=== PATIENT | male | born 1955 | race Caucasian/White ===

== ENCOUNTER 2016-08-02 19:27 | Emergency (ER) | payer MEDICAID, MEDICARE ==
[~2016-08-02] VITALS: Ht 182.9 cm; Wt 113.4 kg
[~2016-08-02 19:27] MED LIST: ACHD5005 PO; ALBU0.632 IH; ALBU8.5HRX IH; ALPR-557 PO; ALPR1T PO; ALPR1TAB2 PO; ASP81TEC PO; CLN150C PO; CYCL10TA9 PO; ESCI20TA38 PO; GABA-488 PO; GBPN300C PO; HYDR25TA4 PO; IBP600T1 PO; LCT30U PO; LISI1TAB PO; MAGN400T6 PO; METO100T2 PO; MGX400T PO; MRTZ15T PO; MULT-974 PO; NAPR-243 PO; ORPH100T PO; ORPHENADRINE ER PO; OXYC10TA7 PO; PRD20T PO; PROP20TA23 PO; PROP40TA5 PO; RT-ALBUINH IH; SULF-222 PO; TRZ100T PO
--- NOTE | 2016-08-02 19:56 | ED Cough/URI ---
General Chief Complaint: Respiratory Problems Stated Complaint: TROUBLE BREATHING Nursing Triage Note: Patient reports SOA x 5 days and being unable to sleep Source: patient Exam Limitations: no limitations History of Present Illness Time seen by provider: 19:55 Initial Comments Patient complains of wheezing and dyspnea for the past week. He denies fevers or chills. He has a slight cough. No chest pain. No edema. No calf pain. Allergies and Home Medications Allergies Coded Allergies: No Known Drug Allergies (Unverified , 12/05/11) Home Medications Alprazolam 1 Mg Tab, 1 MG PO TID PRN for ANXIETY, (Reported) NEEDED FOR ANXIETY Aspirin 81 Mg Tabec, 81 MG PO DAILY, (Reported) Cyclobenzaprine Hcl 10 Mg Tablet, 10 MG PO BID PRN for MUSCLE SPASMS, (Reported) NEEDED FOR MUSCLE SPASMS Escitalopram Oxalate 20 Mg Tablet, 20 MG PO DAILY, (Reported) Gabapentin 300 Mg Cap, 300 MG PO BID, (Reported) TAKES IN THE MORNING AND AROUND 1400 Gabapentin 300 Mg Capsule, 1,200 MG PO HS, (Reported) TAKES 4 (300MG) CAPSULES AT BEDTIME Hydrochlorothiazide 25 Mg Tablet, 25 MG PO DAILY, (Reported) Mirtazapine 15 Mg Tab, 15 MG PO HS, (Reported) Multivitamin 1 Each Tablet, 1 TAB PO DAILY, (Reported) Propranolol Hcl 40 Mg Tablet, 40 MG PO TID, (Reported) Constitutional: no symptoms reported Respiratory: cough, dyspnea on exertion, short of breath Cardiovascular: no symptoms reported, No chest pain, No edema Gastrointestinal: No abdominal pain Musculoskeletal: no symptoms reported All Other Systems Reviewed Negative Unless Noted: Yes Past Wlwmedz-Winlyy-Jctdki Hx Patient Social History Alcohol Use: Denies Use Recreational Drug Use: No Smoking Status: Never a Smoker Recent Foreign Travel: No Contact w/Someone Who Travel: No Recent Infectious Disease Expo: No Recent Hopitalizations: No Immunizations Up To Date Tetanus Booster (TDap): More than 5yrs PED Vaccines UTD: No Date of Pneumonia Vaccine: Jan 12, 2012 Date of Influenza Vaccine: Jan 11, 2014 Seasonal Allergies Seasonal Allergies: Yes Surgeries HX Surgeries: Yes (CARDIAC STENT) Respiratory Hx Respiratory Disorders: Yes Respiratory Disorders: Sleep Apnea, COPD Cardiovascular Hx Cardiac Disorders: Yes (CHF, CARDIAC STENT X1 ) Cardiac Disorders: Heart Murmur, Hypertension Neurological Hx Neurological Disorders: Yes Neurological Disorders: TIA Reproductive System Hx Reproductive Disorders: No Sexually Transmitted Disease: No HIV/AIDS: No Genitourinary Hx Genitourinary Disorders: No Gastrointestinal Hx Gastrointestinal Disorders: Yes (HEPATITIS C) Gastrointestinal Disorders: Hepatitis Musculoskeletal Hx Musculoskeletal Disorders: No (FX RIGHT THUMB, LEFT LEG AND NOSE, left hip) Musculoskeletal Disorders: Fractures Endocrine Hx Endocrine Disorders: No HEENT HX ENT Disorders: No Cancer Hx Cancer: Yes (lip, from chewing tobacco) Psychosocial Hx Psychiatric Problems: Yes Behavioral Health Disorders: Sleep Difficulties, Anxiety, Depression Integumentary HX Skin/Integumentary Disorder: No Blood Transfusions Hx Blood Disorders: Yes (HEPATITIS) Adverse Reaction to a Blood Tr: No Reviewed Nursing Assessment Reviewed/Agree w Nursing PMH: Yes Family Medical History Significant Family History: No Pertinent Family Hx Family Medial History: Family history: Hypertension Heart disease Physical Exam Vital Signs Vital Sign - Last 12Hours 08/02/16 19:48 Temp 98.2 Pulse 61 Resp 18 B/P (MAP) 174/76 Pulse Ox 95 Capillary Refill : Less Than 3 Seconds General Appearance: WD/WN, no apparent distress Eyes: Bilateral Eye EOMI, Bilateral Eye PERRL HEENT: pharynx normal Neck: supple Respiratory: lungs clear, normal breath sounds Cardiovascular: regular rate, rhythm, no edema Gastrointestinal: non tender, soft Extremities: normal inspection Neurologic/Psychiatric: alert, normal mood/affect Skin: normal color, warm/dry Progress/Results/Core Measures Results/Orders My Orders Orders - TARA SANABRIA MD Chest Pa/Lat (2 View) (08/02/16 19:52) Vital Signs/I&O Vital Sign - Last 12Hours 08/02/16 19:48 Temp 98.2 Pulse 61 Resp 18 B/P (MAP) 174/76 Pulse Ox 95 Blood Pressure Mean: 108 Departure Impression Impression: Primary Impression: Dyspnea Additional Impression: Upper respiratory infection Disposition: 01 HOME, SELF-CARE Condition: Stable Departure-Patient Inst. Decision time for Depature: 20:53 Referrals: [facility] (PCP/Family) Primary Care Physician Patient Instructions: Shortness of Breath (Dyspnea) Add. Discharge Instructions: See your DrEzio next week as soon as possible. All discharge instructions reviewed with patient and/or family. Voiced understanding. TARA SANABRIA MD Aug 02, 2016 19:56
--- NOTE | 2016-08-02 20:41 | Diagnostic Imaging Report ---
EXAMINATION: CHEST (PA AND LATERAL) CLINICAL INDICATION: 61-year-old male, difficulty breathing. COMPARISON: March 17, 2014. FINDINGS: There are redemonstrated right paratracheal calcifications as well as right hilar calcification likely relating to calcified lymph nodes and sequela of prior granulomatous disease. These are unchanged. Stable overall appearance of the cardiomediastinal silhouette. There is no identified pneumothorax. There is no pleural effusion. There is no identified focal airspace consolidation. There are areas of productive bone formation in the distribution of the coracoclavicular ligaments on the right likely relating to sequela of remote prior injury. IMPRESSION: 1. No identified acute cardiopulmonary abnormality. 2. Sequela of prior granulomatous disease. Dictated by: Dictated on workstation # [id number]
[2016-08-02 20:55] VITALS: BP 168/74
== END 2016-08-02 20:55 | disposition home or self-care (01) ==
LOC: EDUNIT# 19:27 → ER 19:28
DX: J06.9 Acute upper respiratory infection, unspecified (principal); H44.9 Unspecified disorder of globe; I10 Essential (primary) hypertension; Z79.82 Long term (current) use of aspirin; Z79.899 Other long term (current) drug therapy
CPT/HCPCS: 71020; 99282

== ENCOUNTER 2018-02-08 18:46 | Emergency (ER) | payer MEDICARE ==
[~2018-02-08] VITALS: Ht 182.9 cm; Wt 106.6 kg
[2018-02-08 19:35] LABS: BASOPHILS % (AUTO) 0 % (0-10); EOSINOPHILS # (AUTO) 0.2 10^3/uL (0.0-0.3); EOSINOPHILS % (AUTO) 3 % (0-10); HEMATOCRIT 42 % (40-54); HEMOGLOBIN 15.3 G/DL (13.3-17.7); LYMPHOCYTES # (AUTO) 2.8 X 10^3 (1.0-4.0); LYMPHOCYTES % (AUTO) 37 % (12-44); MEAN CORPUSCULAR HEMOGLOBIN 32 PG (25-34); MEAN CORPUSCULAR HGB CONC 37 G/DL (32-36); MEAN CORPUSCULAR VOLUME 87 FL (80-99); MONOCYTES # (AUTO) 0.7 X 10^3 (0.0-1.0); MONOCYTES % (AUTO) 9 % (0-12); NEUTROPHILS # (AUTO) 3.9 X 10^3 (1.8-7.8); NEUTROPHILS % (AUTO) 51 % (42-75); PLATELET COUNT 153 10^3/uL (130-400); RED BLOOD COUNT 4.79 10^6/uL (4.35-5.85); RED CELL DISTRIBUTION WIDTH 12.2 % (10.0-14.5); WHITE BLOOD COUNT 7.6 10^3/uL (4.3-11.0)
[2018-02-08 19:52] LABS: BILIRUBIN,URINE NEGATIVE (NEGATIVE); CLARITY,URINE CLEAR; COLOR,URINE YELLOW; GLUCOSE, URINE (UA) NEGATIVE (NEGATIVE); KETONES,URINE 1+ (NEGATIVE); LEUKOCYTE ESTERASE ,URINE 1+ (NEGATIVE); NITRITE,URINE NEGATIVE (NEGATIVE); PH,URINE 5 (5-9); PROTEIN,URINE NEGATIVE (NEGATIVE); UROBILINOGEN,URINE NORMAL (NORMAL)
[2018-02-08 20:02] LABS: ALBUMIN 4.5 GM/DL (3.2-4.5); BILIRUBIN,TOTAL 0.5 MG/DL (0.1-1.0); CALCIUM 11.7 MG/DL (8.5-10.1); CREATININE SERUM 1.39 MG/DL (0.60-1.30); POTASSIUM 3.9 MMOL/L (3.6-5.0); TOTAL PROTEIN 7.8 GM/DL (6.4-8.2)
[2018-02-08 20:05] LABS: BACTERIA,URINE FEW /HPF; RBC,URINE RARE /HPF; SQUAMOUS EPITHELIAL CELL,UR 0-2 /HPF
--- NOTE | 2018-02-08 20:27 | ED GU-Male ---
General Chief Complaint: Abdominal/GI Problems Stated Complaint: N/V/D Nursing Triage Note: PT STATES HE HAS BEEN EXPERIENCING N/V/D FOR THE LAST THREE WEEKS. STATES IN THE MORNING HE VOMITS FOAMY EMESIS THAT IS CLEAR-GREENISH IN COLOR. STATES STOOLS ARE ALSO GREEN IN COLOR. Source: patient Exam Limitations: no limitations History of Present Illness Date Seen by Provider: Feb 08, 2018 Time Seen by Provider: 19:15 Initial Comments The patient is a 62 year old male who presents to the emergency room with complaints of nausea, vomiting, and diarrhea for the past 3 weeks. Denies abdominal pain. Timing/Duration: week (3 weeks) Associated Symptoms: nausea/vomiting Allergies and Home Medications Allergies Coded Allergies: No Known Drug Allergies (Unverified , 12/05/11) Home Medications Alprazolam 1 Mg Tab, 1 MG PO TID PRN for ANXIETY, (Reported) NEEDED FOR ANXIETY Aspirin 81 Mg Tabec, 81 MG PO DAILY, (Reported) Cyclobenzaprine Hcl 10 Mg Tablet, 10 MG PO BID PRN for MUSCLE SPASMS, (Reported) NEEDED FOR MUSCLE SPASMS Escitalopram Oxalate 20 Mg Tablet, 20 MG PO DAILY, (Reported) Gabapentin 300 Mg Cap, 300 MG PO BID, (Reported) TAKES IN THE MORNING AND AROUND 1400 Gabapentin 300 Mg Capsule, 1,200 MG PO HS, (Reported) TAKES 4 (300MG) CAPSULES AT BEDTIME Hydrochlorothiazide 25 Mg Tablet, 25 MG PO DAILY, (Reported) Mirtazapine 15 Mg Tab, 15 MG PO HS, (Reported) Multivitamin 1 Each Tablet, 1 TAB PO DAILY, (Reported) Ondansetron 4 Mg Tab.rapdis, 4 MG SL Q4H PRN for NAUSEA/VOMITING-1ST LINE Prescribed by: LUIS ENRIQUE JAMIL on 02/08/182035 Propranolol Hcl 40 Mg Tablet, 40 MG PO TID, (Reported) Sulfamethoxazole/Trimethoprim 1 Each Tablet, 1 EACH PO BID Prescribed by: LUIS ENRIQUE JAMIL on 02/08/182035 Patient Home Medication List Home Medication List Reviewed: Yes Review of Systems Review of Systems Constitutional: no symptoms reported, see HPI Gastrointestinal: see HPI, diarrhea, nausea, vomiting All Other Systemes Reviewed Negative Unless Noted: Yes Past Kkrpxvp-Kxjhfs-Jcvbag Hx Past Med/Social Hx: Reviewed Nursing Past Med/Soc Hx Patient Social History Alcohol Use: Occasionally Uses Alcohol Beverage of Choice: Beer Recreational Drug Use: No (6-7 YEARS CLEAN OF IV DRUGS) Smoking Status: Current Everyday Smoker Type Used: Smokeless Tobacco Recent Foreign Travel: No Contact w/Someone Who Travel: No Recent Infectious Disease Expo: No Recent Hopitalizations: No Immunizations Up To Date Tetanus Booster (TDap): More than 5yrs PED Vaccines UTD: No Date of Pneumonia Vaccine: Jan 12, 2012 Date of Influenza Vaccine: Jan 11, 2014 Seasonal Allergies Seasonal Allergies: Yes Past Medical History Surgeries: Yes (CARDIAC STENT) Respiratory: Yes Sleep Apnea, COPD Cardiac: Yes (CHF, CARDIAC STENT X1 ) Heart Murmur, Hypertension Neurological: Yes TIA Reproductive Disorders: No Sexually Transmitted Disease: No HIV/AIDS: No Gastrointestinal: Yes (HEPATITIS C) Hepatitis Musculoskeletal: No (FX RIGHT THUMB, LEFT LEG AND NOSE, left hip) Fractures Endocrine: No Cancer: Yes (lip, from chewing tobacco) Psychosocial: Yes Sleep Difficulties, Anxiety, Depression Integumentary: No Blood Disorders: Yes (HEPATITIS) Adverse Reaction/Blood Tranf: No Family Medical History Reviewed Nursing Family Hx Family history: Hypertension Heart disease No Pertinent Family Hx Physical Exam Vital Signs Vital Signs - First Documented 02/08/18 19:15 Temp 98.4 Pulse 107 Resp 22 B/P (MAP) 152/115 (127) Pulse Ox 96 O2 Delivery Room Air Capillary Refill : Less Than 3 Seconds Height, Weight, BMI Height: 6'0" Weight: 235lbs. oz. [id number]; 27.12 BMI Method:Stated General Appearance: WD/WN, no apparent distress Cardiovascular: normal peripheral pulses, regular rate, rhythm, no edema, no gallop, no JVD, no murmur Respiratory: chest non-tender, lungs clear, normal breath sounds, no respiratory distress, no accessory muscle use Gastrointestinal: normal bowel sounds, non tender, soft, no organomegaly, no pulsatile mass Neurologic/Psychiatric: alert, normal mood/affect, oriented x 3 Skin: normal color, warm/dry Progress/Results/Core Measures Suspected Sepsis Recent Fever Within 48 Hours: No Infection Criteria Present: Suspected New Infection New/Unexplained Altered Menta: No Sepsis Screen: Possible Sepsis Risk SIRS Temperature:98.4 Pulse: 107 Respiratory Rate: 22 Laboratory Tests 02/08/18 19:28: White Blood Count 7.6 Blood Pressure 152 /115 Mean: 127 Laboratory Tests 02/08/18 19:28: Creatinine 1.39H, Platelet Count 153, Total Bilirubin 0.5 Results/Orders Lab Results Laboratory Tests Test 02/08/18 19:28 02/08/18 19:41 Range/Units White Blood Count 7.6 4.3-11.0 10^3/uL Red Blood Count 4.79 4.35-5.85 10^6/uL Hemoglobin 15.3 13.3-17.7 G/DL Hematocrit 42 40-54 % Mean Corpuscular Volume 87 80-99 FL Mean Corpuscular Hemoglobin 32 25-34 PG Mean Corpuscular Hemoglobin Concent 37 H 32-36 G/DL Red Cell Distribution Width 12.2 10.0-14.5 % Platelet Count 153 130-400 10^3/uL Mean Platelet Volume 10.0 7.4-10.4 FL Neutrophils (%) (Auto) 51 42-75 % Lymphocytes (%) (Auto) 37 12-44 % Monocytes (%) (Auto) 9 0-12 % Eosinophils (%) (Auto) 3 0-10 % Basophils (%) (Auto) 0 0-10 % Neutrophils # (Auto) 3.9 1.8-7.8 X 10^3 Lymphocytes # (Auto) 2.8 1.0-4.0 X 10^3 Monocytes # (Auto) 0.7 0.0-1.0 X 10^3 Eosinophils # (Auto) 0.2 0.0-0.3 10^3/uL Basophils # (Auto) 0.0 0.0-0.1 10^3/uL Sodium Level 135 135-145 MMOL/L Potassium Level 3.9 3.6-5.0 MMOL/L Chloride Level 100 98-107 MMOL/L Carbon Dioxide Level 22 21-32 MMOL/L Anion Gap 13 5-14 MMOL/L Blood Urea Nitrogen 18 7-18 MG/DL Creatinine 1.39 H 0.60-1.30 MG/DL Estimat Glomerular Filtration Rate 52 BUN/Creatinine Ratio 13 Glucose Level 86 70-105 MG/DL Calcium Level 11.7 H 8.5-10.1 MG/DL Corrected Calcium 11.3 H 8.5-10.1 MG/DL Total Bilirubin 0.5 0.1-1.0 MG/DL Aspartate Amino Transf (AST/SGOT) 39 H 5-34 U/L Alanine Aminotransferase (ALT/SGPT) 30 0-55 U/L Alkaline Phosphatase 70 40-136 U/L Total Protein 7.8 6.4-8.2 GM/DL Albumin 4.5 3.2-4.5 GM/DL Lipase 47 8-78 U/L Urine Color YELLOW Urine Clarity CLEAR Urine pH 5 5-9 Urine Specific [place] 1.020 1.016-1.022 Urine Protein NEGATIVE NEGATIVE Urine Glucose (UA) NEGATIVE NEGATIVE Urine Ketones 1+ H NEGATIVE Urine Nitrite NEGATIVE NEGATIVE Urine Bilirubin NEGATIVE NEGATIVE Urine Urobilinogen NORMAL NORMAL MG/DL Urine Leukocyte Esterase 1+ H NEGATIVE Urine RBC (Auto) NEGATIVE NEGATIVE Urine RBC RARE /HPF Urine WBC 5-10 H /HPF Urine Squamous Epithelial Cells 0-2 /HPF Urine Crystals NONE /LPF Urine Bacteria FEW H /HPF Urine Casts NONE /LPF Urine Mucus NEGATIVE /LPF Urine Culture Indicated YES Micro Results Microbiology 02/08/18 Urine Culture - Final, Complete NO GROWTH My Orders Orders - LUIS ENRIQUE JAMIL Comprehensive Metabolic Panel (02/08/18 19:20) Lipase (02/08/18 19:20) Ua Culture If Indicated (02/08/18 19:20) Saline Lock/Iv-Start (02/08/18 19:20) Cbc With Automated Diff (02/08/18 19:20) Urine Culture (02/08/18 19:41) Sulfamethoxazole/Trimet Ds Tab (Bactrim (02/08/18 20:45) Rx-Ondansetron Po (Rx-Zofran Po) (02/08/18 20:37) Vital Signs/I&O 02/08/18 02/08/18 19:15 21:10 Temp 98.4 98.3 Pulse 107 78 Resp 22 18 B/P (MAP) 152/115 (127) 136/96 (109) Pulse Ox 96 98 O2 Delivery Room Air Room Air Capillary Refill : Less Than 3 Seconds Blood Pressure Mean: 127 Departure Impression Primary Impression: Urinary tract infection Disposition: 01 HOME, SELF-CARE Condition: Stable/Unchanged Departure-Patient Inst. Decision time for Depature: 20:34 Referrals: [facility] (PCP) Primary Care Physician ROSIO IRBY (Family) Primary Care Physician Patient Instructions: Urinary Tract Infection, Adult (DC) Add. Discharge Instructions: Take medications as directed. Follow-up with your primary care provider within 1 week for recheck. Call tomorrow morning to [facility] and let them know he was seen in the emergency room and imaging a to be seen within 1 week. Drink plenty of clear liquids like water to stay hydrated. Return back to the emergency room for any worsening symptoms or concerns as needed. All discharge instructions reviewed with patient and/or family. Voiced understanding. Scripts Ondansetron (Zofran Odt) 4 Mg Tab.rapdis 4 MG SL Q4H PRN for NAUSEA/VOMITING-1ST LINE, #14 TAB Prov: LUIS ENRIQUE JAMIL 02/08/18 Sulfamethoxazole/Trimethoprim (Bactrim Ds Tablet) 1 Each Tablet 1 EACH PO BID for 7 Days, #14 TAB Prov: LUIS ENRIQUE JAMIL 02/08/18 LUIS ENRIQUE JAMIL Feb 08, 2018 20:27
[2018-02-08] MEDS ORDERED: SULF1TAB35 PO (20:36)
[2018-02-08] MEDS ORDERED: ONDA4TAB8 SL (20:36)
[2018-02-08] MEDS ORDERED: RX-ONDANSETRON 4 MG ODT (ZOFRAN) PPK #4 PO STA (20:37)
[2018-02-08] MEDS ORDERED: TRIM/SULFAMETH 160/800 (SEPTRA DS) TAB PO ONE (20:45)
[2018-02-08 21:10] VITALS: BP 136/96
--- OUTSIDE RECORDS SUMMARY | 2018-02-08 21:11 | XMS REPORT ---
Author Author ROSIO IRBY Organization [facility] Address [address] [place] [address] Care Team Providers Care Ribbon Winder Name Role Phone ROSIO IRBY Unavailable PROBLEMS Type Condition ICD9-CM Code ZZR17-GR Code Onset Dates Condition Status SNOMED Code Problem History of alcohol abuse Z87.898 Active 579032624 Problem Allergic rhinitis, unspecified allergic rhinitis type J30.9 Active 88939848 Problem Chronic hepatitis C without hepatic coma B18.2 Active 579448727 Problem Mood disorder F39 Active 48289502 Problem Other chronic pain G89.29 Active 66953939 Problem Mild episode of recurrent major depressive disorder F33.0 Active 574802756 Problem Obsessive compulsive disorder F42 Active 296569116 Problem Hyperammonemia E72.20 Active 6582460 Problem Generalized anxiety disorder F41.1 Active 76775399 Problem Hypertension, benign I10 Active 48667682 ALLERGIES No Known Allergies ENCOUNTERS Encounter Location Date Diagnosis [place] [id number] [place] [address] 44914- 8451 Jan, Mood disorder F39 [facility] [id number] [place] [address] 45398- 8111 Jan, Chronic hepatitis C without hepatic coma B18.2 [facility] [id number] [place] [address] 80884- 2463 Dec, Mild episode of recurrent major depressive disorder F33.0 ; Other chronic pain G89.29 ; Pain in left shoulder M25.512 and Pain in right shoulder M25.511 [facility] [id number] [place] [address] 52314- 3443 Dec, Chronic hepatitis C without hepatic coma B18.2 [place] [id number] [place] [address] 18425- 8489 Nov, Chronic hepatitis C without hepatic coma B18.2 [facility] [id number] [address] 3503 Oct, Bronchitis J40 [facility] [id number] [place] [address] 79285- 2241 10 Oct, 2017 Chronic hepatitis C without hepatic coma B18.2 and Cough R05 [facility] [id number] [place] [address] 44449- 0406 Sep, Chronic hepatitis C without hepatic coma B18.2 [facility] [id number] [place] [address] 59786- 6725 August, Chronic hepatitis C without hepatic coma B18.2 [facility] [id number] [place] [address] 40627- 0716 Jul, Chronic hepatitis C without hepatic coma B18.2 [facility] [id number] [place] [address] 63376- 6563 Jul, Generalized anxiety disorder F41.1 ; Mood disorder F39 and History of hepatitis C Z86.19 [facility] [id number] [place] [address] 57897- 0749 Jul, Chronic hepatitis C without hepatic coma B18.2 [facility] [id number] [address]- 9833 Jun, Chronic hepatitis C without hepatic coma B18.2 [facility] [id number] [address]- 7472 Jun, [facility] [id number] [place] [address] 47586- 6914 May, Chronic hepatitis C without hepatic coma B18.2 [facility] [id number] [place] [address] 17588- 4871 May, Hypertension, benign I10 [facility] [id number] [place] [address] 85538- 9934 Apr, Chronic hepatitis C without hepatic coma B18.2 [facility] [id number] [place] [address] 70395- 9480 Apr, Hypertension, benign I10 [facility] [id number] [place] [address] 99258- 9864 Mar, Chronic hepatitis C without hepatic coma B18.2 [facility] [address] 10762- 7921 Mar, Hypertension, benign I10 [place] [address] 99633- 9186 Mar, Hypertension, benign I10 ; Encounter for immunization Z23 and Strain of right Achilles tendon, initial encounter S86.011A [place] [address] 07620- 5130 Feb, Chronic hepatitis C without hepatic coma B18.2 [place] [address] 90984- 5125 Jan, Chronic hepatitis C without hepatic coma B18.2 [facility] [address] 75466 -5096 Jan, Toe pain, right M79.674 and Cellulitis of foot, right L03.115 [facility] [id number] [place] [address] 32916- 1125 Dec, Chronic hepatitis C without hepatic coma B18.2 [facility] [id number] [place] [address] 53875- 7347 Nov, Chronic hepatitis C without hepatic coma B18.2 and Eczema of both hands L30.9 [place] [address] 14601- 3831 Nov, [facility] [id number] [place] [address] 65573- 1998 Oct, [facility] [address] 15253- 1898 Sep, [facility] [address] [address]- 8143 August, [facility] [address] 3651 August, [facility] [address] [place] [address]- 5396 Jul, [facility] [id number] [place] [address] 30216- 1761 Jul, [facility] [address], [place] [address]- 6648 Jun, [facility] [address] [place] [address]- 2849 Jun, [facility] [address] [address]- 9050 May, [facility] [address], [place] [address]- 7644 Apr, Chronic hepatitis C without hepatic coma B18.2 ; Hyperglycemia R73.9 and Hypertension, benign I10 [facility] [address], [place] [address]- 2644 Apr, Chronic hepatitis C without hepatic coma B18.2 ; Mood disorder F39 ; Hypertension, benign I10 and Hyperglycemia R73.9 [facility] [address], [place] [address]- 0474 Apr, [facility] [address] [place] [address]- 8082 Apr, [facility] [address], [place] [address]- 5698 Apr, [facility] [address], [place] [address]- 6435 Feb, [facility] [address], [place] [address]- 3334 Feb, [facility] [id number] [place] [address] 54258- 5682 Feb, [facility] [id number] [place] [address] 43149- 0998 Feb, [facility] [id number] [place] [address] 57403- 4889 Jan, [facility] [address] 10654- 4047 Jan, Chronic hepatitis C without hepatic coma B18.2 ; Mood disorder F39 ; Encounter for immunization Z23 and Chronic viral hepatitis C B18.2 [facility] [id number] [place] [address] 95509- 8343 Jan, [facility] [id number] [place] [address] 66150- 5861 Jan, [facility] [id number] [place] [address] 95445- 2948 Dec, [facility] [id number] [place] [address] 90845- 8779 Dec, [facility] [id number] [place] [address] 41594- 8502 Nov, [facility] [id number] [place] [address] 11130- 3767 Nov, Weakness of both legs M62.81 [facility] [id number] [place] [address] 18917- 4498 Nov, [facility] [id number] [place] [address] 91958- 5656 Nov, [facility] [id number] [place] [address] 93653- 9764 Nov, [facility] [id number] [place] [address] 96717- 6304 Nov, Eczema, unspecified type L30.9 [facility] [address], [place] [address]- 4658 Nov, [facility] [id number] [place] [address] 24091- 7299 Nov, Eczema, unspecified type L30.9 ; Cessation of tobacco use in previous 12 months Z87.891 and Weakness of both legs M62.81 [facility] [id number] [place] [address] 32727- 4935 Oct, [facility] [id number] [place] [address] 23653- 7363 Oct, [facility] [id number] [place] [address] 73198- 6540 Oct, [place] [id number] [place] [address] 35972- 5316 Oct, Chronic viral hepatitis C B18.2 [place] [id number] [place] [address] 37833- 7845 Sep, [place] [id number] [place] [address] 82497- 5286 Sep, 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 and Generalized anxiety disorder F41.1 [place] [address], [place] [address]- 1835 Sep, [facility] [id number] [address]- 1476 August, [facility] [address], [place] [address]- 6253 August, Hyperammonemia E72.20 [place] [id number] [place] [address] 32585- 2392 August, Hyperammonemia E72.20 [facility] [address], [place] [address]- 0832 August, Hyperammonemia E72.20 and Chronic hepatitis C without hepatic coma B18.2 [facility] [address] [place] [address] 2546 August, Chronic viral hepatitis C B18.2 [facility] [address] [place] [address] 2546 August, [facility] [address] [place] [address] 2546 28 Jul, 2015 Chronic viral hepatitis C B18.2 and Hyperammonemia E72.20 [facility] [address] [place] [address] 2546 Jul, Chronic viral hepatitis C B18.2 [facility] [address] [place] [address] 2546 Jul, [facility] [address], [place] [address] 2546 Jul, [facility] [address], [place] [address] 2546 28 Jun, 2015 [facility] [address], [place] [address] 2546 23 Jun, 2015 Chronic viral hepatitis C B18.2 and Hyperammonemia E72.20 [facility] [address], [place] [address] 2546 Jun, [facility] [address], [place] [address] 2546 18 Jun, 2015 [facility] [address], [place] [address] 2546 16 Jun, 2015 Chronic viral hepatitis C B18.2 [facility] [address], [place] [address] 2546 10 Jun, 2015 [facility] [address], [place] [address] 2546 07 Jun, 2015 Chronic viral hepatitis C B18.2 [facility] [id number] [place] [address] 12386- 8878 17 May, 2015 Hepatitis C, chronic B18.2 and Chronic viral hepatitis C B18.2 [facility] [id number] [place] [address] 43644- 4710 15 May, 2015 [facility] [id number] [place] [address] 29894- 8923 Apr, [facility] [id number] [place] [address] 61159- 7740 Apr, Chronic viral hepatitis C B18.2 and Hyperammonemia E72.20 [facility] [id number] [place] [address] 87048- 3276 Apr, Chronic viral hepatitis C B18.2 [facility] [id number] [place] [address] 69662- 9078 Apr, Hyperammonemia E72.20 [facility] [id number] [place] [address] 64048- 4020 Apr, [facility] [id number] [place] [address] 61720- 9026 Apr, [facility] [id number] [place] [address] 19313- 8108 Apr, Chronic hepatitis C without hepatic coma B18.2 ; Hyperammonemia E72.20 and Chronic viral hepatitis C B18.2 [place] [id number] [place] [address] 43244- 6948 Mar, Shortness of breath R06.02 [facility] [id number] [place] [address] 64020- 8916 Mar, Mood disorder F39 and Major depressive disorder, recurrent episode, unspecified 296.30 [facility] [id number] [place] [address] 77532- 0767 Mar, [facility] [id number] [place] [address] 62896- 9172 Mar, [facility] [id number] [place] [address] 31976- 5287 Mar, [facility] [id number] [place] [address] 65738 -3856 Mar, Seasonal allergies J30.2 ; Shortness of breath R06.02 and Cough R05 [facility] [address] 53476- 3033 Mar, Hyperammonemia E72.20 ; Mood disorder F39 and History of alcohol abuse Z87.898 [facility] [address] 07378- 8727 Mar, Hyperammonemia E72.20 [facility] [id number] [place] [address] 70514- 7417 Mar, [facility] [id number] [place] [address] 12550- 8427 Feb, [facility] [id number] [place] [address] 16446- 7547 Feb, [facility] [id number] [place] [address] 66363- 5480 Feb, Hyperammonemia E72.20 [facility] [id number] [place] [address] 14219- 0320 Feb, [facility] [id number] [place] [address] 38138- 8019 Feb, [facility] [id number] [place] [address] 82694- 8319 Feb, [facility] [address] 36752- 1127 Feb, [facility] [id number] [place] [address] 39511- 5107 Feb, Chronic viral hepatitis C B18.2 [facility] [id number] [address]- 0786 Feb, Chronic viral hepatitis C B18.2 [facility] [id number] [place] [address] 90828- 9956 Feb, [facility] [id number] [place] [address] 23824- 4918 Feb, Chronic viral hepatitis C B18.2 and Confusion R41.0 [facility] [id number] [place] [address] 45005- 5608 Feb, [facility] [id number] [place] [address] 94146- 8189 Jan, [facility] [id number] [place] [address] 41040- 2511 Jan, Confusion R41.0 [facility] [id number] [place] [address] 88318- 1098 Jan, [facility] [id number] [place] [address] 34065- 3648 Jan, [facility] [id number] [place] [address] 80198- 1260 Jan, [facility] [id number] [place] [address] 38413- 3496 Jan, [facility] [id number] [place] [address] 44911- 1019 Jan, Chronic viral hepatitis C B18.2 and 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 [facility] [address], [place] [address]- 3626 Jan, [facility] [id number] [place] [address] 17264- 0218 Jan, [facility] [address], [place] [address]- 2275 Jan, [facility] [id number] [place] [address] 23992- 9459 Jan, [facility] [id number] [place] [address] 31620- 5942 Jan, Chronic viral hepatitis C B18.2 [facility] [id number] [place] [address] 44081- 5345 16 Jan, 2015 [facility] [address] 50173- 3448 14 Jan, 2015 Back pain at L4-L5 level M54.5 and Confusion R41.0 [facility] [address] 99366- 3124 Jan, [facility] [address] 48499- 4032 30 Dec, 2014 Chronic viral hepatitis C B18.2 and Flu vaccine need V04.81 [facility] [address] 38573- 8247 30 Dec, 2014 Chronic viral hepatitis C B18.2 [facility] [id number] [place] [address] 33228- 5553 28 Dec, 2014 [facility] [id number] [place] [address] 20010- 8571 22 Dec, 2014 Polyuria 788.42 [place] [id number] [place] [address] 89349- 1701 Dec, Polyuria 788.42 ; Polydipsia 783.5 ; Dizziness 780.4 and Hepatitis C, chronic 070.54 [facility] [id number] [place] [address] 14890- 5798 10 Dec, 2014 Major depressive disorder, recurrent episode, unspecified 296.30 and Generalized anxiety disorder 300.02 [facility] [id number] [place] [address] 73706- 1089 Nov, [facility] [address] 00453- 4221 Nov, [facility] [address], [place] [address]- 2256 Nov, [facility] [address], [place] [address]- 0936 Oct, [facility] [address], [place] [address]- 7676 Sep, [facility] [id number] [place] [address] 25477- 2726 August, Obsessive-compulsive disorders 300.3 ; Generalized anxiety disorder 300.02 and Major depressive disorder, recurrent episode, unspecified 296.30 [facility] [id number] [place] [address] 37801- 6496 August, Chronic hepatitis C without mention of hepatic coma 070.54 ; Hypertension 401.9 and Seasonal allergies 477.9 [facility] [id number] [place] [address] 99431- 0066 Jul, [facility] [address], [place] [address]- 0986 Jul, [facility] [id number] [place] [address] 59619- 6726 Jun, [facility] [address], [place] [address]- 0626 Jun, [facility] [id number] [place] [address] 56648- 9666 May, [facility] [address], [place] [address]- 2546 May, [facility] [address], [place] [address]- 2546 May, [facility] [address], [place] [address]- 2546 May, [facility] [id number] [place] [address] 27237- 0195 Apr, [facility] [place] [facility] [address] [id number] [place] [address]- 5308 Apr, [facility] [place] [facility] [address] [id number] [place] [address]- 6633 Apr, [facility] [place] [facility] [address] [id number] [place] [address]- 8895 Apr, [facility] [place] [facility] [address] [id number] [place] [address]- 2431 Apr, [facility] [place] [facility] [address] [id number] [place] [address]- 7891 Apr, [facility] [place] [facility] [address] [id number] [place] [address]- 5443 Mar, [facility] [place] [facility] [address] [id number] [place] [address]- 9361 Mar, [facility] [place] [facility] [address] [id number] [place] [address]- 8240 Mar, [facility] [place] [facility] [address] [id number] [place] [address]- 6199 Mar, [facility] [place] [facility] [address] [id number] [place] [address]- 4685 Mar, [facility] [place] [facility] [address] [id number] [place] [address]- 2634 Mar, [facility] [place] [facility] [address] [id number] [place] [address]- 8474 Mar, [facility] [place] [facility] [address] [id number] [place] [address]- 0493 Mar, [facility] [place] [facility] [address] [id number] [place] [address]- 2972 Mar, [facility] [place] [facility] [address] [id number] [place] [address]- 0078 Feb, [facility] [place] [facility] [address] [id number] [place] [address]- 0449 Feb, [facility] [place] [facility] [address] [id number] [place] [address]- 3157 Feb, [facility] [place] [facility] [address] [id number] [place] [address]- 9456 Feb, [facility] [place] [facility] [address] [id number] [place] 3284 Feb, [facility] [place] [facility] [address] [id number] [place] [address]- 8230 Jan, [facility] [place] [facility] [address] [id number] [place] [address]- 0960 Jan, [facility] [place] [facility] [address] [id number] [place] [address]- 9723 Jan, [facility] [place] [facility] [address] [id number] [place] [address]- 6730 Jan, [facility] [place] [facility] [address] [id number] [place] [address]- 6795 Jan, [facility] [place] [facility] [address] [id number] [place] [address]- 2308 Jan, [facility] [place] [facility] [address] [id number] [place] [address]- 5259 Jan, [facility] [place] [facility] [address] [id number] [place] [address]- 2462 Jan, [facility] [place] [facility] [address] [id number] [place] [address]- 0374 Jan, [facility] [place] [facility] [address] [id number] [place] [address]- 7941 Nov, [facility] [place] [facility] [address] [id number] [place] [address] Nov, [facility] [place] [facility] [address] [id number] [place] [address] Nov, [facility] [place] [facility] [address] [id number] [place] [address] Oct, [facility] [place] [facility] [address] [id number] [place] [address] Oct, [facility] [place] [facility] [address] [id number] [place] [address] Oct, [facility] [place] [facility] [address] [id number] [place] [address] Oct, [facility] [place] [facility] [address] [id number] [place] [address] Sep, [facility] [place] [facility] [address] [id number] [place] [address] Sep, [facility] [place] [facility] [address] [id number] [place] [address] Sep, [facility] [place] [facility] [address] [id number] [place] [address] Sep, [facility] [place] [facility] [address] [id number] [place] [address]- [address] Sep, [facility] [place] [facility] [address] [id number] [place] [address] Sep, [facility] [place] [facility] [address] [id number] [place] [address] August, [facility] [place] [facility] [address] [id number] [place] [address] August, [facility] [place] [facility] [address] [id number] [place] [address] Jul, [facility] [place] [facility] [address] [id number] [place] [address] Jul, [facility] [place] [facility] [address] [id number] [place] [address] Jul, [facility] [place] [facility] [address] [id number] [place] [address] Jul, [facility] [place] [facility] [address] [id number] [place] [address] Jul, [facility] [place] [facility] [address] [id number] [place] [address] Jul, [facility] [place] [facility] [address] [id number] [place] [address] Jul, [facility] [place] [facility] [address] [id number] [place] [address]- [address] Jul, [facility] [place] [facility] [address] [id number] [place] [address] Jul, [facility] [place] [facility] [address] [id number] [place] [address] Jul, [facility] [place] [facility] [address] [id number] [place] [address] Jun, [facility] [place] [facility] [address] [id number] [place] [address] Jun, [facility] [place] [facility] [address] [id number] [place] [address] Jun, [facility] [place] [facility] [address] [id number] [place] [address] Jun, [facility] [place] [facility] [address] [id number] [place] [address] May, [facility] [place] [facility] [address] [id number] [place] [address] May, [facility] [place] [facility] [address] [id number] [place] [address] May, [facility] [place] [facility] [address] [id number] [place] [address] May, [facility] [place] [facility] [address] [id number] [place] [address] May, [facility] [place] [facility] [address] [id number] [place] [address] 10 May, 2013 [facility] [place] [facility] [address] [id number] [place] [address] 16 Mar, 2013 [facility] [place] [facility] [address] [id number] [place] [address] 16 Mar, 2012 [facility] [place] [facility] [address] [id number] [place] [address]69 16 Mar, 2013 [facility] [place] [facility] [address] [id number] [place] [address] 16 Mar, 2013 [facility] [place] [facility] [address] [id number] [place] [address] Mar, [facility] [place] [facility] [address] [id number] [place] [address] Mar, [facility] [place] [facility] [address] [id number] [place] [address] 8869 Feb, [facility] [place] [facility] [address] [id number] [place] [address] Feb, [facility] [place] [facility] [address] [id number] [place] [address] Feb, [facility] [place] [facility] [address] [id number] [place] [address] Feb, [facility] [place] [facility] [address] [id number] [place] [address] Feb, [facility] [place] [facility] [address] [id number] [place] [address]246 Feb, [facility] [place] [facility] [address] [id number] [place] [address] Feb, [facility] [place] [facility] [address] [id number] [place] [address] 34[address] Feb, [facility] [place] [facility] [address] [id number] [place] [address] 5817 18 Jan, 2012 [facility] [place] [facility] [address] [id number] [place] [address]- [address] 18 Jan, 2012 [facility] [place] [facility] [address] [id number] [place] [address]25 17 Jan, 2012 [facility] [place] [facility] [address] [id number] [place] [address]- 0045 16 Jan, 2012 [facility] [place] [facility] [address] [id number] [place] [address]348 16 Jan, 2012 [facility] [place] [facility] [address] [id number] [place] [address]- 8810 14 Jan, 2012 [facility] [place] [facility] [address] [id number] [place] [address] 8534 14 Jan, 2012 [facility] [place] [facility] [address] [id number] [place] [address]63 11 Jan, 2013 [facility] [place] [facility] [address] [id number] [place] [address] 11 Jan, 2013 [facility] [place] [facility] [address] [id number] [place] [address] 0394 10 Jan, 2013 [facility] [place] [facility] [address] [id number] [place] [address] 5924 27 Dec, 2012 [facility] [place] [facility] [address] [id number] [place] [address] 5635 18 Dec, 2012 [facility] [place] [facility] [address] [id number] [address] 18 Dec, 2012 [facility] [place] [facility] [address] [id number] [place] [address] 3037 30 Nov, 2012 [facility] [place] [facility] [address] [id number] [place] [address]- 5685 29 Nov, 2012 [facility] [place] [facility] [address] [id number] [place] [address]21 Nov, [facility] [place] [facility] [address] [id number] [place] [address] Nov, [facility] [address] [id number] [place] [address] Nov, [facility] [place] [facility] [address] [id number] [place] [address] 1447 Nov, [facility] [address] [id number] [place] [address] Nov, [facility] [place] [facility] [address] [id number] [place] [address] 4779 Nov, [facility] [address] [id number] [place] [address] 7249 Nov, [facility] [address] [id number] [place] [address] 8540 Nov, [facility] [address] [id number] [place] [address] 1415 Oct, [facility] [address] [id number] [place] [address] Oct, [facility] [place] [facility] [address] [id number] [place] [address] 8459 Oct, [facility] [address] [id number] [place] [address] 1575 Oct, [facility] [place] [facility] [address] [id number] [place] [address] 9771 Oct, [facility] [place] [facility] [address] [id number] [place] [address] 9693 Oct, [facility] [place] [facility] [address] [id number] [place] [address]- 2421 Oct, [facility] [place] [facility] [address] [id number] [place] [address] 3386 Oct, [facility] [place] [facility] [address] [id number] [place] [address]19 Sep, [facility] [address] [id number] [place] [address]- 2218 Sep, [facility] [address] [id number] [place] [address]- 1092 Sep, [facility] [address] [id number] [place] [address] 1353 Sep, [facility] [address] [id number] [place] [address] 1741 August, [facility] [address] [id number] [place] [address] 5563 August, [facility] [address] [id number] [place] [address] 2719 August, [facility] [address] [id number] Jul, [facility] [address] [id number] Jul, [facility] [address] [id number] [place] [address] 9229 Jun, [facility] [address] [id number] [place] [address] 1419 May, [facility] [address] [id number] [place] [address]- 8786 May, [facility] [address] [id number] [place] [address]- 0296 Apr, [facility] [place] [facility] [address] [id number] [place] [address] 5239 Feb, [facility] [place] [facility] [address] [id number] [place] [address] 4175 Feb, [facility] [place] [facility] [address] [id number] [place] [address]- 3498 Jan, [facility] [place] [facility] [address] [id number] [place] [address]- 9286 Jan, [facility] [place] [facility] [address] [id number] [place] [address]- 5676 Jan, [facility] [address] [id number] [place] [address]- 8256 Jan, [facility] [place] [facility] [address] [facility] [id number] [place] [address]- 2546 Jan, [facility] [address] [id number] [place] [address]- 2546 Dec, [facility] [address] [facility] [id number] [place] [address]- 2546 Dec, [facility] [address] [facility] [id number] [place] [id number] Nov, [facility] [address] [facility] [id number] [place] [address]- 7466 Nov, [facility] [place] [facility] [address] [id number] [place] [address]- 2935 Nov, [facility] [id number] [place] [address]- [address]84 Nov, [facility] [place] [facility] [address] [id number] [place] [address]- 4326 August, [facility] [address] [facility] [id number] [place] [address]- 6236 August, [facility] [place] [facility] [address] [id number] [place] [address]- 9356 August, [facility] [place] [facility] [address] [facility] [id number] [place] [address]- 2546 Jul, [facility] [place] [facility] [address] [id number] [place] [address]- 2806 May, [facility] [place] [facility] [address] [facility] [id number] [place] [address]- 2546 May, [facility] [place] [facility] [address] [id number] [place] [address]- 6856 May, [facility] [address] [id number] [address] Mar, [facility] [id number], [place] [address] 3746 Jan, [facility] [address] [id number], [place] [address] 2046 Jan, [facility] [id number], [place] [address] 6897 Oct, [facility] [id number], [place] [address] 1832 August, [facility] [id number] [place] [address]136 Jan, [facility] [id number], [place] [address]- 1036 Jan, [facility] [id number], [place] [address]- 3126 Jan, [facility] [address] [id number], [place] [address] 5862 Jan, IMMUNIZATIONS No Known Immunizations SOCIAL HISTORY Never Assessed REASON FOR VISIT medication change PLAN OF CARE VITAL SIGNS MEDICATIONS Medication Instructions Dosage Frequency Start Date End Date Duration Status Risperdal 1 MG Orally twice a day 1 tablet 12h 10 Jan, 2018 90 days Active RESULTS No Results PROCEDURES No Known procedures INSTRUCTIONS MEDICATIONS ADMINISTERED No Known Medications MEDICAL (GENERAL) HISTORY Type Description Date Medical History hypertension Medical History insomnia Medical History hepatitis C (hx of IVDU)-dx'd 2003 (Harvoni x12 week Apr- July 2015) Medical History hx of alcohol and other polysubstance abuse (Meth) Medical History mood disorder Medical History sleep apnea Medical History obsessive-compulsive personality disorder Medical History depression Medical History anxiety Medical History hx of hypomagnesemia, hypercalcemia, hypokalemia Medical History acute renal failure Medical History coronary artery disease Surgical History heart cath-started to be stented but vessel opened up 09/2009 Surgical History abscess removed from left lower leg 2013 Hospitalization History Acute renal failure 03/2014 Hospitalization History Low b/p and heart rate, sweating 12/2014
--- OUTSIDE RECORDS SUMMARY | 2018-02-08 21:12 | XMS REPORT ---
Author Author ROSIO IRBY Organization [facility] Address [address] [place] [address] Care Team Providers Care Summer Nanny Name Role Phone ROSIO IRBY Unavailable PROBLEMS Type Condition ICD9-CM Code ZEG13-HZ Code Onset Dates Condition Status SNOMED Code Problem History of alcohol abuse Z87.898 Active 330915109 Problem Allergic rhinitis, unspecified allergic rhinitis type J30.9 Active 32770281 Problem Chronic hepatitis C without hepatic coma B18.2 Active 971235248 Problem Mood disorder F39 Active 23027553 Problem Other chronic pain G89.29 Active 52264547 Problem Mild episode of recurrent major depressive disorder F33.0 Active 907271670 Problem Obsessive compulsive disorder F42 Active 771490194 Problem Hyperammonemia E72.20 Active 9358740 Problem Generalized anxiety disorder F41.1 Active 45049901 Problem Hypertension, benign I10 Active 60045694 ALLERGIES No Information ENCOUNTERS Encounter Location Date Diagnosis [place] [id number] [place] [address] 83601- 9774 Jan, Mood disorder F39 [facility] [id number] [place] [address] 63598- 6680 Jan, Chronic hepatitis C without hepatic coma B18.2 [facility] [id number] [place] [address] 67145- 4250 Dec, Mild episode of recurrent major depressive disorder F33.0 ; Other chronic pain G89.29 ; Pain in left shoulder M25.512 and Pain in right shoulder M25.511 [facility] [id number] [place] [address] 53980- 7992 Dec, Chronic hepatitis C without hepatic coma B18.2 [place] [id number] [place] [address] 95654- 0940 Nov, Chronic hepatitis C without hepatic coma B18.2 [facility] [address], [place] [address] 7086 Oct, Bronchitis J40 [facility] [id number] [place] [address] 01890- 3596 10 Oct, 2017 Chronic hepatitis C without hepatic coma B18.2 and Cough R05 [facility] [id number] [place] [address] 93978- 1416 Sep, Chronic hepatitis C without hepatic coma B18.2 [facility] [id number] [place] [address] 51790- 1070 August, Chronic hepatitis C without hepatic coma B18.2 [facility] [id number] [place] [address] 92219- 2116 Jul, Chronic hepatitis C without hepatic coma B18.2 [facility] [id number] [place] [address] 38388- 8206 Jul, Generalized anxiety disorder F41.1 ; Mood disorder F39 and History of hepatitis C Z86.19 [facility] [id number] [place] [address] 09115- 6990 Jul, Chronic hepatitis C without hepatic coma B18.2 [facility] [address] [place] [address]- 2934 Jun, Chronic hepatitis C without hepatic coma B18.2 [facility] [address], [place] [address]- 7505 Jun, [facility] [id number] [place] [address] 01657- 2687 May, Chronic hepatitis C without hepatic coma B18.2 [facility] [id number] [place] [address] 72595- 9954 May, Hypertension, benign I10 [facility] [id number] [place] [address] 71265- 4707 Apr, Chronic hepatitis C without hepatic coma B18.2 [facility] [id number] [place] [address] 22688- 0378 Apr, Hypertension, benign I10 [facility] [id number] [place] [address] 72102- 7731 Mar, Chronic hepatitis C without hepatic coma B18.2 [facility] [address] 08692- 3693 Mar, Hypertension, benign I10 [place] [address] 35549- 8634 Mar, Hypertension, benign I10 ; Encounter for immunization Z23 and Strain of right Achilles tendon, initial encounter S86.011A [place] [id number] [place] [address] 34767- 4286 Feb, Chronic hepatitis C without hepatic coma B18.2 [place] [address] 57222- 1269 Jan, Chronic hepatitis C without hepatic coma B18.2 [facility] [address] 24768 -7161 Jan, Toe pain, right M79.674 and Cellulitis of foot, right L03.115 [facility] [id number] [place] [address] 87659- 6168 Dec, Chronic hepatitis C without hepatic coma B18.2 [facility] [id number] [place] [address] 21149- 6416 Nov, Chronic hepatitis C without hepatic coma B18.2 and Eczema of both hands L30.9 [place] [address] 41742- 3750 Nov, [facility] [id number] [place] [address] 96311- 1187 Oct, [facility] [address] 39116- 4875 Sep, [facility] [id number] [place] [address]- 2361 August, [facility] [address] 4423 August, [facility] [id number] [place] [address]- 3860 Jul, [facility] [address] 0834 Jul, [facility] [address], [place] [address]- 4617 Jun, [facility] [address] 3168 Jun, [facility] [address], [place] [address]- 6347 May, [facility] [address], [place] [address]- 0650 Apr, Chronic hepatitis C without hepatic coma B18.2 ; Hyperglycemia R73.9 and Hypertension, benign I10 [facility] [address], [place] [address]- 6890 Apr, Chronic hepatitis C without hepatic coma B18.2 ; Mood disorder F39 ; Hypertension, benign I10 and Hyperglycemia R73.9 [facility] [address], [place] [address]- 3658 Apr, [facility] [address], [place] [address]- 0612 Apr, [facility] [address], [place] [address]- 8772 Apr, [facility] [address], [place] [address]- 1464 Feb, [facility] [address], [place] [address]- 9880 Feb, [facility] [id number] [place] [address] 79972- 4069 Feb, [facility] [id number] [place] [address] 69859- 5538 Feb, [facility] [id number] [place] [address] 61603- 0778 Jan, [facility] [address] 87657- 9804 Jan, Chronic hepatitis C without hepatic coma B18.2 ; Mood disorder F39 ; Encounter for immunization Z23 and Chronic viral hepatitis C B18.2 [facility] [id number] [place] [address] 94741- 5777 Jan, [facility] [id number] [place] [address] 13778- 3770 Jan, [facility] [id number] [place] [address] 22497- 7057 Dec, [facility] [id number] [place] [address] 79226- 3510 Dec, [facility] [id number] [place] [address] 30475- 4620 Nov, [facility] [id number] [place] [address] 98794- 8230 Nov, Weakness of both legs M62.81 [facility] [id number] [place] [address] 51742- 2798 Nov, [facility] [id number] [place] [address] 04560- 6431 Nov, [facility] [id number] [place] [address] 61880- 4812 Nov, [facility] [id number] [place] [address] 36552- 7426 Nov, Eczema, unspecified type L30.9 [facility] [address], [place] [address]- 6743 Nov, [facility] [id number] [place] [address] 38839- 1509 Nov, Eczema, unspecified type L30.9 ; Cessation of tobacco use in previous 12 months Z87.891 and Weakness of both legs M62.81 [facility] [id number] [place] [address] 61993- 0880 Oct, [facility] [id number] [place] [address] 04924- 0790 Oct, [facility] [id number] [place] [address] 84322- 6409 Oct, [place] [id number] [place] [address] 64319- 8596 Oct, Chronic viral hepatitis C B18.2 [place] [id number] [place] [address] 66979- 8965 Sep, [place] [id number] [place] [address] 67458- 0023 Sep, 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 and Generalized anxiety disorder F41.1 [place] [id number] [place] [address] 92733- 0058 Sep, [facility] [id number] [place] [address] 35163- 0471 August, [facility] [id number] [place] [address] 59242- 4775 August, Hyperammonemia E72.20 [place] [id number] [place] [address] 83275- 2205 August, Hyperammonemia E72.20 [place] [address], [place] [address]- 7341 August, Hyperammonemia E72.20 and Chronic hepatitis C without hepatic coma B18.2 [facility] [id number] [place] [address] 2546 August, Chronic viral hepatitis C B18.2 [facility] [id number] [place] [address] 2546 August, [facility] [id number] [place] [address] 2546 Jul, Chronic viral hepatitis C B18.2 and Hyperammonemia E72.20 [facility] [id number] [place] [address] 2546 Jul, Chronic viral hepatitis C B18.2 [facility] [id number] [place] [address] 2546 Jul, [facility] [address], [place] [address] 2546 Jul, [facility] [address], [place] [address] 2546 28 Jun, 2015 [facility] [address], [place] [address] 2546 23 Jun, 2015 Chronic viral hepatitis C B18.2 and Hyperammonemia E72.20 [facility] [address], [place] [address] 2546 Jun, [facility] [address], [place] [address] 2546 18 Jun, 2015 [facility] [id number], [place] [address] 2546 16 Jun, 2015 Chronic viral hepatitis C B18.2 [facility] [id number] [place] [address] 2546 10 Jun, 2015 [facility] [address], [place] [address] 2546 07 Jun, 2015 Chronic viral hepatitis C B18.2 [facility] [id number] [place] [address] 26414- 1352 17 May, 2015 Hepatitis C, chronic B18.2 and Chronic viral hepatitis C B18.2 [facility] [id number] [place] [address] 17177- 8520 15 May, 2015 [facility] [id number] [place] [address] 81160- 2724 Apr, [facility] [id number] [place] [address] 06674- 9511 Apr, Chronic viral hepatitis C B18.2 and Hyperammonemia E72.20 [facility] [id number] [place] [address] 77485- 4901 Apr, Chronic viral hepatitis C B18.2 [facility] [id number] [place] [address] 75873- 5879 Apr, Hyperammonemia E72.20 [facility] [id number] [place] [address] 45363- 5731 Apr, [facility] [id number] [place] [address] 15547- 7815 Apr, [facility] [id number] [place] [address] 74464- 3965 Apr, Chronic hepatitis C without hepatic coma B18.2 ; Hyperammonemia E72.20 and Chronic viral hepatitis C B18.2 [place] [id number] [place] [address] 52332- 8994 Mar, Shortness of breath R06.02 [facility] [id number] [place] [address] 77760- 1607 Mar, Mood disorder F39 and Major depressive disorder, recurrent episode, unspecified 296.30 [facility] [id number] [place] [address] 35938- 0853 Mar, [facility] [id number] [place] [address] 86345- 0496 Mar, [facility] [id number] [place] [address] 38309- 8220 Mar, [facility] [id number] [place] [address] 92077 -6905 Mar, Seasonal allergies J30.2 ; Shortness of breath R06.02 and Cough R05 [facility] [address] 26949- 4957 Mar, Hyperammonemia E72.20 ; Mood disorder F39 and History of alcohol abuse Z87.898 [facility] [address] 07628- 6787 Mar, Hyperammonemia E72.20 [facility] [address] 48885- 8280 Mar, [facility] [address] 56833- 7609 Feb, [facility] [id number] [place] [address] 11361- 1957 Feb, [facility] [address] 51036- 5098 Feb, Hyperammonemia E72.20 [facility] [id number] [place] [address] 35657- 2348 Feb, [facility] [id number] [place] [address] 85163- 9492 Feb, [facility] [id number] [place] [address] 75548- 2049 Feb, [facility] [address] 17437- 3003 Feb, [facility] [id number] [place] [address] 40703- 8719 Feb, Chronic viral hepatitis C B18.2 [facility] [id number] [address]- 7447 Feb, Chronic viral hepatitis C B18.2 [facility] [id number] [place] [address] 30645- 2666 Feb, [facility] [id number] [place] [address] 36512- 8426 Feb, Chronic viral hepatitis C B18.2 and Confusion R41.0 [facility] [id number] [place] [address] 24333- 9973 Feb, [facility] [id number] [place] [address] 02628- 4066 Jan, [facility] [id number] [place] [address] 06723- 2874 Jan, Confusion R41.0 [facility] [id number] [place] [address] 79210- 3722 Jan, [facility] [id number] [place] [address] 36854- 3100 Jan, [facility] [id number] [place] [address] 90718- 3186 Jan, [facility] [id number] [place] [address] 69157- 8577 Jan, [facility] [id number] [place] [address] 61246- 8547 Jan, Chronic viral hepatitis C B18.2 and 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 [facility] [id number] [place] [address]- 9462 Jan, [facility] [id number] [place] [address] 07100- 254 Jan, [facility] [address], [place] [address]- 9336 Jan, [facility] [id number] [place] [address] 49411- 7544 Jan, [facility] [id number] [place] [address] 26387- 4308 Jan, Chronic viral hepatitis C B18.2 [facility] [address] 70569- 4365 16 Jan, 2015 [facility] [address] 64051- 1337 14 Jan, 2015 Back pain at L4-L5 level M54.5 and Confusion R41.0 [facility] [address] 62075- 8302 Jan, [facility] [address] 10643- 6764 30 Dec, 2014 Chronic viral hepatitis C B18.2 and Flu vaccine need V04.81 [facility] [address] 57455- 5632 30 Dec, 2014 Chronic viral hepatitis C B18.2 [place] [id number] [place] [address] 89377- 1833 28 Dec, 2014 [facility] [address] 46920- 5298 22 Dec, 2014 Polyuria 788.42 [place] [address] 13981- 6382 Dec, Polyuria 788.42 ; Polydipsia 783.5 ; Dizziness 780.4 and Hepatitis C, chronic 070.54 [facility] [id number] [place] [address] 98180- 3341 10 Dec, 2014 Major depressive disorder, recurrent episode, unspecified 296.30 and Generalized anxiety disorder 300.02 [facility] [id number] [place] [address] 96685- 2431 Nov, [facility] [address] 37049- 7835 Nov, [facility] [address], [place] [address]- 1966 Nov, [facility] [id number] [place] [address] 19621- 1386 Oct, [facility] [address], [place] [address]- 5106 Sep, [facility] [id number] [place] [address] 28710- 9746 August, Obsessive-compulsive disorders 300.3 ; Generalized anxiety disorder 300.02 and Major depressive disorder, recurrent episode, unspecified 296.30 [facility] [id number] [place] [address] 66469- 4186 August, Chronic hepatitis C without mention of hepatic coma 070.54 ; Hypertension 401.9 and Seasonal allergies 477.9 [facility] [id number] [place] [address] 26284- 7026 Jul, [facility] [address], [place] [address]- 7866 Jul, [facility] [id number] [place] [address] 84200- 7276 Jun, [facility] [address], [place] [address]- 5486 Jun, [facility] [address], [place] [address]- 2546 May, [facility] [address], [place] [address]- 2546 May, [facility] [address], [place] [address]- 2546 May, [facility] [address], [place] [address]- 2546 May, [facility] [id number] [place] [address] 92790- 4721 Apr, [facility] [place] [facility] [address] [id number] [place] [address]- 8555 Apr, [facility] [place] [facility] [address] [id number] [place] [address]- 6440 Apr, [facility] [place] [facility] [address] [id number] [place] [address]- 1238 Apr, [facility] [place] [facility] [address] [id number] [place] [address]- 1429 Apr, [facility] [place] [facility] [address] [id number] [place] [address]- 3811 Apr, [facility] [place] [facility] [address] [id number] [place] [address]- 2909 Mar, [facility] [place] [facility] [address] [id number] [place] [address]- 0364 Mar, [facility] [place] [facility] [address] [id number] [place] [address]- 8448 Mar, [facility] [place] [facility] [address] [id number] [place] [address]- 9166 Mar, [facility] [place] [facility] [address] [id number] [place] [address]- 8962 Mar, [facility] [place] [facility] [address] [id number] [place] [address]- 9620 Mar, [facility] [place] [facility] [address] [id number] [place] [address]- 2789 Mar, [facility] [place] [facility] [address] [id number] [place] 5202 Mar, [facility] [place] [facility] [address] [id number] [place] [address]- 6800 Mar, [facility] [place] [facility] [address] [id number] [place] [address]- 5199 Feb, [facility] [place] [facility] [address] [id number] [place] [address]- 0087 Feb, [facility] [place] [facility] [address] [id number] [place] [address]- 7523 Feb, [facility] [place] [facility] [address] [id number] [place] [address]- 6306 Feb, [facility] [place] [facility] [address] [id number] [place] [address]- 3607 Feb, [facility] [place] [facility] [address] [id number] [place] [address]- 1039 Jan, [facility] [place] [facility] [address] [id number] [place] [address]- 2852 Jan, [facility] [place] [facility] [address] [id number] [place] [address]- 3628 Jan, [facility] [place] [facility] [address] [id number] [place] [address]- 0530 Jan, [facility] [place] [facility] [address] [id number] [place] [address]- 3778 Jan, [facility] [place] [facility] [address] [id number] [place] [address]- 8578 Jan, [facility] [place] [facility] [address] [id number] [place] [address]- 9485 Jan, [facility] [place] [facility] [address] [id number] [place] [address]- 4384 Jan, [facility] [place] [facility] [address] [id number] [place] [address] Jan, [facility] [place] [facility] [address] [id number] [place] [address] Nov, [facility] [place] [facility] [address] [id number] [place] [address] Nov, [facility] [place] [facility] [address] [id number] [place] [address] Nov, [facility] [place] [facility] [address] [id number] [place] [address] Oct, [facility] [place] [facility] [address] [id number] [place] [address] Oct, [facility] [place] [facility] [address] [id number] [place] [address] Oct, [facility] [place] [facility] [address] [id number] [place] [address] Oct, [facility] [place] [facility] [address] [id number] [place] [address] Sep, [facility] [place] [facility] [address] [id number] [place] [address] Sep, [facility] [place] [facility] [address] [id number] [place] [address] Sep, [facility] [place] [facility] [address] [id number] [place] [address] Sep, [facility] [place] [facility] [address] [id number] [place] [address] Sep, [facility] [place] [facility] [address] [id number] [place] [address] Sep, [facility] [place] [facility] [address] [id number] [place] [address] August, [facility] [place] [facility] [address] [id number] [place] [address] August, [facility] [place] [facility] [address] [id number] [place] [address] Jul, [facility] [place] [facility] [address] [id number] [place] [address] Jul, [facility] [place] [facility] [address] [address] [id number] [place] [address] Jul, [facility] [place] [facility] [address] [id number] [place] [address] Jul, [facility] [place] [facility] [address] [id number] [place] [address] Jul, [facility] [place] [facility] [address] [id number] [place] [address] Jul, [facility] [place] [facility] [address] [facility] [id number] [place] [address] Jul, [facility] [place] [facility] [address] [id number] [place] [address] Jul, [facility] [place] [facility] [address] [id number] [place] [address] Jul, [facility] [place] [facility] [address] [id number] [place] [address] Jul, [facility] [place] [facility] [address] [id number] [place] [address] Jun, [facility] [place] [facility] [address] [id number] [place] [address] Jun, [facility] [place] [facility] [address] [id number] [place] [address] Jun, [facility] [place] [facility] [address] [id number] [place] [address] Jun, [facility] [place] [facility] [address] [id number] [place] [address] 86[address] May, [facility] [place] [facility] [address] [id number] [place] [address] May, [facility] [place] [facility] [address] [id number] [place] [address]52 May, [facility] [place] [facility] [address] [id number] [place] [address]135 May, [facility] [place] [facility] [address] [id number] [place] [address] 7020 May, [facility] [place] [facility] [address] [id number] [place] [address]- 2798 10 May, 2013 [facility] [place] [facility] [address] [id number] [place] [address]45 16 Mar, 2013 [facility] [place] [facility] [address] [id number] [place] [address] 16 Mar, 2013 [facility] [place] [facility] [address] [id number] [place] [address]- 1610 16 Mar, 2013 [facility] [place] [facility] [address] [id number] [place] [address]- 6638 16 Mar, 2013 [facility] [place] [facility] [address] [id number] [place] [address] 39[address] Mar, [facility] [place] [facility] [address] [id number] [place] [address] 4[address] Mar, [facility] [place] [facility] [address] [id number] [place] [address] 4[address] Feb, [facility] [place] [facility] [address] [id number] [place] [address] Feb, [facility] [place] [facility] [address] [id number] [place] [address] 77[address] Feb, [facility] [place] [facility] [address] [id number] [place] [address] Feb, [facility] [place] [facility] [address] [id number] [place] [address] 65[address] Feb, [facility] [place] [facility] [address] [id number] [place] [address] 1281 Feb, [facility] [place] [facility] [address] [id number] [place] [address]- [address] 07 Feb, 2013 [facility] [place] [facility] [address] [id number] [place] [address]- [address] 07 Feb, 2013 [facility] [place] [facility] [address] [id number] [place] [address]- [address]85 18 Jan, 2012 [facility] [place] [facility] [address] [id number] [place] [address] 4278 18 Jan, 2012 [facility] [place] [facility] [address] [id number] [place] [address]- 9985 17 Jan, 2012 [facility] [place] [facility] [address] [id number] [place] [address] 8385 16 Jan, 2012 [facility] [place] [facility] [address] [id number] [place] [address]- 6043 16 Jan, 2012 [facility] [place] [facility] [address] [id number] [place] [address] 24[address] 14 Jan, 2013 [facility] [place] [facility] [address] [id number] [place] [address]- 8810 14 Jan, 2012 [facility] [place] [facility] [address] [id number] [place] [address]- 4760 11 Jan, 2013 [facility] [place] [facility] [address] [id number], [place] [address] 11 Jan, 2013 [facility] [place] [facility] [address] [id number] [place] [address]- 7176 10 Jan, 2013 [facility] [place] [facility] [address] [id number] [place] [address]- 9910 27 Dec, 2012 [facility] [place] [facility] [address] [id number], [place] [address] 18 Dec, 2012 [facility] [place] [facility] [address] [id number], [place] [address] 18 Dec, 2012 [facility] [place] [facility] [address] [id number] [place] [address]- 4743 30 Nov, 2012 [facility] [place] [facility] [address] [id number], [place] [address] 29 Nov, 2012 [facility] [place] [facility] [address] [id number] [place] [address]- 8077 Nov, [facility] [place] [facility] [address] [id number] [place] [address]- 9842 Nov, [facility] [place] [facility] [address] [id number] [place] [address]- 8150 Nov, [facility] [place] [facility] [address] [id number] [place] [address]12 Nov, [facility] [place] [facility] [address] [id number] [place] [address]- 8725 Nov, [facility] [place] [facility] [address] [id number] [place] [address]- 9018 Nov, [facility] [place] [facility] [address] [id number] [place] [address]- 1820 Nov, [facility] [place] [facility] [address] [id number] [place] [address]- 9023 Nov, [facility] [place] [facility] [address] [id number] [place] [address]- 3295 Oct, [facility] [place] [facility] [address] [id number] [place] [address]- 8134 Oct, [facility] [place] [facility] [address] [id number] [place] [address]- 0754 Oct, [facility] [place] [facility] [address] [id number] [place] [address]- 7896 Oct, [facility] [place] [facility] [address] [id number] [place] [address]- 9677 Oct, [facility] [place] [facility] [address] [id number] [place] [address]- 3436 Oct, [facility] [place] [facility] [address] [id number] [place] [address]- 8741 Oct, [facility] [place] [facility] [address] [id number] [place] [address] Oct, [facility] [place] [facility] [address] [id number] [place] [address]- 0468 Sep, [facility] [place] [facility] [address] [id number] [place] [address] Sep, [facility] [address] [id number] [place] [address]- 8974 Sep, [facility] [address] [id number] [place] [address]- 6490 Sep, [facility] [address] [id number] [place] [address]- 5741 August, [facility] [address] [id number] [place] [address]- 6530 August, [facility] [address] [id number] [place] [address]- 4892 August, [facility] [address] [place] [id number] Jul, [facility] [address] [facility] [id number] Jul, [facility] [address] [id number] [place] [address]- 3929 Jun, [facility] [address] [id number] [place] [address]- 2462 May, [facility] [address] [id number] [place] [address]- 5917 May, [facility] [address] [id number] [place] [address]- 9582 Apr, [facility] [address] [id number] [place] [address]- 1556 Feb, [facility] [place] [facility] [address] [id number] [place] [address]- 5722 Feb, [facility] [place] [facility] [address] [id number] [place] [address]- 6336 Jan, [facility] [place] [facility] [address] [id number] [place] [address]- 5321 Jan, [facility] [place] [facility] [address] [id number] [place] [address]- 9016 Jan, [facility] [address] [id number] [place] [address]- 2146 Jan, [facility] [address] [facility] [id number] [place] [address]- 2546 Jan, [facility] [address] [id number] [place] [address]- 5746 Dec, [facility] [address] [facility] [id number] [place] [address]- 8016 Dec, [facility] [address] [facility] [id number] [id number] Nov, [facility] [address] [id number] [place] [address]- 5[address] Nov, [facility] [address] [id number] [place] [address]- 3116 Nov, [facility] [address] [id number] [place] [address]- 5967 Nov, [facility] [address] [id number] [place] [address]- 4796 August, [facility] [address] [id number] [place] [address]- 3636 August, [facility] [place] [facility] [address] [id number] [place] [address]- 9316 August, [facility] [place] [facility] [address] [facility] [id number] [place] [address]- 2546 Jul, [facility] [place] [facility] [address] [id number] [place] [address]- 2726 May, [facility] [place] [facility] [address] [facility] [id number] [place] [address]- 1806 May, [facility] [place] [facility] [address] [id number] [place] [address]- 5376 May, [facility] [address] [id number] [address]26 Mar, [facility] [address], [place] [address]- 6866 Jan, [facility] [address] [id number], [place] [address] 6[address] Jan, [facility] [id number], [place] [address] Oct, [facility] [id number], [place] [address] 2281 August, [facility] [id number] [place] [address] Jan, [facility] [address], [place] [address]- 1346 Jan, [facility] [address], [place] [address]- 2406 Jan, [facility] [address] [id number], [place] [address]- 3521 Jan, IMMUNIZATIONS No Known Immunizations SOCIAL HISTORY Never Assessed REASON FOR VISIT Controlled Med Refill 01/14/18 PLAN OF CARE VITAL SIGNS MEDICATIONS Medication Instructions Dosage Frequency Start Date End Date Duration Status Xanax 2 MG Orally 4 times a day 1 tablet 6h Jun, 28 days Active RESULTS No Results PROCEDURES No [...]
--- OUTSIDE RECORDS SUMMARY | 2018-02-08 21:13 | XMS REPORT ---
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 Name Role Phone ROSIO IRBY Unavailable PROBLEMS Type Condition ICD9-CM Code KAP66-HS Code Onset Dates Condition Status SNOMED Code Problem History of alcohol abuse Z87.898 Active 852011187 Problem Allergic rhinitis, unspecified allergic rhinitis type J30.9 Active 35349600 Problem Chronic hepatitis C without hepatic coma B18.2 Active 608298831 Problem Mood disorder F39 Active 89262268 Problem Other chronic pain G89.29 Active 55876317 Problem Mild episode of recurrent major depressive disorder F33.0 Active 463350386 Problem Obsessive compulsive disorder F42 Active 541716719 Problem Hyperammonemia E72.20 Active 7107599 Problem Generalized anxiety disorder F41.1 Active 49774002 Problem Hypertension, benign I10 Active 75425932 ALLERGIES No Known Allergies ENCOUNTERS Encounter Location Date Diagnosis [facility] [id number] [place] [address] 66411- 6016 Jan, Chronic hepatitis C without hepatic coma B18.2 [facility] [address] [address] Dec, Mild episode of recurrent major depressive disorder F33.0 ; Other chronic pain G89.29 ; Pain in left shoulder M25.512 and Pain in right shoulder M25.511 [facility] [address] [address] 7064 Dec, Chronic hepatitis C without hepatic coma B18.2 [facility] [address] [address] 5867 Nov, Chronic hepatitis C without hepatic coma B18.2 [facility] [id number] [place] [address] 49206- 7374 Oct, Bronchitis J40 [facility] [id number] [address] 7788 10 Oct, 2017 Chronic hepatitis C without hepatic coma B18.2 and Cough R05 [facility] [id number] [address] 0936 Sep, Chronic hepatitis C without hepatic coma B18.2 [facility] [id number] [place] [address] 93844- 8060 August, Chronic hepatitis C without hepatic coma B18.2 [facility] [id number] [place] [address] 63427- 9856 Jul, Chronic hepatitis C without hepatic coma B18.2 [facility] [id number] [place] [address] 54586- 5291 Jul, Generalized anxiety disorder F41.1 ; Mood disorder F39 and History of hepatitis C Z86.19 [facility] [id number] [place] [address] 18438- 3487 Jul, Chronic hepatitis C without hepatic coma B18.2 [facility] [id number] [place] [address] 58537- 4228 Jun, Chronic hepatitis C without hepatic coma B18.2 [facility] [id number] [address]- 5[address] Jun, [facility] [id number] [place] [address] 19718- 0090 May, Chronic hepatitis C without hepatic coma B18.2 [facility] [id number] [place] [address] 04217- 2059 May, Hypertension, benign I10 [facility] [id number] [place] [address] 82465- 0306 Apr, Chronic hepatitis C without hepatic coma B18.2 [facility] [id number] [place] [address] 91686- 1390 Apr, Hypertension, benign I10 [facility] [id number] [place] [address] 26727- 9086 Mar, Chronic hepatitis C without hepatic coma B18.2 [facility] [id number] [place] [address] 33846- 6386 Mar, Hypertension, benign I10 [facility] [address] 54303- 9775 Mar, Hypertension, benign I10 ; Encounter for immunization Z23 and Strain of right Achilles tendon, initial encounter S86.[address]A [place] [address] 35677- 3632 Feb, Chronic hepatitis C without hepatic coma B18.2 [facility] [id number] [place] [address] 01105- 6950 Jan, Chronic hepatitis C without hepatic coma B18.2 [facility] [id number] [place] [address] 81071 -4267 Jan, Toe pain, right M79.674 and Cellulitis of foot, right L03.115 [place] [id number] [place] [address] 43721- 8058 Dec, Chronic hepatitis C without hepatic coma B18.2 [facility] [id number] [place] [address] 54148- 8020 Nov, Chronic hepatitis C without hepatic coma B18.2 and Eczema of both hands L30.9 [facility] [id number] [place] [address] 60979- 8830 Nov, [facility] [id number] [place] [address] 77429- 4023 Oct, [facility] [id number] [place] [address] 49855- 6518 Sep, [facility] [address] 02942- 4170 August, [facility] [id number] [address] August, [facility] [id number] [place] [address]- 2068 Jul, [facility] [id number] [place] [address]- 0570 Jul, [facility] [id number] [place] [address]- 2235 Jun, [facility] [id number] 6311 Jun, [facility] [id number] [place] [address]- 5322 May, [facility] [id number] [place] [address]- 0326 Apr, Chronic hepatitis C without hepatic coma B18.2 ; Hyperglycemia R73.9 and Hypertension, benign I10 [facility] [address] [place] [address]- 5609 Apr, Chronic hepatitis C without hepatic coma B18.2 ; Mood disorder F39 ; Hypertension, benign I10 and Hyperglycemia R73.9 [facility] [id number] [place] [address]- 5466 Apr, [facility] [id number] [place] [address]- 2288 Apr, [facility] [address] [facility] [id number] [place] [address]- 5835 Apr, [facility] [id number] 1192 Feb, [facility] [id number] [place] [address]- 8315 Feb, [facility] [id number] [place] [address]- 6726 Feb, [facility] [id number], [place] [address]- 3017 Feb, [facility] [id number] [place] [address] 57110- 0210 Jan, [facility] [id number] [place] [address] 89179- 6780 Jan, Chronic hepatitis C without hepatic coma B18.2 ; Mood disorder F39 ; Encounter for immunization Z23 and Chronic viral hepatitis C B18.2 [facility] [id number] [place] [address] 88782- 0667 Jan, [facility] [id number] [place] [address] 55204- 3803 Jan, [facility] [id number] [place] [address] 46792- 3975 Dec, [facility] [id number] [place] [address] 28061- 4546 Dec, [facility] [id number] [place] [address] 83541- 3878 Nov, [facility] [id number] [place] [address] 89850- 2054 Nov, Weakness of both legs M62.81 [facility] [address], [place] [address]- 3790 Nov, [facility] [id number], [place] [address]- 5111 Nov, [facility] [id number], [place] [address]- 4113 Nov, [facility] [id number] [place] [address] 70176- 7747 Nov, Eczema, unspecified type L30.9 [facility] [id number] [place] [address] 82511- 4655 Nov, [facility] [address] [address]- 5638 Nov, Eczema, unspecified type L30.9 ; Cessation of tobacco use in previous 12 months Z87.891 and Weakness of both legs M62.81 [facility] [id number] [place] [address] 02881- 7584 Oct, [facility] [id number] [place] [address] 55255- 5150 Oct, [facility] [id number] [place] [address] 91963- 7876 Oct, [place] [id number] [place] [address] 34089- 7484 Oct, Chronic viral hepatitis C B18.2 [place] [id number] [place] [address] 02273- 9408 Sep, [place] [id number] [place] [address] 64002- 3610 Sep, 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 and Generalized anxiety disorder F41.1 [place] [id number] [place] [address] 85772- 5759 Sep, [place] [id number] [place] [address] 96566- 2291 August, [place] [id number] [place] [address] 60954- 7714 August, Hyperammonemia E72.20 [place] [id number] [place] [address] 79168- 8831 August, Hyperammonemia E72.20 [place] [id number] [place] [address] 95429- 9115 August, Hyperammonemia E72.20 and Chronic hepatitis C without hepatic coma B18.2 [place] [id number] [place] [address] 54719- 9285 August, Chronic viral hepatitis C B18.2 [facility] [id number] [place] [address]- 8116 August, [facility] [address], [place] [address]- 3073 Jul, Chronic viral hepatitis C B18.2 and Hyperammonemia E72.20 [facility] [id number] [place] [address]- 9094 Jul, Chronic viral hepatitis C B18.2 [facility] [id number] [place] [address]- 9672 Jul, [facility] [id number] [place] [address]- 7554 Jul, [facility] [address], [place] [address]- 8796 Jun, [facility] [id number], [place] [address]- 6262 Jun, Chronic viral hepatitis C B18.2 and Hyperammonemia E72.20 [facility] [id number] [place] [address]- 1414 Jun, [facility] [address], [place] [address]- 5378 Jun, [facility] [address], [place] [address]- 1491 16 Jun, 2015 Chronic viral hepatitis C B18.2 [facility] [id number] [place] [address]- 0320 Jun, [facility] [address] [address]- 0295 07 Jun, 2015 Chronic viral hepatitis C B18.2 [facility] [address], [place] [address]- 4697 17 May, 2015 Hepatitis C, chronic B18.2 and Chronic viral hepatitis C B18.2 [facility] [address], [place] [address]- 6138 15 May, 2015 [facility] [id number] [place] [address] 07499- 2988 Apr, [facility] [id number] [place] [address] 24074- 4174 Apr, Chronic viral hepatitis C B18.2 and Hyperammonemia E72.20 [facility] [id number] [place] [address] 38603- 8067 Apr, Chronic viral hepatitis C B18.2 [facility] [id number] [place] [address] 92560- 4741 Apr, Hyperammonemia E72.20 [facility] [id number] [place] [address] 58772- 4150 Apr, [facility] [id number] [place] [address] 49521- 4046 Apr, [facility] [id number] [place] [address] 10512- 4232 Apr, Chronic hepatitis C without hepatic coma B18.2 ; Hyperammonemia E72.20 and Chronic viral hepatitis C B18.2 [place] [id number] [place] [address] 69103- 9808 Mar, Shortness of breath R06.02 [facility] [id number] [place] [address] 48817- 1029 31 Mar, 2015 Mood disorder F39 and Major depressive disorder, recurrent episode, unspecified 296.30 [facility] [id number] [place] [address] 32665- 0602 Mar, [facility] [id number] [place] [address] 13295- 3046 18 Mar, 2015 [facility] [id number] [place] [address] 78345- 7626 Mar, [facility] [id number] [place] [address] 11098 -4275 Mar, Seasonal allergies J30.2 ; Shortness of breath R06.02 and Cough R05 [facility] [id number] [place] [address] 04723- 0044 Mar, Hyperammonemia E72.20 ; Mood disorder F39 and History of alcohol abuse Z87.898 [facility] [id number] [place] [address] 68539- 6725 Mar, Hyperammonemia E72.20 [facility] [address] 65905- 2084 Mar, [facility] [id number] [place] [address] 01113- 8720 Feb, [facility] [address] 32303- 5158 Feb, [facility] [id number] [place] [address] 07292- 8247 Feb, Hyperammonemia E72.20 [facility] [id number] [place] [address] 06508- 6840 Feb, [facility] [id number] [place] [address] 73625- 2832 Feb, [facility] [id number] [place] [address] 12594- 6338 Feb, [facility] [id number] [place] [address] 48940- 7236 Feb, [facility] [address] 70886- 5070 Feb, Chronic viral hepatitis C B18.2 [facility] [id number] [place] [address] 22267- 3593 Feb, Chronic viral hepatitis C B18.2 [facility] [address] [facility] [id number] [address]- 3240 Feb, [facility] [address] [facility] [id number] [place] [address] 52146- 3350 Feb, Chronic viral hepatitis C B18.2 and Confusion R41.0 [facility] [address] [facility] [id number] [place] [address] 52687- 8460 Feb, [facility] [address] [facility] [id number] [place] [address] 12484- 5671 Jan, [facility] [address] [facility] [id number] [place] [address] 11546- 2919 Jan, Confusion R41.0 [facility] [id number] [place] [address] 94335- 8771 Jan, [facility] [id number] [place] [address] 19156- 3968 Jan, [facility] [id number] [place] [address] 34482- 9324 Jan, [facility] [id number] [place] [address] 33309- 6886 Jan, [facility] [id number] [place] [address] 42326- 9103 Jan, Chronic viral hepatitis C B18.2 and 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 [facility] [id number] [place] [address] 03109- 2035 Jan, [facility] [address] [facility] [id number] [place] [address] 28177- 5109 Jan, [facility] [address] [facility] [id number] [place] [address] 31022- 6109 Jan, [facility] [id number] [address]- 9081 Jan, [facility] [id number] [place] [address] 34689- 4965 Jan, Chronic viral hepatitis C B18.2 [place] [id number] [place] [address] 34714- 0355 16 Jan, 2015 [place] [address] 20962- 7080 Jan, Back pain at L4-L5 level M54.5 and Confusion R41.0 [place] [address] 17313- 8849 Jan, [place] [address] [address] 30 Dec, 2014 Chronic viral hepatitis C B18.2 and Flu vaccine need V04.[address] [address] 30 Dec, 2014 Chronic viral hepatitis C B18.2 [place] [address] [address]- [address] 28 Dec, 2014 [place] [address] [address] 22 Dec, 2014 Polyuria [address] [address]- [address] Dec, Polyuria 788.42 ; Polydipsia 783.5 ; Dizziness 780.4 and Hepatitis C, chronic 070.54 [place] [address] [place] [id number] [place] [address]- 1330 10 Dec, 2014 Major depressive disorder, recurrent episode, unspecified 296.30 and Generalized anxiety disorder 300.[address] [address] Nov, [place] [address] [place] [id number] [place] [address]- [address] Nov, [place] [address] [address] Nov, [facility] [id number] [address] Oct, [facility] [id number] [place] [address]- [address] Sep, [facility] [id number] [place] [address] August, Obsessive-compulsive disorders 300.3 ; Generalized anxiety disorder 300.02 and Major depressive disorder, recurrent episode, unspecified 296.30 [facility] [id number] [place] [address] August, Chronic hepatitis C without mention of hepatic coma 070.54 ; Hypertension 401.9 and Seasonal allergies 477.9 [facility] [id number] [place] [address] Jul, [facility] [address] [place] [id number] [place] [address]- [address] Jul, [facility] [id number] [place] [address] Jun, [facility] [id number] [address] Jun, [facility] [id number] [place] [address] May, [facility] [id number] [place] [address] May, [facility] [id number] [place] [address] May, [facility] [id number] [address] May, [facility] [id number] [address] Apr, [facility] [id number] [address] Apr, [facility] [place] [facility] [address] [id number] [place] [address] Apr, [facility] [place] [facility] [address] [id number] [place] [address] Apr, [facility] [place] [facility] [address] [id number] [place] [address] Apr, [facility] [place] [facility] [address] [id number] [place] [address] 98[address] Apr, [facility] [place] [facility] [address] [id number] [place] [address] 1427 Mar, [facility] [place] [facility] [address] [id number] [place] [address]22 Mar, [facility] [place] [facility] [address] [id number] [place] [address]- 8325 Mar, [facility] [place] [facility] [address] [id number] [place] [address] 8589 Mar, [facility] [place] [facility] [address] [id number] [place] [address] 2520 Mar, [facility] [place] [facility] [address] [id number] [place] [address]- 9648 Mar, [facility] [place] [facility] [address] [id number] [place] [address]- 7643 Mar, [facility] [place] [facility] [address] [id number] [place] [address]- 7147 Mar, [facility] [place] [facility] [address] [id number] [place] [address] Mar, [facility] [place] [facility] [address] [id number] [place] [address]- 9435 Feb, [facility] [place] [facility] [address] [id number] [place] [address]- 9857 Feb, [facility] [place] [facility] [address] [id number] [address] Feb, [facility] [place] [facility] [address] [id number] [place] [address]- 5948 Feb, [facility] [place] [facility] [address] [id number] [place] [address]- 5121 Feb, [facility] [place] [facility] [address] [id number] [place] [address]- 3355 Jan, [facility] [place] [facility] [address] [id number] [place] [address]- 2992 Jan, [facility] [place] [facility] [address] [id number] [place] [address]- 6930 Jan, [facility] [place] [facility] [address] [id number] [place] [address]- 3366 Jan, [facility] [place] [facility] [address] [id number] [place] [address]- 5097 Jan, [facility] [place] [facility] [address] [id number] [place] [address]- 7835 Jan, [facility] [place] [facility] [address] [facility] [id number] [place] [address]- 0976 Jan, [facility] [place] [facility] [address] [facility] [id number] [place] [address]- 0377 Jan, [facility] [place] [facility] [address] [id number] [place] [address]- 9946 Jan, [facility] [place] [facility] [address] [id number] [place] [address]- 6143 Nov, [facility] [place] [facility] [address] [id number] [place] [address]- 1220 Nov, [facility] [place] [facility] [address] [facility] [id number] [place] [address]- 1065 Nov, [facility] [place] [facility] [address] [facility] [id number] [place] [address]- 4483 Oct, [facility] [place] [facility] [address] [id number] [place] [address]- 9967 Oct, [facility] [place] [facility] [address] [id number] [place] [address]- 9244 Oct, [facility] [place] [facility] [address] [id number] [place] [address]- 6065 Oct, [facility] [place] [facility] [address] [id number] [place] [address]- 0096 Sep, [facility] [place] [facility] [address] [id number] [place] [address]- 9438 Sep, [facility] [place] [facility] [address] [id number] [place] [address]- 0926 Sep, [facility] [place] [facility] [address] [id number] [place] [address]- 6384 Sep, [facility] [place] [facility] [address] [id number] [place] [address]- 2389 Sep, [facility] [place] [facility] [address] [id number] [place] [address]- 0153 Sep, [facility] [place] [facility] [address] [id number] [place] [address]- 5943 August, [facility] [place] [facility] [address] [id number] [place] [address]- 2560 August, [facility] [place] [facility] [address] [id number] [place] [address]- 8353 Jul, [facility] [place] [facility] [address] [id number] [place] [address]- 8786 Jul, [facility] [place] [facility] [address] [id number] [place] [address]- 2264 Jul, [facility] [place] [facility] [address] [id number] [place] [address]- 8559 Jul, [facility] [place] [facility] [address] [id number] [place] [address]- 3287 Jul, [facility] [place] [facility] [address] [id number] [place] [address]- 9848 Jul, [facility] [place] [facility] [address] [id number] [place] [address]- 1081 Jul, [facility] [place] [facility] [address] [id number] [place] [address]- 4129 Jul, [facility] [place] [facility] [address] [id number] [place] [address]- 2909 Jul, [facility] [place] [facility] [address] [id number] [place] [address]- 6647 Jul, [facility] [place] [facility] [address] [id number] [place] [address]- 8467 Jun, [facility] [place] [facility] [address] [id number] [place] [address]- 6916 Jun, [facility] [place] [facility] [address] [id number] [place] [address]- 8553 Jun, [facility] [place] [facility] [address] [id number] [place] [address]- 3325 Jun, [facility] [place] [facility] [address] [id number] [place] [address]- 2976 May, [facility] [place] [facility] [address] [id number] [place] [address]- 0290 May, [facility] [place] [facility] [address] [id number] [place] [address]- 5675 May, [facility] [place] [facility] [address] [id number] [place] [address]- 1116 May, [facility] [place] [facility] [address] [id number] [place] [address]- 5530 May, [facility] [place] [facility] [address] [id number] [place] [address]- 3371 May, [facility] [place] [facility] [address] [id number] [place] [address]- 5561 16 Mar, 2013 [facility] [address] [id number] [place] [address]- 6254 16 Mar, 2013 [facility] [place] [facility] [address] [id number] [place] [address]- 7646 16 Mar, 2013 [facility] [address] [id number] [place] [address]- 3140 16 Mar, 2013 [facility] [place] [facility] [address] [id number] [place] [address]- 8072 16 Mar, 2013 [facility] [address] [id number] [place] [address]- 7902 16 Mar, 2013 [facility] [address] [id number] [place] [address]- 8430 23 Feb, 2013 [facility] [place] [facility] [address] [id number] [place] [address]- 5181 Feb, [facility] [address] [id number] [place] [address]- 1821 Feb, [facility] [place] [facility] [address] [id number] [place] [address]- 5892 Feb, [facility] [address] [id number] [place] [address]- 4859 Feb, [facility] [place] [facility] [address] [id number] [place] [address]- 6783 Feb, [facility] [place] [facility] [address] [id number] [place] [address]- 9581 07 Feb, 2013 [facility] [place] [facility] [address] [id number] [place] [address]- 6247 07 Feb, 2013 [facility] [place] [facility] [address] [id number] [place] [address]- 9266 18 Jan, 2013 [facility] [place] [facility] [address] [id number] [place] [address]- 1398 Jan, [facility] [place] [facility] [address] [id number] [place] [address]- 2694 17 Jan, 2013 [facility] [place] [facility] [address] [id number] [place] [address]- 5802 16 Jan, 2013 [facility] [place] [facility] [address] [id number] [place] [address]- 1944 16 Jan, 2013 [facility] [place] [facility] [address] [id number] [place] [address]- 6066 14 Jan, 2013 [facility] [place] [facility] [address] [id number] [place] [address]- 1091 14 Jan, 2013 [facility] [place] [facility] [address] [id number] [place] [address]- 3992 11 Jan, 2013 [facility] [place] [facility] [address] [id number] [place] [address]- 3652 11 Jan, 2013 [facility] [place] [facility] [address] [id number] [place] [address]- 2643 10 Jan, 2013 [facility] [place] [facility] [address] [id number] [place] [address]- 3247 27 Dec, 2012 [facility] [place] [facility] [address] [id number] [place] [address]- 0880 18 Dec, 2012 [facility] [place] [facility] [address] [id number] [place] [address]- 1757 18 Dec, 2012 [facility] [place] [facility] [address] [id number], [place] [address]- 9632 30 Nov, 2012 [facility] [place] [facility] [address] [id number] [place] [address]- 9377 29 Nov, 2012 [facility] [place] [facility] [address] [id number] [place] [address]- 7007 28 Nov, 2012 [facility] [place] [facility] [address] [id number] [place] [address]- 0512 Nov, [facility] [place] [facility] [address] [id number] [place] [address]- 3688 Nov, [facility] [place] [facility] [address] [id number] [place] [address]- 0156 Nov, [facility] [place] [facility] [address] [id number] [place] [address]- 0323 Nov, [facility] [place] [facility] [address] [id number] [place] [address]- 4266 Nov, [facility] [place] [facility] [address] [id number] [place] [address]- 8358 Nov, [facility] [place] [facility] [address] [id number] [place] [address]- 0130 Nov, [facility] [place] [facility] [address] [id number] [place] [address]- 0283 Oct, [facility] [place] [facility] [address] [id number] [place] [address]- 9354 Oct, [facility] [place] [facility] [address] [id number] [place] [address]- 6398 Oct, [facility] [place] [facility] [address] [id number] [place] [address]- 2981 Oct, [facility] [place] [facility] [address] [id number] [place] [address]- 0500 Oct, [facility] [place] [facility] [address] [id number] [place] [address]- 5733 Oct, [facility] [place] [facility] [address] [id number] [place] [address]- 6570 Oct, [facility] [place] [facility] [address] [id number] [place] [address]- 5925 Oct, [facility] [place] [facility] [address] [id number] [place] [address]- 4608 Sep, [facility] [place] [facility] [address] [id number] [place] [address]- 0987 Sep, [facility] [place] [facility] [address] [id number] [place] [address]- 9224 Sep, [facility] [address] [id number] [place] [address]- 5533 Sep, [facility] [place] [facility] [address] [id number] [place] [address]- 0122 August, [facility] [address] [id number] [place] [address]- 2981 August, [facility] [address] [id number] [place] [address]- 2447 August, [facility] [address] [id number] Jul, [facility] [address] [facility] [place] [id number] Jul, [facility] [address] [id number] [place] [address]- 8554 Jun, [facility] [address] [id number] [place] [address]- 3766 May, [facility] [address] [id number] [place] [address]- 8379 May, [facility] [address] [id number] [place] [address]- 4727 Apr, [facility] [address] [id number] [place] [address]- 0262 Feb, [facility] [place] [facility] [address] [id number] [place] [address]- 9931 Feb, [facility] [place] [facility] [address] [id number] [place] [address]- 5033 Jan, [facility] [place] [facility] [address] [id number] [place] [address]- 7255 Jan, [facility] [place] [facility] [address] [id number] [place] [address]- 6044 Jan, [facility] [address] [id number] [place] [address]- 2816 Jan, [facility] [address] [id number] [place] [address]- 1466 Jan, [facility] [address] [id number] [place] [address]- 2546 Dec, [facility] [address] [id number] [place] [address] 2546 Dec, [facility] [address] [id number] [id number] Nov, [facility] [address] [id number] [place] [address]- 1036 Nov, [facility] [place] [facility] [address] [id number] [place] [address]- 2916 Nov, [facility] [address] [id number] [place] [address]- 1421 Nov, [facility] [address] [id number] [place] [address]- 9926 August, [facility] [address] [id number] [place] [address]- 6270 August, [facility] [address] [id number] [place] [address]- 5876 August, [facility] [address] [id number] [place] [address]- 5936 Jul, [facility] [place] [facility] [address] [id number] [place] [address]- 1466 May, [facility] [place] [facility] [address] [id number] [place] [address]- 4856 May, [facility] [place] [facility] [address] [id number] [place] [address]- 2606 May, [facility] [place] [facility] [address] [id number], [place] [address]- 2616 Mar, [facility] [address] [id number] [address]12 Jan, [facility] [id number] [place] [address] 5360 Jan, [facility] [id number] [address]- 2995 Oct, [facility] [id number] [address]- 7217 August, [facility] [id number] [address]- 9161 Jan, [facility] [id number] [address]- 9950 Jan, [facility] [id number] [address]- 9504 Jan, [facility] [id number] [address]- 5598 Jan, IMMUNIZATIONS No Known Immunizations SOCIAL HISTORY Never Assessed REASON FOR VISIT Adrian -Mor ARMENDARIZ PLAN OF CARE VITAL SIGNS Height 72 in 2018-01-01 Weight 234.8 lbs 2018-01-01 Temperature 97.5 degrees Fahrenheit 2018-01-01 Heart Rate 66 bpm 2018-01-01 Respiratory Rate 20 2018-01-01 Oximetry 98 % 2018-01-01 BMI 31.84 kg/m2 2018-01-01 Blood pressure systolic 126 mmHg 2018-01-01 Blood pressure diastolic 78 mmHg 2018-01-01 MEDICATIONS Medication Instructions Dosage Frequency Start Date End Date Duration Status Triamcinolone Acetonide 0.1 % Externally Twice a day 1 application to affected area 12h 11 Nov, 2015 Active Xanax 2 MG Orally 4 times a day 1 tablet 6h 25 Jun, 2014 28 days Active Pepcid 20 mg Orally Once a day 1 tablet at bedtime 24h Jul, 30 day(s) Active Lexapro 20 mg Orally Once a day 1 tablet 24h Active Gabapentin 600 MG Orally 3 times a day 1 tablet 8h Active Aspirin 81 MG Orally Once a day 1 tablet 24h 12 May, 2012 Active Meloxicam 7.5 mg Orally 2 times a day 1 tablet 12h 21 Dec, 2017 Apr, 30 day(s) Active Propranolol HCl 40 MG TAKE 1 TABLET THREE TIMES DAILY 90 Active Tessalon Perles 100 mg Orally Three times a day 1 capsule as needed 8h 12 Oct, 2017 Active Mirtazapine 15 MG TAKE 1 TABLET AT BEDTIME 90 Active Centrum Adults Active Lisinopril-Hydrochlorothiazide 20-25 MG Orally Once a day 1 tablet 24h Mar, Active Cetirizine HCl 10 mg Orally Once a day 1 tablet 24h Jul, Jan, 30 day(s) Active Ketoconazole 2 % Externally no more than twice a day 1 application to affected area Nov, Active Potassium Chloride ER 10 MEQ TAKE 1 CAPSULE EVERY DAY 90 Active Albuterol Sulfate HFA 108 (90 Base) MCG/ACT Inhalation every 4 hrs 2 puffs as needed 4h Mar, Active Abilify 2 MG Orally Once a day 1 tablet 24h 21 Dec, 2017 30 day(s) Active RESULTS No Results PROCEDURES Procedure Date Ordered Result Body Site [facility] VISIT ESTABLISHED PATIENT Jan 01, 2018 INSTRUCTIONS MEDICATIONS ADMINISTERED No Known Medications MEDICAL [...]
--- OUTSIDE RECORDS SUMMARY | 2018-02-08 21:14 | XMS REPORT ---
Author Author ROSIO IRBY Organization [facility] Address [address] [place] [address] Care Team Providers Care Compensation And Benefits Advisor Name Role Phone ROSIO IRBY Unavailable PROBLEMS Type Condition ICD9-CM Code CSP89-SF Code Onset Dates Condition Status SNOMED Code Problem History of alcohol abuse Z87.898 Active 822784163 Problem Allergic rhinitis, unspecified allergic rhinitis type J30.9 Active 04748255 Problem Chronic hepatitis C without hepatic coma B18.2 Active 711006275 Problem Mood disorder F39 Active 28640034 Problem Other chronic pain G89.29 Active 42070331 Problem Mild episode of recurrent major depressive disorder F33.0 Active 380826671 Problem Obsessive compulsive disorder F42 Active 147038713 Problem Hyperammonemia E72.20 Active 6340898 Problem Generalized anxiety disorder F41.1 Active 45413417 Problem Hypertension, benign I10 Active 53535952 ALLERGIES No Information ENCOUNTERS Encounter Location Date Diagnosis [place] [id number] [place] [address] 58719- 7336 Dec, Mild episode of recurrent major depressive disorder F33.0 ; Other chronic pain G89.29 ; Pain in left shoulder M25.512 and Pain in right shoulder M25.511 [facility] [id number] [place] [address] 49387- 4746 Dec, Chronic hepatitis C without hepatic coma B18.2 [facility] [id number] [place] [address] 63873- 3609 Nov, Chronic hepatitis C without hepatic coma B18.2 [facility] [id number] [place] [address] 36744- 4538 Oct, Bronchitis J40 [facility] [id number] [place] [address] 90879- 9258 Oct, Chronic hepatitis C without hepatic coma B18.2 and Cough R05 [facility] [address], [place] [address] 6826 Sep, Chronic hepatitis C without hepatic coma B18.2 [facility] [id number] [address] 6706 August, Chronic hepatitis C without hepatic coma B18.2 [facility] [id number] [place] [address] 99407 2546 Jul, Chronic hepatitis C without hepatic coma B18.2 [facility] [id number] [place] [address] 84955- 1916 Jul, Generalized anxiety disorder F41.1 ; Mood disorder F39 and History of hepatitis C Z86.19 [facility] [id number], [place] [address]- 3546 Jul, Chronic hepatitis C without hepatic coma B18.2 [facility] [id number] [place] [address] 84913- 8456 Jun, Chronic hepatitis C without hepatic coma B18.2 [facility] [address], [place] [address] 3726 Jun, [facility] [address], [place] [address]- 1436 May, Chronic hepatitis C without hepatic coma B18.2 [facility] [address], [place] [address]- 6096 May, Hypertension, benign I10 [facility] [address], [place] [address]- 6166 Apr, Chronic hepatitis C without hepatic coma B18.2 [facility] [address] 9706 Apr, Hypertension, benign I10 [facility] [address], [place] [address]- 8346 Mar, Chronic hepatitis C without hepatic coma B18.2 [facility] [id number] [place] [address] 96171- 4727 Mar, Hypertension, benign I10 [facility] [id number] [place] [address] 49894- 2417 Mar, Hypertension, benign I10 ; Encounter for immunization Z23 and Strain of right Achilles tendon, initial encounter S86.011A [facility] [id number] [place] [address] 52539- 4741 Feb, Chronic hepatitis C without hepatic coma B18.2 [facility] [id number] [place] [address] 05105- 9970 Jan, Chronic hepatitis C without hepatic coma B18.2 [facility] [id number] [place] [address] 69437 -4209 Jan, Toe pain, right M79.674 and Cellulitis of foot, right L03.115 [facility] [id number] [place] [address] 01340- 2790 Dec, Chronic hepatitis C without hepatic coma B18.2 [facility] [id number] [place] [address] 26097- 9130 Nov, Chronic hepatitis C without hepatic coma B18.2 and Eczema of both hands L30.9 [facility] [id number] [place] [address] 16900- 5057 Nov, [facility] [id number] [place] [address] 94689- 8020 Oct, [facility] [id number] [place] [address] 73119- 7825 Sep, [facility] [id number] [place] [address] 93910- 2260 August, [facility] [id number] [place] [address] 88411- 9004 August, [facility] [address], [place] [address]- 7372 Jul, [facility] [id number] [address]- 0460 Jul, [facility] [id number] [place] [address]- 2373 Jun, [facility] [address], [place] [address]- 2554 Jun, [facility] [address], [place] [address]- 9069 May, [facility] [id number] [place] [address], [place] [address]- 6362 Apr, Chronic hepatitis C without hepatic coma B18.2 ; Hyperglycemia R73.9 and Hypertension, benign I10 [facility] [address], [place] [address]- 2296 Apr, Chronic hepatitis C without hepatic coma B18.2 ; Mood disorder F39 ; Hypertension, benign I10 and Hyperglycemia R73.9 [facility] [address] [address]- 2325 Apr, [facility] [id number] [address]- 6719 Apr, [facility] [address], [place] [address]- 9699 Apr, [facility] [address], [place] [address]- 8731 Feb, [facility] [address] [place] [address]- 0587 Feb, [facility] [address] [place] [address]- 8538 Feb, [facility] [id number] [address]- 3665 Feb, [facility] [id number] [place] [address] 41858- 2656 Jan, [facility] [id number] [place] [address] 97587- 4265 Jan, Chronic hepatitis C without hepatic coma B18.2 ; Mood disorder F39 ; Encounter for immunization Z23 and Chronic viral hepatitis C B18.2 [facility] [id number] [place] [address] 10574- 1587 Jan, [facility] [id number] [place] [address] 50238- 1194 Jan, [facility] [address] 41019- 7910 Dec, [facility] [id number] [place] [address] 54781- 3853 Dec, [facility] [id number] [place] [address] 61477- 0914 Nov, [facility] [id number] [place] [address] 32324- 4168 Nov, Weakness of both legs M62.81 [facility] [id number] [place] [address] 98975- 3156 Nov, [facility] [id number] [place] [address] 58317- 6536 Nov, [facility] [id number] [place] [address] 96137- 1112 Nov, [facility] [id number] [place] [address] 38821- 0085 Nov, Eczema, unspecified type L30.9 [facility] [id number] [place] [address] 96583- 4345 Nov, [facility] [id number] [place] [address] 55772- 5677 Nov, Eczema, unspecified type L30.9 ; Cessation of tobacco use in previous 12 months Z87.891 and Weakness of both legs M62.81 [facility] [id number], [place] [address]- 5052 Oct, [facility] [id number] [place] [address] 46929- 1393 Oct, [facility] [id number] [place] [address] 19506- 2074 Oct, [facility] [id number] [place] [address] 40783- 6332 Oct, Chronic viral hepatitis C B18.2 [place] [id number] [place] [address] 67770- 5487 Sep, [place] [id number] [place] [address] 18147- 3224 Sep, 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 and Generalized anxiety disorder F41.1 [facility] [id number] [place] [address] 70953- 2359 Sep, [facility] [id number] [place] [address] 21367- 3384 August, [facility] [id number] [place] [address] 68449- 1249 August, Hyperammonemia E72.20 [facility] [id number] [place] [address] 12260- 6337 August, Hyperammonemia E72.20 [facility] [id number] [place] [address] 75295- 6847 August, Hyperammonemia E72.20 and Chronic hepatitis C without hepatic coma B18.2 [facility] [id number] [place] [address] 19105- 6573 August, Chronic viral hepatitis C B18.2 [facility] [id number] [place] [address] 27427- 3202 August, [facility] [address] [address]- 6626 Jul, Chronic viral hepatitis C B18.2 and Hyperammonemia E72.20 [facility] [address] [address] 2546 Jul, Chronic viral hepatitis C B18.2 [facility] [id number] [address] 2546 Jul, [facility] [id number] [address] 2546 Jul, [facility] [id number] [place] [address]- 1776 28 Jun, 2015 [facility] [id number] [address]- 1831 Jun, Chronic viral hepatitis C B18.2 and Hyperammonemia E72.20 [facility] [address] [address]- 0356 Jun, [facility] [id number] [address]- 8736 18 Jun, 2015 [facility] [id number] [address]- 3166 16 Jun, 2015 Chronic viral hepatitis C B18.2 [facility] [id number] [address] 2546 10 Jun, 2015 [facility] [id number] [address]- 2546 07 Jun, 2015 Chronic viral hepatitis C B18.2 [facility] [id number] [address] 2546 17 May, 2015 Hepatitis C, chronic B18.2 and Chronic viral hepatitis C B18.2 [facility] [address] [address]- 8616 15 May, 2015 [facility] [id number] [place] [address] 39762- 8085 Apr, [facility] [address] 67879- 3605 Apr, Chronic viral hepatitis C B18.2 and Hyperammonemia E72.20 [facility] [id number] [place] [address] 10314- 5966 Apr, Chronic viral hepatitis C B18.2 [facility] [id number] [place] [address] 11508- 9097 Apr, Hyperammonemia E72.20 [facility] [address] 59047- 8917 Apr, [facility] [id number] [place] [address] 76579- 9001 Apr, [facility] [address] 89510- 4294 Apr, Chronic hepatitis C without hepatic coma B18.2 ; Hyperammonemia E72.20 and Chronic viral hepatitis C B18.2 [facility] [id number] [place] [address] 69691- 6659 Mar, Shortness of breath R06.02 [facility] [id number] [place] [address] 05118- 4586 Mar, Mood disorder F39 and Major depressive disorder, recurrent episode, unspecified 296.30 [facility] [id number] [place] [address] 35676- 9267 Mar, [facility] [id number] [place] [address] 84202- 8795 Mar, [facility] [id number] [place] [address] 91749- 1869 15 Mar, 2015 [facility] [id number] [place] [address] 02063 -9729 Mar, Seasonal allergies J30.2 ; Shortness of breath R06.02 and Cough R05 [facility] [id number] [place] [address] 32950- 9760 Mar, Hyperammonemia E72.20 ; Mood disorder F39 and History of alcohol abuse Z87.898 [facility] [id number] [place] [address] 73841- 7806 Mar, Hyperammonemia E72.20 [facility] [address] 37486- 7466 Mar, [facility] [id number] [place] [address] 92833- 2119 Feb, [facility] [id number] [place] [address] 36803- 5579 Feb, [facility] [id number] [place] [address] 28542- 4625 Feb, Hyperammonemia E72.20 [facility] [id number] [place] [address] 67763- 3565 Feb, [facility] [id number] [place] [address] 54666- 1806 Feb, [facility] [id number] [place] [address] 31734- 0736 Feb, [facility] [id number] [place] [address] 41655- 7747 Feb, [facility] [id number] [place] [address] 90987- 2540 Feb, Chronic viral hepatitis C B18.2 [facility] [id number] [place] [address] 24865- 4346 Feb, Chronic viral hepatitis C B18.2 [facility] [id number] [place] [address] 30864- 1876 Feb, [facility] [address] [address]- 2791 Feb, Chronic viral hepatitis C B18.2 and Confusion R41.0 [facility] [id number] [place] [address] 20022- 5413 Feb, [facility] [id number] [place] [address] 92551- 5240 Jan, [facility] [id number] [place] [address] 93676- 0294 Jan, Confusion R41.0 [facility] [id number] [place] [address] 89034- 6885 Jan, [facility] [id number] [place] [address] 41265- 8651 Jan, [facility] [id number] [place] [address] 29568- 1562 Jan, [facility] [id number] [place] [address] 61901- 2069 Jan, [facility] [id number] [place] [address] 13890- 1180 Jan, Chronic viral hepatitis C B18.2 and 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 [facility] [id number] [place] [address] 19282- 3946 Jan, [facility] [id number] [place] [address] 75588- 7865 Jan, [facility] [id number] [place] [address] 54517- 6880 Jan, [facility] [id number] [place] [address] 19381- 6519 Jan, [facility] [id number] [place] [address] 95511- 6781 Jan, Chronic viral hepatitis C B18.2 [facility] [id number] [place] [address] 88440- 3169 16 Jan, 2015 [facility] [id number] [place] [address] 18266- 4169 14 Jan, 2015 Back pain at L4-L5 level M54.5 and Confusion R41.0 [facility] [id number] [place] [address] 53986- 4288 14 Jan, 2015 [facility] [id number] [place] [address] 38338- 8684 30 Dec, 2014 Chronic viral hepatitis C B18.2 and Flu vaccine need V04.81 [facility] [id number] [place] [address] 90714- 0126 30 Dec, 2014 Chronic viral hepatitis C B18.2 [facility] [id number] [place] [address] 65515- 5936 28 Dec, 2014 [facility] [id number] [place] [address] 81728- 4373 22 Dec, 2014 Polyuria 788.42 [facility] [id number] [place] [address] 69930- 5782 21 Dec, 2014 Polyuria 788.42 ; Polydipsia 783.5 ; Dizziness 780.4 and Hepatitis C, chronic 070.54 [facility] [id number] [place] [address] 88062- 8126 10 Dec, 2014 Major depressive disorder, recurrent episode, unspecified 296.30 and Generalized anxiety disorder 300.02 [facility] [id number] [place] [address] 53330- 6266 Nov, [facility] [id number] [place] [address] 61981- 4227 Nov, [facility] [id number] [place] [address] 16199- 5979 Nov, [facility] [id number] [place] [address] 25651- 3806 Oct, [facility] [address] [address]- 9722 Sep, [facility] [address] 5372 August, Obsessive-compulsive disorders 300.3 ; Generalized anxiety disorder 300.02 and Major depressive disorder, recurrent episode, unspecified 296.30 [facility] [address], [place] [address]- 7959 August, Chronic hepatitis C without mention of hepatic coma 070.54 ; Hypertension 401.9 and Seasonal allergies 477.9 [facility] [address], [place] [address]- 6478 Jul, [facility] [id number] [place] [address] 05128- 9738 Jul, [facility] [id number] [address]- 8462 Jun, [facility] [address], [place] [address]- 5647 Jun, [facility] [address], [place] [address]- 7042 May, [facility] [address], [place] [address]- 7814 May, [facility] [address], [place] [address]- 8329 May, [facility] [address] [address]- 3765 May, [facility] [address], [place] [address]- 3417 Apr, [facility] [address] [address]- 1321 Apr, [facility] [address], [place] [address]- 6929 Apr, [facility] [id number] [address]- 5166 Apr, [facility] [address] [id number] [place] [address]- 6392 Apr, [facility] [place] [facility] [address] [id number] [place] [address]- 4426 Apr, [facility] [address] [id number] [place] [address]- 3795 Mar, [facility] [place] [facility] [address] [id number] [place] [address]- [address] Mar, [facility] [address] [id number] [id number] [address] Mar, [facility] [place] [facility] [address] [id number] [place] [address] Mar, [facility] [place] [facility] [address] [id number] [place] [address] Mar, [facility] [address] [id number] [place] [address] Mar, [facility] [place] [facility] [address] [id number] [place] [address] Mar, [facility] [address] [id number] [place] [address] Mar, [facility] [place] [facility] [address] [id number] [place] [address] Mar, [facility] [place] [facility] [address] [id number] [place] [address] Feb, [facility] [place] [facility] [address] [id number] [place] [address] Feb, [facility] [place] [facility] [address] [id number] [place] [address] Feb, [facility] [place] [facility] [address] [id number] [place] [address] Feb, [facility] [place] [facility] [address] [id number] [place] [address]- [address] Feb, [facility] [place] [facility] [address] [id number] [place] [address] Jan, [facility] [place] [facility] [address] [id number] [place] [address]- [address] Jan, [facility] [place] [facility] [address] [id number] [place] [address] Jan, [facility] [place] [facility] [address] [id number] [place] [address]- [address] Jan, [facility] [place] [facility] [address] [id number] [place] [address]- [address] Jan, [facility] [place] [facility] [address] [id number] [place] [address]- [address] Jan, [facility] [place] [facility] [address] [id number] [place] [address]- [address] Jan, [facility] [place] [facility] [address] [id number] [place] [address]- [address] Jan, [facility] [place] [facility] [address] [id number] [place] [address]- [address] Jan, [facility] [place] [facility] [address] [id number] [place] [address]- [address] Nov, [facility] [place] [facility] [address] [id number] [place] [address]- [address] Nov, [facility] [place] [facility] [address] [id number] [place] [address]- [address] Nov, [facility] [place] [facility] [address] [id number] [place] [address] Oct, [facility] [place] [facility] [address] [id number] [place] [address]- [address] Oct, [facility] [place] [facility] [address] [id number] [place] [address]- [address] Oct, [facility] [place] [facility] [address] [id number] [place] [address] Oct, [facility] [place] [facility] [address] [id number] [place] [address]- [address] Sep, [facility] [place] [facility] [address] [id number] [place] [address] Sep, [facility] [place] [facility] [address] [id number] [place] [address]- [address] Sep, [facility] [place] [facility] [address] [id number] [place] [address] Sep, [facility] [place] [facility] [address] [id number] [place] [address]- [address] Sep, [facility] [place] [facility] [address] [id number] [place] [address] Sep, [facility] [place] [facility] [address] [id number] [place] [address] August, [facility] [place] [facility] [address] [id number] [place] [address] August, [facility] [place] [facility] [address] [id number] [place] [address] Jul, [facility] [place] [facility] [address] [id number] [place] [address] Jul, [facility] [place] [facility] [address] [id number] [place] [address] Jul, [facility] [place] [facility] [address] [id number] [place] [address] Jul, [facility] [place] [facility] [address] [id number] [place] [address] Jul, [facility] [place] [facility] [address] [id number] [place] [address] Jul, [facility] [place] [facility] [address] [id number] [place] [address] Jul, [facility] [place] [facility] [address] [id number] [place] [address] Jul, [facility] [place] [facility] [address] [id number] [place] [address] Jul, [facility] [place] [facility] [address] [id number] [place] [address] Jul, [facility] [place] [facility] [address] [id number] [place] [address] Jun, [facility] [place] [facility] [address] [id number] [place] [address] Jun, [facility] [place] [facility] [address] [facility] [id number] [place] [address]- [address] Jun, [facility] [place] [facility] [address] [id number] [place] [address]- 70[address] Jun, [facility] [place] [facility] [address] [id number] [place] [address]- 9065 May, [facility] [place] [facility] [address] [facility] [id number] [place] [address]- [address] May, [facility] [place] [facility] [address] [facility] [id number] [place] [address]- [address] May, [facility] [place] [facility] [address] [id number], [place] [address] May, [facility] [place] [facility] [address] [id number] [place] [address]- 270[address] May, [facility] [place] [facility] [address] [id number] [place] [address]- [address] May, [facility] [place] [facility] [address] [facility] [id number] [place] [address] 8016 Mar, [facility] [place] [facility] [address] [id number], [place] [address] 16 Mar, 2013 [facility] [address] [id number] [place] [address]- 9142 16 Mar, 2013 [facility] [place] [facility] [address] [id number], [place] [address] 16 Mar, 2013 [facility] [place] [facility] [address] [facility] [id number] [place] [address]- 7693 16 Mar, 2013 [facility] [place] [facility] [address] [id number][place] [address]78 16 Mar, 2013 [facility] [place] [facility] [address] [id number] [place] [address]- [address] Feb, [facility] [place] [facility] [address] [id number] [place] [address]- 1536 Feb, [facility] [address] [facility] [id number], [place] [address] Feb, [facility] [place] [facility] [address] [facility] [id number], [place] [address] Feb, [facility] [place] [facility] [address] [facility] [id number], [place] [address] Feb, [facility] [place] [facility] [address] [facility] [id number], [place] [address] Feb, [facility] [place] [facility] [address] [facility] [id number], [place] [address]- 7967 07 Feb, 2013 [facility] [place] [facility] [address] [facility] [id number], [place] [address]- 45[address] 07 Feb, 2013 [facility] [place] [facility] [address] [id number], [place] [address] 18 Jan, 2013 [facility] [place] [facility] [address] [facility] [id number], [place] [address] 3657 18 Jan, 2013 [facility] [place] [facility] [address] [facility] [id number], [place] [address]- [address] 17 Jan, 2013 [facility] [place] [facility] [address] [id number] [place] [address]- 48[address] 16 Jan, 2013 [facility] [place] [facility] [address] [id number] [place] [address]- 2272 16 Jan, 2013 [facility] [place] [facility] [address] [id number] [place] [address]- 6496 14 Jan, 2013 [facility] [place] [facility] [address] [id number] [place] [address]- 7854 14 Jan, 2013 [facility] [place] [facility] [address] [id number] [place] [address]- 6780 11 Jan, 2013 [facility] [place] [facility] [address] [id number] [place] [address]- 0266 11 Jan, 2013 [facility] [place] [facility] [address] [id number] [place] [address]- 0604 10 Jan, 2013 [facility] [place] [facility] [address] [id number] [place] [address]- 3773 27 Dec, 2012 [facility] [place] [facility] [address] [id number] [place] [address]- 0364 18 Dec, 2012 [facility] [place] [facility] [address] [id number] [place] [address]- 3050 18 Dec, 2012 [facility] [place] [facility] [address] [id number] [place] [address]- 5795 30 Nov, 2012 [facility] [place] [facility] [address] [id number] [place] [address]- 8484 29 Nov, 2012 [facility] [place] [facility] [address] [id number] [place] [address]- 254 Nov, [facility] [place] [facility] [address] [id number] [place] [address]- 0931 Nov, [facility] [place] [facility] [address] [id number] [place] [address]- 4529 Nov, [facility] [place] [facility] [address] [id number] [place] [address]- 4641 Nov, [facility] [place] [facility] [address] [id number] [place] [address] Nov, [facility] [place] [facility] [address] [id number] [place] [address]- 6696 Nov, [facility] [place] [facility] [address] [id number] [place] [address]- 3715 Nov, [facility] [place] [facility] [address] [id number] [place] [address]- 5273 Nov, [facility] [place] [facility] [address] [id number] [place] [address]- 8924 Oct, [facility] [place] [facility] [address] [id number] [place] [address]- 9831 Oct, [facility] [place] [facility] [address] [id number] [place] [address]- 0935 Oct, [facility] [place] [facility] [address] [id number] [place] [address]- 6035 Oct, [facility] [place] [facility] [address] [id number] [place] [address]- 5543 Oct, [facility] [place] [facility] [address] [id number] [place] [address]- 0714 Oct, [facility] [place] [facility] [address] [id number] [place] [address]- 2984 Oct, [facility] [place] [facility] [address] [id number] [place] [address]- 2698 Oct, [facility] [place] [facility] [address] [id number] [place] [address]- 1768 Sep, [facility] [place] [facility] [address] [id number] [place] [address]- 0311 Sep, [facility] [place] [facility] [address] [id number] [place] [address]- 1561 Sep, [facility] [place] [facility] [address] [id number] [place] [address]- 5989 Sep, [facility] [address] [id number] [place] [address]- 8900 August, [facility] [address] [id number] [place] [address]- 8005 August, [facility] [address] [id number] [place] [address]- 4294 August, [facility] [address] [place] [id number] Jul, [facility] [address] [facility] [place] [id number] Jul, [facility] [address] [id number] [place] [address]- 7593 Jun, [facility] [address] [id number] [place] [address]- 7774 May, [facility] [address] [id number] [place] [address]- 9345 May, [facility] [address] [id number] [place] [address]- 1906 Apr, [facility] [address] [id number] [place] [address]- 5329 Feb, [facility] [place] [facility] [address] [id number] [place] [address]- 2738 Feb, [facility] [place] [facility] [address] [id number], [place] [address]- 5849 Jan, [facility] [place] [facility] [address] [id number] [place] [address]- 8505 Jan, [facility] [place] [facility] [address] [id number] [place] [address]- 3193 Jan, [facility] [place] [facility] [address] [id number] [place] [address]- 0444 Jan, [facility] [place] [facility] [address] [id number], [place] [address]- 5726 Jan, [facility] [place] [facility] [address] [id number] [place] [address]- 4145 Dec, [facility] [address] [id number] [place] [address]- 1777 Dec, [facility] [address] [id number] [id number] Nov, [facility] [address] [id number] [place] [address]- 4680 Nov, [facility] [place] [facility] [address] [id number] [place] [address]- 2318 Nov, [facility] [address] [id number] [place] [address]- 9359 Nov, [facility] [address] [id number], [place] [address]- 9799 August, [facility] [place] [facility] [address] [id number], [place] [address]- 0856 August, [facility] [place] [facility] [address] [id number] [place] [address]- 9289 August, [facility] [place] [facility] [address] [id number], [place] [address]- 2185 Jul, [facility] [place] [facility] [address] [id number], [place] [address]- 0548 May, [facility] [place] [facility] [address] [id number], [place] [address]- 9400 May, [facility] [place] [facility] [address] [id number] [place] [address]- 3348 May, [facility] [place] [facility] [address] [id number], [place] [address]- 4627 Mar, [facility] [place] [facility] [address] [id number], [place] [address]- 5193 Jan, [facility] [place] [facility] [address] [facility] [id number], [place] [address]- 8246 Jan, [facility] [address] [id number], [place] [address]- 9531 Oct, [facility] [address] [id number], [place] [address]- 4396 August, [facility] [address] [id number], [place] [address]- 0207 Jan, [facility] [address] [id number], [place] [address]- 6221 Jan, [facility] [address] [id number], [place] [address]- 5893 Jan, [facility] [address] [id number], [place] [address]- 4199 Jan, IMMUNIZATIONS No Known Immunizations SOCIAL HISTORY Never Assessed REASON FOR VISIT Controlled Med Refill 12/18/17 PLAN OF CARE VITAL SIGNS MEDICATIONS Medication [...] History hepatitis C (hx of IVDU)-dx'd 2003 (Angel x12 week Apr- July 2015) Medical History [...]
--- OUTSIDE RECORDS SUMMARY | 2018-02-08 21:15 | XMS REPORT ---
Author Author SAUD STEEL [facility] Address [address] [place] [address] Care Team Providers Care Public Health Representative Name Role Phone SAUD STEEL Unavailable PROBLEMS Type Condition ICD9-CM Code EZP57-PH Code Onset Dates Condition Status SNOMED Code Problem History of alcohol abuse Z87.898 Active 277445796 Problem Mood disorder F39 Active 86186751 Problem Generalized anxiety disorder F41.1 Active 93286978 Problem Hypertension, benign I10 Active 45823210 Problem Allergic rhinitis, unspecified allergic rhinitis type J30.9 Active 35670497 Problem Chronic hepatitis C without hepatic coma B18.2 Active 740439335 Problem Obsessive compulsive disorder F42 Active 127971992 Problem Hyperammonemia E72.20 Active 6479498 ALLERGIES No Known Allergies ENCOUNTERS Encounter Location Date Diagnosis [place] [id number] [address] Dec, [facility] [address] [address] Dec, Chronic hepatitis C without hepatic coma B18.2 [facility] [address] [place] [id number] [place] [address] 00664- 0609 Nov, Chronic hepatitis C without hepatic coma B18.2 [facility] [address] [place] [id number] [place] [address] 21556- 8858 Oct, Bronchitis J40 [facility] [address] [address]- 8368 Oct, Chronic hepatitis C without hepatic coma B18.2 and Cough R05 [facility] [address] [address]- 4058 Sep, Chronic hepatitis C without hepatic coma B18.2 [facility] [address] [address] 49[address] August, Chronic hepatitis C without hepatic coma B18.2 [facility] [address] [address] 0196 Jul, Chronic hepatitis C without hepatic coma B18.2 [facility] [address] [address] 55[address] Jul, Generalized anxiety disorder F41.1 ; Mood disorder F39 and History of hepatitis C Z86.19 [facility] [address] [address] 8[address] Jul, Chronic hepatitis C without hepatic coma B18.2 [facility] [address] [address]- 9400 Jun, Chronic hepatitis C without hepatic coma B18.2 [facility] [address] [address]- 9[address] Jun, [facility] [address] [address] 2886 May, Chronic hepatitis C without hepatic coma B18.2 [facility] [address] [address] 5[address] May, Hypertension, benign I10 [facility] [address] [address]- 6531 Apr, Chronic hepatitis C without hepatic coma B18.2 [facility] [address] [address]- 6[address] Apr, Hypertension, benign I10 [facility] [address] [address]- 0736 Mar, Chronic hepatitis C without hepatic coma B18.2 [facility] [address] [address] Mar, Hypertension, benign I10 [facility] [address] [place] [id number] [place] [address] 45974- 1442 Mar, Hypertension, benign I10 ; Encounter for immunization Z23 and Strain of right Achilles tendon, initial encounter S86.011A [facility] [address] [place] [id number] [place] [address] 16936- 6254 Feb, Chronic hepatitis C without hepatic coma B18.2 [facility] [address] [place] [id number] [place] [address] 98526- 8671 Jan, Chronic hepatitis C without hepatic coma B18.[address] [facility] [address] [place] [id number] [place] [address] 28576 -3728 Jan, Toe pain, right M79.674 and Cellulitis of foot, right L03.115 [facility] [address] [place] [id number] [place] [address] 78420- 8628 Dec, Chronic hepatitis C without hepatic coma B18.2 [facility] [address] [place] [id number] [place] [address] 19685- 4227 Nov, Chronic hepatitis C without hepatic coma B18.2 and Eczema of both hands L30.9 [facility] [address] [place] [id number] [place] [address] 12521- 8457 Nov, [facility] [id number] [place] [address] 89518- 5966 Oct, [facility] [address] [place] [id number] [place] [address] 21615- 1929 Sep, [facility] [address] [place] [id number] [place] [address] 46336- 7760 August, [facility] [address] [place] [id number] [place] [address] 98039- 3128 August, [facility] [address] [place] [id number] [place] [address] 15368- 3866 Jul, [facility] [address] [place] [id number] [place] [address] 20833- 6621 Jul, [facility] [address] [address]- 3102 Jun, [facility] [id number] [place] [address] 2546 Jun, [facility] [address] [address]- 1486 May, [facility] [address] [place] [id number] [place] [address] 65291- 4448 Apr, Chronic hepatitis C without hepatic coma B18.2 ; Hyperglycemia R73.9 and Hypertension, benign I10 [facility] [address] [place] [id number] [place] [address] 35176- 0058 Apr, Chronic hepatitis C without hepatic coma B18.2 ; Mood disorder F39 ; Hypertension, benign I10 and Hyperglycemia R73.9 [facility] [address] [address]- 8474 Apr, [facility] [address] [address]- 0076 Apr, [facility] [address] [address]- 2742 Apr, [facility] [address] [address]- 7808 Feb, [facility] [address] [address]- 4966 Feb, [facility] [address] [address] 2540 Feb, [facility] [address] [address]- 1936 Feb, [facility] [id number] [place] [address]- 4102 Jan, [facility] [address] [address]- 2468 20 Oct, 2016 Chronic hepatitis C without hepatic coma B18.2 ; Mood disorder F39 ; Encounter for immunization Z23 and Chronic viral hepatitis C B18.2 [facility] [address] [id number] [address]- 8393 Jan, [facility] [address] [address] [id number] [address]- 0815 Jan, [facility] [address] [place] [id number] [place] [address] 23966- 7609 Dec, [facility] [address] [place] [id number] [place] [address] 96315- 5612 Dec, [facility] [address] [place] [id number] [place] [address] 21608- 1664 Nov, [facility] [address] [place] [id number] [place] [address] 44292- 1817 Nov, Weakness of both legs M62.81 [facility] [address] [place] [id number] [place] [address] 84820- 2723 Nov, [facility] [address] [place] [id number] [place] [address] 54922- 1179 Nov, [facility] [address] [place] [id number] [place] [address] 42029- 2481 Nov, [facility] [address] [address]- 9131 Nov, Eczema, unspecified type L30.9 [facility] [address] [id number] [address]- 1196 Nov, [facility] [address] [address]- 3270 Nov, Eczema, unspecified type L30.9 ; Cessation of tobacco use in previous 12 months Z87.891 and Weakness of both legs M62.81 [facility] [address] [address]- 2896 Oct, [facility] [address] [address]- 4133 Oct, [facility] [address] [address]- 1519 Oct, [facility] [address] [address]- 6248 Oct, Chronic viral hepatitis C B18.2 [facility] [address] [place] [id number] [place] [address] 71092- 1062 Sep, [facility] [address] [place] [id number] [place] [address] 54131- 9526 Sep, 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 and Generalized anxiety disorder F41.1 [facility] [address] [address]- 3532 Sep, [facility] [address] [place] [id number] [place] [address] 76312- 9284 August, [facility] [id number] [address]- 1263 August, Hyperammonemia E72.20 [facility] [address] [place] [id number] [place] [address] 94028- 7980 August, Hyperammonemia E72.20 [facility] [address] [address]- 8468 August, Hyperammonemia E72.20 and Chronic hepatitis C without hepatic coma B18.2 [facility] [address] [address]- 7555 August, Chronic viral hepatitis C B18.2 [facility] [address] [address]- 5554 August, [facility] [address] [address]- 9323 Jul, Chronic viral hepatitis C B18.2 and Hyperammonemia E72.20 [facility] [address] [place] [id number] [place] [address]- 4516 13 Jul, 2015 Chronic viral hepatitis C B18.2 [facility] [id number] [place] [address]- 2046 13 Jul, 2015 [facility] [id number] [place] [address] 2546 04 Jul, 2015 [facility] [address] [place] [id number] [place] [address], [place] [address]- 1246 28 Jun, 2015 [facility] [id number] [place] [address], [place] [address] 2540 23 Jun, 2015 Chronic viral hepatitis C B18.2 and Hyperammonemia E72.20 [facility] [address] [place] [address]- 5566 21 Jun, 2015 [facility] [address] [place] [id number] [place] [address], [place] [address]- 4706 18 Jun, 2015 [facility] [id number] [place] [address]- 2453 16 Jun, 2015 Chronic viral hepatitis C B18.2 [facility] [id number] [place] [address]- 4602 10 Jun, 2015 [facility] [id number] [place] [address]- 8760 07 Jun, 2015 Chronic viral hepatitis C B18.2 [facility] [address] [address]- 2540 17 May, 2015 Hepatitis C, chronic B18.2 and Chronic viral hepatitis C B18.2 [facility] [id number] 3626 May, [facility] [id number] [address]- 3806 Apr, [facility] [address] [address]- 2543 Apr, Chronic viral hepatitis C B18.2 and Hyperammonemia E72.20 [facility] [address] [place] [id number] [place] [address] 42510- 3260 Apr, Chronic viral hepatitis C B18.2 [facility] [address] [place] [id number] [place] [address] 22741- 6047 Apr, Hyperammonemia E72.20 [facility] [address] 09981- 8840 Apr, [facility] [address] [place] [id number] [place] [address] 40470- 9841 Apr, [facility] [address] [place] [id number] [place] [address] 00086- 5194 Apr, Chronic hepatitis C without hepatic coma B18.2 ; Hyperammonemia E72.20 and Chronic viral hepatitis C B18.2 [place] [address] 40051- 3045 Mar, Shortness of breath R06.02 [place] [address] [place] [id number] [place] [address] 68503- 8760 Mar, Mood disorder F39 and Major depressive disorder, recurrent episode, unspecified 296.30 [facility] [address] [place] [id number] [place] [address] 15145- 7560 Mar, [facility] [address] [place] [id number] [place] [address] 86496- 8576 Mar, [facility] [address] [place] [id number] [place] [address] 37400- 6060 15 Mar, 2015 [facility] [address] [place] [id number] [place] [address] 26476 -0574 Mar, Seasonal allergies J30.2 ; Shortness of breath R06.02 and Cough R05 [facility] [address] [place] [id number] [place] [address] 08890- 7322 Mar, Hyperammonemia E72.20 ; Mood disorder F39 and History of alcohol abuse Z87.898 [facility] [address] [place] [id number] [place] [address] 93934- 6916 Mar, Hyperammonemia E72.20 [facility] [address] [place] [id number] [place] [address] 35261 2546 Mar, [facility] [address] [place] [id number] [place] [address] 00647- 5416 Feb, [facility] [address] [place] [id number] [place] [address] 73380- 3115 Feb, [facility] [address] [place] [id number] [place] [address] 95451- 9809 Feb, Hyperammonemia E72.20 [facility] [address] [place] [id number] [place] [address] 98414- 9915 Feb, [facility] [address] [place] [id number] [place] [address] 03103- 7741 Feb, [facility] [address] [place] [id number] [place] [address] 77331- 3111 Feb, [facility] [address] [place] [id number] [place] [address] 16169 2547 Feb, [facility] [address] [place] [id number] [place] [address] 92654- 7790 Feb, Chronic viral hepatitis C B18.2 [facility] [address] [place] [id number] [place] [address] 61069 2548 Feb, Chronic viral hepatitis C B18.2 [facility] [address] [place] [id number] [place] [address] 73214 2546 Feb, [facility] [address] [place] [id number] [place] [address] 74706 2544 Feb, Chronic viral hepatitis C B18.2 and Confusion R41.0 [facility] [address] [place] [id number] [place] [address] 78277- 9867 Feb, [facility] [address] [facility] [id number] [address]- 6390 Jan, [facility] [address] [facility]] [id number] [place] [address] 46141- 4086 Jan, Confusion R41.0 [facility] [address] [address]- 9002 Jan, [facility] [id number] [place] [address] 00100- 0174 Jan, [facility] [address] [place] [id number] [place] [address] 31799- 7029 Jan, [facility] [id number] [place] [address] 63309- 1201 Jan, [facility] [address] [id number] [place] [address] 04734- 2053 Jan, Chronic viral hepatitis C B18.2 and 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 [facility] [address] [address]- 0811 Jan, [facility] [id number] [place] [address] 92289- 9164 Jan, [facility] [address], [place] [address]- 5939 Jan, [facility] [place] [facility] [id number] [place] [address] 28466- 6826 Jan, [facility] [address], [place] [address]- 7299 Jan, Chronic viral hepatitis C B18.2 [facility] [address], [place] [address]- 8826 16 Jan, 2015 [facility] [address] [address]- 1909 14 Jan, 2015 Back pain at L4-L5 level M54.5 and Confusion R41.0 [facility] [address] [id number] [place] [address] 32878- 2894 14 Jan, 2015 [place] [address] 85228- 2366 30 Dec, 2014 Chronic viral hepatitis C B18.2 and Flu vaccine need V04.81 [place] [address] 82001- 1346 30 Dec, 2014 Chronic viral hepatitis C B18.2 [place] [address] 71799- 9578 28 Dec, 2014 [place] [address] 04695- 9026 Dec, Polyuria 788.42 [place] [address] 48102- 2350 Dec, Polyuria 788.42 ; Polydipsia 783.5 ; Dizziness 780.4 and Hepatitis C, chronic 070.54 [place] [address] [place] [id number] [place] [address] 02355- 5481 Dec, Major depressive disorder, recurrent episode, unspecified 296.30 and Generalized anxiety disorder 300.02 [place] [address] [place] [id number] [place] [address] 62732- 5622 Nov, [place] [address] [place] [id number] [place] [address] 71468- 0892 Nov, [facility] [id number] [place] [address] 35011- 2717 Nov, [facility] [address] 11243- 7173 Oct, [facility] [id number] [place] [address] 30176- 5900 Sep, [facility] [id number] [place] [address] 08070- 7871 August, Obsessive-compulsive disorders 300.3 ; Generalized anxiety disorder 300.02 and Major depressive disorder, recurrent episode, unspecified 296.30 [facility] [address] [address]- 4069 August, Chronic hepatitis C without mention of hepatic coma 070.54 ; Hypertension 401.9 and Seasonal allergies 477.9 [facility] [id number] [address]- 0016 Jul, [facility] [id number] [place] [address] 65631- 3213 Jul, [facility] [id number] [place] [address] 98765- 1990 Jun, [facility] [id number] [place] [address] 67649- 5259 Jun, [facility] [id number] [place] [address] 03378- 0934 May, [facility] [id number] [place] [address] 29134- 6417 May, [facility] [id number] [place] [address] 11243- 8569 May, [facility] [id number] [address]- 7218 May, [facility] [address] [address]- 7595 Apr, [facility] [address] [address]- 3645 Apr, [facility] [id number] [place] [address] 00558- 3574 Apr, [facility] [id number] [place] [address] 62981- 4199 Apr, [facility] [id number] [address]- 5703 Apr, [facility] [place] [facility] [address] [id number] [place] [address]- 9277 Apr, [facility] [place] [facility] [address] [id number] [place] [address]- 7513 Mar, [facility] [place] [facility] [address] [id number] [place] [address]- 8337 Mar, [facility] [place] [facility] [address] [id number] [place] [address] Mar, [facility] [place] [facility] [address] [id number] [place] [address] Mar, [facility] [place] [facility] [address] [id number] [place] [address] Mar, [facility] [place] [facility] [address] [id number] [place] [address] Mar, [facility] [place] [facility] [address] [id number] [place] [address] Mar, [facility] [place] [facility] [address] [id number] [place] [address] Mar, [facility] [place] [facility] [address] [id number] [place] [address] Mar, [facility] [place] [facility] [address] [id number] [place] [address] Feb, [facility] [place] [facility] [address] [id number] [place] [address] Feb, [facility] [place] [facility] [address] [id number] [place] [address]- [address] Feb, [facility] [place] [facility] [address] [id number] [place] [address] Feb, [facility] [place] [facility] [address] [id number] [place] [address] Feb, [facility] [place] [facility] [address] [id number] [place] [address] Jan, [facility] [place] [facility] [address] [id number] [place] [address] Jan, [facility] [place] [facility] [address] [id number] [place] [address] Jan, [facility] [place] [facility] [address] [id number] [place] [address] Jan, [facility] [place] [facility] [address] [id number] [place] [address] Jan, [facility] [place] [facility] [address] [id number] [place] [address] Jan, [facility] [place] [facility] [address] [id number] [place] [address] Jan, [facility] [place] [facility] [address] [id number] [place] [address]- [address] Jan, [facility] [place] [facility] [address] [id number] [place] [address]- [address] Jan, [facility] [place] [facility] [address] [id number] [place] [address] Nov, [facility] [place] [facility] [address] [id number] [place] [address] Nov, [facility] [place] [facility] [address] [id number] [place] [address]- [address] Nov, [facility] [place] [facility] [address] [id number] [place] [address] Oct, [facility] [place] [facility] [address] [id number] [place] [address] Oct, [facility] [place] [facility] [address] [id number] [place] [address] Oct, [facility] [place] [facility] [address] [id number] [place] [address] Oct, [facility] [place] [facility] [address] [id number] [place] [address]- [address] Sep, [facility] [place] [facility] [address] [id number] [place] [address] Sep, [facility] [place] [facility] [address] [id number] [place] [address] Sep, [facility] [place] [facility] [address] [id number] [place] [address]- [address] Sep, [facility] [place] [facility] [address] [id number] [place] [address] Sep, [facility] [place] [facility] [address] [id number] [place] [address] Sep, [facility] [place] [facility] [address] [id number] [place] [address] August, [facility] [place] [facility] [address] [id number] [place] [address] August, [facility] [place] [facility] [address] [id number] [place] [address] Jul, [facility] [place] [facility] [address] [id number] [place] [address] Jul, [facility] [place] [facility] [address] [id number] [place] [address] Jul, [facility] [place] [facility] [address] [id number] [place] [address] Jul, [facility] [place] [facility] [address] [id number] [place] [address] Jul, [facility] [place] [facility] [address] [id number] [place] [address] Jul, [facility] [place] [facility] [address] [id number] [place] [address] Jul, [facility] [place] [facility] [address] [id number] [place] [address] Jul, [facility] [place] [facility] [address] [id number] [place] [address] Jul, [facility] [place] [facility] [address] [id number] [place] [address] Jul, [facility] [place] [facility] [address] [id number] [place] [address] Jun, [facility] [place] [facility] [address] [id number] [place] [address] Jun, [facility] [place] [facility] [address] [id number] [place] [address] Jun, [facility] [place] [facility] [address] [id number] [place] [address] Jun, [facility] [place] [facility] [address] [id number] [place] [address] May, [facility] [place] [facility] [address] [id number] [place] [address] May, [facility] [place] [facility] [address] [id number] [place] [address] 280[address] May, [facility] [place] [facility] [address] [id number] [place] [address] May, [facility] [place] [facility] [address] [id number] [place] [address] May, [facility] [place] [facility] [address] [id number] [place] [address] May, [facility] [place] [facility] [address] [id number] [place] [address] Mar, [facility] [place] [facility] [address] [id number] [place] [address] Mar, [facility] [place] [facility] [address] [id number] [place] [address] 1997 Mar, [facility] [place] [facility] [address] [id number] [place] [address] 16 Mar, 2013 [facility] [place] [facility] [address] [id number] [place] [address]- 28[address] 16 Mar, 2013 [facility] [place] [facility] [address] [id number] [place] [address]- 488[address] 16 Mar, 2013 [facility] [place] [facility] [address] [id number] [place] [address] 8080 23 Feb, 2013 [facility] [place] [facility] [address] [id number] [place] [address] 23 Feb, 2013 [facility] [place] [facility] [address] [id number] [place] [address] 1990 Feb, [facility] [place] [facility] [address] [id number] [place] [address] Feb, [facility] [place] [facility] [address] [id number] [place] [address] 48[address] Feb, [facility] [place] [facility] [address] [id number] [place] [address]- [address] 12 Feb, 2013 [facility] [place] [facility] [address] [id number] [place] [address] 07 Feb, 2013 [facility] [place] [facility] [address] [facility] [id number] [place] [address]- [address] 07 Feb, 2013 [facility] [place] [facility] [address] [id number] [place] [address] 18 Jan, 2013 [facility] [place] [facility] [address] [id number][place] [address] 18 Jan, 2013 [facility] [place] [facility] [address] [id number][place] [address] 17 Jan, 2013 [facility] [place] [facility] [address] [id number][place] [address] 16 Jan, 2013 [facility] [place] [facility] [address] [facility]NOTE [facility] [id number][place] [address] 16 Jan, 2013 [facility] [place] [facility] [address] [id number] [place] [address]- [address] 14 Jan, 2013 [facility] [place] [facility] [address] [id number] [place] [address]- [address] 14 Jan, 2013 [facility] [place] [facility] [address] [id number] [place] [address]- 7981 11 Jan, 2013 [facility] [place] [facility] [address] [id number] [place] [address]- 7899 11 Jan, 2013 [facility] [place] [facility] [address] [id number] [place] [address] 10 Jan, 2013 [facility] [place] [facility] [address] [id number] [place] [address]- 1193 27 Dec, 2012 [facility] [place] [facility] [address] [id number] [place] [address]- 1811 18 Dec, 2012 [facility] [place] [facility] [address] [id number] [place] [address]- 3163 18 Dec, 2012 [facility] [place] [facility] [address] [id number] [place] [address]- [address]642 30 Nov, 2012 [facility] [place] [facility] [address] [id number] [place] [address]- [address] Nov, [facility] [place] [facility] [address] [id number] [place] [address]- [address]141 Nov, [facility] [place] [facility] [address] [id number] [place] [address]- 6799 Nov, [facility] [place] [facility] [address] [id number] [place] [address] Nov, [facility] [place] [facility] [address] [id number] [place] [address]- 1733 Nov, [facility] [place] [facility] [address] [id number] [place] [address] Nov, [facility] [place] [facility] [address] [id number] [place] [address]- 48[address] Nov, [facility] [place] [facility] [address] [id number] [place] [address]39 Nov, [facility] [place] [facility] [address] [id number] [place] [address]- 6106 Nov, [facility] [place] [facility] [address] [id number] [place] [address]- 38[address] Oct, [facility] [place] [facility] [address] [id number] [place] [address]- 4013 Oct, [facility] [place] [facility] [address] [id number] [place] [address]- 3560 Oct, [facility] [place] [facility] [address] [id number] [place] [address]- 4[address] Oct, [facility] [place] [facility] [address] [id number] [place] [address]- 9129 Oct, [facility] [place] [facility] [address] [id number] [place] [address]- 1376 Oct, [facility] [place] [facility] [address] [id number] [place] [address]- 2141 Oct, [facility] [place] [facility] [address] [id number] [place] [address]- 8497 Oct, [facility] [place] [facility] [address] [id number] [place] [address]- 8873 Sep, [facility] [place] [facility] [address] [id number] [place] [address]- 6513 Sep, [facility] [place] [facility] [address] [id number] [place] [address]- 4168 Sep, [facility] [place] [facility] [address] [id number] [place] [address]- 2463 Sep, [facility] [place] [facility] [address] [id number] [place] [address]- 6239 August, [facility] [place] [facility] [address] [id number], [place] [address] August, [facility] [address] [id number], [place] [address] August, [facility] [address] [id number] Jul, [facility] [address] [place] [id number] Jul, [facility] [address] [id number] [place] [address]- 4330 Jun, [facility] [address] [id number] [place] [address]- 6483 May, [facility] [address] [id number] [place] [address]- 0566 May, [facility] [address] [id number] [place] [address]- 8189 Apr, [facility] [address] [id number][place] [address] 6[address] Feb, [facility] [place] [facility] [address] [id number] [place] [address]- 0976 Feb, [facility] [place] [facility] [address] [id number] [address] Jan, [facility] [place] [facility] [address] [id number][place] [address]- 8397 Jan, [facility] [place] [facility] [address] [id number][place] [address]- 0168 Jan, [facility] [place] [facility] [address] [id number] [place] [address]- 4855 Jan, [facility] [place] [facility] [address] [id number] [place] [address]- 4776 Jan, [facility] [place] [facility] [address] [id number][place] [address]- [address]46 Dec, [facility] [place] [facility] [address] [id number][place] [address]- 67[address] Dec, [facility] [address] [id number] [place] [id number] Nov, [facility] [place] [facility] [address] [id number] [place] [address]- 6453 Nov, [facility] [place] [facility] [address] [id number] [place] [address]- 3052 Nov, [facility] [place] [facility] [address] [id number] [place] [address]- 6180 Nov, [facility] [place] [facility] [address] [id number] [place] [address]- 2839 August, [facility] [place] [facility] [address] [id number] [place] [address]- 3906 August, [facility] [place] [facility] [address] [id number] [place] [address]- 9248 August, [facility] [place] [facility] [address] [id number] [place] [address]- 5832 Jul, [facility] [place] [facility] [address] [id number] [place] [address]- 2686 May, [facility] [place] [facility] [address] [id number] [place] [address]- 6791 May, [facility] [place] [facility] [address] [id number] [place] [address]- 0307 May, [facility] [place] [facility] [address] [id number] [place] [address]- 9888 Mar, [facility] [place] [facility] [address] [id number] [place] [address] Jan, [facility] [place] [facility] [address] [id number] [place] [address]- 3756 Jan, [facility] [place] [facility] [address] [id number] [place] [address]- 5196 Oct, [facility] [place] [facility] [address] [facility]] [id number] [place] [address]- [address] August, [facility] [address] [facility]NOTE 3] [id number][place] [address]- [address] Jan, [facility] [address] [facility]NOTE 3] [id number][place] [address]- [address] Jan, [place] [address] [facility]NOTE 3] [id number][place] [address]- [address] Jan, [facility] [address] [facility]NOTE 3] [id number][place] [address] Jan, IMMUNIZATIONS No Known Immunizations SOCIAL HISTORY Never Assessed REASON FOR VISIT Congestion for 9 days, cough with white flem -[place] [facility] PLAN OF CARE Activity Details Follow Up Routine appt Reason: VITAL SIGNS Height 72 in 2017-10-27 Weight 237.6 lbs 2017-10-27 Temperature 98.6 degrees Fahrenheit 2017-10-27 Heart Rate 68 bpm 2017-10-27 Respiratory Rate 20 2017-10-27 Oximetry 98 % 2017-10-27 BMI 32.22 kg/m2 2017-10-27 Blood pressure systolic 122 mmHg 2017-10-27 Blood pressure diastolic 98 mmHg 2017-10-27 MEDICATIONS Medication Instructions Dosage Frequency Start Date End Date Duration Status Xanax 2 MG Orally 4 times a day 1 tablet 6h Jun, 28 days Active Centrum Adults Active Dandelion Root 520 MG Not-Taking Tessalon Perles 100 mg Orally Three times a day 1 capsule as needed 8h Oct, Active Triamcinolone Acetonide 0.1 % Externally Twice a day 1 application to affected area 12h Nov, Active Cetirizine HCl 10 mg Orally Once a day 1 tablet 24h Jul, Jan, 30 day(s) Active Ketoconazole 2 % Externally no more than twice a day 1 application to affected area Nov, Active Zithromax Z-Bimal 250 MG Orally Once a day 2 tablets on the first day, then 1 tablet daily for 4 days 24h Oct, Oct, 5 day(s) Active PredniSONE 20 mg Orally Once a day 2 tablets 24h Oct, Oct, 05 days Active Aspirin 81 MG Orally Once a day 1 tablet 24h May, Active Albuterol Sulfate HFA 108 (90 Base) MCG/ACT Inhalation every 4 hrs 2 puffs as needed 4h 11 Mar, 2015 Active Pepcid 20 mg Orally Once a day 1 tablet at bedtime 24h Jul, 30 day(s) Active Lexapro 20 mg Orally Once a day 1 tablet 24h Active Mirtazapine 15 MG TAKE 1 TABLET AT BEDTIME 90 Active Potassium Chloride ER 10 MEQ TAKE 1 CAPSULE EVERY DAY 90 Active Lisinopril-Hydrochlorothiazide 20-25 MG Orally Once a day 1 tablet 24h Mar, Active Propranolol HCl 40 MG TAKE 1 TABLET THREE TIMES DAILY 90 Active Gabapentin 600 MG Orally 3 times a day 1 tablet 8h Active RESULTS No Results PROCEDURES Procedure Date Ordered Result Body Site [facility] VISIT ESTABLISHED PATIENT October 27, 2017 INSTRUCTIONS MEDICATIONS ADMINISTERED No Known Medications MEDICAL [...]
--- OUTSIDE RECORDS SUMMARY | 2018-02-08 21:15 | XMS REPORT ---
Author Author SAUD STEEL [facility] Address [address] [place] [address] Care Team Providers Care Wrapper Layer Name Role Phone SAUD STEEL Unavailable PROBLEMS Type Condition ICD9-CM Code [id number] Code Onset Dates Condition Status SNOMED Code Problem History of alcohol abuse Z87.898 Active 129525748 Problem Mood disorder F39 Active 07559605 Problem Generalized anxiety disorder F41.1 Active 81638417 Problem Hypertension, benign I10 Active 18551297 Problem Allergic rhinitis, unspecified allergic rhinitis type J30.9 Active 36895052 Problem Chronic hepatitis C without hepatic coma B18.2 Active 266671738 Problem Obsessive compulsive disorder F42 Active 344732887 Problem Hyperammonemia E72.20 Active 1926226 ALLERGIES No Information ENCOUNTERS Encounter Location Date Diagnosis [facility] [address] [address]- [address] Dec, [facility] [address] [address]113- 8953 Dec, Chronic hepatitis C without hepatic coma B18.2 [facility] [id number] [place] [address] 14935- 5758 Nov, Chronic hepatitis C without hepatic coma B18.2 [facility] [id number] [place] [address] 11842- 1357 Oct, Bronchitis J40 [facility] [address] 96327- 7877 Oct, Chronic hepatitis C without hepatic coma B18.2 and Cough R05 [facility] [address] 08656- 5476 Sep, Chronic hepatitis C without hepatic coma B18.2 [facility] [address], [place] [address] 2084 August, Chronic hepatitis C without hepatic coma B18.2 [facility] [id number] [address] 5526 Jul, Chronic hepatitis C without hepatic coma B18.2 [facility] [address], [place] [address] 9775 Jul, Generalized anxiety disorder F41.1 ; Mood disorder F39 and History of hepatitis C Z86.19 [facility] [address], [place] [address] 7781 Jul, Chronic hepatitis C without hepatic coma B18.2 [facility] [address], [place] [address] 7328 Jun, Chronic hepatitis C without hepatic coma B18.2 [facility] [id number] [place] [address] 08312- 8083 Jun, [facility] [address], [place] [address] 0765 May, Chronic hepatitis C without hepatic coma B18.2 [facility] [address], [place] [address] 3637 May, Hypertension, benign I10 [facility] [id number], [place] [address] 4270 Apr, Chronic hepatitis C without hepatic coma B18.2 [facility] [address], [place] [address]- 3002 Apr, Hypertension, benign I10 [facility] [id number] [address] 4477 Mar, Chronic hepatitis C without hepatic coma B18.2 [facility] [id number] 7[address] Mar, Hypertension, benign I10 [facility] [id number] [place] [address] 64157- 2087 Mar, Hypertension, benign I10 ; Encounter for immunization Z23 and Strain of right Achilles tendon, initial encounter S86.011A [facility] [id number] [place] [address] 63572- 4652 Feb, Chronic hepatitis C without hepatic coma B18.2 [facility] [id number] [place] [address] 50583- 9592 Jan, Chronic hepatitis C without hepatic coma B18.2 [facility] [id number] [place] [address] 04087 -1693 Jan, Toe pain, right M79.674 and Cellulitis of foot, right L03.115 [facility] [id number] [place] [address] 25745- 1966 Dec, Chronic hepatitis C without hepatic coma B18.2 [facility] [id number] [place] [address] 31520- 1484 Nov, Chronic hepatitis C without hepatic coma B18.2 and Eczema of both hands L30.9 [facility] [id number] [place] [address] 17780- 4650 Nov, [facility] [id number] [place] [address] 68317- 7216 Oct, [facility] [id number] [place] [address] 34989- 6353 Sep, [facility] [id number] [place] [address] 87932- 1675 August, [facility] [id number] [place] [address] 71093- 3301 August, [facility] [id number] [place] [address] 01474- 4885 Jul, [facility] [id number] [place] [address] 70567- 5010 Jul, [facility] [address], [place] [address]- 2390 Jun, [facility] [id number] [place] [address]- 2306 Jun, [facility] [address], [place] [address]- 1872 May, [facility] [id number] [place] [address] 60927- 1580 Apr, Chronic hepatitis C without hepatic coma B18.2 ; Hyperglycemia R73.9 and Hypertension, benign I10 [facility] [id number] [place] [address] 40403- 2612 Apr, Chronic hepatitis C without hepatic coma B18.2 ; Mood disorder F39 ; Hypertension, benign I10 and Hyperglycemia R73.9 [facility] [address], [place] [address]- 0780 Apr, [facility] [address], [place] [address]- 0193 Apr, [facility] [id number] [address]- 4047 Apr, [facility] [address], [place] [address]- 5121 Feb, [facility] [address], [place] [address]- 9888 Feb, [facility] [address], [place] [address]- 2549 Feb, [facility] [address], [place] [address]- 0983 Feb, [facility] [id number] [place] [address]- 9162 Jan, [facility] [address], [place] [address]- 9337 Jan, Chronic hepatitis C without hepatic coma B18.2 ; Mood disorder F39 ; Encounter for immunization Z23 and Chronic viral hepatitis C B18.2 [facility] [address], [place] [address]- 0782 Jan, [facility] [id number] [address]- 0419 Jan, [facility] [id number] [place] [address] 12415- 8058 Dec, [facility] [id number] [place] [address] 43730- 4025 Dec, [facility] [id number] [place] [address] 70396- 1434 Nov, [facility] [id number] [place] [address] 38132- 3164 Nov, Weakness of both legs M62.81 [facility] [id number] [place] [address] 96166- 1046 Nov, [facility] [id number] [place] [address] 52339- 7496 Nov, [facility] [id number] [place] [address] 33943- 5347 Nov, [facility] [address], [place] [address]- 8719 Nov, Eczema, unspecified type L30.9 [facility] [address], [place] [address]- 4943 Nov, [facility] [address], [place] [address]- 8331 Nov, Eczema, unspecified type L30.9 ; Cessation of tobacco use in previous 12 months Z87.891 and Weakness of both legs M62.81 [facility] [address], [place] [address]- 2769 Oct, [facility] [id number] [address]- 5228 Oct, [facility] [address], [place] [address]- 5413 Oct, [facility] [address], [place] [address]- 5860 Oct, Chronic viral hepatitis C B18.2 [facility] [id number] [place] [address] 67701- 5851 Sep, [facility] [id number] [place] [address] 85932- 3225 Sep, 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 and Generalized anxiety disorder F41.1 [facility] [id number] [place] [address] 37199- 8137 Sep, [facility] [id number] [place] [address] 32609- 5939 August, [facility] [id number] [place] [address] 82134- 2043 August, Hyperammonemia E72.20 [facility] [id number] [place] [address] 65161- 4435 August, Hyperammonemia E72.20 [facility] [address], [place] [address]- 8021 August, Hyperammonemia E72.20 and Chronic hepatitis C without hepatic coma B18.2 [facility] [address], [place] [address]- 3222 August, Chronic viral hepatitis C B18.2 [facility] [id number], [place] [address]- 0625 August, [facility] [address], [place] [address]- 1374 Jul, Chronic viral hepatitis C B18.2 and Hyperammonemia E72.20 [facility] [id number] [place] [address]- 7236 13 Jul, 2015 Chronic viral hepatitis C B18.2 [facility] [id number] [place] [address]- 1966 13 Jul, 2015 [facility] [id number] [place] [address] 2546 04 Jul, 2015 [facility] [id number] [place] [address], [place] [address]- 2946 28 Jun, 2015 [facility] [id number] [place] [address] 2549 23 Jun, 2015 Chronic viral hepatitis C B18.2 and Hyperammonemia E72.20 [facility] [id number] [place] [address]- 2536 21 Jun, 2015 [facility] [id number] [place] [address], [place] [address]- 2196 18 Jun, 2015 [facility] [id number] [place] [address]- 8384 16 Jun, 2015 Chronic viral hepatitis C B18.2 [facility] [id number] [place] [address]- 2423 10 Jun, 2015 [facility] [id number] [place] [address]- 1109 07 Jun, 2015 Chronic viral hepatitis C B18.2 [facility] [address], [place] [address]- 2540 17 May, 2015 Hepatitis C, chronic B18.2 and Chronic viral hepatitis C B18.2 [facility] [id number] 3076 May, [facility] [id number] 4331 Apr, [facility] [id number] 3504 Apr, Chronic viral hepatitis C B18.2 and Hyperammonemia E72.20 [facility] [id number] [place] [address] 36195- 8980 Apr, Chronic viral hepatitis C B18.2 [facility] [id number] [place] [address] 58025- 1655 Apr, Hyperammonemia E72.20 [place] [address] 55179- 8180 Apr, [facility] [id number] [place] [address] 27107- 7451 Apr, [place] [address] 40323- 9084 Apr, Chronic hepatitis C without hepatic coma B18.2 ; Hyperammonemia E72.20 and Chronic viral hepatitis C B18.2 [place] [facility] [address] 28146- 6809 Mar, Shortness of breath R06.02 [place] [id number] [place] [address] 39608- 4280 Mar, Mood disorder F39 and Major depressive disorder, recurrent episode, unspecified 296.30 [facility] [id number] [place] [address] 63410- 1322 Mar, [facility] [id number] [place] [address] 46458- 5875 18 Mar, 2015 [facility] [id number] [place] [address] 17899- 6263 15 Mar, 2015 [facility] [id number] [place] [address] 31517 -4772 Mar, Seasonal allergies J30.2 ; Shortness of breath R06.02 and Cough R05 [facility] [id number] [place] [address] 96784- 1389 Mar, Hyperammonemia E72.20 ; Mood disorder F39 and History of alcohol abuse Z87.898 [facility] [id number] [place] [address] 03227- 9603 Mar, Hyperammonemia E72.20 [facility] [id number] [place] [address] 75124 2546 Mar, [facility] [id number] [place] [address] 25808- 3996 Feb, [facility] [id number] [place] [address] 81073- 0080 Feb, [facility] [id number] [place] [address] 85987- 2319 Feb, Hyperammonemia E72.20 [facility] [id number] [place] [address] 55177- 9162 Feb, [facility] [id number] [place] [address] 96703- 4442 Feb, [facility] [id number] [place] [address] 40384- 1707 Feb, [facility] [id number] [place] [address] 73612 254 Feb, [facility] [id number] [place] [address] 01577- 4165 Feb, Chronic viral hepatitis C B18.2 [facility] [id number] [place] [address] 42063 2543 Feb, Chronic viral hepatitis C B18.2 [facility] [id number] [place] [address] 93907 2546 Feb, [facility] [id number] [place] [address] 06961 2545 Feb, Chronic viral hepatitis C B18.2 and Confusion R41.0 [facility] [id number] [place] [address] 28627- 2012 Feb, [facility] [address] [facility] [id number] [address]- 1844 Jan, [facility] [address] [facility] [id number] [place] [address] 05566- 6914 Jan, Confusion R41.0 [facility] [address], [place] [address]- 0169 Jan, [facility] [id number] [place] [address] 36951- 9610 Jan, [facility] [id number] [place] [address] 90196- 1069 Jan, [facility] [address] [place] [address] 94179- 5157 Jan, [facility] [id number] [place] [address] 98727- 0360 Jan, Chronic viral hepatitis C B18.2 and 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 [facility] [address] [place] [address] 92259- 3378 Jan, [facility] [id number] [place] [address] 54709- 1485 Jan, [facility] [address], [place] [address]- 1585 Jan, [facility] [id number] [place] [address] 17439- 8880 Jan, [facility] [address] [place] [address] 92907- 4058 Jan, Chronic viral hepatitis C B18.2 [facility] [address], [place] [address]- 5162 Jan, [facility] [id number] [address]- 8189 14 Jan, 2015 Back pain at L4-L5 level M54.5 and Confusion R41.0 [facility] [id number] [place] [address] 01271- 3134 Jan, [place] [address] 85953- 8833 30 Dec, 2014 Chronic viral hepatitis C B18.2 and Flu vaccine need V04.81 [place] [address] 46631- 4818 30 Dec, 2014 Chronic viral hepatitis C B18.2 [place] [address] 42009- 2498 28 Dec, 2014 [place] [address] 87507- 7551 Dec, Polyuria 788.42 [place] [address] 37434- 3429 Dec, Polyuria 788.42 ; Polydipsia 783.5 ; Dizziness 780.4 and Hepatitis C, chronic 070.54 [place] [id number] [place] [address] 95895- 9619 Dec, Major depressive disorder, recurrent episode, unspecified 296.30 and Generalized anxiety disorder 300.02 [place] [id number] [place] [address] 27480- 2034 Nov, [place] [id number] [place] [address] 86337- 6102 Nov, [facility] [id number] [place] [address] 32811- 7651 Nov, [facility] [id number] [place] [address] 43109- 9609 Oct, [facility] [id number] [place] [address] 44748- 5818 Sep, [facility] [id number] [place] [address] 65385- 5811 August, Obsessive-compulsive disorders 300.3 ; Generalized anxiety disorder 300.02 and Major depressive disorder, recurrent episode, unspecified 296.30 [facility] [address], [place] [address]- 1536 August, Chronic hepatitis C without mention of hepatic coma 070.54 ; Hypertension 401.9 and Seasonal allergies 477.9 [facility] [id number] [address]- 8165 Jul, [facility] [id number] [place] [address] 94322- 2403 Jul, [facility] [id number] [address]- 0365 Jun, [facility] [id number] [place] [address] 71416- 2782 Jun, [facility] [id number] [place] [address] 36564- 3238 May, [facility] [id number] [place] [address] 21495- 7818 May, [facility] [id number] [place] [address] 85451- 5256 May, [facility] [id number] [address]- 5083 May, [facility] [address], [place] [address]- 2579 Apr, [facility] [address], [place] [address]- 3623 Apr, [facility] [address], [place] [address]- 6223 Apr, [facility] [id number] [address]- 5481 Apr, [facility] [address], [place] [address]- 8292 Apr, [facility] [place] [facility] [address] [id number] [place] [address]- 1094 Apr, [facility] [place] [facility] [address] [id number] [place] [address]- 0460 Mar, [facility] [place] [facility] [address] [id number] [place] [address]- 4319 Mar, [facility] [place] [facility] [address] [id number] [place] 1582 Mar, [facility] [place] [facility] [address] [id number] [place] 8253 Mar, [facility] [place] [facility] [address] [id number] [place] 8796 Mar, [facility] [place] [facility] [address] [id number] [place] 9197 Mar, [facility] [place] [facility] [address] [id number] [place] [address]- 4020 Mar, [facility] [place] [facility] [address] [id number] [place] 1353 Mar, [facility] [place] [facility] [address] [id number] [place] 5784 Mar, [facility] [place] [facility] [address] [id number] [place] [address]- 9982 Feb, [facility] [place] [facility] [address] [id number] [place] [address]- 8963 Feb, [facility] [place] [facility] [address] [id number] [place] [address]- 8448 Feb, [facility] [place] [facility] [address] [id number] [place] [address]- 6209 Feb, [facility] [place] [facility] [address] [id number] [place] [address]- 2936 Feb, [facility] [place] [facility] [address] [id number] [place] [address] Jan, [facility] [place] [facility] [address] [id number] [place] [address] Jan, [facility] [place] [facility] [address] [id number] [place] [address] Jan, [facility] [place] [facility] [address] [id number] [place] [address] Jan, [facility] [place] [facility] [address] [id number] [place] [address] Jan, [facility] [place] [facility] [address] [id number] [place] [address] Jan, [facility] [place] [facility] [address] [id number] [place] [address] Jan, [facility] [place] [facility] [address] [id number] [place] [address] Jan, [facility] [place] [facility] [address] [id number] [place] [address] Jan, [facility] [place] [facility] [address] [id number] [place] [address] Nov, [facility] [place] [facility] [address] [id number] [place] [address]- [address] Nov, [facility] [place] [facility] [address] [id number] [place] [address] Nov, [facility] [place] [facility] [address] [id number] [place] [address] Oct, [facility] [place] [facility] [address] [id number] [place] [address] Oct, [facility] [place] [facility] [address] [id number] [place] [address] Oct, [facility] [place] [facility] [address] [id number] [place] [address] Oct, [facility] [place] [facility] [address] [id number] [place] [address] Sep, [facility] [place] [facility] [address] [id number] [place] [address] Sep, [facility] [place] [facility] [address] [id number] [place] [address] Sep, [facility] [place] [facility] [address] [id number] [place] [address]- [address] Sep, [facility] [place] [facility] [address] [id number] [place] [address]69 Sep, [facility] [place] [facility] [address] [id number] [place] [address]- [address] Sep, [facility] [place] [facility] [address] [id number] [place] [address] August, [facility] [place] [facility] [address] [id number] [place] [address] August, [facility] [place] [facility] [address] [id number] [place] [address] Jul, [facility] [place] [facility] [address] [id number] [place] [address] Jul, [facility] [place] [facility] [address] [id number] [place] [address] Jul, [facility] [place] [facility] [address] [id number] [place] [address]- [address] Jul, [facility] [place] [facility] [address] [id number] [place] [address] Jul, [facility] [place] [facility] [address] [id number] [place] [address] Jul, [facility] [place] [facility] [address] [id number] [place] [address] Jul, [facility] [place] [facility] [address] [id number] [place] [address] Jul, [facility] [place] [facility] [address] [id number] [place] [address] Jul, [facility] [place] [facility] [address] [id number] [place] [address] Jul, [facility] [place] [facility] [address] [id number] [place] [address] Jun, [facility] [place] [facility] [address] [id number] [place] [address] Jun, [facility] [place] [facility] [address] [id number] [place] [address] Jun, [facility] [place] [facility] [address] [id number] [place] [address] Jun, [facility] [place] [facility] [address] [id number] [place] [address] May, [facility] [place] [facility] [address] [id number] [place] [address] May, [facility] [place] [facility] [address] [id number] [place] [address] May, [facility] [place] [facility] [address] [id number] [place] [address] 3069 May, [facility] [place] [facility] [address] [id number] [place] [address] May, [facility] [place] [facility] [address] [id number] [place] [address]- [address] May, [facility] [place] [facility] [address] [id number] [place] [address] Mar, [facility] [place] [facility] [address] [id number] [place] [address] Mar, [facility] [place] [facility] [address] [id number] [place] [address] Mar, [facility] [place] [facility] [address] [id number], [place] [address] 16 Mar, 2013 [facility] [address] [id number] [place] [address] 16 Mar, 2013 [facility] [place] [facility] [address] [id number], [place] [address] 16 Mar, 2013 [facility] [place] [facility] [address] [id number] [place] [address] Feb, [facility] [place] [facility] [address] [id number] [place] [address] Feb, [facility] [place] [facility] [address] [id number] [place] [address] Feb, [facility] [place] [facility] [address] [id number], [place] [address] Feb, [facility] [address] [id number], [place] [address] Feb, [facility] [place] [facility] [address] [id number], [place] [address] 12 Feb, 2013 [facility] [place] [facility] [address] [id number], [place] [address] 07 Feb, 2013 [facility] [place] [facility] [address] [id number], [place] [address] 07 Feb, 2013 [facility] [place] [facility] [address] [id number], [place] [address] 18 Jan, 2013 [facility] [place] [facility] [address] [id number], [place] [address] 18 Jan, 2013 [facility] [place] [facility] [address] [id number], [place] [address] 17 Jan, 2013 [facility] [place] [facility] [address] [id number], [place] [address] 16 Jan, 2013 [facility] [place] [facility] [address] [id number], [place] [address] 16 Jan, 2013 [facility] [place] [facility] [address] [id number] [place] [address]- [address] 14 Jan, 2013 [facility] [place] [facility] [address] [id number] [place] [address]- 2583 14 Jan, 2013 [facility] [place] [facility] [address] [id number] [place] [address]- 6487 11 Jan, 2013 [facility] [place] [facility] [address] [id number] [place] [address] 8777 11 Jan, 2013 [facility] [place] [facility] [address] [id number] [place] [address]- 8764 10 Jan, 2013 [facility] [place] [facility] [address] [id number] [place] [address]220 27 Dec, 2012 [facility] [place] [facility] [address] [id number] [place] [address]- 4469 18 Dec, 2012 [facility] [place] [facility] [address] [id number] [place] [address] 7664 18 Dec, 2012 [facility] [place] [facility] [address] [id number] [place] [address]- 3360 30 Nov, 2012 [facility] [place] [facility] [address] [id number] [place] [address] 6448 29 Nov, 2012 [facility] [place] [facility] [address] [id number] [place] [address]- [address]777 Nov, [facility] [place] [facility] [address] [id number] [place] [address] 3827 Nov, [facility] [place] [facility] [address] [id number] [place] [address] 8475 Nov, [facility] [place] [facility] [address] [id number] [place] [address] 2543 Nov, [facility] [place] [facility] [address] [id number] [place] [address] 2549 Nov, [facility] [place] [facility] [address] [id number] [place] [address]- 2549 Nov, [facility] [place] [facility] [address] [id number] [place] [address] 6484 Nov, [facility] [place] [facility] [address] [id number] [place] [address] 7963 Nov, [facility] [place] [facility] [address] [id number] [place] [address] 4429 Oct, [facility] [place] [facility] [address] [id number] [place] [address] 6690 Oct, [facility] [place] [facility] [address] [id number] [place] [address]576 Oct, [facility] [place] [facility] [address] [id number] [place] [address] 3713 Oct, [facility] [place] [facility] [address] [id number] [place] [address]- 2796 Oct, [facility] [place] [facility] [address] [id number] [place] [address]- 5595 Oct, [facility] [place] [facility] [address] [id number] [place] [address] 8998 Oct, [facility] [place] [facility] [address] [id number] [place] [address] 9155 Oct, [facility] [place] [facility] [address] [id number] [place] [address]- 4973 Sep, [facility] [place] [facility] [address] [id number] [place] [address]- 4547 Sep, [facility] [place] [facility] [address] [id number] [place] [address]- 1274 Sep, [facility] [place] [facility] [address] [id number] [place] [address]- 2069 Sep, [facility] [place] [facility] [address] [id number] [place] [address] 3064 August, [facility] [place] [facility] [address] [id number] [place] [address]- 2821 August, [facility] [address] [id number] [place] [address] August, [facility] [address] [id number] Jul, [facility] [address] [id number] Jul, [facility] [address] [id number] [place] [address] 3142 Jun, [facility] [address] [id number] [place] [address] 3434 May, [facility] [address] [id number] [place] [address] 3656 May, [facility] [address] [facility] [id number] [place] [address] 8667 Apr, [facility] [address] [id number], [place] [address]656 Feb, [facility] [place] [facility] [address] [id number] [place] [address]- 5877 Feb, [facility] [address] [facility] [id number] [place] [address]- 1448 Jan, [facility] [place] [facility] [address] [id number] [place] [address]- 6924 Jan, [facility] [place] [facility] [address] [id number], [place] [address] Jan, [facility] [place] [facility] [address] [id number] [place] [address]- 8277 Jan, [facility] [place] [facility] [address] [id number] [place] [address]- 6476 Jan, [facility] [place] [facility] [address] [id number] [place] [address]- 2546 Dec, [facility] [place] [facility] [address] [id number], [place] [address]- [address] Dec, [facility] [address] [id number] [place] [id number] Nov, [facility] [address] [id number] [place] [address]- 9148 Nov, [facility] [place] [facility] [address] [id number] [place] [address]- 4707 Nov, [facility] [place] [facility] [address] [id number] [place] [address]- 5190 Nov, [facility] [place] [facility] [address] [id number] [place] [address]- 0369 August, [facility] [place] [facility] [address] [id number] [place] [address]- 9662 August, [facility] [place] [facility] [address] [id number] [place] [address]- 6765 August, [facility] [place] [facility] [address] [id number] [place] [address]- 3971 Jul, [facility] [place] [facility] [address] [id number] [place] [address]- 0871 May, [facility] [place] [facility] [address] [id number] [place] [address]- 4758 May, [facility] [place] [facility] [address] [id number], [place] [address]- 8488 May, [facility] [place] [facility] [address] [id number], [place] [address]- 3527 Mar, [facility] [place] [facility] [address] [id number] [place] [address]- 5235 Jan, [facility] [place] [facility] [address] [id number] [place] [address]- 4218 Jan, [facility] [place] [facility] [address] [id number] [place] [address]- 0302 Oct, [facility] [place] [facility] [address] [facility] [id number] [place] [address]- 2546 August, [facility] [address] [facility] [id number], [place] [address]- 0782 Jan, [facility] [address] [id number], [place] [address]- 9184 Jan, [facility] [address] [facility] [id number], [place] [address]- 6599 Jan, [facility] [address] [facility] [id number][place] [address] [address] Jan, IMMUNIZATIONS No Known Immunizations SOCIAL HISTORY Never Assessed REASON FOR VISIT Controlled Med Refill 11/20/17 PLAN OF CARE VITAL SIGNS MEDICATIONS Medication [...]
--- OUTSIDE RECORDS SUMMARY | 2018-02-08 21:16 | XMS REPORT ---
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 Name Role Phone ROSIO IRBY Unavailable PROBLEMS Type Condition ICD9-CM Code VQK41-OH Code Onset Dates Condition Status SNOMED Code Problem History of alcohol abuse Z87.898 Active 554499712 Problem Mood disorder F39 Active 64122630 Problem Generalized anxiety disorder F41.1 Active 60837471 Problem Hypertension, benign I10 Active 70466582 Problem Allergic rhinitis, unspecified allergic rhinitis type J30.9 Active 93083416 Problem Chronic hepatitis C without hepatic coma B18.2 Active 091776939 Problem Obsessive compulsive disorder F42 Active 219891268 Problem Hyperammonemia E72.20 Active 2286758 ALLERGIES No Known Allergies ENCOUNTERS Encounter Location Date Diagnosis [place] [id number] [address] Dec, [place] [address] 53[address]- 8321 Nov, Chronic hepatitis C without hepatic coma B18.2 [place] [address] 72176- 3507 Oct, Bronchitis J40 [facility] [address] 0[address]- 7885 Oct, Chronic hepatitis C without hepatic coma B18.2 and Cough R05 [facility] [address] 08561- 6979 Sep, Chronic hepatitis C without hepatic coma B18.2 [facility] [address] [address]- 5824 August, Chronic hepatitis C without hepatic coma B18.2 [facility] [address] [address] 0623 Jul, Chronic hepatitis C without hepatic coma B18.2 [facility] [address] [place] [id number] [place] [address] 64804- 7508 Jul, Generalized anxiety disorder F41.1 ; Mood disorder F39 and History of hepatitis C Z86.19 [facility] [address] [place] [id number] [place] [address] 60545- 4555 Jul, Chronic hepatitis C without hepatic coma B18.2 [facility] [address] [place] [id number] [place] [address] 25534- 5462 Jun, Chronic hepatitis C without hepatic coma B18.2 [facility] [address] [place] [id number] [place] [address] 33563- 4486 Jun, [facility] [address] [place] [id number] [place] [address] 06544- 9256 May, Chronic hepatitis C without hepatic coma B18.2 [facility] [address] [place] [id number] [place] [address] 88512- 8198 May, Hypertension, benign I10 [facility] [address] [place] [id number] [place] [address] 42495- 0367 Apr, Chronic hepatitis C without hepatic coma B18.2 [facility] [id number] [place] [address] 76794- 8575 Apr, Hypertension, benign I10 [facility] [address] [place] [id number] [place] [address] 29608- 6111 Mar, Chronic hepatitis C without hepatic coma B18.2 [facility] [address] [place] [id number] [place] [address] 09496- 7876 Mar, Hypertension, benign I10 [facility] [id number] [place] [address] 14164- 2546 Mar, Hypertension, benign I10 ; Encounter for immunization Z23 and Strain of right Achilles tendon, initial encounter S86.011A [facility] [address] [address]- 6443 Feb, Chronic hepatitis C without hepatic coma B18.2 [facility] [address] [address]- 8676 Jan, Chronic hepatitis C without hepatic coma B18.2 [facility] [id number] [place] [address] 46473 -0434 Jan, Toe pain, right M79.674 and Cellulitis of foot, right L03.115 [facility] [address] [place] [id number] [place] [address] 53904- 8798 Dec, Chronic hepatitis C without hepatic coma B18.2 [facility] [address] [place] [id number] [place] [address] 80567- 4590 Nov, Chronic hepatitis C without hepatic coma B18.2 and Eczema of both hands L30.9 [facility] [address] [place] [id number] [address]- 5613 Nov, [facility] [address] [address]- 2104 Oct, [facility] [id number] [place] [address] 49786- 4146 Sep, [facility] [address] [address]- 3831 August, [facility] [address] [address]- 0054 August, [facility] [address] [address]- 2875 Jul, [facility] [address] [place] [id number] [place] [address] 08781- 8984 Jul, [facility] [address] [address]- 1386 Jun, [facility] [address] [place] [id number] [address]- 1604 Jun, [facility] [address] [place] [id number] [place] [address] 68795- 4909 May, [facility] [address] [place] [id number] [place] [address] 13175- 9120 Apr, Chronic hepatitis C without hepatic coma B18.2 ; Hyperglycemia R73.9 and Hypertension, benign I10 [facility] [address] [place] [id number] [place] [address] 02912- 5447 Apr, Chronic hepatitis C without hepatic coma B18.2 ; Mood disorder F39 ; Hypertension, benign I10 and Hyperglycemia R73.9 [facility] [address] [place] [id number] [place] [address] 37979- 3677 Apr, [facility] [address] [place] [id number] [place] [address] 17721- 4279 Apr, [facility] [address] [place] [id number] [place] [address] 84665- 6143 Apr, [facility] [address] [place] [id number] [place] [address] 23182- 5944 Feb, [facility] [address] [place] [id number] [place] [address] 95242- 8952 Feb, [facility] [address] [place] [id number] [place] [address] 52310- 1104 Feb, [facility] [address] [place] [id number] [place] [address] 53589- 0971 Feb, [facility] [id number] [place] [address] 69895- 3319 Jan, [facility] [address] [place] [id number] [place] [address] 05900- 8207 Jan, Chronic hepatitis C without hepatic coma B18.2 ; Mood disorder F39 ; Encounter for immunization Z23 and Chronic viral hepatitis C B18.2 [facility] [address] [place] [id number] [place] [address] 47015- 8356 Jan, [facility] [address] [address]- 1503 Jan, [facility] [address] [address]- 1596 Dec, [facility] [address], [place] [address]- 1623 Dec, [facility] [address] [place] [id number] [place] [address] 91971- 7890 Nov, [facility] [address] [place] [id number] [place] [address] 24809- 0127 Nov, Weakness of both legs M62.81 [facility] [address] [address]- 7603 Nov, [facility] [address] [place] [id number] [place] [address] 85156- 0228 Nov, [facility] [address], [place] [address]- 3798 Nov, [facility] [id number] [place] [address] 93421- 0877 Nov, Eczema, unspecified type L30.9 [facility] [address] [address]- 5875 Nov, [facility] [address] [address]- 4106 Nov, Eczema, unspecified type L30.9 ; Cessation of tobacco use in previous 12 months Z87.891 and Weakness of both legs M62.81 [facility] [address] [address]- 9687 Oct, [facility] [address] [place] [id number] [address]- 5900 Oct, [facility] [address] [address]- 0740 Oct, [facility] [address] [address]- 9198 Oct, Chronic viral hepatitis C B18.2 [facility] [address] [place] [id number] [address]- 8257 Sep, [facility] [address] [place] [id number] [place] [address] 54745- 5993 Sep, 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 and Generalized anxiety disorder F41.1 [facility] [address] [place] [id number] [place] [address] 37116- 5916 Sep, [facility] [address] [place] [id number] [place] [address] 08396- 2846 August, [facility] [address] [place] [id number] [place] [address] 63627- 5448 August, Hyperammonemia E72.20 [facility] [address] [place] [id number] [place] [address] 07848- 6595 August, Hyperammonemia E72.20 [facility] [address] [place] [id number] [place] [address] 98286- 9950 August, Hyperammonemia E72.20 and Chronic hepatitis C without hepatic coma B18.2 [facility] [address] [place] [id number] [address]- 8620 August, Chronic viral hepatitis C B18.2 [facility] [address] [place] [id number] [place] [address] 21092- 1547 August, [facility] [address] [place] [id number] [place] [address] 45524- 3189 Jul, Chronic viral hepatitis C B18.2 and Hyperammonemia E72.20 [facility] [address] [place] [id number] [place] [address] 75861- 4888 Jul, Chronic viral hepatitis C B18.2 [facility] [address] [place] [id number] [place] [address] [place] [address]- 8093 13 Jul, 2015 [facility] [address] [place] [address]- 3026 04 Jul, 2015 [facility] [address] [address]- 0316 28 Jun, 2015 [facility] [address] [place] [address]- 2546 23 Jun, 2015 Chronic viral hepatitis C B18.2 and Hyperammonemia E72.20 [facility] [address] [place] [address]- 1064 Jun, [facility] [address] [place] [address]- 6026 18 Jun, 2015 [facility] [address] [address]- 7583 16 Jun, 2015 Chronic viral hepatitis C B18.2 [facility] [address] [place] [address]- 1827 10 Jun, 2015 [facility] [address] [place] [address]- 6716 07 Jun, 2015 Chronic viral hepatitis C B18.2 [facility] [address] [place] [address]- 1706 17 May, 2015 Hepatitis C, chronic B18.2 and Chronic viral hepatitis C B18.2 [facility] [address] [address]- 0541 May, [facility] [address] [place] [address]- 1656 Apr, [facility] [address] [address]- 2546 Apr, Chronic viral hepatitis C B18.2 and Hyperammonemia E72.20 [facility] [address], [place] [address]- 2728 Apr, Chronic viral hepatitis C B18.2 [facility] [address] 57183- 9269 Apr, Hyperammonemia E72.20 [facility] [address] 63992- 7554 Apr, [place] [address] 60063- 1060 Apr, [place] [address] 86258- 5102 Apr, Chronic hepatitis C without hepatic coma B18.2 ; Hyperammonemia E72.20 and Chronic viral hepatitis C B18.2 [place] [address] 20455- 8614 Mar, Shortness of breath R06.02 [place] [address] 85488- 9644 Mar, Mood disorder F39 and Major depressive disorder, recurrent episode, unspecified 296.30 [place] [address] 94656- 1042 Mar, [place] [address] 55489- 5592 Mar, [place] [address] 51803- 6226 15 Mar, 2015 [facility] [address] 13019 -4290 Mar, Seasonal allergies J30.2 ; Shortness of breath R06.02 and Cough R05 [place] [address] 39866- 9090 Mar, Hyperammonemia E72.20 ; Mood disorder F39 and History of alcohol abuse Z87.898 [place] [address] 69412- 8330 Mar, Hyperammonemia E72.20 [facility] [address], [place] [address]- 7886 Mar, [facility] [address] [place] [id number] [place] [address] 32824 2546 Feb, [facility] [address] [place] [id number] [place] [address] 26261- 2756 Feb, [facility] [address] [place] [id number] [place] [address] 28942- 1478 Feb, Hyperammonemia E72.20 [facility] [address] [place] [id number] [place] [address] 47368- 8722 Feb, [facility] [address] [place] [id number] [place] [address] 87688- 8438 Feb, [facility] [address] [place] [id number] [place] [address] 67460- 3595 Feb, [facility] [address] [place] [id number] [place] [address] 83382- 9572 Feb, [facility] [address] [place] [id number] [place] [address] 06022- 4546 Feb, Chronic viral hepatitis C B18.2 [facility] [address] [place] [id number] [place] [address] 75951- 9735 Feb, Chronic viral hepatitis C B18.2 [facility] [address] [place] [id number] [place] [address] 39713 2546 Feb, [facility] [address] [place] [id number] [place] [address] 00063- 8684 Feb, Chronic viral hepatitis C B18.2 and Confusion R41.0 [facility] [address] [place] [address] 06916- 9140 Feb, [facility] [address] [place] [address] 24193- 7133 Jan, [facility] [address], [place] [address]- 6863 Jan, Confusion R41.0 [facility] [address] [place] [id number] [place] [address] 25789- 1429 Jan, [facility] [address] [place] [id number] [place] [address] 38604- 4128 Jan, [facility] [address] [place] [id number] [place] [address] 81991- 8740 Jan, [facility] [address] [place] [id number] [place] [address] 86842- 3218 Jan, [facility] [address] [place] [id number] [place] [address] 25914- 9564 Jan, Chronic viral hepatitis C B18.2 and 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 [facility] [address] [place] [id number] [place] [address] 42833- 2385 Jan, [facility] [address] [place] [id number] [place] [address] 49463- 2238 Jan, [facility] [address] [place] [id number] [place] [address] 84716- 2406 Jan, [facility] [address] [place] [id number] [place] [address] 82914- 7060 Jan, [facility] [id number] [place] [address] 35409- 4644 Jan, Chronic viral hepatitis C B18.2 [facility] [address] [place] [address] 45690- 5602 Jan, [facility] [address] [place] [id number] [place] [address] 95866- 7411 Jan, Back pain at L4-L5 level M54.5 and Confusion R41.0 [facility] [address] [place] [address] 45694- 2889 Jan, [facility] [address] [place] [id number] [place] [address] 64242- 1794 30 Dec, 2014 Chronic viral hepatitis C B18.2 and Flu vaccine need V04.81 [facility] [address] 30037- 7209 30 Dec, 2014 Chronic viral hepatitis C B18.2 [facility] [address] 91535- 0702 Dec, [facility] [address] 23395- 5076 Dec, Polyuria 788.42 [place] [address] 26950- 7626 Dec, Polyuria 788.42 ; Polydipsia 783.5 ; Dizziness 780.4 and Hepatitis C, chronic 070.54 [place] [address] 74671- 1258 Dec, Major depressive disorder, recurrent episode, unspecified 296.30 and Generalized anxiety disorder 300.02 [facility] [address] 47682- 7183 Nov, [place] [address] 29781- 2901 Nov, [facility] [address] [place] [id number] [place] [address] 99534- 0417 Nov, [facility] [address] [place] [id number] [place] [address] 81184- 0137 Oct, [facility] [address] [place] [id number] [place] [address] 45042- 3957 Sep, [facility] [address] 02215- 3802 August, Obsessive-compulsive disorders 300.3 ; Generalized anxiety disorder 300.02 and Major depressive disorder, recurrent episode, unspecified 296.30 [facility] [address] 00952- 8309 August, Chronic hepatitis C without mention of hepatic coma 070.54 ; Hypertension 401.9 and Seasonal allergies 477.9 [facility] [address] [address]- 2066 Jul, [facility] [address] [address]- 3896 Jul, [facility] [id number] [place] [address] 134729- 1176 Jun, [facility] [id number] [place] [address] 083859- 9120 Jun, [facility] [id number] [place] [address] 80455- 8210 May, [facility] [id number] [place] [address] 545117- 9800 May, [facility] [id number] [place] [address] 68027- 3551 May, [facility] [address] [address]- 6469 May, [facility] [address] [address]- 1478 Apr, [facility] [address], [place] [address]- 9983 Apr, [facility] [address] [address]- 5523 Apr, [facility] [address], [place] [address]- 0160 Apr, [facility] [address]- 5856 Apr, [facility] [address] [address]- 2896 Apr, [facility] [address], [place] [address]- 5322 Mar, [facility] [place] [facility] [address] [id number] [place] [address]- 4755 Mar, [facility] [place] [facility] [address] [id number] [place] 6103 Mar, [facility] [place] [facility] [address] [id number] [place] [address]- 1433 Mar, [facility] [place] [facility] [address] [id number] [place] [address]- 0768 Mar, [facility] [place] [facility] [address] [id number] [place] [address]- 0773 Mar, [facility] [place] [facility] [address] [id number] [place] [address]- 5509 Mar, [facility] [place] [facility] [address] [id number] [place] [address]- 7359 Mar, [facility] [place] [facility] [address] [id number] [place] [address]- 1319 Mar, [facility] [place] [facility] [address] [id number] [place] [address]- 4370 Feb, [facility] [place] [facility] [address] [id number] [place] [address]- 3803 Feb, [facility] [place] [facility] [address] [id number] [place] [address]- 8000 Feb, [facility] [place] [facility] [address] [id number] [place] [address] Feb, [facility] [place] [facility] [address] [id number] [place] [address] Feb, [facility] [place] [facility] [address] [id number] [place] [address] Jan, [facility] [place] [facility] [address] [id number] [place] [address] Jan, [facility] [place] [facility] [address] [id number] [place] [address] Jan, [facility] [place] [facility] [address] [id number] [place] [address] Jan, [facility] [place] [facility] [address] [id number] [place] [address] Jan, [facility] [place] [facility] [address] [id number] [place] [address] Jan, [facility] [place] [facility] [address] [id number] [place] [address] Jan, [facility] [place] [facility] [address] [id number] [place] [address] Jan, [facility] [place] [facility] [address] [id number] [place] [address] Jan, [facility] [place] [facility] [address] [id number] [place] [address] Nov, [facility] [place] [facility] [address] [id number] [place] [address] Nov, [facility] [place] [facility] [address] [id number] [place] [address] Nov, [facility] [place] [facility] [address] [id number] [place] [address] Oct, [facility] [place] [facility] [address] [id number] [place] [address] Oct, [facility] [place] [facility] [address] [id number] [place] [address] Oct, [facility] [place] [facility] [address] [id number] [place] [address] Oct, [facility] [place] [facility] [address] [id number] [place] [address] Sep, [facility] [place] [facility] [address] [id number] [place] [address] Sep, [facility] [place] [facility] [address] [id number] [place] [address] Sep, [facility] [place] [facility] [address] [id number] [place] [address] Sep, [facility] [place] [facility] [address] [id number] [place] [address] Sep, [facility] [place] [facility] [address] [id number] [place] [address]- [address] Sep, [facility] [place] [facility] [address] [id number] [place] [address] August, [facility] [place] [facility] [address] [id number] [place] [address] August, [facility] [place] [facility] [address] [id number] [place] [address] Jul, [facility] [place] [facility] [address] [id number] [place] [address] Jul, [facility] [place] [facility] [address] [id number] [place] [address] Jul, [facility] [place] [facility] [address] [id number] [place] [address] Jul, [facility] [place] [facility] [address] [id number] [place] [address] Jul, [facility] [place] [facility] [address] [id number] [place] [address] Jul, [facility] [place] [facility] [address] [id number] [place] [address] Jul, [facility] [place] [facility] [address] [id number] [place] [address] Jul, [facility] [place] [facility] [address] [id number] [place] [address] Jul, [facility] [place] [facility] [address] [id number] [place] [address] 08 Jul, 2013 [facility] [place] [facility] [address] [id number] [place] [address] Jun, [facility] [place] [facility] [address] [id number] [place] [address] Jun, [facility] [place] [facility] [address] [id number] [place] [address] Jun, [facility] [place] [facility] [address] [id number] [place] [address] Jun, [facility] [place] [facility] [address] [id number] [place] [address] May, [facility] [place] [facility] [address] [id number] [place] [address] May, [facility] [place] [facility] [address] [id number] [place] [address] May, [facility] [place] [facility] [address] [address] [id number] [place] [address] May, [facility] [place] [facility] [address] [id number] [place] [address] May, [facility] [place] [facility] [address] [facility] [id number] [place] [address] 10 May, 2013 [facility] [place] [facility] [address] [id number] [place] [address] 16 Mar, 2013 [facility] [place] [facility] [address] [id number] [place] [address] 16 Mar, 2013 [facility] [place] [facility] [address] [id number] [place] [address] 96[address] 16 Mar, 2013 [facility] [place] [facility] [address] [id number] [place] [address] 2796 16 Mar, 2013 [facility] [place] [facility] [address] [facility] [id number] [place] [address] 16 Mar, 2013 [facility] [place] [facility] [address] [id number] [place] [address] 38[address] 16 Mar, 2013 [facility] [place] [facility] [address] [id number] [place] [address] Feb, [facility] [place] [facility] [address] [id number] [place] [address] Feb, [facility] [place] [facility] [address] [id number] [place] [address] Feb, [facility] [place] [facility] [address] [id number] [place] [address] 1004 Feb, [facility] [place] [facility] [address] [id number] [place] [address] Feb, [facility] [place] [facility] [address] [id number] [place] [address] 69[address] Feb, [facility] [place] [facility] [address] [id number], [place] [address] Feb, [facility] [place] [facility] [address] [id number], [place] [address] 07 Feb, 2013 [facility] [place] [facility] [address] [id number], [place] [address] 18 Jan, 2013 [facility] [place] [facility] [address] [id number], [place] [address] 18 Jan, 2013 [facility] [place] [facility] [address] [id number], [place] [address] 17 Jan, 2013 [facility] [place] [facility] [address] [id number], [place] [address] 16 Jan, 2013 [facility] [place] [facility] [address] [id number], [place] [address]28 16 Jan, 2013 [facility] [place] [facility] [address] [id number], [place] [address] 14 Jan, 2013 [facility] [place] [facility] [address] [id number], [place] [address]28 14 Jan, 2013 [facility] [place] [facility] [address] [id number] [place] [address] 5096 11 Jan, 2013 [facility] [place] [facility] [address] [id number] [place] [address] 9653 11 Jan, 2013 [facility] [place] [facility] [address] [id number] [place] [address] 9916 10 Jan, 2013 [facility] [place] [facility] [address] [id number] [place] [address]28 27 Dec, 2012 [facility] [place] [facility] [address] [id number] [place] [address]304 18 Dec, 2012 [facility] [place] [facility] [address] [id number] [place] [address] 9025 18 Dec, 2012 [facility] [place] [facility] [address] [id number] [place] [address] 1694 30 Nov, 2012 [facility] [place] [facility] [address] [id number] [place] [address] 486[address] Nov, [facility] [place] [facility] [address] [id number] [place] [address] 8199 Nov, [facility] [place] [facility] [address] [id number] [place] [address] 8587 Nov, [facility] [place] [facility] [address] [id number] [place] [address] 5488 Nov, [facility] [place] [facility] [address] [id number], [place] [address] 8595 Nov, [facility] [place] [facility] [address] [id number] [place] [address] 2011 Nov, [facility] [place] [facility] [address] [id number] [place] [address]64 14 Nov, 2012 [facility] [place] [facility] [address] [facility] [id number] [place] [address] 07 Nov, 2012 [facility] [place] [facility] [address] [id number] [place] [address] 2541 Nov, [facility] [place] [facility] [address] [id number] [place] [address] 9530 Oct, [facility] [place] [facility] [address] [id number] [place] [address] 8573 Oct, [facility] [place] [facility] [address] [id number] [place] [address] 3602 Oct, [facility] [place] [facility] [address] [id number] [place] [address] 2779 Oct, [facility] [place] [facility] [address] [id number] [place] [address] 3066 Oct, [facility] [place] [facility] [address] [id number] [place] [address] 3300 Oct, [facility] [place] [facility] [address] [id number] [place] [address] 9502 Oct, [facility] [place] [facility] [address] [id number] [place] [address] 4392 Oct, [facility] [place] [facility] [address] [id number] [place] [address] 8[address] Sep, [facility] [place] [facility] [address] [id number] [place] [address] 7045 Sep, [facility] [place] [facility] [address] [id number] [place] [address] 2903 Sep, [facility] [place] [facility] [address] [id number] [place] [address] 0428 Sep, [facility] [place] [facility] [address] [id number] [place] [address] 2068 August, [facility] [place] [facility] [address] [id number] [place] [address] 2546 August, [facility] [place] [facility] [address] [id number] [place] [address] August, [facility] [address] [id number] Jul, [facility] [address] [id number] Jul, [facility] [address] [facility] [id number] [place] [address]46 Jun, [facility] [address] [id number] [place] [address] 8646 May, [facility] [address] [facility] [id number] [place] [address] 2546 May, [facility] [address] [facility] [id number] [place] [address]13 Apr, [facility] [address] [facility] [id number] [place] [address] 9086 Feb, [facility] [address] [facility] [id number] [place] [address] 6128 Feb, [facility] [address] [facility] [id number] [place] [address] 2641 Jan, [facility] [address] [facility] [id number] [place] [address] 7046 Jan, [facility] [address] [facility] [id number], [place] [address]992 Jan, [facility] [address] [facility] [id number] [place] [address]- 4195 Jan, [facility] [address] [facility] [id number], [place] [address]- 2546 Jan, [facility] [place] [facility] [address] [facility] [id number], [place] [address]- 6676 Dec, [facility] [place] [facility] [address] [facility] [id number], [place] [address]- 2546 Dec, [facility] [address] [id number] [id number] Nov, [facility] [place] [facility] [address] [id number] [place] [address]- 7453 Nov, [facility] [place] [facility] [address] [id number] [place] [address]- 8508 Nov, [facility] [place] [facility] [address] [id number] [place] [address]- 9959 Nov, [facility] [place] [facility] [address] [id number] [place] [address]- 2736 August, [facility] [place] [facility] [address] [id number] [place] [address]- 3276 August, [facility] [place] [facility] [address] [id number] [place] [address]- 2601 August, [facility] [place] [facility] [address] [id number] [place] [address]- 8032 Jul, [facility] [place] [facility] [address] [id number] [place] [address]- 2532 May, [facility] [place] [facility] [address] [id number] [place] [address]- 1129 May, [facility] [place] [facility] [address] [id number] [place] [address]- 3517 May, [facility] [place] [facility] [address] [id number] [place] [address]- 3731 Mar, [facility] [place] [facility] [address] [id number] [place] [address]- 3513 Jan, [facility] [place] [facility] [address] [id number] [place] [address]- 6051 Jan, [facility] [place] [facility] [address] [id number] [place] [address]- 9496 Oct, [facility] [place] [facility] [address] [id number] [place] [address]- 4193 August, [facility] [place] [facility] [address] [id number] [place] [address]- 3689 Jan, [facility] [address] [facility] [id number] [place] [address]- 7307 Jan, [facility] [address] [facility] [id number] [place] [address]- 6058 Jan, [facility] [address] [facility] [id number] [place] [address] Jan, IMMUNIZATIONS No Known Immunizations SOCIAL HISTORY Never Assessed REASON FOR VISIT Controlled Med Refill 10/23/17 PLAN OF CARE VITAL SIGNS MEDICATIONS Medication Instructions Dosage Frequency Start Date End Date Duration Status Xanax 2 MG Orally 4 times a day 1 tablet 6h Jun, 28 days Active Tessalon Perles 100 mg Orally Three times a day 1 capsule as needed 8h Oct, Active RESULTS No Results PROCEDURES No Known [...]
--- OUTSIDE RECORDS SUMMARY | 2018-02-08 21:17 | XMS REPORT ---
Author Author ROSIO IRBY Organization [facility] Address [address] [place] [address] Care Team Providers Care Hedis Registered Nurse Rn Name Role Phone ROSIO IRBY Unavailable PROBLEMS Type Condition ICD9-CM Code CFB03-DQ Code Onset Dates Condition Status SNOMED Code Problem History of alcohol abuse Z87.898 Active 253331541 Problem Mood disorder F39 Active 63790396 Problem Generalized anxiety disorder F41.1 Active 92960147 Problem Hypertension, benign I10 Active 40419490 Problem Allergic rhinitis, unspecified allergic rhinitis type J30.9 Active 97278383 Problem Chronic hepatitis C without hepatic coma B18.2 Active 905105174 Problem Obsessive compulsive disorder F42 Active 767484855 Problem Hyperammonemia E72.20 Active 4095859 ALLERGIES No Information ENCOUNTERS Encounter Location Date Diagnosis [place] [address] [address]- [address] Nov, Chronic hepatitis C without hepatic coma B18.2 [place] [address] 91664- 7535 Oct, Bronchitis J40 [place] [address] [place] [id number] [place] [address] 86459- 7159 Oct, Chronic hepatitis C without hepatic coma B18.2 and Cough R05 [facility] [address] [place] [id number] [place] [address] 69821- 8022 Sep, Chronic hepatitis C without hepatic coma B18.2 [facility] [address] [address]- 3737 August, Chronic hepatitis C without hepatic coma B18.2 [facility] [address] [place] [id number] [place] [address] 07516- 3995 Jul, Chronic hepatitis C without hepatic coma B18.2 [facility] [address] [address] 5843 Jul, Generalized anxiety disorder F41.1 ; Mood disorder F39 and History of hepatitis C Z86.19 [facility] [address] [place] [id number] [place] [address] 20817- 8526 Jul, Chronic hepatitis C without hepatic coma B18.2 [facility] [address] [place] [id number] [place] [address] 10743- 1562 Jun, Chronic hepatitis C without hepatic coma B18.2 [facility] [address] [place] [id number] [place] [address] 88002- 7946 Jun, [facility] [address] [place] [id number] [place] [address] 70362- 4210 May, Chronic hepatitis C without hepatic coma B18.2 [facility] [address] [place] [id number] [place] [address] 54611- 3575 May, Hypertension, benign I10 [facility] [address] [place] [id number] [place] [address] 77527- 6648 Apr, Chronic hepatitis C without hepatic coma B18.2 [facility] [address] [place] [id number] [place] [address] 98229- 8921 Apr, Hypertension, benign I10 [facility] [address] [place] [id number] [place] [address] 74183- 0807 Mar, Chronic hepatitis C without hepatic coma B18.2 [facility] [id number] [place] [address] 99696- 0882 Mar, Hypertension, benign I10 [facility] [address] [place] [id number] [place] [address] 76715- 3814 Mar, Encounter for immunization Z23 ; Hypertension, benign I10 and Strain of right Achilles tendon, initial encounter S86.011A [facility] [address] [place] [id number] [place] [address] 18458- 0070 Feb, Chronic hepatitis C without hepatic coma B18.2 [facility] [address], [place] [address]- 2297 Jan, Chronic hepatitis C without hepatic coma B18.2 [facility] [address] [address] Jan, Toe pain, right M79.674 and Cellulitis of foot, right L03.115 [facility] [address] [place] [id number] [place] [address] 90722- 4645 Dec, Chronic hepatitis C without hepatic coma B18.2 [facility] [address] [place] [id number] [place] [address] 69080- 4712 Nov, Chronic hepatitis C without hepatic coma B18.2 and Eczema of both hands L30.9 [facility] [address], [place] [address]- 0346 Nov, [facility] [address] [place] [id number] [place] [address] 58453- 6162 Oct, [facility] [address] [place] [id number] [place] [address] 39944- 3977 Sep, [facility] [address] [place] [id number] [place] [address] 87590- 1583 August, [facility] [address], [place] [address]- 1131 August, [facility] [address] [place] [id number] [place] [address] 63578- 3871 Jul, [facility] [address] [address]- 2251 Jul, [facility] [address] [place] [id number] [place] [address] 10003- 1962 Jun, [facility] [address] 9529 Jun, [facility] [address] [place] [id number] [place] [address] 74004- 3347 May, [facility] [address], [place] [address]- 2026 Apr, Chronic hepatitis C without hepatic coma B18.2 ; Hyperglycemia R73.9 and Hypertension, benign I10 [facility] [address], [place] [address]- 2946 Apr, Chronic hepatitis C without hepatic coma B18.2 ; Mood disorder F39 ; Hypertension, benign I10 and Hyperglycemia R73.9 [facility] [address] [place] [id number] [address]- 3888 Apr, [facility] [address] [place] [id number] [place] [address] 18616- 8616 Apr, [facility] [address] [place] [id number] [place] [address] 14898- 7464 Apr, [facility] [address] [place] [id number] [place] [address] 15410- 9651 Feb, [facility] [id number] [place] [address] 72721- 3059 Feb, [facility] [id number] [place] [address] 87118- 9432 Feb, [facility] [address], [place] [address]- 1838 Feb, [facility] [id number] [place] [address] 32561- 3526 Jan, [facility] [address] [address]- 5531 Jan, Chronic hepatitis C without hepatic coma B18.2 ; Mood disorder F39 ; Encounter for immunization Z23 and Chronic viral hepatitis C B18.2 [facility] [address] [address]- 8355 Jan, [facility] [address] [place] [id number] [place] [address] 48650- 2664 Jan, [facility] [address] [facility] [id number] [address]- 9524 Dec, [facility] [address] [facility] [id number] [address]- 6496 Dec, [facility] [address] [place] [id number] [place] [address] 81567 254 Nov, [facility] [address] [facility] [id number] [place] [address] 65176- 7314 Nov, Weakness of both legs M62.81 [facility] [address] [place] [id number] [place] [address] 91843- 1519 Nov, [facility] [address] [place] [id number] [place] [address] 47130- 2315 Nov, [facility] [address] [place] [id number] [place] [address] 92900- 1558 Nov, [facility] [address] [address]- 7805 Nov, Eczema, unspecified type L30.9 [facility] [address] [address]- 9229 Nov, [facility] [address] [place] [id number] [address]- 1058 Nov, Eczema, unspecified type L30.9 ; Cessation of tobacco use in previous 12 months Z87.891 and Weakness of both legs M62.81 [facility] [address] [facility] [id number] [address]- 3588 Oct, [facility] [address] [place] [id number] [address]- 5116 Oct, [facility] [address] [facility] [id number] [address]- 2548 Oct, [facility] [address] [place] [id number] [address]- 8100 Oct, Chronic viral hepatitis C B18.2 [facility] [address] [place] [id number] [place] [address] 04412- 3430 Sep, [facility] [address] [place] [id number] [place] [address] 05843- 4734 Sep, 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 and Generalized anxiety disorder F41.1 [facility] [address] [place] [id number] [place] [address] 59888- 6553 Sep, [facility] [address] [place] [id number] [place] [address] 26531- 7669 August, [facility] [address] [place] [id number] [place] [address] 68571- 4020 August, Hyperammonemia E72.20 [facility] [address] [place] [id number] [place] [address] 93754- 2628 August, Hyperammonemia E72.20 [facility] [address] [place] [id number] [place] [address] 81645- 3418 August, Hyperammonemia E72.20 and Chronic hepatitis C without hepatic coma B18.2 [facility] [address] [place] [id number] [place] [address] 67642- 9265 August, Chronic viral hepatitis C B18.2 [facility] [address] [place] [id number] [place] [address] 38298- 7948 August, [facility] [address] [place] [id number] [place] [address] 71485- 8723 Jul, Chronic viral hepatitis C B18.2 and Hyperammonemia E72.20 [facility] [address] [place] [id number] [place] [address] 17948- 8636 Jul, Chronic viral hepatitis C B18.2 [facility] [address] [place] [id number] [place] [address] 53169- 8879 Jul, [facility] [address] [place] [id number] [place] [address] 79413- 0876 04 Jul, 2015 [facility] [address], [place] [address]- 2906 28 Jun, 2015 [facility] [address], [place] [address]- 7166 23 Jun, 2015 Chronic viral hepatitis C B18.2 and Hyperammonemia E72.20 [facility] [address] [place] [id number] [place] [address] 72836- 2746 21 Jun, 2015 [facility] [address] [address]- 3223 18 Jun, 2015 [facility] [address] [place] [id number] [address]- 3476 16 Jun, 2015 Chronic viral hepatitis C B18.2 [facility] [address], [place] [address]- 7898 10 Jun, 2015 [facility] [address], [place] [address]- 2834 07 Jun, 2015 Chronic viral hepatitis C B18.2 [facility] [address] [address]- 8496 17 May, 2015 Chronic viral hepatitis C B18.2 and Hepatitis C, chronic B18.2 [facility] [address] [address]- 1186 May, [facility] [address], [place] [address]- 2541 Apr, [facility] [address], [place] [address]- 2549 Apr, Chronic viral hepatitis C B18.2 and Hyperammonemia E72.20 [facility] [address] [address]- 2546 Apr, Chronic viral hepatitis C B18.2 [facility] [address], [place] [address]- 9566 Apr, Hyperammonemia E72.20 [facility] [address] [place] [id number] [place] [address] 64381- 2878 Apr, [facility] [address] 47935- 4160 Apr, [facility] [address] [place] [id number] [place] [address] 50562- 8436 Apr, Chronic hepatitis C without hepatic coma B18.2 ; Chronic viral hepatitis C B18.2 and Hyperammonemia E72.20 [facility] [address] [place] [id number] [place] [address] 15712- 5096 Mar, Shortness of breath R06.02 [facility] [address] [place] [id number] [place] [address] 89107- 8205 Mar, Mood disorder F39 and Major depressive disorder, recurrent episode, unspecified 296.30 [facility] [address] 43278- 9563 Mar, [facility] [address] [place] [id number] [place] [address] 28465- 4592 Mar, [facility] [address] [place] [id number] [place] [address] 28130- 4249 Mar, [facility] [address] [place] [id number] [place] [address] 21957 -4309 Mar, Seasonal allergies J30.2 ; Shortness of breath R06.02 and Cough R05 [facility] [address] [place] [id number] [place] [address] 93749- 1262 Mar, Hyperammonemia E72.20 ; Mood disorder F39 and History of alcohol abuse Z87.898 [facility] [address] [place] [id number] [place] [address] 67384- 7688 Mar, Hyperammonemia E72.20 [facility] [address] [place] [id number] [place] [address] 90763- 0478 Mar, [facility] [address] [address]- 0101 Feb, [facility] [address] [id number] [place] [address] 30133- 4585 Feb, [facility] [address] [place] [id number] [place] [address] 81023- 9560 Feb, Hyperammonemia E72.20 [facility] [address] [place] [id number] [place] [address] 93528- 5759 Feb, [facility] [address] [place] [id number] [place] [address] 37476- 6935 Feb, [facility] [address] [place] [id number] [place] [address] 43619- 2318 Feb, [facility] [address] [place] [id number] [place] [address] 45146- 0035 Feb, [facility] [address] [place] [id number] [place] [address] 42585- 0531 Feb, Chronic viral hepatitis C B18.2 [facility] [address] [place] [id number] [place] [address] 96161- 9843 Feb, Chronic viral hepatitis C B18.2 [facility] [address] [place] [id number] [place] [address] 23456- 4595 Feb, [facility] [address] [place] [id number] [place] [address] 15762- 5987 Feb, Chronic viral hepatitis C B18.2 and Confusion R41.0 [facility] [id number] [place] [address] 07997- 4341 Feb, [facility] [address] [place] [id number] [place] [address] 01732- 5245 Jan, [facility] [address] [place] [id number] [place] [address] 35092- 7137 Jan, Confusion R41.0 [facility] [address] [address]- 6486 Jan, [facility] [address], [place] [address]- 2698 Jan, [facility] [address], [place] [address]- 9646 Jan, [facility] [address] [place] [id number] [place] [address] 82233- 8606 Jan, [facility] [id number] [place] [address] 00565- 6877 Jan, Chronic viral hepatitis C B18.2 and 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 [facility] [address] [address]- 7499 Jan, [facility] [id number] [place] [address] 30709- 9684 Jan, [facility] [id number] [place] [address] 44332- 3566 Jan, [facility] [id number] [place] [address] 05745- 7985 Jan, [facility] [address] [address]- 4917 Jan, Chronic viral hepatitis C B18.2 [facility] [id number] [place] [address] 03955- 4510 Jan, [facility] [address] [address]- 9521 Jan, Back pain at L4-L5 level M54.5 and Confusion R41.0 [facility] [address] [address]- 4371 Jan, [facility] [address] [address]- 6628 Dec, Chronic viral hepatitis C B18.2 and Flu vaccine need V04.81 [facility] [address] [place] [id number] [place] [address] 61955- 7745 30 Dec, 2014 Chronic viral hepatitis C B18.2 [facility] [address] [place] [place] [id number] [place] [address] 32740- 5335 28 Dec, 2014 [facility] [address] [place] [id number] [place] [address] 92433- 8830 Dec, Polyuria 788.42 [facility] [address] 93885- 3817 21 Dec, 2014 Polyuria 788.42 ; Polydipsia 783.5 ; Dizziness 780.4 and Hepatitis C, chronic 070.54 [place] [address] [place] [id number] [place] [address] 19875- 4575 10 Dec, 2014 Major depressive disorder, recurrent episode, unspecified 296.30 and Generalized anxiety disorder 300.02 [facility] [address] [id number] [place] [address] 38628- 9893 Nov, [facility] [id number] [place] [address] 66432- 0588 Nov, [facility] [id number] [place] [address] 49928- 6202 Nov, [facility] [id number] [place] [address] 35698- 5253 Oct, [facility] [id number] [place] [address] 57803- 4816 Sep, [facility] [id number] [place] [address] 04583- 6555 August, Obsessive-compulsive disorders 300.3 ; Generalized anxiety disorder 300.02 and Major depressive disorder, recurrent episode, unspecified 296.30 [facility] [address] [id number] [place] [address] 29821- 4644 August, Chronic hepatitis C without mention of hepatic coma 070.54 ; Hypertension 401.9 and Seasonal allergies 477.9 [place] [address] [id number] [place] [address]- 3327 14 Jul, 2014 [facility] [place] [facility] [address] [id number] [place] [address]- 2188 Jul, [facility] [place] [facility] [address] [id number] [place] [address]- 4132 Jun, [facility] [place] [facility] [address] [id number] [place] [address]- 3994 Jun, [facility] [place] [facility] [address] [id number] [place] [address]- 2194 May, [facility] [place] [facility] [address] [id number] [place] [address]- 4955 May, [facility] [place] [facility] [address] [id number] [place] [address]- 5840 May, [facility] [place] [facility] [address] [id number] [place] [address]- 1874 May, [facility] [place] [facility] [address] [id number] [place] [address]- 7530 Apr, [facility] [place] [facility] [address] [id number] [place] [address]- 3776 Apr, [facility] [place] [facility] [address] [id number] [place] [address]- 9588 Apr, [facility] [place] [facility] [address] [id number] [place] [address] Apr, [facility] [place] [facility] [address] [id number] [place] [address] Apr, [facility] [place] [facility] [address] [id number] [place] [address] Apr, [facility] [place] [facility] [address] [id number] [place] [address] Mar, [facility] [place] [facility] [address] [id number] [place] [address] Mar, [facility] [place] [facility] [address] [id number] [place] [address] Mar, [facility] [place] [facility] [address] [id number] [place] [address] Mar, [facility] [place] [facility] [address] [id number] [place] [address] Mar, [facility] [place] [facility] [address] [id number] [place] [address] Mar, [facility] [place] [facility] [address] [id number] [place] [address] Mar, [facility] [place] [facility] [address] [id number] [place] [address] Mar, [facility] [place] [facility] [address] [id number] [place] [address] Mar, [facility] [place] [facility] [address] [id number] [place] [address] Feb, [facility] [place] [facility] [address] [id number] [place] [address] Feb, [facility] [place] [facility] [address] [id number] [place] [address] Feb, [facility] [place] [facility] [address] [id number] [place] [address] Feb, [facility] [place] [facility] [address] [id number] [place] [address] Feb, [facility] [place] [facility] [address] [id number] [place] [address] Jan, [facility] [place] [facility] [address] [id number] [place] [address] Jan, [facility] [place] [facility] [address] [id number] [place] [address] Jan, [facility] [place] [facility] [address] [id number] [place] [address] Jan, [facility] [place] [facility] [address] [id number] [place] [address] Jan, [facility] [place] [facility] [address] [id number] [place] Jan, [facility] [place] [facility] [address] [id number] [place] [address] Jan, [facility] [place] [facility] [address] [id number] [place] [address] Jan, [facility] [place] [facility] [address] [id number] [place] [address] Jan, [facility] [place] [facility] [address] [id number] [place] [address] Nov, [facility] [place] [facility] [address] [id number] [place] [address] Nov, [facility] [place] [facility] [address] [id number] [place] [address] Nov, [facility] [place] [facility] [address] [id number] [place] [address] Oct, [facility] [place] [facility] [address] [id number] [place] [address] Oct, [facility] [place] [facility] [address] [id number] [place] [address] Oct, [facility] [place] [facility] [address] [id number] [place] [address] Oct, [facility] [place] [facility] [address] [id number] [place] [address] Sep, [facility] [place] [facility] [address] [id number] [place] [address] Sep, [facility] [place] [facility] [address] [id number] [place] [id number] [address] Sep, [facility] [place] [facility] [address] [id number] [place] [address] Sep, [facility] [place] [facility] [address] [id number] [place] [address] Sep, [facility] [place] [facility] [address] [id number] [place] [address] Sep, [facility] [place] [facility] [address] [id number] [place] [address] August, [facility] [place] [facility] [address] [id number] [place] [address] August, [facility] [place] [facility] [address] [id number] [place] [address] Jul, [facility] [place] [facility] [address] [id number] [place] [address] Jul, [facility] [place] [facility] [address] [id number] [place] [address] Jul, [facility] [place] [facility] [address] [id number] [place] [address] Jul, [facility] [place] [facility] [address] [id number] [place] [address] Jul, [facility] [place] [facility] [address] [id number] [place] [address] Jul, [facility] [place] [facility] [address] [id number] [place] [address] Jul, [facility] [place] [facility] [address] [id number] [place] [address] Jul, [facility] [place] [facility] [address] [id number] [place] [address]- [address]266 Jul, [facility] [place] [facility] [address] [id number] [place] [address] Jul, [facility] [place] [facility] [address] [id number] [place] [address] Jun, [facility] [place] [facility] [address] [id number] [place] [address] Jun, [facility] [place] [facility] [address] [id number] [place] [address] Jun, [facility] [place] [facility] [address] [id number] [place] [address] Jun, [facility] [place] [facility] [address] [id number] [place] [address] May, [facility] [place] [facility] [address] [id number] [place] [address] May, [facility] [place] [facility] [address] [id number] [place] [address] May, [facility] [place] [facility] [address] [id number] [place] [address] May, [facility] [place] [facility] [address] [id number] [place] [address] May, [facility] [place] [facility] [address] [id number] [place] [address] 10 May, 2013 [facility] [place] [facility] [address] [id number] [place] [address] 16 Mar, 2013 [facility] [place] [facility] [address] [id number] [place] [address] 2546 16 Mar, 2013 [facility] [place] [facility] [address] [id number] [place] [address]46 16 Mar, 2013 [facility] [place] [facility] [address] [id number] [place] [address]46 16 Mar, 2013 [facility] [place] [facility] [address] [id number] [place] [address]46 16 Mar, 2013 [facility] [place] [facility] [address] [id number] [place] [address] 16 Mar, 2013 [facility] [place] [facility] [address] [id number] [place] [address] 9[address] Feb, [facility] [place] [facility] [address] [id number] [place] [address] 38[address] Feb, [facility] [place] [facility] [address] [id number] [place] [address] 47[address] Feb, [facility] [place] [facility] [address] [id number] [place] [address] 27[address] Feb, [facility] [place] [facility] [address] [id number] [place] [address] 4[address] Feb, [facility] [place] [facility] [address] [id number] [place] [address] 2818 Feb, [facility] [place] [facility] [address] [id number] [place] [address]158 Feb, [facility] [place] [facility] [address] [id number], [place] [address] Feb, [facility] [place] [facility] [address] [id number] [place] [address] 18 Jan, 2013 [facility] [place] [facility] [address] [id number], [place] [address] 18 Jan, 2013 [facility] [place] [facility] [address] [id number], [place] [address] 17 Jan, 2013 [facility] [place] [facility] [address] [id number], [place] [address] 16 Jan, 2013 [facility] [place] [facility] [address] [id number], [place] [address]35 16 Jan, 2013 [facility] [place] [facility] [address] [id number], [place] [address] 14 Jan, 2013 [facility] [place] [facility] [address] [id number] [address]57 14 Jan, 2013 [facility] [place] [facility] [address] [id number], [place] [address] Jan, [facility] [place] [facility] [address] [id number] [place] [address] 8880 Jan, [facility] [place] [facility] [address] [id number] [place] [address] 9516 Jan, [facility] [place] [facility] [address] [id number] [place] [address] 0715 Dec, [facility] [place] [facility] [address] [id number] [place] [address] 5[address] Dec, [facility] [place] [facility] [address] [id number] [place] [address] Dec, [facility] [place] [facility] [address] [id number] [place] [address] Nov, [facility] [place] [facility] [address] [id number] [place] [address] 4367 Nov, [facility] [place] [facility] [address] [id number] [place] [address] Nov, [facility] [place] [facility] [address] [id number] [place] [address] Nov, [facility] [place] [facility] [address] [id number] [place] [address] 2744 Nov, [facility] [place] [facility] [address] [id number] [place] [address] 1677 Nov, [facility] [place] [facility] [address] [id number] [place] [address] 9[address] Nov, [facility] [place] [facility] [address] [id number] [place] [address] Nov, [facility] [place] [facility] [address] [id number] [place] [address]- 3667 Nov, [facility] [place] [facility] [address] [id number] [place] [address] 9548 Nov, [facility] [place] [facility] [address] [id number] [place] [address] Oct, [facility] [address] [id number] [place] [address] Oct, [facility] [place] [facility] [address] [id number] [place] [address] Oct, [facility] [address] [id number] [place] [address] 2421 Oct, [facility] [place] [facility] [address] [id number] [place] [address] 4425 Oct, [facility] [address] [id number] [place] [address] 3[address] Oct, [facility] [place] [facility] [address] [id number] [place] [address] 0034 Oct, [facility] [address] [id number] [place] [address] 9745 Oct, [facility] [address] [id number] [place] [address] 3703 Sep, [facility] [address] [id number] [place] [address] 9670 Sep, [facility] [address] [id number] [place] [address] 8175 Sep, [facility] [place] [facility] [address] [id number] [place] [address] 6160 Sep, [facility] [place] [facility] [address] [id number] [place] [address] 5729 August, [facility] [place] [facility] [address] [id number] [place] [address] 6380 August, [facility] [place] [facility] [address] [id number] [place] [address] 8086 August, [facility] [address] [id number] Jul, [facility] [address] [id number] Jul, 2012 [facility] [address] [id number] [place] [address] 8610 Jun, [facility] [address] [id number] [place] [address]- 3875 May, [facility] [address] [id number] [place] [address]- 2472 May, [facility] [address] [id number] [place] [address]- 1316 Apr, [facility] [address] [id number] [place] [address]- 5581 Feb, [facility] [address] [id number] [place] [address]- 4234 Feb, [facility] [address] [id number] [place] [address]- 2161 Jan, [facility] [address] [id number] [place] [address]- 0631 Jan, [facility] [address] [id number] [place] [address]- 5754 Jan, [facility] [address] [id number] [place] [address]- 3256 Jan, [facility] [address] [id number] [place] [address]- 3319 Jan, [facility] [address] [id number], [place] [address]- [address]234 Dec, [facility] [address] [id number], [place] [address]697 Dec, [facility] [address] [id number] [id number] Nov, [facility] [address] [id number] [place] [address]- 6099 Nov, [facility] [place] [facility] [address] [id number] [place] [address]- 9035 Nov, [facility] [address] [id number] [place] [address]- 1321 Nov, [facility] [place] [facility] [address] [id number] [place] [address]- 6077 August, [facility] [place] [facility] [address] [id number] [place] [address]- 8591 August, [facility] [place] [facility] [address] [id number] [place] [address]- 7623 August, [facility] [place] [facility] [address] [id number] [place] [address]- 6273 Jul, [facility] [place] [facility] [address] [id number] [place] [address]- 5197 May, [facility] [place] [facility] [address] [id number] [place] [address]- 0260 May, [facility] [place] [facility] [address] [id number] [place] [address]- 2828 May, [facility] [place] [facility] [address] [id number] [place] [address]- [address]33 Mar, [facility] [place] [facility] [address] [id number] [place] [address]- 5125 Jan, [facility] [place] [facility] [address] [id number] [place] [address]- 8614 Jan, [facility] [place] [facility] [address] [id number] [place] [address]- 3440 Oct, [facility] [place] [facility] [address] [id number] [place] [address]- 3132 August, [facility] [place] [facility] [address] [id number] [place] [address]- 9719 Jan, [facility] [place] [facility] [address] [id number] [place] [address]- 9362 Jan, [facility] [address] [facility] [id number] [place] [address] 2679 Jan, [facility] [address] [facility] [id number] [place] [address] Jan, IMMUNIZATIONS No Known Immunizations SOCIAL HISTORY Never Assessed REASON FOR VISIT Controlled Med Refill09/25/17 PLAN OF CARE VITAL SIGNS MEDICATIONS Medication [...]
--- OUTSIDE RECORDS SUMMARY | 2018-02-08 21:18 | XMS REPORT ---
Author Author ROSIO IRBY Organization [facility] Address [address] [place] [address] Care Team Providers Care Market Intelligence Consultant Name Role Phone ROSIO IRBY Unavailable PROBLEMS Type Condition ICD9-CM Code BDM46-UL Code Onset Dates Condition Status SNOMED Code Problem History of alcohol abuse Z87.898 Active 976905407 Problem Mood disorder F39 Active 68359768 Problem Generalized anxiety disorder F41.1 Active 37616747 Problem Hypertension, benign I10 Active 46846547 Problem Allergic rhinitis, unspecified allergic rhinitis type J30.9 Active 00167965 Problem Chronic hepatitis C without hepatic coma B18.2 Active 353678890 Problem Obsessive compulsive disorder F42 Active 608869694 Problem Hyperammonemia E72.20 Active 2060847 ALLERGIES No Information ENCOUNTERS Encounter Location Date Diagnosis [place] [address] [address]- 8973 Nov, Chronic hepatitis C without hepatic coma B18.2 [place] [address] 40085- 9984 Oct, Bronchitis J40 [facility] [address] [place] [id number] [place] [address] 43945- 3640 Oct, Chronic hepatitis C without hepatic coma B18.2 and Cough R05 [facility] [address] [place] [address] [id number] [place] [address] 51199- 7573 Sep, Chronic hepatitis C without hepatic coma B18.2 [facility] [address] 15763- 0693 August, Chronic hepatitis C without hepatic coma B18.2 [facility] [id number] [place] [address] 83646- 2980 Jul, Chronic hepatitis C without hepatic coma B18.2 [facility] [address], [place] [address] 5885 Jul, Generalized anxiety disorder F41.1 ; Mood disorder F39 and History of hepatitis C Z86.19 [facility] [id number] [place] [address] 18000- 4041 Jul, Chronic hepatitis C without hepatic coma B18.2 [facility] [id number] [place] [address] 56095- 8233 Jun, Chronic hepatitis C without hepatic coma B18.2 [facility] [address] [place] [id number] [place] [address] 87380- 7556 Jun, [facility] [address] [id number] [place] [address] 31968- 1445 May, Chronic hepatitis C without hepatic coma B18.2 [facility] [id number] [place] [address] 95235- 5229 May, Hypertension, benign I10 [facility] [address] [place] [id number] [place] [address] 79794- 5406 Apr, Chronic hepatitis C without hepatic coma B18.2 [facility] [id number] [place] [address] 42864- 7590 Apr, Hypertension, benign I10 [facility] [address] [place] [address] [id number] [place] [address] 36014- 5526 Mar, Chronic hepatitis C without hepatic coma B18.2 [facility] [id number] [place] [address] 18086- 5431 Mar, Hypertension, benign I10 [facility] [address] [id number] [place] [address] 75989- 5399 Mar, Hypertension, benign I10 ; Encounter for immunization Z23 and Strain of right Achilles tendon, initial encounter S86.011A [facility] [id number] [place] [address] 60425- 8520 Feb, Chronic hepatitis C without hepatic coma B18.2 [facility] [address], [place] [address]- 0290 Jan, Chronic hepatitis C without hepatic coma B18.2 [facility] [address], [place] [address] Jan, Toe pain, right M79.674 and Cellulitis of foot, right L03.115 [facility] [address] [address] [id number] [place] [address] 44101- 5831 Dec, Chronic hepatitis C without hepatic coma B18.2 [facility] [address] [id number] [place] [address] 68136- 5325 Nov, Chronic hepatitis C without hepatic coma B18.2 and Eczema of both hands L30.9 [facility] [address], [place] [address]- 9768 Nov, [facility] [address] [place] [id number] [place] [address] 72896- 7553 Oct, [facility] [address] [place] [address] [id number] [place] [address] 56578- 7622 Sep, [facility] [address] [place] [address] [id number] [place] [address] 22835- 7146 August, [facility] [address], [place] [address]- 3810 August, [facility] [address] [place] [address] [id number] [place] [address] 75648- 9820 Jul, [facility] [address], [place] [address]- 1093 Jul, [facility] [address] [place] [id number] [place] [address] 96668- 3987 Jun, [facility] [address] [address] 6311 Jun, [facility] [address] [place] [id number] [place] [address] 96988- 2691 May, [facility] [address], [place] [address]- 3275 Apr, Chronic hepatitis C without hepatic coma B18.2 ; Hyperglycemia R73.9 and Hypertension, benign I10 [facility] [address], [place] [address] 1996 Apr, Chronic hepatitis C without hepatic coma B18.2 ; Mood disorder F39 ; Hypertension, benign I10 and Hyperglycemia R73.9 [facility] [address] [place] [id number] [address]- 4296 Apr, [facility] [address] [place] [id number] [place] [address] 85114- 2458 Apr, [facility] [address] [place] [id number] [place] [address] 29054- 7008 Apr, [facility] [address] [place] [id number] [place] [address] 35583- 7067 Feb, [facility] [id number] [place] [address] 73602- 6649 Feb, [facility] [id number] [place] [address] 57194- 2305 Feb, [facility] [address], [place] [address]- 2463 Feb, [facility] [id number] [place] [address] 19326- 8456 Jan, [facility] [address], [place] [address]- 4753 Jan, Chronic hepatitis C without hepatic coma B18.2 ; Mood disorder F39 ; Encounter for immunization Z23 and Chronic viral hepatitis C B18.2 [facility] [address], [place] [address]- 1272 Jan, [facility] [address] [place] [id number] [place] [address] 31893- 5150 Jan, [facility] [address] [facility] [id number] [address]- 3061 Dec, [facility] [address] [facility] [id number] [address]- 1016 Dec, [facility] [address] [place] [id number] [place] [address] 46727 2540 Nov, [facility] [address] [facility] [id number] [place] [address] 14034- 9598 Nov, Weakness of both legs M62.81 [facility] [address] [place] [id number] [place] [address] 15498- 1176 Nov, [facility] [address] [place] [id number] [place] [address] 47363- 7895 Nov, [facility] [address] [place] [id number] [place] [address] 10937- 3467 Nov, [facility] [address], [place] [address]- 0177 Nov, Eczema, unspecified type L30.9 [facility] [address], [place] [address]- 4965 Nov, [facility] [address] [place] [id number] [address]- 9330 Nov, Eczema, unspecified type L30.9 ; Cessation of tobacco use in previous 12 months Z87.891 and Weakness of both legs M62.81 [facility] [address] [facility] [id number] [address]- 9532 Oct, [facility] [address] [place] [id number], [place] [address]- 0446 Oct, [facility] [address] [facility] [id number], [place] [address]- 2540 Oct, [facility] [address] [place] [id number], [place] [address]- 2243 Oct, Chronic viral hepatitis C B18.2 [facility] [address] [place] [id number] [place] [address] 07837- 6686 Sep, [facility] [address] [place] [id number] [place] [address] 86982- 7599 Sep, 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 and Generalized anxiety disorder F41.1 [facility] [address] [place] [id number] [place] [address] 52040- 4169 Sep, [facility] [address] [place] [id number] [place] [address] 60838- 1638 August, [facility] [address] [place] [id number] [place] [address] 78478- 3255 August, Hyperammonemia E72.20 [facility] [address] [place] [id number] [place] [address] 75812- 8953 August, Hyperammonemia E72.20 [facility] [address] [place] [id number] [place] [address] 29370- 5290 August, Hyperammonemia E72.20 and Chronic hepatitis C without hepatic coma B18.2 [facility] [address] [place] [id number] [place] [address] 96870- 1164 August, Chronic viral hepatitis C B18.2 [facility] [address] [place] [id number] [place] [address] 42518- 1319 August, [facility] [address] [place] [id number] [place] [address] 21320- 3613 Jul, Chronic viral hepatitis C B18.2 and Hyperammonemia E72.20 [facility] [address] [place] [id number] [place] [address] 09213- 2237 Jul, Chronic viral hepatitis C B18.2 [facility] [address] [place] [id number] [place] [address] 30068- 2494 Jul, [facility] [address] [place] [id number] [place] [address] 12653- 6231 04 Jul, 2015 [facility] [address], [place] [address]- 5546 28 Jun, 2015 [facility] [address], [place] [address]- 2796 23 Jun, 2015 Chronic viral hepatitis C B18.2 and Hyperammonemia E72.20 [facility] [address] [place] [address] 49061- 3346 21 Jun, 2015 [facility] [address], [place] [address]- 8425 18 Jun, 2015 [facility] [address] [place] [id number] [address]- 0795 16 Jun, 2015 Chronic viral hepatitis C B18.2 [facility] [address], [place] [address]- 7616 10 Jun, 2015 [facility] [address], [place] [address]- 2540 07 Jun, 2015 Chronic viral hepatitis C B18.2 [facility] [address], [place] [address]- 4954 17 May, 2015 Hepatitis C, chronic B18.2 and Chronic viral hepatitis C B18.2 [facility] [address], [place] [address]- 0756 May, [facility] [address], [place] [address] 2544 Apr, [facility] [address], [place] [address] 2540 Apr, Chronic viral hepatitis C B18.2 and Hyperammonemia E72.20 [facility] [address], [place] [address]- 2546 Apr, Chronic viral hepatitis C B18.2 [facility] [address], [place] [address]- 4721 Apr, Hyperammonemia E72.20 [facility] [address] [place] [id number] [place] [address] 62979- 1360 Apr, [facility] [address] 33354- 3246 Apr, [facility] [address] [place] [id number] [place] [address] 88579- 6977 Apr, Chronic hepatitis C without hepatic coma B18.2 ; Hyperammonemia E72.20 and Chronic viral hepatitis C B18.2 [facility] [address] [place] [id number] [place] [address] 03911- 8312 Mar, Shortness of breath R06.02 [place] [address] [place] [id number] [place] [address] 13938- 7548 Mar, Mood disorder F39 and Major depressive disorder, recurrent episode, unspecified 296.30 [facility] [address] 26807- 4448 Mar, [facility] [address] [place] [id number] [place] [address] 50864- 0916 Mar, [facility] [address] [place] [id number] [place] [address] 27659- 2791 Mar, [facility] [address] [place] [id number] [place] [address] 05180 -1978 Mar, Seasonal allergies J30.2 ; Shortness of breath R06.02 and Cough R05 [facility] [address] [place] [id number] [place] [address] 16755- 4739 Mar, Hyperammonemia E72.20 ; Mood disorder F39 and History of alcohol abuse Z87.898 [facility] [address] [place] [id number] [place] [address] 28683- 9405 Mar, Hyperammonemia E72.20 [facility] [address] [place] [id number] [place] [address] 69043- 7641 Mar, [facility] [address], [place] [address]- 8686 Feb, [facility] [address] [place] [id number] [place] [address] 71112- 1504 Feb, [facility] [address] [place] [id number] [place] [address] 21445- 4842 Feb, Hyperammonemia E72.20 [facility] [address] [place] [id number] [place] [address] 37755- 7485 Feb, [facility] [address] [place] [id number] [place] [address] 65834- 9090 Feb, [facility] [address] [place] [id number] [place] [address] 53980- 4561 Feb, [facility] [address] [place] [id number] [place] [address] 59212- 1208 Feb, [facility] [address] [place] [id number] [place] [address] 13507- 8126 Feb, Chronic viral hepatitis C B18.2 [facility] [address] [place] [id number] [place] [address] 90986- 6077 Feb, Chronic viral hepatitis C B18.2 [facility] [address] [place] [id number] [place] [address] 14561- 2022 Feb, [facility] [address] [place] [id number] [place] [address] 75373- 4304 Feb, Chronic viral hepatitis C B18.2 and Confusion R41.0 [facility] [address] [place] [address] 48645- 5101 Feb, [facility] [address] [place] [id number] [place] [address] 56262- 4156 Jan, [facility] [address] [place] [id number] [place] [address] 73001- 7578 Jan, Confusion R41.0 [facility] [address], [place] [address]- 1405 Jan, [facility] [address], [place] [address]- 2112 Jan, [facility] [address], [place] [address]- 0515 Jan, [facility] [address] [place] [id number] [place] [address] 47553- 2536 Jan, [facility] [address] [place] [address] 01826- 6368 Jan, Chronic viral hepatitis C B18.2 and 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 [facility] [address], [place] [address]- 1214 Jan, [facility] [address] [place] [address] 44451- 4114 Jan, [facility] [address] [place] [address] 12891- 9820 Jan, [facility] [address] [place] [address] 98679- 0491 Jan, [facility] [address], [place] [address]- 6042 Jan, Chronic viral hepatitis C B18.2 [facility] [address] [place] [address] 38797- 6895 Jan, [facility] [address], [place] [address]- 2295 Jan, Back pain at L4-L5 level M54.5 and Confusion R41.0 [facility] [address], [place] [address]- 3645 Jan, [facility] [address], [place] [address]- 5340 Dec, Chronic viral hepatitis C B18.2 and Flu vaccine need V04.81 [facility] [address] [place] [id number] [place] [address] 79621- 4024 30 Dec, 2014 Chronic viral hepatitis C B18.2 [facility] [address] [place] [id number] [place] [address] 21905- 9931 28 Dec, 2014 [facility] [address] [place] [id number] [place] [address] 95908- 1218 Dec, Polyuria 788.42 [facility] [address] 93776- 9740 21 Dec, 2014 Polyuria 788.42 ; Polydipsia 783.5 ; Dizziness 780.4 and Hepatitis C, chronic 070.54 [place] [address] [place] [id number] [place] [address] 73174- 5705 10 Dec, 2014 Major depressive disorder, recurrent episode, unspecified 296.30 and Generalized anxiety disorder 300.02 [facility] [address] [place] [id number] [place] [address] 73791- 1277 Nov, [facility] [address] [place] [id number] [place] [address] 03729- 8931 Nov, [facility] [address] [place] [id number] [place] [address] 67361- 7153 Nov, [facility] [address] [place] [id number] [place] [address] 96131- 9726 Oct, [facility] [address] [place] [id number] [place] [address] 51735- 6934 Sep, [facility] [address] [place] [id number] [place] [address] 34178- 0382 August, Obsessive-compulsive disorders 300.3 ; Generalized anxiety disorder 300.02 and Major depressive disorder, recurrent episode, unspecified 296.30 [facility] [address] [place] [id number] [place] [address] 53539- 2334 August, Chronic hepatitis C without mention of hepatic coma 070.54 ; Hypertension 401.9 and Seasonal allergies 477.9 [place] [address] [id number] [place] [address]- 5826 14 Jul, 2014 [facility] [place] [facility] [address] [id number] [place] [address]- 0312 Jul, [facility] [place] [facility] [address] [id number] [place] [address]- 5967 Jun, [facility] [place] [facility] [address] [id number] [place] [address]- 4135 Jun, [facility] [place] [facility] [address] [id number] [place] [address]- 7558 May, [facility] [place] [facility] [address] [id number] [place] [address]- 5042 May, [facility] [place] [facility] [address] [id number] [place] [address]- 6891 May, [facility] [place] [facility] [address] [id number] [place] [address]- 2275 May, [facility] [place] [facility] [address] [id number] [place] [address]- 0243 Apr, [facility] [place] [facility] [address] [id number] [place] [address]- 2143 Apr, [facility] [place] [facility] [address] [id number] [place] [address]- 1935 Apr, [facility] [place] [facility] [address] [id number] [place] [address]- 4055 Apr, [facility] [place] [facility] [address] [id number] [place] [address]- 9111 Apr, [facility] [place] [facility] [address] [id number] [place] [address]- 2365 Apr, [facility] [place] [facility] [address] [id number] [place] 1201 Mar, [facility] [place] [facility] [address] [id number] [place] [address]- 5473 Mar, [facility] [place] [facility] [address] [id number] [place] [address]- 7138 Mar, [facility] [place] [facility] [address] [id number] [place] 7545 Mar, [facility] [place] [facility] [address] [id number] [place] [address]- 1019 Mar, [facility] [place] [facility] [address] [id number] [place] [address]- 9805 Mar, [facility] [place] [facility] [address] [id number] [place] [address]- 7827 Mar, [facility] [place] [facility] [address] [id number] [place] [address]- 5529 Mar, [facility] [place] [facility] [address] [id number] [place] [address]- 9191 Mar, [facility] [place] [facility] [address] [id number] [place] [address]- 3207 Feb, [facility] [place] [facility] [address] [id number] [place] [address]- 4769 Feb, [facility] [place] [facility] [address] [id number] [place] [address]- 4276 Feb, [facility] [place] [facility] [address] [id number] [place] [address]- 0086 Feb, [facility] [place] [facility] [address] [id number] [place] [address]- 9990 Feb, [facility] [place] [facility] [address] [id number] [place] [address]- 8733 Jan, [facility] [place] [facility] [address] [id number] [place] [address]- 3800 Jan, [facility] [place] [facility] [address] [id number] [place] [address]- 2423 Jan, [facility] [place] [facility] [address] [id number] [place] [address]- 9382 Jan, [facility] [place] [facility] [address] [id number] [place] [address]- 2658 Jan, [facility] [place] [facility] [address] [id number] [place] [address]- 4776 Jan, [facility] [place] [facility] [address] [id number] [place] [address]- 5451 Jan, [facility] [place] [facility] [address] [id number] [place] [address]- 9540 Jan, [facility] [place] [facility] [address] [id number] [place] [address]- 9833 Jan, [facility] [place] [facility] [address] [id number] [place] [address]- 9282 Nov, [facility] [place] [facility] [address] [id number] [place] [address]- 6273 Nov, [facility] [place] [facility] [address] [id number] [place] [address] Nov, [facility] [place] [facility] [address] [id number] [place] [address] Oct, [facility] [place] [facility] [address] [id number] [place] [address] Oct, [facility] [place] [facility] [address] [id number] [place] [address] Oct, [facility] [place] [facility] [address] [id number] [place] [address] Oct, [facility] [place] [facility] [address] [id number] [place] [address] Sep, [facility] [place] [facility] [address] [id number] [place] [address] Sep, [facility] [place] [facility] [address] [id number] [place] [id number] Sep, [facility] [place] [facility] [address] [id number] [place] [address] Sep, [facility] [place] [facility] [address] [id number] [place] [address] Sep, [facility] [place] [facility] [address] [id number] [place] [address] Sep, [facility] [place] [facility] [address] [id number] [place] [address] August, [facility] [place] [facility] [address] [id number] [place] [address] August, [facility] [place] [facility] [address] [id number] [place] [address] Jul, [facility] [place] [facility] [address] [id number] [place] [address] Jul, [facility] [place] [facility] [address] [id number] [place] [address]- [address] Jul, [facility] [place] [facility] [address] [id number] [place] [address] Jul, [facility] [place] [facility] [address] [id number] [place] [address]- [address] Jul, [facility] [place] [facility] [address] [id number] [place] [address] Jul, [facility] [place] [facility] [address] [id number] [place] [address] Jul, [facility] [place] [facility] [address] [id number] [place] [address] Jul, [facility] [place] [facility] [address] [id number] [place] [address] Jul, [facility] [place] [facility] [address] [id number] [place] [address] Jul, [facility] [place] [facility] [address] [id number] [place] [address] Jun, [facility] [place] [facility] [address] [id number] [place] [address] Jun, [facility] [place] [facility] [address] [id number] [place] [address] Jun, [facility] [place] [facility] [address] [id number] [place] [address] Jun, [facility] [place] [facility] [address] [id number] [place] [address] May, [facility] [place] [facility] [address] [id number] [place] [address] May, [facility] [place] [facility] [address] [id number] [place] [address] May, [facility] [place] [facility] [address] [id number] [place] [address] May, [facility] [place] [facility] [address] [id number] [place] [address] May, [facility] [place] [facility] [address] [id number] [place] [address] 10 May, 2013 [facility] [place] [facility] [address] [id number] [place] [address] 16 Mar, 2013 [facility] [place] [facility] [address] [id number] [place] [address] 2546 16 Mar, 2013 [facility] [place] [facility] [address] [id number] [place] [address] 16 Mar, 2013 [facility] [place] [facility] [address] [id number] [place] [address] 16 Mar, 2013 [facility] [place] [facility] [address] [id number] [place] [address] 16 Mar, 2013 [facility] [place] [facility] [address] [id number] [place] [address] 16 Mar, 2013 [facility] [place] [facility] [address] [id number] [place] [address] Feb, [facility] [place] [facility] [address] [id number] [place] [address] Feb, [facility] [place] [facility] [address] [id number] [place] [address] Feb, [facility] [place] [facility] [address] [id number] [place] [address] Feb, [facility] [place] [facility] [address] [id number] [place] [address] Feb, [facility] [place] [facility] [address] [id number] [place] [address] Feb, [facility] [place] [facility] [address] [id number] [place] [address]709 Feb, [facility] [place] [facility] [address] [id number], [place] [address] Feb, [facility] [place] [facility] [address] [id number] [place] [address] 18 Jan, 2013 [facility] [place] [facility] [address] [id number], [place] [address] 18 Jan, 2013 [facility] [place] [facility] [address] [id number], [place] [address] 17 Jan, 2013 [facility] [place] [facility] [address] [id number], [place] [address] 16 Jan, 2013 [facility] [place] [facility] [address] [id number], [place] [address] 16 Jan, 2013 [facility] [place] [facility] [address] [id number], [place] [address] 14 Jan, 2013 [facility] [place] [facility] [address] [id number], [place] [address] 14 Jan, 2013 [facility] [place] [facility] [address] [id number], [place] [address]67 Jan, [facility] [place] [facility] [address] [id number] [place] [address]285 Jan, [facility] [place] [facility] [address] [id number] [place] [address] Jan, [facility] [place] [facility] [address] [id number] [place] [address] Dec, [facility] [place] [facility] [address] [id number] [place] [address]37 Dec, [facility] [place] [facility] [address] [id number] [place] [address] 8664 Dec, [facility] [place] [facility] [address] [id number] [place] [address]34 Nov, [facility] [place] [facility] [address] [id number] [place] [address] Nov, [facility] [place] [facility] [address] [id number] [place] [address]306 Nov, [facility] [place] [facility] [address] [id number] [place] [address] 6542 Nov, [facility] [place] [facility] [address] [id number] [place] [address] 8173 Nov, [facility] [place] [facility] [address] [id number] [place] [address] 1322 Nov, [facility] [place] [facility] [address] [id number] [place] [address] 8310 Nov, [facility] [place] [facility] [address] [id number] [place] [address] Nov, [facility] [place] [facility] [address] [id number] [place] [address] 6807 Nov, [facility] [place] [facility] [address] [id number] [place] [address] 8214 Nov, [facility] [place] [facility] [address] [id number] [place] [address] Oct, [facility] [address] [id number] [place] [address] Oct, [facility] [place] [facility] [address] [id number] [place] [address]65 Oct, [facility] [address] [id number] [place] [address]99 Oct, [facility] [place] [facility] [address] [id number] [place] [address] Oct, [facility] [address] [id number] [place] [address]112 Oct, [facility] [place] [facility] [address] [id number] [place] [address]- [address]27 Oct, [facility] [address] [id number] [place] [address] 4280 Oct, [facility] [address] [id number] [place] [address]40 Sep, [facility] [address] [id number] [place] [address] 3597 Sep, [facility] [address] [id number] [place] [address] 387[address] Sep, [facility] [place] [facility] [address] [id number] [place] [address] 3800 Sep, [facility] [place] [facility] [address] [id number] [place] [address]- 9733 August, [facility] [place] [facility] [address] [id number] [place] [address] 1742 August, [facility] [place] [facility] [address] [id number] [place] [address]- [address]166 August, [facility] [address] [place] [id number] Jul, [facility] [address] [id number] Jul, 2012 [facility] [place] [facility] [address] [id number] [place] [address] 2320 Jun, [facility] [address] [id number] [place] [address]- 7476 May, [facility] [address] [id number] [place] [address]- 3070 May, [facility] [address] [id number] [place] [address]- 6101 Apr, [facility] [address] [id number] [place] [address]- 0730 Feb, [facility] [address] [id number] [place] [address]- 1139 Feb, [facility] [address] [id number] [place] [address]- 7095 Jan, [facility] [address] [id number] [place] [address]- 4569 Jan, [facility] [address] [id number] [place] [address]- 6423 Jan, [facility] [address] [id number] [place] [address]- 1255 Jan, [facility] [address] [id number] [place] [address] 8552 Jan, [facility] [address] [id number], [place] [address] 4[address] Dec, [facility] [address] [id number], [place] [address]- [address] Dec, [facility] [address] [id number] [place] [id number] Nov, [facility] [address] [id number] [place] [address]- 9900 Nov, [facility] [place] [facility] [address] [id number] [place] [address]- 0048 Nov, [facility] [address] [id number] [place] [address]- 5377 Nov, [facility] [place] [facility] [address] [id number] [place] [address]- 3180 August, [facility] [place] [facility] [address] [id number] [place] [address]- 8600 August, [facility] [place] [facility] [address] [id number] [place] [address]- 5261 August, [facility] [place] [facility] [address] [id number] [place] [address]- [address]227 Jul, [facility] [place] [facility] [address] [id number] [place] [address]- 7379 May, [facility] [place] [facility] [address] [id number] [place] [address]- 1995 May, [facility] [place] [facility] [address] [id number] [place] [address]- 7950 May, [facility] [place] [facility] [address] [id number] [place] [address]- 3223 Mar, [facility] [place] [facility] [address] [id number] [place] [address]- 9145 Jan, [facility] [place] [facility] [address] [id number] [place] [address]- 1545 Jan, [facility] [place] [facility] [address] [id number] [place] [address]- 1657 Oct, [facility] [place] [facility] [address] [id number] [place] [address]- 7195 August, [facility] [place] [facility] [address] [id number] [place] [address]- 6460 Jan, [facility] [place] [facility] [address] [id number] [place] [address]- 6585 Jan, [facility] [address] [facility] [id number] [place] [address] Jan, [facility] [address] [facility] [id number] [place] Jan, IMMUNIZATIONS No Known Immunizations SOCIAL HISTORY Never Assessed REASON FOR VISIT Controlled Med Refill 08/27/17 PLAN OF CARE VITAL SIGNS MEDICATIONS Medication [...]
--- OUTSIDE RECORDS SUMMARY | 2018-02-08 21:18 | XMS REPORT ---
Author Author ROSIO IRBY Organization [facility] Address [address] [place] [address] Care Team Providers Care Station Superintendent Name Role Phone ROSIO IRBY Unavailable PROBLEMS Type Condition ICD9-CM Code [id number] Code Onset Dates Condition Status SNOMED Code Problem History of alcohol abuse Z87.898 Active 487061855 Problem Mood disorder F39 Active 31186856 Problem Generalized anxiety disorder F41.1 Active 06219253 Problem Hypertension, benign I10 Active 26093629 Problem Allergic rhinitis, unspecified allergic rhinitis type J30.9 Active 95170574 Problem Chronic hepatitis C without hepatic coma B18.2 Active 599191045 Problem Obsessive compulsive disorder F42 Active 036252509 Problem Hyperammonemia E72.20 Active 3760517 ALLERGIES No Information ENCOUNTERS Encounter Location Date Diagnosis [place] [address] [address] Oct, Bronchitis J40 [place] [address] [address]- [address]90 Oct, Chronic hepatitis C without hepatic coma B18.2 and Cough R05 [place] [address] [place] [id number] [place] [address] 55992- 4198 Sep, Chronic hepatitis C without hepatic coma B18.2 [place] [address] [place] [id number] [place] [address] 84542- 7205 August, Chronic hepatitis C without hepatic coma B18.2 [place] [address] 24775- 4586 Jul, Chronic hepatitis C without hepatic coma B18.2 [facility] [address] [place] [id number] [place] [address] 02834- 3636 Jul, Generalized anxiety disorder F41.1 ; Mood disorder F39 and History of hepatitis C Z86.19 [facility] [address] [address] 64[address] Jul, Chronic hepatitis C without hepatic coma B18.2 [facility] [id number] [place] [address] 38103- 7506 Jun, Chronic hepatitis C without hepatic coma B18.2 [facility] [address] [place] [id number] [place] [address] 35317- 4346 Jun, [facility] [address] [place] [id number] [place] [address] 56383- 8087 May, Chronic hepatitis C without hepatic coma B18.2 [facility] [address] [place] [id number] [place] [address] 31269- 8375 May, Hypertension, benign I10 [facility] [address] [place] [id number] [place] [address] 25666- 3779 Apr, Chronic hepatitis C without hepatic coma B18.2 [facility] [id number] [place] [address] 75694- 3177 Apr, Hypertension, benign I10 [facility] [address] [place] [id number] [place] [address] 46008- 5976 Mar, Chronic hepatitis C without hepatic coma B18.2 [facility] [address] [place] [id number] [place] [address] 77362- 9396 Mar, Hypertension, benign I10 [facility] [address] [place] [id number] [place] [address] 58104- 7679 Mar, Hypertension, benign I10 ; Encounter for immunization Z23 and Strain of right Achilles tendon, initial encounter S86.011A [facility] [address] [place] [id number] [place] [address] 46992- 6380 Feb, Chronic hepatitis C without hepatic coma B18.2 [facility] [address] [place] [id number] [place] [address] 96234- 0254 Jan, Chronic hepatitis C without hepatic coma B18.2 [facility] [address] [place] [address] Jan, Toe pain, right M79.674 and Cellulitis of foot, right L03.115 [facility] [address] [place] [address] 2546 Dec, Chronic hepatitis C without hepatic coma B18.2 [facility] [address] [place] [id number] [place] [address], [place] [address]- 2876 Nov, Chronic hepatitis C without hepatic coma B18.2 and Eczema of both hands L30.9 [facility] [address] [place] [id number] [place] [address], [place] [address]- 0926 Nov, [facility] [address] [place] [id number] [place] [address]- 6645 Oct, [facility] [address] [place] [id number] [place] [address], [place] [address]- 1840 Sep, [facility] [address] [place] [address]- 7519 August, [facility] [address] [place] [id number] [place] [address]- 8806 August, [facility] [address] [place] [address]- 1908 Jul, [facility] [address] [place] [address]- 2789 Jul, [facility] [address] [address] 2541 Jun, [facility] [address] [place] [id number] [place] [address] 2546 Jun, [facility] [address] [place] [address] 2546 May, [facility] [address] [place] [id number] [place] [address] 17316- 1704 Apr, Chronic hepatitis C without hepatic coma B18.2 ; Hyperglycemia R73.9 and Hypertension, benign I10 [facility] [address] [place] [id number] [place] [address] 60863- 6555 Apr, Chronic hepatitis C without hepatic coma B18.2 ; Mood disorder F39 ; Hypertension, benign I10 and Hyperglycemia R73.9 [facility] [address] [place] [id number] [place] [address] 02269- 1350 Apr, [facility] [address] [place] [id number] [place] [address] 84293- 8122 Apr, [facility] [address] 13109- 9106 Apr, [facility] [address] [place] [id number] [place] [address] 84101- 8485 Feb, [facility] [address] [place] [id number] [place] [address] 10485- 9343 Feb, [facility] [address] [place] [id number] [place] [address] 72589- 9185 Feb, [facility] [address] [place] [id number] [place] [address] 42234- 3525 Feb, [facility] [address] [place] [id number] [place] [address] 59321- 0653 Jan, [facility] [address] [place] [id number] [place] [address] 52545- 4277 Jan, Chronic hepatitis C without hepatic coma B18.2 ; Mood disorder F39 ; Encounter for immunization Z23 and Chronic viral hepatitis C B18.2 [facility] [address] [place] [id number] [place] [address] 54314- 0661 Jan, [facility] [address] [place] [id number] [place] [address] 39816- 9774 Jan, [facility] [address] [place] [id number] [place] [address] 95412- 2476 Dec, [facility] [address] [address]- 0032 Dec, [facility] [address] [place] [id number] [place] [address] 14843- 2080 Nov, [facility] [address] [place] [address] [id number] [address]- 3155 Nov, Weakness of both legs M62.81 [facility] [address] [place] [id number] [place] [address] 89718- 4458 Nov, [facility] [id number] [place] [address] 70660- 7942 Nov, [facility] [address] [place] [id number] [place] [address] 59572- 6118 Nov, [facility] [address] [place] [id number] [place] [address] 90017- 1911 Nov, Eczema, unspecified type L30.9 [facility] [id number] [place] [address] 32306- 5221 Nov, [facility] [id number] [place] [address] 10952- 0277 Nov, Eczema, unspecified type L30.9 ; Cessation of tobacco use in previous 12 months Z87.891 and Weakness of both legs M62.81 [facility] [address] [address]- 1016 Oct, [facility] [address], [place] [address]- 2549 Oct, [facility] [id number] [place] [address] 41452- 2981 Oct, [facility] [address], [place] [address]- 8077 Oct, Chronic viral hepatitis C B18.2 [facility] [address], [place] [address]- 9458 Sep, [facility] [address], [place] [address]- 6582 16 Sep, 2015 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 and Generalized anxiety disorder F41.1 [facility] [address] [address]- 0558 Sep, [facility] [address] [place] [id number] [place] [address] 16927- 2581 August, [facility] [address] [place] [id number] [place] [address] 32033- 8090 August, Hyperammonemia E72.20 [facility] [address] [place] [id number] [place] [address] 59575- 8501 August, Hyperammonemia E72.20 [facility] [address] [place] [id number] [place] [address] 88019- 3440 August, Hyperammonemia E72.20 and Chronic hepatitis C without hepatic coma B18.2 [facility] [address] [place] [id number] [place] [address] 49454- 2774 August, Chronic viral hepatitis C B18.2 [facility] [address] [place] [id number] [place] [address] 47672- 4231 August, [facility] [address] [place] [id number] [address]- 2242 Jul, Chronic viral hepatitis C B18.2 and Hyperammonemia E72.20 [facility] [address], [place] [address]- 3385 Jul, Chronic viral hepatitis C B18.2 [facility] [address] [place] [id number] [address]- 6188 Jul, [facility] [address], [place] [address]- 8927 Jul, [facility] [id number] [place] [address] 01606- 1607 Jun, [facility] [address] [place] [address]- 1776 23 Jun, 2015 Chronic viral hepatitis C B18.2 and Hyperammonemia E72.20 [facility] [address] [place] [address]- 5573 21 Jun, 2015 [facility] [address] [place] [id number] [place] [address], [place] [address]- 1677 18 Jun, 2015 [facility] [address] [place] [id number] [place] [address], [place] [address]- 1564 16 Jun, 2015 Chronic viral hepatitis C B18.2 [facility] [address] [place] [id number] [place] [address], [place] [address]- 3230 10 Jun, 2015 [facility] [address] [place] [id number] [place] [address]- 8334 07 Jun, 2015 Chronic viral hepatitis C B18.2 [facility] [address] [place] [address]- 5331 17 May, 2015 Hepatitis C, chronic B18.2 and Chronic viral hepatitis C B18.2 [facility] [address] [place] [address]- 4187 May, [facility] [address] [address]- 0229 Apr, [facility] [address], [place] [address]- 0229 Apr, Chronic viral hepatitis C B18.2 and Hyperammonemia E72.20 [facility] [address] [address]- 8887 Apr, Chronic viral hepatitis C B18.2 [facility] [address], [place] [address]- 8691 Apr, Hyperammonemia E72.20 [facility] [address], [place] [address]- 1129 Apr, [facility] [address] [place] [id number] [place] [address] 60875- 7066 Apr, [facility] [address] 65849- 2758 Apr, Chronic hepatitis C without hepatic coma B18.2 ; Hyperammonemia E72.20 and Chronic viral hepatitis C B18.2 [place] [address] 39346- 0951 Mar, Shortness of breath R06.02 [facility] [address] [place] [id number] [place] [address] 66066- 8161 Mar, Mood disorder F39 and Major depressive disorder, recurrent episode, unspecified 296.30 [place] [address] 59974- 7646 Mar, [facility] [address] 99694- 1783 Mar, [facility] [address] [place] [id number] [place] [address] 65537- 4774 Mar, [facility] [address] [place] [id number] [place] [address] 63343 -7479 Mar, Seasonal allergies J30.2 ; Shortness of breath R06.02 and Cough R05 [place] [address] [place] [id number] [place] [address] 60029- 6312 Mar, Hyperammonemia E72.20 ; Mood disorder F39 and History of alcohol abuse Z87.898 [facility] [address] [place] [id number] [place] [address] 07684- 7988 Mar, Hyperammonemia E72.20 [place] [address] [place] [id number] [place] [address] 53148- 1740 Mar, [facility] [address] [place] [id number] [place] [address] 03536- 9091 Feb, [facility] [address], [place] [address]- 6218 Feb, [facility] [address] [place] [id number] [place] [address] 72198- 1198 Feb, Hyperammonemia E72.20 [facility] [address] [place] [id number] [place] [address] 14823- 0958 Feb, [facility] [address] [place] [id number] [place] [address] 32116- 8570 Feb, [facility] [address] [place] [id number] [place] [address] 38536- 6686 Feb, [facility] [address] [place] [id number] [place] [address] 46322- 9063 Feb, [facility] [address] [place] [id number] [place] [address] 28606- 6339 Feb, Chronic viral hepatitis C B18.2 [facility] [address] [place] [id number] [place] [address] 31542- 4302 Feb, Chronic viral hepatitis C B18.2 [facility] [address] [place] [id number] [place] [address] 79590- 9643 Feb, [facility] [id number] [place] [address] 77646- 8017 Feb, Chronic viral hepatitis C B18.2 and Confusion R41.0 [facility] [id number] [place] [address] 43572- 9422 Feb, [facility] [id number] [place] [address] 96340- 9507 Jan, [facility] [address] [place] [id number] [place] [address] 96125- 2360 Jan, Confusion R41.0 [facility] [address] [place] [id number] [place] [address] 31832- 8013 Jan, [facility] [address] [place] [id number] [address]- 8108 Jan, [facility] [address], [place] [address]- 8993 Jan, [facility] [address] [place] [id number] [place] [address] 30072- 6211 Jan, [facility] [address] [place] [address] 18530- 8012 Jan, Chronic viral hepatitis C B18.2 and 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 [facility] [address] [place] [id number] [place] [address] 48157- 1277 Jan, [facility] [address] [place] [id number] [place] [address] 06709- 1884 Jan, [facility] [address] [place] [id number] [place] [address] 94104- 7832 Jan, [facility] [address] [place] [id number] [place] [address] 45549- 1307 Jan, [facility] [id number] [place] [address] 60026- 8860 Jan, Chronic viral hepatitis C B18.2 [facility] [address] [address]- 3948 Jan, [facility] [id number] [place] [address] 00078- 9434 Jan, Back pain at L4-L5 level M54.5 and Confusion R41.0 [facility] [address], [place] [address]- 4086 Jan, [facility] [address] [place] [id number] [place] [address] 07038- 4553 30 Dec, 2014 Chronic viral hepatitis C B18.2 and Flu vaccine need V04.81 [facility] [address], [place] [address]- 6959 30 Dec, 2014 Chronic viral hepatitis C B18.2 [facility] [address] [place] [address] 64442- 6153 Dec, [facility] [address] [place] [id number] [place] [address] 93122- 1391 Dec, Polyuria 788.42 [facility] [address] [place] [id number] [place] [address] 43662- 1735 Dec, Polyuria 788.42 ; Polydipsia 783.5 ; Dizziness 780.4 and Hepatitis C, chronic 070.54 [facility] [address] [place] [id number] [place] [address] 79061- 0372 Dec, Major depressive disorder, recurrent episode, unspecified 296.30 and Generalized anxiety disorder 300.02 [facility] [address] [place] [id number] [place] [address] 45401- 4972 Nov, [facility] [address] 13937- 5696 Nov, [facility] [address] [place] [id number] [place] [address] 57739- 4854 Nov, [facility] [address] [place] [id number] [place] [address] 47806- 8491 Oct, [facility] [address] [place] [id number] [place] [address] 77864- 9070 Sep, [facility] [address] [place] [id number] [place] [address] 65452- 8335 August, Obsessive-compulsive disorders 300.3 ; Generalized anxiety disorder 300.02 and Major depressive disorder, recurrent episode, unspecified 296.30 [facility] [address] [place] [id number] [place] [address] 63927- 3072 August, Chronic hepatitis C without mention of hepatic coma 070.54 ; Hypertension 401.9 and Seasonal allergies 477.9 [facility] [address] [place] [id number] [place] [address] 87617- 8179 Jul, [facility] [address] [id number] [address]- 5642 Jul, [facility] [address] [id number] [place] [address]- 5372 Jun, [facility] [place] [facility] [address] [id number] [place] [address]- 3205 Jun, [facility] [place] [facility] [address] [id number] [place] [address]- 4363 May, [facility] [place] [facility] [address] [id number] [place] [address]- 5599 May, [facility] [place] [facility] [address] [id number] [place] [address]- 9501 May, [facility] [place] [facility] [address] [id number] [place] [address]- 9036 May, [facility] [place] [facility] [address] [id number] [place] [address]- 7642 Apr, [facility] [place] [facility] [address] [id number] [place] [address]- 3084 Apr, [facility] [place] [facility] [address] [id number] [place] [address]- 8349 Apr, [facility] [place] [facility] [address] [id number] [place] [address]- 7762 Apr, [facility] [place] [facility] [address] [id number] [place] [address]- 1106 Apr, [facility] [place] [facility] [address] [id number] [place] [address]- 1594 Apr, [facility] [place] [facility] [address] [id number] [place] [address]- 3991 Mar, [facility] [place] [facility] [address] [id number] [place] [address]- 6246 Mar, [facility] [place] [facility] [address] [id number] [place] [address]- 2174 Mar, [facility] [place] [facility] [address] [id number] [place] [address]- 0529 Mar, [facility] [place] [facility] [address] [id number] [place] [address]- 7887 Mar, [facility] [place] [facility] [address] [id number] [place] [address]- 9669 Mar, [facility] [place] [facility] [address] [id number] [place] [address]- 6132 Mar, [facility] [place] [facility] [address] [id number] [place] 4750 Mar, [facility] [place] [facility] [address] [id number] [place] [address]- 8000 Mar, [facility] [place] [facility] [address] [id number] [place] [address]- 9354 Feb, [facility] [place] [facility] [address] [id number] [place] [address]- 7979 Feb, [facility] [place] [facility] [address] [id number] [place] [address]- 0463 Feb, [facility] [place] [facility] [address] [id number] [place] [address]- 7448 Feb, [facility] [place] [facility] [address] [id number] [place] [address]- 0961 Feb, [facility] [place] [facility] [address] [id number] [address]- 7334 Jan, [facility] [place] [facility] [address] [id number] [place] [address]- 8324 Jan, [facility] [place] [facility] [address] [id number] [place] [address]- 0919 Jan, [facility] [place] [facility] [address] [id number], [place] [address]- 2621 Jan, [facility] [place] [facility] [address] [id number], [place] [address]- 6137 Jan, [facility] [place] [facility] [address] [id number] [place] [address]- 4876 Jan, [facility] [place] [facility] [address] [id number] [place] [address]- 5417 Jan, [facility] [place] [facility] [address] [id number] [place] [address]- 4272 Jan, [facility] [place] [facility] [address] [id number] [place] [address]- 2599 Jan, [facility] [place] [facility] [address] [id number] [place] [address]- 5953 Nov, [facility] [place] [facility] [address] [id number] [place] [address]- 5584 Nov, [facility] [place] [facility] [address] [id number] [place] [address]- 8122 Nov, [facility] [place] [facility] [address] [id number] [place] [address]- 6385 Oct, [facility] [place] [facility] [address] [id number] [place] [address]- 4283 Oct, [facility] [place] [facility] [address] [facility] [id number] [place] [address]- 0145 Oct, [facility] [place] [facility] [address] [id number] [place] [address]- 3952 Oct, [facility] [place] [facility] [address] [id number] [place] [address]- 7264 Sep, [facility] [place] [facility] [address] [id number] [place] [address]- 3619 Sep, [facility] [place] [facility] [address] [id number] [place] [address] Sep, [facility] [place] [facility] [address] [facility] [id number] [place] [address] Sep, [facility] [place] [facility] [address] [id number] [place] [address] Sep, [facility] [place] [facility] [address] [id number] [place] [address] Sep, [facility] [place] [facility] [address] [id number] [place] [address] August, [facility] [place] [facility] [address] [id number] [place] [address] August, [facility] [place] [facility] [address] [id number] [place] [address] Jul, [facility] [place] [facility] [address] [id number] [place] [address] Jul, [facility] [place] [facility] [address] [id number] [place] [address] Jul, [facility] [place] [facility] [address] [id number] [place] [address] Jul, [facility] [place] [facility] [address] [id number] [place] [address] Jul, [facility] [place] [facility] [address] [id number] [place] [address] Jul, [facility] [place] [facility] [address] [id number] [place] [address] Jul, [facility] [place] [facility] [address] [id number] [place] [address] Jul, [facility] [place] [facility] [address] [id number] [place] [address] Jul, [facility] [place] [facility] [address] [id number] [place] [address] Jul, [facility] [place] [facility] [address] [id number] [place] [address] Jun, [facility] [place] [facility] [address] [id number] [place] [address] Jun, [facility] [place] [facility] [address] [id number] [place] [address] Jun, [facility] [place] [facility] [address] [id number] [place] [address] Jun, [facility] [place] [facility] [address] [id number] [place] [address] May, [facility] [place] [facility] [address] [id number] [place] [address] May, [facility] [place] [facility] [address] [id number] [place] [address]- [address] May, [facility] [place] [facility] [address] [id number] [place] [address] May, [facility] [place] [facility] [address] [id number] [place] [address] May, [facility] [place] [facility] [address] [id number] [place] [address] May, [facility] [place] [facility] [address] [id number] [place] [address] Mar, [facility] [place] [facility] [address] [id number] [place] [address]- [address] 16 Mar, 2013 [facility] [place] [facility] [address] [id number] [place] [address] 16 Mar, 2013 [facility] [place] [facility] [address] [id number] [place] [address] 16 Mar, 2013 [facility] [place] [facility] [address] [id number] [place] [place] [address] Mar, [facility] [place] [facility] [address] [id number] [place] [address] 16 Mar, 2013 [facility] [place] [facility] [address] [id number] [place] [address] Feb, [facility] [place] [facility] [address] [id number] [place] [address] Feb, 2012 [facility] [place] [facility] [address] [id number] [place] [address] Feb, [facility] [place] [facility] [address] [id number] [place] [address] Feb, [facility] [place] [facility] [address] [id number] [place] [address] Feb, [facility] [place] [facility] [address] [id number] [place] [address] 1427 Feb, [facility] [place] [facility] [address] [id number] [place] [address] Feb, [facility] [place] [facility] [address] [id number] [place] [address] 07 Feb, 2013 [facility] [place] [facility] [address] [id number] [place] [address] 18 Jan, 2013 [facility] [place] [facility] [address] [id number] [place] [address] 18 Jan, 2013 [facility] [place] [facility] [address] [id number] [place] [address] 17 Jan, 2013 [facility] [place] [facility] [address] [id number] [place] [address] 16 Jan, 2013 [facility] [place] [facility] [address] [id number] [place] [address] 16 Jan, 2012 [facility] [place] [facility] [address] [id number] [place] [address] 14 Jan, 2013 [facility] [place] [facility] [address] [id number] [place] [address]- [address]208 14 Jan, 2012 [facility] [place] [facility] [address] [id number] [place] [address] 11 Jan, 2013 [facility] [place] [facility] [address] [id number] [place] [address]- [address] Jan, [facility] [place] [facility] [address] [id number] [place] [address]- 9573 Jan, [facility] [place] [facility] [address] [id number] [place] [address]- [address] Dec, [facility] [place] [facility] [address] [id number] [place] [address]- 69[address] Dec, [facility] [place] [facility] [address] [id number] [place] [address]- 6631 Dec, [facility] [place] [facility] [address] [id number] [place] [address]- [address]451 Nov, [facility] [place] [facility] [address] [id number] [place] [address]181 Nov, [facility] [place] [facility] [address] [id number] [place] [address]- 6[address] Nov, [facility] [place] [facility] [address] [id number] [place] [address]- 4717 Nov, [facility] [place] [facility] [address] [id number] [place] [address]- 9998 Nov, [facility] [place] [facility] [address] [id number] [place] [address]- [address] Nov, [facility] [place] [facility] [address] [id number] [place] [address]- 5999 Nov, [facility] [place] [facility] [address] [id number] [place] [address]- [address] Nov, [facility] [place] [facility] [address] [id number] [place] [address]- [address]296 Nov, [facility] [place] [facility] [address] [id number] [place] [address]- 9677 Nov, [facility] [place] [facility] [address] [id number] [place] [address] 49[address] Oct, [facility] [place] [facility] [address] [id number] [place] [address] 4238 Oct, [facility] [address] [id number] [place] [address]- [address] Oct, [facility] [address] [id number] [place] [address]- 4473 Oct, [facility] [address] [id number] [place] [address]- 1669 Oct, [facility] [address] [id number] [place] [address]- 1320 Oct, [facility] [address] [id number] [place] [address]- 5975 Oct, [facility] [address] [id number] [place] [address]- 2017 Oct, [facility] [address] [id number] [place] [address]- [address] Sep, [facility] [address] [id number] [place] [address] 38[address] Sep, [facility] [address] [id number] [place] [address] Sep, [facility] [address] [id number] [place] [address]- 9016 Sep, [facility] [address] [id number] [place] [address]- 1469 August, [facility] [place] [facility] [address] [id number] [place] [address] 3466 August, [facility] [address] [id number] [place] [address]- [address] August, [facility] [address] [place] [id number] Jul, [facility] [address] [place] [id number] Jul, [facility] [address] [id number] [place] [address]- 1697 Jun, [facility] [place] [facility] [address] [id number] [place] [address]- 0551 May, [facility] [place] [facility] [address] [id number] [place] [address]- 3356 May, [facility] [place] [facility] [address] [facility] [id number] [place] [address]44 Apr, [facility] [place] [facility] [address] [id number] [place] [address]- 2546 Feb, [facility] [place] [facility] [address] [id number] [place] [address]- 1273 Feb, [facility] [place] [facility] [address] [id number], [place] [address] Jan, [facility] [place] [facility] [address] [id number] [place] [address]- 7156 Jan, [facility] [place] [facility] [address] [id number], [place] [address] Jan, [facility] [place] [facility] [address] [id number], [place] [address]- 8[address] Jan, [facility] [place] [facility] [address] [facility] [id number], [place] [address]- [address] Jan, [facility] [place] [facility] [address] [facility] [id number], [place] [address]- 2546 Dec, [facility] [place] [facility] [address] [facility] [id number], [place] [address] 2546 Dec, [facility] [address] [facility] [id number] [id number] Nov, [facility] [place] [facility] [address] [facility] [id number], [place] [address] Nov, [facility] [place] [facility] [address] [facility] [id number], [place] [address]- 7436 Nov, [facility] [place] [facility] [address] [facility] [id number], [place] [address]- 1169 Nov, [facility] [address] [id number] [place] [address]- 456[address] August, [facility] [place] [facility] [address] [id number] [place] [address] August, [facility] [place] [facility] [address] [id number] [place] [address]- 3396 August, [facility] [place] [facility] [address] [id number] [place] [address]- 7228 Jul, [facility] [place] [facility] [address] [id number] [place] [address]- 4411 May, [facility] [place] [facility] [address] [id number] [place] [address]- 0356 May, [facility] [address] [id number] [place] [address]- 1057 May, [facility] [place] [facility] [address] [id number], [place] [address]- [address]674 Mar, [facility] [place] [facility] [address] [id number] [place] [address]- 6885 Jan, [facility] [place] [facility] [address] [facility] [id number], [place] [address]- [address]15 Jan, [facility] [place] [facility] [address] [id number] [place] [address]- 1873 Oct, [facility] [place] [facility] [address] [id number], [place] [address] August, [facility] [place] [facility] [address] [id number] [place] [address]- 4091 Jan, [facility] [place] [facility] [address] [id number], [place] [address]- 9796 Jan, [facility] [place] [facility] [address] [id number], [place] [address]- 1204 Jan, [facility] [place] [facility] [address] [facility] [id number] [place] [address]- [address]121 Jan, IMMUNIZATIONS No Known Immunizations SOCIAL HISTORY Never Assessed REASON FOR VISIT Controlled Med Refill 07/30/17 PLAN OF CARE VITAL SIGNS MEDICATIONS Medication [...]
--- OUTSIDE RECORDS SUMMARY | 2018-02-08 21:19 | XMS REPORT ---
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 Role Phone ROSIO IRBY Unavailable PROBLEMS Type Condition ICD9-CM Code TAX97-AO Code Onset Dates Condition Status SNOMED Code Problem History of alcohol abuse Z87.898 Active 720865279 Problem Mood disorder F39 Active 80782857 Problem Generalized anxiety disorder F41.1 Active 84057550 Problem Hypertension, benign I10 Active 13662033 Problem Allergic rhinitis, unspecified allergic rhinitis type J30.9 Active 04281964 Problem Chronic hepatitis C without hepatic coma B18.2 Active 615831932 Problem Obsessive compulsive disorder F42 Active 806909940 Problem Hyperammonemia E72.20 Active 0397896 ALLERGIES No Information ENCOUNTERS Encounter Location Date Diagnosis [place] [address] [address] Oct, Bronchitis J40 [place] [address] [address]- [address]18 Oct, Chronic hepatitis C without hepatic coma B18.2 and Cough R05 [place] [address] [place] [id number] [place] [address] 20759- 9530 Sep, Chronic hepatitis C without hepatic coma B18.2 [place] [address] [place] [id number] [place] [address] 93493- 9828 August, Chronic hepatitis C without hepatic coma B18.2 [place] [address] 80896- 6736 Jul, Chronic hepatitis C without hepatic coma B18.2 [facility] [address] [place] [id number] [place] [address] 12777- 3112 Jul, Generalized anxiety disorder F41.1 ; Mood disorder F39 and History of hepatitis C Z86.19 [facility] [address], [place] [address] 3574 Jul, Chronic hepatitis C without hepatic coma B18.2 [facility] [id number] [place] [address] 67004- 7576 Jun, Chronic hepatitis C without hepatic coma B18.2 [facility] [address] [place] [id number] [place] [address] 31332- 6906 Jun, [facility] [address] [place] [id number] [place] [address] 46801- 6468 May, Chronic hepatitis C without hepatic coma B18.2 [facility] [address] [place] [id number] [place] [address] 70999- 7211 May, Hypertension, benign I10 [facility] [address] [place] [id number] [place] [address] 32964- 8923 Apr, Chronic hepatitis C without hepatic coma B18.2 [facility] [id number] [place] [address] 96749- 5909 Apr, Hypertension, benign I10 [facility] [address] [place] [id number] [place] [address] 51415- 1126 Mar, Chronic hepatitis C without hepatic coma B18.2 [facility] [address] [place] [id number] [place] [address] 49551- 2719 Mar, Hypertension, benign I10 [facility] [address] [place] [id number] [place] [address] 29380- 2730 Mar, Hypertension, benign I10 ; Encounter for immunization Z23 and Strain of right Achilles tendon, initial encounter S86.011A [facility] [address] [place] [id number] [place] [address] 75350- 8595 Feb, Chronic hepatitis C without hepatic coma B18.2 [facility] [address] [place] [id number] [place] [address] 94900- 0646 Jan, Chronic hepatitis C without hepatic coma B18.2 [facility] [address] [place] [address] Jan, Toe pain, right M79.674 and Cellulitis of foot, right L03.115 [facility] [address] [place] [address] 2546 Dec, Chronic hepatitis C without hepatic coma B18.2 [facility] [address] [place] [id number] [place] [address], [place] [address]- 4266 Nov, Chronic hepatitis C without hepatic coma B18.2 and Eczema of both hands L30.9 [facility] [address] [place] [id number] [place] [address], [place] [address]- 5486 Nov, [facility] [address] [place] [id number] [place] [address]- 2143 Oct, [facility] [address] [place] [id number] [place] [address], [place] [address]- 1230 Sep, [facility] [address] [place] [address]- 6378 August, [facility] [address] [place] [id number] [place] [address]- 7836 August, [facility] [address] [place] [address]- 4287 Jul, [facility] [address] [place] [address]- 4192 Jul, [facility] [address], [place] [address] 2549 Jun, [facility] [address] [place] [id number] [place] [address] 2546 Jun, [facility] [address] [place] [address] 2546 May, [facility] [address] [place] [id number] [place] [address] 71959- 9716 Apr, Chronic hepatitis C without hepatic coma B18.2 ; Hyperglycemia R73.9 and Hypertension, benign I10 [facility] [address] [place] [id number] [place] [address] 38292- 3346 Apr, Chronic hepatitis C without hepatic coma B18.2 ; Mood disorder F39 ; Hypertension, benign I10 and Hyperglycemia R73.9 [facility] [address] [place] [id number] [place] [address] 20337- 1045 Apr, [facility] [address] [place] [id number] [place] [address] 75269- 9836 Apr, [facility] [address] 59797- 3537 Apr, [facility] [address] [place] [id number] [place] [address] 76531- 1554 Feb, [facility] [address] [place] [id number] [place] [address] 68670- 8551 Feb, [facility] [address] [place] [id number] [place] [address] 74559- 3995 Feb, [facility] [address] [place] [id number] [place] [address] 00757- 4697 Feb, [facility] [address] [place] [id number] [place] [address] 99162- 4344 Jan, [facility] [address] [place] [id number] [place] [address] 13060- 7846 Jan, Chronic hepatitis C without hepatic coma B18.2 ; Mood disorder F39 ; Encounter for immunization Z23 and Chronic viral hepatitis C B18.2 [facility] [address] [place] [id number] [place] [address] 34094- 8943 Jan, [facility] [address] [place] [id number] [place] [address] 87561- 2510 Jan, [facility] [address] [place] [id number] [place] [address] 27820- 6465 Dec, [facility] [address], [place] [address]- 0690 Dec, [facility] [address] [place] [id number] [place] [address] 03407- 0579 Nov, [facility] [address] [place] [id number] [address]- 3167 Nov, Weakness of both legs M62.81 [facility] [address] [place] [id number] [place] [address] 09919- 3559 Nov, [facility] [id number] [place] [address] 06140- 9980 Nov, [facility] [address] [place] [id number] [place] [address] 23371- 9067 Nov, [facility] [address] [place] [id number] [place] [address] 29008- 6282 Nov, Eczema, unspecified type L30.9 [facility] [id number] [place] [address] 65631- 5448 Nov, [facility] [address] [place] [address] 84635- 8966 Nov, Eczema, unspecified type L30.9 ; Cessation of tobacco use in previous 12 months Z87.891 and Weakness of both legs M62.81 [facility] [address], [place] [address]- 5210 Oct, [facility] [address], [place] [address]- 2549 Oct, [facility] [id number] [place] [address] 88421- 5975 Oct, [facility] [address], [place] [address]- 0231 Oct, Chronic viral hepatitis C B18.2 [facility] [address], [place] [address]- 4911 Sep, [facility] [address], [place] [address]- 4410 16 Sep, 2015 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 and Generalized anxiety disorder F41.1 [facility] [address], [place] [address]- 3668 Sep, [facility] [address] [place] [id number] [place] [address] 76849- 0708 August, [facility] [address] [place] [id number] [place] [address] 67764- 1583 August, Hyperammonemia E72.20 [facility] [address] [place] [id number] [place] [address] 15819- 8866 August, Hyperammonemia E72.20 [facility] [address] [place] [id number] [place] [address] 21527- 0499 August, Hyperammonemia E72.20 and Chronic hepatitis C without hepatic coma B18.2 [facility] [address] [place] [id number] [place] [address] 97902- 2783 August, Chronic viral hepatitis C B18.2 [facility] [address] [place] [id number] [place] [address] 99210- 4732 August, [facility] [address] [place] [id number] [address]- 2099 Jul, Chronic viral hepatitis C B18.2 and Hyperammonemia E72.20 [facility] [address], [place] [address]- 3127 Jul, Chronic viral hepatitis C B18.2 [facility] [address] [place] [id number] [address]- 0674 Jul, [facility] [address], [place] [address]- 4376 Jul, [facility] [id number] [place] [address] 74449- 1457 Jun, [facility] [address] [place] [address]- 1627 23 Jun, 2015 Chronic viral hepatitis C B18.2 and Hyperammonemia E72.20 [facility] [address] [place] [address]- 2650 21 Jun, 2015 [facility] [address] [place] [id number] [place] [address], [place] [address]- 8541 18 Jun, 2015 [facility] [address] [place] [id number] [place] [address], [place] [address]- 2329 16 Jun, 2015 Chronic viral hepatitis C B18.2 [facility] [address] [place] [id number] [place] [address], [place] [address]- 3483 10 Jun, 2015 [facility] [address] [place] [id number] [place] [address]- 2194 07 Jun, 2015 Chronic viral hepatitis C B18.2 [facility] [address] [place] [address]- 7433 17 May, 2015 Hepatitis C, chronic B18.2 and Chronic viral hepatitis C B18.2 [facility] [address] [place] [address]- 0826 May, [facility] [address], [place] [address]- 5790 Apr, [facility] [address], [place] [address]- 2471 Apr, Chronic viral hepatitis C B18.2 and Hyperammonemia E72.20 [facility] [address], [place] [address]- 0573 Apr, Chronic viral hepatitis C B18.2 [facility] [address], [place] [address]- 5687 Apr, Hyperammonemia E72.20 [facility] [address], [place] [address]- 1421 Apr, [facility] [address] [place] [id number] [place] [address] 01700- 9061 Apr, [facility] [address] 44157- 2899 Apr, Chronic hepatitis C without hepatic coma B18.2 ; Hyperammonemia E72.20 and Chronic viral hepatitis C B18.2 [place] [address] 76072- 3404 Mar, Shortness of breath R06.02 [facility] [address] [place] [id number] [place] [address] 78621- 6343 Mar, Mood disorder F39 and Major depressive disorder, recurrent episode, unspecified 296.30 [place] [address] 99267- 3570 Mar, [facility] [address] 37745- 9227 Mar, [facility] [address] [place] [id number] [place] [address] 77111- 8920 Mar, [facility] [address] [place] [id number] [place] [address] 92160 -0279 Mar, Seasonal allergies J30.2 ; Shortness of breath R06.02 and Cough R05 [place] [address] [place] [id number] [place] [address] 95958- 9571 Mar, Hyperammonemia E72.20 ; Mood disorder F39 and History of alcohol abuse Z87.898 [facility] [address] [place] [id number] [place] [address] 08866- 5095 Mar, Hyperammonemia E72.20 [place] [address] [place] [id number] [place] [address] 39281- 2604 Mar, [facility] [address] [place] [id number] [place] [address] 56072- 6527 Feb, [facility] [address], [place] [address]- 3132 Feb, [facility] [address] [place] [id number] [place] [address] 26754- 0278 Feb, Hyperammonemia E72.20 [facility] [address] [place] [id number] [place] [address] 94790- 9271 Feb, [facility] [address] [place] [id number] [place] [address] 41910- 7687 Feb, [facility] [address] [place] [id number] [place] [address] 07669- 3148 Feb, [facility] [address] [place] [id number] [place] [address] 95788- 7565 Feb, [facility] [address] [place] [id number] [place] [address] 40744- 8897 Feb, Chronic viral hepatitis C B18.2 [facility] [address] [place] [id number] [place] [address] 33006- 9030 Feb, Chronic viral hepatitis C B18.2 [facility] [address] [place] [id number] [place] [address] 82952- 1751 Feb, [facility] [id number] [place] [address] 80547- 6092 Feb, Chronic viral hepatitis C B18.2 and Confusion R41.0 [facility] [id number] [place] [address] 39517- 2314 Feb, [facility] [id number] [place] [address] 51854- 7539 Jan, [facility] [address] [place] [id number] [place] [address] 41906- 4111 Jan, Confusion R41.0 [facility] [address] [place] [id number] [place] [address] 87237- 1932 Jan, [facility] [address] [place] [id number] [address]- 7184 Jan, [facility] [address], [place] [address]- 6446 Jan, [facility] [address] [place] [id number] [place] [address] 57937- 5967 Jan, [facility] [address] [place] [address] 07852- 6827 Jan, Chronic viral hepatitis C B18.2 and 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 [facility] [address] [place] [id number] [place] [address] 09600- 9114 Jan, [facility] [address] [place] [id number] [place] [address] 72248- 6552 Jan, [facility] [address] [place] [id number] [place] [address] 39199- 7565 Jan, [facility] [address] [place] [id number] [place] [address] 91749- 0748 Jan, [facility] [address] [place] [address] 52992- 9453 Jan, Chronic viral hepatitis C B18.2 [facility] [address], [place] [address]- 8656 Jan, [facility] [id number] [place] [address] 34175- 7434 Jan, Back pain at L4-L5 level M54.5 and Confusion R41.0 [facility] [address], [place] [address]- 1663 Jan, [facility] [address] [place] [id number] [place] [address] 09948- 7470 30 Dec, 2014 Chronic viral hepatitis C B18.2 and Flu vaccine need V04.81 [facility] [address], [place] [address]- 6405 30 Dec, 2014 Chronic viral hepatitis C B18.2 [facility] [address] [place] [address] 30724- 9325 Dec, [facility] [address] [place] [id number] [place] [address] 83017- 7628 Dec, Polyuria 788.42 [facility] [address] [place] [id number] [place] [address] 42271- 2526 Dec, Polyuria 788.42 ; Polydipsia 783.5 ; Dizziness 780.4 and Hepatitis C, chronic 070.54 [facility] [address] [place] [id number] [place] [address] 64594- 4789 Dec, Major depressive disorder, recurrent episode, unspecified 296.30 and Generalized anxiety disorder 300.02 [facility] [address] [place] [id number] [place] [address] 46564- 0157 Nov, [facility] [address] 12727- 2034 Nov, [facility] [address] [place] [id number] [place] [address] 86701- 3750 Nov, [facility] [address] [place] [id number] [place] [address] 03515- 4383 Oct, [facility] [address] [place] [id number] [place] [address] 43331- 6178 Sep, [facility] [address] [place] [id number] [place] [address] 33678- 2160 August, Obsessive-compulsive disorders 300.3 ; Generalized anxiety disorder 300.02 and Major depressive disorder, recurrent episode, unspecified 296.30 [facility] [address] [place] [id number] [place] [address] 04149- 9185 August, Chronic hepatitis C without mention of hepatic coma 070.54 ; Hypertension 401.9 and Seasonal allergies 477.9 [facility] [address] [place] [id number] [place] [address] 49401- 0117 Jul, [facility] [address] [place] [address]- 6438 Jul, [facility] [address] [id number] [place] [address]- 9912 Jun, [facility] [place] [facility] [address] [id number] [place] [address]- 5174 Jun, [facility] [place] [facility] [address] [id number] [place] [address]- 3998 May, [facility] [place] [facility] [address] [id number] [place] [address]- 7027 May, [facility] [place] [facility] [address] [id number] [place] [address]- 7963 May, [facility] [place] [facility] [address] [id number] [place] [address]- 6427 May, [facility] [place] [facility] [address] [id number] [place] [address]- 6095 Apr, [facility] [place] [facility] [address] [id number] [place] [address]- 9667 Apr, [facility] [place] [facility] [address] [id number] [place] [address]- 2699 Apr, [facility] [place] [facility] [address] [id number] [place] [address]- 5015 Apr, [facility] [place] [facility] [address] [id number] [place] [address]- 8663 Apr, [facility] [place] [facility] [address] [id number] [place] [address]- 1650 Apr, [facility] [place] [facility] [address] [id number] [place] [address]- 2108 Mar, [facility] [place] [facility] [address] [id number] [place] [address]- 6956 Mar, [facility] [place] [facility] [address] [id number] [place] [address]- 3201 Mar, [facility] [place] [facility] [address] [id number] [place] [address]- 7922 Mar, [facility] [place] [facility] [address] [id number] [place] [address]- 0145 Mar, [facility] [place] [facility] [address] [id number] [place] [address]- 6010 Mar, [facility] [place] [facility] [address] [id number] [place] [address]- 9838 Mar, [facility] [place] [facility] [address] [id number] [place] 2521 Mar, [facility] [place] [facility] [address] [id number] [place] [address]- 6663 Mar, [facility] [place] [facility] [address] [id number] [place] [address]- 7460 Feb, [facility] [place] [facility] [address] [id number] [place] [address]- 7714 Feb, [facility] [place] [facility] [address] [id number] [place] [address]- 2809 Feb, [facility] [place] [facility] [address] [id number] [place] [address]- 9737 Feb, [facility] [place] [facility] [address] [id number] [place] [address]- 9284 Feb, [facility] [place] [facility] [address] [id number] [address]- 6150 Jan, [facility] [place] [facility] [address] [id number] [place] [address]- 8005 Jan, [facility] [place] [facility] [address] [id number] [place] [address]- 5450 Jan, [facility] [place] [facility] [address] [id number], [place] [address]- 9047 Jan, [facility] [place] [facility] [address] [id number], [place] [address]- 9762 Jan, [facility] [place] [facility] [address] [id number] [place] [address]- 1872 Jan, [facility] [place] [facility] [address] [id number] [place] [address]- 0147 Jan, [facility] [place] [facility] [address] [id number] [place] [address]- 3539 Jan, [facility] [place] [facility] [address] [id number] [place] [address]- 8496 Jan, [facility] [place] [facility] [address] [id number] [place] [address] Nov, [facility] [place] [facility] [address] [id number] [place] [address] Nov, [facility] [place] [facility] [address] [id number] [place] [address] Nov, [facility] [place] [facility] [address] [id number] [place] [address] Oct, [facility] [place] [facility] [address] [id number] [place] [address] Oct, [facility] [place] [facility] [address] [facility] [id number] [place] [address] Oct, [facility] [place] [facility] [address] [id number] [place] [address] Oct, [facility] [place] [facility] [address] [id number] [place] [address] Sep, [facility] [place] [facility] [address] [id number] [place] [address] Sep, [facility] [place] [facility] [address] [id number] [place] [address] Sep, [facility] [place] [facility] [address] [facility] [id number] [place] [address] Sep, [facility] [place] [facility] [address] [id number] [place] [address] Sep, [facility] [place] [facility] [address] [id number] [place] [address] Sep, [facility] [place] [facility] [address] [id number] [place] [address] August, [facility] [place] [facility] [address] [id number] [place] [address] August, [facility] [place] [facility] [address] [id number] [place] [address] Jul, [facility] [place] [facility] [address] [id number] [place] [address] Jul, [facility] [place] [facility] [address] [id number] [place] [address] Jul, [facility] [place] [facility] [address] [id number] [place] [address] Jul, [facility] [place] [facility] [address] [id number] [place] [address] Jul, [facility] [place] [facility] [address] [id number] [place] [address] Jul, [facility] [place] [facility] [address] [id number] [place] [address] Jul, [facility] [place] [facility] [address] [id number] [place] [address] Jul, [facility] [place] [facility] [address] [id number] [place] [address] Jul, [facility] [place] [facility] [address] [id number] [place] [address] Jul, [facility] [place] [facility] [address] [id number] [place] [address] Jun, [facility] [place] [facility] [address] [id number] [place] [address] Jun, [facility] [place] [facility] [address] [id number] [place] [address] Jun, [facility] [place] [facility] [address] [id number] [place] [address] Jun, [facility] [place] [facility] [address] [id number] [place] [address] May, [facility] [place] [facility] [address] [id number] [place] [address] May, [facility] [place] [facility] [address] [id number] [place] [address] May, [facility] [place] [facility] [address] [id number] [place] [address] May, [facility] [place] [facility] [address] [id number] [place] [address] May, [facility] [place] [facility] [address] [id number] [place] [address] May, [facility] [place] [facility] [address] [id number] [place] [address] Mar, [facility] [place] [facility] [address] [id number] [place] [address] 16 Mar, 2013 [facility] [place] [facility] [address] [id number] [place] [address] 16 Mar, 2013 [facility] [place] [facility] [address] [id number] [place] [address] 16 Mar, 2013 [facility] [place] [facility] [address] [id number] [place] [address] Mar, [facility] [place] [facility] [address] [id number] [place] [address] 16 Mar, 2013 [facility] [place] [facility] [address] [id number] [place] [address] Feb, [facility] [place] [facility] [address] [id number] [place] [address] Feb, 2012 [facility] [place] [facility] [address] [id number] [place] [address] Feb, [facility] [place] [facility] [address] [id number] [place] [address] Feb, [facility] [place] [facility] [address] [id number] [place] [address] Feb, [facility] [place] [facility] [address] [id number] [place] [address] Feb, [facility] [place] [facility] [address] [id number] [place] [address] Feb, [facility] [place] [facility] [address] [id number] [place] [address] 07 Feb, 2013 [facility] [place] [facility] [address] [id number] [place] [address] 18 Jan, 2013 [facility] [place] [facility] [address] [id number] [place] [address] 18 Jan, 2013 [facility] [place] [facility] [address] [id number] [place] [address] 17 Jan, 2013 [facility] [place] [facility] [address] [id number] [place] [address] 16 Jan, 2013 [facility] [place] [facility] [address] [id number] [place] [address] 16 Jan, 2012 [facility] [place] [facility] [address] [id number] [place] [address] 14 Jan, 2013 [facility] [place] [facility] [address] [id number] [place] [address] 14 Jan, 2012 [facility] [place] [facility] [address] [id number] [place] [address] 11 Jan, 2013 [facility] [place] [facility] [address] [id number] [place] [address] Jan, [facility] [place] [facility] [address] [id number] [place] [address] Jan, [facility] [place] [facility] [address] [id number] [place] [address] 1390 Dec, [facility] [place] [facility] [address] [id number] [place] [address] Dec, [facility] [place] [facility] [address] [id number] [place] [address] Dec, [facility] [place] [facility] [address] [id number] [place] [address] Nov, [facility] [place] [facility] [address] [id number] [place] [address] Nov, [facility] [place] [facility] [address] [id number] [place] [address] Nov, [facility] [place] [facility] [address] [id number] [place] [address] Nov, [facility] [place] [facility] [address] [id number] [place] [address] 9467 Nov, [facility] [place] [facility] [address] [id number] [place] [address]143 Nov, [facility] [place] [facility] [address] [id number] [place] [address] Nov, [facility] [place] [facility] [address] [id number] [place] [address] 9823 Nov, [facility] [place] [facility] [address] [id number] [place] [address] Nov, [facility] [place] [facility] [address] [id number] [place] [address] Nov, [facility] [place] [facility] [address] [id number] [place] [address] Oct, [facility] [place] [facility] [address] [id number] [place] [address]28 Oct, [facility] [address] [id number] [place] [address] Oct, [facility] [address] [id number] [place] [address] 39[address] Oct, [facility] [address] [id number] [place] [address] 8717 Oct, [facility] [address] [id number] [place] [address]135 Oct, [facility] [address] [id number] [place] [address] 8567 Oct, [facility] [address] [id number] [place] [address]792 Oct, [facility] [address] [id number] [place] [address] Sep, [facility] [address] [id number] [place] [address] Sep, [facility] [address] [id number] [place] [address] Sep, [facility] [address] [id number] [place] [address] Sep, [facility] [address] [id number] [place] [address] August, [facility] [place] [facility] [address] [id number] [place] [address]26 August, [facility] [address] [id number] [place] [address] August, [facility] [address] [place] [id number] Jul, [facility] [address] [place] [id number] Jul, [facility] [address] [id number] [place] [address] Jun, [facility] [place] [facility] [address] [id number] [place] [address] 0437 May, [facility] [place] [facility] [address] [id number] [place] [address] 2506 May, [facility] [place] [facility] [address] [facility] [id number] [place] [address] 2542 Apr, [facility] [place] [facility] [address] [id number] [place] [address]46 Feb, [facility] [place] [facility] [address] [id number] [place] [address] 3555 Feb, [facility] [place] [facility] [address] [id number], [place] [address] Jan, [facility] [place] [facility] [address] [id number] [place] [address] 6836 Jan, [facility] [place] [facility] [address] [id number], [place] [address] Jan, [facility] [place] [facility] [address] [id number], [place] [address] Jan, [facility] [place] [facility] [address] [facility] [id number], [place] [address] Jan, [facility] [place] [facility] [address] [facility] [id number], [place] [address] Dec, [facility] [place] [facility] [address] [facility] [id number], [place] [address] 2546 Dec, [facility] [address] [facility] [id number] [id number] Nov, [facility] [place] [facility] [address] [facility] [id number], [place] [address]366 Nov, [facility] [place] [facility] [address] [facility] [id number], [place] [address]- [address]796 Nov, [facility] [place] [facility] [address] [facility] [id number], [place] [address] 3900 Nov, [facility] [address] [id number] [place] [address] August, [facility] [place] [facility] [address] [id number] [place] [address] August, [facility] [place] [facility] [address] [id number] [place] [address]- 8636 August, [facility] [place] [facility] [address] [id number] [place] [address] Jul, [facility] [place] [facility] [address] [id number] [place] [address] 8234 May, [facility] [place] [facility] [address] [id number] [place] [address] 2660 May, [facility] [address] [id number] [place] [address] 1742 May, [facility] [place] [facility] [address] [id number], [place] [address] Mar, [facility] [place] [facility] [address] [id number] [place] [address]- 4490 Jan, [facility] [place] [facility] [address] [facility] [id number], [place] [address]497 Jan, [facility] [place] [facility] [address] [id number] [place] [address] 0694 Oct, [facility] [place] [facility] [address] [id number], [place] [address] 5810 August, [facility] [place] [facility] [address] [id number] [place] [address]- 4412 Jan, [facility] [place] [facility] [address] [id number], [place] [address] 9455 Jan, [facility] [place] [facility] [address] [id number], [place] [address] Jan, [facility] [address] [facility] [id number] [place] [address]- 8084 Jan, IMMUNIZATIONS No Known Immunizations SOCIAL HISTORY Never Assessed REASON FOR VISIT Lab (walk-in) PLAN OF CARE VITAL SIGNS MEDICATIONS Unknown Medications RESULTS No Results PROCEDURES Procedure Date Ordered Result Body Site LAB NOT BILLED BY [facility] July 13, 2017 VENIPUNCT, ROUTINE* July 13, 2017 INSTRUCTIONS MEDICATIONS ADMINISTERED No Known Medications [...]
--- OUTSIDE RECORDS SUMMARY | 2018-02-08 21:20 | XMS REPORT ---
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 Name Role Phone ROSIO IRBY Unavailable PROBLEMS Type Condition ICD9-CM Code CFZ25-EE Code Onset Dates Condition Status SNOMED Code Problem History of alcohol abuse Z87.898 Active 746213193 Problem Mood disorder F39 Active 38744704 Problem Generalized anxiety disorder F41.1 Active 87274124 Problem Hypertension, benign I10 Active 02099741 Problem Allergic rhinitis, unspecified allergic rhinitis type J30.9 Active 55086798 Problem Chronic hepatitis C without hepatic coma B18.2 Active 510196447 Problem Obsessive compulsive disorder F42 Active 456481781 Problem Hyperammonemia E72.20 Active 3621652 ALLERGIES No Information ENCOUNTERS Encounter Location Date Diagnosis [place] [address] [address]- [address] Oct, Bronchitis J40 [place] [address] 20048- 6153 Oct, Chronic hepatitis C without hepatic coma B18.2 and Cough R05 [place] [address] [place] [id number] [place] [address] 78067- 6753 Sep, Chronic hepatitis C without hepatic coma B18.2 [place] [address] [place] [id number] [place] [address] 62469- 8628 August, Chronic hepatitis C without hepatic coma B18.2 [place] [address] 53757- 0834 Jul, Chronic hepatitis C without hepatic coma B18.2 [facility] [address] [place] [id number] [place] [address] 22837- 9185 Jul, Generalized anxiety disorder F41.1 ; Mood disorder F39 and History of hepatitis C Z86.19 [facility] [address] [address] 1892 Jul, Chronic hepatitis C without hepatic coma B18.2 [facility] [id number] [place] [address] 84143- 1116 Jun, Chronic hepatitis C without hepatic coma B18.2 [facility] [address] [place] [id number] [place] [address] 32684- 6146 Jun, [facility] [address] [place] [id number] [place] [address] 51109- 0959 May, Chronic hepatitis C without hepatic coma B18.2 [facility] [address] [place] [id number] [place] [address] 54502- 0448 May, Hypertension, benign I10 [facility] [address] [place] [id number] [place] [address] 60607- 4822 Apr, Chronic hepatitis C without hepatic coma B18.2 [facility] [id number] [place] [address] 41992- 5317 Apr, Hypertension, benign I10 [facility] [address] [place] [id number] [place] [address] 21676- 5350 Mar, Chronic hepatitis C without hepatic coma B18.2 [facility] [id number] [place] [address] 00440- 4789 Mar, Hypertension, benign I10 [facility] [address] [place] [id number] [place] [address] 82945- 2540 Mar, Encounter for immunization Z23 ; Hypertension, benign I10 and Strain of right Achilles tendon, initial encounter S86.011A [facility] [address] [place] [id number] [place] [address] 34779- 0876 Feb, Chronic hepatitis C without hepatic coma B18.2 [facility] [id number] [place] [address] 07091- 7674 Jan, Chronic hepatitis C without hepatic coma B18.2 [facility] [address] [address] Jan, Toe pain, right M79.674 and Cellulitis of foot, right L03.115 [facility] [address] [place] [address] 2546 Dec, Chronic hepatitis C without hepatic coma B18.2 [facility] [address] [place] [id number] [place] [address], [place] [address]- 1006 Nov, Chronic hepatitis C without hepatic coma B18.2 and Eczema of both hands L30.9 [facility] [address] [place] [id number] [place] [address], [place] [address]- 9756 Nov, [facility] [address] [place] [id number] [place] [address]- 7679 Oct, [facility] [address] [place] [id number] [place] [address], [place] [address]- 1895 Sep, [facility] [address] [address]- 5014 August, [facility] [address] [place] [id number] [place] [address]- 0216 August, [facility] [address] [place] [address]- 7819 Jul, [facility] [address] [place] [address]- 3630 Jul, [facility] [address] [address] 2549 Jun, [facility] [address] [place] [id number] [place] [address] 2546 Jun, [facility] [address] [place] [address] 2546 May, [facility] [address] [place] [id number] [place] [address] 66018- 0364 Apr, Chronic hepatitis C without hepatic coma B18.2 ; Hyperglycemia R73.9 and Hypertension, benign I10 [facility] [address] [place] [id number] [place] [address] 35263- 1316 Apr, Chronic hepatitis C without hepatic coma B18.2 ; Mood disorder F39 ; Hypertension, benign I10 and Hyperglycemia R73.9 [facility] [address] [place] [id number] [place] [address] 90257- 9094 Apr, [facility] [address] [place] [id number] [place] [address] 21649- 8130 Apr, [facility] [address] 78654- 0113 Apr, [facility] [address] [place] [id number] [place] [address] 44975- 0271 Feb, [facility] [address] [place] [id number] [place] [address] 04352- 1036 Feb, [facility] [address] [place] [id number] [place] [address] 64869- 8064 Feb, [facility] [address] [place] [id number] [place] [address] 73217- 9371 Feb, [facility] [address] [place] [id number] [place] [address] 21518- 0754 Jan, [facility] [address] [place] [id number] [place] [address] 45070- 0417 Jan, Chronic hepatitis C without hepatic coma B18.2 ; Mood disorder F39 ; Encounter for immunization Z23 and Chronic viral hepatitis C B18.2 [facility] [address] [place] [id number] [place] [address] 39775- 4962 Jan, [facility] [address] [place] [id number] [place] [address] 53027- 7243 Jan, [facility] [address] [place] [id number] [place] [address] 14647- 6800 Dec, [facility] [address] [address]- 8468 Dec, [facility] [address] [place] [id number] [place] [address] 36871- 2810 Nov, [facility] [address] [place] [id number] [address]- 5692 Nov, Weakness of both legs M62.81 [facility] [address] [place] [id number] [place] [address] 45367- 3277 Nov, [facility] [id number] [place] [address] 19277- 7259 Nov, [facility] [address] [place] [id number] [place] [address] 48512- 0850 Nov, [facility] [address] [place] [id number] [place] [address] 07497- 5177 Nov, Eczema, unspecified type L30.9 [facility] [id number] [place] [address] 56886- 7659 Nov, [facility] [id number] [place] [address] 68613- 8067 Nov, Eczema, unspecified type L30.9 ; Cessation of tobacco use in previous 12 months Z87.891 and Weakness of both legs M62.81 [facility] [address] [address]- 5093 Oct, [facility] [address] [address]- 254 Oct, [facility] [id number] [place] [address] 53793- 1432 Oct, [facility] [address] [address]- 9203 Oct, Chronic viral hepatitis C B18.2 [facility] [address] [address]- 1119 Sep, [facility] [address] [address]- 9395 16 Sep, 2015 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 and Generalized anxiety disorder F41.1 [facility] [address] [address]- 6964 Sep, [facility] [address] [place] [id number] [place] [address] 03305- 8744 August, [facility] [address] [place] [id number] [place] [address] 43371- 5613 August, Hyperammonemia E72.20 [facility] [address] [place] [id number] [place] [address] 72844- 2489 August, Hyperammonemia E72.20 [facility] [address] [place] [id number] [place] [address] 71677- 6112 August, Hyperammonemia E72.20 and Chronic hepatitis C without hepatic coma B18.2 [facility] [address] [place] [id number] [place] [address] 17235- 2690 August, Chronic viral hepatitis C B18.2 [facility] [address] [place] [id number] [place] [address] 97822- 3633 August, [facility] [address] [place] [id number] [address]- 5434 Jul, Chronic viral hepatitis C B18.2 and Hyperammonemia E72.20 [facility] [address] [address]- 8232 Jul, Chronic viral hepatitis C B18.2 [facility] [address] [place] [id number] [address]- 0467 Jul, [facility] [address] [address]- 6749 Jul, [facility] [id number] [place] [address] 18182- 4601 Jun, [facility] [address] [address]- 2405 23 Jun, 2015 Chronic viral hepatitis C B18.2 and Hyperammonemia E72.20 [facility] [address] [address]- 8753 21 Jun, 2015 [facility] [address] [place] [id number] [place] [address] 73487- 7610 18 Jun, 2015 [facility] [address] [place] [id number] [place] [address], [place] [address]- 8690 16 Jun, 2015 Chronic viral hepatitis C B18.2 [facility] [address] [place] [id number] [place] [address], [place] [address]- 1367 10 Jun, 2015 [facility] [address] [place] [id number] [place] [address], [place] [address]- 1242 07 Jun, 2015 Chronic viral hepatitis C B18.2 [facility] [address] [address]- 8095 17 May, 2015 Chronic viral hepatitis C B18.2 and Hepatitis C, chronic B18.2 [facility] [address] [place] [address]- 8305 May, [facility] [address] [address]- 9023 Apr, [facility] [address] [address]- 4428 Apr, Chronic viral hepatitis C B18.2 and Hyperammonemia E72.20 [facility] [address] [address]- 1491 Apr, Chronic viral hepatitis C B18.2 [facility] [address] [address]- 2984 Apr, Hyperammonemia E72.20 [facility] [address] [address]- 9148 Apr, [facility] [address] [place] [id number] [place] [address] 00810- 2682 Apr, [facility] [address] 63954- 6338 Apr, Chronic hepatitis C without hepatic coma B18.2 ; Chronic viral hepatitis C B18.2 and Hyperammonemia E72.20 [facility] [address] 84091- 9163 Mar, Shortness of breath R06.02 [facility] [address] [place] [id number] [place] [address] 48892- 8001 Mar, Mood disorder F39 and Major depressive disorder, recurrent episode, unspecified 296.30 [place] [address] 89653- 5709 Mar, [facility] [address] 81288- 5953 Mar, [facility] [address] [place] [id number] [place] [address] 56911- 3066 Mar, [facility] [address] [place] [id number] [place] [address] 03243 -0178 Mar, Seasonal allergies J30.2 ; Shortness of breath R06.02 and Cough R05 [place] [address] [place] [id number] [place] [address] 78469- 9506 Mar, Hyperammonemia E72.20 ; Mood disorder F39 and History of alcohol abuse Z87.898 [facility] [address] [place] [id number] [place] [address] 81835- 6381 Mar, Hyperammonemia E72.20 [facility] [address] [place] [id number] [place] [address] 82934- 3003 Mar, [facility] [address] [place] [id number] [place] [address] 15908- 6104 Feb, [facility] [address] [address]- 3973 Feb, [facility] [address] [place] [id number] [place] [address] 12052- 4392 Feb, Hyperammonemia E72.20 [facility] [address] [place] [id number] [place] [address] 03641- 5436 Feb, [facility] [address] [place] [id number] [place] [address] 77903- 3025 Feb, [facility] [address] [place] [id number] [place] [address] 75884- 6913 Feb, [facility] [address] [place] [id number] [place] [address] 55507- 8280 Feb, [facility] [address] [place] [id number] [place] [address] 17986- 6296 Feb, Chronic viral hepatitis C B18.2 [facility] [address] [place] [id number] [place] [address] 23200- 2292 Feb, Chronic viral hepatitis C B18.2 [facility] [address] [place] [id number] [place] [address] 60926- 0608 Feb, [facility] [id number] [place] [address] 83457- 7917 Feb, Chronic viral hepatitis C B18.2 and Confusion R41.0 [facility] [address] [place] [address] 95564- 4870 Feb, [facility] [id number] [place] [address] 79421- 2469 Jan, [facility] [address] [place] [id number] [place] [address] 78893- 4301 Jan, Confusion R41.0 [facility] [address] [place] [id number] [place] [address] 29328- 3562 Jan, [facility] [address] [place] [id number] [address]- 4248 Jan, [facility] [address] [address]- 4966 Jan, [facility] [address] [place] [id number] [place] [address] 76718- 1928 Jan, [facility] [id number] [place] [address] 90505- 0432 Jan, Chronic viral hepatitis C B18.2 and 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 [facility] [address] [place] [id number] [place] [address] 90520- 2235 Jan, [facility] [address] [place] [id number] [place] [address] 07475- 5788 Jan, [facility] [address] [place] [id number] [place] [address] 91449- 9351 Jan, [facility] [address] [place] [id number] [place] [address] 60701- 2384 Jan, [facility] [id number] [place] [address] 19873- 2818 Jan, Chronic viral hepatitis C B18.2 [facility] [address] [address]- 0603 Jan, [facility] [id number] [place] [address] 12431- 1961 Jan, Back pain at L4-L5 level M54.5 and Confusion R41.0 [facility] [address] [address]- 4725 Jan, [facility] [address] [place] [id number] [place] [address] 17623- 1618 30 Dec, 2014 Chronic viral hepatitis C B18.2 and Flu vaccine need V04.81 [facility] [address] [address]- 0404 30 Dec, 2014 Chronic viral hepatitis C B18.2 [facility] [id number] [place] [address] 16190- 8742 Dec, [facility] [address] [place] [id number] [place] [address] 54971- 3431 Dec, Polyuria 788.42 [facility] [address] [place] [id number] [place] [address] 69135- 2202 Dec, Polyuria 788.42 ; Polydipsia 783.5 ; Dizziness 780.4 and Hepatitis C, chronic 070.54 [facility] [address] [place] [id number] [place] [address] 92195- 1638 Dec, Major depressive disorder, recurrent episode, unspecified 296.30 and Generalized anxiety disorder 300.02 [facility] [address] [place] [id number] [place] [address] 51390- 1227 Nov, [facility] [address] 24336- 8490 Nov, [facility] [address] [place] [id number] [place] [address] 74780- 0957 Nov, [facility] [address] [place] [id number] [place] [address] 31176- 2267 Oct, [facility] [address] [place] [id number] [place] [address] 69621- 3869 Sep, [facility] [address] [place] [id number] [place] [address] 27262- 7077 August, Obsessive-compulsive disorders 300.3 ; Generalized anxiety disorder 300.02 and Major depressive disorder, recurrent episode, unspecified 296.30 [facility] [address] [place] [id number] [place] [address] 78494- 1663 August, Chronic hepatitis C without mention of hepatic coma 070.54 ; Hypertension 401.9 and Seasonal allergies 477.9 [facility] [address] [place] [id number] [place] [address] 92703- 6367 Jul, [facility] [address] [place] [address]- 6922 Jul, [facility] [address] [id number] [place] [address]- 8359 Jun, [facility] [place] [facility] [address] [id number] [place] [address]- 7803 Jun, [facility] [place] [facility] [address] [id number] [place] [address]- 9566 May, [facility] [place] [facility] [address] [id number] [place] [address]- 5489 May, [facility] [place] [facility] [address] [id number] [place] [address]- 9558 May, [facility] [place] [facility] [address] [id number] [place] [address]- 2831 May, [facility] [place] [facility] [address] [id number] [place] [address]- 4720 Apr, [facility] [place] [facility] [address] [id number] [place] [address]- 7777 Apr, [facility] [place] [facility] [address] [id number] [place] [address]- 4266 Apr, [facility] [place] [facility] [address] [id number] [place] [address]- 2584 Apr, [facility] [place] [facility] [address] [id number] [place] [address]- 4109 Apr, [facility] [place] [facility] [address] [id number] [place] [address]- 7809 Apr, [facility] [place] [facility] [address] [id number] [place] [address]- 3088 Mar, [facility] [place] [facility] [address] [id number] [place] [address]- 6256 Mar, [facility] [place] [facility] [address] [id number] [place] [address]- 5534 Mar, [facility] [place] [facility] [address] [id number] [place] [address]- 8281 Mar, [facility] [place] [facility] [address] [id number] [place] [address]- 0135 Mar, [facility] [place] [facility] [address] [id number] [place] [address]- 4757 Mar, [facility] [place] [facility] [address] [id number] [place] [address]- 5272 Mar, [facility] [place] [facility] [address] [id number] [place] 6020 Mar, [facility] [place] [facility] [address] [id number] [place] [address]- 0695 Mar, [facility] [place] [facility] [address] [id number] [place] [address]- 6173 Feb, [facility] [place] [facility] [address] [id number] [place] [address]- 8290 Feb, [facility] [place] [facility] [address] [id number] [place] [address]- 1024 Feb, [facility] [place] [facility] [address] [id number] [place] [address]- 7240 Feb, [facility] [place] [facility] [address] [id number] [place] [address] Feb, [facility] [place] [facility] [address] [id number] [address] Jan, [facility] [place] [facility] [address] [id number] [place] [address] Jan, [facility] [place] [facility] [address] [id number] [place] [address] Jan, [facility] [place] [facility] [address] [id number] [place] [address] Jan, [facility] [place] [facility] [address] [id number] [place] [address] Jan, [facility] [place] [facility] [address] [id number] [place] [address] Jan, [facility] [place] [facility] [address] [id number] [place] [address] Jan, [facility] [place] [facility] [address] [id number] [place] [address] Jan, [facility] [place] [facility] [address] [id number] [place] [address] Jan, [facility] [place] [facility] [address] [id number] [place] [address] Nov, [facility] [place] [facility] [address] [id number] [place] [address] Nov, [facility] [place] [facility] [address] [id number] [place] [address] Nov, [facility] [place] [facility] [address] [id number] [place] [address] Oct, [facility] [place] [facility] [address] [id number] [place] [address] Oct, [facility] [place] [facility] [address] [facility] [id number] [place] [address] Oct, [facility] [place] [facility] [address] [id number] [place] [address] Oct, [facility] [place] [facility] [address] [id number] [place] [address] Sep, [facility] [place] [facility] [address] [id number] [place] [address] Sep, [facility] [place] [facility] [address] [id number] [place] [address] Sep, [facility] [place] [facility] [address] [facility] [id number] [place] [address] Sep, [facility] [place] [facility] [address] [id number] [place] [address] Sep, [facility] [place] [facility] [address] [id number] [place] [address] Sep, [facility] [place] [facility] [address] [id number] [place] [address] August, [facility] [place] [facility] [address] [id number] [place] [address] August, [facility] [place] [facility] [address] [id number] [place] [address] Jul, [facility] [place] [facility] [address] [id number] [place] [address] Jul, [facility] [place] [facility] [address] [id number] [place] [address] Jul, [facility] [place] [facility] [address] [id number] [place] [address] Jul, [facility] [place] [facility] [address] [id number] [place] [address] Jul, [facility] [place] [facility] [address] [id number] [place] [address] Jul, [facility] [facility] [place] [facility] [address] [id number] [place] [address] Jul, [facility] [place] [facility] [address] [id number] [place] [address] Jul, [facility] [place] [facility] [address] [id number] [place] [address] Jul, [facility] [place] [facility] [address] [id number] [place] [address] Jul, [facility] [place] [facility] [address] [id number] [place] [address] Jun, [facility] [place] [facility] [address] [id number] [place] [address] Jun, [facility] [place] [facility] [address] [id number] [place] [address] Jun, [facility] [place] [facility] [address] [id number] [place] [address] Jun, [facility] [place] [facility] [address] [id number] [place] [address] May, [facility] [place] [facility] [address] [id number] [place] [address] May, [facility] [place] [facility] [address] [id number] [place] [address] May, [facility] [place] [facility] [address] [id number] [place] [address] May, [facility] [place] [facility] [address] [id number] [place] [address] May, [facility] [place] [facility] [address] [id number] [place] [address] May, [facility] [place] [facility] [address] [id number] [place] [address] Mar, [facility] [place] [facility] [address] [id number] [place] [address] 16 Mar, 2013 [facility] [place] [facility] [address] [id number] [place] [address] 46[address] 16 Mar, 2013 [facility] [place] [facility] [address] [id number] [place] [address] 16 Mar, 2013 [facility] [place] [facility] [address] [id number] [place] [address] Mar, [facility] [place] [facility] [address] [id number] [place] [address] 16 Mar, 2013 [facility] [place] [facility] [address] [id number] [place] [address] Feb, [facility] [place] [facility] [address] [id number] [place] [address] Feb, 2012 [facility] [place] [facility] [address] [id number] [place] [address] Feb, [facility] [place] [facility] [address] [id number] [place] [address] Feb, [facility] [place] [facility] [address] [id number] [place] [address] Feb, [facility] [place] [facility] [address] [id number] [place] [address] Feb, [facility] [place] [facility] [address] [id number] [place] [address] Feb, [facility] [place] [facility] [address] [id number] [place] [address] 07 Feb, 2013 [facility] [place] [facility] [address] [id number] [place] [address] 18 Jan, 2013 [facility] [place] [facility] [address] [id number] [place] [address] 18 Jan, 2013 [facility] [place] [facility] [address] [id number] [place] [address] 17 Jan, 2013 [facility] [place] [facility] [address] [id number] [place] [address] 16 Jan, 2013 [facility] [place] [facility] [address] [id number] [place] [address]- [address] 16 Jan, 2012 [facility] [place] [facility] [address] [id number] [place] [address]- [address] 14 Jan, 2013 [facility] [place] [facility] [address] [id number] [place] [address]- [address] 14 Jan, 2012 [facility] [place] [facility] [address] [id number] [place] [address]- 39[address] 11 Jan, 2013 [facility] [place] [facility] [address] [id number] [place] [address] Jan, [facility] [place] [facility] [address] [id number] [place] [address] Jan, [facility] [place] [facility] [address] [id number] [place] [address] Dec, [facility] [place] [facility] [address] [id number] [place] [address] Dec, [facility] [place] [facility] [address] [id number] [place] [address] Dec, [facility] [place] [facility] [address] [id number] [place] [address] Nov, [facility] [place] [facility] [address] [id number] [place] [address] Nov, [facility] [place] [facility] [address] [id number] [place] [address] 27[address] Nov, [facility] [place] [facility] [address] [id number] [place] [address] Nov, [facility] [place] [facility] [address] [id number] [place] [address] Nov, [facility] [place] [facility] [address] [id number] [place] [address] Nov, [facility] [place] [facility] [address] [id number] [place] [address]- 7066 Nov, [facility] [place] [facility] [address] [id number] [place] [address]- [address]252 Nov, [facility] [place] [facility] [address] [id number] [place] [address]- 0848 Nov, [facility] [place] [facility] [address] [id number] [place] [address]- 2015 Nov, [facility] [place] [facility] [address] [id number] [place] [address]207 Oct, [facility] [place] [facility] [address] [id number] [place] [address] Oct, [facility] [address] [id number] [place] [address] Oct, [facility] [address] [id number] [place] [address] 7914 Oct, [facility] [address] [id number] [place] [address] 0410 Oct, [facility] [address] [id number] [place] [address]- 9716 Oct, [facility] [address] [id number] [place] [address]- 2534 Oct, [facility] [address] [id number] [place] [address]- 74[address] Oct, [facility] [address] [id number] [place] [address] Sep, [facility] [address] [id number] [place] [address] 1083 Sep, [facility] [address] [id number] [place] [address]- 6[address] Sep, [facility] [address] [id number] [place] [address] 0[address] Sep, [facility] [address] [id number] [place] [address]- 8[address] August, [facility] [place] [facility] [address] [id number] [place] [address]- 1826 August, [facility] [address] [id number] [place] [address] August, [facility] [address] [id number] Jul, [facility] [address] [id number] Jul, [facility] [address] [id number] [place] [address] 16[address] Jun, [facility] [place] [facility] [address] [id number] [place] [address]- 5383 May, [facility] [place] [facility] [address] [id number] [place] [address]- 6056 May, [facility] [place] [facility] [address] [facility] [id number] [place] [address] 2543 Apr, [facility] [place] [facility] [address] [id number] [place] [address]- 2546 Feb, [facility] [place] [facility] [address] [id number] [place] [address]- 9111 Feb, [facility] [place] [facility] [address] [id number] [place] [address]66 Jan, [facility] [place] [facility] [address] [id number] [place] [address]- 8316 Jan, [facility] [place] [facility] [address] [id number] [place] [address] Jan, [facility] [place] [facility] [address] [id number] [place] [address]- 1129 Jan, [facility] [place] [facility] [address] [facility] [id number] [place] [address]- 6[address] Jan, [facility] [place] [facility] [address] [facility] [id number] [place] [address]- 2546 Dec, [facility] [place] [facility] [address] [facility] [id number] [place] [address] 2546 Dec, [facility] [address] [facility] [id number] [id number] Nov, [facility] [place] [facility] [address] [facility] [id number] [place] [address]- [address] Nov, [facility] [place] [facility] [address] [facility] [id number] [place] [address]- 4556 Nov, [facility] [place] [facility] [address] [facility] [id number] [place] [address]- 3684 Nov, [facility] [address] [id number] [place] [address]- 65[address] August, [facility] [place] [facility] [address] [id number] [place] [address] August, [facility] [place] [facility] [address] [id number] [place] [address]- 2036 August, [facility] [place] [facility] [address] [id number] [place] [address]- 8989 Jul, [facility] [place] [facility] [address] [id number] [place] [address]- 9110 May, [facility] [place] [facility] [address] [id number] [place] [address]- 7585 May, [facility] [address] [id number] [place] [address]- 8532 May, [facility] [place] [facility] [address] [id number] [place] [address]- [address] Mar, [facility] [place] [facility] [address] [id number] [place] [address]- 9231 Jan, [facility] [place] [facility] [address] [facility] [id number] [place] [address]- 1083 Jan, [facility] [place] [facility] [address] [id number] [place] [address]- 5195 Oct, [facility] [place] [facility] [address] [id number] [place] [address]- [address] August, [facility] [place] [facility] [address] [id number] [place] [address]- 5098 Jan, [facility] [place] [facility] [address] [id number] [place] [address]- 2366 Jan, [facility] [place] [facility] [address] [id number] [place] [address]- 6[address] Jan, [facility] [place] [facility] [address] [facility] [id number] [place] [address]- 58[address] Jan, IMMUNIZATIONS No Known Immunizations SOCIAL HISTORY Never Assessed REASON FOR VISIT Controlled Med Refill PLAN OF CARE VITAL SIGNS MEDICATIONS Medication [...]
--- OUTSIDE RECORDS SUMMARY | 2018-02-08 21:20 | XMS REPORT ---
Author Author ROSIO IRBY Organization [facility] Address [address] [place] [address] Care Team Providers Care Web Production Manager Name Role Phone ROSIO IRBY Unavailable PROBLEMS Type Condition ICD9-CM Code DOY01-PT Code Onset Dates Condition Status SNOMED Code Problem History of alcohol abuse Z87.898 Active 702704501 Problem Mood disorder F39 Active 72210285 Problem Generalized anxiety disorder F41.1 Active 83131434 Problem Hypertension, benign I10 Active 52622149 Problem Allergic rhinitis, unspecified allergic rhinitis type J30.9 Active 96001287 Problem Chronic hepatitis C without hepatic coma B18.2 Active 219854541 Problem Obsessive compulsive disorder F42 Active 683141898 Problem Hyperammonemia E72.20 Active 2063427 ALLERGIES No Known Allergies ENCOUNTERS Encounter Location Date Diagnosis [place] [address] [address] Oct, Bronchitis J40 [place] [address] 54395- 9351 Oct, Chronic hepatitis C without hepatic coma B18.2 and Cough R05 [place] [address] [place] [id number] [place] [address] 58612- 8906 Sep, Chronic hepatitis C without hepatic coma B18.2 [place] [address] [place] [id number] [place] [address] 11342- 1262 August, Chronic hepatitis C without hepatic coma B18.2 [place] [address] [place] [id number] [place] [address] 44379- 3959 Jul, Chronic hepatitis C without hepatic coma B18.2 [facility] [address] [place] [id number] [place] [address] 75130- 2154 Jul, Generalized anxiety disorder F41.1 ; Mood disorder F39 and History of hepatitis C Z86.19 [facility] [address], [place] [address] 6390 Jul, Chronic hepatitis C without hepatic coma B18.2 [facility] [address] [place] [id number] [place] [address] 30689- 8388 Jun, Chronic hepatitis C without hepatic coma B18.2 [facility] [address] [place] [id number] [place] [address] 84611- 8666 Jun, [facility] [address] [place] [id number] [place] [address] 51208- 1717 May, Chronic hepatitis C without hepatic coma B18.2 [facility] [address] [place] [id number] [place] [address] 32772- 8735 May, Hypertension, benign I10 [facility] [address] [place] [id number] [place] [address] 41684- 3243 Apr, Chronic hepatitis C without hepatic coma B18.2 [facility] [id number] [place] [address] 87769- 5471 Apr, Hypertension, benign I10 [facility] [address] [place] [id number] [place] [address] 63210- 1269 Mar, Chronic hepatitis C without hepatic coma B18.2 [facility] [id number] [place] [address] 08516- 2668 Mar, Hypertension, benign I10 [facility] [address] [place] [id number] [place] [address] 99658- 5256 Mar, Hypertension, benign I10 ; Encounter for immunization Z23 and Strain of right Achilles tendon, initial encounter S86.011A [facility] [address] [place] [id number] [place] [address] 28355- 3775 Feb, Chronic hepatitis C without hepatic coma B18.2 [facility] [address] [place] [id number] [place] [address] 98134- 2324 Jan, Chronic hepatitis C without hepatic coma B18.2 [facility] [address] [place] [address] Jan, Toe pain, right M79.674 and Cellulitis of foot, right L03.115 [facility] [address] [place] [address]- 1946 Dec, Chronic hepatitis C without hepatic coma B18.2 [facility] [address] [place] [id number] [place] [address], [place] [address]- 3066 Nov, Chronic hepatitis C without hepatic coma B18.2 and Eczema of both hands L30.9 [facility] [address] [place] [id number] [place] [address], [place] [address]- 1546 Nov, [facility] [address] [place] [id number] [place] [address] 72853- 2607 Oct, [facility] [address] [place] [id number] [place] [address] 30723- 2079 Sep, [facility] [id number] [place] [address] 82881- 1777 August, [facility] [address] [place] [id number] [place] [address], [place]- 2798 August, [facility] [address], [place] [address]- 8164 Jul, [facility] [address] [place] [id number] [address]- 5631 Jul, [facility] [address], [place] [address]- 0930 Jun, [facility] [address] [place] [id number] [place] [address] 30150- 9996 Jun, [facility] [address] 0096 May, [facility] [address] [place] [id number] [place] [address] 92745- 5061 Apr, Chronic hepatitis C without hepatic coma B18.2 ; Hyperglycemia R73.9 and Hypertension, benign I10 [facility] [address] [place] [id number] [place] [address] 61088- 7443 Apr, Chronic hepatitis C without hepatic coma B18.2 ; Mood disorder F39 ; Hypertension, benign I10 and Hyperglycemia R73.9 [facility] [address] [place] [id number] [place] [address] 57514- 2856 Apr, [facility] [address] [place] [id number] [place] [address] 69556- 6637 Apr, [facility] [address] 71177- 1767 Apr, [facility] [address] [place] [id number] [place] [address] 08927- 7333 Feb, [facility] [address] [place] [id number] [place] [address] 39612- 0011 Feb, [facility] [address] [place] [id number] [place] [address] 51482- 6643 Feb, [facility] [address] [place] [id number] [place] [address] 00789- 3545 Feb, [facility] [address] [place] [id number] [place] [address] 61642- 4567 Jan, [facility] [address] [place] [id number] [place] [address] 28209- 2955 Jan, Chronic hepatitis C without hepatic coma B18.2 ; Mood disorder F39 ; Encounter for immunization Z23 and Chronic viral hepatitis C B18.2 [facility] [address] [place] [id number] [place] [address] 25138- 2042 Jan, [facility] [address] [place] [id number] [place] [address] 91504- 9944 Jan, [facility] [address] [place] [id number] [place] [address] 19620- 5213 Dec, [facility] [address], [place] [address]- 2378 Dec, [facility] [address] [place] [id number] [place] [address] 16658- 6531 Nov, [facility] [address], [place] [address]- 7436 Nov, Weakness of both legs M62.81 [facility] [address] [place] [id number] [place] [address] 57030- 9545 Nov, [facility] [id number] [place] [address] 09614- 8899 Nov, [facility] [id number] [place] [address] 58135- 2046 Nov, [facility] [address] [place] [id number] [place] [address] 97691- 4897 Nov, Eczema, unspecified type L30.9 [facility] [address], [place] [address]- 1003 Nov, [facility] [id number] [place] [address] 86733- 3444 Nov, Eczema, unspecified type L30.9 ; Cessation of tobacco use in previous 12 months Z87.891 and Weakness of both legs M62.81 [facility] [address], [place] [address]- 1503 Oct, [facility] [address], [place] [address]- 9182 Oct, [facility] [address], [place] [address]- 8841 Oct, [facility] [address], [place] [address]- 3889 Oct, Chronic viral hepatitis C B18.2 [facility] [id number] [place] [address] 63251- 9762 Sep, [facility] [address], [place] [address]- 2168 16 Sep, 2015 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 and Generalized anxiety disorder F41.1 [facility] [address] [place] [id number] [address]- 5850 Sep, [facility] [address] [place] [id number] [place] [address] 93010- 5961 August, [facility] [address] [place] [id number] [place] [address] 91666- 9640 August, Hyperammonemia E72.20 [facility] [address] [place] [id number] [place] [address] 65443- 9203 August, Hyperammonemia E72.20 [facility] [address] [place] [id number] [place] [address] 21298- 0463 August, Hyperammonemia E72.20 and Chronic hepatitis C without hepatic coma B18.2 [facility] [address] [place] [id number] [place] [address] 88653- 1394 August, Chronic viral hepatitis C B18.2 [facility] [address] [place] [id number] [place] [address] 66210- 1769 August, [facility] [address] [place] [id number] [address]- 3089 Jul, Chronic viral hepatitis C B18.2 and Hyperammonemia E72.20 [facility] [address], [place] [address]- 8368 Jul, Chronic viral hepatitis C B18.2 [facility] [address] [place] [id number] [address]- 9765 Jul, [facility] [address], [place] [address]- 6463 Jul, [facility] [address] [place] [id number] [place] [address] 83850- 6317 28 Jun, 2015 [facility] [address] [place] [address]- 6272 23 Jun, 2015 Chronic viral hepatitis C B18.2 and Hyperammonemia E72.20 [facility] [address] [place] [address]- 3873 21 Jun, 2015 [facility] [address] [place] [id number] [place] [address], [place] [address]- 2740 18 Jun, 2015 [facility] [address] [place] [id number] [place] [address]- 0809 16 Jun, 2015 Chronic viral hepatitis C B18.2 [facility] [address] [place] [id number] [place] [address], [place] [address]- 8661 10 Jun, 2015 [facility] [address] [place] [id number] [place] [address], [place] [address]- 3332 07 Jun, 2015 Chronic viral hepatitis C B18.2 [facility] [address] [place] [address]- 7016 17 May, 2015 Hepatitis C, chronic B18.2 and Chronic viral hepatitis C B18.2 [facility] [address] [place] [address]- 3590 May, [facility] [address], [place] [address]- 0858 Apr, [facility] [address], [place] [address]- 0910 Apr, Chronic viral hepatitis C B18.2 and Hyperammonemia E72.20 [facility] [address], [place] [address]- 6373 Apr, Chronic viral hepatitis C B18.2 [facility] [address], [place] [address]- 0405 Apr, Hyperammonemia E72.20 [facility] [address], [place] [address]- 6554 Apr, [facility] [address] [place] [id number] [place] [address] 35743- 7533 Apr, [facility] [address] 49862- 9337 Apr, Chronic hepatitis C without hepatic coma B18.2 ; Hyperammonemia E72.20 and Chronic viral hepatitis C B18.2 [place] [address] 87502- 0786 Mar, Shortness of breath R06.02 [place] [address] 14077- 4316 Mar, Mood disorder F39 and Major depressive disorder, recurrent episode, unspecified 296.30 [place] [address] 44368- 5736 Mar, [facility] [address] 50228- 7659 Mar, [facility] [address] 78840- 4180 Mar, [facility] [address] 91963 -1526 Mar, Seasonal allergies J30.2 ; Shortness of breath R06.02 and Cough R05 [place] [address] [place] [id number] [place] [address] 75072- 5721 Mar, Hyperammonemia E72.20 ; Mood disorder F39 and History of alcohol abuse Z87.898 [facility] [address] [place] [id number] [place] [address] 25603- 1081 Mar, Hyperammonemia E72.20 [place] [address] [place] [id number] [place] [address] 14964- 0592 Mar, [facility] [address] [place] [id number] [place] [address] 89659- 6232 Feb, [place] [address], [place] [address]- 5886 Feb, [facility] [address] [place] [id number] [place] [address] 38913- 0309 Feb, Hyperammonemia E72.20 [facility] [address] [place] [id number] [place] [address] 89742- 5957 Feb, [facility] [address] [place] [id number] [place] [address] 70300- 0352 Feb, [facility] [address] [place] [address] 68650- 9960 Feb, [facility] [address] [place] [id number] [place] [address] 42434- 3985 Feb, [facility] [address] [place] [id number] [place] [address] 84704- 4248 Feb, Chronic viral hepatitis C B18.2 [facility] [address] [place] [id number] [place] [address] 55069- 3506 Feb, Chronic viral hepatitis C B18.2 [facility] [address] [place] [id number] [place] [address] 77800- 8667 Feb, [facility] [address] [place] [address] 68533 2543 Feb, Chronic viral hepatitis C B18.2 and Confusion R41.0 [facility] [address] [place] [address] 75580- 6487 Feb, [facility] [address] [place] [address] 65815- 9056 Jan, [facility] [address] [place] [id number] [place] [address] 55270- 4466 Jan, Confusion R41.0 [facility] [address] [place] [id number] [place] [address] 78111- 4416 Jan, [facility] [address] [place] [id number] [address]- 7346 Jan, [facility] [address], [place] [address]- 7583 Jan, [facility] [address], [place] [address]- 1157 Jan, [facility] [address] [place] [address] 57419- 3333 Jan, Chronic viral hepatitis C B18.2 and 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 [facility] [address] [place] [address] 75039- 4537 Jan, [facility] [address] [place] [id number] [place] [address] 69208- 9049 Jan, [facility] [address] [place] [id number] [place] [address] 27585- 7708 Jan, [facility] [address] [place] [id number] [place] [address] 79959- 4113 Jan, [facility] [address] [place] [address] 20617- 7808 Jan, Chronic viral hepatitis C B18.2 [facility] [address], [place] [address]- 9534 Jan, [facility] [address], [place] [address]- 0095 Jan, Back pain at L4-L5 level M54.5 and Confusion R41.0 [facility] [address], [place] [address]- 8228 Jan, [facility] [address] [place] [id number] [place] [address] 03759- 4506 30 Dec, 2014 Chronic viral hepatitis C B18.2 and Flu vaccine need V04.81 [facility] [address], [place] [address]- 0969 Dec, Chronic viral hepatitis C B18.2 [facility] [address], [place] [address]- 3234 Dec, [facility] [address] [place] [id number] [place] [address] 22702- 1899 Dec, Polyuria 788.42 [facility] [address] [place] [id number] [place] [address] 69159- 0373 Dec, Polyuria 788.42 ; Polydipsia 783.5 ; Dizziness 780.4 and Hepatitis C, chronic 070.54 [facility] [address] [place] [id number] [place] [address] 43696- 2688 10 Dec, 2014 Major depressive disorder, recurrent episode, unspecified 296.30 and Generalized anxiety disorder 300.02 [facility] [address] [place] [id number] [place] [address] 20020- 1302 Nov, [facility] [address] [place] [id number] [place] [address] 27454- 4147 Nov, [facility] [address] [id number] [place] [address] 31004- 4181 Nov, [facility] [address] [place] [id number] [place] [address] 78610- 3455 Oct, [facility] [address] [place] [id number] [place] [address] 76045- 5320 Sep, [facility] [address] [place] [id number] [place] [address] 31968- 3680 August, Obsessive-compulsive disorders 300.3 ; Generalized anxiety disorder 300.02 and Major depressive disorder, recurrent episode, unspecified 296.30 [facility] [address] [place] [id number] [place] [address] 36382- 2120 August, Chronic hepatitis C without mention of hepatic coma 070.54 ; Hypertension 401.9 and Seasonal allergies 477.9 [facility] [address] [place] [address] 07867- 1340 Jul, [facility] [address] [place] [address]- 6828 Jul, [facility] [address] [id number] [place] [address]- 9884 Jun, [facility] [place] [facility] [address] [id number] [place] [address]- 9192 Jun, [facility] [place] [facility] [address] [id number] [place] [address]- 6125 May, [facility] [place] [facility] [address] [id number] [place] [address]- 7733 May, [facility] [place] [facility] [address] [id number] [place] [address]- 4215 May, [facility] [place] [facility] [address] [id number] [place] [address]- 4286 May, [facility] [place] [facility] [address] [id number] [place] [address]- 1681 Apr, [facility] [address] [id number] [place] [address]- 8067 Apr, [facility] [place] [facility] [address] [id number] [place] [address]- 2490 Apr, [facility] [address] [facility] [id number] [place] [address]- 7834 Apr, [facility] [place] [facility] [address] [id number] [place] [address]- 1632 Apr, [facility] [place] [facility] [address] [id number] [place] [address]- 2979 Apr, [facility] [place] [facility] [address] [id number] [place] [address]- 3597 Mar, [facility] [place] [facility] [address] [id number] [place] [address]- 3496 Mar, [facility] [place] [facility] [address] [id number] [place] 3186 Mar, [facility] [place] [facility] [address] [id number] [place] [address]- 8621 Mar, [facility] [place] [facility] [address] [id number] [place] [address]- 7395 Mar, [facility] [place] [facility] [address] [id number] [place] [address]- 3438 Mar, [facility] [place] [facility] [address] [id number] [place] [address]- 9768 Mar, [facility] [place] [facility] [address] [id number] [place] 3192 Mar, [facility] [place] [facility] [address] [id number] [place] [address]- 1466 Mar, [facility] [place] [facility] [address] [id number] [place] [address]- 6167 Feb, [facility] [place] [facility] [address] [id number] [place] [address]- 7086 Feb, [facility] [place] [facility] [address] [id number] [place] [address] Feb, [facility] [place] [facility] [address] [id number] [place] [address] Feb, [facility] [place] [facility] [address] [id number] [place] [address] Feb, [facility] [place] [facility] [address] [id number], [place] [address] Jan, [facility] [place] [facility] [address] [id number] [place] [address] Jan, [facility] [place] [facility] [address] [id number] [place] [address] Jan, [facility] [place] [facility] [address] [id number] [place] [address] Jan, [facility] [place] [facility] [address] [id number], [place] [address] Jan, [facility] [place] [facility] [address] [id number] [place] [address] Jan, [facility] [place] [facility] [address] [id number] [place] [address] Jan, [facility] [place] [facility] [address] [id number] [place] [address] Jan, [facility] [place] [facility] [address] [id number] [place] [address] Jan, [facility] [place] [facility] [address] [id number] [place] [address] Nov, [facility] [place] [facility] [address] [id number] [place] [address] Nov, [facility] [place] [facility] [address] [id number] [place] [address] Nov, [facility] [place] [facility] [address] [id number] [place] [address] Oct, [facility] [place] [facility] [address] [id number] [place] [address] Oct, [facility] [place] [facility] [address] [facility] [id number] [place] [address] Oct, [facility] [place] [facility] [address] [id number] [place] [address] Oct, [facility] [place] [facility] [address] [id number] [place] [address] Sep, [facility] [place] [facility] [address] [id number] [place] [address] Sep, [facility] [place] [facility] [address] [facility] [id number] [place] [address] Sep, [facility] [place] [facility] [address] [facility] [id number] [place] [address] Sep, [facility] [place] [facility] [address] [id number] [place] [address] Sep, [facility] [place] [facility] [address] [id number] [place] [address] Sep, [facility] [place] [facility] [address] [id number] [place] [address] August, [facility] [place] [facility] [address] [id number] [place] [address] August, [facility] [place] [facility] [address] [id number] [place] [address] Jul, [facility] [place] [facility] [address] [id number] [place] [address] Jul, [facility] [place] [facility] [address] [id number] [place] [address] Jul, [facility] [place] [facility] [address] [id number] [place] [address] Jul, [facility] [place] [facility] [address] [id number] [place] [address] Jul, [facility] [place] [facility] [address] [id number] [place] [address] Jul, [facility] [place] [facility] [address] [id number] [place] [address] Jul, [facility] [place] [facility] [address] [id number] [place] [address] Jul, [facility] [place] [facility] [address] [id number] [place] [address] Jul, [facility] [place] [facility] [address] [id number] [place] [address] Jul, [facility] [place] [facility] [address] [id number] [place] [address] Jun, [facility] [place] [facility] [address] [id number] [place] [address] Jun, [facility] [place] [facility] [address] [id number] [place] [address] Jun, [facility] [place] [facility] [address] [id number] [place] [address] Jun, [facility] [place] [facility] [address] [id number] [place] [address] May, [facility] [place] [facility] [address] [id number] [place] [address] May, [facility] [place] [facility] [address] [id number] [place] [address] May, [facility] [place] [facility] [address] [id number] [place] [address] May, [facility] [place] [facility] [address] [id number] [place] [address] May, [facility] [place] [facility] [address] [id number] [place] [address] May, [facility] [place] [facility] [address] [id number] [place] [address] Mar, [facility] [place] [facility] [address] [id number] [place] [address] 16 Mar, 2013 [facility] [place] [facility] [address] [id number] [place] [address] 16 Mar, 2013 [facility] [place] [facility] [address] [id number] [place] [address] 16 Mar, 2013 [facility] [place] [facility] [address] [id number] [place] [address] Mar, [facility] [place] [facility] [address] [id number] [place] [address]48 16 Mar, 2013 [facility] [place] [facility] [address] [facility] [id number] [place] [address] Feb, [facility] [place] [facility] [address] [id number] [place] [address] Feb, [facility] [place] [facility] [address] [id number] [place] [address] Feb, [facility] [place] [facility] [address] [id number] [place] [address]- 9488 Feb, [facility] [place] [facility] [address] [id number] [place] [address] Feb, [facility] [place] [facility] [address] [id number] [place] [address] Feb, [facility] [place] [facility] [address] [id number] [place] [address] 77[address] Feb, [facility] [place] [facility] [address] [id number] [place] [address]20 07 Feb, 2013 [facility] [place] [facility] [address] [id number] [place] [address]- 1465 18 Jan, 2013 [facility] [place] [facility] [address] [id number] [place] [address]33 18 Jan, 2013 [facility] [place] [facility] [address] [id number] [place] [address] 17 Jan, 2013 [facility] [place] [facility] [address] [id number] [place] [address]- [address] 16 Jan, 2013 [facility] [place] [facility] [address] [id number] [place] [address]- [address]11 16 Jan, 2013 [facility] [place] [facility] [address] [id number] [place] [address] 14 Jan, 2013 [facility] [place] [facility] [address] [id number] [place] [address] 14 Jan, 2013 [facility] [place] [facility] [address] [id number] [place] [address]- [address]65 11 Jan, 2013 [facility] [place] [facility] [address] [id number] [place] [address]- [address] Jan, [facility] [place] [facility] [address] [id number] [place] [address] Jan, [facility] [place] [facility] [address] [id number] [place] [address] Dec, [facility] [place] [facility] [address] [id number] [place] [address]957 Dec, [facility] [place] [facility] [address] [id number] [place] [address] Dec, [facility] [place] [facility] [address] [id number] [place] [address]201 Nov, [facility] [place] [facility] [address] [id number] [place] [address] 2003 Nov, [facility] [place] [facility] [address] [id number] [place] [address]- [address]127 Nov, [facility] [place] [facility] [address] [id number] [place] [address] 7936 Nov, [facility] [place] [facility] [address] [id number] [place] [address]- 3916 Nov, [facility] [place] [facility] [address] [id number] [place] [address]223 Nov, [facility] [place] [facility] [address] [id number] [place] [address] 4174 Nov, [facility] [place] [facility] [address] [id number] [place] [address] 0465 Nov, [facility] [place] [facility] [address] [id number] [place] [address]- 8438 Nov, [facility] [place] [facility] [address] [id number] [place] [address] 8778 Nov, [facility] [place] [facility] [address] [id number] [place] [address] 1699 Oct, [facility] [place] [facility] [address] [id number] [place] [address]647 Oct, [facility] [address] [id number] [place] [address] 9727 Oct, [facility] [place] [facility] [address] [id number] [place] [address]- 5648 Oct, [facility] [place] [facility] [address] [id number] [place] [address]- 1644 Oct, [facility] [place] [facility] [address] [id number] [place] [address]- 4938 Oct, [facility] [place] [facility] [address] [id number] [place] [address]- 6685 Oct, [facility] [place] [facility] [address] [id number] [place] [address]- 8282 Oct, [facility] [address] [id number] [place] [address] 3923 Sep, [facility] [place] [facility] [address] [id number] [place] [address]277 Sep, [facility] [address] [id number] [place] [address] 0923 Sep, [facility] [place] [facility] [address] [id number] [place] [address] 6517 Sep, [facility] [address] [id number] [place] [address] August, [facility] [place] [facility] [address] [id number] [place] [address]46 August, [facility] [place] [facility] [address] [id number] [place] [address] August, [facility] [address] [place] [id number] Jul, [facility] [address] [id number] Jul, [facility] [address] [id number] [place] [address] Jun, [facility] [place] [facility] [address] [id number] [place] [address]- 9732 May, [facility] [place] [facility] [address] [facility] [id number] [place] [address]- 2046 May, [facility] [place] [facility] [address] [facility] [id number] [place] [address]- 1595 Apr, [facility] [place] [facility] [address] [id number] [place] [address]- 8545 Feb, [facility] [place] [facility] [address] [id number] [place] [address]- 4208 Feb, [facility] [place] [facility] [address] [facility] [id number] [place] [address]- 2234 Jan, [facility] [place] [facility] [address] [id number] [place] [address]- 0759 Jan, [facility] [place] [facility] [address] [id number] [place] [address]- 1827 Jan, [facility] [place] [facility] [address] [facility] [id number] [place] [address]- 7302 Jan, [facility] [place] [facility] [address] [facility] [id number], [place] [address]- 9476 Jan, [facility] [place] [facility] [address] [facility] [id number], [place] [address]- 7966 Dec, [facility] [place] [facility] [address] [facility] [id number], [place] [address]60 Dec, [facility] [address] [facility] [id number] [id number] Nov, [facility] [place] [facility] [address] [facility] [id number], [place] [address] Nov, [facility] [place] [facility] [address] [facility] [id number], [place] [address]- 2280 Nov, [facility] [place] [facility] [address] [facility] [id number] [place] [address]- 2025 Nov, [facility] [place] [facility] [address] [id number] [place] [address]- 9310 August, [facility] [place] [facility] [address] [id number] [place] [address] August, [facility] [place] [facility] [address] [id number] [place] [address]- 6674 August, [facility] [place] [facility] [address] [id number] [place] [address]- 0179 Jul, [facility] [place] [facility] [address] [id number] [place] [address] May, [facility] [place] [facility] [address] [id number] [place] [address]- 3889 May, [facility] [place] [facility] [address] [id number] [place] [address]- 5649 May, [facility] [place] [facility] [address] [id number], [place] [address] Mar, [facility] [place] [facility] [address] [id number] [place] [address]- 5262 Jan, [facility] [place] [facility] [address] [facility] [id number], [place] [address]- 64[address] Jan, [facility] [place] [facility] [address] [id number] [place] [address]- 5569 Oct, [facility] [place] [facility] [address] [id number], [place] [address] August, [facility] [place] [facility] [address] [id number] [place] [address]- 5564 Jan, [facility] [place] [facility] [address] [id number], [place] [address]- 2677 Jan, [facility] [place] [facility] [address] [id number], [place] [address]- [address]34 Jan, [facility] [address] [facility] [id number] [place] [address] Jan, IMMUNIZATIONS No Known Immunizations SOCIAL HISTORY Never Assessed REASON FOR VISIT Anxiety, reports things have beengoing "real good" CBrumbackRN PLAN OF CARE VITAL SIGNS Height 72 in 2017-07-17 Weight 245.4 lbs 2017-07-17 Temperature 98.1 degrees Fahrenheit 2017-07-17 Heart Rate 72 bpm 2017-07-17 Respiratory Rate 18 2017-07-17 BMI 33.28 kg/m2 2017-07-17 Blood pressure systolic 122 mmHg 2017-07-17 Blood pressure diastolic 82 mmHg 2017-07-17 MEDICATIONS Medication Instructions Dosage Frequency Start Date End Date Duration Status Cetirizine HCl 10 mg Orally Once a day 1 tablet 24h Jul, Jan, 30 day(s) Active Potassium Chloride ER 10 MEQ TAKE 1 CAPSULE EVERY DAY 90 Active Albuterol Sulfate HFA 108 (90 Base) MCG/ACT Inhalation every 4 hrs 2 puffs as needed 4h Mar, Active Centrum Adults Active Dandelion Root 520 MG Not-Taking Lexapro 20 mg Orally Once a day 1 tablet 24h Active Xanax 2 MG Orally 4 times a day 1 tablet 6h 25 Jun, 2014 28 days Active Triamcinolone Acetonide 0.1 % Externally Twice a day 1 application to affected area 12h Nov, Active Ketoconazole 2 % Externally no more than twice a day 1 application to affected area Nov, Active Mirtazapine 15 MG TAKE 1 TABLET AT BEDTIME 90 Active Lisinopril-Hydrochlorothiazide 20-25 MG Orally Once a day 1 tablet 24h Mar, Active Aspirin 81 MG Orally Once a day 1 tablet 24h 12 May, 2012 Active Pepcid 20 mg Orally Once a day 1 tablet at bedtime 24h Jul, 30 day(s) Active Gabapentin 600 MG Orally 3 times a day 1 tablet 8h Active Propranolol HCl 40 mg TAKE 1 TABLET THREE TIMES DAILY 12h Active RESULTS No Results PROCEDURES Procedure Date Ordered Result Body Site DRUG TEST PRSMV CHEM ANLYZR July 17, 2017 DRUG SCREEN AMPHETAMINES /July 17, 2017 [facility] VISIT ESTABLISHED PATIENT July 17, 2017 INSTRUCTIONS MEDICATIONS ADMINISTERED No Known Medications [...]
--- OUTSIDE RECORDS SUMMARY | 2018-02-08 21:21 | XMS REPORT ---
Author Author ROSIO IRBY Organization [facility] Address [address] [place] [address] Care Team Providers Care Garment Looper Name Role Phone ROSIO IRBY Unavailable PROBLEMS Type Condition ICD9-CM Code ZLC99-BQ Code Onset Dates Condition Status SNOMED Code Problem History of alcohol abuse Z87.898 Active 776617568 Problem Mood disorder F39 Active 49948858 Problem Generalized anxiety disorder F41.1 Active 78055634 Problem Hypertension, benign I10 Active 38695335 Problem Allergic rhinitis, unspecified allergic rhinitis type J30.9 Active 62611176 Problem Chronic hepatitis C without hepatic coma B18.2 Active 525821099 Problem Obsessive compulsive disorder F42 Active 955125728 Problem Hyperammonemia E72.20 Active 8542476 ALLERGIES No Information ENCOUNTERS Encounter Location Date Diagnosis [place] [address] [address] Oct, Bronchitis J40 [place] [address] 41710- 9761 Oct, Chronic hepatitis C without hepatic coma B18.2 and Cough R05 [place] [address] [place] [id number] [place] [address] 04230- 5751 Sep, Chronic hepatitis C without hepatic coma B18.2 [place] [address] [place] [id number] [place] [address] 11742- 9209 August, Chronic hepatitis C without hepatic coma B18.2 [place] [address] 58876- 8356 Jul, Chronic hepatitis C without hepatic coma B18.2 [facility] [address] [place] [id number] [place] [address] 86769- 6661 Jul, Generalized anxiety disorder F41.1 ; Mood disorder F39 and History of hepatitis C Z86.19 [facility] [address], [place] [address]- 2540 Jul, Chronic hepatitis C without hepatic coma B18.2 [facility] [id number] [place] [address] 25403- 4916 Jun, Chronic hepatitis C without hepatic coma B18.2 [facility] [address] [place] [id number] [place] [address] 73955- 7856 Jun, [facility] [address] [place] [id number] [place] [address] 46468- 8511 May, Chronic hepatitis C without hepatic coma B18.2 [facility] [address] [place] [id number] [place] [address] 17792- 1518 May, Hypertension, benign I10 [facility] [address] [place] [id number] [place] [address] 71161- 4685 Apr, Chronic hepatitis C without hepatic coma B18.2 [facility] [id number] [place] [address] 52154- 0010 Apr, Hypertension, benign I10 [facility] [address] [place] [id number] [place] [address] 39096- 4831 Mar, Chronic hepatitis C without hepatic coma B18.2 [facility] [address] [place] [id number] [place] [address] 83523- 6940 Mar, Hypertension, benign I10 [facility] [address] [place] [id number] [place] [address] 14490- 1197 Mar, Hypertension, benign I10 ; Encounter for immunization Z23 and Strain of right Achilles tendon, initial encounter S86.011A [facility] [address] [place] [id number] [place] [address] 89411- 9039 Feb, Chronic hepatitis C without hepatic coma B18.2 [facility] [address] [place] [id number] [place] [address] 23427- 8186 Jan, Chronic hepatitis C without hepatic coma B18.2 [facility] [id number] [place] [address] Jan, Toe pain, right M79.674 and Cellulitis of foot, right L03.115 [facility] [address] [place] [address] 2546 Dec, Chronic hepatitis C without hepatic coma B18.2 [facility] [address] [place] [id number] [place] [address], [place] [address]- 6526 Nov, Chronic hepatitis C without hepatic coma B18.2 and Eczema of both hands L30.9 [facility] [address] [place] [id number] [place] [address], [place] [address]- 3056 Nov, [facility] [address] [place] [id number] [place] [address]- 0698 Oct, [facility] [address] [place] [id number] [place] [address], [place] [address]- 1572 Sep, [facility] [address] [place] [address]- 0171 August, [facility] [address] [place] [id number] [place] [address]- 7206 August, [facility] [address] [place] [address]- 0086 Jul, [facility] [address] [place] [address]- 6178 Jul, [facility] [address], [place] [address] 2540 Jun, [facility] [address] [place] [id number] [place] [address] 2546 Jun, [facility] [id number] [place] [address] 2546 May, [facility] [address] [place] [id number] [place] [address] 03945- 6248 Apr, Chronic hepatitis C without hepatic coma B18.2 ; Hyperglycemia R73.9 and Hypertension, benign I10 [facility] [address] [place] [id number] [place] [address] 17030- 0329 Apr, Chronic hepatitis C without hepatic coma B18.2 ; Mood disorder F39 ; Hypertension, benign I10 and Hyperglycemia R73.9 [facility] [address] [place] [id number] [place] [address] 67635- 2908 Apr, [facility] [address] [place] [id number] [place] [address] 69068- 4149 Apr, [facility] [address] 67580- 5457 Apr, [facility] [address] [place] [id number] [place] [address] 14745- 1550 Feb, [facility] [address] [place] [id number] [place] [address] 70715- 4622 Feb, [facility] [address] [place] [id number] [place] [address] 33605- 7420 Feb, [facility] [address] [place] [id number] [place] [address] 44451- 0751 Feb, [facility] [address] [place] [id number] [place] [address] 58483- 5248 Jan, [facility] [address] [place] [id number] [place] [address] 47826- 0939 Jan, Chronic hepatitis C without hepatic coma B18.2 ; Mood disorder F39 ; Encounter for immunization Z23 and Chronic viral hepatitis C B18.2 [facility] [address] [place] [id number] [place] [address] 25417- 7167 Jan, [facility] [address] [place] [id number] [place] [address] 70317- 6866 Jan, [facility] [address] [place] [id number] [place] [address] 25452- 9400 Dec, [facility] [address], [place] [address]- 3569 Dec, [facility] [address] [place] [id number] [place] [address] 94411- 8648 Nov, [facility] [address] [place] [id number] [address]- 1681 Nov, Weakness of both legs M62.81 [facility] [address] [place] [id number] [place] [address] 54726- 4025 Nov, [facility] [id number] [place] [address] 08091- 4945 Nov, [facility] [address] [place] [id number] [place] [address] 30623- 8264 Nov, [facility] [address] [place] [id number] [place] [address] 45978- 5821 Nov, Eczema, unspecified type L30.9 [facility] [id number] [place] [address] 50318- 7110 Nov, [facility] [id number] [place] [address] 83498- 0737 Nov, Eczema, unspecified type L30.9 ; Cessation of tobacco use in previous 12 months Z87.891 and Weakness of both legs M62.81 [facility] [address], [place] [address]- 1063 Oct, [facility] [address], [place] [address]- 2547 Oct, [facility] [id number] [place] [address] 37898- 7994 Oct, [facility] [address], [place] [address]- 9619 Oct, Chronic viral hepatitis C B18.2 [facility] [address], [place] [address]- 3446 Sep, [facility] [address], [place] [address]- 6174 16 Sep, 2015 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 and Generalized anxiety disorder F41.1 [facility] [address], [place] [address]- 6971 Sep, [facility] [address] [place] [id number] [place] [address] 23744- 8326 August, [facility] [address] [place] [id number] [place] [address] 02112- 1001 August, Hyperammonemia E72.20 [facility] [address] [place] [id number] [place] [address] 96441- 6388 August, Hyperammonemia E72.20 [facility] [address] [place] [id number] [place] [address] 59838- 9496 August, Hyperammonemia E72.20 and Chronic hepatitis C without hepatic coma B18.2 [facility] [address] [place] [id number] [place] [address] 05564- 7300 August, Chronic viral hepatitis C B18.2 [facility] [address] [place] [id number] [place] [address] 06302- 0315 August, [facility] [address] [place] [id number] [address]- 4745 Jul, Chronic viral hepatitis C B18.2 and Hyperammonemia E72.20 [facility] [address], [place] [address]- 0972 Jul, Chronic viral hepatitis C B18.2 [facility] [address] [place] [id number] [address]- 5597 Jul, [facility] [address], [place] [address]- 6530 Jul, [facility] [id number] [place] [address] 58495- 2930 Jun, [facility] [address] [place] [address]- 6380 23 Jun, 2015 Chronic viral hepatitis C B18.2 and Hyperammonemia E72.20 [facility] [address] [place] [address]- 7031 21 Jun, 2015 [facility] [address] [place] [id number] [place] [address], [place] [address]- 6823 18 Jun, 2015 [facility] [address] [place] [id number] [place] [address], [place] [address]- 9099 16 Jun, 2015 Chronic viral hepatitis C B18.2 [facility] [address] [place] [id number] [place] [address], [place] [address]- 0446 10 Jun, 2015 [facility] [address] [place] [id number] [place] [address]- 3079 07 Jun, 2015 Chronic viral hepatitis C B18.2 [facility] [address] [place] [address]- 5326 17 May, 2015 Hepatitis C, chronic B18.2 and Chronic viral hepatitis C B18.2 [facility] [address] [place] [address]- 7492 May, [facility] [address], [place] [address]- 9197 Apr, [facility] [address], [place] [address]- 4618 Apr, Chronic viral hepatitis C B18.2 and Hyperammonemia E72.20 [facility] [address], [place] [address]- 8353 Apr, Chronic viral hepatitis C B18.2 [facility] [address], [place] [address]- 8844 Apr, Hyperammonemia E72.20 [facility] [address], [place] [address]- 6346 Apr, [facility] [address] [place] [id number] [place] [address] 21944- 2428 Apr, [facility] [address] 47635- 8122 Apr, Chronic hepatitis C without hepatic coma B18.2 ; Hyperammonemia E72.20 and Chronic viral hepatitis C B18.2 [place] [address] 43872- 3410 Mar, Shortness of breath R06.02 [facility] [address] [place] [id number] [place] [address] 38509- 8736 Mar, Mood disorder F39 and Major depressive disorder, recurrent episode, unspecified 296.30 [place] [address] 63657- 6325 Mar, [facility] [address] 77852- 8861 Mar, [facility] [address] [place] [id number] [place] [address] 24707- 7709 Mar, [facility] [address] [place] [id number] [place] [address] 95221 -8832 Mar, Seasonal allergies J30.2 ; Shortness of breath R06.02 and Cough R05 [place] [address] [place] [id number] [place] [address] 47517- 8802 Mar, Hyperammonemia E72.20 ; Mood disorder F39 and History of alcohol abuse Z87.898 [facility] [address] [place] [id number] [place] [address] 99713- 4521 Mar, Hyperammonemia E72.20 [place] [address] [place] [id number] [place] [address] 75140- 4731 Mar, [facility] [address] [place] [id number] [place] [address] 21917- 6337 Feb, [facility] [address], [place] [address]- 0670 Feb, [facility] [address] [place] [id number] [place] [address] 95015- 6061 Feb, Hyperammonemia E72.20 [facility] [address] [place] [id number] [place] [address] 85976- 3663 Feb, [facility] [address] [place] [id number] [place] [address] 68988- 8754 Feb, [facility] [address] [place] [id number] [place] [address] 96155- 1997 Feb, [facility] [address] [place] [id number] [place] [address] 41890- 8650 Feb, [facility] [address] [place] [id number] [place] [address] 93421- 6990 Feb, Chronic viral hepatitis C B18.2 [facility] [address] [place] [id number] [place] [address] 41909- 7351 Feb, Chronic viral hepatitis C B18.2 [facility] [address] [place] [id number] [place] [address] 14957- 4874 Feb, [facility] [id number] [place] [address] 20910- 6359 Feb, Chronic viral hepatitis C B18.2 and Confusion R41.0 [facility] [id number] [place] [address] 84805- 6954 Feb, [facility] [id number] [place] [address] 68925- 4720 Jan, [facility] [address] [place] [id number] [place] [address] 26515- 8393 Jan, Confusion R41.0 [facility] [address] [place] [id number] [place] [address] 57618- 9137 Jan, [facility] [address] [place] [id number] [address]- 7603 Jan, [facility] [address], [place] [address]- 2949 Jan, [facility] [address] [place] [id number] [place] [address] 60004- 3921 Jan, [facility] [id number] [place] [address] 49996- 0742 Jan, Chronic viral hepatitis C B18.2 and 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 [facility] [address] [place] [id number] [place] [address] 96913- 0959 Jan, [facility] [address] [place] [id number] [place] [address] 75414- 3463 Jan, [facility] [address] [place] [id number] [place] [address] 09600- 4770 Jan, [facility] [address] [place] [id number] [place] [address] 72972- 8014 Jan, [facility] [id number] [place] [address] 12051- 2350 Jan, Chronic viral hepatitis C B18.2 [facility] [address], [place] [address]- 3256 Jan, [facility] [id number] [place] [address] 38354- 9511 Jan, Back pain at L4-L5 level M54.5 and Confusion R41.0 [facility] [address], [place] [address]- 5060 Jan, [facility] [address] [place] [id number] [place] [address] 12130- 7359 30 Dec, 2014 Chronic viral hepatitis C B18.2 and Flu vaccine need V04.81 [facility] [address], [place] [address]- 3568 30 Dec, 2014 Chronic viral hepatitis C B18.2 [facility] [id number] [place] [address] 35847- 5080 Dec, [facility] [address] [place] [id number] [place] [address] 25564- 8370 Dec, Polyuria 788.42 [facility] [address] [place] [id number] [place] [address] 34468- 2366 Dec, Polyuria 788.42 ; Polydipsia 783.5 ; Dizziness 780.4 and Hepatitis C, chronic 070.54 [facility] [address] [place] [id number] [place] [address] 37472- 0801 Dec, Major depressive disorder, recurrent episode, unspecified 296.30 and Generalized anxiety disorder 300.02 [facility] [address] [place] [id number] [place] [address] 78154- 9744 Nov, [facility] [address] 41542- 8016 Nov, [facility] [address] [place] [id number] [place] [address] 84391- 7633 Nov, [facility] [address] [place] [id number] [place] [address] 16110- 8403 Oct, [facility] [address] [place] [id number] [place] [address] 38764- 7529 Sep, [facility] [address] [place] [id number] [place] [address] 60121- 7378 August, Obsessive-compulsive disorders 300.3 ; Generalized anxiety disorder 300.02 and Major depressive disorder, recurrent episode, unspecified 296.30 [facility] [address] [place] [id number] [place] [address] 25060- 3308 August, Chronic hepatitis C without mention of hepatic coma 070.54 ; Hypertension 401.9 and Seasonal allergies 477.9 [facility] [address] [place] [id number] [place] [address] 44126- 1040 Jul, [facility] [address] [place] [address]- 2162 Jul, [facility] [address] [id number] [place] [address]- 2189 Jun, [facility] [place] [facility] [address] [id number] [place] [address]- 3877 Jun, [facility] [place] [facility] [address] [id number] [place] [address]- 3646 May, [facility] [place] [facility] [address] [id number] [place] [address]- 1227 May, [facility] [place] [facility] [address] [id number] [place] [address]- 0975 May, [facility] [place] [facility] [address] [id number] [place] [address]- 5374 May, [facility] [place] [facility] [address] [id number] [place] [address]- 0965 Apr, [facility] [place] [facility] [address] [id number] [place] [address]- 9388 Apr, [facility] [place] [facility] [address] [id number] [place] [address]- 2675 Apr, [facility] [place] [facility] [address] [id number] [place] [address]- 2091 Apr, [facility] [place] [facility] [address] [id number] [place] [address]- 9398 Apr, [facility] [place] [facility] [address] [id number] [place] [address]- 3281 Apr, [facility] [place] [facility] [address] [id number] [place] [address]- 8023 Mar, [facility] [place] [facility] [address] [id number] [place] [address]- 1956 Mar, [facility] [place] [facility] [address] [id number] [place] [address]- 7977 Mar, [facility] [place] [facility] [address] [id number] [place] [address]- 5447 Mar, [facility] [place] [facility] [address] [id number] [place] [address]- 8722 Mar, [facility] [place] [facility] [address] [id number] [place] [address]- 2091 Mar, [facility] [place] [facility] [address] [id number] [place] [address]- 2334 Mar, [facility] [place] [facility] [address] [id number] [place] 9245 Mar, [facility] [place] [facility] [address] [id number] [place] [address]- 9614 Mar, [facility] [place] [facility] [address] [id number] [place] [address]- 1462 Feb, [facility] [place] [facility] [address] [id number] [place] [address]- 1671 Feb, [facility] [place] [facility] [address] [id number] [place] [address]- 2786 Feb, [facility] [place] [facility] [address] [id number] [place] [address]- 3113 Feb, [facility] [place] [facility] [address] [id number] [place] [address]- 5326 Feb, [facility] [place] [facility] [address] [id number], [place] [address]- 3997 Jan, [facility] [place] [facility] [address] [id number] [place] [address]- 7578 Jan, [facility] [place] [facility] [address] [id number] [place] [address]- 8114 Jan, [facility] [place] [facility] [address] [id number], [place] [address]- 7418 Jan, [facility] [place] [facility] [address] [id number], [place] [address]- 4482 Jan, [facility] [place] [facility] [address] [id number] [place] [address]- 4986 Jan, [facility] [place] [facility] [address] [id number] [place] [address]- 6245 Jan, [facility] [place] [facility] [address] [id number] [place] [address]- 0100 Jan, [facility] [place] [facility] [address] [id number] [place] [address]- 8841 Jan, [facility] [place] [facility] [address] [id number] [place] [address] Nov, [facility] [place] [facility] [address] [id number] [place] [address] Nov, [facility] [place] [facility] [address] [id number] [place] [address] Nov, [facility] [place] [facility] [address] [id number] [place] [address] Oct, [facility] [place] [facility] [address] [id number] [place] [address] Oct, [facility] [place] [facility] [address] [facility] [id number] [place] [address] Oct, [facility] [place] [facility] [address] [id number] [place] [address] Oct, [facility] [place] [facility] [address] [id number] [place] [address] Sep, [facility] [place] [facility] [address] [id number] [place] [address] Sep, [facility] [place] [facility] [address] [id number] [place] [address] Sep, [facility] [place] [facility] [address] [facility] [id number] [place] [address]- [address] Sep, [facility] [place] [facility] [address] [id number] [place] [address] Sep, [facility] [place] [facility] [address] [id number] [place] [address] Sep, [facility] [place] [facility] [address] [id number] [place] [address] August, [facility] [place] [facility] [address] [id number] [place] [address] August, [facility] [place] [facility] [address] [id number] [place] [address] Jul, [facility] [place] [facility] [address] [id number] [place] [address] Jul, [facility] [place] [facility] [address] [id number] [place] [address] Jul, [facility] [place] [facility] [address] [id number] [place] [address] Jul, [facility] [place] [facility] [address] [id number] [place] [address] Jul, [facility] [place] [facility] [address] [id number] [place] [address] Jul, [facility] [place] [facility] [address] [id number] [place] [address] Jul, [facility] [place] [facility] [address] [id number] [place] [address]- [address] Jul, [facility] [place] [facility] [address] [id number] [place] [address] Jul, [facility] [place] [facility] [address] [id number] [place] [address] Jul, [facility] [place] [facility] [address] [id number] [place] [address] Jun, [facility] [place] [facility] [address] [id number] [place] [address] Jun, [facility] [place] [facility] [address] [id number] [place] [address] Jun, [facility] [place] [facility] [address] [id number] [place] [address] Jun, [facility] [place] [facility] [address] [id number] [place] [address] May, [facility] [place] [facility] [address] [id number] [place] [address] May, [facility] [place] [facility] [address] [id number] [place] [address] May, [facility] [place] [facility] [address] [id number] [place] [address] May, [facility] [place] [facility] [address] [id number] [place] [address] May, [facility] [place] [facility] [address] [id number] [place] [address] May, [facility] [place] [facility] [address] [id number] [place] [address] Mar, [facility] [place] [facility] [address] [id number] [place] [address] 16 Mar, 2013 [facility] [place] [facility] [address] [id number] [place] [address] 16 Mar, 2013 [facility] [place] [facility] [address] [id number] [place] [address] 16 Mar, 2013 [facility] [place] [facility] [address] [id number] [place] [address] 254 Mar, [facility] [place] [facility] [address] [id number] [place] [address] 16 Mar, 2013 [facility] [place] [facility] [address] [id number] [place] [address] Feb, [facility] [place] [facility] [address] [id number] [place] [address] Feb, 2012 [facility] [place] [facility] [address] [id number] [place] [address] Feb, [facility] [place] [facility] [address] [id number] [place] [address] Feb, [facility] [place] [facility] [address] [id number] [place] [address] Feb, [facility] [place] [facility] [address] [id number] [place] [address] Feb, [facility] [place] [facility] [address] [id number] [place] [address]783 Feb, [facility] [place] [facility] [address] [id number] [place] [address] 07 Feb, 2013 [facility] [place] [facility] [address] [id number] [place] [address] 18 Jan, 2013 [facility] [place] [facility] [address] [id number] [place] [address] 9983 18 Jan, 2013 [facility] [place] [facility] [address] [id number] [place] [address] 17 Jan, 2013 [facility] [place] [facility] [address] [id number] [place] [address] 16 Jan, 2013 [facility] [place] [facility] [address] [id number] [place] [address] 16 Jan, 2012 [facility] [place] [facility] [address] [id number] [place] [address] 4035 14 Jan, 2013 [facility] [place] [facility] [address] [id number] [place] [address]- [address] 14 Jan, 2012 [facility] [place] [facility] [address] [id number] [place] [address]- [address] 11 Jan, 2013 [facility] [place] [facility] [address] [id number] [place] [address] Jan, [facility] [place] [facility] [address] [id number] [place] [address] Jan, [facility] [place] [facility] [address] [id number] [place] [address] Dec, [facility] [place] [facility] [address] [id number] [place] [address]65 Dec, [facility] [place] [facility] [address] [id number] [place] [address]239 Dec, [facility] [place] [facility] [address] [id number] [place] [address]208 Nov, [facility] [place] [facility] [address] [id number] [place] [address] 8517 Nov, [facility] [place] [facility] [address] [id number] [place] [address] 9584 Nov, [facility] [place] [facility] [address] [id number] [place] [address] Nov, [facility] [place] [facility] [address] [id number] [place] [address] Nov, [facility] [place] [facility] [address] [id number] [place] [address] Nov, [facility] [place] [facility] [address] [id number] [place] [address] 9833 Nov, [facility] [place] [facility] [address] [id number] [place] [address] 9635 Nov, [facility] [place] [facility] [address] [id number] [place] [address]406 Nov, [facility] [place] [facility] [address] [id number] [place] [address]248 Nov, [facility] [place] [facility] [address] [id number] [place] [address] Oct, [facility] [place] [facility] [address] [id number] [place] [address]36 Oct, [facility] [address] [id number] [place] [address] Oct, [facility] [address] [id number] [place] [address] 8060 Oct, [facility] [address] [id number] [place] [address] 9114 Oct, [facility] [address] [id number] [place] [address] Oct, [facility] [address] [id number] [place] [address]996 Oct, [facility] [address] [id number] [place] [address]452 Oct, [facility] [address] [id number] [place] [address] Sep, [facility] [address] [id number] [place] [address]87 Sep, [facility] [address] [id number] [place] [address] 6[address] Sep, [facility] [address] [id number] [place] [address] 3687 Sep, [facility] [address] [id number] [place] [address] August, [facility] [place] [facility] [address] [id number] [place] [address]26 August, [facility] [address] [id number] [place] [address] August, [facility] [address] [place] [id number] Jul, [facility] [address] [place] [id number] Jul, [facility] [address] [id number] [place] [address] Jun, [facility] [place] [facility] [address] [id number] [place] [address] 5510 May, [facility] [place] [facility] [address] [id number] [place] [address] 2926 May, [facility] [place] [facility] [address] [facility] [id number] [place] [address] 2549 Apr, [facility] [place] [facility] [address] [id number] [place] [address]- 2546 Feb, [facility] [place] [facility] [address] [id number] [place] [address] 4010 Feb, [facility] [place] [facility] [address] [id number], [place] [address] Jan, [facility] [place] [facility] [address] [id number] [place] [address]- 2446 Jan, [facility] [place] [facility] [address] [id number], [place] [address] Jan, [facility] [place] [facility] [address] [id number], [place] [address] Jan, [facility] [place] [facility] [address] [facility] [id number], [place] [address]- [address]596 Jan, [facility] [place] [facility] [address] [facility] [id number], [place] [address]- 2546 Dec, [facility] [place] [facility] [address] [facility] [id number], [place] [address] 2546 Dec, [facility] [address] [facility] [id number] [id number] Nov, [facility] [place] [facility] [address] [facility] [id number], [place] [address]- [address]346 Nov, [facility] [place] [facility] [address] [facility] [id number], [place] [address]- 9406 Nov, [facility] [place] [facility] [address] [facility] [id number], [place] [address] 9712 Nov, [facility] [address] [id number] [place] [address] 9[address] August, [facility] [place] [facility] [address] [id number] [place] [address] August, [facility] [place] [facility] [address] [id number] [place] [address]- [address]676 August, [facility] [place] [facility] [address] [id number] [place] [address]- 5919 Jul, [facility] [place] [facility] [address] [id number] [place] [address]- 0869 May, [facility] [place] [facility] [address] [id number] [place] [address]- 1425 May, [facility] [address] [id number] [place] [address]- [address] May, [facility] [place] [facility] [address] [id number], [place] [address] Mar, [facility] [place] [facility] [address] [id number] [place] [address]- 68[address] Jan, [facility] [place] [facility] [address] [facility] [id number], [place] [address] Jan, [facility] [place] [facility] [address] [id number] [place] [address]- 4906 Oct, [facility] [place] [facility] [address] [id number], [place] [address] August, [facility] [place] [facility] [address] [id number] [place] [address]- 8486 Jan, [facility] [place] [facility] [address] [id number], [place] [address]- 3574 Jan, [facility] [place] [facility] [address] [id number], [place] [address] Jan, [facility] [address] [facility] [id number] [place] [address] Jan, IMMUNIZATIONS No Known Immunizations SOCIAL HISTORY Never Assessed REASON FOR VISIT Controlled Med Refill 06/30 PLAN OF CARE VITAL SIGNS MEDICATIONS Unknown Medications RESULTS No Results PROCEDURES No Known procedures [...]
--- OUTSIDE RECORDS SUMMARY | 2018-02-08 21:22 | XMS REPORT ---
Author Author SALINA Roth [facility] Address [address] [place] [address] Care Team Providers Care Real Estate Legal Secretary Name Role Phone [email or web address] SALINA Unavailable PROBLEMS Type Condition ICD9-CM Code CZV28-CO Code Onset Dates Condition Status SNOMED Code Problem History of alcohol abuse Z87.898 Active 383772768 Problem Mood disorder F39 Active 14241560 Problem Generalized anxiety disorder F41.1 Active 50746095 Problem Hypertension, benign I10 Active 31758433 Problem Allergic rhinitis, unspecified allergic rhinitis type J30.9 Active 21780673 Problem Chronic hepatitis C without hepatic coma B18.2 Active 521593568 Problem Obsessive compulsive disorder F42 Active 877547840 Problem Hyperammonemia E72.20 Active 8329257 ALLERGIES No Known Allergies ENCOUNTERS Encounter Location Date Diagnosis [place] [id number] [place] [address] 64076- 4389 Jul, Chronic hepatitis C without hepatic coma B18.2 [place] [id number] [place] [address] 20093- 0355 Jul, Generalized anxiety disorder F41.1 ; Mood disorder F39 and History of hepatitis C Z86.19 [facility] [id number] [place] [address] 35117- 4466 Jul, Chronic hepatitis C without hepatic coma B18.2 [facility] [id number] [place] [address] 20089- 0127 Jun, Chronic hepatitis C without hepatic coma B18.2 [facility] [id number] [place] [address] 22757- 2873 Jun, [facility] [id number] [place] [address] 89759- 7906 May, Chronic hepatitis C without hepatic coma B18.2 [facility] [id number] [place] [address] 67527- 4535 May, Hypertension, benign I10 [facility] [id number] [place] [address] 17097- 5742 Apr, Chronic hepatitis C without hepatic coma B18.2 [facility] [address] 36007- 4510 Apr, Hypertension, benign I10 [facility] [address] 09745- 7463 Mar, Chronic hepatitis C without hepatic coma B18.2 [place] [address] 00371- 4472 Mar, Hypertension, benign I10 [place] [address] 59601- 9320 Mar, Hypertension, benign I10 ; Encounter for immunization Z23 and Strain of right Achilles tendon, initial encounter S86.011A [place] [address] 20779- 6898 Feb, Chronic hepatitis C without hepatic coma B18.2 [place] [id number] [place] [address] 30377- 3155 Jan, Chronic hepatitis C without hepatic coma B18.2 [facility] [id number] [place] [address] 80713 -0361 Jan, Toe pain, right M79.674 and Cellulitis of foot, right L03.115 [facility] [address] 41558- 5967 Dec, Chronic hepatitis C without hepatic coma B18.2 [facility] [id number] [place] [address] 54571- 1175 Nov, Chronic hepatitis C without hepatic coma B18.2 and Eczema of both hands L30.9 [facility] [id number] [place] [address]- 9731 Nov, [facility] [id number] [place] [address]- 6357 Oct, [facility] [id number] [place] [address]- 6367 Sep, [facility] [id number] [place] [address], [place] [address]- 1151 August, [facility] [id number] [place] [address]- 5965 August, [facility] [id number] [place] [address], [place] [address]- 4226 Jul, [facility] [id number] [place] [address]- 4642 Jul, [facility] [id number] [place] [address] 14247- 4591 Jun, [facility] [id number] [place] [address]- 7019 Jun, [facility] [id number], [place] [address]- 4390 May, [facility] [id number] [place] [address]- 4583 Apr, Chronic hepatitis C without hepatic coma B18.2 ; Hyperglycemia R73.9 and Hypertension, benign I10 [facility] [address], [place] [address]- 1063 Apr, Chronic hepatitis C without hepatic coma B18.2 ; Mood disorder F39 ; Hypertension, benign I10 and Hyperglycemia R73.9 [facility] [id number] [place] [address]- 4137 Apr, [facility] [id number], [place] [address]- 1814 Apr, [facility] [id number] [place] [address]- 4715 Apr, [facility] [id number] [place] [address]- 5067 Feb, [facility] [id number] [place] [address]- 8797 Feb, [facility] [id number] [place] [address], [place] [address]- 8049 Feb, [facility] [id number] [place] [address], [place] [address]- 8795 Feb, [facility] [id number] [place] [address], [place] [address]- 2659 Jan, [facility] [id number] [place] [address]- 5492 Jan, Chronic hepatitis C without hepatic coma B18.2 ; Mood disorder F39 ; Encounter for immunization Z23 and Chronic viral hepatitis C B18.2 [facility] [id number] [place] [address]- 8552 Jan, [facility] [id number] [place] [address]- 8296 Jan, [facility] [address], [place] [address]- 8038 Dec, [facility] [id number], [place] [address]- 2080 Dec, [facility] [id number] [place] [address]- 5384 Nov, [facility] [id number] [place] [address]- 8197 Nov, Weakness of both legs M62.81 [facility] [id number] [place] [address]- 6360 Nov, [facility] [id number] [place] [address] 41190- 0501 Nov, [facility] [id number] [place] [address] 84525- 6793 Nov, [facility] [id number] [place] [address] 53163- 4624 Nov, Eczema, unspecified type L30.9 [facility] [id number] [place] [address] 04166- 3013 Nov, [facility] [id number] [place] [address] 34857- 4465 Nov, Eczema, unspecified type L30.9 ; Cessation of tobacco use in previous 12 months Z87.891 and Weakness of both legs M62.81 [facility] [id number] [place] [address] 16244- 0073 Oct, [facility] [id number] [place] [address] 57171- 5745 Oct, [facility] [id number] [place] [address] 42507- 7235 Oct, [facility] [id number] [place] [address] 21086- 2256 Oct, Chronic viral hepatitis C B18.2 [facility] [id number] [place] [address] 82580- 1869 Sep, [facility] [id number] [place] [address] 68616- 1921 Sep, 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 and Generalized anxiety disorder F41.1 [facility] [id number] [place] [address] 76297- 9066 Sep, [facility] [id number] [place] [address] 70990- 0263 August, [facility] [id number] [place] [address] 51432- 3691 August, Hyperammonemia E72.20 [facility] [address], [place] [address]- 3210 August, Hyperammonemia E72.20 [facility] [id number] [place] [address] 00591 2546 August, Hyperammonemia E72.20 and Chronic hepatitis C without hepatic coma B18.2 [facility] [id number] [place] [address] 07675- 1769 August, Chronic viral hepatitis C B18.2 [facility] [id number] [place] [address] 90182- 1775 August, [facility] [id number] [place] [address] 01049- 7422 Jul, Chronic viral hepatitis C B18.2 and Hyperammonemia E72.20 [facility] [id number] [place] [address] 27006- 4741 Jul, Chronic viral hepatitis C B18.2 [facility] [address], [place] [address]- 2859 Jul, [facility] [id number] [place] [address] 55521- 6198 Jul, [facility] [id number], [place] [address]- 9365 Jun, [facility] [id number] [place] [address] 64455- 2541 Jun, Chronic viral hepatitis C B18.2 and Hyperammonemia E72.20 [facility] [id number], [place] [address]- 1166 Jun, [facility] [id number], [place] [address]- 3370 18 Jun, 2015 [facility] [id number], [place] [address]- 9047 16 Jun, 2015 Chronic viral hepatitis C B18.2 [facility] [id number], [place] [address]- 7836 Jun, [facility] [id number] [place] [address]- 4616 07 Jun, 2015 Chronic viral hepatitis C B18.2 [facility] [address] [place] [address]- 1826 17 May, 2015 Hepatitis C, chronic B18.2 and Chronic viral hepatitis C B18.2 [facility] [address] [place] [address]- 5481 May, [facility] [id number] [place] [address], [place] [address]- 7807 Apr, [facility] [id number], [place] [address]- 6798 Apr, Chronic viral hepatitis C B18.2 and Hyperammonemia E72.20 [facility] [id number], [place] [address]- 3130 Apr, Chronic viral hepatitis C B18.2 [facility] [id number] [place] [address]- 5499 Apr, Hyperammonemia E72.20 [facility] [id number], [place] [address]- 7256 Apr, [facility] [id number], [place] [address]- 4550 Apr, [facility] [id number], [place] [address]- 0478 Apr, Chronic hepatitis C without hepatic coma B18.2 ; Hyperammonemia E72.20 and Chronic viral hepatitis C B18.2 [facility] [address], [place] [address]- 9918 Mar, Shortness of breath R06.02 [facility] [id number] [place] [address] 46171- 8086 31 Mar, 2015 Mood disorder F39 and Major depressive disorder, recurrent episode, unspecified 296.30 [facility] [address] 80767- 1664 28 Mar, 2015 [facility] [id number] [place] [address] 09038- 4305 18 Mar, 2015 [facility] [address] 13595- 9513 15 Mar, 2015 [facility] [id number] [place] [address] 45843 -7576 11 Mar, 2015 Seasonal allergies J30.2 ; Shortness of breath R06.02 and Cough R05 [facility] [id number] [place] [address] 34279- 5645 Mar, Hyperammonemia E72.20 ; Mood disorder F39 and History of alcohol abuse Z87.898 [facility] [id number] [place] [address] 87514- 1844 Mar, Hyperammonemia E72.20 [facility] [address] 40779- 2685 Mar, [facility] [id number] [place] [address] 27316- 8914 Feb, [facility] [id number] [place] [address] 65595- 1712 Feb, [facility] [id number] [place] [address] 70336- 2839 Feb, Hyperammonemia E72.20 [facility] [address] 93231- 4973 Feb, [facility] [id number] [place] [address] 88234- 2389 17 Feb, 2015 [facility] [address] 93988- 2424 Feb, [facility] [id number] [place] [address] 12996- 3917 Feb, [facility] [id number] [place] [address] 76644- 0080 Feb, Chronic viral hepatitis C B18.2 [facility] [id number] [place] [address] 76490- 4385 Feb, Chronic viral hepatitis C B18.2 [facility] [id number] [place] [address] 92182- 9655 Feb, [facility] [id number] [place] [address] 21576- 6630 Feb, Chronic viral hepatitis C B18.2 and Confusion R41.0 [facility] [id number] [place] [address] 42563- 5498 Feb, [facility] [id number] [place] [address] 57183- 9386 Jan, [facility] [id number] [place] [address] 18827- 2778 Jan, Confusion R41.0 [facility] [id number] [place] [address] 63269- 7993 Jan, [facility] [id number] [place] [address] 80974- 4545 Jan, [facility] [id number] [place] [address] 46859- 3705 Jan, [facility] [id number] [place] [address] 01005- 0312 Jan, [facility] [id number] [place] [address] 24879- 5537 Jan, Chronic viral hepatitis C B18.2 and 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 [facility] [id number] [place] [address] 29742- 3812 Jan, [facility] [id number] [place] [address] 02166- 0630 Jan, [facility] [id number] [place] [address] 46567- 0578 Jan, [facility] [id number] [place] [address] 27880- 0620 Jan, [facility] [address] 42382- 0809 Jan, Chronic viral hepatitis C B18.2 [facility] [id number] [place] [address] 25925- 1417 16 Jan, 2015 [facility] [id number] [place] [address] 42902- 0454 Jan, Back pain at L4-L5 level M54.5 and Confusion R41.0 [facility] [id number] [place] [address] 43028- 0287 Jan, [facility] [id number] [place] [address] 42019- 3488 30 Dec, 2014 Chronic viral hepatitis C B18.2 and Flu vaccine need V04.81 [facility] [id number] [place] [address] 26549- 9067 30 Dec, 2014 Chronic viral hepatitis C B18.2 [facility] [id number] [place] [address] 21786- 2775 28 Dec, 2014 [facility] [id number] [place] [address] 92308- 7867 Dec, Polyuria 788.42 [facility] [id number] [place] [address] 15705- 6262 Dec, Polyuria 788.42 ; Polydipsia 783.5 ; Dizziness 780.4 and Hepatitis C, chronic 070.54 [facility] [id number] [place] [address] 19902- 4060 Dec, Major depressive disorder, recurrent episode, unspecified 296.30 and Generalized anxiety disorder 300.02 [facility] [address], [place] [address]- 1296 Nov, [facility] [address], [place] [address]- 5250 Nov, [facility] [id number] [place] [address] 92079- 5189 Nov, [facility] [id number] [place] [address] 91395- 7363 Oct, [facility] [id number] [place] [address] 92168- 4646 Sep, [facility] [id number] [place] [address] 75561- 0556 August, Obsessive-compulsive disorders 300.3 ; Generalized anxiety disorder 300.02 and Major depressive disorder, recurrent episode, unspecified 296.30 [facility] [id number] [address]- 1185 August, Chronic hepatitis C without mention of hepatic coma 070.54 ; Hypertension 401.9 and Seasonal allergies 477.9 [facility] [address], [place] [address]- 1195 Jul, [facility] [address], [place] [address]- 4758 Jul, [facility] [address], [place] [address]- 5345 Jun, [facility] [id number], [place] [address]- 3098 Jun, [facility] [id number] [address] 6213 May, [facility] [address], [place] [address]- 5128 May, [facility] [place] [facility] [address] [id number] [place] [address]- 8000 May, [facility] [place] [facility] [address] [id number] [place] [address]- 5174 May, [facility] [place] [facility] [address] [id number] [place] [address]- 4015 Apr, [facility] [place] [facility] [address] [id number] [place] [address]- 0628 Apr, [facility] [place] [facility] [address] [id number] [place] [address]- 3150 Apr, [facility] [place] [facility] [address] [id number] [place] [address]- 1027 Apr, [facility] [place] [facility] [address] [id number] [place] [address] Apr, [facility] [place] [facility] [address] [id number] [place] [address] Apr, [facility] [place] [facility] [address] [id number] [place] [address] Mar, [facility] [place] [facility] [address] [id number] [place] [address] Mar, [facility] [place] [facility] [address] [id number] [place] [address] Mar, [facility] [place] [facility] [address] [id number] [place] [address] Mar, [facility] [place] [facility] [address] [id number] [place] [address] Mar, [facility] [place] [facility] [address] [id number] [place] [address] Mar, [facility] [place] [facility] [address] [id number] [place] [address] Mar, [facility] [place] [facility] [address] [id number] [place] [address] Mar, [facility] [place] [facility] [address] [id number] [place] [address] Mar, [facility] [place] [facility] [address] [id number] [place] [address] Feb, [facility] [place] [facility] [address] [id number] [place] [address] Feb, [facility] [place] [facility] [address] [id number] [place] [address]- [address] Feb, [facility] [place] [facility] [address] [id number] [place] [address] 39[address] Feb, [facility] [place] [facility] [address] [id number] [place] [address]- [address] Feb, [facility] [place] [facility] [address] [id number] [place] [address]- [address] Jan, [facility] [place] [facility] [address] [id number] [place] [address] Jan, [facility] [place] [facility] [address] [id number] [place] [address] Jan, [facility] [place] [facility] [address] [id number] [place] [address]- [address] Jan, [facility] [place] [facility] [address] [id number], [place] [address] Jan, [facility] [place] [facility] [address] [id number], [place] [address] Jan, [facility] [place] [facility] [address] [id number] [place] [address]- [address] Jan, [facility] [place] [facility] [address] [id number] [place] [address] Jan, [facility] [place] [facility] [address] [id number] [place] [address]- [address] Jan, [facility] [place] [facility] [address] [id number] [place] [address] Nov, [facility] [place] [facility] [address] [id number] [place] [address] Nov, [facility] [place] [facility] [address] [id number] [place] [address] Nov, [facility] [place] [facility] [address] [id number] [place] [address]- [address] Oct, [facility] [place] [facility] [address] [id number] [place] [address] Oct, [facility] [place] [facility] [address] [id number] [place] [address] Oct, [facility] [place] [facility] [address] [id number] [place] [address] Oct, [facility] [place] [facility] [address] [id number] [place] [address] Sep, [facility] [place] [facility] [address] [id number] [place] [address] Sep, [facility] [place] [facility] [address] [id number] [place] [address] Sep, [facility] [place] [facility] [address] [id number] [place] [address] Sep, [facility] [place] [facility] [address] [id number] [place] [address] Sep, [facility] [place] [facility] [address] [id number] [place] [address] Sep, [facility] [place] [facility] [address] [id number] [place] [address] August, [facility] [place] [facility] [address] [id number] [place] [address] August, [facility] [place] [facility] [address] [id number] [place] [address] Jul, [facility] [place] [facility] [address] [id number] [place] [address] Jul, [facility] [place] [facility] [address] [id number] [place] [address]- [address] Jul, [facility] [place] [facility] [address] [id number] [place] [address]- [address] Jul, [facility] [place] [facility] [address] [id number] [place] [address] Jul, [facility] [place] [facility] [address] [id number] [place] [address] Jul, [facility] [place] [facility] [address] [id number] [place] [address] Jul, [facility] [place] [facility] [address] [id number] [place] [address] Jul, [facility] [place] [facility] [address] [id number] [place] [address] Jul, [facility] [place] [facility] [address] [id number] [place] [address]- [address] Jul, [facility] [place] [facility] [address] [id number] [place] [address] Jun, [facility] [place] [facility] [address] [id number] [place] [address] Jun, [facility] [place] [facility] [address] [id number], [place] [address] Jun, [facility] [place] [facility] [address] [id number] [place] [address] Jun, [facility] [place] [facility] [address] [id number] [place] [address] May, [facility] [place] [facility] [address] [id number] [place] [address] May, [facility] [place] [facility] [address] [id number], [place] [address] 12 May, 2013 [facility] [place] [facility] [address] [id number] [place] [address] 12 May, 2013 [facility] [place] [facility] [address] [id number] [place] [address] 10 May, 2013 [facility] [place] [facility] [address] [id number] [place] [address] 10 May, 2013 [facility] [place] [facility] [address] [id number] [place] [address] 16 Mar, 2013 [facility] [place] [facility] [address] [id number] [place] [address] Mar, [facility] [place] [facility] [address] [id number] [place] [address] Mar, [facility] [place] [facility] [address] [id number] [place] [address] Mar, [facility] [place] [facility] [address] [id number] [place] [address] 9447 Mar, [facility] [place] [facility] [address] [id number] [place] [address] 8947 Mar, [facility] [place] [facility] [address] [facility] [id number] [place] [address] Feb, [facility] [place] [facility] [address] [id number] [place] [address] Feb, [facility] [place] [facility] [address] [id number] [place] [address] 1072 Feb, [facility] [place] [facility] [address] [id number] [place] [address] Feb, [facility] [place] [facility] [address] [id number] [place] [address] Feb, [facility] [place] [facility] [address] [id number] [place] [address] 28[address] Feb, [facility] [place] [facility] [address] [id number] [place] [address] 07 Feb, 2012 [facility] [place] [facility] [address] [id number] [place] [address] 2446 07 Feb, 2012 [facility] [place] [facility] [address] [id number] [place] [address]98 18 Jan, 2013 [facility] [place] [facility] [address] [id number] [place] [address]12 18 Jan, 2013 [facility] [place] [facility] [address] [id number] [place] [address] 17 Jan, 2013 [facility] [place] [facility] [address] [id number] [place] [address] 16 Jan, 2013 [facility] [place] [facility] [address] [id number] [place] [address] 16 Jan, 2013 [facility] [place] [facility] [address] [id number] [place] [address] 14 Jan, 2013 [facility] [place] [facility] [address] [id number] [place] [address] 14 Jan, 2013 [facility] [place] [facility] [address] [id number] [place] [address] 11 Jan, 2013 [facility] [place] [facility] [address] [id number] [place] [address] 8711 11 Jan, 2013 [facility] [place] [facility] [address] [id number], [place] [address] 10 Jan, 2013 [facility] [place] [facility] [address] [id number] [place] [address] 27 Dec, 2012 [facility] [place] [facility] [address] [id number] [place] [address]196 18 Dec, 2012 [facility] [place] [facility] [address] [id number] [place] [address] 3488 18 Dec, 2012 [facility] [place] [facility] [address] [id number] [place] [address] Nov, [facility] [place] [facility] [address] [id number] [place] [address]266 Nov, [facility] [place] [facility] [address] [id number] [place] [address]761 Nov, [facility] [place] [facility] [address] [id number] [place] [address] 5693 Nov, [facility] [place] [facility] [address] [id number] [place] [address] Nov, [facility] [place] [facility] [address] [id number] [place] [address]39 Nov, [facility] [place] [facility] [address] [id number] [place] [address] 2847 Nov, [facility] [place] [facility] [address] [id number] [place] [address] 9687 Nov, [facility] [place] [facility] [address] [id number] [place] [address] 6620 Nov, [facility] [place] [facility] [address] [id number] [place] [address] Nov, [facility] [place] [facility] [address] [id number] [place] [address] 7525 Oct, [facility] [place] [facility] [address] [id number] [place] [address]30 Oct, [facility] [place] [facility] [address] [id number] [place] [address] 0322 Oct, [facility] [place] [facility] [address] [id number] [place] [address] 8032 Oct, [facility] [place] [facility] [address] [id number] [place] [address] 2822 Oct, [facility] [place] [facility] [address] [id number] [place] [address] 9640 Oct, [facility] [place] [facility] [address] [id number] [place] [address] 9896 Oct, [facility] [address] [id number] [place] [address] 9400 Oct, [facility] [place] [facility] [address] [id number] [place] [address] 3468 Sep, [facility] [address] [id number] [place] [address] 8512 Sep, [facility] [place] [facility] [address] [id number] [place] [address] 6893 Sep, [facility] [address] [id number] [place] [address] Sep, [facility] [address] [id number] [place] [address] 1177 August, [facility] [address] [id number] [place] [address] 8500 August, [facility] [address] [id number] [place] [address] August, [facility] [address] [id number] Jul, [facility] [address] [id number] Jul, [facility] [address] [id number] [place] [address]289 Jun, [facility] [address] [id number] [place] [address]- 0068 May, [facility] [place] [facility] [address] [id number] [place] [address]- 1630 May, [facility] [place] [facility] [address] [id number] [place] [address] 1566 Apr, [facility] [place] [facility] [address] [id number] [place] [address]- 1296 Feb, [facility] [address] [id number], [place] [address] 2546 Feb, [facility] [place] [facility] [address] [id number] [place] [address]- 7676 Jan, [facility] [place] [facility] [address] [id number] [place] [address]- 8376 Jan, [facility] [place] [facility] [address] [id number] [place] [address]- 7806 Jan, [facility] [place] [facility] [address] [id number] [place] [address] 2546 Jan, [facility] [place] [facility] [address] [id number] [place] [address]- 0016 Jan, [facility] [place] [facility] [address] [id number] [place] [address]- 2546 Dec, [facility] [place] [facility] [address] [id number], [place] [address] Dec, [facility] [address] [place] [address] [id number][place] [id number] Nov, [facility] [place] [facility] [address] [id number] [place] [address]- 5176 Nov, [facility] [place] [facility] [address] [id number] [place] [address]- 9256 Nov, [facility] [place] [facility] [address] [id number], [place] [address]606 Nov, [facility] [place] [facility] [address] [id number], [place] [address] August, [facility] [place] [facility] [address] [id number] [place] [address]- 0246 August, [facility] [place] [facility] [address] [id number] [place] [address]- 7826 August, [facility] [place] [facility] [address] [id number] [place] [address]- 9166 Jul, [facility] [place] [facility] [id number], [place] [address] May, [facility] [id number], [place] [address] May, [facility] [id number], [place] [address]46 May, [facility] [id number], [place] [address] Mar, [facility] [id number], [place] [address] 2546 Jan, [facility] [id number] [place] [address] Jan, [facility] [id number], [place] [address] Oct, [facility] [id number] [place] [address]66 August, [facility] [id number], [place] [address] Jan, [facility] [id number], [place] [address] 2936 Jan, [facility] [address], [place] [address] 59[address] Jan, [facility] [id number], [place] [address] Jan, IMMUNIZATIONS No Known Immunizations SOCIAL HISTORY Never Assessed REASON FOR VISIT right second toe pain that has gone to the top of his foot. area is red and apinful. been like this for 10 days. denies any injury to the toe and/or foot. [email or web address] PLAN OF CARE Activity Details Follow Up prn Reason: VITAL SIGNS Height 72 in 2017-01-26 Weight 257.4 lbs 2017-01-26 Temperature 98.3 degrees Fahrenheit 2017-01-26 Heart Rate 66 bpm 2017-01-26 Respiratory Rate 20 2017-01-26 BMI 34.91 kg/m2 2017-01-26 Blood pressure systolic 132 mmHg 2017-01-26 Blood pressure diastolic 80 mmHg 2017-01-26 MEDICATIONS Medication Instructions Dosage Frequency Start Date End Date Duration Status Propranolol HCl 40 MG Orally Three times a day 1 tablet 8h Active Xanax 2 MG Orally 4 times a day 1 tablet 6h Jun, 28 days Active Hydrochlorothiazide 25 MG Orally Once a day 1 tablet in the morning 24h Active Dandelion Root 520 MG Active Aspirin 81 MG Orally Once a day 1 tablet 24h May, Active Potassium Chloride ER 10 MEQ TAKE 1 CAPSULE EVERY DAY 90 Active Lexapro 20 MG Orally Once a day 1 tablet 24h Active Centrum Adults Active Claritin 10 mg Orally Once a day 1 tablet 24h August, 90 Active Ketoconazole 2 % Externally no more than twice a day 1 application to affected area Nov, Active Triamcinolone Acetonide 0.1 % Externally Twice a day 1 application to affected area 12h Nov, Active Mirtazapine 15 MG Orally Once a day 1 tablet at bedtime 24h Active Bactrim DS 800-160 MG Orally Twice a day 1 tablet 12h Jan,Jan 10 day(s) Active Xifaxan 200 MG Orally 3 times a day 2 tablets 8h Active Gabapentin 600 MG TAKE 1/2 TABLET EVERY MORNING AND AFTERNOON AND TAKE 1 TABLET AT BEDTIME Active Albuterol Sulfate HFA 108 (90 Base) MCG/ACT Inhalation every 4 hrs 2 puffs as needed 4h Mar, Active RESULTS Name Result Date Reference Range URIC ACID, SERUM 2017-01-26 Uric Acid, Serum 8.6 3.7-8.6 CBC 2017-01-26 WBC 8.3 3.4-10.8 RBC 4.93 4.14-5.80 Hemoglobin 15.5 12.6-17.7 Hematocrit 44.2 37.5-51.0 MCV 90 79-97 MCH 31.4 26.6-33.0 MCHC 35.1 31.5-35.7 RDW 13.5 12.3-15.4 Platelets 212 150-379 Neutrophils 59 Not Estab. Lymphs 30 Not Estab. Monocytes 8 Not Estab. Eos 3 Not Estab. Basos 0 Not Estab. Neutrophils (Absolute) 4.8 1.4-7.0 Lymphs (Absolute) 2.5 0.7-3.1 Monocytes(Absolute) 0.6 0.1-0.9 Eos (Absolute) 0.3 0.0-0.4 Baso (Absolute) 0.0 0.0-0.2 Immature Granulocytes 0 Not Estab. Immature Grans (Abs) 0.0 0.0-0.1 ESR/SED RATE 2017-01-26 Sedimentation Rate-Westergren 19 0-30 CMP 2017-01-26 Glucose, Serum 116 65-99 BUN 7 6-24 Creatinine, Serum 1.25 0.76-1.27 eGFR If NonAfricn Am 63 >59 eGFR If Africn Am 72 >59 BUN/Creatinine Ratio 6 9-20 Sodium, Serum 142 134-144 Potassium, Serum 4.2 3.5-5.2 Chloride, Serum 98 96-106 Carbon Dioxide, Total 28 18-29 Calcium, Serum 10.0 8.7-10.2 Protein, Total, Serum 7.1 6.0-8.5 Albumin, Serum 4.0 3.5-5.5 Globulin, Total 3.1 1.5-4.5 A/G Ratio 1.3 1.2-2.2 Bilirubin, Total 0.4 0.0-1.2 Alkaline Phosphatase, S 127 39-117 AST (SGOT) 27 0-40 ALT (SGPT) 19 0-44 PROCEDURES Procedure Date Ordered Result Body Site LAB NOT BILLED BY [employer] Jan 26, 2017 [facility] VISIT ESTABLISHED PATIENT Jan 26, 2017 VENIPUNCT, ROUTINE* Jan 26, 2017 INSTRUCTIONS MEDICATIONS ADMINISTERED No Known Medications [...]
--- OUTSIDE RECORDS SUMMARY | 2018-02-08 21:23 | XMS REPORT ---
Author Author ROSIO IRBY Organization [facility] Address [address] [place] [address] Care Team Providers Care Inspector Mechanical Name Role Phone ROSIO IRBY Unavailable PROBLEMS Type Condition ICD9-CM Code IDR96-YC Code Onset Dates Condition Status SNOMED Code Problem History of alcohol abuse Z87.898 Active 893054062 Problem Mood disorder F39 Active 16504163 Problem Generalized anxiety disorder F41.1 Active 43228243 Problem Hypertension, benign I10 Active 20713381 Problem Allergic rhinitis, unspecified allergic rhinitis type J30.9 Active 34979052 Problem Chronic hepatitis C without hepatic coma B18.2 Active 118007314 Problem Obsessive compulsive disorder F42 Active 682899866 Problem Hyperammonemia E72.20 Active 1232415 ALLERGIES No Information ENCOUNTERS Encounter Location Date Diagnosis [place] [id number] [place] [address] 66366- 0097 August, [place] [address] [place] [id number] [place] [address] 49267- 0754 Jul, Chronic hepatitis C without hepatic coma B18.2 [place] [id number] [place] [address] 05119- 0125 Jul, Generalized anxiety disorder F41.1 ; Mood disorder F39 and History of hepatitis C Z86.19 [facility] [id number] [place] [address] 82904- 5800 Jul, Chronic hepatitis C without hepatic coma B18.2 [place] [id number] [place] [address] 62543- 7653 Jun, Chronic hepatitis C without hepatic coma B18.2 [place] [id number] [place] [address] 46450- 6976 Jun, [facility] [address], [place] [address] 4901 May, Chronic hepatitis C without hepatic coma B18.2 [facility] [address] [place] [id number] [place] [address] 96094- 0945 May, Hypertension, benign I10 [facility] [address] [place] [id number] [place] [address] 66684- 9449 Apr, Chronic hepatitis C without hepatic coma B18.2 [facility] [address] [place] [address] [id number] [place] [address] 54385- 6866 Apr, Hypertension, benign I10 [place] [address] [address] [id number] [place] [address] 30429- 5035 Mar, Chronic hepatitis C without hepatic coma B18.2 [place] [address] [address] [id number] [place] [address] 23791- 7050 Mar, Hypertension, benign I10 [place] [address] [place] [id number] [place] [address] 09168- 1757 Mar, Hypertension, benign I10 ; Encounter for immunization Z23 and Strain of right Achilles tendon, initial encounter S86.011A [place] [address] [place] [id number] [place] [address] 33738- 3286 Feb, Chronic hepatitis C without hepatic coma B18.2 [place] [address] [place] [id number] [place] [address] 38479- 8231 Jan, Chronic hepatitis C without hepatic coma B18.2 [facility] [id number] [place] [address] 24553 -2092 Jan, Toe pain, right M79.674 and Cellulitis of foot, right L03.115 [facility] [id number] [place] [address] 47524- 2989 Dec, Chronic hepatitis C without hepatic coma B18.2 [facility] [address] [place] [id number] [place] [address] 62911- 0539 Nov, Chronic hepatitis C without hepatic coma B18.2 and Eczema of both hands L30.9 [facility] [address], [place] [address]- 9546 Nov, [facility] [address], [place] [address]- 1465 Oct, [facility] [address] [address]- 3567 Sep, [facility] [id number] [address]- 5496 August, [facility] [id number] [place] [address] 01076- 3177 August, [facility] [id number] [place] [address] 28741- 8943 Jul, [facility] [id number] [place] [address] 11196- 4585 Jul, [facility] [address], [place] [address]- 0173 Jun, [facility] [address] [address]- 7153 Jun, [facility] [address] [address]- 3590 May, [facility] [address] [address]- 1197 Apr, Chronic hepatitis C without hepatic coma B18.2 ; Hyperglycemia R73.9 and Hypertension, benign I10 [facility] [address], [place] [address]- 4476 Apr, Chronic hepatitis C without hepatic coma B18.2 ; Mood disorder F39 ; Hypertension, benign I10 and Hyperglycemia R73.9 [facility] [address], [place] [address]- 7646 Apr, [facility] [id number] [address]- 9063 Apr, [facility] [address], [place] [address]- 6244 Apr, [facility] [address] [address]- 1728 Feb, [facility] [id number] [place] [address] 47592- 3525 Feb, [facility] [id number] [place] [address] 68373- 4374 Feb, [facility] [id number] [place] [address] 67253- 7569 Feb, [facility] [id number] [place] [address] 73716- 4620 Jan, [facility] [address] [id number] [place] [address] 91293- 3444 Jan, Chronic hepatitis C without hepatic coma B18.2 ; Mood disorder F39 ; Encounter for immunization Z23 and Chronic viral hepatitis C B18.2 [facility] [id number] [address]- 0713 Jan, [facility] [id number] [address]- 3051 Jan, [facility] [address], [place] [address]- 1817 Dec, [facility] [address] [address]- 2493 Dec, [facility] [address] [address]- 7714 Nov, [facility] [id number] [address]- 8524 Nov, Weakness of both legs M62.81 [facility] [id number] [address]- 3416 Nov, [facility] [id number] [place] [address] 31152- 7757 Nov, [facility] [address] [address] [id number] [place] [address] 74895- 3409 Nov, [facility] [id number] [place] [address] 05196- 8301 Nov, Eczema, unspecified type L30.9 [facility] [address] [id number] [place] [address] 21478- 9980 Nov, [facility] [address] [place] [id number] [place] [address] 67064- 5157 Nov, Eczema, unspecified type L30.9 ; Cessation of tobacco use in previous 12 months Z87.891 and Weakness of both legs M62.81 [place] [address] [id number] [place] [address] 54839- 6992 Oct, [facility] [address] [place] [id number] [place] [address] 03032- 3739 Oct, [facility] [address] [place] [address] [id number] [place] [address] 74743- 5169 Oct, [facility] [address] [place] [address] [id number] [place] [address] 15778- 5075 Oct, Chronic viral hepatitis C B18.2 [facility] [address] [address] [id number] [place] [address] 90720- 6580 Sep, [facility] [address] [place] [id number] [place] [address] 66167- 8286 Sep, 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 and Generalized anxiety disorder F41.1 [facility] [address] [place] [id number] [place] [address] 64867- 3545 Sep, [facility] [address] [place] [id number] [place] [address] 52950- 4922 August, [facility] [id number] [address]- 5464 August, Hyperammonemia E72.20 [facility] [address] [place] [address] [id number] [place] [address] 64483- 6696 August, Hyperammonemia E72.20 [facility] [address] [id number] [place] [address] 07668 2546 August, Hyperammonemia E72.20 and Chronic hepatitis C without hepatic coma B18.2 [facility] [address] [place] [id number] [place] [address] 68858 2546 August, Chronic viral hepatitis C B18.2 [facility] [address] [place] [id number] [place] [address] 87866- 4086 August, [facility] [id number] [place] [address] 69124- 2449 Jul, Chronic viral hepatitis C B18.2 and Hyperammonemia E72.20 [facility] [id number] [address] 2546 Jul, Chronic viral hepatitis C B18.2 [facility] [address] [id number] [place] [address] 90477 2546 Jul, [facility] [address], [place] [address] 2544 Jul, [facility] [address], [place] [address] 2546 Jun, [facility] [id number] [place] [address] 76892- 2546 Jun, Chronic viral hepatitis C B18.2 and Hyperammonemia E72.20 [facility] [address], [place] [address] 2546 Jun, [facility] [address], [place] [address] 2546 18 Jun, 2015 [facility] [id number] [address]- 7291 16 Jun, 2015 Chronic viral hepatitis C B18.2 [facility] [id number] [place] [address] 03494- 7773 10 Jun, 2015 [facility] [id number] [place] [address] 75965- 6148 07 Jun, 2015 Chronic viral hepatitis C B18.2 [facility] [id number] [place] [address] 99175- 4836 17 May, 2015 Hepatitis C, chronic B18.2 and Chronic viral hepatitis C B18.2 [facility] [address] [address] [id number] [place] [address] 53056- 9941 May, [facility] [id number] [place] [address] 44507- 0348 Apr, [facility] [id number] [place] [address] 20824- 6181 Apr, Chronic viral hepatitis C B18.2 and Hyperammonemia E72.20 [facility] [id number] [place] [address] 09865- 2119 Apr, Chronic viral hepatitis C B18.2 [facility] [id number] [place] [address] 21456- 9593 Apr, Hyperammonemia E72.20 [facility] [id number] [place] [address] 18765- 7000 Apr, [facility] [id number] [place] [address] 32789- 6111 Apr, [facility] [id number] [place] [address] 49071- 4750 Apr, Chronic hepatitis C without hepatic coma B18.2 ; Hyperammonemia E72.20 and Chronic viral hepatitis C B18.2 [facility] [address] [place] [address] 63714- 2717 Mar, Shortness of breath R06.02 [facility] [address] [place] [address] 54801- 2976 31 Mar, 2015 Mood disorder F39 and Major depressive disorder, recurrent episode, unspecified 296.30 [facility] [id number] [place] [address] 39902- 1218 28 Mar, 2015 [facility] [id number] [place] [address] 03367- 1379 18 Mar, 2015 [facility] [id number] [place] [address] 22979- 8502 15 Mar, 2015 [facility] [address] 80375 -6587 11 Mar, 2015 Seasonal allergies J30.2 ; Shortness of breath R06.02 and Cough R05 [facility] [address] [id number] [place] [address] 39348- 1416 Mar, Hyperammonemia E72.20 ; Mood disorder F39 and History of alcohol abuse Z87.898 [facility] [id number] [place] [address] 14975- 6534 Mar, Hyperammonemia E72.20 [facility] [id number] [place] [address] 32310- 6855 Mar, [facility] [id number] [place] [address] 90927- 6117 Feb, [facility] [id number] [place] [address] 85371- 5862 Feb, [facility] [id number] [place] [address] 51218- 5228 Feb, Hyperammonemia E72.20 [facility] [id number] [place] [address] 33250- 0261 Feb, [facility] [id number] [place] [address] 31838- 2609 Feb, [place] [address], [place] [address]- 0644 Feb, [facility] [address] [address] [id number] [place] [address] 17700- 8622 Feb, [facility] [address] [place] [address] 41213- 4647 Feb, Chronic viral hepatitis C B18.2 [facility] [id number] [place] [address] 83574- 2951 Feb, Chronic viral hepatitis C B18.2 [facility] [id number] [place] [address] 90756- 5142 Feb, [facility] [id number] [place] [address] 58993- 1353 Feb, Chronic viral hepatitis C B18.2 and Confusion R41.0 [facility] [id number] [place] [address] 60428- 8666 Feb, [facility] [id number] [place] [address] 33577- 2887 Jan, [facility] [id number] [place] [address] 80330- 3786 Jan, Confusion R41.0 [facility] [id number] [place] [address] 38932- 3394 Jan, [facility] [address] [place] [address] 70844- 1412 Jan, [facility] [address] [place] [address] 22988- 8940 Jan, [facility] [id number] [place] [address] 65786- 3762 Jan, [facility] [address] [place] [address] 69413- 3816 Jan, Chronic viral hepatitis C B18.2 and 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 [facility] [address], [place] [address]- 5205 Jan, [facility] [id number] [place] [address] 31669- 8661 Jan, [facility] [id number] [place] [address] 12408- 8445 Jan, [facility] [id number] [place] [address] 76277- 5304 Jan, [facility] [id number] [place] [address] 70540- 9245 Jan, Chronic viral hepatitis C B18.2 [facility] [address] [address] [id number] [place] [address] 55932- 6656 16 Jan, 2015 [facility] [address] [place] [address] [id number] [place] [address] 31663- 7622 Jan, Back pain at L4-L5 level M54.5 and Confusion R41.0 [facility] [id number] [place] [address] 78753- 5108 Jan, [facility] [id number] [place] [address] 17823- 3862 30 Dec, 2014 Chronic viral hepatitis C B18.2 and Flu vaccine need V04.81 [facility] [address] [id number] [place] [address] 22821- 8277 30 Dec, 2014 Chronic viral hepatitis C B18.2 [facility] [address] [place] [address] 77938- 9359 28 Dec, 2014 [facility] [address] [place] [address] [id number] [place] [address] 84451- 4749 22 Dec, 2014 Polyuria 788.42 [facility] [id number] [place] [address] 36662- 2533 Dec, Polyuria 788.42 ; Polydipsia 783.5 ; Dizziness 780.4 and Hepatitis C, chronic 070.54 [facility] [address], [place] [address]- 4810 Dec, Major depressive disorder, recurrent episode, unspecified 296.30 and Generalized anxiety disorder 300.02 [facility] [address], [place] [address]- 8414 Nov, [facility] [id number], [place] [address]- 1201 Nov, [facility] [id number] [place] [address] 65341- 4641 Nov, [facility] [id number] [place] [address] 81418- 5222 Oct, [facility] [id number] [place] [address] 59057- 9729 Sep, [facility] [id number] [place] [address] 71175- 9882 August, Obsessive-compulsive disorders 300.3 ; Generalized anxiety disorder 300.02 and Major depressive disorder, recurrent episode, unspecified 296.30 [facility] [address] [place] [address] 30913- 7760 August, Chronic hepatitis C without mention of hepatic coma 070.54 ; Hypertension 401.9 and Seasonal allergies 477.9 [facility] [address], [place] [address]- 0958 Jul, [facility] [id number] [place] [address] 17698- 8259 Jul, [facility] [address] [address]- 4988 Jun, [facility] [id number] [place] [address] 07889- 6048 Jun, [facility] [address], [place] [address]- 1017 May, [facility] [id number] [place] [address] 85869- 8270 May, [facility] [address] [id number] [place] [address]- 1806 May, [facility] [place] [facility] [address] [id number] [place] [address]- 6446 May, [facility] [place] [facility] [address] [id number] [place] [address]- 9371 Apr, [facility] [place] [facility] [address] [id number] [place] [address]- 5134 Apr, [facility] [place] [facility] [address] [id number] [place] [address]- 9448 Apr, [facility] [place] [facility] [address] [id number] [place] [address]- 4616 Apr, [facility] [address] [id number] [place] [address]- 5969 Apr, [facility] [place] [facility] [address] [id number] [place] [address]- 2163 Apr, [facility] [address] [id number] [place] [address]- 1401 Mar, [facility] [place] [facility] [address] [facility] [id number] [place] [address]- 0804 Mar, [facility] [place] [facility] [address] [id number] [place] [address]- 4397 Mar, [facility] [place] [facility] [address] [id number] [place] [address]- 4678 Mar, [facility] [place] [facility] [address] [id number] [place] [address]- 4269 Mar, [facility] [place] [facility] [address] [id number] [place] [address]- 2680 Mar, [facility] [place] [facility] [address] [id number] [place] [address]- 4013 Mar, [facility] [place] [facility] [address] [id number] [place] [address]- 9118 Mar, [facility] [place] [facility] [address] [id number] [place] 9261 Mar, [facility] [place] [facility] [address] [id number] [place] [address]- 0660 Feb, [facility] [place] [facility] [address] [id number] [place] [address]- 6359 Feb, [facility] [place] [facility] [address] [id number] [place] [address]- 4305 Feb, [facility] [place] [facility] [address] [id number] [place] [address]- 5163 Feb, [facility] [place] [facility] [address] [id number] [place] [address]- 8102 Feb, [facility] [place] [facility] [address] [id number] [place] [address]- 8937 Jan, [facility] [place] [facility] [address] [id number] [place] [address]- 6505 Jan, [facility] [place] [facility] [address] [id number] [place] [address]- 6931 Jan, [facility] [place] [facility] [address] [id number] [place] [address]- 1355 Jan, [facility] [place] [facility] [address] [id number] [place] [address]- 2700 Jan, [facility] [place] [facility] [address] [id number] [place] [address]- 3365 Jan, [facility] [place] [facility] [address] [id number] [place] [address]- 9586 Jan, [facility] [place] [facility] [address] [id number] [place] [address]- 4624 Jan, [facility] [place] [facility] [address] [id number] [place] [address]- 8637 Jan, [facility] [place] [facility] [address] [id number] [place] [address]- 9918 Nov, [facility] [place] [facility] [address] [id number] [place] [address]- 2888 Nov, [facility] [place] [facility] [address] [id number] [place] [address]- 9795 Nov, [facility] [place] [facility] [address] [id number] [place] [address]- 3362 Oct, [facility] [place] [facility] [address] [id number] [place] [address]- [address] Oct, [facility] [place] [facility] [address] [id number] [place] [address] Oct, [facility] [place] [facility] [address] [id number] [place] [address] Oct, [facility] [place] [facility] [address] [id number] [place] [address] Sep, [facility] [place] [facility] [address] [id number] [place] [address] Sep, [facility] [place] [facility] [address] [id number] [place] [address] Sep, [facility] [place] [facility] [address] [id number] [place] [address] 2011 Sep, [facility] [place] [facility] [address] [id number] [place] [address] Sep, [facility] [place] [facility] [address] [id number] [place] [address] Sep, [facility] [place] [facility] [address] [id number] [place] [address] August, [facility] [place] [facility] [address] [id number] [place] [address] August, [facility] [place] [facility] [address] [id number] [place] [address] Jul, [facility] [address] [id number] [place] [address] Jul, [facility] [place] [facility] [address] [id number] [place] [address] Jul, [facility] [address] [id number] [place] [address] Jul, [facility] [place] [facility] [address] [id number] [place] [address] Jul, [facility] [address] [id number] [place] [address] Jul, [facility] [address] [id number] [place] [address] Jul, [facility] [address] [id number] [place] [address] Jul, [facility] [address] [id number] [place] [address] Jul, [facility] [place] [facility] [address] [id number] [place] [address] Jul, [facility] [address] [id number] [place] [address] Jun, [facility] [place] [facility] [address] [id number] [place] [address] Jun, [facility] [place] [facility] [address] [id number] [place] [address] Jun, [facility] [place] [facility] [address] [id number] [place] [address] Jun, [facility] [place] [facility] [address] [id number] [place] [address] May, [facility] [place] [facility] [address] [id number] [place] [address] May, [facility] [place] [facility] [address] [id number] [place] [address] 12 May, 2013 [facility] [place] [facility] [address] [id number] [place] [address] 12 May, 2013 [facility] [place] [facility] [address] [id number] [place] [address] 10 May, 2013 [facility] [place] [facility] [address] [id number] [place] [address] 10 May, 2013 [facility] [place] [facility] [address] [id number] [place] [address] 16 Mar, 2013 [facility] [place] [facility] [address] [id number] [place] [address] Mar, [facility] [place] [facility] [address] [id number] [place] [address] Mar, [facility] [place] [facility] [address] [id number] [place] [address] Mar, [facility] [place] [facility] [address] [id number] [place] [address] Mar, [facility] [place] [facility] [address] [id number] [place] [address]990 16 Mar, 2013 [facility] [place] [facility] [address] [id number] [place] [address] Feb, [facility] [place] [facility] [address] [id number], [place] [address] Feb, [facility] [place] [facility] [address] [id number] [place] [address] Feb, [facility] [place] [facility] [address] [id number] [place] [address] 9769 Feb, [facility] [place] [facility] [address] [id number] [place] [address] 8721 Feb, [facility] [place] [facility] [address] [id number] [place] [address] 8939 12 Feb, 2012 [facility] [place] [facility] [address] [id number] [place] [address] 07 Feb, 2012 [facility] [place] [facility] [address] [id number] [place] [address] 07 Feb, 2012 [facility] [place] [facility] [address] [id number] [place] [address]609 18 Jan, 2012 [facility] [place] [facility] [address] [id number] [place] [address] 7782 18 Jan, 2012 [facility] [place] [facility] [address] [id number] [place] [address] 8529 17 Jan, 2012 [facility] [place] [facility] [address] [id number] [place] [address] 1858 16 Jan, 2012 [facility] [place] [facility] [address] [id number] [place] [address] 6825 16 Jan, 2012 [facility] [place] [facility] [address] [id number] [place] [address]- 1571 14 Jan, 2013 [facility] [place] [facility] [address] [id number] [place] [address]- 5285 14 Jan, 2012 [facility] [place] [facility] [address] [facility] [id number] [place] [address]- 1377 11 Jan, 2012 [facility] [place] [facility] [address] [id number] [place] [address] 4905 11 Jan, 2012 [facility] [place] [facility] [address] [id number] [place] [address] 1941 10 Jan, 2012 [facility] [place] [facility] [address] [id number] [place] [address] 27 Dec, 2012 [facility] [place] [facility] [address] [id number] [place] [address]99 18 Sep, 2012 [facility] [place] [facility] [address] [id number] [place] [address] Dec, [facility] [place] [facility] [address] [id number] [place] [address] 35[address] Nov, [facility] [place] [facility] [address] [id number] [place] [address] 4905 Nov, [facility] [place] [facility] [address] [id number] [place] [address] 6529 Nov, [facility] [place] [facility] [address] [id number] [place] [address] 2471 Nov, [facility] [place] [facility] [address] [id number] [place] [address]- 6468 Nov, [facility] [place] [facility] [address] [id number] [place] [address] 5314 Nov, [facility] [place] [facility] [address] [id number] [place] [address] 8245 Nov, [facility] [place] [facility] [address] [id number] [place] [address] 2565 Nov, [facility] [place] [facility] [address] [id number] [place] [address]- 6787 Nov, [facility] [place] [facility] [address] [id number] [place] [address]- 3234 Nov, [facility] [place] [facility] [address] [id number] [place] [address]894 Oct, [facility] [place] [facility] [address] [id number] [place] [address] 6621 Oct, [facility] [place] [facility] [address] [id number] [place] [address] 8996 Oct, [facility] [place] [facility] [address] [id number] [place] [address] 5[address] Oct, [facility] [place] [facility] [address] [id number] [place] [address] 9296 Oct, [facility] [place] [facility] [address] [id number] [place] [address]- 2546 Oct, [facility] [address] [id number] [place] [address]- 8175 Oct, [facility] [place] [facility] [address] [id number] [place] [address] 3716 Oct, [facility] [address] [id number] [place] [address]- 0129 Sep, [facility] [place] [facility] [address] [id number] [place] [address] 8380 Sep, [facility] [place] [facility] [address] [id number] [place] [address]- 1536 Sep, [facility] [address] [id number] [place] [address]- 2876 Sep, [facility] [address] [id number] [place] [address] 0256 August, [facility] [address] [id number] [place] [address]- 4856 August, [facility] [address] [id number] [place] [address]- 9329 August, [facility] [address] [id number] Jul, [facility] [address] [id number] Jul, [facility] [address] [id number] [place] [address] 0296 Jun, [facility] [place] [facility] [address] [id number] [place] [address] 8580 May, [facility] [place] [facility] [address] [id number] [place] [address] 2736 May, [facility] [place] [facility] [address] [id number] [place] [address]- 7136 Apr, [facility] [place] [facility] [address] [id number] [place] [address] 2566 Feb, [facility] [place] [facility] [address] [id number] [place] [address] 3936 Feb, [facility] [place] [facility] [address] [id number] [place] [address]- 9206 Jan, [facility] [place] [facility] [address] [id number] [place] [address]- 5936 Jan, [facility] [place] [facility] [address] [id number] [place] [address]- 3576 Jan, [facility] [place] [facility] [address] [id number] [place] [address]- 9444 Jan, [facility] [place] [facility] [address] [id number] [place] [address]- 9926 Jan, [facility] [place] [facility] [address] [id number] [place] [address] Dec, [facility] [place] [facility] [address] [id number] [place] [address]- 0146 Dec, [facility] [address] [id number] [id number] Nov, [facility] [place] [facility] [address] [id number] [place] [address]- 4886 Nov, [facility] [place] [facility] [address] [id number] [place] [address]- 8206 Nov, [facility] [place] [facility] [address] [id number], [place] [address]- 5516 Nov, [facility] [place] [facility] [address] [id number] [place] [address]- 6186 August, [facility] [place] [facility] [address] [id number] [place] [address]- 6316 August, [facility] [place] [facility] [address] [id number] [place] [address]- 6196 August, [facility] [place] [facility] [address] [id number], [place] [address] 1356 Jul, [facility] [id number] [address]253 May, [facility] [id number], [place] [address]686 May, [facility] [id number], [place] [address] 9696 May, [facility] [id number] [place] [address]- 2462 Mar, [facility] [id number] [place] [address]- 1657 Jan, [facility] [id number] [place] [address]- 1206 Jan, [facility] [id number] [place] [address]- 8152 Oct, [facility] [id number] [place] [address]- 9184 August, [facility] [id number] [place] [address]73- 7271 Jan, [facility] [id number] [address] 9930 Jan, [facility] [id number], [place] [address] Jan, [facility] [id number] [address] 7785 Jan, IMMUNIZATIONS No Known Immunizations SOCIAL HISTORY Never Assessed REASON FOR VISIT Controlled Med Refill 02/06/17 PLAN OF CARE VITAL SIGNS MEDICATIONS Medication [...]
--- OUTSIDE RECORDS SUMMARY | 2018-02-08 21:24 | XMS REPORT ---
Author Author ROSIO IRBY Organization [facility] Address [address] [place] [address] Care Team Providers Care Sandstone Splitter Name Role Phone ROSIO IRBY Unavailable PROBLEMS Type Condition ICD9-CM Code GUU24-KB Code Onset Dates Condition Status SNOMED Code Problem History of alcohol abuse Z87.898 Active 138186820 Problem Mood disorder F39 Active 50242585 Problem Generalized anxiety disorder F41.1 Active 31429073 Problem Hypertension, benign I10 Active 02874900 Problem Allergic rhinitis, unspecified allergic rhinitis type J30.9 Active 56382609 Problem Chronic hepatitis C without hepatic coma B18.2 Active 693694544 Problem Obsessive compulsive disorder F42 Active 849006346 Problem Hyperammonemia E72.20 Active 5179123 ALLERGIES No Known Allergies ENCOUNTERS Encounter Location Date Diagnosis [place] [id number] [place] [address] 61028- 8467 August, Chronic hepatitis C without hepatic coma B18.2 [place] [id number] [place] [address] 69420- 0952 16 Jul, 2017 Chronic hepatitis C without hepatic coma B18.2 [place] [id number] [place] [address] 43145- 1566 Jul, Generalized anxiety disorder F41.1 ; Mood disorder F39 and History of hepatitis C Z86.19 [facility] [id number] [place] [address] 28626- 1235 Jul, Chronic hepatitis C without hepatic coma B18.2 [facility] [id number] [place] [address] 88501- 6971 Jun, Chronic hepatitis C without hepatic coma B18.2 [place] [id number] [place] [address] 54058- 0324 Jun, [facility] [id number] [place] [address] 85691- 9259 May, Chronic hepatitis C without hepatic coma B18.2 [facility] [id number] [place] [address] 77578- 3694 May, Hypertension, benign I10 [facility] [id number] [place] [address] 22618- 6400 Apr, Chronic hepatitis C without hepatic coma B18.2 [facility] [id number] [place] [address] 30098- 0099 Apr, Hypertension, benign I10 [place] [id number] [place] [address] 39810- 8065 Mar, Chronic hepatitis C without hepatic coma B18.2 [place] [id number] [place] [address] 76631- 1219 Mar, Hypertension, benign I10 [facility] [id number] [place] [address] 18540- 7093 Mar, Hypertension, benign I10 ; Encounter for immunization Z23 and Strain of right Achilles tendon, initial encounter S86.011A [facility] [id number] [place] [address] 32288- 8752 Feb, Chronic hepatitis C without hepatic coma B18.2 [facility] [id number] [place] [address] 50764- 3572 Jan, Chronic hepatitis C without hepatic coma B18.2 [facility] [address] [place] [address] 66163 -0272 Jan, Toe pain, right M79.674 and Cellulitis of foot, right L03.115 [facility] [id number] [place] [address] 58817- 9333 Dec, Chronic hepatitis C without hepatic coma B18.2 [facility] [id number] [place] [address] 89458- 8382 Nov, Chronic hepatitis C without hepatic coma B18.2 and Eczema of both hands L30.9 [facility] [id number] [place] [address] 30477- 6019 Nov, [facility] [id number] [address]- 7490 Oct, [facility] [id number] [place] [address] 56797- 7204 Sep, [facility] [id number] [place] [address] 67593- 9870 August, [facility] [id number] [place] [address] 28226- 8392 August, [facility] [id number] [place] [address] 48503- 6108 Jul, [facility] [id number] [place] [address] 67604- 9423 Jul, [facility] [id number] [place] [address] 72793- 1911 Jun, [facility] [id number] [place] [address] 06033- 4432 Jun, [facility] [address] [address]- 5979 May, [facility] [address] [place] [address] 04601- 9144 Apr, Chronic hepatitis C without hepatic coma B18.2 ; Hyperglycemia R73.9 and Hypertension, benign I10 [facility] [id number] [place] [address] 17630- 7826 Apr, Chronic hepatitis C without hepatic coma B18.2 ; Mood disorder F39 ; Hypertension, benign I10 and Hyperglycemia R73.9 [facility] [address] [address]- 0800 Apr, [facility] [address] [address]- 0857 Apr, [facility] [id number] [place] [address] 82729- 9876 Apr, [facility] [address] [address]- 0349 Feb, [facility] [id number] [place] [address] 58368- 9893 Feb, [facility] [id number] [place] [address] 96133- 0219 Feb, [facility] [id number] [place] [address] 27041- 0483 Feb, [facility] [id number] [place] [address] 05827- 3361 Jan, [facility] [id number] [place] [address] 81715- 2396 Jan, Chronic hepatitis C without hepatic coma B18.2 ; Mood disorder F39 ; Encounter for immunization Z23 and Chronic viral hepatitis C B18.2 [facility] [id number] [place] [address] 68111- 0639 Jan, [facility] [address] [address]- 6075 Jan, [facility] [address] [address]- 9875 Dec, [facility] [address] [address]- 8697 Dec, [facility] [id number] [place] [address] 27090- 1196 Nov, [facility] [address] [address]- 9763 Nov, Weakness of both legs M62.81 [facility] [id number] [place] [address] 51680- 0125 Nov, [facility] [id number] [place] [address] 54572- 0598 Nov, [facility] [id number] [place] [address] 20129- 8369 Nov, [facility] [id number] [place] [address] 15579- 5361 Nov, Eczema, unspecified type L30.9 [facility] [id number] [place] [address] 49273- 8753 Nov, [facility] [id number] [place] [address] 05739- 2235 Nov, Eczema, unspecified type L30.9 ; Cessation of tobacco use in previous 12 months Z87.891 and Weakness of both legs M62.81 [facility] [id number] [place] [address] 87592- 4940 Oct, [facility] [id number] [place] [address] 58837- 3816 Oct, [facility] [id number] [place] [address] 91826- 7200 Oct, [facility] [id number] [place] [address] 34171- 9793 Oct, Chronic viral hepatitis C B18.2 [facility] [id number] [place] [address] 06478- 7878 Sep, [facility] [id number] [place] [address] 42234- 9839 Sep, 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 and Generalized anxiety disorder F41.1 [facility] [id number] [place] [address] 24504- 4270 Sep, [facility] [id number] [place] [address] 14843- 6514 August, [facility] [address] [address]- 8526 August, Hyperammonemia E72.20 [facility] [address] [place] [address] 2546 August, Hyperammonemia E72.20 [facility] [address] [place] [address] 2546 August, Hyperammonemia E72.20 and Chronic hepatitis C without hepatic coma B18.2 [facility] [address] [address] 2546 August, Chronic viral hepatitis C B18.2 [facility] [id number] [place] [address], [place] [address]- 7686 August, [facility] [address] [place] [address]- 6786 Jul, Chronic viral hepatitis C B18.2 and Hyperammonemia E72.20 [facility] [address] [address] 2546 Jul, Chronic viral hepatitis C B18.2 [facility] [address] [address] 2546 Jul, [facility] [id number] [place] [address] 2546 Jul, [facility] [address] [address] 2546 Jun, [facility] [address] [address] 2546 Jun, Chronic viral hepatitis C B18.2 and Hyperammonemia E72.20 [facility] [address] [place] [address] 2546 Jun, [facility] [address] [address]- 2546 Jun, [facility] [address] [address]- 0758 16 Jun, 2015 Chronic viral hepatitis C B18.2 [facility] [address] [address]- 9556 10 Jun, 2015 [facility] [address] [place] [address] 83038- 0089 07 Jun, 2015 Chronic viral hepatitis C B18.2 [facility] [id number] [place] [address] 20828- 6468 17 May, 2015 Hepatitis C, chronic B18.2 and Chronic viral hepatitis C B18.2 [facility] [id number] [place] [address] 40877- 7275 May, [facility] [address] [place] [address] 44318- 4783 Apr, [facility] [id number] [place] [address] 61852- 3318 Apr, Chronic viral hepatitis C B18.2 and Hyperammonemia E72.20 [facility] [id number] [place] [address] 81556- 3222 Apr, Chronic viral hepatitis C B18.2 [facility] [address] [address]- 8992 Apr, Hyperammonemia E72.20 [facility] [address] [place] [address] 90140- 9704 Apr, [facility] [address] [address]- 8147 Apr, [facility] [id number] [place] [address] 47073- 1437 Apr, Chronic hepatitis C without hepatic coma B18.2 ; Hyperammonemia E72.20 and Chronic viral hepatitis C B18.2 [facility] [address] [place] [address] 05071- 9996 Mar, Shortness of breath R06.02 [facility] [id number] [place] [address] 84825- 7915 Mar, Mood disorder F39 and Major depressive disorder, recurrent episode, unspecified 296.30 [facility] [id number] [place] [address] 95712- 9017 28 Mar, 2015 [facility] [address] 80614- 8826 Mar, [facility] [id number] [place] [address] 92323- 7879 15 Mar, 2015 [facility] [address] 77965 -0683 Mar, Seasonal allergies J30.2 ; Shortness of breath R06.02 and Cough R05 [facility] [address] 18225- 0466 Mar, Hyperammonemia E72.20 ; Mood disorder F39 and History of alcohol abuse Z87.898 [place] [address] 81793- 4298 Mar, Hyperammonemia E72.20 [facility] [id number] [place] [address] 80702- 7058 Mar, [facility] [id number] [place] [address] 63770- 1246 Feb, [facility] [id number] [place] [address] 93541- 2777 Feb, [facility] [id number] [place] [address] 56401- 0798 Feb, Hyperammonemia E72.20 [facility] [id number] [place] [address] 96953- 8283 Feb, [facility] [id number] [place] [address] 00671- 5538 Feb, [facility] [address] [address]- 4700 Feb, [facility] [id number] [place] [address] 55607- 3497 Feb, [facility] [id number] [place] [address] 18967- 7966 Feb, Chronic viral hepatitis C B18.2 [facility] [id number] [place] [address] 05328- 9740 Feb, Chronic viral hepatitis C B18.2 [facility] [id number] [place] [address] 32666- 8694 Feb, [facility] [id number] [place] [address] 80780- 3823 Feb, Chronic viral hepatitis C B18.2 and Confusion R41.0 [facility] [id number] [place] [address] 66028- 1419 Feb, [facility] [id number] [place] [address] 59491- 9844 Jan, [facility] [id number] [place] [address] 55610- 8658 Jan, Confusion R41.0 [facility] [id number] [place] [address] 72239- 8836 Jan, [facility] [id number] [place] [address] 07098- 2398 Jan, [facility] [address] [place] [address] 51005- 6340 Jan, [facility] [id number] [place] [address] 14273- 4604 Jan, [facility] [address] [place] [address] 71168- 2059 Jan, Chronic viral hepatitis C B18.2 and 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 [facility] [id number] [place] [address] 59599- 5840 Jan, [facility] [id number] [place] [address] 69064- 9006 Jan, [facility] [id number] [place] [address] 72534- 5059 Jan, [facility] [address] 01595- 2343 Jan, [facility] [id number] [place] [address] 37255- 2420 Jan, Chronic viral hepatitis C B18.2 [facility] [id number] [place] [address] 69707- 3621 Jan, [facility] [address] 18623- 4254 Jan, Back pain at L4-L5 level M54.5 and Confusion R41.0 [facility] [id number] [place] [address] 76023- 9353 Jan, [facility] [id number] [place] [address] 95342- 8548 Dec, Chronic viral hepatitis C B18.2 and Flu vaccine need V04.81 [facility] [id number] [place] [address] 36210- 3693 Dec, Chronic viral hepatitis C B18.2 [facility] [id number] [place] [address] 53043- 6972 Dec, [facility] [id number] [place] [address] 72381- 3188 Dec, Polyuria 788.42 [facility] [id number] [place] [address] 04421- 3326 Dec, Polyuria 788.42 ; Polydipsia 783.5 ; Dizziness 780.4 and Hepatitis C, chronic 070.54 [facility] [address] [address]- 3963 Dec, Major depressive disorder, recurrent episode, unspecified 296.30 and Generalized anxiety disorder 300.02 [facility] [address], [place] [address]- 8143 Nov, [facility] [id number] [place] [address] 72883- 0246 Nov, [facility] [address] [address]- 0675 Nov, [facility] [id number] [place] [address] 60752- 3269 Oct, [facility] [id number] [place] [address] 35823- 2656 Sep, [facility] [id number] [place] [address] 61045- 8382 August, Obsessive-compulsive disorders 300.3 ; Generalized anxiety disorder 300.02 and Major depressive disorder, recurrent episode, unspecified 296.30 [facility] [address] [place] [address] 52747- 1374 August, Chronic hepatitis C without mention of hepatic coma 070.54 ; Hypertension 401.9 and Seasonal allergies 477.9 [facility] [address] [address]- 5122 Jul, [facility] [address] [address]- 3471 Jul, [facility] [address] [address]- 6572 Jun, [facility] [address], [place] [address]- 0993 Jun, [facility] [address] [address]- 8875 May, [facility] [address] [facility] [id number] [place] [address]- 0170 May, [facility] [place] [facility] [address] [id number] [place] [address]- 0749 May, [facility] [place] [facility] [address] [id number] [place] [address]- 8716 May, [facility] [place] [facility] [address] [id number] [place] [address]- 5228 Apr, [facility] [place] [facility] [address] [id number] [place] [address]- 0174 Apr, [facility] [place] [facility] [address] [id number] [place] [address]- 8857 Apr, [facility] [place] [facility] [address] [id number] [place] [address]- 3132 Apr, [facility] [place] [facility] [address] [id number] [place] [address]- 3395 Apr, [facility] [place] [facility] [address] [id number] [place] [address]- 8642 Apr, [facility] [place] [facility] [address] [id number] [place] [address]- 5151 Mar, [facility] [place] [facility] [address] [id number] [place] [address]- 4081 Mar, [facility] [place] [facility] [address] [id number] [place] [address]- 1424 Mar, [facility] [place] [facility] [address] [id number] [place] [address]- 3949 24 Mar, 2014 [facility] [place] [facility] [address] [id number] [place] [address]- 7606 Mar, [facility] [place] [facility] [address] [id number] [place] [address]- 7866 17 Mar, 2014 [facility] [place] [facility] [address] [id number] [place] [address]- 1935 Mar, [facility] [place] [facility] [address] [id number] [place] [address]- 4034 Mar, [facility] [place] [facility] [address] [id number] [place] [address]- 6943 Mar, [facility] [place] [facility] [address] [id number] [place] [address]- 6356 Feb, [facility] [place] [facility] [address] [id number] [place] [address]- 5897 Feb, [facility] [place] [facility] [address] [id number] [place] 5475 Feb, [facility] [place] [facility] [address] [id number] [place] 7969 Feb, [facility] [place] [facility] [address] [id number] [place] [address]- 5789 Feb, [facility] [place] [facility] [address] [id number] [place] [address]- 3185 Jan, [facility] [place] [facility] [address] [id number] [place] [address]- 4131 Jan, [facility] [place] [facility] [address] [id number] [place] [address]- 4655 Jan, [facility] [place] [facility] [address] [id number] [address]- 3985 Jan, [facility] [place] [facility] [address] [id number] [address]- 8288 Jan, [facility] [place] [facility] [address] [id number] [place] [address]- 4878 Jan, [facility] [place] [facility] [address] [id number] [address]- 7701 Jan, [facility] [place] [facility] [address] [id number] [place] [address]- 7993 Jan, [facility] [place] [facility] [address] [id number] [place] [address]- 3332 Jan, [facility] [place] [facility] [address] [id number] [place] [address]- 8813 Nov, [facility] [place] [facility] [address] [id number] [place] [address]- 4198 Nov, [facility] [place] [facility] [address] [id number] [place] [address]- 5727 Nov, [facility] [place] [facility] [address] [id number] [place] [address]- 3116 Oct, [facility] [place] [facility] [address] [id number] [place] [address]- 5418 Oct, [facility] [place] [facility] [address] [id number] [place] [address]- 2982 Oct, [facility] [place] [facility] [address] [id number] [place] [address]- 6593 Oct, [facility] [place] [facility] [address] [id number] [place] [address]- 8814 Sep, [facility] [place] [facility] [address] [id number] [place] [address]- 5044 Sep, [facility] [place] [facility] [address] [id number] [place] [address]- 9346 Sep, [facility] [place] [facility] [address] [id number] [place] [address]- 5736 Sep, [facility] [place] [facility] [address] [id number] [place] [address]- 9507 Sep, [facility] [place] [facility] [address] [id number] [place] [address]- 4420 Sep, [facility] [place] [facility] [address] [id number] [place] [address]- 1484 August, [facility] [place] [facility] [address] [id number] [place] [address]- 0553 August, [facility] [place] [facility] [address] [id number] [place] [address] Jul, [facility] [place] [facility] [address] [id number] [place] [address] Jul, [facility] [place] [facility] [address] [id number] [place] [address] Jul, [facility] [place] [facility] [address] [id number] [place] [address] Jul, [facility] [address] [id number] [place] [address] Jul, [facility] [place] [facility] [address] [id number] [place] [address] Jul, [facility] [place] [facility] [address] [id number] [place] [address] Jul, [facility] [place] [facility] [address] [id number] [place] [address] Jul, [facility] [place] [facility] [address] [id number] [place] [address] Jul, [facility] [place] [facility] [address] [id number] [place] [address] Jul, [facility] [place] [facility] [address] [id number] [place] [address] Jun, [facility] [place] [facility] [address] [id number] [place] [address] Jun, [facility] [place] [facility] [address] [id number] [place] [address] Jun, [facility] [place] [facility] [address] [id number] [place] [address] Jun, [facility] [place] [facility] [address] [id number] [place] [address] [address] May, [facility] [place] [facility] [address] [id number] [place] [address] May, 2013 [facility] [address] [id number] [place] [address] 12 May, 2013 [facility] [place] [facility] [address] [id number] [place] [address] 12 May, 2013 [facility] [place] [facility] [address] [id number] [place] [address] 10 May, 2013 [facility] [place] [facility] [address] [id number] [place] [address] 10 May, 2013 [facility] [address] [id number] [place] [address] 16 Mar, 2013 [facility] [place] [facility] [address] [id number] [place] [address] 16 Mar, 2013 [facility] [address] [id number] [place] [address] 16 Mar, 2013 [facility] [place] [facility] [address] [id number] [place] [address] 16 Mar, 2013 [facility] [place] [facility] [address] [id number] [place] [address] Mar, [facility] [place] [facility] [address] [id number] [place] [address] 16 Mar, 2013 [facility] [place] [facility] [address] [id number] [place] [address] Feb, [facility] [place] [facility] [address] [id number] [place] [address] Feb, [facility] [place] [facility] [address] [id number] [place] [address] Feb, [facility] [place] [facility] [address] [id number] [place] [address] Feb, [facility] [place] [facility] [address] [id number] [place] [address] Feb, [facility] [place] [facility] [address] [id number] [place] [address] 12 Feb, 2013 [facility] [place] [facility] [address] [id number] [place] [address] 07 Feb, 2013 [facility] [place] [facility] [address] [id number] [place] [address] 07 Feb, 2013 [facility] [place] [facility] [address] [id number] [place] [address] 18 Jan, 2013 [facility] [place] [facility] [address] [id number] [place] [address] 18 Jan, 2013 [facility] [place] [facility] [address] [id number] [place] [address] 17 Jan, 2013 [facility] [place] [facility] [address] [id number] [place] [address] 16 Jan, 2013 [facility] [place] [facility] [address] [id number] [place] [address] 16 Jan, 2013 [facility] [place] [facility] [address] [id number] [place] [address] 14 Jan, 2013 [facility] [place] [facility] [address] [id number] [place] [address] 14 Jan, 2013 [facility] [place] [facility] [address] [id number] [place] [address] 11 Jan, 2013 [facility] [place] [facility] [address] [id number] [place] [address] 11 Jan, 2013 [facility] [place] [facility] [address] [id number] [place] [address]26 10 Jan, 2013 [facility] [place] [facility] [address] [id number] [place] [address] 27 Dec, 2012 [facility] [place] [facility] [address] [id number] [place] [address] 18 Dec, 2012 [facility] [place] [facility] [address] [id number] [place] [address] Dec, [facility] [place] [facility] [address] [id number] [place] [address] Nov, [facility] [place] [facility] [address] [id number] [place] [address] 8579 Nov, [facility] [place] [facility] [address] [id number] [place] [address] Nov, [facility] [place] [facility] [address] [id number] [place] [address] Nov, [facility] [place] [facility] [address] [id number] [place] [address] Nov, [facility] [place] [facility] [address] [id number] [place] [address] Nov, [facility] [place] [facility] [address] [id number] [place] [address] Nov, [facility] [place] [facility] [address] [id number] [place] [address] Nov, [facility] [place] [facility] [address] [id number] [place] [address] Nov, [facility] [place] [facility] [address] [id number] [place] [address] Nov, [facility] [place] [facility] [address] [id number] [place] [address] 2815 Oct, [facility] [place] [facility] [address] [id number] [place] [address] 0914 Oct, [facility] [place] [facility] [address] [id number] [place] [address] 3748 Oct, [facility] [place] [facility] [address] [id number] [place] [address] 2510 Oct, [facility] [place] [facility] [address] [id number] [place] [address] Oct, [facility] [place] [facility] [address] [id number] [place] [address] Oct, [facility] [address] [id number] [place] [address]606 Oct, [facility] [address] [id number] [place] [address] Oct, [facility] [address] [id number] [place] [address] 78[address] Sep, [facility] [address] [id number] [place] [address] 117[address] Sep, [facility] [address] [id number] [place] [address]97 Sep, [facility] [address] [id number] [place] [address]98 Sep, [facility] [address] [id number] [place] [address] August, [facility] [address] [id number] [place] [address] August, [facility] [address] [id number] [place] [address] August, [facility] [address] [facility] [id number] Jul, [facility] [address] [facility] [id number] Jul, [facility] [address] [id number] [place] [address]66 Jun, [facility] [address] [id number] [place] [address] May, [facility] [address] [id number] [place] [address] May, [facility] [place] [facility] [address] [id number] [place] [address] Apr, [facility] [address] [id number] [address] Feb, [facility] [place] [facility] [address] [id number] [place] [address] Feb, [facility] [place] [facility] [address] [id number] [place] [address] Jan, [facility] [place] [facility] [address] [id number] [place] [address]46 Jan, [facility] [place] [facility] [address] [id number] [place] [address] 2546 Jan, [facility] [place] [facility] [address] [id number] [place] [address] Jan, [facility] [place] [facility] [address] [id number] [place] [address] 2546 Jan, [facility] [place] [facility] [address] [id number] [place] [address] Dec, [facility] [place] [facility] [address] [id number] [place] [address] Dec, [facility] [address] [id number] [id number] Nov, [facility] [place] [facility] [address] [id number] [place] [address] Nov, [facility] [place] [facility] [address] [id number][place] [address] Nov, [facility] [place] [facility] [address] [id number] [address] 2546 Nov, [facility] [place] [facility] [address] [id number] [place] [address] August, [facility] [place] [facility] [address] [id number] [place] [address] 9[address] August, [facility] [place] [facility] [address] [id number] [place] [address]46 August, [facility] [place] [facility] [id number] [address] Jul, [facility] [id number] [address] May, [facility] [id number] [address] May, [facility] [id number] [address] May, [facility] [id number] [address] Mar, [facility] [id number] [place] [address] Jan, [facility] [id number] [address] Jan, [facility] [id number] [address] Oct, [facility] [id number] [address] August, [facility] [id number] [address] Jan, [facility] [id number] [address] Jan, [facility] [id number] [address] Jan, [facility] [address] [id number] [address] Jan, IMMUNIZATIONS Vaccine Route Administration Date Status FLUARIX QUAD (3 AND UP) 2017 IM Intramuscular Mar 13, 2017 Administered SOCIAL HISTORY Never Assessed REASON FOR VISIT lightheaded for a week to two weeks and PT says no other symptoms-Kitty ARMENDARIZ PLAN OF CARE VITAL SIGNS Height 72 in 2017-03-13 Weight 256 lbs 2017-03-13 Temperature 98.7 degrees Fahrenheit 2017-03-13 Heart Rate 68 bpm 2017-03-13 Respiratory Rate 18 2017-03-13 BMI 34.72 kg/m2 2017-03-13 Blood pressure systolic 152 mmHg 2017-03-13 Blood pressure diastolic 100 mmHg 2017-03-13 MEDICATIONS Medication Instructions Dosage Frequency Start Date End Date Duration Status Xifaxan 200 MG Orally 3 times a day 2 tablets 8h Not-Taking Mirtazapine 15 MG TAKE 1 TABLET AT BEDTIME 90 Active Aspirin 81 MG Orally Once a day 1 tablet 24h 12 May, 2012 Active Centrum Adults Active Gabapentin 600 MG TAKE 1/2 TABLET EVERY MORNING AND AFTERNOON AND TAKE 1 TABLET AT BEDTIME Active Ketoconazole 2 % Externally no more than twice a day 1 application to affected area Nov, Active Lisinopril-Hydrochlorothiazide 20-25 MG Orally Once a day 1 tablet 24h Mar, 30 day(s) Active Albuterol Sulfate HFA 108 (90 Base) MCG/ACT Inhalation every 4 hrs 2 puffs as needed 4h Mar, Active Dandelion Root 520 MG Active Claritin 10 mg Orally Once a day 1 tablet 24h August, 90 Active Propranolol HCl 40 MG TAKE 1 TABLET THREE TIMES DAILY 90 Active Triamcinolone Acetonide 0.1 % Externally Twice a day 1 application to affected area 12h Nov, Active Tramadol HCl 50 mg Orally every 6 hrs 1 tablet as needed 6h Mar, Active Xanax 2 MG Orally 4 times a day 1 tablet 6h Jun, 28 days Active Potassium Chloride ER 10 MEQ TAKE 1 CAPSULE EVERY DAY 90 Active RESULTS No Results PROCEDURES Procedure Date Ordered Result Body Site [facility] VISIT ESTABLISHED PATIENT Mar 13, 2017 SINGLE IMMUNIZATION ADMIN Mar 13, 2017 FLUARIX QUAD (3 AND UP) 2016Mar 13, 2017 INSTRUCTIONS MEDICATIONS ADMINISTERED No Known [...]
--- OUTSIDE RECORDS SUMMARY | 2018-02-08 21:25 | XMS REPORT ---
Author Author ROSIO IRBY Organization [facility] Address [address] [place] [address] Care Team Providers Care Life Enrichment Director Name Role Phone ROSIO IRBY Unavailable PROBLEMS Type Condition ICD9-CM Code [id number] Code Onset Dates Condition Status SNOMED Code Problem Mood disorder F39 Active 65962632 Problem Hypertension, benign I10 Active 84446712 Problem Obsessive compulsive disorder F42 Active 943140901 Problem Chronic hepatitis C without hepatic coma B18.2 Active 229654494 Problem History of alcohol abuse Z87.898 Active 222996875 Problem Hyperammonemia E72.20 Active 0067747 Problem Allergic rhinitis, unspecified allergic rhinitis type J30.9 Active 60411025 ALLERGIES No Information ENCOUNTERS Encounter Location Date Diagnosis [facility] [id number] [place] [address] 69403- 6647 Jul, [facility] [address] 76126- 7186 Jul, Chronic hepatitis C without hepatic coma B18.2 [facility] [id number] [place] [address] 13315- 2640 Jun, Chronic hepatitis C without hepatic coma B18.2 [facility] [id number] [place] [address] 59099- 4140 Jun, [facility] [id number] [place] [address] 13133- 0209 May, Chronic hepatitis C without hepatic coma B18.2 [facility] [id number] [place] [address] 92296- 6186 May, Hypertension, benign I10 [facility] [id number] [place] [address] 01479- 7900 Apr, Chronic hepatitis C without hepatic coma B18.2 [facility] [id number] [place] [address] 32826- 3243 Apr, Hypertension, benign I10 [facility] [id number] [place] [address] 27170- 3006 Mar, Chronic hepatitis C without hepatic coma B18.2 [facility] [address] 62214- 0878 Mar, Hypertension, benign I10 [place] [address] 13467- 9736 Mar, Hypertension, benign I10 ; Encounter for immunization Z23 and Strain of right Achilles tendon, initial encounter S86.011A [place] [id number] [place] [address] 10369- 9989 Feb, Chronic hepatitis C without hepatic coma B18.2 [place] [address] 65530- 0794 Jan, Chronic hepatitis C without hepatic coma B18.2 [facility] [address] 46604 -4039 Jan, Toe pain, right M79.674 and Cellulitis of foot, right L03.115 [facility] [id number] [place] [address] 86644- 1563 Dec, Chronic hepatitis C without hepatic coma B18.2 [facility] [id number] [place] [address] 38768- 5262 Nov, Chronic hepatitis C without hepatic coma B18.2 and Eczema of both hands L30.9 [place] [address] 40880- 5313 Nov, [facility] [id number] [place] [address] 72960- 7759 Oct, [facility] [address] 53894- 5174 Sep, [facility] [id number] [place] [address]- 5751 August, [facility] [address] [address] 22[address] August, [facility] [id number] [place] [address]- 2229 Jul, [facility] [address] 8907 Jul, [facility] [address], [place] [address]- 7734 Jun, [facility] [address] 0196 Jun, [facility] [address], [place] [address]- 8652 May, [facility] [address], [place] [address]- 8909 Apr, Chronic hepatitis C without hepatic coma B18.2 ; Hyperglycemia R73.9 and Hypertension, benign I10 [facility] [address], [place] [address]- 4683 Apr, Chronic hepatitis C without hepatic coma B18.2 ; Mood disorder F39 ; Hypertension, benign I10 and Hyperglycemia R73.9 [facility] [address], [place] [address]- 8009 Apr, [facility] [address], [place] [address]- 9675 Apr, [facility] [address], [place] [address]- 7531 Apr, [facility] [address], [place] [address]- 8878 Feb, [facility] [address], [place] [address]- 3257 Feb, [facility] [id number] [place] [address] 92389- 0840 Feb, [facility] [id number] [place] [address] 80138- 5611 Feb, [facility] [id number] [place] [address] 55113- 6234 Jan, [facility] [address] 07795- 7614 Jan, Chronic hepatitis C without hepatic coma B18.2 ; Mood disorder F39 ; Encounter for immunization Z23 and Chronic viral hepatitis C B18.2 [facility] [id number] [place] [address] 02173- 8774 Jan, [facility] [id number] [place] [address] 27526- 7372 Jan, [facility] [id number] [place] [address] 08422- 0486 Dec, [facility] [id number] [place] [address] 99486- 1096 Dec, [facility] [id number] [place] [address] 46989- 2697 Nov, [facility] [id number] [place] [address] 78672- 5704 Nov, Weakness of both legs M62.81 [facility] [id number] [place] [address] 09003- 1606 Nov, [facility] [id number] [place] [address] 25880- 8938 Nov, [facility] [id number] [place] [address] 32532- 0238 Nov, [facility] [id number] [place] [address] 60521- 7284 Nov, Eczema, unspecified type L30.9 [facility] [address], [place] [address]- 2544 Nov, [facility] [id number] [place] [address] 83374- 8690 Nov, Eczema, unspecified type L30.9 ; Cessation of tobacco use in previous 12 months Z87.891 and Weakness of both legs M62.81 [facility] [id number] [place] [address] 52906- 3725 Oct, [facility] [id number] [place] [address] 21870- 5995 Oct, [facility] [id number] [place] [address] 72843- 6832 Oct, [place] [id number] [place] [address] 74246- 4127 Oct, Chronic viral hepatitis C B18.2 [place] [id number] [place] [address] 74154- 9496 Sep, [place] [id number] [place] [address] 66568- 0455 Sep, 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 and Generalized anxiety disorder F41.1 [place] [id number] [place] [address] 81385- 5775 Sep, [facility] [id number] [place] [address] 28337- 0363 August, [facility] [id number] [place] [address] 88129- 2914 August, Hyperammonemia E72.20 [place] [id number] [place] [address] 99585- 4950 August, Hyperammonemia E72.20 [place] [address], [place] [address]- 4639 August, Hyperammonemia E72.20 and Chronic hepatitis C without hepatic coma B18.2 [facility] [id number] [place] [address] 2546 August, Chronic viral hepatitis C B18.2 [facility] [id number] [place] [address] 2546 August, [facility] [id number] [place] [address] 2546 Jul, Chronic viral hepatitis C B18.2 and Hyperammonemia E72.20 [facility] [id number] [place] [address] 2546 Jul, Chronic viral hepatitis C B18.2 [facility] [id number] [place] [address] 2546 Jul, [facility] [address], [place] [address] 2546 Jul, [facility] [address], [place] [address] 2546 28 Jun, 2015 [facility] [id number], [place] [address] 2546 23 Jun, 2015 Chronic viral hepatitis C B18.2 and Hyperammonemia E72.20 [facility] [address], [place] [address] 2546 Jun, [facility] [address], [place] [address] 2546 18 Jun, 2015 [facility] [id number] [address] 2546 16 Jun, 2015 Chronic viral hepatitis C B18.2 [facility] [id number] [place] [address] 2546 10 Jun, 2015 [facility] [id number], [place] [address] 2546 07 Jun, 2015 Chronic viral hepatitis C B18.2 [facility] [id number] [place] [address] 02449- 8487 17 May, 2015 Hepatitis C, chronic B18.2 and Chronic viral hepatitis C B18.2 [facility] [id number] [place] [address] 43896- 1023 15 May, 2015 [facility] [id number] [place] [address] 90200- 3881 Apr, [facility] [id number] [place] [address] 63866- 6878 Apr, Chronic viral hepatitis C B18.2 and Hyperammonemia E72.20 [facility] [id number] [place] [address] 01314- 5745 Apr, Chronic viral hepatitis C B18.2 [facility] [id number] [place] [address] 44303- 1911 Apr, Hyperammonemia E72.20 [facility] [id number] [place] [address] 58349- 9010 Apr, [facility] [id number] [place] [address] 37617- 1417 Apr, [facility] [id number] [place] [address] 70986- 8327 Apr, Chronic hepatitis C without hepatic coma B18.2 ; Hyperammonemia E72.20 and Chronic viral hepatitis C B18.2 [place] [id number] [place] [address] 49972- 4923 Mar, Shortness of breath R06.02 [facility] [id number] [place] [address] 56992- 0842 Mar, Mood disorder F39 and Major depressive disorder, recurrent episode, unspecified 296.30 [facility] [id number] [place] [address] 12028- 6578 Mar, [facility] [id number] [place] [address] 76344- 4805 Mar, [facility] [id number] [place] [address] 60403- 4814 Mar, [facility] [id number] [place] [address] 41599 -5513 Mar, Seasonal allergies J30.2 ; Shortness of breath R06.02 and Cough R05 [facility] [address] 26131- 8357 Mar, Hyperammonemia E72.20 ; Mood disorder F39 and History of alcohol abuse Z87.898 [facility] [address] 73336- 7749 Mar, Hyperammonemia E72.20 [facility] [address] 89372- 8127 Mar, [facility] [address] 07332- 4679 Feb, [facility] [id number] [place] [address] 17549- 8573 Feb, [facility] [address] 72016- 2412 Feb, Hyperammonemia E72.20 [facility] [id number] [place] [address] 14071- 7551 Feb, [facility] [id number] [place] [address] 52570- 4000 Feb, [facility] [id number] [place] [address] 93806- 4599 Feb, [facility] [address] 75406- 4908 Feb, [facility] [id number] [place] [address] 91117- 0404 Feb, Chronic viral hepatitis C B18.2 [facility] [id number] [address]- 7108 Feb, Chronic viral hepatitis C B18.2 [facility] [id number] [place] [address] 68585- 5186 Feb, [facility] [id number] [place] [address] 95559- 4212 Feb, Chronic viral hepatitis C B18.2 and Confusion R41.0 [facility] [id number] [place] [address] 73828- 8678 Feb, [facility] [id number] [place] [address] 03676- 2542 Jan, [facility] [id number] [place] [address] 41296- 5607 Jan, Confusion R41.0 [facility] [id number] [place] [address] 30454- 6868 Jan, [facility] [id number] [place] [address] 52155- 1147 Jan, [facility] [id number] [place] [address] 02197- 3285 Jan, [facility] [id number] [place] [address] 74316- 2513 Jan, [facility] [id number] [place] [address] 59492- 1105 Jan, Chronic viral hepatitis C B18.2 and 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 [facility] [id number] [address]- 5845 Jan, [facility] [id number] [place] [address] 97311- 2540 Jan, [facility] [address], [place] [address]- 7837 Jan, [facility] [id number] [place] [address] 75869- 6126 Jan, [facility] [id number] [place] [address] 55651- 3783 Jan, Chronic viral hepatitis C B18.2 [facility] [address] 20545- 4957 16 Jan, 2015 [facility] [address] 99859- 1119 14 Jan, 2015 Back pain at L4-L5 level M54.5 and Confusion R41.0 [facility] [address] 66988- 2183 Jan, [facility] [address] 85835- 8382 30 Dec, 2014 Chronic viral hepatitis C B18.2 and Flu vaccine need V04.81 [facility] [address] 22345- 9155 30 Dec, 2014 Chronic viral hepatitis C B18.2 [place] [id number] [place] [address] 73700- 6691 28 Dec, 2014 [facility] [address] 89243- 3706 22 Dec, 2014 Polyuria 788.42 [place] [address] 51633- 7984 Dec, Polyuria 788.42 ; Polydipsia 783.5 ; Dizziness 780.4 and Hepatitis C, chronic 070.54 [facility] [id number] [place] [address] 66497- 7123 10 Dec, 2014 Major depressive disorder, recurrent episode, unspecified 296.30 and Generalized anxiety disorder 300.02 [facility] [id number] [place] [address] 50789- 1199 Nov, [facility] [address] 48639- 3123 Nov, [facility] [address], [place] [address]- 9846 Nov, [facility] [id number] [place] [address] 87236- 7756 Oct, [facility] [address], [place] [address]- 8186 Sep, [facility] [id number] [place] [address] 31267- 0026 August, Obsessive-compulsive disorders 300.3 ; Generalized anxiety disorder 300.02 and Major depressive disorder, recurrent episode, unspecified 296.30 [facility] [id number] [place] [address] 98952- 6826 August, Chronic hepatitis C without mention of hepatic coma 070.54 ; Hypertension 401.9 and Seasonal allergies 477.9 [facility] [id number] [place] [address] 15503- 3236 Jul, [facility] [address], [place] [address]- 7176 Jul, [facility] [id number] [place] [address] 09866- 2666 Jun, [facility] [address], [place] [address]- 6976 Jun, [facility] [id number], [place] [address]- 2546 May, [facility] [address], [place] [address]- 2546 May, [facility] [address], [place] [address]- 2546 May, [facility] [address], [place] [address]- 2546 May, [facility] [id number] [place] [address] 92771- 0727 Apr, [facility] [place] [facility] [address] [id number] [place] [address]- 4217 Apr, [facility] [place] [facility] [address] [id number] [place] [address]- 5375 Apr, [facility] [place] [facility] [address] [id number] [place] [address]- 4969 Apr, [facility] [place] [facility] [address] [id number] [place] [address]- 6046 Apr, [facility] [place] [facility] [address] [id number] [place] [address]- 0905 Apr, [facility] [place] [facility] [address] [id number] [place] [address]- 3319 Mar, [facility] [place] [facility] [address] [id number] [place] [address]- 9748 Mar, [facility] [place] [facility] [address] [id number] [place] [address]- 2978 Mar, [facility] [place] [facility] [address] [id number] [place] [address]- 3957 Mar, [facility] [place] [facility] [address] [id number] [place] [address]- 0345 Mar, [facility] [place] [facility] [address] [id number] [place] [address]- 2661 Mar, [facility] [place] [facility] [address] [id number] [place] [address]- 3647 Mar, [facility] [place] [facility] [address] [id number] [place] 8438 Mar, [facility] [place] [facility] [address] [id number] [place] [address]- 0769 Mar, [facility] [place] [facility] [address] [id number] [place] [address]- 8870 Feb, [facility] [place] [facility] [address] [id number] [place] [address]- 6562 Feb, [facility] [place] [facility] [address] [id number] [place] [address]- 1664 Feb, [facility] [place] [facility] [address] [id number] [place] [address]- 6442 Feb, [facility] [place] [facility] [address] [id number] [place] [address]- 1272 Feb, [facility] [place] [facility] [address] [id number] [place] [address]- 1290 Jan, [facility] [place] [facility] [address] [id number] [place] [address]- 7675 Jan, [facility] [place] [facility] [address] [id number] [place] [address]- 1101 Jan, [facility] [place] [facility] [address] [id number] [place] [address]- 8303 Jan, [facility] [place] [facility] [address] [id number] [place] [address]- 7166 Jan, [facility] [place] [facility] [address] [id number] [place] [address]- 4661 Jan, [facility] [place] [facility] [address] [id number] [place] [address]- 3657 Jan, [facility] [place] [facility] [address] [id number] [place] [address]- 8451 Jan, [facility] [place] [facility] [address] [id number] [place] [address] Jan, [facility] [place] [facility] [address] [id number] [place] [address] Nov, [facility] [place] [facility] [address] [id number] [place] [address] Nov, [facility] [place] [facility] [address] [id number] [place] [address] Nov, [facility] [place] [facility] [address] [id number] [place] [address] Oct, [facility] [place] [facility] [address] [id number] [place] [address] Oct, [facility] [place] [facility] [address] [id number] [place] [address] Oct, [facility] [place] [facility] [address] [id number] [place] [address] Oct, [facility] [place] [facility] [address] [id number] [place] [address] Sep, [facility] [place] [facility] [address] [id number] [place] [address] Sep, [facility] [place] [facility] [address] [id number] [place] [address] Sep, [facility] [place] [facility] [address] [id number] [place] [address] Sep, [facility] [place] [facility] [address] [id number] [place] [address] Sep, [facility] [place] [facility] [address] [id number] [place] [address] Sep, [facility] [place] [facility] [address] [id number] [place] [address] August, [facility] [place] [facility] [address] [id number] [place] [address] August, [facility] [place] [facility] [address] [id number] [place] [address] Jul, [facility] [place] [facility] [address] [id number] [place] [address] Jul, [facility] [place] [facility] [address] [id number] [place] [address] Jul, [facility] [place] [facility] [address] [id number] [place] [address] Jul, [facility] [place] [facility] [address] [id number] [place] [address] Jul, [facility] [place] [facility] [address] [id number] [place] [address] Jul, [facility] [place] [facility] [address] [facility] [id number] [place] [address] Jul, [facility] [place] [facility] [address] [id number] [place] [address]- [address] Jul, [facility] [place] [facility] [address] [id number] [place] [address]- [address] Jul, [facility] [place] [facility] [address] [id number] [place] [address] Jul, [facility] [place] [facility] [address] [id number] [place] [address] Jun, [facility] [place] [facility] [address] [id number] [place] [address] Jun, [facility] [place] [facility] [address] [id number] [place] [address] Jun, [facility] [place] [facility] [address] [id number] [place] [address] Jun, [facility] [place] [facility] [address] [id number] [place] [address] May, [facility] [place] [facility] [address] [id number] [place] [address] May, [facility] [place] [facility] [address] [id number] [place] [address] May, [facility] [place] [facility] [address] [id number] [place] [address] May, [facility] [place] [facility] [address] [id number] [place] [address] May, [facility] [place] [facility] [address] [id number] [place] [address] 10 May, 2013 [facility] [place] [facility] [address] [id number] [place] [address]69 16 Mar, 2013 [facility] [place] [facility] [address] [id number] [place] [address] 16 Mar, 2013 [facility] [place] [facility] [address] [id number] [place] [address] 4687 16 Mar, 2013 [facility] [place] [facility] [address] [id number] [place] [address] 2000 16 Mar, 2013 [facility] [place] [facility] [address] [id number] [place] [address]68 Mar, [facility] [place] [facility] [address] [id number] [place] [address] 8[address] Mar, [facility] [place] [facility] [address] [id number] [place] [address] 8599 Feb, [facility] [place] [facility] [address] [id number] [place] [address] Feb, [facility] [place] [facility] [address] [id number] [place] [address] 9770 Feb, [facility] [place] [facility] [address] [id number] [place] [address] Feb, [facility] [place] [facility] [address] [id number] [place] [address]270 Feb, [facility] [place] [facility] [address] [id number] [place] [address] 1474 Feb, [facility] [place] [facility] [address] [id number] [place] [address] 6731 07 Feb, 2013 [facility] [place] [facility] [address] [id number] [place] [address] 7565 07 Feb, 2013 [facility] [place] [facility] [address] [id number] [place] [address] 4630 18 Jan, 2012 [facility] [place] [facility] [address] [id number] [place] [address]- 9498 18 Jan, 2012 [facility] [place] [facility] [address] [id number] [place] [address] 5198 17 Jan, 2012 [facility] [place] [facility] [address] [id number] [place] [address] 9859 16 Jan, 2012 [facility] [place] [facility] [address] [id number] [place] [address]- 6955 16 Jan, 2012 [facility] [place] [facility] [address] [id number] [place] [address]- 0483 14 Jan, 2013 [facility] [place] [facility] [address] [id number] [place] [address]- 3914 14 Jan, 2012 [facility] [place] [facility] [address] [id number] [place] [address]- 8394 11 Jan, 2013 [facility] [place] [facility] [address] [id number], [place] [address] 11 Jan, 2013 [facility] [place] [facility] [address] [id number] [place] [address]- 6788 10 Jan, 2013 [facility] [place] [facility] [address] [id number] [place] [address]- 9643 27 Dec, 2012 [facility] [place] [facility] [address] [id number], [place] [address]8 18 Dec, 2012 [facility] [place] [facility] [address] [id number], [place] [address] 58[address] 18 Dec, 2012 [facility] [place] [facility] [address] [id number] [place] [address]- 7071 30 Nov, 2012 [facility] [place] [facility] [address] [id number], [place] [address] 97[address] 29 Nov, 2012 [facility] [place] [facility] [address] [id number] [place] [address]406 Nov, [facility] [place] [facility] [address] [id number] [place] [address] 3536 Nov, [facility] [place] [facility] [address] [id number] [place] [address] 8690 Nov, [facility] [place] [facility] [address] [id number] [place] [address] 1436 Nov, [facility] [place] [facility] [address] [id number] [place] [address] 0268 Nov, [facility] [place] [facility] [address] [id number] [place] [address] 5310 Nov, [facility] [place] [facility] [address] [id number] [place] [address] 8367 Nov, [facility] [place] [facility] [address] [id number] [place] [address] 6925 Nov, [facility] [place] [facility] [address] [id number] [place] [address] 6914 Oct, [facility] [place] [facility] [address] [id number] [place] [address] 3[address] Oct, [facility] [place] [facility] [address] [id number] [place] [address] 7679 Oct, [facility] [place] [facility] [address] [id number] [place] [address]- 9604 Oct, [facility] [place] [facility] [address] [id number] [place] [address]- 0990 Oct, [facility] [place] [facility] [address] [id number] [place] [address] 6531 Oct, [facility] [place] [facility] [address] [id number] [place] [address]- 6734 Oct, [facility] [place] [facility] [address] [id number] [place] [address] Oct, [facility] [place] [facility] [address] [id number] [place] [address] 8851 Sep, [facility] [place] [facility] [address] [id number] [place] [address] 0766 Sep, [facility] [address] [id number] [place] [address] 2987 Sep, [facility] [address] [id number] [place] [address] Sep, [facility] [address] [id number] [place] [address] 2947 August, [facility] [address] [id number] [place] [address] 9391 August, [facility] [address] [id number] [place] [address] 1238 August, [facility] [address] [place] [id number] Jul, [facility] [address] [facility] [id number] Jul, [facility] [address] [id number] [place] [address] 2958 Jun, [facility] [address] [id number] [place] [address] 9728 May, [facility] [address] [id number] [place] [address] 8258 May, [facility] [address] [id number] [place] [address] 2098 Apr, [facility] [address] [id number] [place] [address] 8824 Feb, [facility] [place] [facility] [address] [id number] [place] [address] 4453 Feb, [facility] [place] [facility] [address] [id number] [place] [address] 0671 Jan, [facility] [place] [facility] [address] [id number] [place] [address]- 0584 Jan, [facility] [place] [facility] [address] [id number] [place] [address]- 5716 Jan, [facility] [address] [id number] [place] [address]- 5236 Jan, [facility] [address] [facility] [id number] [place] [address]- 2546 Jan, [facility] [address] [id number] [place] [address]- 6926 Dec, [facility] [address] [facility] [id number] [place] [address]- 2156 Dec, [facility] [address] [facility] [id number] [id number] Nov, [facility] [address] [id number] [place] [address]- [address]446 Nov, [facility] [address] [id number] [place] [address]- 2253 Nov, [facility] [address] [id number] [place] [address]- 2848 Nov, [facility] [address] [id number] [place] [address]- 5005 August, [facility] [address] [id number] [address]- 2466 August, [facility] [place] [facility] [address] [id number] [place] [address]- 1446 August, [facility] [place] [facility] [address] [facility] [id number] [place] [address]- 2546 Jul, [facility] [place] [facility] [address] [id number] [place] [address]- 7076 May, [facility] [place] [facility] [address] [facility] [id number] [place] [address]- 1786 May, [facility] [place] [facility] [address] [id number] [place] [address]- 1046 May, [facility] [address] [id number] [address] Mar, [facility] [address]65[address], [place] [address] 25[address] Jan, [facility] [address] [id number], [place] [address]76 Jan, [facility] [id number], [place] [address] 4726 Oct, [facility] [id number], [place] [address] 4022 August, [facility] [id number] [place] [address] 3536 Jan, [facility] [id number], [place] [address] 9576 Jan, [facility] [address]65[address], [place] [address] 8[address] Jan, [facility] [address] [id number], [place] [address] 9806 Jan, IMMUNIZATIONS No Known Immunizations SOCIAL HISTORY Never Assessed REASON FOR VISIT Controlled Refill Request PLAN OF CARE VITAL SIGNS MEDICATIONS Medication [...]
--- OUTSIDE RECORDS SUMMARY | 2018-02-08 21:25 | XMS REPORT ---
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 Phone ROSIO IRBY Unavailable PROBLEMS Type Condition ICD9-CM Code [id number] Code Onset Dates Condition Status SNOMED Code Problem Mood disorder F39 Active 60095299 Problem Hypertension, benign I10 Active 60777397 Problem Obsessive compulsive disorder F42 Active 151208411 Problem Chronic hepatitis C without hepatic coma B18.2 Active 427825054 Problem History of alcohol abuse Z87.898 Active 045398499 Problem Hyperammonemia E72.20 Active 6157313 Problem Allergic rhinitis, unspecified allergic rhinitis type J30.9 Active 47207466 ALLERGIES No Known Allergies SOCIAL HISTORY No smoking Hx information available PLAN OF CARE VITAL SIGNS MEDICATIONS Medication Instructions Dosage Frequency Start Date End Date Duration Status Xanax 2 MG Orally 4 times a day 1 tablet 6h Jun, 28 days Active RESULTS No Results PROCEDURES No Known procedures IMMUNIZATIONS No Known Immunizations
--- OUTSIDE RECORDS SUMMARY | 2018-02-08 21:26 | XMS REPORT ---
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 Phone ROSIO IRBY Unavailable PROBLEMS Type Condition ICD9-CM Code [id number] Code Onset Dates Condition Status SNOMED Code Problem Mood disorder F39 Active 54655706 Problem Hypertension, benign I10 Active 71994308 Problem Obsessive compulsive disorder F42 Active 089215400 Problem Chronic hepatitis C without hepatic coma B18.2 Active 611999264 Problem History of alcohol abuse Z87.898 Active 857522948 Problem Hyperammonemia E72.20 Active 9300463 Problem Allergic rhinitis, unspecified allergic rhinitis type J30.9 Active 37892533 ALLERGIES No Information SOCIAL HISTORY Never Assessed PLAN OF CARE VITAL SIGNS MEDICATIONS Medication Instructions Dosage Frequency Start Date End Date Duration Status Xanax 2 MG Orally 4 times a day 1 tablet 6h Jun, 28 days Active RESULTS No Results PROCEDURES No Known procedures IMMUNIZATIONS No Known Immunizations MEDICAL (GENERAL) HISTORY Type Description Date Medical History hypertension Medical History insomnia Medical History hepatitis C (hx of IVDU)-dx'd 2003 (Harvskyla x12 week Apr- July 2015) Medical History [...]
--- OUTSIDE RECORDS SUMMARY | 2018-02-08 21:27 | XMS REPORT ---
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 Unknown Non Drug Allergy Apr, Unknown SOCIAL HISTORY No smoking Hx information available PLAN OF CARE VITAL SIGNS MEDICATIONS Medication Instructions Dosage Frequency Start Date End Date Duration Status Gabapentin 600 MG TAKE 1/2 TABLET EVERY MORNING AND AFTERNOON AND TAKE 1 TABLET AT BEDTIME 90 Active Triamcinolone Acetonide 0.1 % Externally Twice a day 1 application to affected area 12h Nov, Active Potassium Chloride ER 10 MEQ TAKE 1 CAPSULE EVERY DAY 90 Active Albuterol Sulfate HFA 108 (90 Base) MCG/ACT Inhalation every 4 hrs 2 puffs as needed 4h Mar, Active Centrum Adults Active Mirtazapine 15 MG TAKE 1 TABLET AT BEDTIME 90 Active Xifaxan 200 Orally Three times a day TAKE TWO TABLETS 8h 30 Active Aspirin by Oral route 81mg daily. May, Active Flaxseed (Linseed) 1200 MG Orally One a day Active Fish Oil 1200 MG Orally Once a day 1 capsule 24h Active Lexapro 20 MG TAKE 1 TABLET EVERY DAY 30 Active Hydrochlorothiazide 25 MG TAKE 1 TABLET EVERY DAY 90 Active Propranolol HCl 40 MG TAKE 1 TABLET THREE TIMES DAILY 90 Active Xanax 2 MG Orally 4 times a day 1 tablet 6h 25 Jun, 2014 28 days Active RESULTS No Results PROCEDURES No Known procedures IMMUNIZATIONS No Known Immunizations
--- OUTSIDE RECORDS SUMMARY | 2018-02-08 21:27 | XMS REPORT ---
Author Author ROSIO IRBY Organization [facility] Address [address] [place] [address] Care Team Providers Care School Services Officer Name Role Phone ROSIO IRBY Unavailable PROBLEMS Type Condition ICD9-CM Code YRP29-IM Code Onset Dates Condition Status SNOMED Code Problem History of alcohol abuse Z87.898 Active 034823901 Problem Mood disorder F39 Active 03512667 Problem Generalized anxiety disorder F41.1 Active 19136488 Problem Hypertension, benign I10 Active 40973851 Problem Allergic rhinitis, unspecified allergic rhinitis type J30.9 Active 26960637 Problem Chronic hepatitis C without hepatic coma B18.2 Active 699661532 Problem Obsessive compulsive disorder F42 Active 819124744 Problem Hyperammonemia E72.20 Active 4195920 ALLERGIES No Information ENCOUNTERS Encounter Location Date Diagnosis [place] [id number] [place] [address] 20516- 5122 Sep, Chronic hepatitis C without hepatic coma B18.2 [place] [id number] [place] [address] 86456- 7390 August, Chronic hepatitis C without hepatic coma B18.2 [place] [id number] [place] [address] 96831- 3706 Jul, Chronic hepatitis C without hepatic coma B18.2 [facility] [id number] [place] [address] 94402- 4784 Jul, Generalized anxiety disorder F41.1 ; Mood disorder F39 and History of hepatitis C Z86.19 [facility] [id number] [place] [address] 13567- 0211 Jul, Chronic hepatitis C without hepatic coma B18.2 [place] [id number] [place] [address] 46955- 6277 Jun, Chronic hepatitis C without hepatic coma B18.2 [facility] [id number] [place] [address] 78544- 9004 Jun, [facility] [id number] [place] [address] 36532- 4775 May, Chronic hepatitis C without hepatic coma B18.2 [facility] [id number] [place] [address] 54735- 6019 May, Hypertension, benign I10 [facility] [id number] [place] [address] 13371- 3138 Apr, Chronic hepatitis C without hepatic coma B18.2 [facility] [id number] [place] [address] 54460- 4979 Apr, Hypertension, benign I10 [facility] [id number] [place] [address] 67244- 2515 Mar, Chronic hepatitis C without hepatic coma B18.2 [facility] [id number] [place] [address] 34523- 2326 Mar, Hypertension, benign I10 [place] [id number] [place] [address] 91200- 3501 Mar, Encounter for immunization Z23 ; Hypertension, benign I10 and Strain of right Achilles tendon, initial encounter S86.011A [facility] [id number] [place] [address] 94436- 9386 Feb, Chronic hepatitis C without hepatic coma B18.2 [facility] [id number] [place] [address] 97349- 3577 Jan, Chronic hepatitis C without hepatic coma B18.2 [facility] [id number] [place] [address] 64735 -6211 Jan, Toe pain, right M79.674 and Cellulitis of foot, right L03.115 [facility] [id number] [place] [address] 64500- 4457 Dec, Chronic hepatitis C without hepatic coma B18.2 [facility] [address] [address]- 4006 Nov, Chronic hepatitis C without hepatic coma B18.2 and Eczema of both hands L30.9 [facility] [address] [address]- 6106 Nov, [facility] [id number] [place] [address] 16559- 8687 Oct, [facility] [address] [address]- 9332 Sep, [facility] [id number] [place] [address] 23956- 3156 August, [facility] [id number] [address]- 4160 August, [facility] [id number] [place] [address] 94512- 1224 Jul, [facility] [address] [address]- 7625 Jul, [facility] [id number] [address]- 4854 Jun, [facility] [address] [address]- 7632 Jun, [facility] [address] [address]- 2506 May, [facility] [address] [address]- 9660 Apr, Chronic hepatitis C without hepatic coma B18.2 ; Hyperglycemia R73.9 and Hypertension, benign I10 [facility] [address] [address]- 7576 Apr, Chronic hepatitis C without hepatic coma B18.2 ; Mood disorder F39 ; Hypertension, benign I10 and Hyperglycemia R73.9 [facility] [id number] [place] [address]- 9936 Apr, [facility] [id number] [place] [address]- 8787 Apr, [facility] [address] [place] [address]- 3538 Apr, [facility] [id number] [place] [address], [place] [address]- 4817 Feb, [facility] [id number] [place] [address], [place] [address]- 8941 Feb, [facility] [id number] [place] [address], [place] [address]- 6088 Feb, [facility] [id number] [place] [address]- 6387 Feb, [facility] [id number] [address]- 5871 Jan, [facility] [id number] [address]- 1101 Jan, Chronic hepatitis C without hepatic coma B18.2 ; Mood disorder F39 ; Encounter for immunization Z23 and Chronic viral hepatitis C B18.2 [facility] [address] [address]- 0684 Jan, [facility] [address] [address]- 2058 Jan, [facility] [id number] [address]- 5571 Dec, [facility] [id number] [address]- 6986 Dec, [facility] [address] [address]- 2204 Nov, [facility] [id number] [place] [address] 62279- 3028 Nov, Weakness of both legs M62.81 [facility] [id number] [place] [address] 46591- 9489 Nov, [facility] [id number] [place] [address] 92612- 0708 Nov, [facility] [id number] [place] [address] 67748- 2934 Nov, [facility] [id number] [place] [address] 18596- 1999 Nov, Eczema, unspecified type L30.9 [facility] [id number] [place] [address] 34760- 5130 Nov, [facility] [id number] [place] [address] 95445- 9814 Nov, Eczema, unspecified type L30.9 ; Cessation of tobacco use in previous 12 months Z87.891 and Weakness of both legs M62.81 [facility] [id number] [place] [address] 71775- 9076 Oct, [facility] [id number] [place] [address] 91714- 1591 Oct, [facility] [id number] [place] [address] 14457- 2948 Oct, [facility] [id number] [place] [address] 14895- 4931 Oct, Chronic viral hepatitis C B18.2 [facility] [id number] [place] [address] 74114- 7975 Sep, [place] [id number] [place] [address] 11578- 2253 Sep, 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 and Generalized anxiety disorder F41.1 [facility] [id number] [place] [address] 08982- 4252 Sep, [facility] [address] [address]- 1099 August, [facility] [address] [address]- 4006 August, Hyperammonemia E72.20 [facility] [address] [address]- 7715 August, Hyperammonemia E72.20 [facility] [id number] [place] [address] 45093- 7743 August, Hyperammonemia E72.20 and Chronic hepatitis C without hepatic coma B18.2 [facility] [id number] [place] [address] 39564- 2023 August, Chronic viral hepatitis C B18.2 [facility] [id number] [place] [address] 15742- 5620 August, [facility] [id number] [place] [address] 27602- 1666 Jul, Chronic viral hepatitis C B18.2 and Hyperammonemia E72.20 [facility] [address] [address]- 8178 Jul, Chronic viral hepatitis C B18.2 [facility] [address] [address]- 5431 Jul, [facility] [address] [address]- 1407 Jul, [facility] [address] [address]- 7740 Jun, [facility] [id number] [place] [address] 31467- 4344 Jun, Chronic viral hepatitis C B18.2 and Hyperammonemia E72.20 [facility] [address] [address]- 0159 Jun, [facility] [address] [address]- 6063 18 Jun, 2015 [facility] [address] [address]- 3165 16 Jun, 2015 Chronic viral hepatitis C B18.2 [facility] [address] [address]- 7829 10 Jun, 2015 [facility] [id number] [place] [address] 53532- 7656 07 Jun, 2015 Chronic viral hepatitis C B18.2 [facility] [id number] [place] [address] 04247- 4205 17 May, 2015 Chronic viral hepatitis C B18.2 and Hepatitis C, chronic B18.2 [facility] [address] [address]- 9842 May, [facility] [address] [address]- 6697 Apr, [facility] [address], [place] [address]- 2563 Apr, Chronic viral hepatitis C B18.2 and Hyperammonemia E72.20 [facility] [address] [address]- 3536 Apr, Chronic viral hepatitis C B18.2 [facility] [address] [address]- 5278 Apr, Hyperammonemia E72.20 [facility] [address] [address]- 7049 Apr, [facility] [address] [address]- 7820 Apr, [facility] [address] [address]- 7630 Apr, Chronic hepatitis C without hepatic coma B18.2 ; Chronic viral hepatitis C B18.2 and Hyperammonemia E72.20 [facility] [id number] [place] [address] 23163- 8945 Mar, Shortness of breath R06.02 [facility] [id number] [place] [address] 37356- 1467 Mar, Mood disorder F39 and Major depressive disorder, recurrent episode, unspecified 296.30 [facility] [address] 23498- 3820 Mar, [facility] [id number] [place] [address] 47115- 9981 Mar, [facility] [id number] [place] [address] 83116- 4906 15 Mar, 2015 [facility] [address] 65604 -1389 Mar, Seasonal allergies J30.2 ; Shortness of breath R06.02 and Cough R05 [facility] [id number] [place] [address] 30569- 5436 Mar, Hyperammonemia E72.20 ; Mood disorder F39 and History of alcohol abuse Z87.898 [place] [id number] [place] [address] 65970- 5888 Mar, Hyperammonemia E72.20 [facility] [id number] [place] [address] 17111- 6121 Mar, [facility] [id number] [place] [address] 96316- 7063 Feb, [facility] [address] 80781- 9730 Feb, [facility] [id number] [place] [address] 12178- 4998 Feb, Hyperammonemia E72.20 [facility] [address] [place] [address]- 0811 Feb, [facility] [id number] [place] [address] 77170- 5273 Feb, [facility] [id number] [place] [address] 67686- 5215 Feb, [facility] [id number] [place] [address] 41429- 7789 Feb, [facility] [id number] [place] [address] 32549- 6441 Feb, Chronic viral hepatitis C B18.2 [facility] [id number] [place] [address] 97964- 7097 Feb, Chronic viral hepatitis C B18.2 [facility] [id number] [place] [address] 42671- 8240 Feb, [facility] [id number] [place] [address] 29616- 1927 Feb, Chronic viral hepatitis C B18.2 and Confusion R41.0 [facility] [id number] [place] [address] 70475- 7655 Feb, [facility] [id number] [place] [address] 02521- 0023 Jan, [facility] [id number] [place] [address] 47479- 0134 Jan, Confusion R41.0 [facility] [id number] [place] [address] 01940- 9419 Jan, [facility] [id number] [place] [address] 73288- 5515 Jan, [facility] [id number] [place] [address] 86517- 7236 Jan, [facility] [address] [place] [address] 01376- 4011 Jan, [facility] [address] [address]- 3807 Jan, Chronic viral hepatitis C B18.2 and 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 [facility] [id number] [place] [address] 88405- 1346 Jan, [facility] [id number] [place] [address] 19965- 3036 Jan, [facility] [id number] [place] [address] 90281- 6470 Jan, [facility] [id number] [place] [address] 99755- 6270 Jan, [facility] [id number] [place] [address] 32095- 7233 Jan, Chronic viral hepatitis C B18.2 [facility] [id number] [place] [address] 58537- 4295 Jan, [facility] [id number] [place] [address] 53012- 2878 Jan, Back pain at L4-L5 level M54.5 and Confusion R41.0 [facility] [id number] [address]- 4263 Jan, [facility] [id number] [place] [address] 75479- 2653 30 Dec, 2014 Chronic viral hepatitis C B18.2 and Flu vaccine need V04.81 [facility] [address] [place] [address] 13669- 0874 30 Dec, 2014 Chronic viral hepatitis C B18.2 [facility] [id number] [place] [address] 00869- 0448 28 Dec, 2014 [facility] [address] [address]- 0925 Dec, Polyuria 788.42 [facility] [address] [place] [address]- 2468 Dec, Polyuria 788.42 ; Polydipsia 783.5 ; Dizziness 780.4 and Hepatitis C, chronic 070.54 [facility] [id number] [place] [address] 14251- 7250 10 Dec, 2014 Major depressive disorder, recurrent episode, unspecified 296.30 and Generalized anxiety disorder 300.02 [facility] [id number] [place] [address] 04215- 6310 Nov, [facility] [id number] [place] [address] 19369- 9358 Nov, [facility] [id number] [place] [address] 40012- 8530 Nov, [facility] [id number] [place] [address] 76259- 0605 Oct, [facility] [id number] [place] [address] 22140- 9975 Sep, [facility] [id number] [place] [address] 04253- 6794 August, Obsessive-compulsive disorders 300.3 ; Generalized anxiety disorder 300.02 and Major depressive disorder, recurrent episode, unspecified 296.30 [facility] [id number] [place] [address] 69384- 9602 August, Chronic hepatitis C without mention of hepatic coma 070.54 ; Hypertension 401.9 and Seasonal allergies 477.9 [facility] [id number] [place] [address] 96344- 3625 Jul, [facility] [id number] [place] [address] 59159- 7884 Jul, [facility] [id number] [place] [address] 87436- 7780 Jun, [facility] [id number] [place] [address] 38874- 8376 Jun, [facility] [address] [id number] [place] [address]- 2340 May, [facility] [place] [facility] [address] [id number] [place] [address]- 7690 May, [facility] [place] [facility] [address] [id number] [place] [address]- 3588 May, [facility] [place] [facility] [address] [id number] [place] [address]- 7263 May, [facility] [place] [facility] [address] [id number] [place] [address]- 3297 Apr, [facility] [place] [facility] [address] [id number] [place] [address]- 5733 Apr, [facility] [place] [facility] [address] [id number] [place] [address]- 5015 Apr, [facility] [place] [facility] [address] [id number] [place] [address]- 5751 Apr, [facility] [place] [facility] [address] [id number] [place] [address]- 9163 Apr, [facility] [place] [facility] [address] [id number] [place] [address]- 1256 Apr, [facility] [place] [facility] [address] [id number] [place] [address]- 1760 Mar, [facility] [place] [facility] [address] [id number] [place] [address]- 9170 Mar, [facility] [place] [facility] [address] [id number] [place] [address]- 2740 Mar, [facility] [place] [facility] [address] [id number] [place] [address]- 2888 Mar, [facility] [place] [facility] [address] [id number] [place] [address]- 1122 Mar, [facility] [place] [facility] [address] [id number] [place] 5548 17 Mar, 2014 [facility] [place] [facility] [address] [id number] [place] [address]- 1808 Mar, [facility] [place] [facility] [address] [id number] [place] 7390 Mar, [facility] [place] [facility] [address] [id number] [place] [address]- 4187 Mar, [facility] [place] [facility] [address] [id number] [place] [address]- 8979 Feb, [facility] [place] [facility] [address] [id number] [place] [address]- 6044 Feb, [facility] [place] [facility] [address] [id number] [place] [address]- 4423 Feb, [facility] [place] [facility] [address] [id number] [place] [address]- 5044 Feb, [facility] [place] [facility] [address] [id number] [place] [address]- 0881 Feb, [facility] [place] [facility] [address] [id number] [place] [address]- 6073 Jan, [facility] [place] [facility] [address] [facility] [id number] [place] [address]- 8990 Jan, [facility] [place] [facility] [address] [id number] [place] [address]- 4541 Jan, [facility] [place] [facility] [address] [id number] [place] [address]- 8854 Jan, [facility] [place] [facility] [address] [id number] [place] [address]- 1666 Jan, [facility] [place] [facility] [address] [facility] [id number] [place] [address] Jan, [facility] [place] [facility] [address] [facility] [id number] [place] [address] Jan, [facility] [place] [facility] [address] [id number] [place] [address] Jan, [facility] [place] [facility] [address] [id number] [place] [address] Jan, [facility] [place] [facility] [address] [id number] [place] [address] Nov, [facility] [place] [facility] [address] [id number] [place] [address] Nov, [facility] [place] [facility] [address] [id number] [place] [address] Nov, [facility] [place] [facility] [address] [id number] [place] [address] Oct, [facility] [place] [facility] [address] [id number] [place] [address] Oct, [facility] [place] [facility] [address] [id number] [place] [address] Oct, [facility] [place] [facility] [address] [id number] [place] [address] Oct, [facility] [place] [facility] [address] [id number] [place] [address] Sep, [facility] [place] [facility] [address] [id number] [place] [address] Sep, [facility] [place] [facility] [address] [id number] [place] [address] Sep, [facility] [place] [facility] [address] [id number] [place] [address] Sep, [facility] [place] [facility] [address] [id number] [place] [address] Sep, [facility] [place] [facility] [address] [id number] [place] [address] Sep, [facility] [place] [facility] [address] [id number] [place] [address] August, [facility] [place] [facility] [address] [id number] [place] [address] August, [facility] [place] [facility] [address] [id number] [place] [address] Jul, [facility] [place] [facility] [address] [id number] [place] [address] Jul, [facility] [place] [facility] [address] [id number] [place] [address] Jul, [facility] [place] [facility] [address] [id number] [place] [address] Jul, [facility] [place] [facility] [address] [id number] [place] [address] Jul, [facility] [place] [facility] [address] [id number] [place] [address] Jul, [facility] [place] [facility] [address] [id number] [place] [address] Jul, [facility] [place] [facility] [address] [id number] [place] [address] Jul, [facility] [place] [facility] [address] [id number] [place] [address] Jul, [facility] [place] [facility] [address] [id number] [place] [address] Jul, [facility] [place] [facility] [address] [id number] [place] [address] Jun, [facility] [place] [facility] [address] [id number] [place] [address] Jun, [facility] [place] [facility] [address] [id number] [place] [address] Jun, [facility] [place] [facility] [address] [id number] [place] [address] Jun, [facility] [place] [facility] [address] [id number] [place] [address] May, 2013 [facility] [place] [facility] [address] [id number] [place] [address] May, 2013 [facility] [place] [facility] [address] [id number] [place] [address] May, 2013 [facility] [place] [facility] [address] [id number] [place] [address] May, 2013 [facility] [place] [facility] [address] [id number] [place] [address] May, [facility] [place] [facility] [address] [id number] [place] [address] 10 May, 2013 [facility] [place] [facility] [address] [id number] [place] [address] 16 Mar, 2013 [facility] [place] [facility] [address] [id number] [place] [address] 16 Mar, 2013 [facility] [place] [facility] [address] [id number] [place] [address] 2548 16 Mar, 2013 [facility] [place] [facility] [address] [id number] [place] [address] Mar, [facility] [place] [facility] [address] [id number] [place] [address] 16 Mar, 2013 [facility] [place] [facility] [address] [id number] [place] [address] Mar, [facility] [place] [facility] [address] [id number] [place] [address] 2540 Feb, [facility] [place] [facility] [address] [id number] [place] [address] 2546 23 Feb, 2013 [facility] [place] [facility] [address] [id number] [place] [address] 2546 Feb, [facility] [place] [facility] [address] [id number] [place] [address] Feb, [facility] [place] [facility] [address] [id number] [place] [address] Feb, [facility] [place] [facility] [address] [id number] [place] [address] 12 Feb, 2013 [facility] [place] [facility] [address] [id number] [place] [address] Feb, [facility] [place] [facility] [address] [id number] [place] [address]797 07 Feb, 2013 [facility] [place] [facility] [address] [id number] [place] [address] 47[address] 18 Jan, 2013 [facility] [place] [facility] [address] [id number] [place] [address] 18 Jan, 2013 [facility] [place] [facility] [address] [id number] [place] [address] 17 Jan, 2013 [facility] [place] [facility] [address] [id number] [address] 16 Jan, 2013 [facility] [place] [facility] [address] [id number][place] [address] 16 Jan, 2013 [facility] [place] [facility] [address] [id number][place] [address] 14 Jan, 2013 [facility] [place] [facility] [address] [id number], [place] [address] 14 Jan, 2013 [facility] [place] [facility] [address] [id number][place] [address] 11 Jan, 2013 [facility] [place] [facility] [address] [id number][place] [address] 11 Jan, 2013 [facility] [place] [facility] [address] [id number], [place] [address] 10 Jan, 2013 [facility] [place] [facility] [address] [id number], [place] [address] 27 Dec, 2012 [facility] [place] [facility] [address] [id number] [place] [address] Dec, [facility] [place] [facility] [address] [id number] [place] [address] Dec, [facility] [place] [facility] [address] [id number] [place] [address] Nov, [facility] [place] [facility] [address] [id number] [place] [address] 74[address] Nov, [facility] [place] [facility] [address] [id number] [place] [address] 44[address] Nov, [facility] [place] [facility] [address] [id number] [place] [address] Nov, [facility] [place] [facility] [address] [id number] [place] [address] 113[address] Nov, [facility] [place] [facility] [address] [id number] [place] [address] Nov, [facility] [place] [facility] [address] [id number] [place] [address]858 Nov, [facility] [place] [facility] [address] [id number] [place] [address] 6[address] Nov, [facility] [place] [facility] [address] [id number] [place] [address] Nov, [facility] [place] [facility] [address] [id number] [place] [address] Nov, [facility] [place] [facility] [address] [id number] [place] [address] Oct, [facility] [place] [facility] [address] [id number] [place] [address] 7585 Oct, [facility] [place] [facility] [address] [id number] [place] [address] Oct, [facility] [place] [facility] [address] [id number] [place] [address] 6418 Oct, [facility] [place] [facility] [address] [id number] [place] [address]84 Oct, [facility] [address] [id number] [place] [address] Oct, [facility] [address] [id number] [place] [address] Oct, [facility] [address] [id number] [place] [address] 9676 Oct, [facility] [address] [id number] [place] [address] 7901 Sep, [facility] [address] [id number] [place] [address]104 Sep, [facility] [address] [id number] [place] [address] 2329 Sep, [facility] [address] [id number] [place] [address] 0922 Sep, [facility] [address] [id number] [place] [address] 2210 August, [facility] [address] [id number] [place] [address] 4745 August, [facility] [address] [id number] [place] [address]358 August, [facility] [address] [place] [id number] Jul, [facility] [address] [id number] Jul, [facility] [address] [id number] [place] [address] 2540 Jun, [facility] [address] [id number] [place] [address] 2536 May, [facility] [address] [id number] [place] [address] 9726 May, [facility] [address] [id number] [place] [address]606 Apr, [facility] [address] [id number] [place] [address] 4506 Feb, [facility] [address] [id number] [place] [address]- 2546 Feb, [facility] [address] [id number] [place] [address]- 4096 Jan, [facility] [address] [id number] [place] [address]- 8826 Jan, [facility] [address] [id number] [place] [address]- 5685 Jan, [facility] [address] [id number] [place] [address]- 5966 Jan, [facility] [address] [id number] [place] [address]- 4168 Jan, [facility] [address] [id number] [place] [address]- 1605 Dec, [facility] [address] [id number] [place] [address]76 Dec, [facility] [address] [id number] [id number] Nov, [facility] [address] [id number] [place] [address]- 2346 Nov, [facility] [address] [id number][place] [address] 1286 Nov, [facility] [address] [id number] [place] [address]- 5856 Nov, [facility] [place] [facility] [address] [id number] [place] [address]- 0416 August, [facility] [address] [id number] [place] [address]- 3916 August, [facility] [address] [facility] [id number], [place] [address] August, [facility] [address] [facility] [id number], [place] [address] Jul, [facility] [address] [facility] [id number], [place] [address] May, [facility] [address] [facility] [id number], [place] [address] 130[address] May, [facility] [address] [facility] [id number], [place] [address] 65[address] May, [facility] [address] [facility] [id number], [place] [address] Mar, [facility] [address] [facility] [id number], [place] [address]33 Jan, [facility] [address] [facility] [id number], [place] [address]385 Jan, [facility] [address] [facility] [id number], [place] [address] Oct, [facility] [address] [id number] August, [facility] [id number], [place] [address] Jan, [facility] [address] [facility] [id number], [place] [address] 3136 Jan, [facility] [address] [facility] [id number], [place] [address] Jan, [facility] [id number] [address] Jan, IMMUNIZATIONS No Known Immunizations SOCIAL HISTORY [...]
--- OUTSIDE RECORDS SUMMARY | 2018-02-08 21:27 | XMS REPORT ---
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]
--- OUTSIDE RECORDS SUMMARY | 2018-02-08 21:28 | XMS REPORT ---
Author Author ROSIO IRBY Organization [facility] Address [address] [place] [address] Care Team Providers Care Legal Mediator Name Role Phone ROSIO IRBY Unavailable PROBLEMS Type Condition ICD9-CM Code BFM31-PW Code Onset Dates Condition Status SNOMED Code Problem History of alcohol abuse Z87.898 Active 577558712 Problem Mood disorder F39 Active 71765553 Problem Generalized anxiety disorder F41.1 Active 16687000 Problem Hypertension, benign I10 Active 60147689 Problem Allergic rhinitis, unspecified allergic rhinitis type J30.9 Active 57115191 Problem Chronic hepatitis C without hepatic coma B18.2 Active 592819426 Problem Obsessive compulsive disorder F42 Active 139583767 Problem Hyperammonemia E72.20 Active 1644325 ALLERGIES No Information ENCOUNTERS Encounter Location Date Diagnosis [place] [id number] [place] [address] 94641- 3133 Sep, [facility] [id number] [place] [address] 60069- 5126 August, Chronic hepatitis C without hepatic coma B18.2 [facility] [id number] [place] [address] 07275- 2332 Jul, Chronic hepatitis C without hepatic coma B18.2 [facility] [id number] [place] [address] 44872- 9561 Jul, Generalized anxiety disorder F41.1 ; Mood disorder F39 and History of hepatitis C Z86.19 [facility] [id number] [place] [address] 93341- 2201 Jul, Chronic hepatitis C without hepatic coma B18.2 [facility] [id number] [place] [address] 39749- 7962 Jun, Chronic hepatitis C without hepatic coma B18.2 [facility] [id number] [place] [address] 36597- 1643 Jun, [facility] [id number] [place] [address] 01505- 3641 May, Chronic hepatitis C without hepatic coma B18.2 [facility] [id number] [place] [address] 87165- 2638 May, Hypertension, benign I10 [facility] [id number] [place] [address] 13940- 1746 Apr, Chronic hepatitis C without hepatic coma B18.2 [place] [id number] [place] [address] 03023- 0277 Apr, Hypertension, benign I10 [place] [id number] [place] [address] 07462- 9872 Mar, Chronic hepatitis C without hepatic coma B18.2 [place] [id number] [place] [address] 75588- 3867 Mar, Hypertension, benign I10 [place] [id number] [place] [address] 10724- 5705 Mar, Hypertension, benign I10 ; Encounter for immunization Z23 and Strain of right Achilles tendon, initial encounter S86.011A [place] [id number] [place] [address] 70251- 0732 Feb, Chronic hepatitis C without hepatic coma B18.2 [place] [id number] [place] [address] 85222- 8061 Jan, Chronic hepatitis C without hepatic coma B18.2 [facility] [id number] [place] [address] 29005 -4676 Jan, Toe pain, right M79.674 and Cellulitis of foot, right L03.115 [place] [id number] [place] [address] 67389- 8722 Dec, Chronic hepatitis C without hepatic coma B18.2 [facility] [id number] [place] [address]- 5650 Nov, Chronic hepatitis C without hepatic coma B18.2 and Eczema of both hands L30.9 [facility] [id number] [place] [address]- 2606 Nov, [facility] [id number] [place] [address] 36651- 7781 Oct, [facility] [id number] [address]- 4903 Sep, [facility] [id number] [place] [address], [place] [address]- 6468 August, [facility] [id number] [place] [address]- 6821 August, [facility] [id number] [address]- 0075 Jul, [facility] [id number] [address]- 1311 Jul, [facility] [id number] [address]- 5931 Jun, [facility] [id number] [address]- 6392 Jun, [facility] [id number] [address]- 6478 May, [facility] [id number] [address]- 0583 Apr, Chronic hepatitis C without hepatic coma B18.2 ; Hyperglycemia R73.9 and Hypertension, benign I10 [facility] [id number] [address]- 2546 Apr, Chronic hepatitis C without hepatic coma B18.2 ; Mood disorder F39 ; Hypertension, benign I10 and Hyperglycemia R73.9 [facility] [id number] [address]- 2692 Apr, [facility] [id number] [address]- 3850 Apr, [facility] [id number] [address]- 3496 Apr, [facility] [id number] [place] [address], [place] [address]- 7047 Feb, [facility] [address] [facility] [id number] [place] [address]- 7813 Feb, [facility] [id number] [place] [address], [place] [address]- 6294 Feb, [facility] [id number] [address]- 1235 Feb, [facility] [id number] [address]- 5210 Jan, [facility] [id number] [address]- 6632 Jan, Chronic hepatitis C without hepatic coma B18.2 ; Mood disorder F39 ; Encounter for immunization Z23 and Chronic viral hepatitis C B18.2 [facility] [id number] [address]- 0254 Jan, [facility] [id number] [address]- 8508 Jan, [facility] [id number] [address]- 3915 Dec, [facility] [address] [address]- 0972 Dec, [facility] [address] [id number] [address]- 2822 Nov, [facility] [address] [address]- 2395 Nov, Weakness of both legs M62.81 [facility] [id number] [place] [address] 37479- 9083 Nov, [facility] [id number] [place] [address] 13471- 4103 Nov, [facility] [id number] [place] [address] 70339- 0532 Nov, [facility] [id number] [place] [address] 29008- 5503 Nov, Eczema, unspecified type L30.9 [facility] [id number] [place] [address] 15673- 7965 Nov, [facility] [id number] [place] [address] 00942- 7763 Nov, Eczema, unspecified type L30.9 ; Cessation of tobacco use in previous 12 months Z87.891 and Weakness of both legs M62.81 [facility] [id number] [place] [address] 14775- 9810 Oct, [facility] [id number] [place] [address] 87705- 4263 Oct, [facility] [id number] [place] [address] 03458- 9629 Oct, [facility] [id number] [place] [address] 69787- 2560 Oct, Chronic viral hepatitis C B18.2 [facility] [id number] [place] [address] 54166- 6727 Sep, [facility] [id number] [place] [address] 71870- 5713 Sep, 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20 and Chronic hepatitis C without hepatic coma B18.2 [facility] [id number] [place] [address] 96124- 7589 August, Chronic viral hepatitis C B18.2 [facility] [id number] [place] [address] 61427- 5353 August, [facility] [id number] [place] [address] 35387- 7101 Jul, Chronic viral hepatitis C B18.2 and Hyperammonemia E72.20 [facility] [id number] [place] [address] 32678- 1380 Jul, Chronic viral hepatitis C B18.2 [facility] [id number] [place] [address] 77232- 4426 Jul, [facility] [id number] [place] [address] 49102- 6697 Jul, [facility] [id number] [place] [address] 72864- 7367 Jun, [facility] [id number] [place] [address] 80527- 8861 Jun, Chronic viral hepatitis C B18.2 and Hyperammonemia E72.20 [facility] [id number] [place] [address] 08491- 1273 Jun, [facility] [id number] [address]- 3516 18 Jun, 2015 [facility] [address] [address]- 7216 16 Jun, 2015 Chronic viral hepatitis C B18.2 [facility] [address] [address]- 2426 10 Jun, 2015 [facility] [id number] [place] [address] 54274 2546 07 Jun, 2015 Chronic viral hepatitis C B18.2 [facility] [address] [address]- 9686 17 May, 2015 Hepatitis C, chronic B18.2 and Chronic viral hepatitis C B18.2 [facility] [address] [address]- 6696 May, [facility] [address] [address]- 8020 Apr, [facility] [address] [address]- 7236 Apr, Chronic viral hepatitis C B18.2 and Hyperammonemia E72.20 [facility] [address] [address]- 6026 Apr, Chronic viral hepatitis C B18.2 [facility] [address] [address] 2546 Apr, Hyperammonemia E72.20 [facility] [address] [address] 2546 Apr, [facility] [address] [address]- 2546 Apr, [facility] [address] [address]- 5655 13 Apr, 2015 Chronic hepatitis C without hepatic coma B18.2 ; Hyperammonemia E72.20 and Chronic viral hepatitis C B18.2 [facility] [id number] [place] [address] 14582- 8162 Mar, Shortness of breath R06.02 [place] [id number] [place] [address] 77889- 6393 Mar, Mood disorder F39 and Major depressive disorder, recurrent episode, unspecified 296.30 [place] [address] 04903- 3411 Mar, [place] [address] 03704- 0194 Mar, [place] [address] 53864- 7667 Mar, [facility] [address] 53818 -2460 Mar, Seasonal allergies J30.2 ; Shortness of breath R06.02 and Cough R05 [place] [id number] [place] [address] 98078- 8999 Mar, Hyperammonemia E72.20 ; Mood disorder F39 and History of alcohol abuse Z87.898 [place] [id number] [place] [address] 61391- 7022 Mar, Hyperammonemia E72.20 [place] [id number] [place] [address] 92018- 7491 Mar, [place] [id number] [place] [address] 59945- 8007 Feb, [place] [address] 83423- 7021 Feb, [place] [id number] [place] [address] 33192- 1925 Feb, Hyperammonemia E72.20 [place] [address] 34191- 0359 Feb, [facility] [address] [facility] [id number] [address]- 0474 Feb, [facility] [address] [facility] [id number] [place] [address] 19441- 5883 Feb, [facility] [address] [address]- 1612 Feb, [facility] [id number] [place] [address] 61472- 9053 Feb, Chronic viral hepatitis C B18.2 [facility] [id number] [place] [address] 41900- 7301 Feb, Chronic viral hepatitis C B18.2 [facility] [id number] [place] [address] 59746- 0475 Feb, [facility] [id number] [place] [address] 19016- 5567 Feb, Chronic viral hepatitis C B18.2 and Confusion R41.0 [facility] [address] [address]- 7975 Feb, [facility] [id number] [place] [address] 70121- 0981 Jan, [facility] [address] [address]- 8752 Jan, Confusion R41.0 [facility] [address] [address]- 3061 Jan, [facility] [id number] [address]- 0842 Jan, [facility] [id number] [address]- 1113 Jan, [facility] [address] [address]- 7305 Jan, [facility] [id number] [place] [address] 75909- 1920 Jan, Chronic viral hepatitis C B18.2 and 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 [facility] [id number] [place] [address] 74640- 7832 Jan, [facility] [id number] [place] [address] 79383- 7122 Jan, [facility] [id number] [place] [address] 57880- 9290 Jan, [facility] [id number] [place] [address] 19022- 9596 Jan, [facility] [id number] [place] [address] 91933- 2462 Jan, Chronic viral hepatitis C B18.2 [facility] [id number] [place] [address] 85801- 9250 Jan, [facility] [id number] [place] [address] 34924- 0046 Jan, Back pain at L4-L5 level M54.5 and Confusion R41.0 [facility] [id number] [place] [address] 41700- 4068 Jan, [facility] [id number] [place] [address] 70507- 6480 30 Dec, 2014 Chronic viral hepatitis C B18.2 and Flu vaccine need V04.81 [facility] [id number] [place] [address] 95574- 3947 30 Dec, 2014 Chronic viral hepatitis C B18.2 [facility] [id number] [place] [address] 41381- 3230 28 Dec, 2014 [facility] [id number] [place] [address] 65916- 8935 Dec, Polyuria 788.42 [facility] [address] 14816- 1909 Dec, Polyuria 788.42 ; Polydipsia 783.5 ; Dizziness 780.4 and Hepatitis C, chronic 070.54 [facility] [id number] [place] [address] 55291- 8755 Dec, Major depressive disorder, recurrent episode, unspecified 296.30 and Generalized anxiety disorder 300.02 [facility] [id number] [place] [address] 19399- 2302 Nov, [facility] [id number] [place] [address] 73657- 2583 Nov, [facility] [id number] [place] [address] 17776- 2889 Nov, [facility] [id number] [place] [address] 73594- 5842 Oct, [facility] [id number] [place] [address] 97845- 6847 Sep, [facility] [id number] [place] [address] 55885- 4991 August, Obsessive-compulsive disorders 300.3 ; Generalized anxiety disorder 300.02 and Major depressive disorder, recurrent episode, unspecified 296.30 [facility] [id number] [place] [address] 27851- 9582 August, Chronic hepatitis C without mention of hepatic coma 070.54 ; Hypertension 401.9 and Seasonal allergies 477.9 [facility] [id number] [place] [address] 26306- 9431 Jul, [facility] [id number] [place] [address] 96280- 2074 Jul, [facility] [id number] [place] [address] 74391- 6302 Jun, [facility] [id number] [place] [address] 10558- 7245 Jun, [facility] [address] [address]- 7883 May, [facility] [place] [facility] [address] [id number] [place] [address]- 1296 May, [facility] [place] [facility] [address] [id number] [place] [address]- 0836 May, [facility] [place] [facility] [address] [id number] [place] [address]- 7416 May, [facility] [place] [facility] [address] [id number] [place] [address]- 5600 Apr, [facility] [place] [facility] [address] [id number] [place] [address]- 1240 Apr, [facility] [place] [facility] [address] [id number] [place] [address]- 0651 Apr, [facility] [place] [facility] [address] [id number] [place] [address]- 2220 Apr, [facility] [place] [facility] [address] [id number] [place] [address]- 7957 Apr, [facility] [place] [facility] [address] [id number] [place] [address]- 1801 Apr, [facility] [place] [facility] [address] [id number] [place] [address]- 9950 Mar, [facility] [place] [facility] [address] [id number] [place] [address]- 0099 Mar, [facility] [place] [facility] [address] [id number] [place] [address]- 1094 Mar, [facility] [place] [facility] [address] [id number] [place] 4768 Mar, [facility] [place] [facility] [address] [id number] [place] [address]- 8656 Mar, [facility] [place] [facility] [address] [id number] [place] [address]- 2181 Mar, [facility] [place] [facility] [address] [id number] [place] [address]- 6468 Mar, [facility] [place] [facility] [address] [id number] [place] 4816 Mar, [facility] [place] [facility] [address] [id number] [place] [address]- 5987 Mar, [facility] [place] [facility] [address] [id number] [place] [address]- 6896 Feb, [facility] [place] [facility] [address] [id number] [place] [address]- 6191 Feb, [facility] [place] [facility] [address] [id number] [place] [address]- 1633 Feb, [facility] [place] [facility] [address] [id number] [place] [address]- 4605 Feb, [facility] [place] [facility] [address] [id number] [place] [address]- 1446 Feb, [facility] [place] [facility] [address] [id number] [place] [address]- 7182 Jan, [facility] [place] [facility] [address] [id number] [place] [address]- 8777 Jan, [facility] [place] [facility] [address] [id number] [address]- 4104 Jan, [facility] [place] [facility] [address] [id number] [address]- 7333 Jan, [facility] [place] [facility] [address] [id number] [place] [address]- 6217 Jan, [facility] [place] [facility] [address] [id number] [place] 7137 Jan, [facility] [place] [facility] [address] [id number] [place] 6844 Jan, [facility] [place] [facility] [address] [id number] [place] 2207 Jan, [facility] [place] [facility] [address] [id number] [place] [address]- 3570 Jan, [facility] [place] [facility] [address] [id number] [place] [address]- 5328 Nov, [facility] [place] [facility] [address] [id number] [place] [address]- 3524 Nov, [facility] [place] [facility] [address] [id number] [place] [address]- 3286 Nov, [facility] [place] [facility] [address] [id number] [place] [address]- 8362 Oct, [facility] [place] [facility] [address] [id number] [place] [address]- 3590 Oct, [facility] [place] [facility] [address] [id number] [place] [address]- 7485 Oct, [facility] [place] [facility] [address] [id number] [place] [address] Oct, [facility] [place] [facility] [address] [id number] [place] [address] Sep, [facility] [place] [facility] [address] [id number] [place] [address] Sep, [facility] [place] [facility] [address] [id number] [place] [address] Sep, [facility] [place] [facility] [address] [id number] [place] [address] Sep, [facility] [place] [facility] [address] [id number] [place] [address] Sep, [facility] [place] [facility] [address] [id number] [place] [address] Sep, [facility] [place] [facility] [address] [id number] [place] [address] August, [facility] [place] [facility] [address] [id number] [place] [address] August, [facility] [place] [facility] [address] [id number] [place] [address] Jul, [facility] [place] [facility] [address] [id number] [place] [address] Jul, [facility] [place] [facility] [address] [id number] [place] [address] Jul, [facility] [place] [facility] [address] [id number] [place] [address] Jul, [facility] [place] [facility] [address] [id number] [place] [address] Jul, [facility] [place] [facility] [address] [id number] [place] [address] Jul, [facility] [place] [facility] [address] [id number] [place] [address] Jul, [facility] [place] [facility] [address] [id number] [place] [address] Jul, [facility] [place] [facility] [address] [id number] [place] [address] Jul, [facility] [place] [facility] [address] [id number] [place] [address] Jul, [facility] [place] [facility] [address] [id number] [place] [address] Jun, [facility] [place] [facility] [address] [id number] [place] [address] Jun, [facility] [place] [facility] [address] [id number] [place] [address] Jun, [facility] [place] [facility] [address] [id number] [place] [address] Jun, [facility] [place] [facility] [address] [id number] [place] [address] May, [facility] [address] [id number] [place] [address] May, [facility] [place] [facility] [address] [id number] [place] [address] May, [facility] [place] [facility] [address] [id number] [place] [address] 12 May, 2013 [facility] [place] [facility] [address] [id number] [place] [address] 10 May, 2013 [facility] [place] [facility] [address] [id number] [place] [address] 10 May, 2013 [facility] [place] [facility] [address] [id number] [place] [address] 16 Mar, 2013 [facility] [address] [id number] [place] [address] 16 Mar, 2013 [facility] [place] [facility] [address] [id number] [place] [address] 16 Mar, 2013 [facility] [place] [facility] [address] [address] [id number] [place] [address] Mar, [facility] [place] [facility] [address] [facility] [id number] [place] [address] 16 Mar, 2013 [facility] [place] [facility] [address] [id number] [place] [address] 16 Mar, 2013 [facility] [place] [facility] [address] [id number] [place] [address] Feb, [facility] [place] [facility] [address] [id number] [place] [address] Feb, [facility] [place] [facility] [address] [id number] [place] [address] Feb, [facility] [place] [facility] [address] [id number] [place] [address] Feb, [facility] [place] [facility] [address] [id number] [place] [address] 12 Feb, 2013 [facility] [place] [facility] [address] [id number] [place] [address] 12 Feb, 2013 [facility] [place] [facility] [address] [id number] [place] [address] 07 Feb, 2013 [facility] [place] [facility] [address] [id number] [place] [address] 07 Feb, 2013 [facility] [place] [facility] [address] [id number] [place] [address] 18 Jan, 2013 [facility] [place] [facility] [address] [id number] [place] [address] 79[address] 18 Jan, 2013 [facility] [place] [facility] [address] [id number] [place] [address] 17 Jan, 2013 [facility] [place] [facility] [address] [id number] [place] [address] 16 Jan, 2013 [facility] [place] [facility] [address] [id number] [place] [address] 16 Jan, 2013 [facility] [place] [facility] [address] [id number] [place] [address] 14 Jan, 2013 [facility] [place] [facility] [address] [id number] [place] [address] 14 Jan, 2013 [facility] [place] [facility] [address] [id number] [place] [address]231 11 Jan, 2013 [facility] [place] [facility] [address] [id number] [place] [address] 11 Jan, 2013 [facility] [place] [facility] [address] [id number] [place] [address] 10 Jan, 2013 [facility] [place] [facility] [address] [id number] [place] [address]77 27 Dec, 2012 [facility] [place] [facility] [address] [id number] [place] [address] Dec, [facility] [place] [facility] [address] [id number] [place] [address]64 Dec, [facility] [place] [facility] [address] [id number] [place] [address] 1998 Nov, [facility] [place] [facility] [address] [id number] [place] [address] Nov, [facility] [place] [facility] [address] [id number] [place] [address] Nov, [facility] [place] [facility] [address] [id number] [place] [address]158 Nov, [facility] [place] [facility] [address] [id number] [place] [address] Nov, [facility] [place] [facility] [address] [id number] [place] [address] Nov, [facility] [place] [facility] [address] [id number] [place] [address] 7977 Nov, [facility] [place] [facility] [address] [id number] [place] [address] Nov, [facility] [place] [facility] [address] [id number] [place] [address] 0887 Nov, [facility] [place] [facility] [address] [id number] [place] [address] Nov, [facility] [place] [facility] [address] [id number] [place] [address] Oct, [facility] [place] [facility] [address] [id number] [place] [address] 5864 Oct, [facility] [place] [facility] [address] [id number] [place] [address] 1354 Oct, [facility] [place] [facility] [address] [id number] [place] [address] 5874 Oct, [facility] [place] [facility] [address] [id number] [place] [address] 6952 Oct, [facility] [address] [id number] [place] [address] 8067 Oct, [facility] [address] [id number] [place] [address]92 Oct, [facility] [address] [id number] [place] [address] 9995 Oct, [facility] [address] [id number] [place] [address] Sep, [facility] [address] [id number] [place] [address] 69[address] Sep, [facility] [address] [id number] [place] [address] Sep, [facility] [address] [id number] [place] [address]326 Sep, [facility] [address] [id number] [place] [address] August, [facility] [address] [id number] [place] [address] 3564 August, [facility] [address] [id number] [place] [address] 8746 August, [facility] [address] [id number] Jul, [facility] [address] [id number] Jul, [facility] [address] [id number] [place] [address] 7695 Jun, [facility] [address] [id number] [place] [address] 9492 May, [facility] [address] [id number] [place] [address] 3899 May, [facility] [address] [id number] [address] Apr, [facility] [address] [id number] [place] [address] 2691 Feb, [facility] [place] [facility] [address] [id number] [address] 7616 Feb, [facility] [place] [facility] [address] [id number] [place] [address]- 1066 Jan, [facility] [place] [facility] [address] [id number] [address] 8[address] Jan, [facility] [address] [id number] [place] [address] 4826 Jan, [facility] [place] [facility] [address] [id number] [place] [address] 7017 Jan, [facility] [address] [id number] [address] Jan, [facility] [place] [facility] [address] [id number] [place] [address] 0356 Dec, [facility] [address] [id number] [address] Dec, [facility] [address] [id number] [id number] Nov, [facility] [address] [id number] [address] 6[address] Nov, [facility] [place] [facility] [address] [id number] [address] Nov, [facility] [place] [facility] [address] [id number] [place] [address] 77[address] Nov, [facility] [place] [facility] [address] [id number] [address] 1404 August, [facility] [place] [facility] [address] [id number] [place] [address] August, [facility] [place] [facility] [id number] [address] August, [facility] [id number] [address] Jul, [facility] [id number] [address] 9[address] May, [facility] [id number] [address] May, [facility] [id number] [place] [address] May, [facility] [id number] [place] [address] Mar, [facility] [id number] [address] Jan, [facility] [id number] [place] [address] Jan, [facility] [address] [address] 98[address] Oct, [facility] [id number] [place] [address] August, [facility] [address] [address] 58[address] Jan, [facility] [address] [address] Jan, [facility] [address] [address] 50[address] Jan, [facility] [address] [address] 87[address] Jan, IMMUNIZATIONS No Known Immunizations SOCIAL HISTORY Never Assessed REASON FOR VISIT Controlled Med Refill 04/03/17 PLAN OF CARE VITAL SIGNS MEDICATIONS Medication [...]
--- OUTSIDE RECORDS SUMMARY | 2018-02-08 21:28 | XMS REPORT ---
Author Author ROSIO IRBY Organization [facility] Address [address] [place] [address] Care Team Providers Care Motorsports Technician Name Role Phone ROSIO IRBY Unavailable PROBLEMS Type Condition ICD9-CM Code [id number] Code Onset Dates Condition Status SNOMED Code Problem Mood disorder F39 Active 61288000 Problem Hypertension, benign I10 Active 62635708 Problem Obsessive compulsive disorder F42 Active 072053084 Problem Chronic hepatitis C without hepatic coma B18.2 Active 158345823 Problem History of alcohol abuse Z87.898 Active 126833590 Problem Hyperammonemia E72.20 Active 8174434 Problem Allergic rhinitis, unspecified allergic rhinitis type J30.9 Active 87402852 ALLERGIES No Known Allergies SOCIAL HISTORY No smoking Hx information available PLAN OF CARE VITAL SIGNS MEDICATIONS No Known Medications RESULTS Name Result Date Reference Range AMMONIA 2016-05-09 Ammonia, Plasma 19 27-102 LIPID PANEL 2016-05-09 Cholesterol, Total 175 100-199 Triglycerides 181 0-149 HDL Cholesterol 29 >39 VLDL Cholesterol Kirit 36 5-40 LDL Cholesterol Calc 110 0-99 Comment: CMP 2016-05-09 Glucose, Serum 109 65-99 BUN 13 6-24 Creatinine, Serum 1.24 0.76-1.27 eGFR If NonAfricn Am 63 >59 eGFR If Africn Am 73 >59 BUN/Creatinine Ratio 10 9-20 Sodium, Serum 140 134-144 Potassium, Serum 4.5 3.5-5.2 Chloride, Serum 101 96-106 Carbon Dioxide, Total 27 18-29 Calcium, Serum 10.1 8.7-10.2 Protein, Total, Serum 7.4 6.0-8.5 Albumin, Serum 4.4 3.5-5.5 Globulin, Total 3.0 1.5-4.5 A/G Ratio 1.5 1.1-2.5 Bilirubin, Total 0.3 0.0-1.2 Alkaline Phosphatase, S 113 39-117 AST (SGOT) 31 0-40 ALT (SGPT) 21 0-44 CBC 2016-05-09 WBC 8.6 3.4-10.8 RBC 5.10 4.14-5.80 Hemoglobin 16.1 12.6-17.7 Hematocrit 44.9 37.5-51.0 MCV 88 79-97 MCH 31.6 26.6-33.0 MCHC 35.9 31.5-35.7 RDW 13.2 12.3-15.4 Platelets 122 150-379 Neutrophils 56 Lymphs 32 Monocytes 8 Eos 4 Basos 0 Neutrophils (Absolute) 4.8 1.4-7.0 Lymphs (Absolute) 2.8 0.7-3.1 Monocytes(Absolute) 0.7 0.1-0.9 Eos (Absolute) 0.3 0.0-0.4 Baso (Absolute) 0.0 0.0-0.2 Immature Granulocytes 0 Immature Grans (Abs) 0.0 0.0-0.1 PROCEDURES Procedure Date Ordered Related Diagnosis Body [facility] May 09, 2016 GLYCATED HEMOGLOBIN TEST May 09, 2016 VENIPUNCT, ROUTINE* May 09, 2016 IMMUNIZATIONS No Known Immunizations
--- OUTSIDE RECORDS SUMMARY | 2018-02-08 21:29 | XMS REPORT ---
Author Author ROSIO IRBY [facility] Address [address] [place] [address] Care Team Providers Care Business Education Teacher Name Role Phone ROSIO IRBY Unavailable PROBLEMS Type Condition ICD9-CM Code [id number] Code Onset Dates Condition Status SNOMED Code Problem Mood disorder F39 Active 81574101 Problem Hypertension, benign I10 Active 02867230 Problem Obsessive compulsive disorder F42 Active 095111635 Problem Chronic hepatitis C without hepatic coma B18.2 Active 079781340 Problem History of alcohol abuse Z87.898 Active 376471030 Problem Hyperammonemia E72.20 Active 6066910 Problem Allergic rhinitis, unspecified allergic rhinitis type J30.9 Active 02249639 ALLERGIES No Known Allergies SOCIAL HISTORY No smoking Hx information available PLAN OF CARE VITAL SIGNS MEDICATIONS Medication Instructions Dosage Frequency Start Date End Date Duration Status Xifaxan 200 Orally Three times a day TAKE TWO TABLETS 8h 30 Active RESULTS No Results PROCEDURES No Known procedures IMMUNIZATIONS No Known Immunizations
--- OUTSIDE RECORDS SUMMARY | 2018-02-08 21:29 | XMS REPORT ---
Author Author ROSIO IRBY Organization [facility] Address [address] [place] [address] Care Team Providers Care Lens Assistant Name Role Phone ROSIO IRBY Unavailable PROBLEMS Type Condition ICD9-CM Code [id number] Code Onset Dates Condition Status SNOMED Code Problem Mood disorder F39 Active 30440680 Problem Hypertension, benign I10 Active 57302833 Problem Obsessive compulsive disorder F42 Active 479501561 Problem Chronic hepatitis C without hepatic coma B18.2 Active 114834813 Problem History of alcohol abuse Z87.898 Active 207215458 Problem Hyperammonemia E72.20 Active 6495226 Problem Allergic rhinitis, unspecified allergic rhinitis type J30.9 Active 42407372 ALLERGIES No Information SOCIAL HISTORY Never Assessed PLAN OF CARE VITAL SIGNS MEDICATIONS Medication Instructions Dosage Frequency Start Date End Date Duration Status Betamethasone Valerate 0.1 % Externally Once a day 1 application to affected area 24h Jun, Active RESULTS No Results PROCEDURES No Known [...]
--- OUTSIDE RECORDS SUMMARY | 2018-02-08 21:30 | XMS REPORT ---
Author Author ROSIO IRBY [facility] Address [address] [place] [address] Care Team Providers Care Residential Collections Name Role Phone MAHAMED ROSIO Unavailable PROBLEMS Type Condition ICD9-CM Code [id number] Code Onset Dates Condition Status SNOMED Code Problem Mood disorder F39 Active 85263101 Problem Hypertension, benign I10 Active 76316034 Problem Obsessive compulsive disorder F42 Active 902730006 Problem Chronic hepatitis C without hepatic coma B18.2 Active 821070534 Problem History of alcohol abuse Z87.898 Active 710328694 Problem Hyperammonemia E72.20 Active 2701527 Problem Allergic rhinitis, unspecified allergic rhinitis type J30.9 Active 79728794 ALLERGIES Substance Reaction Event Type Date Status N.K.D.A. Unknown Non Drug Allergy Apr, Unknown SOCIAL HISTORY No smoking Hx information available PLAN OF CARE VITAL SIGNS Height 72 in 2016-05-08 Weight 250.6 lbs 2016-05-08 Temperature 98.1 degrees Fahrenheit 2016-05-08 Heart Rate 62 bpm 2016-05-08 Respiratory Rate 18 2016-05-08 BMI 33.98 kg/m2 2016-05-08 Blood pressure systolic 130 mmHg 2016-05-08 Blood pressure diastolic 90 mmHg 2016-05-08 MEDICATIONS Medication Instructions Dosage Frequency Start Date End Date Duration Status Centrum Adults Active Flaxseed (Linseed) 1200 MG Orally One a day Active Hydrochlorothiazide 25 MG TAKE 1 TABLET EVERY DAY 90 Active Aspirin by Oral route 81mg daily. 12 May, 2012 Active Albuterol Sulfate HFA 108 (90 Base) MCG/ACT Inhalation every 4 hrs 2 puffs as needed 4h Mar, Active Propranolol HCl 40 MG TAKE 1 TABLET THREE TIMES DAILY 90 Active Mirtazapine 15 MG TAKE 1 TABLET AT BEDTIME 90 Active Gabapentin 600 MG TAKE 1/2 TABLET EVERY MORNING AND AFTERNOON AND TAKE 1 TABLET AT BEDTIME 90 Active Triamcinolone Acetonide 0.1 % Externally Twice a day 1 application to affected area 12h 11 Nov, 2015 Active Fish Oil 1200 MG Orally Once a day 1 capsule 24h Active Xanax 2 MG Orally 4 times a day 1 tablet 6h 25 Jun, 2014 28 days Active Potassium Chloride ER 10 MEQ TAKE 1 CAPSULE EVERY DAY 90 Active Lexapro 20 MG TAKE 1 TABLET EVERY DAY 30 Active Xifaxan 200 Orally Three times a day TAKE TWO TABLETS 8h 30 Active RESULTS No Results PROCEDURES Procedure Date Ordered Related Diagnosis Body Site [facility] VISIT ESTABLISHED PATIENT May 08, 2016 Office Visit, Est Pt., Level 3 May 08, 2016 IMMUNIZATIONS No Known Immunizations
--- OUTSIDE RECORDS SUMMARY | 2018-02-08 21:32 | XMS REPORT ---
Author Author ROSIO IRBY Organization [facility] Address [address] [place] [address] Care Team Providers Care Preassembler And Inspector Name Role Phone ROSIO IRBY Unavailable PROBLEMS Type Condition ICD9-CM Code ASF41-AE Code Onset Dates Condition Status SNOMED Code Problem History of alcohol abuse Z87.898 Active 852155758 Problem Mood disorder F39 Active 33489085 Problem Generalized anxiety disorder F41.1 Active 71956241 Problem Hypertension, benign I10 Active 31566927 Problem Allergic rhinitis, unspecified allergic rhinitis type J30.9 Active 74305808 Problem Chronic hepatitis C without hepatic coma B18.2 Active 657158828 Problem Obsessive compulsive disorder F42 Active 492169276 Problem Hyperammonemia E72.20 Active 1516311 ALLERGIES No Information ENCOUNTERS Encounter Location Date Diagnosis [facility] [id number] [place] [address] 88299- 9046 August, Chronic hepatitis C without hepatic coma B18.2 [facility] [facility] [id number] [place] [address] 46536- 4114 Jul, Chronic hepatitis C without hepatic coma B18.2 [place] [facility] [id number] [place] [address] 27640- 7413 Jul, Generalized anxiety disorder F41.1 ; Mood disorder F39 and History of hepatitis C Z86.19 [facility] [id number] [place] [address] 52639- 1219 Jul, Chronic hepatitis C without hepatic coma B18.2 [facility] [id number] [place] [address] 45781- 5246 Jun, Chronic hepatitis C without hepatic coma B18.2 [place] [id number] [place] [address] 92497- 2512 Jun, [facility] [id number] [place] [address] 06116- 0371 May, Chronic hepatitis C without hepatic coma B18.2 [facility] [id number] [place] [address] 06466- 7903 May, Hypertension, benign I10 [facility] [id number] [place] [address] 72562- 9028 Apr, Chronic hepatitis C without hepatic coma B18.2 [facility] [id number] [place] [address] 77145- 1398 Apr, Hypertension, benign I10 [place] [id number] [place] [address] 13530- 6532 Mar, Chronic hepatitis C without hepatic coma B18.2 [place] [id number] [place] [address] 30585- 1793 Mar, Hypertension, benign I10 [facility] [id number] [place] [address] 40297- 3945 Mar, Hypertension, benign I10 ; Encounter for immunization Z23 and Strain of right Achilles tendon, initial encounter S86.011A [place] [id number] [place] [address] 98470- 0801 Feb, Chronic hepatitis C without hepatic coma B18.2 [facility] [id number] [place] [address] 01463- 0566 Jan, Chronic hepatitis C without hepatic coma B18.2 [facility] [id number] [place] [address] 01309 -8181 Jan, Toe pain, right M79.674 and Cellulitis of foot, right L03.115 [facility] [id number] [place] [address] 49910- 6407 Dec, Chronic hepatitis C without hepatic coma B18.2 [facility] [id number] [place] [address] 62379- 0581 Nov, Chronic hepatitis C without hepatic coma B18.2 and Eczema of both hands L30.9 [facility] [id number] [place] [address] 02057- 0483 Nov, [facility] [id number] [place] [address] 69105- 8611 Oct, [facility] [id number] [place] [address] 90611- 7332 Sep, [facility] [id number] [place] [address] 55222- 5375 August, [facility] [id number] [place] [address] 15794- 2237 August, [facility] [id number] [place] [address] 62984- 9449 Jul, [facility] [id number] [place] [address] 63803- 3160 Jul, [facility] [id number] [place] [address] 86575- 3744 Jun, [facility] [id number] [place] [address] 60621- 1329 Jun, [facility] [id number] [place] [address] 78169- 7619 May, [facility] [id number] [place] [address] 50871- 7340 Apr, Chronic hepatitis C without hepatic coma B18.2 ; Hyperglycemia R73.9 and Hypertension, benign I10 [facility] [id number] [place] [address] 62604- 0441 Apr, Chronic hepatitis C without hepatic coma B18.2 ; Mood disorder F39 ; Hypertension, benign I10 and Hyperglycemia R73.9 [facility] [address], [place] [address]- 5740 Apr, [facility] [address] [place] [address]- 5999 Apr, [facility] [address], [place] [address]- 9659 Apr, [facility] [address], [place] [address]- 8561 Feb, [facility] [id number] [place] [address] 99109- 8641 Feb, [facility] [id number] [place] [address] 05254- 3335 Feb, [facility] [id number] [place] [address] 01207- 1264 Feb, [facility] [id number] [place] [address] 96886- 2580 Jan, [facility] [id number] [place] [address] 82221- 6491 Jan, Chronic hepatitis C without hepatic coma B18.2 ; Mood disorder F39 ; Encounter for immunization Z23 and Chronic viral hepatitis C B18.2 [facility] [address], [place] [address]- 5465 Jan, [facility] [address], [place] [address]- 3983 Jan, [facility] [address], [place] [address]- 4138 Dec, [facility] [address], [place] [address]- 7650 Dec, [facility] [id number] [place] [address] 14919- 6355 Nov, [facility] [address], [place] [address]- 9415 Nov, Weakness of both legs M62.81 [facility] [id number] [place] [address] 08486- 3328 Nov, [facility] [id number] [place] [address] 69241- 2039 Nov, [facility] [id number] [place] [address] 23585- 5394 Nov, [facility] [id number] [place] [address] 67069- 7263 Nov, Eczema, unspecified type L30.9 [facility] [id number] [place] [address] 98040- 4187 Nov, [facility] [id number] [place] [address] 66242- 8782 Nov, Eczema, unspecified type L30.9 ; Cessation of tobacco use in previous 12 months Z87.891 and Weakness of both legs M62.81 [facility] [id number] [place] [address] 41910- 1086 Oct, [facility] [id number] [place] [address] 93345- 9776 Oct, [facility] [id number] [place] [address] 99478- 8957 Oct, [facility] [id number] [place] [address] 06770- 8214 Oct, Chronic viral hepatitis C B18.2 [facility] [id number] [place] [address] 53882- 4564 Sep, [facility] [id number] [place] [address] 92677- 9140 Sep, 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 and Generalized anxiety disorder F41.1 [facility] [id number] [place] [address] 35611- 7219 Sep, [facility] [id number] [place] [address] 76467- 9399 August, [facility] [address], [place] [address]- 5596 August, Hyperammonemia E72.20 [facility] [id number] [place] [address] 2546 August, Hyperammonemia E72.20 [facility] [id number] [place] [address] 2546 August, Hyperammonemia E72.20 and Chronic hepatitis C without hepatic coma B18.2 [facility] [id number] [place] [address] 2546 August, Chronic viral hepatitis C B18.2 [facility] [id number] [place] [address], [place] [address]- 9656 August, [facility] [id number] [place] [address]- 9407 Jul, Chronic viral hepatitis C B18.2 and Hyperammonemia E72.20 [facility] [address], [place] [address] 2546 Jul, Chronic viral hepatitis C B18.2 [facility] [id number] [place] [address] 2546 Jul, [facility] [id number] [place] [address] 2546 Jul, [facility] [address], [place] [address] 2546 Jun, [facility] [address], [place] [address] 2546 Jun, Chronic viral hepatitis C B18.2 and Hyperammonemia E72.20 [facility] [id number] [place] [address] 2546 Jun, [facility] [id number], [place] [address]- 2546 18 Jun, 2015 [facility] [address], [place] [address]- 0156 16 Jun, 2015 Chronic viral hepatitis C B18.2 [facility] [id number] [place] [address] 61483- 1916 10 Jun, 2015 [facility] [id number] [place] [address] 70751- 9426 07 Jun, 2015 Chronic viral hepatitis C B18.2 [facility] [id number] [place] [address] 54947- 2026 17 May, 2015 Hepatitis C, chronic B18.2 and Chronic viral hepatitis C B18.2 [facility] [id number] [place] [address] 43777- 9399 May, [facility] [id number] [place] [address] 16409- 0488 Apr, [facility] [id number] [place] [address] 28675- 2150 Apr, Chronic viral hepatitis C B18.2 and Hyperammonemia E72.20 [facility] [id number] [place] [address] 13379- 0774 Apr, Chronic viral hepatitis C B18.2 [facility] [address], [place] [address]- 2750 Apr, Hyperammonemia E72.20 [facility] [id number] [place] [address] 44684- 5461 Apr, [facility] [address], [place] [address]- 3428 Apr, [facility] [id number] [place] [address] 81713- 1256 Apr, Chronic hepatitis C without hepatic coma B18.2 ; Hyperammonemia E72.20 and Chronic viral hepatitis C B18.2 [facility] [id number] [place] [address] 81539- 4172 Mar, Shortness of breath R06.02 [facility] [id number] [place] [address] 21036- 7333 Mar, Mood disorder F39 and Major depressive disorder, recurrent episode, unspecified 296.30 [facility] [id number] [place] [address] 82050- 1303 Mar, [facility] [address] 46369- 3415 Mar, [facility] [id number] [place] [address] 31876- 2622 15 Mar, 2015 [facility] [address] 92921 -6684 Mar, Seasonal allergies J30.2 ; Shortness of breath R06.02 and Cough R05 [facility] [address] 54143- 5352 Mar, Hyperammonemia E72.20 ; Mood disorder F39 and History of alcohol abuse Z87.898 [place] [id number] [place] [address] 56143- 4723 Mar, Hyperammonemia E72.20 [facility] [id number] [place] [address] 51027- 3841 Mar, [facility] [id number] [place] [address] 13393- 4470 Feb, [facility] [id number] [place] [address] 39179- 8485 Feb, [facility] [id number] [place] [address] 04043- 2869 Feb, Hyperammonemia E72.20 [facility] [id number] [place] [address] 21975- 9320 Feb, [facility] [id number] [place] [address] 41295- 7774 Feb, [facility] [address], [place] [address]- 4428 Feb, [facility] [id number] [place] [address] 37628- 9487 Feb, [facility] [id number] [place] [address] 24397- 9625 Feb, Chronic viral hepatitis C B18.2 [facility] [id number] [place] [address] 57348- 3650 Feb, Chronic viral hepatitis C B18.2 [facility] [id number] [place] [address] 86983- 6541 Feb, [facility] [id number] [place] [address] 16507- 6951 Feb, Chronic viral hepatitis C B18.2 and Confusion R41.0 [facility] [id number] [place] [address] 07559- 0313 Feb, [facility] [id number] [place] [address] 05437- 2641 Jan, [facility] [id number] [place] [address] 81879- 1825 Jan, Confusion R41.0 [facility] [id number] [place] [address] 74070- 9568 Jan, [facility] [id number] [place] [address] 53523- 6182 Jan, [facility] [id number] [place] [address] 31248- 0884 Jan, [facility] [id number] [place] [address] 37783- 1560 Jan, [facility] [address], [place] [address]- 2517 Jan, Chronic viral hepatitis C B18.2 and 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 [facility] [id number] [place] [address] 84534- 8752 Jan, [facility] [id number] [place] [address] 60576- 5138 Jan, [facility] [id number] [place] [address] 68640- 6658 Jan, [facility] [address] 84576- 2861 Jan, [facility] [id number] [place] [address] 20660- 3468 Jan, Chronic viral hepatitis C B18.2 [facility] [id number] [place] [address] 58836- 9906 Jan, [facility] [address] 40564- 5981 Jan, Back pain at L4-L5 level M54.5 and Confusion R41.0 [facility] [id number] [place] [address] 55887- 1164 Jan, [facility] [id number] [place] [address] 66935- 9198 30 Dec, 2014 Chronic viral hepatitis C B18.2 and Flu vaccine need V04.81 [facility] [id number] [place] [address] 94173- 2299 Dec, Chronic viral hepatitis C B18.2 [facility] [id number] [place] [address] 22501- 0049 Dec, [facility] [id number] [place] [address] 99540- 0382 Dec, Polyuria 788.42 [facility] [id number] [place] [address] 50961- 0253 Dec, Polyuria 788.42 ; Polydipsia 783.5 ; Dizziness 780.4 and Hepatitis C, chronic 070.54 [facility] [address], [place] [address]- 0952 Dec, Major depressive disorder, recurrent episode, unspecified 296.30 and Generalized anxiety disorder 300.02 [facility] [address], [place] [address]- 9142 Nov, [facility] [id number] [place] [address] 07395- 9965 Nov, [facility] [id number] [place] [address] 86094- 4922 Nov, [facility] [id number] [place] [address] 12739- 1645 Oct, [facility] [id number] [place] [address]- 3104 Sep, [facility] [id number] [place] [address] 48163- 8260 August, Obsessive-compulsive disorders 300.3 ; Generalized anxiety disorder 300.02 and Major depressive disorder, recurrent episode, unspecified 296.30 [facility] [id number] [place] [address] 89384- 5917 August, Chronic hepatitis C without mention of hepatic coma 070.54 ; Hypertension 401.9 and Seasonal allergies 477.9 [facility] [address], [place] [address]- 5467 Jul, [facility] [id number] [place] [address]- 6944 Jul, [facility] [address], [place] [address]- 6767 Jun, [facility] [address], [place] [address]- 1862 Jun, [facility] [address], [place] [address]- 7866 May, [facility] [place] [facility] [address] [id number] [place] [address]- 8990 May, [facility] [place] [facility] [address] [id number] [place] [address]- 1266 May, [facility] [place] [facility] [address] [id number] [place] [address]- 2546 May, [facility] [place] [facility] [address] [id number] [place] [address]- 7769 Apr, [facility] [place] [facility] [address] [id number] [place] [address]- 9111 Apr, [facility] [place] [facility] [address] [id number] [place] [address]- 9312 Apr, [facility] [place] [facility] [address] [id number] [place] [address]- 2440 Apr, [facility] [place] [facility] [address] [id number] [place] [address]- 7392 Apr, [facility] [place] [facility] [address] [id number] [place] [address]- 7860 Apr, [facility] [place] [facility] [address] [id number] [place] [address]- 5678 Mar, [facility] [place] [facility] [address] [id number] [place] [address]- 6487 Mar, [facility] [place] [facility] [address] [id number] [place] [address]- 4920 24 Mar, 2014 [facility] [place] [facility] [address] [id number] [place] [address]- 8520 24 Mar, 2014 [facility] [place] [facility] [address] [id number] [place] [address]- 7306 Mar, [facility] [place] [facility] [address] [id number] [place] [address]- 5956 17 Mar, 2014 [facility] [place] [facility] [address] [id number] [place] [address]- 3266 Mar, [facility] [place] [facility] [address] [id number] [place] [address]- 2092 Mar, [facility] [place] [facility] [address] [id number] [place] 8315 Mar, [facility] [place] [facility] [address] [id number] [place] 8495 Feb, [facility] [place] [facility] [address] [id number] [place] [address]- 7440 Feb, [facility] [place] [facility] [address] [id number] [place] [address]- 6027 Feb, [facility] [place] [facility] [address] [id number] [place] [address]- 9351 Feb, [facility] [place] [facility] [address] [id number] [place] [address]- 7004 Feb, [facility] [place] [facility] [address] [id number] [place] [address]- 5391 Jan, [facility] [place] [facility] [address] [id number] [place] [address]- 2610 Jan, [facility] [place] [facility] [address] [id number] [place] [address]- 3586 Jan, [facility] [place] [facility] [address] [id number] [address]- 3423 Jan, [facility] [place] [facility] [address] [id number], [place] [address]- 2865 Jan, [facility] [place] [facility] [address] [id number] [place] [address]- 0361 Jan, [facility] [place] [facility] [address] [id number] [place] 1079 Jan, [facility] [place] [facility] [address] [id number] [place] [address]- 3771 Jan, [facility] [place] [facility] [address] [id number] [place] [address] Jan, [facility] [place] [facility] [address] [id number] [place] [address] Nov, [facility] [place] [facility] [address] [id number] [place] [address] Nov, [facility] [place] [facility] [address] [id number] [place] [address] Nov, [facility] [place] [facility] [address] [id number] [place] [address] Oct, [facility] [place] [facility] [address] [id number] [place] [address] Oct, [facility] [place] [facility] [address] [id number] [place] [address] Oct, [facility] [place] [facility] [address] [id number] [place] [address] Oct, [facility] [place] [facility] [address] [id number] [place] [address] Sep, [facility] [place] [facility] [address] [id number] [place] [address] Sep, [facility] [place] [facility] [address] [id number] [place] [address] Sep, [facility] [place] [facility] [address] [id number] [place] [address] Sep, [facility] [place] [facility] [address] [id number] [place] [address] Sep, [facility] [place] [facility] [address] [id number] [place] [address] Sep, [facility] [place] [facility] [address] [id number] [place] [address] August, [facility] [place] [facility] [address] [id number] [place] [address] August, [facility] [place] [facility] [address] [id number] [place] [address] Jul, [facility] [place] [facility] [address] [id number] [place] [address] Jul, [facility] [place] [facility] [address] [id number] [place] [address] Jul, [facility] [place] [facility] [address] [id number] [place] [address] Jul, [facility] [place] [facility] [address] [id number] [place] [address] Jul, [facility] [place] [facility] [address] [id number] [place] [address] Jul[facility] [facility] [address] [id number] [place] [address] Jul, [facility] [facility] [address] [id number] [place] [address] Jul, [facility] [place] [facility] [address] [id number] [place] [address] Jul, [facility] [place] [facility] [address] [id number] [place] [address] Jul, [facility] [place] [facility] [address] [id number] [place] [address] Jun, [facility] [place] [facility] [address] [id number] [place] [address] Jun, [facility] [place] [facility] [address] [id number] [place] [address] Jun, [facility] [place] [facility] [address] [id number] [place] [address] Jun, [facility] [place] [facility] [address] [id number] [place] [address] May, [facility] [place] [facility] [address] [id number] [place] [address] May, 2013 [facility] [address] [id number] [place] [address] May, [facility] [place] [facility] [address] [id number] [place] [address] 12 May, 2013 [facility] [place] [facility] [address] [id number] [place] [address] 10 May, 2013 [facility] [place] [facility] [address] [id number] [place] [address]99 10 May, 2013 [facility] [address] [id number] [place] [address] 16 Mar, 2013 [facility] [place] [facility] [address] [id number] [place] [address] 7826 16 Mar, 2013 [facility] [address] [id number] [place] [address] 16 Mar, 2013 [facility] [place] [facility] [address] [id number] [place] [address] Mar, [facility] [place] [facility] [address] [id number] [place] [address] 160[address] Mar, [facility] [place] [facility] [address] [facility] [id number] [place] [address]6 16 Mar, 2013 [facility] [place] [facility] [address] [id number] [place] [address] Feb, [facility] [place] [facility] [address] [id number] [place] [address] Feb, [facility] [place] [facility] [address] [id number] [place] [address] Feb, [facility] [place] [facility] [address] [id number] [place] [address] Feb, [facility] [place] [facility] [address] [facility] [id number] [place] [address] 137[address] Feb, [facility] [place] [facility] [address] [id number] [place] [address] 12 Feb, 2013 [facility] [place] [facility] [address] [id number] [place] [address]- 89[address] 07 Feb, 2013 [facility] [place] [facility] [address] [id number] [place] [address]- 9383 07 Feb, 2013 [facility] [place] [facility] [address] [id number] [place] [address] 18 Jan, 2013 [facility] [place] [facility] [address] [id number] [place] [address] 6826 18 Jan, 2013 [facility] [place] [facility] [address] [id number] [place] [address]35 17 Jan, 2013 [facility] [place] [facility] [address] [id number] [place] [address] 16 Jan, 2013 [facility] [place] [facility] [address] [id number] [place] [address] 9481 16 Jan, 2013 [facility] [place] [facility] [address] [id number] [place] [address] 3770 14 Jan, 2013 [facility] [place] [facility] [address] [id number] [place] [address]160 14 Jan, 2013 [facility] [place] [facility] [address] [id number] [place] [address] 4066 11 Jan, 2013 [facility] [place] [facility] [address] [id number] [place] [address]- 5661 11 Jan, 2013 [facility] [place] [facility] [address] [id number] [place] [address]- 9121 10 Jan, 2013 [facility] [place] [facility] [address] [id number] [place] [address] 9887 27 Dec, 2012 [facility] [place] [facility] [address] [id number] [place] [address] 1720 18 Dec, 2012 [facility] [place] [facility] [address] [id number] [place] [address] Dec, [facility] [place] [facility] [address] [id number] [place] [address] 7[address] Nov, [facility] [place] [facility] [address] [id number] [place] [address] Nov, [facility] [place] [facility] [address] [id number] [place] [address]195 Nov, [facility] [place] [facility] [address] [id number] [place] [address] 1327 Nov, [facility] [place] [facility] [address] [id number] [place] [address] 8038 Nov, [facility] [place] [facility] [address] [id number] [place] [address] 3135 Nov, [facility] [place] [facility] [address] [id number] [place] [address]- [address] Nov, [facility] [place] [facility] [address] [id number] [place] [address]115 Nov, [facility] [place] [facility] [address] [id number] [place] [address] 5638 Nov, [facility] [place] [facility] [address] [id number] [place] [address]- [address]71 Nov, [facility] [place] [facility] [address] [id number] [place] [address] 5720 Oct, [facility] [place] [facility] [address] [id number] [place] [address] 2182 Oct, [facility] [place] [facility] [address] [id number] [place] [address] 8145 Oct, [facility] [place] [facility] [address] [id number] [place] [address] 2645 Oct, [facility] [place] [facility] [address] [id number] [place] [address]- 8818 Oct, [facility] [place] [facility] [address] [id number] [place] [address] 2681 Oct, [facility] [address] [id number] [place] [address] 4724 Oct, [facility] [address] [id number] [place] [address] Oct, [facility] [address] [id number] [place] [address] 6507 Sep, [facility] [address] [id number] [place] [address] 2979 Sep, [facility] [address] [id number] [place] [address] 0073 Sep, [facility] [address] [id number] [place] [address] 8458 Sep, [facility] [address] [id number] [place] [address] 62[address] August, [facility] [address] [id number] [place] [address] 4210 August, [facility] [address] [id number] [place] [address]703 August, [facility] [address] [place] [id number] Jul, [facility] [address] [facility] [id number] Jul, [facility] [address] [id number] [place] [address]117 Jun, [facility] [address] [id number] [place] [address] 7307 May, [facility] [place] [facility] [address] [id number] [place] [address]- 0015 May, [facility] [place] [facility] [address] [id number] [place] [address] 3730 Apr, [facility] [address] [id number], [place] [address] 2546 Feb, [facility] [place] [facility] [address] [id number] [place] [address]- 2546 Feb, [facility] [place] [facility] [address] [id number], [place] [address] 73[address] Jan, [facility] [place] [facility] [address] [id number] [place] [address] 2546 Jan, [facility] [place] [facility] [address] [id number], [place] [address] 2546 Jan, [facility] [place] [facility] [address] [id number] [place] [address]- 0886 Jan, [facility] [place] [facility] [address] [id number] [place] [address] 2546 Jan, [facility] [address] [id number], [place] [address] Dec, [facility] [place] [facility] [address] [id number] [place] [address]- [address]706 Dec, [facility] [address] [id number] [id number] Nov, [facility] [place] [facility] [address] [id number], [place] [address] Nov, [facility] [place] [facility] [address] [id number], [place] [address]- [address]396 Nov, [facility] [place] [facility] [address] [id number], [place] [address] 2546 Nov, [facility] [place] [facility] [address] [id number], [place] [address] 9756 August, [facility] [place] [facility] [address] [id number], [place] [address]- 4476 August, [facility] [place] [facility] [address] [id number], [place] [address] 2546 August, [facility] [place] [facility] [id number], [place] [address] Jul, [facility] [id number], [place] [address] May, [facility] [id number], [place] [address]- [address]05 May, [facility] [id number] [place] [address] May, [facility] [id number] [place] [address]- 6239 Mar, [facility] [id number] [place] [address]- 6316 Jan, [facility] [id number] [place] [address]- 9254 Jan, [facility] [id number] [place] [address]- 0934 Oct, [facility] [id number], [place] [address]- 8290 August, [facility] [id number] [place] [address]- 6091 Jan, [facility] [id number], [place] [address]- 9046 Jan, [facility] [id number], [place] [address]- 8013 Jan, [facility] [id number], [place] [address] 6160 Jan, IMMUNIZATIONS No Known Immunizations SOCIAL HISTORY Never Assessed REASON FOR VISIT Lab (walk-in) PLAN OF CARE VITAL SIGNS MEDICATIONS Unknown Medications RESULTS No Results PROCEDURES Procedure Date Ordered Result Body Site LAB NOT BILLED BY [facility] Mar 16, 2017 VENIPUNCT, ROUTINE* Mar 16, 2017 INSTRUCTIONS MEDICATIONS ADMINISTERED No Known Medications [...]
--- OUTSIDE RECORDS SUMMARY | 2018-02-08 21:34 | XMS REPORT ---
Author Author ROSIO IRBY Organization [facility] Address [address] [place] [address] Care Team Providers Care Clinical Radiologist Name Role Phone ROSIO IRBY Unavailable PROBLEMS Type Condition ICD9-CM Code [id number] Code Onset Dates Condition Status SNOMED Code Problem Mood disorder F39 Active 38868941 Problem Hypertension, benign I10 Active 45592217 Problem Obsessive compulsive disorder F42 Active 605375401 Problem Chronic hepatitis C without hepatic coma B18.2 Active 142833714 Problem History of alcohol abuse Z87.898 Active 343947191 Problem Hyperammonemia E72.20 Active 5181650 Problem Allergic rhinitis, unspecified allergic rhinitis type J30.9 Active 33735356 ALLERGIES No Information SOCIAL HISTORY Never Assessed [...]
--- OUTSIDE RECORDS SUMMARY | 2018-02-08 21:34 | XMS REPORT ---
Author Author ROSIO IRBY Organization [facility] Address [address] [place] [address] Care Team Providers Care Oral Pathologist Name Role Phone ROSIO IRBY Unavailable PROBLEMS Type Condition ICD9-CM Code MOA26-FM Code Onset Dates Condition Status SNOMED Code Problem Mood disorder F39 Active 62365637 Problem Hypertension, benign I10 Active 74603397 Problem Obsessive compulsive disorder F42 Active 355085614 Problem Chronic hepatitis C without hepatic coma B18.2 Active 817114335 Problem History of alcohol abuse Z87.898 Active 937658314 Problem Hyperammonemia E72.20 Active 8563949 Problem Allergic rhinitis, unspecified allergic rhinitis type J30.9 Active 93512835 ALLERGIES No Information ENCOUNTERS Encounter Location Date Diagnosis [facility] [id number] [place] [address] 47269- 5266 Jul, [facility] [address] 98878- 0600 Jun, Chronic hepatitis C without hepatic coma B18.2 [facility] [id number] [place] [address] 46302- 3062 Jun, [facility] [id number] [place] [address] 93637- 3699 May, Chronic hepatitis C without hepatic coma B18.2 [facility] [id number] [place] [address] 71998- 7617 May, Hypertension, benign I10 [facility] [id number] [place] [address] 57759- 4694 Apr, Chronic hepatitis C without hepatic coma B18.2 [facility] [address] 10732- 7538 Apr, Hypertension, benign I10 [facility] [id number] [place] [address] 20646- 0024 Mar, Chronic hepatitis C without hepatic coma B18.2 [facility] [id number] [place] [address] 69628- 8946 Mar, Hypertension, benign I10 [facility] [address] 86092- 6570 Mar, Encounter for immunization Z23 ; Hypertension, benign I10 and Strain of right Achilles tendon, initial encounter S86.011A [facility] [id number] [place] [address] 46827- 7768 Feb, Chronic hepatitis C without hepatic coma B18.2 [facility] [id number] [place] [address] 73552- 9374 Jan, Chronic hepatitis C without hepatic coma B18.2 [facility] [id number] [place] [address] 30435 -8207 Jan, Toe pain, right M79.674 and Cellulitis of foot, right L03.115 [facility] [id number] [place] [address] 88574- 1581 Dec, Chronic hepatitis C without hepatic coma B18.2 [facility] [id number] [place] [address] 16869- 4245 Nov, Chronic hepatitis C without hepatic coma B18.2 and Eczema of both hands L30.9 [facility] [id number] [place] [address] 90793- 9657 Nov, [facility] [id number] [place] [address] 66028- 5975 Oct, [facility] [id number] [place] [address] 96677- 1568 Sep, [facility] [id number] [place] [address] 47318- 2652 August, [facility] [address] [facility] [id number] [place] [address]- 7217 August, [facility] [id number] [place] [address]- 6362 Jul, [facility] [id number] [place] [address]- 9484 Jul, [facility] [id number] [place] [address]- 6313 Jun, [facility] [id number] [place] [address]- 6592 Jun, [facility] [id number] [place] [address]- 4507 May, [facility] [id number] [place] [address]- 1777 Apr, Chronic hepatitis C without hepatic coma B18.2 ; Hyperglycemia R73.9 and Hypertension, benign I10 [facility] [id number] [place] [address]- 4454 Apr, Chronic hepatitis C without hepatic coma B18.2 ; Mood disorder F39 ; Hypertension, benign I10 and Hyperglycemia R73.9 [facility] [id number] [place] [address]- 2739 Apr, [facility] [id number] [place] [address]- 7360 Apr, [facility] [id number] [place] [address]- 5996 Apr, [facility] [id number] [place] [address]- 4694 Feb, [facility] [id number] [place] [address]- 2472 Feb, [facility] [id number] [place] [address]- 2476 Feb, [facility] [id number] [address]- 6179 Feb, [facility] [id number] [place] [address], [place] [address]- 6340 Jan, [facility] [id number] [place] [address]- 0962 Jan, Chronic hepatitis C without hepatic coma B18.2 ; Mood disorder F39 ; Encounter for immunization Z23 and Chronic viral hepatitis C B18.2 [facility] [id number] [place] [address]- 2323 Jan, [facility] [id number] [place] [address], [place] [address]- 4427 Jan, [facility] [id number] [place] [address], [place] [address]- 5745 Dec, [facility] [id number] [place] [address], [place] [address]- 3588 Dec, [facility] [id number] [place] [address]- 7219 Nov, [facility] [id number] [place] [address], [place] [address]- 0797 Nov, Weakness of both legs M62.81 [facility] [id number] [place] [address]- 6549 Nov, [facility] [id number] [address]- 7137 Nov, [facility] [id number] [place] [address]- 254 Nov, [facility] [id number] [place] [address]- 2545 Nov, Eczema, unspecified type L30.9 [facility] [id number] [place] [address]- 2547 Nov, [facility] [id number] [place] [address] 81255- 5537 Nov, Eczema, unspecified type L30.9 ; Cessation of tobacco use in previous 12 months Z87.891 and Weakness of both legs M62.81 [facility] [id number] [place] [address] 85972- 3040 Oct, [facility] [id number] [place] [address] 03206- 6459 Oct, [facility] [id number] [place] [address] 59931- 4136 Oct, [place] [address] 94660- 4626 Oct, Chronic viral hepatitis C B18.2 [facility] [id number] [place] [address] 74532- 5524 Sep, [facility] [id number] [place] [address] 69793- 9445 Sep, 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 and Generalized anxiety disorder F41.1 [facility] [id number] [place] [address] 07152- 8203 Sep, [address] [id number] [place] [address] 39408- 9992 August, [facility] [id number] [place] [address] 53003- 0174 August, Hyperammonemia E72.20 [facility] [id number] [place] [address] 23602- 7299 August, Hyperammonemia E72.20 [place] [id number] [place] [address] 25969- 8805 August, Hyperammonemia E72.20 and Chronic hepatitis C without hepatic coma B18.2 [address] [id number] [place] [address] 97710- 9344 August, Chronic viral hepatitis C B18.2 [facility] [id number] [place] [address] 2546 August, [facility] [id number] [place] [address] 2546 Jul, Chronic viral hepatitis C B18.2 and Hyperammonemia E72.20 [facility] [id number] [place] [address]- 0366 Jul, Chronic viral hepatitis C B18.2 [facility] [id number] [place] [address]- 7486 Jul, [facility] [id number] [place] [address]- 5436 Jul, [facility] [id number] [place] [address]- 9295 Jun, [facility] [id number] [place] [address]- 4654 Jun, Chronic viral hepatitis C B18.2 and Hyperammonemia E72.20 [facility] [id number] [place] [address]- 7776 Jun, [facility] [id number] [place] [address]- 3406 18 Jun, 2015 [facility] [id number] [place] [address]- 4656 16 Jun, 2015 Chronic viral hepatitis C B18.2 [facility] [id number] [place] [address] 2546 10 Jun, 2015 [facility] [id number] [place] [address] 2546 07 Jun, 2015 Chronic viral hepatitis C B18.2 [facility] [id number]- 9486 17 May, 2015 Chronic viral hepatitis C B18.2 and Hepatitis C, chronic B18.2 [facility] [id number] [place] [address] 62497- 7898 15 May, 2015 [facility] [id number] [place] [address] 66788- 2362 Apr, [facility] [id number] [place] [address] 80304- 8301 Apr, Chronic viral hepatitis C B18.2 and Hyperammonemia E72.20 [facility] [id number] [place] [address] 19378- 0598 Apr, Chronic viral hepatitis C B18.2 [facility] [id number] [place] [address] 27949- 7191 Apr, Hyperammonemia E72.20 [facility] [id number] [place] [address] 22672- 8809 Apr, [facility] [id number] [place] [address] 67382- 5704 Apr, [facility] [id number] [place] [address] 39225- 4526 Apr, Chronic hepatitis C without hepatic coma B18.2 ; Chronic viral hepatitis C B18.2 and Hyperammonemia E72.20 [facility] [id number] [place] [address] 13531- 1380 Mar, Shortness of breath R06.02 [facility] [id number] [place] [address] 34501- 6543 Mar, Mood disorder F39 and Major depressive disorder, recurrent episode, unspecified 296.30 [facility] [id number] [place] [address] 07660- 8813 Mar, [facility] [id number] [place] [address] 28225- 5098 Mar, [facility] [id number] [place] [address] 27345- 0772 Mar, [facility] [id number] [place] [address] 99789 -7314 Mar, Seasonal allergies J30.2 ; Shortness of breath R06.02 and Cough R05 [facility] [id number] [place] [address] 73573- 4819 Mar, Hyperammonemia E72.20 ; Mood disorder F39 and History of alcohol abuse Z87.898 [facility] [id number] [place] [address] 80123- 6864 Mar, Hyperammonemia E72.20 [facility] [address] 06439- 9547 Mar, [facility] [id number] [place] [address] 23467- 8614 Feb, [facility] [address] 45832- 0862 Feb, [facility] [id number] [place] [address] 69219- 9323 Feb, Hyperammonemia E72.20 [facility] [id number] [place] [address] 40823- 6179 Feb, [facility] [id number] [place] [address] 95953- 5568 Feb, [facility] [id number] [place] [address] 98747- 5278 Feb, [facility] [id number] [place] [address] 99889- 2204 Feb, [facility] [address] 18727- 0591 Feb, Chronic viral hepatitis C B18.2 [facility] [id number] [place] [address] 98104- 9477 Feb, Chronic viral hepatitis C B18.2 [facility] [id number] [address]- 9678 Feb, [facility] [id number] [place] [address] 70175- 1008 Feb, Chronic viral hepatitis C B18.2 and Confusion R41.0 [facility] [id number] [place] [address] 44950- 5744 Feb, [facility] [id number] [place] [address] 10771- 0019 Jan, [facility] [id number] [place] [address] 08431- 0895 Jan, Confusion R41.0 [facility] [id number] [place] [address] 64211- 6872 Jan, [facility] [id number] [place] [address] 98785- 6509 Jan, [facility] [id number] [place] [address] 88042- 0889 Jan, [facility] [id number] [place] [address] 17597- 6999 Jan, [facility] [id number] [place] [address] 96784- 0534 Jan, Chronic viral hepatitis C B18.2 and 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 [facility] [id number] [place] [address] 52647- 1866 Jan, [facility] [id number] [place] [address] 08269- 2549 Jan, [facility] [id number] [place] [address] 65011- 6820 Jan, [facility] [id number] [address]- 2146 Jan, [facility] [id number] [place] [address] 55717- 9635 Jan, Chronic viral hepatitis C B18.2 [facility] [id number] [place] [address] 01226- 3901 16 Jan, 2015 [place] [address] 22294- 7414 Jan, Back pain at L4-L5 level M54.5 and Confusion R41.[address] 07553- 7217 Jan, [place] [address] 82425- 2226 30 Dec, 2014 Chronic viral hepatitis C B18.2 and Flu vaccine need V04.[address] 16022- 0848 30 Dec, 2014 Chronic viral hepatitis C B18.[address] 67905- 6790 Dec, [place] [address] 58304- 3284 Dec, Polyuria 788.[address] 83507- 8504 Dec, Polyuria 788.42 ; Polydipsia 783.5 ; Dizziness 780.4 and Hepatitis C, chronic 070.54 [place] [id number] [place] [address] 14101- 0772 10 Dec, 2014 Major depressive disorder, recurrent episode, unspecified 296.30 and Generalized anxiety disorder 300.[address] 35004- 7788 Nov, [place] [address] 46077- 5676 Nov, [place] [address] 39600- 4572 Nov, [address] [id number] [address]- 1720 Oct, [facility] [address] [address]- 4971 Sep, [facility] [id number]- 6512 August, Obsessive-compulsive disorders 300.3 ; Generalized anxiety disorder 300.02 and Major depressive disorder, recurrent episode, unspecified 296.30 [facility] [address] [address]- 5885 August, Chronic hepatitis C without mention of hepatic coma 070.54 ; Hypertension 401.9 and Seasonal allergies 477.9 [facility] [address] [address]- 0334 Jul, [facility] [id number] [address]- 3650 Jul, [facility] [id number] [address]- 0293 Jun, [facility] [address] [address]- 5275 Jun, [facility] [id number] [address]- 9484 May, [facility] [address] [address]- 8291 May, [facility] [address] [address]- 0969 May, [facility] [id number] [address]- 4918 May, [facility] [id number]- 7888 Apr, [facility] [id number] [address]- 5567 Apr, [facility] [place] [facility] [address] [id number] [place] [address]- 0376 Apr, [facility] [place] [facility] [address] [id number] [place] [address]- 8918 Apr, [facility] [place] [facility] [address] [id number] [place] [address]- 4088 Apr, [facility] [place] [facility] [address] [id number] [place] [address]- 1242 Apr, [facility] [place] [facility] [address] [id number] [place] 0933 Mar, [facility] [place] [facility] [address] [id number] [place] [address]- 5752 Mar, [facility] [place] [facility] [address] [id number] [place] [address]- 0299 Mar, [facility] [place] [facility] [address] [id number] [place] [address]- 8528 Mar, [facility] [place] [facility] [address] [id number] [place] [address]- 9940 Mar, [facility] [place] [facility] [address] [id number] [place] [address]- 7856 Mar, [facility] [place] [facility] [address] [id number] [place] 4410 Mar, [facility] [place] [facility] [address] [id number] [place] [address]- 8913 Mar, [facility] [place] [facility] [address] [id number] [place] [address]- 8871 Mar, [facility] [place] [facility] [address] [id number] [place] [address]- 2442 Feb, [facility] [place] [facility] [address] [id number] [place] [address]- 9890 Feb, [facility] [place] [facility] [address] [id number] [place] [address]- 5856 Feb, [facility] [place] [facility] [address] [id number] [place] [address]- 0060 Feb, [facility] [place] [facility] [address] [id number] [place] [address]- 5123 Feb, [facility] [place] [facility] [address] [id number] [place] [address]- 1487 Jan, [facility] [place] [facility] [address] [id number] [place] 9388 Jan, [facility] [place] [facility] [address] [id number] [place] [address]- 9024 Jan, [facility] [place] [facility] [address] [id number] [place] [address] Jan, [facility] [place] [facility] [address] [id number] [place] [address] Jan, [facility] [place] [facility] [address] [id number] [place] [address] Jan, [facility] [place] [facility] [address] [id number] [place] [address] Jan, [facility] [place] [facility] [address] [id number] [place] [address] Jan, [facility] [place] [facility] [address] [id number] [place] [address] Jan, [facility] [place] [facility] [address] [id number] [address] Nov, [facility] [place] [facility] [address] [id number] [place] [address] Nov, [facility] [place] [facility] [address] [id number] [place] [address] Nov, [facility] [place] [facility] [address] [id number] [place] [address] Oct, [facility] [place] [facility] [address] [id number] [place] [address] Oct, [facility] [place] [facility] [address] [id number] [place] [address] Oct, [facility] [place] [facility] [address] [id number] [place] [address] Oct, [facility] [place] [facility] [address] [id number] [place] [address] Sep, [facility] [place] [facility] [address] [id number] [place] [address] Sep, [facility] [place] [facility] [address] [id number] [place] [address] Sep, [facility] [place] [facility] [address] [id number] [place] [address] Sep, [facility] [place] [facility] [address] [id number] [place] [address] Sep, [facility] [place] [facility] [address] [id number] [place] [address] Sep, [facility] [place] [facility] [address] [id number] [place] [address] August, [facility] [place] [facility] [address] [id number] [place] [address] August, [facility] [place] [facility] [address] [id number] [place] [address] Jul, [facility] [place] [facility] [address] [id number] [place] [address] Jul, [facility] [place] [facility] [address] [id number] [place] [address] Jul, [facility] [place] [facility] [address] [id number] [place] [address] Jul, [facility] [place] [facility] [address] [id number] [place] [address] Jul, [facility] [place] [facility] [address] [id number] [place] [address] Jul, [facility] [place] [facility] [address] [id number] [place] [address] Jul, [facility] [place] [facility] [address] [id number] [place] [address] Jul, [facility] [place] [facility] [address] [id number] [place] [address] Jul, [facility] [place] [facility] [address] [id number] [place] [address] Jul, [facility] [place] [facility] [address] [id number] [place] [address] Jun, [facility] [place] [facility] [address] [id number] [place] [address] Jun, [facility] [place] [facility] [address] [id number] [place] [address] Jun, [facility] [place] [facility] [address] [id number] [place] [address] Jun, [facility] [place] [facility] [address] [id number] [place] [address] May, [facility] [place] [facility] [address] [id number] [place] [address] May, [facility] [place] [facility] [address] [id number] [place] [address] May, [facility] [place] [facility] [address] [id number] [place] [address] May, [facility] [place] [facility] [address] [id number] [place] [address] 8069 May, [facility] [place] [facility] [address] [id number] [place] [address] 46[address] May, [facility] [place] [facility] [address] [id number] [place] [address] 16 Mar, 2013 [facility] [address] [id number] [place] [address] 16 Mar, 2013 [facility] [place] [facility] [address] [id number] [place] [address] 16 Mar, 2013 [facility] [address] [id number] [place] [address] 3634 16 Mar, 2013 [facility] [place] [facility] [address] [id number] [place] [address] 16 Mar, 2013 [facility] [address] [id number] [place] [address] 16 Mar, 2013 [facility] [place] [facility] [address] [id number] [place] [address] Feb, [facility] [address] [id number] [place] [address] 23 Feb, 2013 [facility] [place] [facility] [address] [id number] [place] [address] 6[address] Feb, [facility] [place] [facility] [address] [id number] [place] [address]479 Feb, [facility] [place] [facility] [address] [facility] [id number] [place] [address] 4728 Feb, [facility] [place] [facility] [address] [id number] [place] [address] 1513 12 Feb, 2013 [facility] [place] [facility] [address] [id number] [address] Feb, [facility] [place] [facility] [address] [id number] [place] [address] 6204 07 Feb, 2013 [facility] [place] [facility] [address] [id number] [place] [address] 18 Jan, 2013 [facility] [place] [facility] [address] [id number] [place] [address] 18 Jan, 2013 [facility] [place] [facility] [address] [id number] [place] [address] 4057 17 Jan, 2013 [facility] [place] [facility] [address] [id number] [place] [address]- 2775 16 Jan, 2013 [facility] [place] [facility] [address] [id number] [place] [address]- 4992 16 Jan, 2013 [facility] [place] [facility] [address] [id number] [place] [address]- 6078 14 Jan, 2013 [facility] [place] [facility] [address] [id number] [place] [address] 3513 14 Jan, 2013 [facility] [place] [facility] [address] [id number] [place] [address]- 3445 11 Jan, 2013 [facility] [place] [facility] [address] [id number] [place] [address]- 4617 11 Jan, 2013 [facility] [place] [facility] [address] [id number] [place] [address]- 4183 10 Jan, 2013 [facility] [place] [facility] [address] [id number] [place] [address]- 1429 27 Dec, 2012 [facility] [place] [facility] [address] [id number] [place] [address] 8130 18 Dec, 2012 [facility] [place] [facility] [address] [id number] [place] [address] 2632 18 Dec, 2012 [facility] [place] [facility] [address] [id number] [place] [address]- 1642 30 Nov, 2012 [facility] [place] [facility] [address] [id number] [place] [address] 2648 29 Nov, 2012 [facility] [place] [facility] [address] [id number] [place] [address] 6901 28 Nov, 2012 [facility] [place] [facility] [address] [id number] [place] [address] 7560 27 Nov, 2012 [facility] [place] [facility] [address] [id number] [place] [address] 0996 Nov, [facility] [place] [facility] [address] [id number] [place] [address]- 0385 Nov, [facility] [place] [facility] [address] [id number] [place] [address]- 5357 Nov, [facility] [place] [facility] [address] [id number] [place] [address] 8302 Nov, [facility] [place] [facility] [address] [id number] [place] [address]- 9246 Nov, [facility] [place] [facility] [address] [id number] [place] [address] 29[address] Nov, [facility] [place] [facility] [address] [id number] [place] [address]- 6084 Oct, [facility] [place] [facility] [address] [id number] [place] [address]- 2566 Oct, [facility] [place] [facility] [address] [id number] [place] [address]- 4190 Oct, [facility] [place] [facility] [address] [id number] [place] [address] 3762 Oct, [facility] [place] [facility] [address] [id number] [place] [address] 2001 Oct, [facility] [place] [facility] [address] [id number] [place] [address] 8012 Oct, [facility] [place] [facility] [address] [id number] [place] [address] 5870 Oct, [facility] [place] [facility] [address] [id number] [place] [address]- 9742 Oct, [facility] [place] [facility] [address] [id number] [place] [address]- 8732 Sep, [facility] [place] [facility] [address] [id number] [place] [address]- 0254 Sep, [facility] [place] [facility] [address] [id number] [place] [address]- 4354 Sep, [facility] [address] [id number] [place] [address] 8631 Sep, [facility] [address] [id number] [place] [address] 3866 August, [facility] [address] [id number] [place] [address]- 6522 August, [facility] [address] [id number] [place] [address] 7937 August, [facility] [address] [place] [id number] Jul, [facility] [address] [facility] [place] [id number] Jul, [facility] [address] [id number] [place] [address] 6172 Jun, [facility] [address] [id number] [place] [address] 5767 May, [facility] [address] [id number] [place] [address]- 9450 May, [facility] [address] [id number] [place] [address]- 6[address] Apr, [facility] [address] [id number] [place] [address]- 7715 Feb, [facility] [address] [id number] [place] [address]- 1853 Feb, [facility] [place] [facility] [address] [id number] [place] [address] 9409 Jan, [facility] [place] [facility] [address] [id number] [place] [address]- 8917 Jan, [facility] [place] [facility] [address] [id number] [place] [address]- 6228 Jan, [facility] [place] [facility] [address] [id number] [place] [address]- 1516 Jan, [facility] [address] [id number] [place] [address]- 4606 Jan, [facility] [place] [facility] [address] [id number] [place] [address]- 2696 Dec, [facility] [address] [id number] [place] [address] 2546 Dec, [facility] [address] [id number] [id number] Nov, [facility] [place] [facility] [address] [id number] [place] [address]- 6597 Nov, [facility] [place] [facility] [address] [id number] [place] [address]- 5690 Nov, [facility] [address] [id number] [place] [address]- 6638 Nov, [facility] [place] [facility] [address] [id number] [place] [address]- 6665 August, [facility] [place] [facility] [address] [id number] [place] [address]- 3568 August, [facility] [place] [facility] [address] [id number] [place] [address] August, [facility] [place] [facility] [address] [id number] [place] [address]- [address]996 Jul, [facility] [place] [facility] [address] [id number] [place] [address] 2003 May, [facility] [place] [facility] [address] [id number] [place] [address]- 2676 May, [facility] [place] [facility] [address] [id number] [place] [address]- 3166 May, [facility] [place] [facility] [address] [id number] [place] [address]- 1786 Mar, [facility] [place] [facility] [address] [id number] [address] Jan, [facility] [address] [id number] [address] Jan, [facility] [id number] [address]- 1556 Oct, [facility] [id number] [address]- 2525 August, [facility] [id number] [address]- 8626 Jan, [facility] [id number] [address]- 2984 Jan, [facility] [id number] [address]- 0591 Jan, [facility] [id number] [address] 0903 Jan, IMMUNIZATIONS No Known Immunizations SOCIAL HISTORY [...]
--- OUTSIDE RECORDS SUMMARY | 2018-02-08 21:35 | XMS REPORT ---
Author Author ROSIO IRBY Organization 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 Name Role Phone ROSIO IRBY Unavailable PROBLEMS Type Condition ICD9-CM Code [id number] Code Onset Dates Condition Status SNOMED Code Problem History of alcohol abuse Z87.898 Active 119842356 Problem Mood disorder F39 Active 14418716 Problem Generalized anxiety disorder F41.1 Active 87611732 Problem Hypertension, benign I10 Active 81267524 Problem Allergic rhinitis, unspecified allergic rhinitis type J30.9 Active 41914517 Problem Chronic hepatitis C without hepatic coma B18.2 Active 794876835 Problem Obsessive compulsive disorder F42 Active 804718014 Problem Hyperammonemia E72.20 Active 1076791 ALLERGIES No Known Allergies ENCOUNTERS Encounter Location Date Diagnosis [place] [id number] [place] [address] 27850- 9882 Jul, Chronic hepatitis C without hepatic coma B18.2 [place] [address] 78082- 2549 Jul, Generalized anxiety disorder F41.1 ; Mood disorder F39 and History of hepatitis C Z86.19 [place] [id number] [place] [address] 24815- 9708 Jul, Chronic hepatitis C without hepatic coma B18.2 [place] [id number] [place] [address] 62218- 7663 Jun, Chronic hepatitis C without hepatic coma B18.2 [facility] [id number] [place] [address] 33939- 5962 Jun, [facility] [id number] [place] [address] 47644- 4078 May, Chronic hepatitis C without hepatic coma B18.2 [facility] [id number] [place] [address] 52099- 3938 May, Hypertension, benign I10 [facility] [id number] [place] [address] 03163- 2198 Apr, Chronic hepatitis C without hepatic coma B18.2 [facility] [id number] [place] [address] 18601- 1574 Apr, Hypertension, benign I10 [facility] [id number] [place] [address] 67958- 8649 Mar, Chronic hepatitis C without hepatic coma B18.2 [facility] [id number] [place] [address] 47355- 7303 Mar, Hypertension, benign I10 [place] [id number] [place] [address] 82179- 5186 Mar, Encounter for immunization Z23 ; Hypertension, benign I10 and Strain of right Achilles tendon, initial encounter S86.011A [facility] [id number] [place] [address] 92622- 8794 Feb, Chronic hepatitis C without hepatic coma B18.2 [facility] [id number] [place] [address] 87649- 8689 Jan, Chronic hepatitis C without hepatic coma B18.2 [facility] [id number] [place] [address] 46658 -7576 Jan, Toe pain, right M79.674 and Cellulitis of foot, right L03.115 [facility] [id number] [place] [address] 95268- 9483 Dec, Chronic hepatitis C without hepatic coma B18.2 [facility] [id number] [place] [address] 06294- 8669 Nov, Chronic hepatitis C without hepatic coma B18.2 and Eczema of both hands L30.9 [facility] [id number] [address]- 1852 Nov, [facility] [address] [address]- 5375 Oct, [facility] [address] [address]- 9532 Sep, [facility] [address] [address]- 4318 August, [facility] [address] [address]- 8551 August, [facility] [id number] [place] [address], [place] [address]- 6144 Jul, [facility] [address] [address]- 9078 Jul, [facility] [id number] [place] [address] 58744- 1846 Jun, [facility] [address] [address]- 8644 Jun, [facility] [address] [address]- 7170 May, [facility] [address] [address]- 1401 Apr, Chronic hepatitis C without hepatic coma B18.2 ; Hyperglycemia R73.9 and Hypertension, benign I10 [facility] [address] [address]- 1612 Apr, Chronic hepatitis C without hepatic coma B18.2 ; Mood disorder F39 ; Hypertension, benign I10 and Hyperglycemia R73.9 [facility] [address] [address]- 7671 Apr, [facility] [address], [place] [address]- 5573 Apr, [facility] [id number] [address]- 9563 Apr, [facility] [address] [address]- 4130 Feb, [facility] [address] [address]- 7575 Feb, [facility] [id number] [place] [address] 36951- 6238 Feb, [facility] [id number] [address]- 7542 Feb, [facility] [id number] [place] [address] 65408- 7044 Jan, [facility] [id number] [address]- 7095 Jan, Chronic hepatitis C without hepatic coma B18.2 ; Mood disorder F39 ; Encounter for immunization Z23 and Chronic viral hepatitis C B18.2 [facility] [address], [place] [address]- 2922 Jan, [facility] [id number] [address]- 6692 Jan, [facility] [address] [address]- 7676 Dec, [facility] [address] [address]- 3183 Dec, [facility] [address] [address]- 2545 Nov, [facility] [address] [address]- 2622 Nov, Weakness of both legs M62.81 [facility] [address] [address]- 8157 Nov, [facility] [address], [place] [address]- 2596 Nov, [facility] [address] [address]- 4836 Nov, [facility] [id number] [place] [address] 67934- 1459 Nov, Eczema, unspecified type L30.9 [facility] [id number] [place] [address] 93484- 1675 Nov, [facility] [id number] [place] [address] 28904- 7560 Nov, Eczema, unspecified type L30.9 ; Cessation of tobacco use in previous 12 months Z87.891 and Weakness of both legs M62.81 [facility] [id number] [place] [address] 05080- 1556 Oct, [facility] [id number] [place] [address] 96022- 9746 Oct, [facility] [id number] [place] [address] 84867- 3310 Oct, [facility] [id number] [place] [address] 90615- 1681 Oct, Chronic viral hepatitis C B18.2 [facility] [id number] [place] [address] 53843- 9777 Sep, 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 [id number] [place] [address] 15058- 7150 Sep, [facility] [id number] [place] [address] 48477- 8859 August, [facility] [id number] [place] [address] 76479- 4567 August, Hyperammonemia E72.20 [facility] [address] [address]- 5140 August, Hyperammonemia E72.20 [facility] [id number] [place] [address], [place] [address]- 1796 August, Hyperammonemia E72.20 and Chronic hepatitis C without hepatic coma B18.2 [facility] [id number] [place] [address] 82586- 5976 August, Chronic viral hepatitis C B18.2 [facility] [id number] [place] [address] 52699 2546 August, [facility] [id number] [place] [address], [place] [address]- 4006 Jul, Chronic viral hepatitis C B18.2 and Hyperammonemia E72.20 [facility] [id number] [place] [address] 84601- 2816 Jul, Chronic viral hepatitis C B18.2 [facility] [id number] [place] [address] 254 Jul, [facility] [id number] [place] [address], [place] [address]- 254 Jul, [facility] [address] [address]- 2541 28 Jun, 2015 [facility] [id number] [place] [address] 36945 2546 Jun, Chronic viral hepatitis C B18.2 and Hyperammonemia E72.20 [facility] [id number] [place] [address] 2546 Jun, [facility] [address], [place] [address]- 2546 18 Jun, 2015 [facility] [address] [address]- 1228 16 Jun, 2015 Chronic viral hepatitis C B18.2 [facility] [address] [address]- 1870 10 Jun, 2015 [facility] [id number] [place] [address] 21882- 2896 07 Jun, 2015 Chronic viral hepatitis C B18.2 [facility] [address] [address]- 1846 17 May, 2015 Chronic viral hepatitis C B18.2 and Hepatitis C, chronic B18.2 [facility] [id number] [place] [address] 62437- 0916 May, [facility] [id number] [place] [address] 10593- 4797 Apr, [facility] [id number] [place] [address] 97546- 9438 Apr, Chronic viral hepatitis C B18.2 and Hyperammonemia E72.20 [facility] [id number] [address]- 9040 Apr, Chronic viral hepatitis C B18.2 [facility] [id number] [place] [address] 36547- 3794 Apr, Hyperammonemia E72.20 [facility] [address], [place] [address]- 5594 Apr, [facility] [id number] [place] [address] 47133- 5458 Apr, [facility] [address] [address]- 0107 Apr, Chronic hepatitis C without hepatic coma B18.2 ; Chronic viral hepatitis C B18.2 and Hyperammonemia E72.20 [facility] [address], [place] [address]- 6897 Mar, Shortness of breath R06.02 [facility] [id number] [place] [address] 02094- 9942 Mar, Mood disorder F39 and Major depressive disorder, recurrent episode, unspecified 296.30 [facility] [id number] [place] [address] 54502- 3259 28 Mar, 2015 [facility] [id number] [place] [address] 79708- 8831 Mar, [facility] [address] 16868- 0908 15 Mar, 2015 [facility] [id number] [place] [address] 63671 -3392 Mar, Seasonal allergies J30.2 ; Shortness of breath R06.02 and Cough R05 [facility] [id number] [place] [address] 19539- 2154 Mar, Hyperammonemia E72.20 ; Mood disorder F39 and History of alcohol abuse Z87.898 [facility] [id number] [place] [address] 14400- 1160 Mar, Hyperammonemia E72.20 [facility] [id number] [place] [address] 13351- 7837 Mar, [facility] [id number] [place] [address] 46807- 8032 Feb, [facility] [id number] [place] [address] 97448- 8550 Feb, [facility] [id number] [place] [address] 31199- 6777 Feb, Hyperammonemia E72.20 [facility] [id number] [place] [address] 41729- 0113 Feb, [facility] [id number] [place] [address] 02189- 3759 Feb, [facility] [id number] [place] [address] 90328- 8180 Feb, [facility] [id number] [place] [address] 94542- 2896 Feb, [facility] [id number] [place] [address] 08410- 4148 Feb, Chronic viral hepatitis C B18.2 [facility] [id number] [place] [address] 68031- 5926 Feb, Chronic viral hepatitis C B18.2 [facility] [id number] [place] [address] 64391- 1713 Feb, [facility] [id number] [place] [address] 67068- 1987 Feb, Chronic viral hepatitis C B18.2 and Confusion R41.0 [facility] [id number] [place] [address] 08667- 0608 Feb, [facility] [id number] [place] [address] 69065- 1804 Jan, [facility] [id number] [place] [address] 47109- 0870 Jan, Confusion R41.0 [facility] [id number] [place] [address] 51573- 4712 Jan, [facility] [id number] [place] [address] 78728- 0297 Jan, [facility] [id number] [place] [address] 38214- 8282 Jan, [facility] [id number] [place] [address] 98356- 1736 Jan, 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 [address], [place] [address]- 8485 Jan, [facility] [id number] [place] [address] 42425- 9904 Jan, [facility] [id number] [place] [address] 23137- 2478 Jan, [facility] [address] 79208- 7154 Jan, Chronic viral hepatitis C B18.2 [facility] [id number] [place] [address] 72615- 8430 Jan, [facility] [id number] [place] [address] 73133- 3528 Jan, Back pain at L4-L5 level M54.5 and Confusion R41.0 [facility] [id number] [place] [address] 80724- 0680 Jan, [facility] [id number] [place] [address] 98254- 7238 30 Dec, 2014 Chronic viral hepatitis C B18.2 and Flu vaccine need V04.81 [facility] [id number] [place] [address] 87447- 0620 30 Dec, 2014 Chronic viral hepatitis C B18.2 [facility] [id number] [place] [address] 80029- 7123 Dec, [facility] [id number] [place] [address] 50776- 7443 Dec, Polyuria 788.42 [facility] [id number] [place] [address] 09866- 4570 Dec, Polyuria 788.42 ; Polydipsia 783.5 ; Dizziness 780.4 and Hepatitis C, chronic 070.54 [facility] [id number] [place] [address] 88120- 7610 10 Dec, 2014 Major depressive disorder, recurrent episode, unspecified 296.30 and Generalized anxiety disorder 300.02 [facility] [address] [address]- 6769 Nov, [facility] [address], [place] [address]- 6359 Nov, [facility] [id number] [address] Nov, [facility] [id number] [place] [address] Oct, [facility] [id number] [place] [address]- [address] Sep, [facility] [id number] [place] [address]- [address] August, Obsessive-compulsive disorders 300.3 ; Generalized anxiety disorder 300.02 and Major depressive disorder, recurrent episode, unspecified 296.30 [facility] [id number] [place] [address]- [address]38 August, Chronic hepatitis C without mention of hepatic coma 070.54 ; Hypertension 401.9 and Seasonal allergies 477.9 [facility] [id number] [address] Jul, [facility] [id number] [address] Jul, [facility] [id number] [address] Jun, [facility] [id number] [address] Jun, [facility] [id number] [address] May, [facility] [id number] [address] May, [facility] [id number] [place] [address] [place] [address] May, [facility] [address] [id number] [place] [address] May, [facility] [place] [facility] [address] [id number] [place] [address] Apr, [facility] [place] [facility] [address] [id number] [place] [address]- 7032 Apr, [facility] [place] [facility] [address] [id number] [place] [address] Apr, [facility] [place] [facility] [address] [id number] [place] [address] Apr, [facility] [place] [facility] [address] [id number] [place] [address]- [address] Apr, [facility] [address] [id number] [place] [address]359 Apr, [facility] [place] [facility] [address] [id number] [place] [address] Mar, [facility] [place] [facility] [address] [id number] [place] [address] Mar, [facility] [place] [facility] [address] [id number] [place] [address] Mar, [facility] [place] [facility] [address] [id number] [place] [address] Mar, [facility] [place] [facility] [address] [id number] [place] [address] Mar, [facility] [place] [facility] [address] [id number] [place] [address]- 4[address] Mar, [facility] [place] [facility] [address] [id number] [place] [address]- [address] Mar, [facility] [place] [facility] [address] [id number] [place] [address]- [address]753 Mar, [facility] [place] [facility] [address] [id number] [place] [address]- [address] Mar, [facility] [place] [facility] [address] [id number] [place] [address] Feb, [facility] [place] [facility] [address] [id number] [place] [address]- [address] Feb, [facility] [place] [facility] [address] [id number] [place] [address]- [address] Feb, [facility] [place] [facility] [address] [id number] [place] [address]- [address] Feb, [facility] [place] [facility] [address] [id number] [place] [address]- [address] Feb, [facility] [place] [facility] [address] [id number] [place] [address]- [address] Jan, [facility] [place] [facility] [address] [id number] [place] [address]- [address] Jan, [facility] [place] [facility] [address] [id number] [place] [address]- [address] Jan, [facility] [place] [facility] [address] [id number] [place] [address]- 7682 Jan, [facility] [place] [facility] [address] [id number] [place] [address]- [address] Jan, [facility] [place] [facility] [address] [id number] [place] [address]- 14[address] Jan, [facility] [place] [facility] [address] [id number] [place] [address]- 89[address] Jan, [facility] [place] [facility] [address] [id number] [place] [address]- 3399 Jan, [facility] [place] [facility] [address] [id number] [place] [address] Jan, [facility] [place] [facility] [address] [id number] [place] [address] Nov, [facility] [place] [facility] [address] [id number] [place] [address] Nov, [facility] [place] [facility] [address] [id number] [place] [address] Nov, [facility] [place] [facility] [address] [id number] [place] [address] Oct, [facility] [place] [facility] [address] [id number] [place] [address] Oct, [facility] [place] [facility] [address] [id number] [place] [address] 64[address] Oct, [facility] [place] [facility] [address] [id number] [place] [address] 8773 Oct, [facility] [place] [facility] [address] [id number] [place] [address] 76[address] Sep, [facility] [place] [facility] [address] [id number] [place] [address] 2069 Sep, [facility] [place] [facility] [address] [id number] [place] [address] Sep, [facility] [place] [facility] [address] [id number] [place] [address] Sep, [facility] [place] [facility] [address] [id number] [place] [address] 39[address] Sep, [facility] [place] [facility] [address] [id number] [place] [address]- 8986 Sep, [facility] [place] [facility] [address] [id number] [place] [address] 9[address] August, [facility] [place] [facility] [address] [id number] [place] [address] 5316 August, [facility] [place] [facility] [address] [id number] [place] [address]77 Jul, [facility] [place] [facility] [address] [id number] [place] [address] Jul, [facility] [address] [id number] [place] [address] 7[address] Jul, [facility] [place] [facility] [address] [id number] [place] [address] 7916 Jul, [facility] [address] [id number] [place] [address] Jul, [facility] [place] [facility] [address] [id number] [place] [address] Jul, [facility] [address] [id number] [place] [address] Jul, [facility] [address] [id number] [place] [address]- 6469 Jul, [facility] [place] [facility] [address] [id number] [place] [address] 8486 Jul, [facility] [address] [id number] [place] [address]- 9794 Jul, [facility] [place] [facility] [address] [id number] [place] [address] 6[address] Jun, [facility] [address] [id number] [place] [address] Jun, [facility] [place] [facility] [address] [id number] [place] [address] 4312 Jun, [facility] [place] [facility] [address] [id number] [place] [address]- 3742 Jun, [facility] [place] [facility] [address] [id number] [place] [address]- 77[address] May, [facility] [place] [facility] [address] [id number] [place] [address] 1377 May, [facility] [place] [facility] [address] [id number] [place] [address] 3646 May, [facility] [place] [facility] [address] [id number] [place] [address]- 0905 12 May, 2013 [facility] [place] [facility] [address] [id number] [place] [address]- 4[address] 10 May, 2013 [facility] [place] [facility] [address] [id number] [place] [address]- 7045 10 May, 2013 [facility] [place] [facility] [address] [id number] [place] [address] 3611 16 Mar, 2013 [facility] [place] [facility] [address] [id number] [place] [address]- 2709 Mar, [facility] [place] [facility] [address] [id number] [place] [address]- 8562 Mar, [facility] [place] [facility] [address] [id number] [place] [address] 0868 Mar, [facility] [place] [facility] [address] [id number] [place] [address]- 0291 Mar, [facility] [place] [facility] [address] [id number] [place] [address]- 2342 Mar, [facility] [place] [facility] [address] [id number] [place] [address]- 5252 Feb, [facility] [place] [facility] [address] [id number] [place] [address]- 3105 Feb, [facility] [place] [facility] [address] [id number] [address] Feb, [facility] [place] [facility] [address] [id number] [place] [address]- 6028 Feb, [facility] [place] [facility] [address] [id number] [place] [address]- 0583 Feb, [facility] [place] [facility] [address] [id number] [place] [address]- 7924 Feb, [facility] [place] [facility] [address] [id number] [place] [address] 07 Feb, 2012 [facility] [place] [facility] [address] [id number] [place] [address]- 0438 07 Feb, 2012 [facility] [place] [facility] [address] [id number] [place] [address]- 0088 18 Jan, 2012 [facility] [place] [facility] [address] [id number] [place] [address] 18 Jan, 2012 [facility] [place] [facility] [address] [id number] [place] [address]- 0904 17 Jan, 2012 [facility] [place] [facility] [address] [id number] [place] [address]- 5070 16 Jan, 2012 [facility] [place] [facility] [address] [id number] [place] [address]- 4325 16 Jan, 2013 [facility] [place] [facility] [address] [id number] [place] [address]- 5605 14 Jan, 2013 [facility] [place] [facility] [address] [id number] [place] [address]- 2256 14 Jan, 2013 [facility] [place] [facility] [address] [id number] [place] [address]- 8848 11 Jan, 2013 [facility] [place] [facility] [address] [id number] [place] [address]- 5234 11 Jan, 2013 [facility] [place] [facility] [address] [id number] [place] [address] 10 Jan, 2013 [facility] [place] [facility] [address] [id number] [place] [address]- 8349 27 Dec, 2012 [facility] [place] [facility] [address] [id number] [place] [address] 18 Dec, 2012 [facility] [place] [facility] [address] [id number] [place] [address]- 5673 18 Dec, 2012 [facility] [place] [facility] [address] [id number] [place] [address] Nov, [facility] [place] [facility] [address] [id number] [place] [address]- 3323 Nov, [facility] [place] [facility] [address] [id number] [place] [address]- 4570 Nov, [facility] [place] [facility] [address] [id number] [place] [address]- 1555 Nov, [facility] [place] [facility] [address] [id number] [place] [address]- 9726 Nov, [facility] [place] [facility] [address] [id number] [place] [address]- 7488 Nov, [facility] [place] [facility] [address] [id number] [place] [address]- 3061 Nov, [facility] [place] [facility] [address] [id number] [place] [address]- 9487 Nov, [facility] [place] [facility] [address] [id number] [place] [address]- 0823 Nov, [facility] [place] [facility] [address] [id number] [place] [address]- 4144 Nov, [facility] [place] [facility] [address] [id number] [place] [address]- 6308 Oct, [facility] [place] [facility] [address] [id number] [place] [address]- 4381 Oct, [facility] [place] [facility] [address] [id number] [place] [address]- 8122 Oct, [facility] [place] [facility] [address] [id number] [place] [address]- 7184 Oct, [facility] [place] [facility] [address] [id number] [place] [address]- 8117 Oct, [facility] [place] [facility] [address] [id number] [place] [address]- 8024 Oct, [facility] [place] [facility] [address] [id number] [place] [address] 2546 Oct, [facility] [address] [id number] [place] [address]- 0853 Oct, [facility] [address] [id number] [place] [address]- 5726 Sep, [facility] [address] [id number] [place] [address]- 8826 Sep, [facility] [place] [facility] [address] [id number] [place] [address]- 0464 Sep, [facility] [address] [id number] [place] [address]- 8194 Sep, [facility] [address] [id number] [place] [address]- 8886 August, [facility] [address] [id number] [place] [address]- 4936 August, [facility] [address] [id number] [place] [address]- 6036 August, [facility] [address] [place] [id number] Jul, [facility] [address] [facility] [place] [id number] Jul, [facility] [address] [id number] [place] [address]- 2406 Jun, [facility] [address] [id number] [place] [address]- 4306 May, [facility] [place] [facility] [address] [id number] [place] [address]- 2546 May, [facility] [place] [facility] [address] [id number] [place] [address]- 6746 Apr, [facility] [place] [facility] [address] [id number] [place] [address]- 2546 Feb, [facility] [place] [facility] [address] [id number] [place] [address]- 2546 Feb, [facility] [place] [facility] [address] [id number] [place] [address]- 4506 Jan, [facility] [place] [facility] [address] [id number] [place] [address]- 1656 Jan, [facility] [place] [facility] [address] [id number] [place] [address]- 3196 Jan, [facility] [place] [facility] [address] [id number] [place] [address]- 2546 Jan, [facility] [place] [facility] [address] [id number] [place] [address]- 2046 Jan, [facility] [place] [facility] [address] [id number] [place] [address]- 2546 Dec, [facility] [address] [id number] [place] [address]- 2546 Dec, [facility] [address] [id number] [address] Nov, [facility] [place] [facility] [address] [id number] [place] [address]- 6903 Nov, [facility] [place] [facility] [address] [id number] [place] [address]- 3036 Nov, [facility] [place] [facility] [address] [id number] [place] [address]- 3836 Nov, [facility] [place] [facility] [address] [id number], [place] [address]- 8516 August, [facility] [place] [facility] [address] [id number] [place] [address]- 5806 August, [facility] [place] [facility] [address] [id number] [place] [address]- 8496 August, [facility] [place] [facility] [address] [id number] [place] [address]- 8006 Jul, [facility] [place] [facility] [address] [id number], [place] [address]- 8288 May, [facility] [id number] [address]395 May, [facility] [id number] [address]25 May, [facility] [id number] [address]- 0826 Mar, [facility] [id number] [place] [address]- [address]100 Jan, [facility] [id number] [place] [address]- 5230 Jan, [facility] [id number] [place] [address]- 3862 Oct, [facility] [id number] [place] [address]- 3592 August, [facility] [id number] [address]- 0440 Jan, [facility] [id number] [address]- 2079 Jan, [facility] [id number] [address]- 6896 Jan, [facility] [id number], [place] [address]- [address] Jan, IMMUNIZATIONS No Known Immunizations SOCIAL HISTORY Never Assessed REASON FOR VISIT BP/Mood Disorder f/u, Needs to discuss changes in Shanelle Henriquez PLAN OF CARE VITAL SIGNS Height 72 in 2016-12-08 Weight 254.4 lbs 2016-12-08 Temperature 97.7 degrees Fahrenheit 2016-12-08 Heart Rate 64 bpm 2016-12-08 Respiratory Rate 18 2016-12-08 BMI 34.50 kg/m2 2016-12-08 Blood pressure systolic 142 mmHg 2016-12-08 Blood pressure diastolic 98 mmHg 2016-12-08 MEDICATIONS Medication Instructions Dosage Frequency Start Date End Date Duration Status Centrum Adults Active Xifaxan 200 MG Orally 3 times a day 2 tablets 8h Active Albuterol Sulfate HFA 108 (90 Base) MCG/ACT Inhalation every 4 hrs 2 puffs as needed 4h Mar, Active Claritin 10 mg Orally Once a day 1 tablet 24h August, 90 Active Hydrochlorothiazide 25 MG Orally Once a day 1 tablet in the morning 24h Active Dandelion Root 520 MG Active Ketoconazole 2 % Externally no more than twice a day 1 application to affected area Nov, Active Triamcinolone Acetonide 0.1 % Externally Twice a day 1 application to affected area 12h Nov, Active Lexapro 20 MG Orally Once a day 1 tablet 24h Active Propranolol HCl 40 MG Orally Three times a day 1 tablet 8h Active Xanax 2 MG Orally 4 times a day 1 tablet 6h Jun, 28 days Active Potassium Chloride ER 10 MEQ TAKE 1 CAPSULE EVERY DAY 90 Active Aspirin 81 MG Orally Once a day 1 tablet 24h May, Active Gabapentin 600 MG TAKE 1/2 TABLET EVERY MORNING AND AFTERNOON AND TAKE 1 TABLET AT BEDTIME Active Mirtazapine 15 MG Orally Once a day 1 tablet at bedtime 24h Active RESULTS No Results PROCEDURES Procedure Date Ordered Result Body Site [facility] VISIT ESTABLISHED PATIENT Dec 08, 2016 MEAGAN, ROUTINE* Dec 08, 2016 LAB [facility] Dec 08, 2016 INSTRUCTIONS MEDICATIONS ADMINISTERED No Known Medications MEDICAL [...]
--- OUTSIDE RECORDS SUMMARY | 2018-02-08 21:37 | XMS REPORT | Continuity of Care Document ---
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 APNEA, OBSTRUCTIVE (ADULT/PED) 10/13/2012 ROBY MORRIS DOA K 786.07 WHEEZING 10/13/2012 EMMA FERNANDO APRN 327.23 SLEEP APNEA, OBSTRUCTIVE (ADULT/PED) 10/13/2012 EMMA FERNANDO APRN 786.07 WHEEZING 10/13/2012 EMMA FERNANDO APRN 327.23 SLEEP APNEA, OBSTRUCTIVE (ADULT/PED) 10/13/2012 EMMA FERNANDO APRN 786.07 WHEEZING 10/13/2012 VENKAT MORRIS DO K 327.23 SLEEP APNEA, OBSTRUCTIVE (ADULT/PED) 10/13/2012 ARTURO PITTS VENKAT K 786.07 WHEEZING 10/13/2012 ROSIO IRBY APRN 327.23 SLEEP APNEA, OBSTRUCTIVE (ADULT/PED) 10/13/2012 ROSIO IRBY APRN 786.07 WHEEZING 10/13/2012 EMMA FERNANDO APRN 327.23 SLEEP APNEA, OBSTRUCTIVE (ADULT/PED) 10/13/2012 EMMA FERNANDO APRN 786.07 WHEEZING 10/13/2012 ROSIO IRBY APRN 327.23 SLEEP APNEA, OBSTRUCTIVE (ADULT/PED) 10/13/2012 ROSIO IRBY APRN 786.07 WHEEZING 10/13/2012 ROSIO IRBY APRN T 327.23 SLEEP APNEA, OBSTRUCTIVE (ADULT/PED) 10/13/2012 ROSIO IRBY APRN T 786.07 WHEEZING 10/13/2012 LUIGI CONVENTION WORKER, NERISSA 327.23 SLEEP APNEA, OBSTRUCTIVE (ADULT/PED) 10/13/2012 LUIGI CONVENTION WORKER, NERISSA 786.07 WHEEZING 10/13/2012 ROSIO IRBY APRN T 327.23 SLEEP APNEA, OBSTRUCTIVE (ADULT/PED) 10/13/2012 ROSIO IRBY APRN T 786.07 WHEEZING 10/13/2012 ROSIO IRBY APRN T 327.23 SLEEP APNEA, OBSTRUCTIVE (ADULT/PED) 10/13/2012 ROSIO IRBY APRN T 786.07 WHEEZING 10/13/2012 NERISSA MEYERS APRN 327.23 SLEEP APNEA, OBSTRUCTIVE (ADULT/PED) 10/13/2012 NAZIA MEYERS APRNETTE 786.07 WHEEZING 10/13/2012 ROSIO IRBY APRN T 327.23 SLEEP APNEA, OBSTRUCTIVE (ADULT/PED) 10/13/2012 ROSIO IRBY APRN T 786.07 WHEEZING 10/13/2012 ROSIO IRBY APRN T 327.23 SLEEP APNEA, OBSTRUCTIVE (ADULT/PED) 10/13/2012 ROSIO IRBY APRN T 786.07 WHEEZING 10/13/2012 ROSIO IRBY APRN T 327.23 SLEEP APNEA, OBSTRUCTIVE (ADULT/PED) 10/13/2012 ROSIO IRBY APRN T 786.07 WHEEZING 10/13/2012 LUIGI CONVENTION WORKER, NERISSA 327.23 SLEEP APNEA, OBSTRUCTIVE (ADULT/PED) 10/13/2012 NAZIA MEYERS APRNETTE 786.07 WHEEZING 10/13/2012 LUIGI WHITMORE, NERISSA 327.23 SLEEP APNEA, OBSTRUCTIVE (ADULT/PED) 10/13/2012 LUIGI CONVENTION WORKER, NERISSA 786.07 WHEEZING 11/04/2012 ROSIO IRBY Ot 780.79 OTH MALAISE FATIGUE 11/04/2012 ROSIO IRBY TECHNICIAN'S HELPER Ot 784.0 HEADACHE 11/04/2012 ROSIO IRBY TECHNICIAN'S HELPER Ot 786.03 APNEA 11/10/2012 275.42 HYPERCALCEMIA 11/10/2012 786.2 COUGH 11/10/2012 275.42 HYPERCALCEMIA 11/10/2012 786.2 COUGH 11/10/2012 275.42 HYPERCALCEMIA 11/10/2012 786.2 COUGH 11/10/2012 275.42 HYPERCALCEMIA 11/10/2012 786.2 COUGH 11/10/2012 WERJB RICHARDS DO F 275.42 HYPERCALCEMIA 11/10/2012 WERMAURICE DOJB F 786.2 COUGH 11/10/2012 MORRIS DO, VENKAT K 275.42 HYPERCALCEMIA 11/10/2012 MORRIS DO, VENKAT K 786.2 COUGH 11/10/2012 ROSIO IRBY APRN T 275.42 HYPERCALCEMIA 11/10/2012 ROSIO IRBY APRN T 786.2 COUGH 11/10/2012 TIM DYER MD 275.42 HYPERCALCEMIA 11/10/2012 TIM DYER MD 786.2 COUGH 11/10/2012 MORRIS DO, VENKAT K 275.42 HYPERCALCEMIA 11/10/2012 MORRIS DO, VENKAT K 786.2 COUGH 11/10/2012 ABDULLAHI WHITMORE EMMA ISAAC 275.42 HYPERCALCEMIA 11/10/2012 ABDULLAHI WHITMORE EMMA JAVIERH 786.2 COUGH 11/10/2012 FERNANDORICK WHITMORE EMMA JAVIERH 275.42 HYPERCALCEMIA 11/10/2012 FERNANDORICK WHITMORE, EMMA JAVIERH 786.2 COUGH 11/10/2012 MORRIS DO, VENKAT K 275.42 HYPERCALCEMIA 11/10/2012 MORRIS DO, VENKAT K 786.2 COUGH 11/10/2012 ROSIO IRBY APRN 275.42 HYPERCALCEMIA 11/10/2012 ROSIO IRBY APRN 786.2 COUGH 11/10/2012 ABDULLAHI WHITMORE EMMA ISAAC 275.42 HYPERCALCEMIA 11/10/2012 ABDULLAHI WHITMORE EMMA JAVIERH 786.2 COUGH 11/10/2012 ROSIO IRBY APRN 275.42 HYPERCALCEMIA 11/10/2012 ROSIO IRBY APRN 786.2 COUGH 11/10/2012 ROSIO IRBY APRN 275.42 HYPERCALCEMIA 11/10/2012 ROSIO IRBY APRN 786.2 COUGH 11/10/2012 NERISSA MEYERS APRN 275.42 HYPERCALCEMIA 11/10/2012 LUIGI WHITMORE NERISSA 786.2 COUGH 11/10/2012 ROSIO IRBY APRN 275.42 HYPERCALCEMIA 11/10/2012 ROSIO IRBY APRN 786.2 COUGH 11/10/2012 MAHAMED CONVENTION WORKER, ROSIO T 275.42 HYPERCALCEMIA 11/10/2012 MAHAMED CONVENTION WORKER, ROSIO T 786.2 COUGH 11/10/2012 LUIGI CONVENTION WORKER, NERISSA 275.42 HYPERCALCEMIA 11/10/2012 LUIGI CONVENTION WORKER, NERISSA 786.2 COUGH 11/10/2012 MAHAMED CONVENTION WORKER, ROSIO T 275.42 HYPERCALCEMIA 11/10/2012 MAHAMED CONVENTION WORKER, ROSIO T 786.2 COUGH 11/10/2012 MAHAMED CONVENTION WORKER, ROSIO T 275.42 HYPERCALCEMIA 11/10/2012 MAHAMED CONVENTION WORKER, ROSIO T 786.2 COUGH 11/10/2012 MAHAMED CONVENTION WORKER, ROSIO T 275.42 HYPERCALCEMIA 11/10/2012 MAHAMED CONVENTION WORKER, ROSIO T 786.2 COUGH 11/10/2012 LUIGI CONVENTION WORKER, NERISSA 275.42 HYPERCALCEMIA 11/10/2012 LUIGI CONVENTION WORKER, NERISSA 786.2 COUGH 11/10/2012 LUIGI CONVENTION WORKER, NERISSA 275.42 HYPERCALCEMIA 11/10/2012 LUIGI CONVENTION WORKER, NERISSA 786.2 COUGH 11/17/2012 NICKO LEE, DEDE Mar Ot 724.5 BACKACHE NOS 11/24/2012 786.50 CHEST PAIN 11/24/2012 786.50 CHEST PAIN 11/24/2012 786.50 CHEST PAIN 11/24/2012 786.50 CHEST PAIN 11/24/2012 JB TUTTLE DO 786.50 CHEST PAIN 11/24/2012 ARTURO PITTS VENKAT K 786.50 CHEST PAIN 11/24/2012 ROSIO IRBY APRN T 786.50 CHEST PAIN 11/24/2012 GOMEZ LEE, TIM [place] 786.50 CHEST PAIN 11/24/2012 ARTURO PITTS VENKAT K 786.50 CHEST PAIN 11/24/2012 ABDULLAHI WHITMORE, EMMA ISAAC 786.50 CHEST PAIN 11/24/2012 ABDULLAHI WHITMORE, EMMA ISAAC 786.50 CHEST PAIN 11/24/2012 ARTURO PITTS, VENKAT K 786.50 CHEST PAIN 11/24/2012 ROSIO IRBY APRN T 786.50 CHEST PAIN 11/24/2012 ABDULLAHI WHITMORE, EMMA ISAAC 786.50 CHEST PAIN 11/24/2012 ROSIO IRBY APRN 786.50 CHEST PAIN 11/24/2012 ROSIO IRBY APRN T 786.50 CHEST PAIN 11/24/2012 LUIGINAZIA ROCHA APRNETTE 786.50 CHEST PAIN 11/24/2012 ROSIO IRBY APRN 786.50 CHEST PAIN 11/24/2012 ROSIO IRBY APRN T 786.50 CHEST PAIN 11/24/2012 LUIGI CONVENTION WORKER, NERISSA 786.50 CHEST PAIN 11/24/2012 ROSIO IRBY APRN T 786.50 CHEST PAIN 11/24/2012 MAHAMED WHITMORE, ROSIO T 786.50 CHEST PAIN 11/24/2012 MAHAMED WHITMORE, ROSIO T 786.50 CHEST PAIN 11/24/2012 LUIGI CONVENTION WORKER, NERISSA 786.50 CHEST PAIN 11/24/2012 LUIGI CONVENTION WORKER, NERISSA 786.50 CHEST PAIN 11/29/2012 V58.69 MEDICATION HIGH RISK 11/29/2012 V58.69 MEDICATION HIGH RISK 11/29/2012 JB TUTTLE DO 296.30 MO DEPRESSIVE RECURRENT UNSPECIFIED 11/29/2012 JB TUTTLE DO F V58.69 MEDICATION HIGH RISK 11/29/2012 ARTURO PITTS VENKAT K 296.30 MO DEPRESSIVE RECURRENT UNSPECIFIED 11/29/2012 ARTURO PITTS VENKAT K V58.69 MEDICATION HIGH RISK 11/29/2012 ROSIO IRBY APRN 296.30 MO DEPRESSIVE RECURRENT UNSPECIFIED 11/29/2012 ROSIO IRBY APRN V58.69 MEDICATION HIGH RISK 11/29/2012 TIM DYER MD 296.30 MO DEPRESSIVE RECURRENT UNSPECIFIED 11/29/2012 TIM DYER MD V58.69 MEDICATION HIGH RISK 11/29/2012 ARTURO PITTS VENKAT K 296.30 MO DEPRESSIVE RECURRENT UNSPECIFIED 11/29/2012 ARTURO PITTS VENKAT K V58.69 MEDICATION HIGH RISK 11/29/2012 ABDULLAHI WHITMORE EMMA PONCHO 296.30 MO DEPRESSIVE RECURRENT UNSPECIFIED 11/29/2012 ABDULLAHI WHITMORE EMMA PONCHO V58.69 MEDICATION HIGH RISK 11/29/2012 ABDULLAHI WHITMORE EMMA PONCHO 296.30 MO DEPRESSIVE RECURRENT UNSPECIFIED 11/29/2012 ABDULLAHI WHITMORE EMMA PONCHO V58.69 MEDICATION HIGH RISK 11/29/2012 MORRIS DO VENKAT K 296.30 MO DEPRESSIVE RECURRENT UNSPECIFIED 11/29/2012 MORRIS DO VENKAT K V58.69 MEDICATION HIGH RISK 11/29/2012 ROSIO IRBY APRN 296.30 MO DEPRESSIVE RECURRENT UNSPECIFIED 11/29/2012 ROSIO IRBY APRN V58.69 MEDICATION HIGH RISK 11/29/2012 ABDULLAHI MYRANDAEMMA 296.30 MO DEPRESSIVE RECURRENT UNSPECIFIED 11/29/2012 ABDULLAHI BATRESNEMMA V58.69 MEDICATION HIGH RISK 11/29/2012 ROSIO IRBY APRN T 296.30 MO DEPRESSIVE RECURRENT UNSPECIFIED 11/29/2012 ROSIO IRBY APRN T V58.69 MEDICATION HIGH RISK 11/29/2012 ROSIO IRBY APRN T 296.30 MO DEPRESSIVE RECURRENT UNSPECIFIED 11/29/2012 ROSIO IRBY APRN T V58.69 MEDICATION HIGH RISK 11/29/2012 LUIGI CONVENTION WORKER, NERISSA 296.30 MO DEPRESSIVE RECURRENT UNSPECIFIED 11/29/2012 LUIGI CONVENTION WORKER, NERISSA V58.69 MEDICATION HIGH RISK 11/29/2012 ROSIO IRBY APRN T 296.30 MO DEPRESSIVE RECURRENT UNSPECIFIED 11/29/2012 ROSIO IRBY APRN T V58.69 MEDICATION HIGH RISK 11/29/2012 ROSIO IRBY APRN T 296.30 MO DEPRESSIVE RECURRENT UNSPECIFIED 11/29/2012 ROSIO IRBY APRN T V58.69 MEDICATION HIGH RISK 11/29/2012 LUIGI CONVENTION WORKER, NERISSA 296.30 MO DEPRESSIVE RECURRENT UNSPECIFIED 11/29/2012 LUIGI CONVENTION WORKER, NERISSA V58.69 MEDICATION HIGH RISK 11/29/2012 ROSIO IRBY APRN T 296.30 MO DEPRESSIVE RECURRENT UNSPECIFIED 11/29/2012 ROSIO IRBY APRN T V58.69 MEDICATION HIGH RISK 11/29/2012 MAHAMED WHITMORE ROSIO T 296.30 MO DEPRESSIVE RECURRENT UNSPECIFIED 11/29/2012 ROSIO IRBY APRN T V58.69 MEDICATION HIGH RISK 11/29/2012 ROSIO IRBY APRN T 296.30 MO DEPRESSIVE RECURRENT UNSPECIFIED 11/29/2012 ROSIO IRBY APRN T V58.69 MEDICATION HIGH RISK 11/29/2012 LUIGI CONVENTION WORKER, NERISSA 296.30 MO DEPRESSIVE RECURRENT UNSPECIFIED 11/29/2012 LUIGI CONVENTION WORKER, NERISSA V58.69 MEDICATION HIGH RISK 11/29/2012 LUIGI CONVENTION WORKER, NERISSA 296.30 MO DEPRESSIVE RECURRENT UNSPECIFIED 11/29/2012 LUIGI CONVENTION WORKER, NERISSA V58.69 MEDICATION HIGH RISK 01/14/2013 TIM DYER MD Ot 041.12 METHICILLIN RESISTANT STAPHYLOCOCCUS AUR 01/14/2013 TIM DYER MD Ot 070.70 UNSPECIFIED VIRAL HEPATITIS C WITHOUT HE 01/14/2013 TIM DYER MD Ot 275.2 DIS MAGNESIUM METABOLISM 01/14/2013 TIM DEYR MD Ot 276.51 DEHYDRATION 01/14/2013 TIM DYER MD Ot 288.1 FUNCTION DIS NEUTROPHILS 01/14/2013 TIM DYER MD Ot 300.00 ANXIETY STATE NOS 01/14/2013 TIM DYER MD Ot 311 DEPRESSIVE DISORDER NEC 01/14/2013 TIM DYER MD Ot 345.90 EPILEPSY UNSPEC W/O MENTION INTRACTABLE 01/14/2013 TIM DYER MD Ot 401.9 HYPERTENSION NOS 01/14/2013 TIM DYER MD Ot 414.01 CORONARY ATHEROSCLEROSIS OF [place] CORON 01/14/2013 TIM DYER MD Ot 493.90 ASTHMA, UNSPECIFIED 01/14/2013 TIM DYER MD Ot 593.9 RENAL URETERAL DIS NOS 01/14/2013 TIM DYER MD, Ot 682.6 CELLULITIS OF LEG 01/14/2013 TIM DYER MD Ot V04.81 ND FOR PROPHYLACTIC VACCIN AND INOCULATI 01/14/2013 TIM DYER MD, Ot V45.82 PERCUTANEOUS TRANSLUM CORON ANGIOPLASTY 01/24/2013 VENKAT MORRIS DO 682.6 CELLULITIS AND ABSCESS OF LEG EXCEPT FOOT 01/24/2013 ROSIO IRBY APRN 682.6 CELLULITIS AND ABSCESS OF LEG EXCEPT FOOT 01/24/2013 TIM DYER MD 682.6 CELLULITIS AND ABSCESS OF LEG EXCEPT FOOT 01/24/2013 VENKAT MORRIS DO 682.6 CELLULITIS AND ABSCESS OF LEG EXCEPT FOOT 01/24/2013 EMMA FERNANDO APRN 682.6 CELLULITIS AND ABSCESS OF LEG EXCEPT FOOT 01/24/2013 EMMA FERNANDO APRN 682.6 CELLULITIS AND ABSCESS OF LEG EXCEPT FOOT 01/24/2013 VENKAT MORRIS DO 682.6 CELLULITIS AND ABSCESS OF LEG EXCEPT FOOT 01/24/2013 ROSIO IRBY APRN 682.6 CELLULITIS AND ABSCESS OF LEG EXCEPT FOOT 01/24/2013 EMMA FERNANDO APRN 682.6 CELLULITIS AND ABSCESS OF LEG EXCEPT FOOT 01/24/2013 ROSIO IRBY APRN 682.6 CELLULITIS AND ABSCESS OF LEG EXCEPT FOOT 01/24/2013 ROSIO IRBY APRN T 682.6 CELLULITIS AND ABSCESS OF LEG EXCEPT FOOT 01/24/2013 NERISSA MEYERS APRN 682.6 CELLULITIS AND ABSCESS OF LEG EXCEPT FOOT 01/24/2013 ROSIO IRBY APRN T 682.6 CELLULITIS AND ABSCESS OF LEG EXCEPT FOOT 01/24/2013 ROSIO IRBY APRN T 682.6 CELLULITIS AND ABSCESS OF LEG EXCEPT FOOT 01/24/2013 LUIGINAZIA ROCHA APRNETTE 682.6 CELLULITIS AND ABSCESS OF LEG EXCEPT FOOT 01/24/2013 ROSIO IRBY APRN T 682.6 CELLULITIS AND ABSCESS OF LEG EXCEPT FOOT 01/24/2013 ROSIO IRBY APRN T 682.6 CELLULITIS AND ABSCESS OF LEG EXCEPT FOOT 01/24/2013 ROSIO IRBY APRN T 682.6 CELLULITIS AND ABSCESS OF LEG EXCEPT FOOT 01/24/2013 LUIGINAZIA ROCHA APRNETTE 682.6 CELLULITIS AND ABSCESS OF LEG EXCEPT FOOT 01/24/2013 LUIGIAJ WHITMORE NERISSA 682.6 CELLULITIS AND ABSCESS OF LEG EXCEPT FOOT 03/05/2013 FERNANDORICK WHITMORE EMMA ISAAC 296.32 MO DEPRESSIVE RECURRENT MODERATE 03/05/2013 ABDULLAHI WHITMORE EMMA JAVIERH 300.3 AN OBCESS COMP DIS 03/05/2013 FERNANDORICK WHITMORE EMMA ISAAC 296.32 MO DEPRESSIVE RECURRENT MODERATE 03/05/2013 FERNANDORICK WHITMORE EMMA ISAAC 300.3 AN OBCESS COMP DIS 03/05/2013 VENKAT MORRIS DO K 296.32 MO DEPRESSIVE RECURRENT MODERATE 03/05/2013 VENKAT MORRIS DO K 300.3 AN OBCESS COMP DIS 03/05/2013 ROSIO IRBY APRN 296.32 MO DEPRESSIVE RECURRENT MODERATE 03/05/2013 ROSIO IRBY APRN 300.3 AN OBCESS COMP DIS 03/05/2013 ABDULLAHI WHITMORE EMMA PONCHO 296.32 MO DEPRESSIVE RECURRENT MODERATE 03/05/2013 ABDULLAHI WHITMORE EMMA PONCHO 300.3 AN OBCESS COMP DIS 03/05/2013 ROSIO IRBY APRN 296.32 MO DEPRESSIVE RECURRENT MODERATE 03/05/2013 ROSIO IRBY APRN 300.3 AN OBCESS COMP DIS 03/05/2013 ROSIO IRBY APRN T 296.32 MO DEPRESSIVE RECURRENT MODERATE 03/05/2013 ROSIO IRBY APRN T 300.3 AN OBCESS COMP DIS 03/05/2013 NAZIA MEYERS APRNETTE 296.32 MO DEPRESSIVE RECURRENT MODERATE 03/05/2013 NAZIA MEYERS APRNETTE 300.3 AN OBCESS COMP DIS 03/05/2013 ROSIO IRBY APRN T 296.32 MO DEPRESSIVE RECURRENT MODERATE 03/05/2013 ROSIO IRBY APRN T 300.3 AN OBCESS COMP DIS 03/05/2013 ROSIO IRBY APRN T 296.32 MO DEPRESSIVE RECURRENT MODERATE 03/05/2013 ROSIO IRBY APRN T 300.3 AN OBCESS COMP DIS 03/05/2013 NERISSA MEYERS APRN 296.32 MO DEPRESSIVE RECURRENT MODERATE 03/05/2013 NERISSA MEYERS APRN 300.3 AN OBCESS COMP DIS 03/05/2013 ROSIO IRBY APRN T 296.32 MO DEPRESSIVE RECURRENT MODERATE 03/05/2013 ROSIO IRBY APRN T 300.3 AN OBCESS COMP DIS 03/05/2013 ROSIO IRBY APRN T 296.32 MO DEPRESSIVE RECURRENT MODERATE 03/05/2013 ROSIO IRBY APRN T 300.3 AN OBCESS COMP DIS 03/05/2013 MAHAMED WHITMORE ROSIO T 296.32 MO DEPRESSIVE RECURRENT MODERATE 03/05/2013 ROSIO IRBY APRN T 300.3 AN OBCESS COMP DIS 03/05/2013 NAZIA MEYERS APRNETTE 296.32 MO DEPRESSIVE RECURRENT MODERATE 03/05/2013 NERISSA MEYERS APRN 300.3 AN OBCESS COMP DIS 03/05/2013 NERISSA MEYERS APRN 296.32 MO DEPRESSIVE RECURRENT MODERATE 03/05/2013 NERISSA MEYERS APRN 300.3 AN OBCESS COMP DIS 03/21/2013 MOHINDER MENA TECHNICIAN'S HELPER Ot 041.12 METHICILLIN RESISTANT STAPHYLOCOCCUS AUR 03/21/2013 MOHINDER MENA TECHNICIAN'S HELPER Ot 682.6 CELLULITIS OF LEG 03/30/2013 DEDE MAHARAJ MD Ot 599.71 GROSS HEMATURIA 03/30/2013 DEDE MAHARAJ MD Ot 724.2 LUMBAGO 03/30/2013 DEDE MAHARAJ MD Ot 724.4 LUMBOSACRAL NEURITIS NOS 07/22/2013 VENKAT MORRIS DO Ot 070.70 UNSPECIFIED VIRAL HEPATITIS C WITHOUT HE 07/22/2013 VENKAT MORRIS DO Ot 276.8 HYPOPOTASSEMIA 07/22/2013 VENKAT MORRIS DO Ot 300.00 ANXIETY STATE NOS 07/22/2013 ROBY MORRIS DOA K Ot 303.90 ALCOH DEP NEC/NOS-UNSPEC 07/22/2013 VENKAT MORRIS DO K Ot 305.70 AMPHETAMINE ABUSE-UNSPEC 07/22/2013 VENKAT MORRIS DO K Ot 345.90 EPILEPSY UNSPEC W/O MENTION INTRACTABLE 07/22/2013 VENKAT MORRIS DO K Ot 401.9 HYPERTENSION NOS 07/22/2013 VENKAT MORRIS DO Ot 414.01 CORONARY ATHEROSCLEROSIS OF [place] CORON 07/22/2013 VENKAT MORRIS DO K Ot 572.2 HEPATIC ENCEPHALOPATHY 07/22/2013 VENKAT MORRIS DO K Ot 584.9 ACUTE RENAL FAILURE, UNSPECIFIED 07/22/2013 VENKAT MORRIS DO Ot 728.88 RHABDOMYOLYSIS 07/22/2013 VENKAT MORRIS DO Ot 780.57 UNSPECIFIED SLEEP APNEA 07/22/2013 VENKAT MORRIS DO Ot V45.82 PERCUTANEOUS TRANSLUM CORON ANGIOPLASTY 09/19/2013 EMMA FERNANDO APRN 311 DEPRESSIVE DISORDER NOS 09/19/2013 ROSIO IRBY APRN 311 DEPRESSIVE DISORDER NOS 09/19/2013 ROSIO IRBY APRN 311 DEPRESSIVE DISORDER NOS 09/19/2013 NERISSA MEYERS APRN 311 DEPRESSIVE DISORDER NOS 09/19/2013 ROSIO IRBY APRN 311 DEPRESSIVE DISORDER NOS 09/19/2013 ROSIO IRBY APRN 311 DEPRESSIVE DISORDER NOS 09/19/2013 NERISSA MEYERS APRN 311 DEPRESSIVE DISORDER NOS 09/19/2013 ROSIO IRBY APRN 311 DEPRESSIVE DISORDER NOS 09/19/2013 ROSIO IRBY APRN 311 DEPRESSIVE DISORDER NOS 09/19/2013 ROSIO IRBY APRN 311 DEPRESSIVE DISORDER NOS 09/19/2013 NERISSA MEYERS APRN 311 DEPRESSIVE DISORDER NOS 09/19/2013 NERISSA MEYERS APRN 311 DEPRESSIVE DISORDER NOS 01/27/2014 NERISSA MEYERS APRN 296.32 MO DEPRESSIVE RECURRENT MODERATE 01/27/2014 ROSIO IRBY APRN 296.32 MO DEPRESSIVE RECURRENT MODERATE 01/27/2014 ROSIO IRBY APRN 296.32 MO DEPRESSIVE RECURRENT MODERATE 01/27/2014 NERISSA MEYERS APRN 296.32 MO DEPRESSIVE RECURRENT MODERATE 01/27/2014 MAHAMED CONVENTION WORKER, ROSIO T 296.32 MO DEPRESSIVE RECURRENT MODERATE 01/27/2014 MAHAMED CONVENTION WORKER, ROSIO T 296.32 MO DEPRESSIVE RECURRENT MODERATE 01/27/2014 MAHAMED CONVENTION WORKER, ROSIO T 296.32 MO DEPRESSIVE RECURRENT MODERATE 01/27/2014 LUIGI CONVENTION WORKER, NERISSA 296.32 MO DEPRESSIVE RECURRENT MODERATE 01/27/2014 LUIGI CONVENTION WORKER, NERISSA 296.32 MO DEPRESSIVE RECURRENT MODERATE 02/01/2014 MAHAMED CONVENTION WORKER, ROSIO T V04.81 FLU SHOT 02/01/2014 LUIGI CONVENTION WORKER, NERISSA V04.81 FLU SHOT 02/01/2014 MAHAMED CONVENTION WORKER, ROSIO T V04.81 FLU SHOT 02/01/2014 MAHAMED CONVENTION WORKERROSIO Salazar T V04.81 FLU SHOT 02/01/2014 MAHAMED CONVENTION WORKER, ROSIO T V04.81 FLU SHOT 02/01/2014 LUIGI CONVENTION WORKER, NERISSA V04.81 FLU SHOT 02/01/2014 LUIGI CONVENTION WORKER, NERISSA V04.81 FLU SHOT 03/17/2014 ROSIO IRBY TECHNICIAN'S HELPER Ot 070.54 03/17/2014 ROSIO IRBY TECHNICIAN'S HELPER Ot 401.1 03/17/2014 ROSIO IRBY TECHNICIAN'S HELPER Ot 780.79 03/17/2014 ROSIO IRBY TECHNICIAN'S HELPER Ot 785.2 03/17/2014 ROSIO IRBY TECHNICIAN'S HELPER Ot 786.50 03/17/2014 Ot 041.12 03/17/2014 Ot 682.6 03/18/2014 MARIA FERNANDA LEE, LEIGHTON T Ot 276.8 HYPOPOTASSEMIA 03/18/2014 MARIA FERNANDA LEE, LEIGHTON T Ot 584.9 ACUTE RENAL FAILURE, UNSPECIFIED 03/18/2014 MARIA FERNANDA LEE, LEIGHT[place] T Ot 599.0 URIN TRACT INFECTION NOS 03/18/2014 MARIA FERNANDA LEE, LEIGHT[place] T Ot 780.97 ALTERED MENTAL STATUS 03/18/2014 ROSIO IRBY TECHNICIAN'S HELPER Ot 070.54 03/18/2014 ROSIO IRBY TECHNICIAN'S HELPER Ot 401.1 03/18/2014 ROSIO IRBY TECHNICIAN'S HELPER Ot 780.79 03/18/2014 ROSIO IRBY TECHNICIAN'S HELPER Ot 785.2 03/18/2014 ROSIO IRBY TECHNICIAN'S HELPER Ot 786.50 03/18/2014 Ot 041.12 03/18/2014 Ot 682.6 03/29/2014 MAHAMED CONVENTION WORKER, ROSIO T 276.8 HYPOPOTASSEMIA 03/29/2014 MAHAMED CONVENTION WORKER, ROSIO T 723.1 PAIN NECK 03/29/2014 MAHAMED CONVENTION WORKER, ROSIO T 276.8 HYPOPOTASSEMIA 03/29/2014 MAHAMED CONVENTION WORKER, ROSIO T 723.1 PAIN NECK 03/29/2014 LUIGI CONVENTION WORKER, NERISSA 276.8 HYPOPOTASSEMIA 03/29/2014 LUIGI CONVENTION WORKER, NERISSA 723.1 PAIN NECK 03/29/2014 LUIGI CONVENTION WORKER, NERISSA 276.8 HYPOPOTASSEMIA 03/29/2014 LUIGI CONVENTION WORKER, NERISSA 723.1 PAIN NECK 04/20/2014 LUIGI CONVENTION WORKER, NERISSA 296.35 MO DEPRESSIVE RECURRENT IN PART OR UNSPECIFIED REMISSION 04/20/2014 LUIGI CONVENTION WORKER, NERISSA 300.02 AN GEN ANXIETY 04/20/2014 LUIGI CONVENTION WORKER, NERISSA 296.35 MO DEPRESSIVE RECURRENT IN PART OR UNSPECIFIED REMISSION 04/20/2014 LUIGI WHITMORE NERISSA 300.02 AN GEN ANXIETY 02/15/2015 ROSIO IRBYP Ot 070.54 02/15/2015 ROSIO IRBYP Ot 401.1 02/15/2015 ROSIO IRBYP Ot 780.79 02/15/2015 ROSIO IRBYP Ot 785.2 02/15/2015 ROSIO IRBYP Ot 786.50 02/15/2015 Ot 041.12 02/15/2015 Ot 682.6 02/16/2015 ROSIO IRBY Ot 070.54 02/16/2015 ROSIO IRBYP Ot 401.1 02/16/2015 ROSIO IRBY TECHNICIAN'S HELPER Ot 780.79 02/16/2015 ROSIO IRBYP Ot 785.2 02/16/2015 ROSIO IRBYP Ot 786.50 02/16/2015 Ot 041.12 02/16/2015 Ot 682.6 02/21/2015 ROSIO IRBYP Ot B18.2 03/13/2015 ROSIO IRBYP Ot B18.2 03/27/2015 ROSIO IRBYP Ot B18.2 08/02/2016 ROSIO IRBYP Ot 070.54 CHRONIC HEPATITIS C W/O HEPATIC COMA 08/02/2016 MAHAMED, ROSIO T TECHNICIAN'S HELPER Ot 401.1 BENIGN HYPERTENSION 08/02/2016 MAHAMEDROSIO TECHNICIAN'S HELPER Ot 780.79 OTH MALAISE FATIGUE 08/02/2016 MAHAMEDROSIO TECHNICIAN'S HELPER Ot 785.2 CARDIAC MURMURS NEC 08/02/2016 MAHAMED ROSIO Otero TECHNICIAN'S HELPER Ot 786.50 CHEST PAIN NOS 08/02/2016 Ot 041.12 METHICILLIN RESISTANT STAPHYLOCOCCUS AUR 08/02/2016 Ot 682.6 CELLULITIS OF LEG 08/02/2016 ROSIO IRBY TECHNICIAN'S HELPER Ot B18.2 CHRONIC VIRAL HEPATITIS C 08/02/2016 TARA SANABRIA MD Ot H44.9 UNSPECIFIED DISORDER OF GLOBE 08/02/2016 TARA SANABRIA MD Ot I10 ESSENTIAL (PRIMARY) HYPERTENSION 08/02/2016 TARA SANABRIA MD Ot J06.9 ACUTE UPPER RESPIRATORY INFECTION, UNSPE 08/02/2016 TARA SANABRIA MD Ot R06.00 DYSPNEA, UNSPECIFIED 08/02/2016 TARA SANABRIA MD Ot Z79.82 PRISON (CURRENT) USE OF ASPIRIN 08/02/2016 TARA SANABRIA MD Ot Z79.899 OTHER PRISON (CURRENT) DRUG THERAPY 08/02/2016 MAHAMED ROSIO Otero TECHNICIAN'S HELPER Ot 070.54 CHRONIC HEPATITIS C W/O HEPATIC COMA 08/02/2016 MAHAMED ROSIO Otero TECHNICIAN'S HELPER Ot 401.1 BENIGN HYPERTENSION 08/02/2016 MAHAMED ROSIO Otero TECHNICIAN'S HELPER Ot 780.79 OTH MALAISE FATIGUE 08/02/2016 MAHAMED ROSIO JOHNSONP Ot 785.2 CARDIAC MURMURS NEC 08/02/2016 MAHAMED ROSIO JOHNSONP Ot 786.50 CHEST PAIN NOS 08/02/2016 Ot 041.12 METHICILLIN RESISTANT STAPHYLOCOCCUS AUR 08/02/2016 Ot 682.6 CELLULITIS OF LEG 08/02/2016 ROSIO IRBY TECHNICIAN'S HELPER Ot B18.2 CHRONIC VIRAL HEPATITIS C 08/04/2016 TARA SANABRIA MD Ot H44.9 UNSPECIFIED DISORDER OF GLOBE 08/04/2016 TARA SANABRIA MD Ot I10 ESSENTIAL (PRIMARY) HYPERTENSION 08/04/2016 TARA SANABRIA MD A Ot J06.9 ACUTE UPPER RESPIRATORY INFECTION, UNSPE 08/04/2016 TARA SANABRIA MD Ot R06.00 DYSPNEA, UNSPECIFIED 08/04/2016 TARA SANABRIA MD Ot Z79.82 DINING CAR WAITER/WAITRESS (CURRENT) USE OF ASPIRIN 08/04/2016 TARA SANABRIA MD A Ot Z79.899 OTHER DINING CAR WAITER/WAITRESS (CURRENT) DRUG THERAPY 09/16/2016 TARA SANABRIA MD Ot H44.9 UNSPECIFIED DISORDER OF GLOBE 09/16/2016 TARA SANABRIA MD Ot I10 ESSENTIAL (PRIMARY) HYPERTENSION 09/16/2016 TARA SANABRIA MD Ot J06.9 ACUTE UPPER RESPIRATORY INFECTION, UNSPE 09/16/2016 TARA SANABRIA MD Ot R06.00 DYSPNEA, UNSPECIFIED 09/16/2016 TARA SANABRIA MD Ot Z79.82 PRISON (CURRENT) USE OF ASPIRIN 09/16/2016 TARA SANABRIA MD Ot Z79.899 OTHER PRISON (CURRENT) DRUG THERAPY Procedures Code Description Performed By Performed On 94.62 ALCOHOL DETOXIFICATION 05/10/2012 96029 ROUTINE VENIPUNCTURE 07/27/2012 58120 CMP 07/27/2012 55183 MAGNESIUM 07/27/2012 99419 CBC 07/27/2012 72329 ROUTINE VENIPUNCTURE 09/02/2012 91350 CBC 09/02/2012 88762 CMP 09/02/2012 50080 LIPID PANEL 09/02/2012 2404754 GFR CALC (RESULT ONLY) 09/02/2012 11764 VITAMIN D 25-HYDROXY (D2,D3 , TOTAL) 09/02/2012 32356 TSH 09/02/2012 13063 EKG, TRACING (IN-HOUSE) 11/04/2012 11151 ECHO 2D 11/04/2012 01794 ROUTINE VENIPUNCTURE 11/10/2012 54154 XRAY CHEST 2 VIEW 11/10/2012 64194 PT/INR 11/10/2012 46823 CALCIUM IONIZED 11/11/2012 50138 CALCIUM 11/11/2012 55554 HEP C PCR QUANT (SERIAL) 11/17/2012 68501 A1C (IN-HOUSE) 11/24/2012 05726 ROUTINE VENIPUNCTURE 11/29/2012 56674 CMP 11/29/2012 23011 MAGNESIUM 11/29/2012 60120 TSH 11/29/2012 64892 CBC 11/29/2012 INFECTIOU AJSON, CLINIC 12/06/2012 18857 ROUTINE VENIPUNCTURE 12/07/2012 96328 AFP TUMOR MARKER 12/08/2012 92488 GENOTYPE DNA HEPATITIS C 12/09/2012 86.04 OTHER SKIN SUBQ I D 01/13/2013 Physical Wound Care, Mtc 02/21/2013 94.62 ALCOHOL DETOXIFICATION 07/19/2013 00835 ROUTINE VENIPUNCTURE 12/07/2013 49909 PTH (intact) (ORDER ONLY) 12/07/2013 87534 URINE DRUG SCREEN (IN-HOUSE ) 12/07/2013 5224261 GFR CALC (RESULT ONLY) 12/07/2013 24903 CMP 12/07/2013 68142 LIPID PANEL 12/07/2013 77929 CBC 12/07/2013 38515 TSH 12/07/2013 01691 HEP B SURFACE ANTIGEN (RML) 12/07/2013 23095 HEP A ANTIBODY, IGM (RML) 12/07/2013 90344 HIV ANTIBODIES (RML) 12/07/2013 1518461 CALCIUM (RESULT ONLY) 12/08/2013 7660018 PTH INTACT KIKO (RESULT ONLY) 12/08/2013 66856 HEP B SURFACE ANTIBODY 12/08/2013 39307 ROUTINE VENIPUNCTURE 01/30/2014 56816 HEP C PCR QUANT (SERIAL) 01/30/2014 05518 URINE DRUG SCREEN (IN-HOUSE ) 01/30/2014 43250 URINE DRUG SCREEN (IN-HOUSE ) 03/13/2014 76340 ROUTINE VENIPUNCTURE 2014 03658 URINE DRUG SCREEN (IN-HOUSE ) 2014 0981346 GFR CALC (RESULT ONLY) 2014 23103 BMP 2014 20723 MAGNESIUM 2014 Results Test Result Range CBC With Differential/Platelet - 01/31/16 11:16 WBC 7.9 x10E3/uL 3.4-10.8 RBC 5.50 x10E6/uL 4.14-5.80 Hemoglobin 16.6 g/dL 12.6-17.7 Hematocrit 48.2 % 37.5-51.0 MCV 88 fL 79-97 MCH 30.2 pg 26.6-33.0 MCHC 34.4 g/dL 31.5-35.7 RDW 13.2 % 12.3-15.4 Platelets 129 x10E3/uL 150-379 Neutrophils 50 % Lymphs 38 % Monocytes 9 % Eos 3 % Basos 0 % Neutrophils (Absolute) 3.9 x10E3/uL 1.4-7.0 Lymphs (Absolute) 3.0 x10E3/uL 0.7-3.1 Monocytes(Absolute) 0.7 x10E3/uL 0.1-0.9 Eos (Absolute) 0.3 x10E3/uL 0.0-0.4 Baso (Absolute) 0.0 x10E3/uL 0.0-0.2 Immature Granulocytes 0 % Immature Grans (Abs) 0.0 x10E3/uL 0.0-0.1 Comp. Metabolic Panel (14) - 01/31/16 11:16 Glucose, Serum 110 mg/dL 65-99 BUN 16 mg/dL 6-24 Creatinine, Serum 1.43 mg/dL 0.76-1.27 eGFR If NonAfricn Am 54 mL/min/1.73 >59 eGFR If Africn Am 62 mL/min/1.73 >59 BUN/Creatinine Ratio 11 9-20 Sodium, Serum 140 mmol/L 136-144 Potassium, Serum 4.5 mmol/L 3.5-5.2 Chloride, Serum 100 mmol/L 97-106 Carbon Dioxide, Total 22 mmol/L 18-29 Calcium, Serum 10.6 mg/dL 8.7-10.2 Protein, Total, Serum 7.9 g/dL 6.0-8.5 Albumin, Serum 4.5 g/dL 3.5-5.5 Globulin, Total 3.4 g/dL 1.5-4.5 A/G Ratio 1.3 1.1-2.5 Bilirubin, Total 0.5 mg/dL 0.0-1.2 Alkaline Phosphatase, S 118 IU/L 39-117 AST (SGOT) 28 IU/L 0-40 ALT (SGPT) 20 IU/L 0-44 HCV RT-PCR, Quant (Non-Graph) - 01/31/16 11:16 Hepatitis C Quantitation HCV Not Detected IU/mL Test Information: Comment Magnesium, Serum - 01/31/16 11:16 Magnesium, Serum 1.9 mg/dL 1.6-2.3 Ammonia, Plasma - 01/31/16 11:16 Ammonia, Plasma 61 ug/dL 27-102 CBC With Differential/Platelet - 05/09/16 10:51 WBC 8.6 x10E3/uL 3.4-10.8 RBC 5.10 x10E6/uL 4.14-5.80 Hemoglobin 16.1 g/dL 12.6-17.7 Hematocrit 44.9 % 37.5-51.0 MCV 88 fL 79-97 MCH 31.6 pg 26.6-33.0 MCHC 35.9 g/dL 31.5-35.7 RDW 13.2 % 12.3-15.4 Platelets 122 x10E3/uL 150-379 Neutrophils 56 % Lymphs 32 % Monocytes 8 % Eos 4 % Basos 0 % Neutrophils (Absolute) 4.8 x10E3/uL 1.4-7.0 Lymphs (Absolute) 2.8 x10E3/uL 0.7-3.1 Monocytes(Absolute) 0.7 x10E3/uL 0.1-0.9 Eos (Absolute) 0.3 x10E3/uL 0.0-0.4 Baso (Absolute) 0.0 x10E3/uL 0.0-0.2 Immature Granulocytes 0 % Immature Grans (Abs) 0.0 x10E3/uL 0.0-0.1 Comp. Metabolic Panel (14) - 05/09/16 10:51 Glucose, Serum 109 mg/dL 65-99 BUN 13 mg/dL 6-24 Creatinine, Serum 1.24 mg/dL 0.76-1.27 eGFR If NonAfricn Am 63 mL/min/1.73 >59 eGFR If Africn Am 73 mL/min/1.73 >59 BUN/Creatinine Ratio 10 9-20 Sodium, Serum 140 mmol/L 134-144 Potassium, Serum 4.5 mmol/L 3.5-5.2 Chloride, Serum 101 mmol/L 96-106 Carbon Dioxide, Total 27 mmol/L 18-29 Calcium, Serum 10.1 mg/dL 8.7-10.2 Protein, Total, Serum 7.4 g/dL 6.0-8.5 Albumin, Serum 4.4 g/dL 3.5-5.5 Globulin, Total 3.0 g/dL 1.5-4.5 A/G Ratio 1.5 1.1-2.5 Bilirubin, Total 0.3 mg/dL 0.0-1.2 Alkaline Phosphatase, S 113 IU/L 39-117 AST (SGOT) 31 IU/L 0-40 ALT (SGPT) 21 IU/L 0-44 Lipid Panel - 05/09/16 10:51 Cholesterol, Total 175 mg/dL 100-199 Triglycerides 181 mg/dL 0-149 HDL Cholesterol 29 mg/dL >39 VLDL Cholesterol Kirit 36 mg/dL 5-40 LDL Cholesterol Calc 110 mg/dL 0-99 Ammonia, Plasma - 05/09/16 10:51 Ammonia, Plasma 19 ug/dL 27-102 CBC With Differential/Platelet - 12/08/16 11:20 WBC 6.8 x10E3/uL 3.4-10.8 RBC 4.98 x10E6/uL 4.14-5.80 Hemoglobin 15.8 g/dL 12.6-17.7 Hematocrit 44.8 % 37.5-51.0 MCV 90 fL 79-97 MCH 31.7 pg 26.6-33.0 MCHC 35.3 g/dL 31.5-35.7 RDW 13.5 % 12.3-15.4 Platelets 166 x10E3/uL 150-379 Neutrophils 50 % Lymphs 38 % Monocytes 9 % Eos 3 % Basos 0 % Neutrophils (Absolute) 3.4 x10E3/uL 1.4-7.0 Lymphs (Absolute) 2.6 x10E3/uL 0.7-3.1 Monocytes(Absolute) 0.6 x10E3/uL 0.1-0.9 Eos (Absolute) 0.2 x10E3/uL 0.0-0.4 Baso (Absolute) 0.0 x10E3/uL 0.0-0.2 Immature Granulocytes 0 % Immature Grans (Abs) 0.0 x10E3/uL 0.0-0.1 Comp. Metabolic Panel (14) - 12/08/16 11:20 Glucose, Serum 106 mg/dL 65-99 BUN 14 mg/dL 6-24 Creatinine, Serum 1.29 mg/dL 0.76-1.27 eGFR If NonAfricn Am 60 mL/min/1.73 >59 eGFR If Africn Am 70 mL/min/1.73 >59 BUN/Creatinine Ratio 11 9-20 Sodium, Serum 139 mmol/L 134-144 Potassium, Serum 4.3 mmol/L 3.5-5.2 Chloride, Serum 98 mmol/L 96-106 Carbon Dioxide, Total 25 mmol/L 18-29 Calcium, Serum 10.4 mg/dL 8.7-10.2 Protein, Total, Serum 7.7 g/dL 6.0-8.5 Albumin, Serum 4.4 g/dL 3.5-5.5 Globulin, Total 3.3 g/dL 1.5-4.5 A/G Ratio 1.3 1.2-2.2 Bilirubin, Total 0.5 mg/dL 0.0-1.2 Alkaline Phosphatase, S 108 IU/L 39-117 AST (SGOT) 29 IU/L 0-40 ALT (SGPT) 24 IU/L 0-44 CMP - 01/26/17 11:31 Glucose, Serum 116 mg/dL 65-99 BUN 7 mg/dL 6-24 Creatinine, Serum 1.25 mg/dL 0.76-1.27 eGFR If NonAfricn Am 63 mL/min/1.73 >59 eGFR If Africn Am 72 mL/min/1.73 >59 BUN/Creatinine Ratio 6 9-20 Sodium, Serum 142 mmol/L 134-144 Potassium, Serum 4.2 mmol/L 3.5-5.2 Chloride, Serum 98 mmol/L 96-106 Carbon Dioxide, Total 28 mmol/L 18-29 Calcium, Serum 10.0 mg/dL 8.7-10.2 Protein, Total, Serum 7.1 g/dL 6.0-8.5 Albumin, Serum 4.0 g/dL 3.5-5.5 Globulin, Total 3.1 g/dL 1.5-4.5 A/G Ratio 1.3 1.2-2.2 Bilirubin, Total 0.4 mg/dL 0.0-1.2 Alkaline Phosphatase, S 127 IU/L 39-117 AST (SGOT) 27 IU/L 0-40 ALT (SGPT) 19 IU/L 0-44 CBC With Differential/Platelet - 01/26/17 11:31 WBC 8.3 x10E3/uL 3.4-10.8 RBC 4.93 x10E6/uL 4.14-5.80 Hemoglobin 15.5 g/dL 12.6-17.7 Hematocrit 44.2 % 37.5-51.0 MCV 90 fL 79-97 MCH 31.4 pg 26.6-33.0 MCHC 35.1 g/dL 31.5-35.7 RDW 13.5 % 12.3-15.4 Platelets 212 x10E3/uL 150-379 Neutrophils 59 % Not Estab. Lymphs 30 % Not Estab. Monocytes 8 % Not Estab. Eos 3 % Not Estab. Basos 0 % Not Estab. Neutrophils (Absolute) 4.8 x10E3/uL 1.4-7.0 Lymphs (Absolute) 2.5 x10E3/uL 0.7-3.1 Monocytes(Absolute) 0.6 x10E3/uL 0.1-0.9 Eos (Absolute) 0.3 x10E3/uL 0.0-0.4 Baso (Absolute) 0.0 x10E3/uL 0.0-0.2 Immature Granulocytes 0 % Not Estab. Immature Grans (Abs) 0.0 x10E3/uL 0.0-0.1 Comp. Metabolic Panel (14) - 01/26/17 11:31 Glucose, Serum 116 mg/dL 65-99 BUN 7 mg/dL 6-24 Creatinine, Serum 1.25 mg/dL 0.76-1.27 eGFR If NonAfricn Am 63 mL/min/1.73 >59 eGFR If Africn Am 72 mL/min/1.73 >59 BUN/Creatinine Ratio 6 9-20 Sodium, Serum 142 mmol/L 134-144 Potassium, Serum 4.2 mmol/L 3.5-5.2 Chloride, Serum 98 mmol/L 96-106 Carbon Dioxide, Total 28 mmol/L 18-29 Calcium, Serum 10.0 mg/dL 8.7-10.2 Protein, Total, Serum 7.1 g/dL 6.0-8.5 Albumin, Serum 4.0 g/dL 3.5-5.5 Globulin, Total 3.1 g/dL 1.5-4.5 A/G Ratio 1.3 1.2-2.2 Bilirubin, Total 0.4 mg/dL 0.0-1.2 Alkaline Phosphatase, S 127 IU/L 39-117 AST (SGOT) 27 IU/L 0-40 ALT (SGPT) 19 IU/L 0-44 Uric Acid, Serum - 01/26/17 11:31 Uric Acid, Serum 8.6 mg/dL 3.7-8.6 Sedimentation Rate-Westergren - 01/26/17 11:31 Sedimentation Rate-[facility] 19 mm/hr 0-30 CBC - 03/16/17 10:15 WHITE BLOOD CELL COUNT 8.6 Thousand/uL 3.8-10.8 RED BLOOD CELL COUNT 5.06 Million/uL 4.20-5.80 HEMOGLOBIN 15.9 g/dL 13.2-17.1 HEMATOCRIT 45.3 % 38.5-50.0 MCV 89.5 fL 80.0-100.0 MCH 31.4 pg 27.0-33.0 MCHC 35.1 g/dL 32.0-36.0 RDW 12.5 % 11.0-15.0 PLATELET COUNT 190 Thousand/uL 140-400 MPV 10.6 fL 7.5-12.5 ABSOLUTE NEUTROPHILS 5134 cells/uL 0351-3801 ABSOLUTE LYMPHOCYTES 2589 cells/uL 850-3900 ABSOLUTE MONOCYTES 817 cells/uL 200-950 ABSOLUTE EOSINOPHILS 9 cells/uL 15-500 ABSOLUTE BASOPHILS 52 cells/uL 0-200 NEUTROPHILS 59.7 % NRG LYMPHOCYTES 30.1 % NRG MONOCYTES 9.5 % NRG EOSINOPHILS 0.1 % NRG BASOPHILS 0.6 % NRG AMMONIA - 03/16/17 10:15 AMMONIA (P) 35 umol/L < OR=47 PDM - ATS (PROFILE 8 WITH CONFIRMATION) - 07/17/17 09:18 Prescribed Drug 1 Xanax(TM) NRG Creatinine 74.8 mg/dL > or=20.0 pH 5.24 4.5 - 9.0 Oxidant NEGATIVE mcg/mL <200 Amphetamines NEGATIVE ng/mL <500 medMATCH Amphetamines CONSISTENT NRG Benzodiazepines POSITIVE ng/mL <100 Marijuana Metabolite NEGATIVE ng/mL <20 medMATCH Marijuana Metab CONSISTENT NRG Cocaine Metabolite NEGATIVE ng/mL <150 medMATCH Cocaine Metab CONSISTENT NRG Opiates NEGATIVE ng/mL <100 medMATCH Opiates CONSISTENT NRG Oxycodone NEGATIVE ng/mL <100 medMATCH Oxycodone CONSISTENT NRG COMMENT NRG Buprenorphine NEGATIVE ng/mL <5 MDMA NEGATIVE ng/mL <500 medMATCH MDMA CONSISTENT NRG Alcohol Metabolites POSITIVE ng/mL <500 6 Acetylmorphine NEGATIVE ng/mL <10 medMATCH 6 Acetylmorphine CONSISTENT NRG Alphahydroxyalprazolam 83 ng/mL <25 medMATCH aOH alprazolam CONSISTENT NRG Alphahydroxymidazolam NEGATIVE ng/mL <50 medMATCH aOH midazolam CONSISTENT NRG Alphahydroxytriazolam NEGATIVE ng/mL <50 medMATCH aOH triazolam CONSISTENT NRG Aminoclonazepam NEGATIVE ng/mL <25 medMATCH Aminoclonazepam CONSISTENT NRG Hydroxyethylflurazepam NEGATIVE ng/mL <50 medMATCH OH,Et flurazepam CONSISTENT NRG Lorazepam NEGATIVE ng/mL <50 medMATCH Lorazepam CONSISTENT NRG Nordiazepam NEGATIVE ng/mL <50 medMATCH Nordiazepam CONSISTENT NRG Oxazepam NEGATIVE ng/mL <50 medMATCH Oxazepam CONSISTENT NRG Temazepam NEGATIVE ng/mL <50 medMATCH Temazepam CONSISTENT NRG medMATCH Buprenorphine CONSISTENT NRG Ethyl Glucuronide (ETG) 943160 ng/mL <500 medMATCH ETG INCONSISTENT NRG Ethyl Sulfate (ETS) 94855 ng/mL <100 medMATCH ETS INCONSISTENT NRG Complete blood count (CBC) with automated white blood cell (WBC) differential - 02/08/18 19:28 Blood leukocytes automated count (number/volume) 7.6 10*3/uL 4.3-11.0 Blood erythrocytes automated count (number/volume) 4.79 10*6/uL 4.35-5.85 Venous blood hemoglobin measurement (mass/volume) 15.3 g/dL 13.3-17.7 Blood hematocrit (volume fraction) 42 % 40-54 Automated erythrocyte mean corpuscular volume 87 [foz_us] 80-99 Automated erythrocyte mean corpuscular hemoglobin (mass per erythrocyte) 32 pg 25-34 Automated erythrocyte mean corpuscular hemoglobin concentration measurement ( mass/volume) 37 g/dL 32-36 Automated erythrocyte distribution width ratio 12.2 % 10.0-14.5 Automated blood platelet count (count/volume) 153 10*3/uL 130-400 Automated blood platelet mean volume measurement 10.0 [foz_us] 7.4-10.4 Automated blood neutrophils/100 leukocytes 51 % 42-75 Automated blood lymphocytes/100 leukocytes 37 % 12-44 Blood monocytes/100 leukocytes 9 % 0-12 Automated blood eosinophils/100 leukocytes 3 % 0-10 Automated blood basophils/100 leukocytes 0 % 0-10 Blood neutrophils automated count (number/volume) 3.9 10*3 1.8-7.8 Blood lymphocytes automated count (number/volume) 2.8 10*3 1.0-4.0 Blood monocytes automated count (number/volume) 0.7 10*3 0.0-1.0 Automated eosinophil count 0.2 10*3/uL 0.0-0.3 Automated blood basophil count (count/volume) 0.0 10*3/uL 0.0-0.1 Comprehensive metabolic panel - 02/08/18 19:28 Serum or plasma sodium measurement (moles/volume) 135 mmol/L 135-145 Serum or plasma potassium measurement (moles/volume) 3.9 mmol/L 3.6-5.0 Serum or plasma chloride measurement (moles/volume) 100 mmol/L 98-107 Carbon dioxide 22 mmol/L 21-32 Serum or plasma anion gap determination (moles/volume) 13 mmol/L 5-14 Serum or plasma urea nitrogen measurement (mass/volume) 18 mg/dL 7-18 Serum or plasma creatinine measurement (mass/volume) 1.39 mg/dL 0.60-1.30 Serum or plasma urea nitrogen/creatinine mass ratio 13 NRG Serum or plasma creatinine measurement with calculation of estimated glomerular filtration rate 52 NRG Serum or plasma glucose measurement (mass/volume) 86 mg/dL 70-105 Serum or plasma calcium measurement (mass/volume) 11.7 mg/dL 8.5-10.1 Serum or plasma total bilirubin measurement (mass/volume) 0.5 mg/dL 0.1-1.0 Serum or plasma alkaline phosphatase measurement (enzymatic activity/volume) 70 U/L 40-136 Serum or plasma aspartate aminotransferase measurement (enzymatic activity/ volume) 39 U/L 5-34 Serum or plasma alanine aminotransferase measurement (enzymatic activity/volume ) 30 U/L 0-55 Serum or plasma protein measurement (mass/volume) 7.8 g/dL 6.4-8.2 Serum or plasma albumin measurement (mass/volume) 4.5 g/dL 3.2-4.5 CALCIUM CORRECTED 11.3 mg/dL 8.5-10.1 Lipase - 02/08/18 19:28 Lipase 47 U/L 8-78 Complete urinalysis with reflex to culture - 02/08/18 19:41 Urine color determination YELLOW NRG Urine clarity determination CLEAR NRG Urine pH measurement by test strip 5 5-9 Specific gravity of urine by test strip 1.020 1.016- 1.022 Urine protein assay by test strip, semi-quantitative NEGATIVE NEGATIVE Urine glucose detection by automated test strip NEGATIVE NEGATIVE Erythrocytes detection in urine sediment by light microscopy NEGATIVE NEGATIVE Urine ketones detection by automated test strip 1+ NEGATIVE Urine nitrite detection by test strip NEGATIVE NEGATIVE Urine total bilirubin detection by test strip NEGATIVE NEGATIVE Urine urobilinogen measurement by automated test strip (mass/volume) NORMAL NORMAL Urine leukocyte esterase detection by dipstick 1+ NEGATIVE Automated urine sediment erythrocyte count by microscopy (number/high power field) RARE NRG Automated urine sediment leukocyte count by microscopy (number/high power field ) [HPF] NRG Bacteria detection in urine sediment by light microscopy FEW NRG Squamous epithelial cells detection in urine sediment by light microscopy 0-2 NRG Crystals detection in urine sediment by light microscopy NONE NRG Casts detection in urine sediment by light microscopy NONE NRG Mucus detection in urine sediment by light microscopy NEGATIVE NRG Complete urinalysis with reflex to culture YES NRG Encounters ACCT No. Visit Date/Time Discharge Status Pt. Type Provider Facility Loc./Unit Complaint [id number] 04/20/2014 10:34:00 04/20/2014 23:59:59 CLS Outpatient NERISSA MEYERS APRN [id number] 04/20/2014 10:34:00 04/20/2014 23:59:59 CLS Outpatient NERISSA MEYERS APRN [id number] 2014 12:01:00 2014 23:59:59 CLS Outpatient ROSIO IRBY APRN [id number] 03/29/2014 16:18:00 03/29/2014 23:59:59 CLS Outpatient ROSIO IRBY APRN [id number] 03/13/2014 12:11:00 03/13/2014 23:59:59 CLS Outpatient ROSIO IRBY APRN [id number] 02/28/2014 09:53:00 02/28/2014 23:59:59 CLS Outpatient NERISSA MEYERS APRN [id number] 02/01/2014 09:53:00 02/01/2014 23:59:59 CLS Outpatient ROSIO IRBY APRN [id number] 01/30/2014 15:41:00 01/30/2014 23:59:59 CLS Outpatient ROSIO IRBY APRN [id number] 01/27/2014 12:54:00 01/27/2014 23:59:59 CLS Outpatient NERISSA MEYERS APRN [id number] 12/07/2013 10:26:00 12/07/2013 23:59:59 CLS Outpatient ROSIO IRBY APRN [id number] 11/09/2013 11:32:00 11/09/2013 23:59:59 CLS Outpatient ROSIO IRBY APRN [id number] 09/19/2013 10:14:00 09/19/2013 23:59:59 CLS Outpatient EMMA FERNANDO APRN [id number] 09/16/2013 12:05:00 09/16/2013 23:59:59 CLS Outpatient ROSIO IRBY APRN [id number] 08/09/2013 08:53:00 08/09/2013 23:59:59 CLS Outpatient ARTURO PITTS VENKAT Enciso [id number] 06/18/2013 13:39:00 06/18/2013 23:59:59 CLS Outpatient EMMA FERNANDO APRN [id number] 03/05/2013 09:59:00 03/05/2013 23:59:59 CLS Outpatient EMMA FERNANDO APRN [id number] 02/15/2013 05:41:00 02/15/2013 23:59:59 CLS Outpatient TIM DYER MD [id number] 01/28/2013 09:42:00 01/28/2013 23:59:59 CLS Outpatient ROSIO IRBY APRN [id number] 01/24/2013 15:09:00 01/24/2013 23:59:59 CLS Outpatient ARTURO VENKAT [id number] 01/21/2013 00:00:00 01/21/2013 23:59:59 CLS Outpatient ARTURO PITTSVENKAT [id number] 12/29/2012 11:17:00 12/29/2012 23:59:59 CLS Outpatient JB TUTTLE DO [id number] 05/26/2012 13:16:00 05/26/2012 23:59:59 CLS Outpatient SAUD STEEL MD [id number] 03/03/2012 00:00:00 03/03/2012 23:59:59 CLS Outpatient [id number] 01/30/2012 09:03:00 01/30/2012 23:59:59 CLS Outpatient [id number] 12/07/2012 12:02:00 Document Registration [id number] 12/06/2012 11:13:00 Document Registration [id number] 11/29/2012 09:36:00 Document Registration [id number] 11/04/2012 00:00:00 Document Registration [id number] 09/22/2012 10:15:00 Document Registration [id number] 09/02/2012 08:53:00 Document Registration [id number] 08/27/2012 09:16:00 Document Registration [id number] 08/03/2012 09:28:00 Document Registration [id number] 07/27/2012 10:22:00 Document Registration [id number] 10/27/2017 11:40:00 10/27/2017 23:59:59 CLS Outpatient MAHAMED WHITMORE [facility] [id number] 07/17/2017 08:40:00 Document Registration [id number] 03/16/2017 10:40:00 Document Registration [id number] 01/26/2017 10:50:00 Document Registration [id number] 01/27/2017 10:10:00 Document Registration [id number] 02/03/2016 07:05:00 Document Registration [id number] 05/10/2016 08:36:00 Document Registration [id number] 12/09/2016 08:06:00 Document Registration [id number] 05/10/2016 10:07:00 Document Registration [id number] 08/02/2016 19:28:00 08/02/2016 20:55:00 DIS Emergency TARA SANABRIA MD [facility] ER TROUBLE BREATHING [id number] 02/16/2015 11:21:00 02/16/2015 23:59:59 CLS Outpatient ROSIO IRBY [facility] RAD CHRONIC HEP C, WORSENING AMMONIA LEVELS [id number] 03/17/2014 18:03:00 03/18/2014 00:45:00 DIS Emergency LEIGHTON IRVING MD [facility] ER AMS [id number] 07/19/2013 20:18:00 07/22/2013 13:05:00 DIS Inpatient ROBY MORRIS DOA K [facility] 4TH AMS,ACUTE ON CHRONIC HEPATITIS,ARF [id number] 03/30/2013 09:46:00 03/30/2013 11:06:00 DIS Emergency DEDE MAHARAJ MD [facility] ER BACK PAIN [id number] 03/07/2013 11:00:00 03/21/2013 11:39:00 DIS Outpatient MOHINDER MENA [facility] WOUNDCARE CELLULITIS, LEFT LEG [id number] 01/09/2013 21:12:00 01/14/2013 13:00:00 DIS Inpatient GOMEZ LEE, TIM [place] [facility] 4TH CELLULITIS L LEG, DEHYDRATION [id number] 11/29/2012 10:46:00 11/29/2012 23:59:59 CLS Outpatient ROSIO IRBY [facility] CARD CP, MURMUR [id number] 11/17/2012 14:36:00 11/17/2012 16:10:00 DIS Emergency NICKO LEE, DEDE Mar [facility] ER MULTIPLE COMPLAINTS [id number] 11/03/2012 21:09:00 11/04/2012 06:35:00 DIS Outpatient ROSIO IRBY [facility] SLEEP WINDY,EXCESSIVE DAYTIME SLEEPINESS,MORNING HEADACHE [id number] 02/08/2018 19:41:00 Document Registration [id number] 03/22/2013 14:00:00 Document Registration [id number] 05/10/2012 14:34:00 Document Registration [id number] 12/05/2011 14:14:00 Document Registration
== END 2018-02-08 21:10 | disposition home or self-care (01) ==
LOC: EDUNIT# 18:46 → ER 18:47
DX: N39.0 Urinary tract infection, site not specified (principal); G47.30 Sleep apnea, unspecified; J44.9 Chronic obstructive pulmonary disease, unspecified; B19.20 Unspecified viral hepatitis C without hepatic coma; F41.9 Anxiety disorder, unspecified; F32.9 Major depressive disorder, single episode, unspecified; I11.0 Hypertensive heart disease with heart failure; I50.9 Heart failure, unspecified; F17.200 Nicotine dependence, unspecified, uncomplicated; Z86.73 Personal history of transient ischemic attack (TIA), and cerebral infarction without residual deficits; Z79.82 Long term (current) use of aspirin; Z95.5 Presence of coronary angioplasty implant and graft
CPT/HCPCS: 36415; 80053; 81000; 83690; 85025; 87088

== ENCOUNTER 2018-08-15 15:13 | Emergency (ER) | payer MEDICARE ==
[~2018-08-15] VITALS: Ht 182.9 cm; Wt 104.3 kg
[~2018-08-15 15:13] MED LIST changes: +ONDA4TAB8 SL; +SULF1TAB35 PO
--- OUTSIDE RECORDS SUMMARY | 2018-08-15 15:20 | XMS REPORT ---
Author Author Migration, Doctor Organization [facility] Address Unknown Phone Unavailable Care Team Providers Care Enrolled Nurse Name Role Phone Migration, Doctor Unavailable Unavailable PROBLEMS Type Condition ICD9-CM Code EIO17-QC Code Onset Dates Condition Status SNOMED Code Problem Allergic rhinitis, unspecified allergic rhinitis type J30.9 Active 64606873 Problem Hyperammonemia E72.20 Active 4892295 Problem Obsessive compulsive disorder F42 Active 291626614 Problem Mood disorder F39 Active 02426971 Problem Seasonal allergic rhinitis due to other allergic trigger J30.89 Active 144650264 Problem Chronic hepatitis C without hepatic coma B18.2 Active 761769179 Problem Anxiety F41.9 Active 17291410 Problem History of alcohol abuse Z87.898 Active 196309000 Problem Hypertension, benign I10 Active 29744611 Problem Generalized anxiety disorder F41.1 Active 89466202 Problem Other chronic pain G89.29 Active 90289500 Problem Mild episode of recurrent major depressive disorder F33.0 Active 058682589 ALLERGIES No Information ENCOUNTERS Encounter Location Date Diagnosis [place] [id number] [place] [address] 03246- 9230 Sep, [place] [id number] [place] [address] 71968- 0254 August, [place] [address] [place] [id number] [place] [address] 87683- 7473 Jul, [place] [address] [place] [id number] [place] [address] 91931- 8917 Jul, Encounter for Medicare annual wellness exam Z00.00 ; Hypertension, benign I10 ; Allergic rhinitis, unspecified allergic rhinitis type J30.9 ; History of alcohol abuse Z87.898 ; Chronic hepatitis C without hepatic coma B18.2 and Mild episode of recurrent major depressive disorder F33.0 [facility] [id number] [place] [address] 59737- 5000 Jun, Anxiety F41.9 [facility] [id number] [place] [address] 23724- 0178 Jun, Mild episode of recurrent major depressive disorder F33.0 [facility] [id number] [place] [address] 63868- 3463 May, Mood disorder F39 ; Generalized anxiety disorder F41.1 ; Mild episode of recurrent major depressive disorder F33.0 and Anxiety F41.9 [facility] [id number] [place] [address] 57521- 5967 Mar, Anxiety F41.9 and Seasonal allergic rhinitis due to other allergic trigger J30.89 [place] [address] [address] [id number] [place] [address] 25293- 7900 Feb, [place] [address] 81413- 1629 Feb, Generalized anxiety disorder F41.1 ; Eczema of both hands L30.9 and Encounter for immunization Z23 [facility] [id number] [place] [address] 34094- 9346 Feb, Chronic hepatitis C without hepatic coma B18.2 [place] [address] [address] [id number] [place] [address] 58431- 6382 Jan, Mood disorder F39 [facility] [address] [id number] [place] [address] 72247- 9710 Jan, Chronic hepatitis C without hepatic coma B18.2 [facility] [id number] [place] [address] 22915- 6063 Dec, Mild episode of recurrent major depressive disorder F33.0 ; Other chronic pain G89.29 ; Pain in left shoulder M25.512 and Pain in right shoulder M25.511 [facility] [id number] [place] [address] 08303- 2806 Dec, Chronic hepatitis C without hepatic coma B18.2 [place] [address] [place] [address] 9811 Nov, Chronic hepatitis C without hepatic coma B18.2 [facility] [id number] [place] [address] 10648- 7373 Oct, Bronchitis J40 [facility] [id number] [place] [address] 84344- 4127 10 Oct, 2017 Chronic hepatitis C without hepatic coma B18.2 and Cough R05 [facility] [id number] [place] [address] 61732- 7895 Sep, Chronic hepatitis C without hepatic coma B18.2 [facility] [id number] [place] [address] 29784- 2842 August, Chronic hepatitis C without hepatic coma B18.2 [facility] [id number] [place] [address] 41366- 6477 Jul, Chronic hepatitis C without hepatic coma B18.2 [facility] [id number] [place] [address] 33977- 3960 Jul, Generalized anxiety disorder F41.1 ; Mood disorder F39 and History of hepatitis C Z86.19 [facility] [id number] [place] [address] 85225- 6454 Jul, Chronic hepatitis C without hepatic coma B18.2 [facility] [id number] [place] [address] 55606- 1708 Jun, Chronic hepatitis C without hepatic coma B18.2 [facility] [id number] [place] [address] 69822- 1081 Jun, [facility] [id number] [place] [address] 11809- 6761 May, Chronic hepatitis C without hepatic coma B18.2 [facility] [id number] [place] [address] 69616- 6483 May, Hypertension, benign I10 [facility] [id number] [place] [address] 79480- 5958 Apr, Chronic hepatitis C without hepatic coma B18.2 [facility] [address] 34295- 0186 Apr, Hypertension, benign I10 [facility] [address] 60262- 9022 Mar, Chronic hepatitis C without hepatic coma B18.2 [facility] [address] 22850- 6350 Mar, Hypertension, benign I10 [place] [address] 70360- 7575 Mar, Hypertension, benign I10 ; Encounter for immunization Z23 and Strain of right Achilles tendon, initial encounter S86.011A [place] [address] 16893- 6050 Feb, Chronic hepatitis C without hepatic coma B18.2 [facility] [address] 93217- 1998 Jan, Chronic hepatitis C without hepatic coma B18.2 [facility] [address] 06537 -8987 Jan, Toe pain, right M79.674 and Cellulitis of foot, right L03.115 [place] [address] 62076- 7230 Dec, Chronic hepatitis C without hepatic coma B18.2 [facility] [address] 84314- 2321 Nov, Chronic hepatitis C without hepatic coma B18.2 and Eczema of both hands L30.9 [facility] [address] 87995- 0619 Nov, [facility] [address] [id number] [place] [address] 26574- 1986 Oct, [facility] [id number] [place] [address]- 8516 Sep, [facility] [id number] [place] [address]- 5828 August, [facility] [id number] [place] [address]- 7786 August, [facility] [id number] [place] [address]- 8441 Jul, [facility] [address] [place] [id number] [place] [address]- 0673 Jul, [facility] [id number] [place] [address]- 7901 Jun, [facility] [id number] [place] [address]- 7590 Jun, [facility] [address] [place] [address]- 6339 May, [facility] [address] [place] [address]- 6014 Apr, Chronic hepatitis C without hepatic coma B18.2 ; Hyperglycemia R73.9 and Hypertension, benign I10 [facility] [address] [place] [address]- 6378 Apr, Chronic hepatitis C without hepatic coma B18.2 ; Mood disorder F39 ; Hypertension, benign I10 and Hyperglycemia R73.9 [facility] [address] [place] [address]- 7236 Apr, [facility] [id number] [place] [address]- 5911 Apr, [facility] [address] [place] [address]- 9579 Apr, [facility] [address] [place] [address]- 3504 Feb, [facility] [address] [address]- 2586 Feb, [facility] [address] [place] [id number] [place] [address] 67855- 7568 Feb, [facility] [address] [place] [address] [id number] [place] [address], [place] [address]- 7281 Feb, [facility] [address] [place] [address] [id number] [place] [address] 50803- 5979 Jan, [facility] [address] [place] [address] [id number] [place] [address] 60181- 1562 Jan, Chronic hepatitis C without hepatic coma B18.2 ; Mood disorder F39 ; Encounter for immunization Z23 and Chronic viral hepatitis C B18.2 [facility] [address] [place] [id number] [place] [address] 42513- 0219 Jan, [facility] [address] [place] [id number] [place] [address] 25107- 9520 Jan, [facility] [address] [place] [address] [id number] [place] [address] 72385- 5473 Dec, [facility] [address] [id number] [place] [address] 85466- 9685 Dec, [facility] [id number] [place] [address] 64776- 0109 Nov, [facility] [id number] [place] [address] 11717- 0703 Nov, Weakness of both legs M62.81 [facility] [id number] [place] [address]- 4265 Nov, [facility] [address] [place] [id number] [place] [address], [place] [address]- 4336 Nov, [facility] [address] [address]- 8817 Nov, [facility] [address] [place] [address] [id number] [place] [address] 48425- 2919 Nov, Eczema, unspecified type L30.9 [facility] [address] [place] [id number] [place] [address] 93080- 1879 Nov, [facility] [address] [place] [id number] [place] [address] 86145- 1608 Nov, Eczema, unspecified type L30.9 ; Cessation of tobacco use in previous 12 months Z87.891 and Weakness of both legs M62.81 [facility] [address] [place] [id number] [place] [address] 49297- 0248 Oct, [facility] [address] [place] [id number] [place] [address] 19375- 2831 Oct, [facility] [address] [place] [id number] [place] [address] 60494- 6050 Oct, [place] [address] [place] [id number] [place] [address] 11355- 3799 Oct, Chronic viral hepatitis C B18.2 [place] [address] [place] [id number] [place] [address] 99696- 4783 Sep, [place] [address] [place] [id number] [place] [address] 86806- 9510 Sep, 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 and Generalized anxiety disorder F41.1 [place] [address] [place] [id number] [place] [address] 41447- 8188 Sep, [place] [address] [place] [id number] [place] [address] 23866- 1381 August, [facility] [id number] [place] [address] 64981- 6595 August, Hyperammonemia E72.20 [place] [address] [place] [id number] [place] [address] 59497- 1408 August, Hyperammonemia E72.20 [place] [address] [place] [id number] [place] [address] 54944- 4380 August, Hyperammonemia E72.20 and Chronic hepatitis C without hepatic coma B18.2 [facility] [address] [place] [address]- 8486 August, Chronic viral hepatitis C B18.2 [facility] [id number] [place] [address]- 6376 August, [facility] [address] [place] [address] [id number] [place] [address], [place] [address]- 3606 Jul, Chronic viral hepatitis C B18.2 and Hyperammonemia E72.20 [facility] [id number] [place] [address], [place] [address]- 0026 Jul, Chronic viral hepatitis C B18.2 [facility] [address] [place] [address]- 7715 Jul, [facility] [address] [place] [address] [id number] [place] [address], [place] [address]- 8001 Jul, [facility] [address] [address]- 0934 Jun, [facility] [address] [address]- 3625 Jun, Chronic viral hepatitis C B18.2 and Hyperammonemia E72.20 [facility] [address] [address]- 1376 Jun, [facility] [address] [address]- 2546 18 Jun, 2015 [facility] [address] [address]- 5566 16 Jun, 2015 Chronic viral hepatitis C B18.2 [facility] [address] [address]- 1546 10 Jun, 2015 [facility] [address] [address]- 7032 Jun, Chronic viral hepatitis C B18.2 [facility] [address] [address]- 1321 May, Hepatitis C, chronic B18.2 and Chronic viral hepatitis C B18.2 [facility] [address] [id number] [address]- 7476 May, [facility] [address] [place] [id number] [place] [address] 19028- 6104 Apr, [facility] [address] [id number] [place] [address] 11787- 9505 Apr, Chronic viral hepatitis C B18.2 and Hyperammonemia E72.20 [facility] [address] [place] [id number] [place] [address] 56045- 9122 Apr, Chronic viral hepatitis C B18.2 [place] [address] [place] [id number] [place] [address] 48465- 9538 Apr, Hyperammonemia E72.20 [facility] [address] [place] [id number] [place] [address] 87558- 5351 Apr, [facility] [address] [place] [id number] [place] [address] 98617- 2916 Apr, [facility] [id number] [place] [address] 77275- 0166 Apr, Chronic hepatitis C without hepatic coma B18.2 ; Hyperammonemia E72.20 and Chronic viral hepatitis C B18.2 [facility] [address] [address]- 0607 Mar, Shortness of breath R06.02 [facility] [address] [place] [id number] [place] [address] 62950- 6190 Mar, Mood disorder F39 and Major depressive disorder, recurrent episode, unspecified 296.30 [facility] [address] [place] [id number] [place] [address] 75608- 1292 Mar, [place] [address] [place] [id number] [place] [address] 13611- 6472 18 Mar, 2015 [facility] [id number] [place] [address] 48300- 2776 15 Mar, 2015 [facility] [id number] [place] [address] 94577 -2320 Mar, Seasonal allergies J30.2 ; Shortness of breath R06.02 and Cough R05 [facility] [address] [id number] [place] [address] 16243- 7951 Mar, Hyperammonemia E72.20 ; Mood disorder F39 and History of alcohol abuse Z87.898 [facility] [address] [id number] [place] [address] 37962- 1109 Mar, Hyperammonemia E72.20 [facility] [address] 94885- 1409 Mar, [facility] [address] [place] [id number] [place] [address] 99253- 4471 Feb, [facility] [id number] [place] [address] 13219- 8704 Feb, [facility] [id number] [place] [address] 52044- 1370 Feb, Hyperammonemia E72.20 [facility] [address] [id number] [place] [address] 77290- 8834 Feb, [facility] [id number] [place] [address] 18211- 0520 Feb, [facility] [address] 36967- 1524 Feb, [facility] [id number] [place] [address] 56525- 9900 Feb, [facility] [address] 33672- 1733 Feb, Chronic viral hepatitis C B18.2 [facility] [id number] [place] [address] 11251- 2814 Feb, Chronic viral hepatitis C B18.2 [facility] [id number] [place] [address] 23526- 5776 Feb, [facility] [id number] [place] [address] 36463- 7600 Feb, Chronic viral hepatitis C B18.2 and Confusion R41.0 [facility] [id number] [place] [address] 47199- 6826 Feb, [facility] [id number] [place] [address] 53101- 8116 Jan, [facility] [id number] [place] [address] 57723- 0038 Jan, Confusion R41.0 [facility] [id number] [place] [address] 14674- 5901 Jan, [facility] [id number] [place] [address] 59301- 9408 Jan, [facility] [id number] [place] [address] 80195- 1784 Jan, [facility] [id number] [place] [address] 94245- 9984 Jan, [facility] [id number] [place] [address] 61050- 6310 Jan, Chronic viral hepatitis C B18.2 and 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 [facility] [id number] [place] [address] 00353- 1712 Jan, [facility] [id number] [place] [address] 07147- 9188 Jan, [facility] [id number] [place] [address] 49742- 3893 Jan, [facility] [id number] [place] [address] 60456- 2007 Jan, [facility] [address] 33833- 8961 Jan, Chronic viral hepatitis C B18.2 [facility] [address] 83375- 6865 Jan, [facility] [address] 07068- 7752 Jan, Back pain at L4-L5 level M54.5 and Confusion R41.0 [place] [address] 60024- 5989 Jan, [facility] [address] 66453- 0432 30 Dec, 2014 Chronic viral hepatitis C B18.2 and Flu vaccine need V04.81 [facility] [address] 85615- 2854 30 Dec, 2014 Chronic viral hepatitis C B18.2 [place] [address] 04525- 4676 Dec, [facility] [id number] [place] [address] 39066- 8417 Dec, Polyuria 788.42 [place] [address] 62525- 9436 Dec, Polyuria 788.42 ; Polydipsia 783.5 ; Dizziness 780.4 and Hepatitis C, chronic 070.54 [place] [address] 03091- 8237 10 Dec, 2014 Major depressive disorder, recurrent episode, unspecified 296.30 and Generalized anxiety disorder 300.02 [facility] [address] 50896- 2105 Nov, [facility] [address] 6326 Nov, [facility] [address] 8551 Nov, [facility] [address] 4304 Oct, [facility] [id number] [place] [address] 51713- 4209 Sep, [facility] [id number] [place] [address] 74746- 4764 August, Obsessive-compulsive disorders 300.3 ; Generalized anxiety disorder 300.02 and Major depressive disorder, recurrent episode, unspecified 296.30 [facility] [address] [address]- 5424 August, Chronic hepatitis C without mention of hepatic coma 070.54 ; Hypertension 401.9 and Seasonal allergies 477.9 [facility] [address], [place] [address]- 3820 Jul, [facility] [address], [place] [address]- 3593 Jul, [facility] [address], [place] [address]- 3101 Jun, [facility] [address], [place] [address]- 2039 Jun, [facility] [address] [address]- 0188 May, [facility] [address] 2067 May, [facility] [address] 8023 May, [facility] [address] 8604 May, [facility] [address] [place] [address]- 8583 Apr, [facility] [address] [id number] [place] [address]- 3846 Apr, [facility] [address] [id number] [place] [address]- 7055 Apr, [facility] [address] [id number] [place] [address]- 9386 Apr, [facility] [address] [id number] [place] [address]- 4654 Apr, [facility] [address] [id number] [place] [address]- 8125 Apr, [facility] [address] [id number] [place] [address]- 1308 Mar, [facility] [address] [id number] [place] [address]- 2924 Mar, [facility] [address] [id number] [place] [address]- 4521 Mar, [facility] [address] [id number] [place] [address]- 6412 Mar, [facility] [address] [id number] [place] [address]- 2926 Mar, [facility] [address] [id number] [place] [address] Mar, [facility] [address] [id number] [place] [address] Mar, [facility] [place] [facility] [address] [id number] [place] [address] Mar, [facility] [place] [facility] [address] [id number] [place] [address] Mar, [facility] [place] [facility] [address] [id number] [place] [address] Feb, [facility] [place] [facility] [address] [id number] [place] [address] Feb, [facility] [place] [facility] [address] [id number] [place] [address] Feb, [facility] [place] [facility] [address] [id number] [place] [address] Feb, [facility] [place] [facility] [address] [id number] [place] [address] Feb, [facility] [place] [facility] [address] [id number] [place] [address] Jan, [facility] [place] [facility] [address] [id number] [place] [address] Jan, [facility] [place] [facility] [address] [id number] [place] [address]- [address] Jan, [facility] [place] [facility] [address] [id number] [place] [address] Jan, [facility] [place] [facility] [address] [id number] [place] [address] Jan, [facility] [place] [facility] [address] [id number] [place] [address]- [address] Jan, [facility] [place] [facility] [address] [address] [id number] [place] [address] Jan, [facility] [place] [facility] [address] [id number], [place] [address] Jan, [facility] [place] [facility] [address] [id number] [place] [address] 86[address] Jan, [facility] [place] [facility] [address] [id number] [place] [address] Nov, [facility] [place] [facility] [address] [id number] [place] [address] Nov, [facility] [place] [facility] [address] [id number], [place] [address] Nov, [facility] [place] [facility] [address] [id number] [place] [address]997 Oct, [facility] [place] [facility] [address] [id number] [place] [address] 48[address] Oct, [facility] [place] [facility] [address] [id number] [place] [address]179 Oct, [facility] [place] [facility] [address] [id number] [place] [address] 4289 Oct, [facility] [place] [facility] [address] [id number] [place] [address]116 Sep, [facility] [place] [facility] [address] [id number] [place] [address] Sep, [facility] [place] [facility] [address] [id number] [place] [address] 6766 Sep, [facility] [place] [facility] [address] [id number] [place] [address] 1539 Sep, [facility] [place] [facility] [address] [id number] [place] [address] 6890 Sep, [facility] [place] [facility] [address] [id number] [place] [address]- 5818 Sep, [facility] [place] [facility] [address] [id number] [place] [address] 9356 August, [facility] [place] [facility] [address] [id number] [place] [address]- 5929 August, [facility] [place] [facility] [address] [id number] [place] [address]- 4539 Jul, [facility] [place] [facility] [address] [id number] [place] [address] 0516 Jul, [facility] [place] [facility] [address] [id number] [place] [address] 8202 Jul, [facility] [place] [facility] [address] [id number] [place] [address]- 5958 Jul, [facility] [place] [facility] [address] [id number] [place] [address]- 7575 Jul, [facility] [place] [facility] [address] [id number] [place] [address]- 5055 Jul, [facility] [place] [facility] [address] [id number] [place] [address]- 6614 Jul, [facility] [place] [facility] [address] [id number] [place] [address]- 8312 Jul, [facility] [place] [facility] [address] [id number] [place] [address]- 9025 Jul, [facility] [place] [facility] [address] [id number] [place] [address] 8012 Jul, [facility] [place] [facility] [address] [id number] [place] [address]- 7424 Jun, [facility] [place] [facility] [address] [id number] [place] [address] 3133 Jun, [facility] [place] [facility] [address] [id number] [place] [address]- 4290 Jun, [facility] [place] [facility] [address] [id number] [place] [address] Jun, [facility] [place] [facility] [address] [id number] [place] [address]- 6961 May, [facility] [place] [facility] [address] [id number] [place] [address]- 8942 May, [facility] [place] [facility] [address] [id number] [place] [address]- 5708 May, [facility] [place] [facility] [address] [id number] [place] [address]- 4377 May, [facility] [place] [facility] [address] [id number] [place] [address] 5639 10 May, 2013 [facility] [address] [id number] [place] [address] 5636 10 May, 2013 [facility] [place] [facility] [address] [id number] [place] [address] 0283 16 Mar, 2013 [facility] [place] [facility] [address] [id number] [place] [address]- 5605 16 Mar, 2013 [facility] [place] [facility] [address] [id number] [place] [address]- 0290 16 Mar, 2013 [facility] [address] [id number] [place] [address]- 5976 Mar, [facility] [place] [facility] [address] [id number] [place] [address]- 7409 Mar, [facility] [address] [id number] [place] [address]- 5081 Mar, [facility] [place] [facility] [address] [id number] [place] [address]- 8581 Feb, [facility] [address] [id number] [place] [address]- 9801 Feb, [facility] [place] [facility] [address] [id number] [place] [address]- 5305 Feb, [facility] [place] [facility] [address] [id number], [place] [address] 1148 Feb, [facility] [place] [facility] [address] [id number], [place] [address]- 6965 Feb, [facility] [place] [facility] [address] [id number], [place] [address]- 9009 Feb, [facility] [place] [facility] [address] [id number], [place] [address]- 6[address] Feb, [facility] [place] [facility] [address] [id number] [place] [address]- 8394 Feb, [facility] [place] [facility] [address] [id number] [place] [address]- 3233 18 Jan, 2012 [facility] [place] [facility] [address] [id number] [place] [address]- 1532 18 Jan, 2012 [facility] [place] [facility] [address] [id number] [place] [address]- 7066 17 Jan, 2012 [facility] [place] [facility] [address] [id number] [place] [address]- 4818 16 Jan, 2012 [facility] [place] [facility] [address] [id number] [place] [address]- 0577 16 Jan, 2012 [facility] [place] [facility] [address] [id number] [place] [address]- 2644 14 Jan, 2012 [facility] [place] [facility] [address] [id number] [place] [address]- 8286 14 Jan, 2012 [facility] [place] [facility] [address] [id number] [place] [address]- 4253 11 Jan, 2012 [facility] [place] [facility] [address] [id number] [place] [address]- 9565 11 Jan, 2013 [facility] [place] [facility] [address] [id number] [place] [address]- 6854 10 Jan, 2013 [facility] [place] [facility] [address] [id number] [place] [address]- 2059 27 Dec, 2012 [facility] [place] [facility] [address] [id number] [place] [address]- 7965 18 Dec, 2012 [facility] [place] [facility] [address] [id number] [place] [address]- 2209 18 Dec, 2012 [facility] [place] [facility] [address] [id number] [place] [address]- 3552 30 Nov, 2012 [facility] [place] [facility] [address] [id number] [place] [address]- 3995 29 Nov, 2012 [facility] [place] [facility] [address] [id number] [place] [address]- 6267 Nov, [facility] [place] [facility] [address] [id number] [place] [address]- 8368 Nov, [facility] [place] [facility] [address] [id number] [place] [address]- 5895 Nov, [facility] [place] [facility] [address] [id number] [place] [address]- 5050 Nov, [facility] [place] [facility] [address] [id number] [place] [address]- 7376 Nov, [facility] [place] [facility] [address] [id number] [place] [address]- 6772 Nov, [facility] [place] [facility] [address] [id number] [place] [address]- 5371 Nov, [facility] [place] [facility] [address] [id number] [place] [address]- 5958 Nov, [facility] [place] [facility] [address] [id number] [place] [address]- 4082 Oct, [facility] [place] [facility] [address] [id number] [place] [address]- 9487 Oct, [facility] [place] [facility] [address] [id number] [place] [address]- 0675 Oct, [facility] [place] [facility] [address] [id number] [place] [address]- 4977 Oct, [facility] [place] [facility] [address] [id number] [place] [address]- 6269 Oct, [facility] [place] [facility] [address] [id number] [place] [address]- 9840 Oct, [facility] [place] [facility] [address] [id number] [place] [address]- 4031 Oct, [facility] [place] [facility] [address] [id number] [place] [address]- 1070 Oct, [facility] [place] [facility] [address] [id number] [place] [address]- 0655 Sep, [facility] [place] [facility] [address] [id number] [place] [address]- 8166 Sep, [facility] [place] [facility] [address] [id number] [place] [address]- 1480 Sep, [facility] [place] [facility] [address] [id number] [place] [address]- 3945 Sep, [facility] [place] [facility] [address] [id number] [place] [address]- 4642 August, [facility] [place] [facility] [address] [id number] [place] [address]- 3447 August, [facility] [place] [facility] [address] [id number] [place] [address]- 1376 August, [facility] [address] [id number] Jul, [facility] [address] [id number] Jul, [facility] [place] [facility] [address] [id number] [place] [address]- 6876 Jun, [facility] [place] [facility] [address] [id number] [place] [address]- 2133 May, [facility] [place] [facility] [address] [id number] [place] [address]- 0964 May, [facility] [place] [facility] [address] [id number] [place] [address]- 5152 Apr, [facility] [place] [facility] [address] [id number] [place] [address]- 6801 Feb, [facility] [place] [facility] [address] [id number] [place] [address]- 1555 Feb, [facility] [place] [facility] [address] [id number] [place] [address]- 6072 Jan, [facility] [place] [facility] [address] [id number] [place] [address]- 9593 Jan, [facility] [address] [id number] [place] [address]- 2465 Jan, [facility] [address] [id number] [place] [address]- 4566 Jan, [facility] [address] [facility] [id number] [place] [address]- 2546 Jan, [facility] [address] [id number], [place] [address]- 2546 Dec, [facility] [address] [facility] [id number] [place] [address]- 2036 Dec, [facility] [address] [id number] [id number] Nov, [facility] [address] [id number] [place] [address]- 8236 Nov, [facility] [address] [id number], [place] [address]- 0813 Nov, [facility] [address] [id number] [place] [address]- 5183 Nov, [facility] [address] [id number], [place] [address]- 3256 August, [facility] [address] [id number], [place] [address]- 2926 August, [facility] [place] [facility] [address] [id number], [place] [address]- 6816 August, [facility] [place] [facility] [address] [id number], [place] [address]- 9158 Jul, [facility] [place] [facility] [address] [id number], [place] [address]- 1426 May, [facility] [place] [facility] [address] [id number], [place] [address]- 8156 May, [facility] [place] [facility] [address] [id number], [place] [address]- 8006 16 May, 2011 [facility] [id number], [place] [address]- [address]98 Mar, [facility] [id number], [place] [address]- 2668 Jan, [facility] [id number], [place] [address]- 1146 Jan, [facility] [id number], [place] [address]- 5157 Oct, [facility] [id number] [place] [address]- [address]708 August, [facility] [id number] [place] [address]- 3041 Jan, [facility] [id number], [place] [address]- 9615 Jan, [facility] [id number], [place] [address]- 6308 Jan, [facility] [id number], [place] [address]- 8896 Jan, IMMUNIZATIONS No Known Immunizations SOCIAL HISTORY Never Assessed REASON FOR VISIT [facility] PLAN OF CARE VITAL SIGNS MEDICATIONS Unknown [...]
--- OUTSIDE RECORDS SUMMARY | 2018-08-15 15:20 | XMS REPORT ---
Author Author Migration, Doctor Organization [facility] Address Unknown Phone Unavailable Care Team Providers Care Janitor Supervisor Name Role Phone Migration, Doctor Unavailable Unavailable PROBLEMS Type Condition ICD9-CM Code JFE24-KF Code Onset Dates Condition Status SNOMED Code Problem Allergic rhinitis, unspecified allergic rhinitis type J30.9 Active 09318137 Problem Hyperammonemia E72.20 Active 5528177 Problem Obsessive compulsive disorder F42 Active 982373852 Problem Mood disorder F39 Active 22505257 Problem Seasonal allergic rhinitis due to other allergic trigger J30.89 Active 027910084 Problem Chronic hepatitis C without hepatic coma B18.2 Active 107108231 Problem Anxiety F41.9 Active 02131692 Problem History of alcohol abuse Z87.898 Active 103422824 Problem Hypertension, benign I10 Active 08092913 Problem Generalized anxiety disorder F41.1 Active 70398649 Problem Other chronic pain G89.29 Active 96205309 Problem Mild episode of recurrent major depressive disorder F33.0 Active 713232208 ALLERGIES No Information ENCOUNTERS Encounter Location Date Diagnosis [facility] [id number] [place] [address] 05445- 0058 August, [facility] [id number] [place] [address] 61663- 9680 Jul, Encounter for Medicare annual wellness exam Z00.00 [facility] [id number] [place] [address] 25224- 4857 Jun, Anxiety F41.9 [facility] [id number] [place] [address] 45906- 3679 14 Jun, 2018 Mild episode of recurrent major depressive disorder F33.0 [facility] [id number] [place] [address] 21756- 1270 May, Mood disorder F39 ; Generalized anxiety disorder F41.1 ; Mild episode of recurrent major depressive disorder F33.0 and Anxiety F41.9 [facility] [facility] [id number] [place] [address] 96213- 1094 Mar, Anxiety F41.9 and Seasonal allergic rhinitis due to other allergic trigger J30.89 [facility] [id number] [place] [address] 73172- 3290 Feb, [facility] [facility] [address] 52277- 6469 Feb, Generalized anxiety disorder F41.1 ; Eczema of both hands L30.9 and Encounter for immunization Z23 [facility] [facility] [address] 38129- 4553 Feb, Chronic hepatitis C without hepatic coma B18.2 [facility] [address] 02640- 2364 Jan, Mood disorder F39 [facility] [facility] [address] 51554- 8938 Jan, Chronic hepatitis C without hepatic coma B18.2 [facility] [facility] [address] 97058- 0663 Dec, Mild episode of recurrent major depressive disorder F33.0 ; Other chronic pain G89.29 ; Pain in left shoulder M25.512 and Pain in right shoulder M25.511 [facility] [facility] [id number] [place] [address] 10641- 3153 Dec, Chronic hepatitis C without hepatic coma B18.2 [facility] [facility] [id number] [place] [address] 34959- 7445 Nov, Chronic hepatitis C without hepatic coma B18.2 [facility] [facility] [address] 31740- 5839 Oct, Bronchitis J40 [place] [address] 91495- 3522 Oct, Chronic hepatitis C without hepatic coma B18.2 and Cough R05 [facility] [facility] [address] [address] 4123 Sep, Chronic hepatitis C without hepatic coma B18.2 [facility] [address] [address]- 7544 August, Chronic hepatitis C without hepatic coma B18.2 [facility] [address] [address]- 3382 Jul, Chronic hepatitis C without hepatic coma B18.2 [facility] [address] [address]- 3005 Jul, Generalized anxiety disorder F41.1 ; Mood disorder F39 and History of hepatitis C Z86.19 [facility] [address] [address]- 8160 Jul, Chronic hepatitis C without hepatic coma B18.2 [facility] [address] [address]- 2207 Jun, Chronic hepatitis C without hepatic coma B18.2 [facility] [address] [address]- 6930 Jun, [facility] [address] [address]- 6129 May, Chronic hepatitis C without hepatic coma B18.2 [facility] [address] [address]- 6632 May, Hypertension, benign I10 [facility] [address], [place] [address]- 0194 Apr, Chronic hepatitis C without hepatic coma B18.2 [facility] [address] [address]- 9097 Apr, Hypertension, benign I10 [facility] [address] [address]- 7393 Mar, Chronic hepatitis C without hepatic coma B18.2 [facility] [id number] [place] [address] 49906- 3594 Mar, Hypertension, benign I10 [facility] [id number] [place] [address] 16019- 8784 Mar, Hypertension, benign I10 ; Encounter for immunization Z23 and Strain of right Achilles tendon, initial encounter S86.011A [facility] [id number] [place] [address] 87099- 1163 Feb, Chronic hepatitis C without hepatic coma B18.2 [facility] [id number] [place] [address] 56798- 9083 Jan, Chronic hepatitis C without hepatic coma B18.2 [facility] [id number] [place] [address] 80858 -4680 Jan, Toe pain, right M79.674 and Cellulitis of foot, right L03.115 [facility] [id number] [place] [address] 32119- 5031 Dec, Chronic hepatitis C without hepatic coma B18.2 [facility] [id number] [place] [address] 41103- 0850 Nov, Chronic hepatitis C without hepatic coma B18.2 and Eczema of both hands L30.9 [facility] [id number] [place] [address] 43268- 2901 Nov, [facility] [id number] [place] [address] 15721- 1592 Oct, [facility] [id number] [place] [address] 50457- 8418 Sep, [facility] [id number] [place] [address] 53123- 5983 August, [facility] [id number] [place] [address] 34442- 6379 August, [facility] [id number] [place] [address] 44014- 9618 Jul, [facility] [id number] [place] [address]- 3084 Jul, [facility] [address] [place] [address]- 5286 Jun, [facility] [address] [place] [address]- 0536 Jun, [facility] [id number] [place] [address], [place] [address] May, [facility] [id number] [place] [address], [place] [address]- 6801 Apr, Chronic hepatitis C without hepatic coma B18.2 ; Hyperglycemia R73.9 and Hypertension, benign I10 [facility] [id number] [place] [address]- 4240 Apr, Chronic hepatitis C without hepatic coma B18.2 ; Mood disorder F39 ; Hypertension, benign I10 and Hyperglycemia R73.9 [facility] [id number] [place] [address]- 5413 Apr, [facility] [id number] [place] [address]- 9481 Apr, [facility] [id number] [place] [address]- 3987 Apr, [facility] [id number] [place] [address]- 2407 Feb, [facility] [id number] [place] [address] 2545 Feb, [facility] [id number] [place] [address]- 9546 Feb, [facility] [id number] 0556 Feb, [facility] [address] [place] [address]- 7110 Jan, [facility] [address] [address]- 7638 Jan, Chronic hepatitis C without hepatic coma B18.2 ; Mood disorder F39 ; Encounter for immunization Z23 and Chronic viral hepatitis C B18.2 [facility] [address] [address]- 1344 Jan, [facility] [id number] [place] [address] 64391- 3302 Jan, [facility] [id number] [place] [address] 63827- 3874 Dec, [facility] [id number] [place] [address] 61557- 9715 Dec, [facility] [id number] [place] [address] 78625- 9361 Nov, [facility] [id number] [place] [address] 82630- 0113 Nov, Weakness of both legs M62.81 [facility] [id number] [place] [address] 27615- 1702 Nov, [facility] [id number] [place] [address] 30080- 9246 Nov, [facility] [address] [address]- 0063 Nov, [facility] [id number] [place] [address] 49037- 5484 Nov, Eczema, unspecified type L30.9 [facility] [id number] [place] [address] 57052- 0918 Nov, [facility] [id number] [place] [address] 69731- 6110 Nov, Eczema, unspecified type L30.9 ; Cessation of tobacco use in previous 12 months Z87.891 and Weakness of both legs M62.81 [facility] [address], [place] [address]- 4019 Oct, [facility] [id number] [place] [address] 68485- 9729 Oct, [facility] [id number] [place] [address] 56146- 7699 Oct, [facility] [id number] [place] [address] 00671- 7204 Oct, Chronic viral hepatitis C B18.2 [facility] [id number] [place] [address] 82861- 9013 Sep, [facility] [id number] [place] [address] 41227- 8142 Sep, 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 and Generalized anxiety disorder F41.1 [facility] [id number] [place] [address] 12312- 5058 Sep, [facility] [id number] [place] [address] 55413- 8884 August, [facility] [id number] [place] [address] 89987- 4422 August, Hyperammonemia E72.20 [facility] [id number] [place] [address] 60638- 6455 August, Hyperammonemia E72.20 [facility] [id number] [place] [address] 26214- 8512 August, Hyperammonemia E72.20 and Chronic hepatitis C without hepatic coma B18.2 [facility] [id number] [place] [address] 88846- 3426 August, Chronic viral hepatitis C B18.2 [facility] [address] [address]- 4092 August, [facility] [id number] [place] [address] 93587- 2575 28 Jul, 2015 Chronic viral hepatitis C B18.2 and Hyperammonemia E72.20 [facility] [address] [place] [address]- 0426 Jul, Chronic viral hepatitis C B18.2 [facility] [address] [place] [address]- 1976 Jul, [facility] [id number] [address]- 1715 04 Jul, 2015 [facility] [address] [place] [address]- 6492 28 Jun, 2015 [facility] [address] [address]- 0926 23 Jun, 2015 Chronic viral hepatitis C B18.2 and Hyperammonemia E72.20 [facility] [id number] [place] [address]- 8806 Jun, [facility] [address] [place] [address]- 4769 18 Jun, 2015 [facility] [address] [place] [address]- 7665 16 Jun, 2015 Chronic viral hepatitis C B18.2 [facility] [address] [place] [address]- 1585 10 Jun, 2015 [facility] [address] [address]- 2544 07 Jun, 2015 Chronic viral hepatitis C B18.2 [facility] [address] 1546 17 May, 2015 Hepatitis C, chronic B18.2 and Chronic viral hepatitis C B18.2 [facility] [address] [place] [address]- 4946 15 May, 2015 [facility] [address] [address]- 5984 Apr, [facility] [id number] [place] [address] 31843- 8994 Apr, Chronic viral hepatitis C B18.2 and Hyperammonemia E72.20 [facility] [id number] [place] [address] 69244- 2776 Apr, Chronic viral hepatitis C B18.2 [facility] [id number] [place] [address] 56737- 7715 Apr, Hyperammonemia E72.20 [facility] [id number] [place] [address] 62803- 5363 Apr, [facility] [id number] [place] [address] 42889- 6196 Apr, [facility] [id number] [place] [address] 61746- 0382 Apr, Chronic hepatitis C without hepatic coma B18.2 ; Hyperammonemia E72.20 and Chronic viral hepatitis C B18.2 [facility] [id number] [place] [address] 00254- 7569 Mar, Shortness of breath R06.02 [facility] [id number] [place] [address] 24099- 9146 Mar, Mood disorder F39 and Major depressive disorder, recurrent episode, unspecified 296.30 [facility] [id number] [place] [address] 76218- 9617 Mar, [facility] [id number] [place] [address] 62646- 2904 Mar, [facility] [id number] [place] [address] 17589- 2999 15 Mar, 2015 [facility] [id number] [place] [address] 38708 -2418 11 Mar, 2015 Seasonal allergies J30.2 ; Shortness of breath R06.02 and Cough R05 [facility] [address] [address]- 9471 Mar, Hyperammonemia E72.20 ; Mood disorder F39 and History of alcohol abuse Z87.898 [facility] [address] [address]- 1455 Mar, Hyperammonemia E72.20 [facility] [id number] [place] [address] 20720 2546 Mar, [facility] [id number] [place] [address] 90782- 4182 Feb, [facility] [id number] [place] [address] 15931- 8198 Feb, [facility] [id number] [place] [address] 86943- 1093 Feb, Hyperammonemia E72.20 [facility] [id number] [place] [address] 18640- 7616 Feb, [facility] [id number] [place] [address] 70489- 0602 Feb, [facility] [id number] [place] [address] 51435- 0280 Feb, [facility] [address] [address]- 9704 Feb, [facility] [id number] [place] [address] 22760- 4074 Feb, Chronic viral hepatitis C B18.2 [facility] [id number] [place] [address] 58647- 5761 Feb, Chronic viral hepatitis C B18.2 [facility] [address] [address]- 2233 Feb, [facility] [address] [address]- 9626 Feb, Chronic viral hepatitis C B18.2 and Confusion R41.0 [facility] [address] [facility] [id number] [address]- 8536 Feb, [facility] [address] [facility] [id number] [address] 2546 Jan, [facility] [address] [facility] [id number] [address]- 6836 Jan, Confusion R41.0 [facility] [address] [facility] [id number] [address]- 4036 Jan, [facility] [address] [facility] [id number] [place] [address] 15994- 9405 Jan, [facility] [id number] [address]- 6524 Jan, [facility] [id number] [place] [address] 85433- 1982 Jan, [facility] [address] [facility] [id number] [address]- 4208 Jan, Chronic viral hepatitis C B18.2 and 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 [facility] [id number] [address]- 4043 Jan, [facility] [id number] [address]- 4622 Jan, [facility] [address] [facility] [id number] [address]- 6880 Jan, [facility] [address] [facility] [id number] [address] 2547 Jan, [facility] [address] [address]- 2546 Jan, Chronic viral hepatitis C B18.2 [facility] [id number] [address]- 0866 Jan, [facility] [id number] [place] [address] 10734- 2036 14 Jan, 2015 Back pain at L4-L5 level M54.5 and Confusion R41.0 [facility] [address] 21720- 4429 14 Jan, 2015 [facility] [address] 97505- 3654 30 Dec, 2014 Chronic viral hepatitis C B18.2 and Flu vaccine need V04.81 [facility] [address] 50071- 0009 30 Dec, 2014 Chronic viral hepatitis C B18.2 [place] [address] 67083- 6128 28 Dec, 2014 [place] [address] 44979- 8690 22 Dec, 2014 Polyuria 788.42 [place] [address] 01487- 7851 21 Dec, 2014 Polyuria 788.42 ; Polydipsia 783.5 ; Dizziness 780.4 and Hepatitis C, chronic 070.54 [facility] [id number] [place] [address] 62366- 3954 10 Dec, 2014 Major depressive disorder, recurrent episode, unspecified 296.30 and Generalized anxiety disorder 300.02 [facility] [id number] [place] [address] 88331- 7163 Nov, [facility] [address] 73816- 5187 Nov, [facility] [address] 33515- 0731 Nov, [facility] [id number] [place] [address] 84256- 2096 Oct, [facility] [address] 18612- 8607 Sep, [facility] [address] [address]- 9317 August, Obsessive-compulsive disorders 300.3 ; Generalized anxiety disorder 300.02 and Major depressive disorder, recurrent episode, unspecified 296.30 [facility] [address] [address]- 2548 August, Chronic hepatitis C without mention of hepatic coma 070.54 ; Hypertension 401.9 and Seasonal allergies 477.9 [facility] [address] [address]- 1802 Jul, [facility] [id number] [place] [address] 92456- 9678 Jul, [facility] [id number] [address]- 7357 Jun, [facility] [id number] [place] [address] 47872- 4789 Jun, [facility] [address] [address]- 2364 May, [facility] [address] [address]- 2757 May, [facility] [address] [address]- 0213 May, [facility] [address] [address]- 1097 May, [facility] [address], [place] [address]- 0925 Apr, [facility] [id number] 6499 Apr, [facility] [address] 8459 Apr, [facility] [address] 4527 Apr, [facility] [place] [facility] [address] [id number] [place] [address]- 3850 Apr, [facility] [place] [facility] [address] [id number] [place] [address]- 2428 Apr, [facility] [place] [facility] [address] [id number] [place] 9549 Mar, [facility] [place] [facility] [address] [id number] [place] [address]- 6273 Mar, [facility] [place] [facility] [address] [id number] [place] [address] Mar, [facility] [place] [facility] [address] [id number] [place] [address] Mar, [facility] [place] [facility] [address] [id number] [place] [address] Mar, [facility] [place] [facility] [address] [id number] [place] [address] Mar, [facility] [place] [facility] [address] [id number] [place] [address] Mar, [facility] [place] [facility] [address] [id number] [place] [address] Mar, [facility] [place] [facility] [address] [id number] [place] [address] Mar, [facility] [place] [facility] [address] [id number] [place] [address] Feb, [facility] [place] [facility] [address] [id number] [place] [address] Feb, [facility] [place] [facility] [address] [id number] [place] [address] Feb, [facility] [place] [facility] [address] [id number] [place] [address] Feb, [facility] [place] [facility] [address] [id number] [address] Feb, [facility] [place] [facility] [address] [id number] [place] [address] Jan, [facility] [place] [facility] [address] [id number] [place] [address] Jan, [facility] [place] [facility] [address] [id number] [place] [address] Jan, [facility] [place] [facility] [address] [id number] [place] [address] Jan, [facility] [place] [facility] [address] [id number] [place] [address] Jan, [facility] [place] [facility] [address] [id number] [place] [address] Jan, [facility] [place] [facility] [address] [id number] [place] [address] Jan, [facility] [place] [facility] [address] [id number] [place] [address] Jan, [facility] [place] [facility] [address] [id number] [place] [address] Jan, [facility] [place] [facility] [address] [id number] [place] [address] Nov, [facility] [place] [facility] [address] [id number] [place] [address] Nov, [facility] [place] [facility] [address] [id number] [place] [address] Nov, [facility] [place] [facility] [address] [id number] [place] [address] Oct, [facility] [place] [facility] [address] [id number] [place] [address] Oct, [facility] [place] [facility] [address] [facility] [facility] [place] [id number] [place] [address] Oct, [facility] [place] [facility] [address] [id number] [place] [address] Oct, [facility] [place] [facility] [address] [id number] [place] [address] Sep, [facility] [place] [facility] [address] [id number] [place] [address] Sep, [facility] [place] [facility] [address] [id number] [place] [address] Sep, [facility] [place] [facility] [address] [id number] [place] [address] Sep, [facility] [place] [facility] [address] [id number] [place] [address] Sep, [facility] [place] [facility] [address] [id number] [place] [address] 139[address] Sep, [facility] [place] [facility] [address] [id number] [place] [address] August, [facility] [place] [facility] [address] [id number] [place] [address]388 August, [facility] [place] [facility] [address] [id number] [place] [address] Jul, [facility] [place] [facility] [address] [id number] [place] [address] Jul, [facility] [place] [facility] [address] [id number] [place] [address] Jul, [facility] [place] [facility] [address] [id number] [place] [address] Jul, [facility] [place] [facility] [address] [id number] [place] [address]353 Jul, [facility] [place] [facility] [address] [id number] [place] [address] 8632 Jul, [facility] [place] [facility] [address] [id number] [place] [address] Jul, [facility] [place] [facility] [address] [id number] [place] [address] Jul, [facility] [place] [facility] [address] [id number] [place] [address] 57[address] Jul, [facility] [place] [facility] [address] [id number] [place] [address]- 6685 Jul, [facility] [place] [facility] [address] [id number] [place] [address] 7867 Jun, [facility] [place] [facility] [address] [id number] [place] [address] Jun, [facility] [place] [facility] [address] [id number] [place] [address]279 Jun, [facility] [place] [facility] [address] [facility] [id number] [place] [address] Jun, [facility] [place] [facility] [address] [id number] [place] [address] May, [facility] [place] [facility] [address] [id number] [place] [address] 8539 May, [facility] [place] [facility] [address] [facility] [id number] [place] [address]- 6335 May, [facility] [place] [facility] [address] [id number] [place] [address] 3529 May, [facility] [place] [facility] [address] [id number] [place] [address] 6224 May, [facility] [place] [facility] [address] [id number] [place] [address]32 May, [facility] [place] [facility] [address] [id number] [place] [address] 4[address] Mar, [facility] [place] [facility] [address] [id number] [place] [address] Mar, [facility] [place] [facility] [address] [id number] [place] [address] 8793 16 Mar, 2013 [facility] [address] [id number] [place] [address] 50[address] 16 Mar, 2013 [facility] [place] [facility] [address] [id number] [place] [address] 16 Mar, 2013 [facility] [address] [id number] [place] [address]- 2473 16 Mar, 2013 [facility] [place] [facility] [address] [id number] [place] [address]- 6[address] 23 Feb, 2013 [facility] [place] [facility] [address] [id number] [place] [address] 44[address] Feb, [facility] [place] [facility] [address] [id number] [place] [address] 6992 Feb, [facility] [place] [facility] [address] [id number] [place] [address] 8041 Feb, [facility] [address] [id number] [place] [address] 1834 Feb, [facility] [place] [facility] [address] [id number] [place] [address] 58[address] 12 Feb, 2013 [facility] [address] [id number] [place] [address] 9[address] Feb, [facility] [place] [facility] [address] [id number] [place] [address]- 9198 07 Feb, 2013 [facility] [place] [facility] [address] [id number] [place] [address] 18 Jan, 2013 [facility] [place] [facility] [address] [id number] [place] [address]- 2464 18 Jan, 2013 [facility] [place] [facility] [address] [id number] [place] [address] 4934 17 Jan, 2013 [facility] [place] [facility] [address] [id number] [place] [address] 6[address] 16 Jan, 2013 [facility] [place] [facility] [address] [id number] [place] [address]- 6195 16 Jan, 2013 [facility] [place] [facility] [address] [id number] [place] [address]- 0748 14 Jan, 2013 [facility] [place] [facility] [address] [id number] [place] [address]- [address] 14 Jan, 2013 [facility] [place] [facility] [address] [id number] [place] [address]- 8754 11 Jan, 2013 [facility] [place] [facility] [address] [id number] [place] [address]- 8284 11 Jan, 2013 [facility] [place] [facility] [address] [id number] [place] [address]- 8588 10 Jan, 2013 [facility] [place] [facility] [address] [id number] [place] [address]- 7925 27 Dec, 2012 [facility] [place] [facility] [address] [id number] [place] [address]- 8928 18 Dec, 2012 [facility] [place] [facility] [address] [id number] [place] [address]- 7557 18 Dec, 2012 [facility] [place] [facility] [address] [id number] [place] [address]- 4483 30 Nov, 2012 [facility] [place] [facility] [address] [id number] [place] [address]- 9236 Nov, [facility] [place] [facility] [address] [id number], [place] [address] Nov, [facility] [place] [facility] [address] [id number] [place] [address]- 6761 Nov, [facility] [place] [facility] [address] [id number] [place] [address]- 8434 Nov, [facility] [place] [facility] [address] [id number] [place] [address]- 1843 Nov, [facility] [place] [facility] [address] [id number] [place] [address]- 3346 Nov, [facility] [place] [facility] [address] [id number] [place] [address] 1513 Nov, [facility] [place] [facility] [address] [id number] [place] [address] 7340 Nov, [facility] [place] [facility] [address] [id number] [place] [address]- 6563 Nov, [facility] [place] [facility] [address] [id number] [place] [address]- 9599 Oct, [facility] [place] [facility] [address] [id number] [place] [address]- 9233 Oct, [facility] [place] [facility] [address] [id number] [place] [address]- 6206 Oct, [facility] [place] [facility] [address] [id number] [place] [address]- 7535 Oct, [facility] [place] [facility] [address] [id number] [place] [address]- 8141 Oct, [facility] [place] [facility] [address] [id number] [place] [address]- 8034 Oct, [facility] [place] [facility] [address] [id number] [place] [address]- 0036 Oct, [facility] [place] [facility] [address] [id number] [place] [address]- 0418 Oct, [facility] [place] [facility] [address] [id number] [place] [address]- 4882 Sep, [facility] [place] [facility] [address] [id number] [place] [address]- 2595 Sep, [facility] [place] [facility] [address] [id number] [place] [address]- 2879 Sep, [facility] [place] [facility] [address] [id number] [place] [address]- 9052 Sep, [facility] [place] [facility] [address] [id number] [place] [address]- 4896 August, [facility] [address] [id number] [place] [address]- 9620 August, [facility] [place] [facility] [address] [id number] [place] [address]- 7017 August, [facility] [address] [place] [id number] Jul, [facility] [address] [place] [id number] Jul, [facility] [address] [id number] [place] [address]- 9684 Jun, [facility] [place] [facility] [address] [id number] [place] [address]- 5386 May, [facility] [place] [facility] [address] [id number] [place] [address]- 2186 May, [facility] [place] [facility] [address] [id number] [place] [address]- 8930 Apr, [facility] [place] [facility] [address] [id number] [place] [address]- 9346 Feb, [facility] [place] [facility] [address] [id number] [place] [address]- 5168 Feb, [facility] [place] [facility] [address] [id number] [place] [address]- 5397 Jan, [facility] [place] [facility] [address] [id number] [place] [address]- 8272 Jan, [facility] [place] [facility] [address] [id number] [place] [address]- 2422 Jan, [facility] [place] [facility] [address] [id number] [place] [address]- 5911 Jan, [facility] [place] [facility] [address] [id number] [place] [address]- 6338 Jan, [facility] [place] [facility] [address] [id number] [place] [address]- 2526 Dec, [facility] [address] [id number] [place] [address]- 3574 Dec, [facility] [address] [id number] [id number] Nov, [facility] [address] [id number] [place] [address]- 4253 Nov, [facility] [place] [facility] [address] [id number] [place] [address]- 6314 Nov, [facility] [address] [id number] [place] [address]- 3701 Nov, [facility] [address] [id number] [place] [address]- 2791 August, [facility] [address] [id number] [place] [address]- 3057 August, [facility] [address] [id number] [place] [address]- 4783 August, [facility] [address] [id number] [place] [address]- 3969 Jul, [facility] [address] [id number] [place] [address]- 4052 May, [facility] [place] [facility] [address] [id number] [place] [address]- 6608 May, [facility] [place] [facility] [address] [id number], [place] [address] 8853 May, [facility] [place] [facility] [address] [id number] [place] [address]- 3813 Mar, [facility] [place] [facility] [address] [id number] [address] Jan, [facility] [place] [facility] [address] [id number] [address] Jan, [facility] [address] [id number] [address] 1649 Oct, [facility] [address] [id number] [id number] August, [facility] [id number], [place] [address] Jan, [facility] [id number], [place] [address]- 8707 Jan, [facility] [id number], [place] [address]- 8[address] Jan, [facility] [id number], [place] [address]- 8681 Jan, IMMUNIZATIONS No Known Immunizations SOCIAL HISTORY Never Assessed REASON FOR VISIT EMR-[facility] [place] PLAN OF CARE VITAL SIGNS MEDICATIONS Unknown [...]
--- OUTSIDE RECORDS SUMMARY | 2018-08-15 15:21 | XMS REPORT ---
Author Author Migration, Doctor Organization [facility] Address Unknown Phone Unavailable Care Team Providers Care Property Utilization Manager Name Role Phone Migration, Doctor Unavailable Unavailable PROBLEMS Type Condition ICD9-CM Code GAN93-OS Code Onset Dates Condition Status SNOMED Code Problem Allergic rhinitis, unspecified allergic rhinitis type J30.9 Active 77346201 Problem Hyperammonemia E72.20 Active 4159239 Problem Obsessive compulsive disorder F42 Active 417543496 Problem Mood disorder F39 Active 78818269 Problem Seasonal allergic rhinitis due to other allergic trigger J30.89 Active 927931465 Problem Chronic hepatitis C without hepatic coma B18.2 Active 919071510 Problem Anxiety F41.9 Active 64421170 Problem History of alcohol abuse Z87.898 Active 368527978 Problem Hypertension, benign I10 Active 65443492 Problem Generalized anxiety disorder F41.1 Active 68268210 Problem Other chronic pain G89.29 Active 33411235 Problem Mild episode of recurrent major depressive disorder F33.0 Active 589726620 ALLERGIES No Information ENCOUNTERS Encounter Location Date Diagnosis [facility] [id number] [place] [address] 28143- 6689 August, [place] [facility] [id number] [place] [address] 39513- 7900 Jul, Encounter for Medicare annual wellness exam Z00.00 [facility] [id number] [place] [address] 28042- 9318 Jun, Anxiety F41.9 [facility] [id number] [place] [address] 56407- 4828 14 Jun, 2018 Mild episode of recurrent major depressive disorder F33.0 [facility] [id number] [place] [address] 59469- 4064 May, Mood disorder F39 ; Generalized anxiety disorder F41.1 ; Mild episode of recurrent major depressive disorder F33.0 and Anxiety F41.9 [place] [id number] [place] [address] 26296- 3769 Mar, Anxiety F41.9 and Seasonal allergic rhinitis due to other allergic trigger J30.89 [facility] [id number] [place] [address] 97930- 3341 Feb, [place] [address] 62927- 7474 Feb, Generalized anxiety disorder F41.1 ; Eczema of both hands L30.9 and Encounter for immunization Z23 [facility] [address] 61232- 9380 Feb, Chronic hepatitis C without hepatic coma B18.2 [facility] [address] 76711- 2984 Jan, Mood disorder F39 [place] [facility] [address] 91409- 6609 Jan, Chronic hepatitis C without hepatic coma B18.2 [facility] [address] 39816- 8692 Dec, Mild episode of recurrent major depressive disorder F33.0 ; Other chronic pain G89.29 ; Pain in left shoulder M25.512 and Pain in right shoulder M25.511 [facility] [id number] [place] [address] 60987- 6451 Dec, Chronic hepatitis C without hepatic coma B18.2 [facility] [id number] [place] [address] 84549- 8772 Nov, Chronic hepatitis C without hepatic coma B18.2 [facility] [address] 87809- 7272 Oct, Bronchitis J40 [facility] [address] 11863- 1912 Oct, Chronic hepatitis C without hepatic coma B18.2 and Cough R05 [facility] [address] [address]- 9284 Sep, Chronic hepatitis C without hepatic coma B18.2 [facility] [address] [address]- 2087 August, Chronic hepatitis C without hepatic coma B18.2 [facility] [address] [address]- 5969 Jul, Chronic hepatitis C without hepatic coma B18.2 [facility] [address] [address]- 7117 Jul, Generalized anxiety disorder F41.1 ; Mood disorder F39 and History of hepatitis C Z86.19 [facility] [address] [address]- 3027 Jul, Chronic hepatitis C without hepatic coma B18.2 [facility] [address] [address]- 6012 Jun, Chronic hepatitis C without hepatic coma B18.2 [facility] [address] [address]- 4976 Jun, [facility] [address] [address]- 5639 May, Chronic hepatitis C without hepatic coma B18.2 [facility] [address] [address]- 7548 May, Hypertension, benign I10 [facility] [address] [address]- 8546 Apr, Chronic hepatitis C without hepatic coma B18.2 [facility] [id number] [address]- 8320 Apr, Hypertension, benign I10 [facility] [id number] [address]- 1249 Mar, Chronic hepatitis C without hepatic coma B18.2 [facility] [id number] [place] [address] 16858- 7008 Mar, Hypertension, benign I10 [facility] [id number] [place] [address] 20490- 0619 Mar, Hypertension, benign I10 ; Encounter for immunization Z23 and Strain of right Achilles tendon, initial encounter S86.011A [facility] [id number] [place] [address] 90321- 3514 Feb, Chronic hepatitis C without hepatic coma B18.2 [facility] [id number] [place] [address] 15264- 8797 Jan, Chronic hepatitis C without hepatic coma B18.[address] [facility] [id number] [place] [address] 02440 -2365 Jan, Toe pain, right M79.674 and Cellulitis of foot, right L03.115 [facility] [id number] [place] [address] 88451- 8605 Dec, Chronic hepatitis C without hepatic coma B18.2 [facility] [id number] [place] [address] 92048- 8217 Nov, Chronic hepatitis C without hepatic coma B18.2 and Eczema of both hands L30.9 [facility] [id number] [place] [address] 63776- 5130 Nov, [facility] [id number] [place] [address] 54280- 9803 Oct, [facility] [id number] [place] [address] 83994- 7978 Sep, [facility] [id number] [place] [address] 02946- 2153 August, [facility] [id number] [place] [address] 56666- 0542 August, [facility] [id number] [place] [address] 16367- 2200 Jul, [facility] [id number] [place] [address]- 0532 Jul, [facility] [id number] [place] [address]- 3196 Jun, [facility] [id number] [place] [address]- 8266 Jun, [facility] [id number] [place] [address], [place] [address]- 7736 May, [facility] [id number] [place] [address], [place] [address]- 7564 Apr, Chronic hepatitis C without hepatic coma B18.2 ; Hyperglycemia R73.9 and Hypertension, benign I10 [facility] [id number] [place] [address]- 7466 Apr, Chronic hepatitis C without hepatic coma B18.2 ; Mood disorder F39 ; Hypertension, benign I10 and Hyper[address] [id number] [place] [address]- 2438 Apr, [facility] [id number] [place] [address]- 7054 Apr, [facility] [id number] [place] [address]- 2138 Apr, [facility] [id number] [place] [address]- 1431 Feb, [facility] [id number] [place] [address] 2540 Feb, [facility] [id number] [place] [address]- 1996 Feb, [facility] [id number] 8996 Feb, [facility] [id number] [place] [address]- 4976 Jan, [facility] [id number] [address]- 8105 Jan, Chronic hepatitis C without hepatic coma B18.2 ; Mood disorder F39 ; Encounter for immunization Z23 and Chronic viral hepatitis C B18.2 [facility] [id number] [address]- 3445 Jan, [facility] [id number] [place] [address] 09548- 5573 Jan, [facility] [id number] [place] [address] 20697- 7420 Dec, [facility] [id number] [place] [address] 48087- 1048 Dec, [facility] [id number] [place] [address] 80083- 1027 Nov, [facility] [id number] [place] [address] 36220- 7701 Nov, Weakness of both legs M62.81 [facility] [id number] [place] [address] 45924- 6106 Nov, [facility] [id number] [place] [address] 94009- 9987 Nov, [facility] [id number] [address]- 5781 Nov, [facility] [id number] [place] [address] 93559- 8708 Nov, Eczema, unspecified type L30.9 [facility] [id number] [place] [address] 70918- 5707 Nov, [facility] [id number] [place] [address] 30286- 3914 Nov, Eczema, unspecified type L30.9 ; Cessation of tobacco use in previous 12 months Z87.891 and Weakness of both legs M62.81 [facility] [id number] [address]- 3934 Oct, [facility] [id number] [place] [address] 92205- 9397 Oct, [facility] [id number] [place] [address] 64440- 4596 Oct, [facility] [id number] [place] [address] 02192- 6515 Oct, Chronic viral hepatitis C B18.2 [facility] [id number] [place] [address] 13929- 1267 Sep, [facility] [id number] [place] [address] 95817- 4750 Sep, 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 and Generalized anxiety disorder F41.1 [facility] [id number] [place] [address] 19297- 4853 Sep, [facility] [id number] [place] [address] 02046- 0828 August, [facility] [id number] [place] [address] 90795- 5369 August, Hyperammonemia E72.20 [facility] [id number] [place] [address] 11274- 2924 August, Hyperammonemia E72.20 [facility] [id number] [place] [address] 47666- 0447 August, Hyperammonemia E72.20 and Chronic hepatitis C without hepatic coma B18.2 [facility] [id number] [place] [address] 62011- 1519 August, Chronic viral hepatitis C B18.2 [facility] [id number] [address]- 0686 August, [facility] [id number] [place] [address] 46605- 9000 28 Jul, 2015 Chronic viral hepatitis C B18.2 and Hyperammonemia E72.20 [facility] [id number] [place] [address]- 4606 Jul, Chronic viral hepatitis C B18.2 [facility] [id number] [place] [address]- 1146 Jul, [facility] [id number] [address]- 6083 04 Jul, 2015 [facility] [id number] [place] [address]- 9987 28 Jun, 2015 [facility] [id number] [address]- 8682 23 Jun, 2015 Chronic viral hepatitis C B18.2 and Hyperammonemia E72.20 [facility] [id number] [place] [address]- 0916 Jun, [facility] [id number] [place] [address]- 9631 18 Jun, 2015 [facility] [id number] [place] [address]- 0785 16 Jun, 2015 Chronic viral hepatitis C B18.2 [facility] [id number] [place] [address]- 0670 10 Jun, 2015 [facility] [id number] [address]- 2540 07 Jun, 2015 Chronic viral hepatitis C B18.2 [facility] [id number]- 9066 17 May, 2015 Hepatitis C, chronic B18.2 and Chronic viral hepatitis C B18.2 [facility] [id number] [place] [address]- 8606 15 May, 2015 [facility] [id number] [address]- 7506 Apr, [facility] [id number] [place] [address] 53060- 5785 Apr, Chronic viral hepatitis C B18.2 and Hyperammonemia E72.20 [facility] [id number] [place] [address] 65366- 5163 Apr, Chronic viral hepatitis C B18.2 [facility] [id number] [place] [address] 66543- 3630 Apr, Hyperammonemia E72.20 [facility] [id number] [place] [address] 53419- 7930 Apr, [facility] [id number] [place] [address] 35694- 4065 Apr, [facility] [id number] [place] [address] 21535- 8415 Apr, Chronic hepatitis C without hepatic coma B18.2 ; Hyperammonemia E72.20 and Chronic viral hepatitis C B18.2 [facility] [id number] [place] [address] 47668- 0182 Mar, Shortness of breath R06.02 [facility] [id number] [place] [address] 28920- 1987 Mar, Mood disorder F39 and Major depressive disorder, recurrent episode, unspecified 296.30 [facility] [id number] [place] [address] 56753- 4432 Mar, [facility] [id number] [place] [address] 22908- 4689 Mar, [facility] [id number] [place] [address] 81767- 1677 15 Mar, [address] [facility] [id number] [place] [address] 84509 -8472 11 Mar, 2015 Seasonal allergies J30.2 ; Shortness of breath R06.02 and Cough R05 [place] [address] [address]- 6695 Mar, Hyperammonemia E72.20 ; Mood disorder F39 and History of alcohol abuse Z87.898 [facility] [address] [address]- 6917 Mar, Hyperammonemia E72.20 [facility] [id number] [place] [address] 34293 2546 Mar, [facility] [id number] [place] [address] 68751- 3076 Feb, [facility] [id number] [place] [address] 08131- 1524 Feb, [facility] [id number] [place] [address] 35966- 6593 Feb, Hyperammonemia E72.20 [facility] [id number] [place] [address] 47088- 1744 Feb, [facility] [id number] [place] [address] 93828- 9680 Feb, [facility] [id number] [place] [address] 82625- 5924 Feb, [facility] [address] [address]- 2767 Feb, [facility] [id number] [place] [address] 14885- 1266 Feb, Chronic viral hepatitis C B18.2 [facility] [id number] [place] [address] 18153- 7112 Feb, Chronic viral hepatitis C B18.2 [facility] [address] [address]- 1092 Feb, [facility] [id number] [address]- 6964 Feb, Chronic viral hepatitis C B18.2 and Confusion R41.0 [facility] [address] [facility] [id number] [address]- 5526 Feb, [facility] [address] [facility] [id number] [place] [address] 2546 Jan, [facility] [address] [facility] [id number] [place] [address]- 7286 Jan, Confusion R41.0 [facility] [address] [facility] [id number] [place] [address]- 8656 Jan, [facility] [address] [facility] [id number] [place] [address] 63746- 5571 Jan, [facility] [id number] [address]- 7517 Jan, [facility] [id number] [place] [address] 73458- 2104 Jan, [facility] [address] [facility] [id number] [place] [address]- 0628 Jan, Chronic viral hepatitis C B18.2 and 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 [facility] [id number] [address]- 7764 Jan, [facility] [id number] [address]- 5997 Jan, [facility] [address] [facility] [id number] [place] [address]- 9997 Jan, [facility] [address] [facility] [id number] [place] [address] 2542 Jan, [facility] [address] [address]- 2546 Jan, Chronic viral hepatitis C B18.2 [facility] [address] [id number] [address]- 1726 Jan, [facility] [id number] [place] [address] 92854- 8642 14 Jan, 2015 Back pain at L4-L5 level M54.5 and Confusion R41.0 [facility] [address] 08154- 5326 14 Jan, 2015 [facility] [address] 42135- 5054 30 Dec, 2014 Chronic viral hepatitis C B18.2 and Flu vaccine need V04.81 [facility] [address] 37614- 1293 30 Dec, 2014 Chronic viral hepatitis C B18.2 [place] [address] 43741- 2718 28 Dec, 2014 [place] [address] 33261- 6231 22 Dec, 2014 Polyuria 788.42 [place] [address] 81063- 4221 21 Dec, 2014 Polyuria 788.42 ; Polydipsia 783.5 ; Dizziness 780.4 and Hepatitis C, chronic 070.54 [facility] [id number] [place] [address] 25452- 7810 10 Dec, 2014 Major depressive disorder, recurrent episode, unspecified 296.30 and Generalized anxiety disorder 300.02 [facility] [id number] [place] [address] 92597- 4888 Nov, [facility] [address] 27522- 3966 Nov, [facility] [address] 10709- 6205 Nov, [facility] [id number] [place] [address] 13986- 3908 Oct, [facility] [address] 85177- 0170 Sep, [facility] [address] [address]- 6487 August, Obsessive-compulsive disorders 300.3 ; Generalized anxiety disorder 300.02 and Major depressive disorder, recurrent episode, unspecified 296.30 [facility] [address] [address]- 2377 August, Chronic hepatitis C without mention of hepatic coma 070.54 ; Hypertension 401.9 and Seasonal allergies 477.9 [facility] [id number] [address]- 6413 Jul, [facility] [id number] [place] [address] 40861- 8117 Jul, [facility] [id number] [address]- 3031 Jun, [facility] [id number] [place] [address] 34164- 8497 Jun, [facility] [id number] [address]- 9393 May, [facility] [id number] [address]- 3578 May, [facility] [id number] [address]- 2563 May, [facility] [id number] [address]- 3181 May, [facility] [id number] [address]- 9533 Apr, [facility] [id number] 1201 Apr, [facility] [id number] 7013 Apr, [facility] [id number] [address] Apr, [facility] [place] [facility] [address] [id number] [place] [address] Apr, [facility] [place] [facility] [address] [id number] [place] [address] Apr, [facility] [place] [facility] [address] [id number] [place] [address] Mar, [facility] [place] [facility] [address] [id number] [place] [address] Mar, [facility] [place] [facility] [address] [id number] [place] [address] Mar, [facility] [place] [facility] [address] [id number] [place] [address] Mar, [facility] [place] [facility] [address] [id number] [place] [address] Mar, [facility] [place] [facility] [address] [id number] [place] [address] Mar, [facility] [place] [facility] [address] [id number] [place] [address] Mar, [facility] [place] [facility] [address] [id number] [place] [address] Mar, [facility] [place] [facility] [address] [id number] [place] [address] Mar, [facility] [place] [facility] [address] [id number] [place] [address] Feb, [facility] [place] [facility] [address] [id number] [place] [address] Feb, [facility] [place] [facility] [address] [id number] [place] [address] Feb, [facility] [place] [facility] [address] [id number] [place] [address] Feb, [facility] [place] [facility] [address] [id number] [address] Feb, [facility] [place] [facility] [address] [id number] [place] [address] Jan, [facility] [place] [facility] [address] [id number] [place] [address] Jan, [facility] [place] [facility] [address] [id number] [place] [address] Jan, [facility] [place] [facility] [address] [id number] [place] [address] Jan, [facility] [place] [facility] [address] [id number] [place] [address] Jan, [facility] [place] [facility] [address] [id number] [place] [address] Jan, [facility] [place] [facility] [address] [id number] [place] [address] Jan, [facility] [place] [facility] [address] [id number] [place] [address] Jan, [facility] [place] [facility] [address] [id number] [place] [address] Jan, [facility] [place] [facility] [address] [id number] [place] [address] Nov, [facility] [place] [facility] [address] [id number] [place] [address] Nov, [facility] [place] [facility] [address] [id number] [place] [address] Nov, [facility] [place] [facility] [address] [id number] [place] [address] Oct, [facility] [place] [facility] [address] [id number] [place] [address] Oct, [facility] [place] [facility] [address] [facility] [id number] [place] [address] Oct, [facility] [place] [facility] [address] [id number] [place] [address] Oct, [facility] [place] [facility] [address] [id number] [place] [address] Sep, [facility] [place] [facility] [address] [id number] [place] [address] Sep, [facility] [place] [facility] [address] [id number] [place] [address] Sep, [facility] [place] [facility] [address] [id number] [place] [address] Sep, [facility] [place] [facility] [address] [id number] [place] [address] Sep, [facility] [place] [facility] [address] [id number] [place] [address] Sep, [facility] [place] [facility] [address] [id number] [place] [address] August, [facility] [place] [facility] [address] [id number] [place] [address]26 August, [facility] [place] [facility] [address] [id number] [place] [address] Jul, [facility] [place] [facility] [address] [id number] [place] [address] Jul, [facility] [place] [facility] [address] [id number] [place] [address] Jul, [facility] [place] [facility] [address] [id number] [place] [address] Jul, [facility] [place] [facility] [address] [id number] [place] [address] 9[address] Jul, [facility] [place] [facility] [address] [id number] [place] [address] 4213 Jul, [facility] [place] [facility] [address] [id number] [place] [address] Jul, [facility] [place] [facility] [address] [id number] [place] [address] Jul, [facility] [place] [facility] [address] [id number] [place] [address] Jul, [facility] [place] [facility] [address] [id number] [place] [address] Jul, [facility] [place] [facility] [address] [id number] [place] [address] Jun, [facility] [place] [facility] [address] [id number] [place] [address] Jun, [facility] [place] [facility] [address] [id number] [place] [address]- 6317 Jun, [facility] [place] [facility] [address] [facility] [id number] [place] [address]- [address] Jun, [facility] [place] [facility] [address] [id number] [place] [address] 6[address] May, [facility] [place] [facility] [address] [id number] [place] [address] 27[address] May, [facility] [place] [facility] [address] [facility] [id number] [place] [address]- [address]286 May, [facility] [place] [facility] [address] [id number] [place] [address] May, [facility] [place] [facility] [address] [id number] [place] [address] 66[address] May, [facility] [place] [facility] [address] [id number] [place] [address] 45[address] May, [facility] [place] [facility] [address] [id number] [place] [address] Mar, [facility] [place] [facility] [address] [id number] [place] [address] 4[address] Mar, [facility] [place] [facility] [address] [id number] [place] [address] 7950 16 Mar, 2013 [facility] [address] [id number] [place] [address]286 16 Mar, 2013 [facility] [place] [facility] [address] [id number] [place] [address] 16 Mar, 2013 [facility] [address] [id number] [place] [address]- [address]706 16 Mar, 2013 [facility] [place] [facility] [address] [id number] [place] [address]- [address] 23 Feb, 2013 [facility] [place] [facility] [address] [id number] [place] [address] Feb, [facility] [place] [facility] [address] [id number] [place] [address] 37[address] Feb, [facility] [place] [facility] [address] [id number] [place] [address]761 Feb, [facility] [address] [id number] [place] [address] 7969 Feb, [facility] [place] [facility] [address] [id number] [place] [address] 64[address] 12 Feb, 2013 [facility] [address] [id number] [place] [address]- [address] Feb, [facility] [place] [facility] [address] [id number] [place] [address]- 8928 07 Feb, 2013 [facility] [place] [facility] [address] [id number] [place] [address]- [address]393 18 Jan, 2013 [facility] [place] [facility] [address] [id number] [place] [address] 9037 18 Jan, 2013 [facility] [place] [facility] [address] [id number] [place] [address]- [address] 17 Jan, 2013 [facility] [place] [facility] [address] [id number] [place] [address]- 9085 16 Jan, 2013 [facility] [place] [facility] [address] [id number] [place] [address]- 9390 16 Jan, 2013 [facility] [place] [facility] [address] [id number] [place] [address]- 8440 14 Jan, 2013 [facility] [place] [facility] [address] [id number] [place] [address]- [address] 14 Jan, 2013 [facility] [place] [facility] [address] [id number] [place] [address]- 9765 11 Jan, 2013 [facility] [place] [facility] [address] [id number] [place] [address]- 2294 11 Jan, 2013 [facility] [place] [facility] [address] [id number] [place] [address]- 8023 10 Jan, 2013 [facility] [place] [facility] [address] [id number] [place] [address]- 3654 27 Dec, 2012 [facility] [place] [facility] [address] [id number] [place] [address]- 8042 18 Dec, 2012 [facility] [place] [facility] [address] [id number] [place] [address]- 6467 18 Dec, 2012 [facility] [place] [facility] [address] [id number] [place] [address]- 8225 30 Nov, 2012 [facility] [place] [facility] [address] [id number] [place] [address] 8133 Nov, [facility] [place] [facility] [address] [id number] [place] [address] Nov, [facility] [place] [facility] [address] [id number] [place] [address]- 4391 Nov, [facility] [place] [facility] [address] [id number] [place] [address]- 5061 Nov, [facility] [place] [facility] [address] [id number] [place] [address]- 4260 Nov, [facility] [place] [facility] [address] [id number] [place] [address]- 2056 Nov, [facility] [place] [facility] [address] [id number] [place] [address]- 6941 Nov, [facility] [place] [facility] [address] [id number] [place] [address]- 8427 Nov, [facility] [place] [facility] [address] [id number] [place] [address]- 7227 Nov, [facility] [place] [facility] [address] [id number] [place] [address]- 9924 Oct, [facility] [place] [facility] [address] [id number] [place] [address]- 8825 Oct, [facility] [place] [facility] [address] [id number] [place] [address]- 4020 Oct, [facility] [place] [facility] [address] [id number] [place] [address]- 2221 Oct, [facility] [place] [facility] [address] [id number] [place] [address]- 6182 Oct, [facility] [place] [facility] [address] [id number] [place] [address]- 9599 Oct, [facility] [place] [facility] [address] [id number] [place] [address]- 9387 Oct, [facility] [place] [facility] [address] [id number] [place] [address]- 4449 Oct, [facility] [place] [facility] [address] [id number] [place] [address]- 2252 Sep, [facility] [place] [facility] [address] [id number] [place] [address]- 1642 Sep, [facility] [place] [facility] [address] [id number] [place] [address]- 2795 Sep, [facility] [place] [facility] [address] [id number] [place] [address]- 9535 Sep, [facility] [place] [facility] [address] [id number] [place] [address]- 6071 August, [facility] [address] [id number] [place] [address]- 6348 August, [facility] [place] [facility] [address] [id number] [place] [address]- 6[address] August, [facility] [address] [place] [id number] Jul, [facility] [address] [place] [id number] Jul, [facility] [address] [id number] [place] [address]- 9272 Jun, [facility] [place] [facility] [address] [id number] [place] [address]- 9891 May, [facility] [place] [facility] [address] [id number] [place] [address]- 5035 May, [facility] [place] [facility] [address] [id number] [place] [address]- 8497 Apr, [facility] [place] [facility] [address] [id number] [place] [address]- 1263 Feb, [facility] [place] [facility] [address] [id number] [place] [address]- [address] Feb, [facility] [place] [facility] [address] [id number] [place] [address]- 5416 Jan, [facility] [place] [facility] [address] [id number] [place] [address]- 1116 Jan, [facility] [place] [facility] [address] [id number] [place] [address]- 8284 Jan, [facility] [place] [facility] [address] [id number] [place] [address]- 6130 Jan, [facility] [place] [facility] [address] [id number] [place] [address]- 2240 Jan, [facility] [place] [facility] [address] [id number] [place] [address]- 3136 Dec, [facility] [address] [id number] [place] [address]- 3849 Dec, [facility] [address] [id number] [id number] Nov, [facility] [address] [id number] [place] [address]- 7402 Nov, [facility] [place] [facility] [address] [id number] [place] [address]- 7905 Nov, [facility] [address] [id number] [place] [address]- 7771 Nov, [facility] [address] [id number] [place] [address]- 9036 August, [facility] [address] [id number] [place] [address]- 5483 August, [facility] [address] [id number] [place] [address]- 8375 August, [facility] [address] [id number] [place] [address]- 2285 Jul, [facility] [address] [id number] [place] [address]- 0402 May, [facility] [place] [facility] [address] [id number] [place] [address]- 7014 May, [facility] [place] [facility] [address] [id number] [place] [address]- 5350 May, [facility] [place] [facility] [address] [id number] [place] [address]- 7190 Mar, [facility] [place] [facility] [address] [id number] [place] [address] Jan, [facility] [place] [facility] [address] [id number] [place] [address] Jan, [facility] [address] [id number] [address]- [address]92 Oct, [facility] [address] [id number] [id number] August, [facility] [id number] [address] Jan, [facility] [id number] [address]- 3025 Jan, [facility] [id number] [address]- 275[address] Jan, [facility] [id number] [address]- 7[address] Jan, IMMUNIZATIONS No Known Immunizations SOCIAL HISTORY Never Assessed [place] [place] VITAL SIGNS MEDICATIONS Unknown [...]
--- OUTSIDE RECORDS SUMMARY | 2018-08-15 15:21 | XMS REPORT ---
Author Author Migration, Doctor Organization [facility] Address Unknown Phone Unavailable Care Team Providers Care Integrity Consultant Name Role Phone Migration, Doctor Unavailable Unavailable PROBLEMS Type Condition ICD9-CM Code BKA03-YV Code Onset Dates Condition Status SNOMED Code Problem Allergic rhinitis, unspecified allergic rhinitis type J30.9 Active 62291698 Problem Hyperammonemia E72.20 Active 1855677 Problem Obsessive compulsive disorder F42 Active 256278665 Problem Mood disorder F39 Active 69140023 Problem Seasonal allergic rhinitis due to other allergic trigger J30.89 Active 934696733 Problem Chronic hepatitis C without hepatic coma B18.2 Active 538915154 Problem Anxiety F41.9 Active 12103529 Problem History of alcohol abuse Z87.898 Active 013932258 Problem Hypertension, benign I10 Active 09593998 Problem Generalized anxiety disorder F41.1 Active 50061272 Problem Other chronic pain G89.29 Active 88738154 Problem Mild episode of recurrent major depressive disorder F33.0 Active 453115926 ALLERGIES No Information ENCOUNTERS Encounter Location Date Diagnosis [place] [id number] [place] [address] 23686- 6676 August, [place] [id number] [place] [address] 32878- 1485 Jun, Anxiety F41.9 [place] [address] 63366- 0578 14 Jun, 2018 Mild episode of recurrent major depressive disorder F33.0 [place] [address] 08131- 9552 May, Mood disorder F39 ; Generalized anxiety disorder F41.1 ; Mild episode of recurrent major depressive disorder F33.0 and Anxiety F41.9 [place] [id number] [place] [address] 25547- 3262 Mar, Anxiety F41.9 and Seasonal allergic rhinitis due to other allergic trigger J30.89 [facility] [address] 03138- 5139 Feb, [place] [address] 53062- 6610 Feb, Generalized anxiety disorder F41.1 ; Eczema of both hands L30.9 and Encounter for immunization Z23 [place] [address] 97895- 5800 Feb, Chronic hepatitis C without hepatic coma B18.2 [place] [address] 99734- 7557 Jan, Mood disorder F39 [place] [address] 51794- 0968 Jan, Chronic hepatitis C without hepatic coma B18.2 [place] [address] 28193- 8291 Dec, Mild episode of recurrent major depressive disorder F33.0 ; Other chronic pain G89.29 ; Pain in left shoulder M25.512 and Pain in right shoulder M25.511 [place] [address] 38893- 4800 Dec, Chronic hepatitis C without hepatic coma B18.2 [place] [address] 07742- 0379 Nov, Chronic hepatitis C without hepatic coma B18.2 [place] [id number] [place] [address] 48230- 9713 Oct, Bronchitis J40 [place] [address] 84455- 9273 Oct, Chronic hepatitis C without hepatic coma B18.2 and Cough R05 [place] [address] 25738- 6848 Sep, Chronic hepatitis C without hepatic coma B18.2 [place] [address] [address] 2295 August, Chronic hepatitis C without hepatic coma B18.2 [facility] [id number] [place] [address] 19229- 9606 Jul, Chronic hepatitis C without hepatic coma B18.2 [facility] [address] [address] 9010 Jul, Generalized anxiety disorder F41.1 ; Mood disorder F39 and History of hepatitis C Z86.19 [facility] [address] [address] 2944 Jul, Chronic hepatitis C without hepatic coma B18.2 [facility] [id number] [place] [address] 65644- 4065 Jun, Chronic hepatitis C without hepatic coma B18.2 [facility] [id number] [place] [address] 20955- 9826 Jun, [facility] [id number] [place] [address] 27290- 9612 May, Chronic hepatitis C without hepatic coma B18.2 [facility] [address] [address]- 3997 May, Hypertension, benign I10 [facility] [address] [address]- 6042 Apr, Chronic hepatitis C without hepatic coma B18.2 [facility] [address] [address]- 9353 Apr, Hypertension, benign I10 [facility] [id number] [place] [address] 09811- 3778 Mar, Chronic hepatitis C without hepatic coma B18.2 [facility] [address] [address]- 2335 Mar, Hypertension, benign I10 [facility] [id number] [place] [address] 86851- 2705 Mar, Hypertension, benign I10 ; Encounter for immunization Z23 and Strain of right Achilles tendon, initial encounter S86.011A [facility] [id number] [place] [address] 72171- 5016 Feb, Chronic hepatitis C without hepatic coma B18.2 [facility] [id number] [place] [address] 68506- 2018 Jan, Chronic hepatitis C without hepatic coma B18.2 [facility] [id number] [place] [address] 30057 -2280 Jan, Toe pain, right M79.674 and Cellulitis of foot, right L03.115 [facility] [id number] [place] [address] 98141- 8243 Dec, Chronic hepatitis C without hepatic coma B18.2 [facility] [id number] [place] [address] 62254- 8081 Nov, Chronic hepatitis C without hepatic coma B18.2 and Eczema of both hands L30.9 [facility] [id number] [place] [address] 08815- 1979 Nov, [facility] [id number] [place] [address] 86272- 0148 Oct, [facility] [id number] [place] [address] 72079- 1796 Sep, [facility] [id number] [place] [address] 98041- 4789 August, [facility] [id number] [place] [address] 79868- 4440 August, [facility] [id number] [place] [address] 40676- 3093 Jul, [facility] [id number] [place] [address] 14127- 7417 Jul, [facility] [address], [place] [address]- 6067 Jun, [facility] [address] [address]- 7986 Jun, [facility] [address], [place] [address]- 6986 May, [facility] [id number] [place] [address] 37407- 4761 Apr, Chronic hepatitis C without hepatic coma B18.2 ; Hyperglycemia R73.9 and Hypertension, benign I10 [facility] [id number] [place] [address] 68414- 5869 Apr, Chronic hepatitis C without hepatic coma B18.2 ; Mood disorder F39 ; Hypertension, benign I10 and Hyperglycemia R73.9 [facility] [address] [address]- 1182 Apr, [facility] [address], [place] [address]- 9651 Apr, [facility] [address] [address]- 2056 Apr, [facility] [address], [place] [address]- 0143 Feb, [facility] [address], [place] [address]- 0023 Feb, [facility] [address] [address]- 2022 Feb, [facility] [address], [place] [address]- 9003 Feb, [facility] [address] [address]- 7254 Jan, [facility] [address] [address]- 6965 Jan, Chronic hepatitis C without hepatic coma B18.2 ; Mood disorder F39 ; Encounter for immunization Z23 and Chronic viral hepatitis C B18.2 [facility] [id number] [place] [address] 15887- 1543 Jan, [facility] [id number] [place] [address] 68745- 2805 Jan, [facility] [id number] [place] [address] 92467- 3495 Dec, [facility] [id number] [place] [address] 70207- 3727 Dec, [facility] [id number] [place] [address] 96793- 6366 Nov, [facility] [id number] [place] [address] 93350- 3635 Nov, Weakness of both legs M62.81 [facility] [id number] [place] [address] 62140- 5247 Nov, [facility] [id number] [place] [address] 29997- 1622 Nov, [facility] [id number] [place] [address] 20961- 3609 Nov, [facility] [address], [place] [address]- 4494 Nov, Eczema, unspecified type L30.9 [facility] [id number] [place] [address] 54155- 2442 Nov, [facility] [id number] [place] [address] 42932- 4529 Nov, Eczema, unspecified type L30.9 ; Cessation of tobacco use in previous 12 months Z87.891 and Weakness of both legs M62.81 [facility] [address], [place] [address]- 1084 Oct, [facility] [id number] [place] [address]- 6902 Oct, [facility] [address], [place] [address]- 5685 Oct, [facility] [address], [place] [address]- 0288 Oct, Chronic viral hepatitis C B18.2 [facility] [id number] [place] [address] 83286- 9534 Sep, [facility] [id number] [place] [address] 41285- 4726 Sep, 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 and Generalized anxiety disorder F41.1 [facility] [id number] [place] [address] 19321- 3236 Sep, [facility] [id number] [place] [address] 81857- 6870 August, [facility] [id number] [place] [address] 19257- 7434 August, Hyperammonemia E72.20 [facility] [id number] [place] [address] 38388- 9099 August, Hyperammonemia E72.20 [facility] [address], [place] [address]- 7437 August, Hyperammonemia E72.20 and Chronic hepatitis C without hepatic coma B18.2 [facility] [address], [place] [address]- 3776 August, Chronic viral hepatitis C B18.2 [facility] [id number] [place] [address] 83007- 2040 August, [facility] [address], [place] [address]- 4988 Jul, Chronic viral hepatitis C B18.2 and Hyperammonemia E72.20 [facility] [address] [place] [place] [address]- 7706 13 Jul, 2015 Chronic viral hepatitis C B18.2 [facility] [address] [place] [address]- 3276 13 Jul, 2015 [facility] [address] [place] [address] 2546 04 Jul, 2015 [facility] [id number] [place] [address], [place] [address] 2546 28 Jun, 2015 [facility] [address] [place] [address] 2546 23 Jun, 2015 Chronic viral hepatitis C B18.2 and Hyperammonemia E72.20 [facility] [address] [place] [address]- 0726 21 Jun, 2015 [facility] [address] [place] [address]- 1886 18 Jun, 2015 [facility] [address] [place] [address]- 4829 16 Jun, 2015 Chronic viral hepatitis C B18.2 [facility] [address] [place] [address]- 1146 10 Jun, 2015 [facility] [address] [place] [address]- 254 07 Jun, 2015 Chronic viral hepatitis C B18.2 [facility] [address], [place] [address]- 2546 17 May, 2015 Hepatitis C, chronic B18.2 and Chronic viral hepatitis C B18.2 [facility] [address] 6746 May, [facility] [address] [address]- 3117 Apr, [facility] [address] [place] [address]- 2546 Apr, Chronic viral hepatitis C B18.2 and Hyperammonemia E72.20 [facility] [id number] [place] [address] 78484- 5607 Apr, Chronic viral hepatitis C B18.2 [facility] [id number] [place] [address] 63962- 1784 Apr, Hyperammonemia E72.20 [facility] [address] 81357- 3007 Apr, [facility] [id number] [place] [address] 56410- 7563 Apr, [place] [address] 33611- 8504 Apr, Chronic hepatitis C without hepatic coma B18.2 ; Hyperammonemia E72.20 and Chronic viral hepatitis C B18.2 [place] [id number] [place] [address] 78436- 4856 Mar, Shortness of breath R06.02 [place] [id number] [place] [address] 75823- 8201 Mar, Mood disorder F39 and Major depressive disorder, recurrent episode, unspecified 296.30 [facility] [id number] [place] [address] 18850- 5145 Mar, [place] [id number] [place] [address] 64106- 8791 18 Mar, 2015 [facility] [id number] [place] [address] 50369- 9322 15 Mar, 2015 [facility] [id number] [place] [address] 23332 -5942 Mar, Seasonal allergies J30.2 ; Shortness of breath R06.02 and Cough R05 [facility] [id number] [place] [address] 91111- 4216 Mar, Hyperammonemia E72.20 ; Mood disorder F39 and History of alcohol abuse Z87.898 [facility] [id number] [place] [address] 70693- 9448 Mar, Hyperammonemia E72.20 [facility] [id number] [place] [address] 31778- 5256 Mar, [facility] [id number] [place] [address] 79870- 6696 Feb, [facility] [id number] [place] [address] 43284- 8551 Feb, [facility] [id number] [place] [address] 09016- 0175 Feb, Hyperammonemia E72.20 [facility] [id number] [place] [address] 24922- 2107 Feb, [facility] [id number] [place] [address] 08360- 8379 Feb, [facility] [id number] [place] [address] 94098- 2055 Feb, [facility] [id number] [place] [address] 54328- 0228 Feb, [facility] [id number] [place] [address] 75681- 9906 Feb, Chronic viral hepatitis C B18.2 [facility] [id number] [place] [address] 57173 2545 Feb, Chronic viral hepatitis C B18.2 [facility] [id number] [place] [address] 41958 2546 Feb, [facility] [id number] [place] [address] 12146 2548 Feb, Chronic viral hepatitis C B18.2 and Confusion R41.0 [facility] [id number] [place] [address] 76108- 8789 Feb, [facility] [address] [facility] [id number] [address]- 2522 Jan, [facility] [id number] [place] [address] 77129- 3064 Jan, Confusion R41.0 [facility] [id number] [place] [address] 77249- 7542 Jan, [facility] [id number] [place] [address] 29110- 3181 Jan, [facility] [id number] [place] [address] 86591- 4388 Jan, [facility] [id number] [place] [address] 90306- 6448 Jan, [facility] [id number] [place] [address] 38909- 5706 Jan, Chronic viral hepatitis C B18.2 and 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 [facility] [address] [place] [address] 19891- 5455 Jan, [facility] [id number] [place] [address] 31133- 5601 Jan, [facility] [id number] [place] [address] 74642- 7435 Jan, [facility] [id number] [place] [address] 21441- 7911 Jan, [facility] [address] [place] [address] 16928- 8634 Jan, Chronic viral hepatitis C B18.2 [facility] [id number] [place] [address] 64339- 6878 Jan, [facility] [address] [address]- 3904 14 Jan, 2015 Back pain at L4-L5 level M54.5 and Confusion R41.0 [facility] [id number] [place] [address] 79112- 9738 Jan, [place] [id number] [place] [address] 73880- 0177 30 Dec, 2014 Chronic viral hepatitis C B18.2 and Flu vaccine need V04.81 [place] [address] 06288- 5626 30 Dec, 2014 Chronic viral hepatitis C B18.2 [place] [id number] [place] [address] 76341- 1275 28 Dec, 2014 [place] [address] 29374- 7950 Dec, Polyuria 788.42 [place] [id number] [place] [address] 07022- 5936 Dec, Polyuria 788.42 ; Polydipsia 783.5 ; Dizziness 780.4 and Hepatitis C, chronic 070.54 [place] [id number] [place] [address] 53604- 7270 Dec, Major depressive disorder, recurrent episode, unspecified 296.30 and Generalized anxiety disorder 300.02 [place] [id number] [place] [address] 23007- 2099 Nov, [place] [id number] [place] [address] 41329- 5010 Nov, [place] [id number] [place] [address] 53292- 6704 Nov, [facility] [id number] [place] [address] 57218- 0976 Oct, [facility] [id number] [place] [address] 16370- 8076 Sep, [facility] [id number] [place] [address] 59092- 0104 August, Obsessive-compulsive disorders 300.3 ; Generalized anxiety disorder 300.02 and Major depressive disorder, recurrent episode, unspecified 296.30 [facility] [id number] [address] August, Chronic hepatitis C without mention of hepatic coma 070.54 ; Hypertension 401.9 and Seasonal allergies 477.9 [facility] [id number] [address] Jul, [facility] [id number] [place] [address] 67119- 0495 Jul, [facility] [id number] [address] 100[address] Jun, [facility] [id number] [place] [address] 14629- 1711 Jun, [facility] [id number] [address] May, [facility] [id number] [address] May, [facility] [id number] [address] May, [facility] [id number] [address] 8[address] May, [facility] [id number] [place] [address] Apr, [facility] [id number] [place] [address] 1337 Apr, [facility] [id number] [place] [address] 3948 Apr, [facility] [id number] [id number] [address] Apr, [facility] [id number] [address] 7347 Apr, [facility] [address] [facility] [id number] [place] [address] Apr, [facility] [place] [facility] [address] [id number] [place] [address] 9841 Mar, [facility] [place] [facility] [address] [id number] [place] [address] 1314 Mar, [facility] [place] [facility] [address] [id number] [place] [address]- 2234 Mar, [facility] [place] [facility] [address] [id number] [place] [address] Mar, [facility] [place] [facility] [address] [id number] [place] [address]- 4007 Mar, [facility] [place] [facility] [address] [id number] [place] [address] Mar, [facility] [place] [facility] [address] [id number] [place] [address]- 2497 Mar, [facility] [place] [facility] [address] [id number] [place] [address] 1080 Mar, [facility] [place] [facility] [address] [id number] [place] [address] Mar, [facility] [place] [facility] [address] [id number] [place] [address] 2982 Feb, [facility] [place] [facility] [address] [id number] [place] [address]- 1012 Feb, [facility] [place] [facility] [address] [id number] [place] [address]- 8270 Feb, [facility] [place] [facility] [address] [id number] [place] [address]- 6447 Feb, [facility] [place] [facility] [address] [id number] [place] [address]- 3956 Feb, [facility] [place] [facility] [address] [id number] [place] [address]- 5343 Jan, [facility] [place] [facility] [address] [id number] [place] [address]- 8615 Jan, [facility] [place] [facility] [address] [id number] [place] [address]- 7324 Jan, [facility] [place] [facility] [address] [id number] [place] [address]- 9137 Jan, [facility] [place] [facility] [address] [id number] [place] [address]- 8025 Jan, [facility] [place] [facility] [address] [id number] [place] [address] Jan, [facility] [place] [facility] [address] [id number] [place] [address] Jan, [facility] [place] [facility] [address] [id number] [place] [address] Jan, [facility] [place] [facility] [address] [id number] [place] [address] Jan, [facility] [place] [facility] [address] [id number] [place] [address] Nov, [facility] [place] [facility] [address] [id number] [place] [address] Nov, [facility] [place] [facility] [address] [id number] [place] [address] Nov, [facility] [place] [facility] [address] [id number] [place] [address] Oct, [facility] [place] [facility] [address] [id number] [place] [address]64 Oct, [facility] [place] [facility] [address] [id number] [place] [address] Oct, [facility] [place] [facility] [address] [id number] [place] [address] Oct, [facility] [place] [facility] [address] [id number] [place] [address] Sep, [facility] [place] [facility] [address] [id number] [place] [address] Sep, [facility] [place] [facility] [address] [id number] [place] [address]- [address]65 Sep, [facility] [place] [facility] [address] [id number] [place] [address] Sep, [facility] [place] [facility] [address] [id number] [place] [address] 7034 Sep, [facility] [place] [facility] [address] [id number] [place] [address] 96[address] Sep, [facility] [place] [facility] [address] [id number] [place] [address]324 August, [facility] [place] [facility] [address] [id number] [place] [address] 7565 August, [facility] [place] [facility] [address] [id number] [place] [address] Jul, [facility] [place] [facility] [address] [id number] [place] [address] 3298 Jul, [facility] [place] [facility] [address] [id number] [place] [address] 09[address] Jul, [facility] [place] [facility] [address] [id number] [place] [address] Jul, [facility] [place] [facility] [address] [id number] [place] [address] Jul, [facility] [place] [facility] [address] [id number] [place] [address]- 5068 Jul, [facility] [place] [facility] [address] [id number] [place] [address]- 7407 Jul, [facility] [place] [facility] [address] [id number] [place] [address]- 4966 Jul, [facility] [place] [facility] [address] [id number] [place] [address]- 5[address] Jul, [facility] [place] [facility] [address] [id number] [place] [address] Jul, [facility] [place] [facility] [address] [id number] [place] [address] Jun, [facility] [place] [facility] [address] [id number] [place] [address]395 Jun, [facility] [place] [facility] [address] [id number] [place] [address]- 9966 Jun, [facility] [place] [facility] [address] [id number] [place] [address] 36[address] Jun, [facility] [place] [facility] [address] [facility] [id number] [place] [address]- 9243 May, [facility] [place] [facility] [address] [id number] [place] [address] 43[address] May, [facility] [place] [facility] [address] [id number] [place] [address]- 2764 May, [facility] [place] [facility] [address] [facility] [id number] [place] [address]- 7[address] May, [facility] [place] [facility] [address] [facility] [id number] [place] [address]- 6[address] May, [facility] [place] [facility] [address] [id number] [place] [address] 5078 May, [facility] [place] [facility] [address] [id number] [place] [address] Mar, [facility] [place] [facility] [address] [id number] [place] [address] Mar, [facility] [place] [facility] [address] [facility] [id number] [place] [address] 7594 Mar, [facility] [place] [facility] [address] [id number], [place] [address] 16 Mar, 2013 [facility] [place] [facility] [address] [id number] [place] [address]- 0[address] 16 Mar, 2013 [facility] [place] [facility] [address] [id number], [place] [address]90 16 Mar, 2013 [facility] [place] [facility] [address] [facility] [id number] [place] [address]- 0489 Feb, [facility] [place] [facility] [address] [id number], [place] [address] Feb, [facility] [place] [facility] [address] [facility] [id number] [place] [address]- 2069 Feb, [facility] [place] [facility] [address] [id number], [place] [address] Feb, [facility] [address] [facility] [id number], [place] [address] Feb, [facility] [place] [facility] [address] [id number], [place] [address]- [address] 12 Feb, 2013 [facility] [place] [facility] [address] [facility] [id number], [place] [address]- [address] 07 Feb, 2013 [facility] [place] [facility] [address] [facility] [id number], [place] [address] 07 Feb, 2013 [facility] [place] [facility] [address] [facility] [id number], [place] [address]- [address] 18 Jan, 2013 [facility] [place] [facility] [address] [id number], [place] [address] 1274 18 Jan, 2013 [facility] [place] [facility] [address] [id number], [place] [address] 17 Jan, 2013 [facility] [place] [facility] [address] [facility] [id number], [place] [address]- 6539 16 Jan, 2013 [facility] [place] [facility] [address] [facility] [id number], [place] [address] 8296 16 Jan, 2013 [facility] [place] [facility] [address] [id number] [place] [address]- [address]130 14 Jan, 2013 [facility] [place] [facility] [address] [id number] [place] [address]- 8682 14 Jan, 2013 [facility] [place] [facility] [address] [id number] [place] [address]- 7570 11 Jan, 2013 [facility] [place] [facility] [address] [id number] [place] [address]- 7822 11 Jan, 2013 [facility] [place] [facility] [address] [id number] [place] [address]- 9848 10 Jan, 2013 [facility] [place] [facility] [address] [id number] [place] [address]- 4930 27 Dec, 2012 [facility] [place] [facility] [address] [id number] [place] [address]- 4795 18 Dec, 2012 [facility] [place] [facility] [address] [id number] [place] [address]- 0579 18 Dec, 2012 [facility] [place] [facility] [address] [id number] [place] [address]- 4056 30 Nov, 2012 [facility] [place] [facility] [address] [id number] [place] [address]- 2920 29 Nov, 2012 [facility] [place] [facility] [address] [id number] [place] [address]- 4744 Nov, [facility] [place] [facility] [address] [id number] [place] [address]- 2110 Nov, [facility] [place] [facility] [address] [id number] [place] [address]- 2430 Nov, [facility] [place] [facility] [address] [id number] [place] [address]- 4775 Nov, [facility] [place] [facility] [address] [id number] [place] [address]- 3345 Nov, [facility] [place] [facility] [address] [id number] [place] [address]- 0264 Nov, [facility] [place] [facility] [address] [id number] [place] [address]- 1976 Nov, [facility] [place] [facility] [address] [id number] [place] [address]- 9427 Nov, [facility] [place] [facility] [address] [id number] [place] [address]- 4872 Oct, [facility] [place] [facility] [address] [id number] [place] [address]- 0234 Oct, [facility] [place] [facility] [address] [id number] [place] [address]- 9726 Oct, [facility] [place] [facility] [address] [id number] [place] [address]- 9339 Oct, [facility] [place] [facility] [address] [id number] [place] [address]- 3094 Oct, [facility] [place] [facility] [address] [id number] [place] [address]- 1099 Oct, [facility] [place] [facility] [address] [id number] [place] [address]- 7043 Oct, [facility] [place] [facility] [address] [id number] [place] [address]- 2614 Oct, [facility] [place] [facility] [address] [id number] [place] [address]- 2443 Sep, [facility] [place] [facility] [address] [id number] [place] [address]- 4977 Sep, [facility] [place] [facility] [address] [id number] [place] [address]- 8735 Sep, [facility] [place] [facility] [address] [id number] [place] [address]- 6425 Sep, [facility] [place] [facility] [address] [id number] [place] [address]- 8651 August, [facility] [place] [facility] [address] [id number] [place] [address]- 9610 August, [facility] [address] [id number] [place] [address]- 4504 August, [facility] [address] [id number] Jul, [facility] [address] [id number] Jul, [facility] [address] [id number] [place] [address]- 3373 Jun, [facility] [address] [id number] [place] [address]- 8000 May, [facility] [address] [id number] [place] [address]- 9596 May, [facility] [address] [id number] [place] [address]- 1678 Apr, [facility] [address] [id number] [place] [address]- 1665 Feb, [facility] [address] [id number] [place] [address]- 2284 Feb, [facility] [address] [facility] [id number] [place] [address]- 9714 Jan, [facility] [place] [facility] [address] [id number] [place] [address]- 3999 Jan, [facility] [place] [facility] [address] [id number], [place] [address]- 1532 Jan, [facility] [place] [facility] [address] [id number] [place] [address]- 3998 Jan, [facility] [place] [facility] [address] [id number] [place] [address]- 7787 Jan, [facility] [place] [facility] [address] [id number] [place] [address]- 3446 Dec, [facility] [place] [facility] [address] [id number] [place] [address]- 6869 Dec, [facility] [address] [id number] [place] [id number] Nov, [facility] [address] [id number] [place] [address]- 7043 Nov, [facility] [place] [facility] [address] [id number] [place] [address]- 1018 Nov, [facility] [place] [facility] [address] [id number] [place] [address]- 6127 Nov, [facility] [place] [facility] [address] [id number] [place] [address]- 7191 August, [facility] [place] [facility] [address] [id number] [place] [address]- 8547 August, [facility] [place] [facility] [address] [id number] [place] [address]- 8255 August, [facility] [place] [facility] [address] [id number] [place] [address]- 6117 Jul, [facility] [place] [facility] [address] [id number] [place] [address]- 0156 May, [facility] [place] [facility] [address] [id number] [place] [address]- 5325 May, [facility] [place] [facility] [address] [id number], [place] [address]- 0079 May, [facility] [place] [facility] [address] [id number], [place] [address]- 1260 Mar, [facility] [place] [facility] [address] [id number] [place] [address]- 3900 Jan, [facility] [place] [facility] [address] [id number] [place] [address]- 6723 Jan, [facility] [place] [facility] [address] [id number] [place] [address]- 7593 Oct, [facility] [place] [facility] [address] [facility] [id number] [place] [address]- 1491 August, [facility] [address] [facility] [id number], [place] [address]- 2017 Jan, [facility] [address] [facility] [id number] 5756 Jan, [facility] [address] [facility] [id number], [place] [address]- 2072 Jan, [facility] [address] [facility] [id number], [place] [address]- 7759 Jan, IMMUNIZATIONS No Known Immunizations SOCIAL HISTORY Never Assessed [place]AS[place] [place] VITAL SIGNS MEDICATIONS Unknown [...]
--- OUTSIDE RECORDS SUMMARY | 2018-08-15 15:22 | XMS REPORT ---
Author Author Migration, Doctor Organization [facility] Address Unknown Phone Unavailable Care Team Providers Care Professor Of Historical Theology Name Role Phone Migration, Doctor Unavailable Unavailable PROBLEMS Type Condition ICD9-CM Code [id number] Code Onset Dates Condition Status SNOMED Code Problem Allergic rhinitis, unspecified allergic rhinitis type J30.9 Active 87693211 Problem Hyperammonemia E72.20 Active 2337186 Problem Obsessive compulsive disorder F42 Active 751419210 Problem Mood disorder F39 Active 07363452 Problem Seasonal allergic rhinitis due to other allergic trigger J30.89 Active 410609531 Problem Chronic hepatitis C without hepatic coma B18.2 Active 186132622 Problem Anxiety F41.9 Active 16201976 Problem History of alcohol abuse Z87.898 Active 209737019 Problem Hypertension, benign I10 Active 19357899 Problem Generalized anxiety disorder F41.1 Active 34070836 Problem Other chronic pain G89.29 Active 12003148 Problem Mild episode of recurrent major depressive disorder F33.0 Active 549659567 ALLERGIES No Information ENCOUNTERS Encounter Location Date Diagnosis [place] [id number] [place] [address] 63179- 7541 August, [place] [id number] [place] [address] 11888- 1773 Jun, Anxiety F41.9 [place] [address] 80519- 5947 14 Jun, 2018 Mild episode of recurrent major depressive disorder F33.0 [place] [address] 62129- 1544 May, Mood disorder F39 ; Generalized anxiety disorder F41.1 ; Mild episode of recurrent major depressive disorder F33.0 and Anxiety F41.9 [place] [id number] [place] [address] 00832- 5502 Mar, Anxiety F41.9 and Seasonal allergic rhinitis due to other allergic trigger J30.89 [facility] [address] 76963- 3721 Feb, [place] [address] 83025- 5354 Feb, Generalized anxiety disorder F41.1 ; Eczema of both hands L30.9 and Encounter for immunization Z23 [place] [address] 61564- 5348 Feb, Chronic hepatitis C without hepatic coma B18.2 [place] [address] 12842- 7147 Jan, Mood disorder F39 [place] [address] 27059- 1845 Jan, Chronic hepatitis C without hepatic coma B18.2 [place] [address] 27624- 9525 Dec, Mild episode of recurrent major depressive disorder F33.0 ; Other chronic pain G89.29 ; Pain in left shoulder M25.512 and Pain in right shoulder M25.511 [place] [address] 07279- 9065 Dec, Chronic hepatitis C without hepatic coma B18.2 [place] [address] 95343- 9914 Nov, Chronic hepatitis C without hepatic coma B18.2 [place] [id number] [place] [address] 65775- 7114 Oct, Bronchitis J40 [place] [address] 29720- 5208 Oct, Chronic hepatitis C without hepatic coma B18.2 and Cough R05 [place] [address] 64260- 5115 Sep, Chronic hepatitis C without hepatic coma B18.2 [place] [id number] [address] 9961 August, Chronic hepatitis C without hepatic coma B18.2 [facility] [id number] [place] [address] 56047- 8466 Jul, Chronic hepatitis C without hepatic coma B18.2 [facility] [id number] [address]- 6556 Jul, Generalized anxiety disorder F41.1 ; Mood disorder F39 and History of hepatitis C Z86.19 [facility] [id number], [place] [address]- 1860 Jul, Chronic hepatitis C without hepatic coma B18.2 [facility] [id number] [place] [address] 85399- 6927 Jun, Chronic hepatitis C without hepatic coma B18.2 [facility] [id number] [place] [address] 51417- 2207 Jun, [facility] [id number] [place] [address] 50403- 4507 May, Chronic hepatitis C without hepatic coma B18.2 [facility] [id number], [place] [address]- 1107 May, Hypertension, benign I10 [facility] [id number], [place] [address]- 3638 Apr, Chronic hepatitis C without hepatic coma B18.2 [facility] [id number], [place] [address]- 4252 Apr, Hypertension, benign I10 [facility] [id number] [place] [address] 44275- 7130 Mar, Chronic hepatitis C without hepatic coma B18.2 [facility] [id number], [place] [address]- 1761 Mar, Hypertension, benign I10 [facility] [id number] [place] [address] 91165- 7343 Mar, Hypertension, benign I10 ; Encounter for immunization Z23 and Strain of right Achilles tendon, initial encounter S86.011A [facility] [id number] [place] [address] 43165- 7638 Feb, Chronic hepatitis C without hepatic coma B18.2 [facility] [id number] [place] [address] 98037- 1241 Jan, Chronic hepatitis C without hepatic coma B18.2 [facility] [id number] [place] [address] 02640 -4614 Jan, Toe pain, right M79.674 and Cellulitis of foot, right L03.115 [facility] [id number] [place] [address] 45671- 4198 Dec, Chronic hepatitis C without hepatic coma B18.2 [facility] [id number] [place] [address] 70927- 8374 Nov, Chronic hepatitis C without hepatic coma B18.2 and Eczema of both hands L30.9 [facility] [id number] [place] [address] 30098- 2632 Nov, [facility] [id number] [place] [address] 21706- 5700 Oct, [facility] [id number] [place] [address] 52920- 5839 Sep, [facility] [id number] [place] [address] 31266- 6569 August, [facility] [id number] [place] [address] 05004- 8563 August, [facility] [id number] [place] [address] 27316- 9830 Jul, [facility] [id number] [place] [address] 53802- 3921 Jul, [facility] [id number], [place] [address]- 1873 Jun, [facility] [id number], [place] [address]- 8755 Jun, [facility] [id number], [place] [address]- 4030 May, [facility] [id number] [place] [address] 24481- 2432 Apr, Chronic hepatitis C without hepatic coma B18.2 ; Hyperglycemia R73.9 and Hypertension, benign I10 [facility] [id number] [place] [address] 22123- 1122 Apr, Chronic hepatitis C without hepatic coma B18.2 ; Mood disorder F39 ; Hypertension, benign I10 and Hyperglycemia R73.9 [facility] [id number], [place] [address]- 6133 Apr, [facility] [id number], [place] [address]- 4289 Apr, [facility] [id number], [place] [address]- 7300 Apr, [facility] [id number], [place] [address]- 1726 Feb, [facility] [id number], [place] [address]- 2228 Feb, [facility] [id number], [place] [address]- 0620 Feb, [facility] [id number], [place] [address]- 1111 Feb, [facility] [id number], [place] [address]- 9394 Jan, [facility] [id number], [place] [address]- 8084 Jan, Chronic hepatitis C without hepatic coma B18.2 ; Mood disorder F39 ; Encounter for immunization Z23 and Chronic viral hepatitis C B18.2 [facility] [id number] [place] [address] 03995- 7642 Jan, [facility] [id number] [place] [address] 06558- 5568 Jan, [facility] [id number] [place] [address] 22214- 3403 Dec, [facility] [id number] [place] [address] 95561- 6741 Dec, [facility] [id number] [place] [address] 32775- 4152 Nov, [facility] [id number] [place] [address] 20324- 4038 Nov, Weakness of both legs M62.81 [facility] [id number] [place] [address] 55245- 1637 Nov, [facility] [id number] [place] [address] 88835- 7635 Nov, [facility] [id number] [place] [address] 61818- 5832 Nov, [facility] [id number], [place] [address]- 4885 Nov, Eczema, unspecified type L30.9 [facility] [id number] [place] [address] 83600- 0036 Nov, [facility] [id number] [place] [address] 28324- 2783 Nov, Eczema, unspecified type L30.9 ; Cessation of tobacco use in previous 12 months Z87.891 and Weakness of both legs M62.81 [facility] [id number], [place] [address]- 0195 Oct, [facility] [id number], [place] [address]- 6434 Oct, [facility] [id number], [place] [address]- 8314 Oct, [facility] [id number], [place] [address]- 5955 Oct, Chronic viral hepatitis C B18.2 [facility] [id number] [place] [address] 06140- 2674 Sep, [facility] [id number] [place] [address] 19964- 5390 Sep, 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 and Generalized anxiety disorder F41.1 [facility] [id number] [place] [address] 51892- 5798 Sep, [facility] [id number] [place] [address] 79803- 7158 August, [facility] [id number] [place] [address] 08336- 2763 August, Hyperammonemia E72.20 [facility] [id number] [place] [address] 01466- 8797 August, Hyperammonemia E72.20 [facility] [id number], [place] [address]- 3800 August, Hyperammonemia E72.20 and Chronic hepatitis C without hepatic coma B18.2 [facility] [id number], [place] [address]- 2698 August, Chronic viral hepatitis C B18.2 [facility] [id number] [place] [address] 40498- 8433 August, [facility] [id number], [place] [address]- 0698 Jul, Chronic viral hepatitis C B18.2 and Hyperammonemia E72.20 [facility] [address] [place] [address] [address] [place] [address]- 9296 13 Jul, 2015 Chronic viral hepatitis C B18.2 [facility] [id number] [place] [address]- 9696 13 Jul, 2015 [facility] [id number] [place] [address] 2546 04 Jul, 2015 [facility] [id number] [place] [address], [place] [address] 2546 28 Jun, 2015 [facility] [id number] [place] [address] 2546 23 Jun, 2015 Chronic viral hepatitis C B18.2 and Hyperammonemia E72.20 [facility] [id number] [place] [address]- 3606 21 Jun, 2015 [facility] [id number] [place] [address]- 7956 18 Jun, 2015 [facility] [id number] [place] [address]- 4656 16 Jun, 2015 Chronic viral hepatitis C B18.2 [facility] [id number] [place] [address]- 1396 10 Jun, 2015 [facility] [id number] [place] [address]- 254 07 Jun, 2015 Chronic viral hepatitis C B18.2 [facility] [id number], [place] [address]- 2546 17 May, 2015 Hepatitis C, chronic B18.2 and Chronic viral hepatitis C B18.2 [facility] [id number] 4166 May, [facility] [id number] [address]- 6124 Apr, [facility] [id number] [place] [address]- 2546 Apr, Chronic viral hepatitis C B18.2 and Hyperammonemia E72.20 [facility] [id number] [place] [address] 18600- 3383 Apr, Chronic viral hepatitis C B18.2 [facility] [id number] [place] [address] 86405- 4172 Apr, Hyperammonemia E72.20 [facility] [address] 30645- 8669 Apr, [facility] [id number] [place] [address] 93146- 0793 Apr, [place] [address] 47177- 2248 Apr, Chronic hepatitis C without hepatic coma B18.2 ; Hyperammonemia E72.20 and Chronic viral hepatitis C B18.2 [place] [id number] [place] [address] 68003- 1222 Mar, Shortness of breath R06.02 [place] [id number] [place] [address] 83949- 9752 Mar, Mood disorder F39 and Major depressive disorder, recurrent episode, unspecified 296.30 [facility] [id number] [place] [address] 92013- 9937 Mar, [place] [id number] [place] [address] 14869- 4016 18 Mar, 2015 [facility] [id number] [place] [address] 81552- 8729 15 Mar, 2015 [facility] [id number] [place] [address] 52632 -3914 Mar, Seasonal allergies J30.2 ; Shortness of breath R06.02 and Cough R05 [facility] [id number] [place] [address] 44055- 4088 Mar, Hyperammonemia E72.20 ; Mood disorder F39 and History of alcohol abuse Z87.898 [facility] [id number] [place] [address] 41176- 2108 Mar, Hyperammonemia E72.20 [facility] [id number] [place] [address] 71309- 0046 Mar, [facility] [id number] [place] [address] 33739- 8226 Feb, [facility] [id number] [place] [address] 20333- 5384 Feb, [facility] [id number] [place] [address] 75298- 0160 Feb, Hyperammonemia E72.20 [facility] [id number] [place] [address] 67309- 7115 Feb, [facility] [id number] [place] [address] 78085- 7742 Feb, [facility] [id number] [place] [address] 38506- 8381 Feb, [facility] [id number] [place] [address] 16022- 2039 Feb, [facility] [id number] [place] [address] 51944- 1268 Feb, Chronic viral hepatitis C B18.2 [facility] [id number] [place] [address] 48104 2543 Feb, Chronic viral hepatitis C B18.2 [facility] [id number] [place] [address] 97377 2546 Feb, [facility] [id number] [place] [address] 34741 2540 Feb, Chronic viral hepatitis C B18.2 and Confusion R41.0 [facility] [id number] [place] [address] 30231- 4052 Feb, [facility] [address] [facility] [id number] [address]- 6911 Jan, [facility] [id number] [place] [address] 66528- 2229 Jan, Confusion R41.0 [facility] [id number] [place] [address] 04207- 7157 Jan, [facility] [id number] [place] [address] 12776- 1824 Jan, [facility] [id number] [place] [address] 32596- 5918 Jan, [facility] [id number] [place] [address] 15609- 6762 Jan, [facility] [id number] [place] [address] 11199- 5715 Jan, Chronic viral hepatitis C B18.2 and 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 [facility] [id number] [place] [address] 23356- 8557 Jan, [facility] [id number] [place] [address] 37585- 2695 Jan, [facility] [id number] [place] [address] 55248- 0022 Jan, [facility] [id number] [place] [address] 84004- 8435 Jan, [facility] [id number] [place] [address] 93835- 0293 Jan, Chronic viral hepatitis C B18.2 [facility] [id number] [place] [address] 68183- 1135 Jan, [facility] [id number], [place] [address]- 6768 14 Jan, 2015 Back pain at L4-L5 level M54.5 and Confusion R41.0 [facility] [id number] [place] [address] 91302- 3486 Jan, [place] [id number] [place] [address] 97093- 2014 30 Dec, 2014 Chronic viral hepatitis C B18.2 and Flu vaccine need V04.81 [place] [address] 45688- 7661 30 Dec, 2014 Chronic viral hepatitis C B18.2 [place] [id number] [place] [address] 07142- 2941 28 Dec, 2014 [place] [address] 42112- 7825 Dec, Polyuria 788.42 [place] [id number] [place] [address] 37416- 2798 Dec, Polyuria 788.42 ; Polydipsia 783.5 ; Dizziness 780.4 and Hepatitis C, chronic 070.54 [place] [id number] [place] [address] 47804- 5076 Dec, Major depressive disorder, recurrent episode, unspecified 296.30 and Generalized anxiety disorder 300.02 [place] [id number] [place] [address] 04191- 2382 Nov, [place] [id number] [place] [address] 09152- 0689 Nov, [place] [id number] [place] [address] 02862- 0034 Nov, [facility] [id number] [place] [address] 98129- 8814 Oct, [facility] [id number] [place] [address]84- 6530 Sep, [facility] [id number] [place] [address] 11694- 0698 August, Obsessive-compulsive disorders 300.3 ; Generalized anxiety disorder 300.02 and Major depressive disorder, recurrent episode, unspecified 296.30 [facility] [id number] [address] August, Chronic hepatitis C without mention of hepatic coma 070.54 ; Hypertension 401.9 and Seasonal allergies 477.9 [facility] [id number], [place] [address] Jul, [facility] [id number] [place] [address]- 2456 Jul, [facility] [id number], [place] [address] Jun, [facility] [id number] [place] [address] 20872- 2701 Jun, [facility] [id number], [place] [address] May, [facility] [id number], [place] [address] May, [facility] [id number] [address] May, [facility] [id number] [address] May, [facility] [id number], [place] [address] 1796 Apr, [facility] [id number] [address] 4[address] Apr, [facility] [id number] [address] Apr, [facility] [id number] [id number] [address] Apr, [facility] [id number] [place] [address] 1433 Apr, [facility] [address] [facility] [id number] [place] [address]- [address] Apr, [facility] [place] [facility] [address] [id number] [place] [address]- 7063 Mar, [facility] [place] [facility] [address] [id number] [place] [address]- 4712 Mar, [facility] [place] [facility] [address] [id number] [place] [address]- 2506 Mar, [facility] [place] [facility] [address] [id number] [place] [address]66 Mar, [facility] [place] [facility] [address] [id number] [place] [address]- 6723 Mar, [facility] [place] [facility] [address] [id number] [place] [address] Mar, [facility] [place] [facility] [address] [id number] [place] [address]- 6050 Mar, [facility] [place] [facility] [address] [id number] [place] [address]- 4614 Mar, [facility] [place] [facility] [address] [id number] [place] [address] Mar, [facility] [place] [facility] [address] [id number] [place] [address]- 9209 Feb, [facility] [place] [facility] [address] [id number] [place] [address]- 7434 Feb, [facility] [place] [facility] [address] [id number] [place] [address]- 9310 Feb, [facility] [place] [facility] [address] [id number] [place] [address]- 1545 Feb, [facility] [place] [facility] [address] [id number] [place] [address]- 0146 Feb, [facility] [place] [facility] [address] [id number] [place] [address]- 2545 Jan, [facility] [place] [facility] [address] [id number] [place] [address]- 8892 Jan, [facility] [place] [facility] [address] [id number] [place] [address]- 0561 Jan, [facility] [place] [facility] [address] [id number] [place] [address]- 9607 Jan, [facility] [place] [facility] [address] [id number] [place] [address] Jan, [facility] [place] [facility] [address] [id number] [place] [address] 79[address] Jan, [facility] [place] [facility] [address] [id number] [place] [address] Jan, [facility] [place] [facility] [address] [id number] [place] [address] Jan, [facility] [place] [facility] [address] [id number] [place] [address]70 Jan, [facility] [place] [facility] [address] [id number] [place] [address] Nov, [facility] [place] [facility] [address] [id number] [place] [address] 8351 Nov, [facility] [place] [facility] [address] [id number] [place] [address] 68[address] Nov, [facility] [place] [facility] [address] [id number] [place] [address] 1345 Oct, [facility] [place] [facility] [address] [id number] [place] [address] 45[address] Oct, [facility] [place] [facility] [address] [id number] [place] [address] 5734 Oct, [facility] [place] [facility] [address] [id number] [place] [address] 3425 Oct, [facility] [place] [facility] [address] [id number] [place] [address] 3507 Sep, [facility] [place] [facility] [address] [id number] [place] [address] 6459 Sep, [facility] [place] [facility] [address] [id number] [place] [address] 3949 Sep, [facility] [place] [facility] [address] [id number] [place] [address] 6162 Sep, [facility] [place] [facility] [address] [id number] [place] [address]- 5618 Sep, [facility] [place] [facility] [address] [id number] [place] [address] 2960 Sep, [facility] [place] [facility] [address] [id number] [place] [address] 0512 August, [facility] [place] [facility] [address] [id number] [place] [address] 5427 August, [facility] [place] [facility] [address] [id number] [place] [address]- 0014 Jul, [facility] [place] [facility] [address] [id number] [place] [address] 2062 Jul, [facility] [place] [facility] [address] [id number] [place] [address] 5856 Jul, [facility] [place] [facility] [address] [id number] [place] [address] 7904 Jul, [facility] [place] [facility] [address] [id number] [place] [address] 1295 Jul, [facility] [place] [facility] [address] [id number] [place] [address]- 3208 Jul, [facility] [place] [facility] [address] [id number] [place] [address]- 5655 Jul, [facility] [place] [facility] [address] [id number] [place] [address] 4387 Jul, [facility] [place] [facility] [address] [id number] [place] [address] 7047 Jul, [facility] [place] [facility] [address] [id number] [place] [address] Jul, [facility] [place] [facility] [address] [id number] [place] [address] Jun, [facility] [place] [facility] [address] [id number] [place] [address] 5650 Jun, [facility] [place] [facility] [address] [id number] [place] [address] 4050 Jun, [facility] [place] [facility] [address] [id number] [place] [address] 9343 Jun, [facility] [place] [facility] [address] [facility] [id number] [place] [address] 9041 May, [facility] [place] [facility] [address] [id number] [place] [address] 5547 May, [facility] [place] [facility] [address] [id number] [place] [address] 2233 May, [facility] [place] [facility] [address] [facility] [id number] [place] [address]- 9326 May, [facility] [place] [facility] [address] [facility] [id number] [place] [address]- 4027 May, [facility] [place] [facility] [address] [id number] [place] [address] 4132 May, [facility] [place] [facility] [address] [id number] [place] [address] Mar, [facility] [place] [facility] [address] [id number] [place] [address] Mar, [facility] [place] [facility] [address] [facility] [id number] [place] [address]- 6379 Mar, [facility] [place] [facility] [address] [id number], [place] [address] 16 Mar, 2013 [facility] [place] [facility] [address] [id number] [place] [address]- 5823 16 Mar, 2013 [facility] [place] [facility] [address] [id number], [place] [address] 77[address] 16 Mar, 2013 [facility] [place] [facility] [address] [facility] [id number] [place] [address] 5750 Feb, [facility] [place] [facility] [address] [id number], [place] [address] 6095 Feb, [facility] [place] [facility] [address] [facility] [id number] [place] [address] 4649 Feb, [facility] [place] [facility] [address] [id number], [place] [address] Feb, [facility] [address] [facility] [id number], [place] [address]- 6319 Feb, [facility] [place] [facility] [address] [id number], [place] [address]- 0[address] 12 Feb, 2013 [facility] [place] [facility] [address] [facility] [id number], [place] [address]- 2791 07 Feb, 2013 [facility] [place] [facility] [address] [facility] [id number], [place] [address]- [address]35 07 Feb, 2013 [facility] [place] [facility] [address] [facility] [id number], [place] [address] 2278 18 Jan, 2013 [facility] [place] [facility] [address] [id number], [place] [address] 8001 18 Jan, 2013 [facility] [place] [facility] [address] [id number], [place] [address] 8212 17 Jan, 2013 [facility] [place] [facility] [address] [facility] [id number], [place] [address] 7136 16 Jan, 2013 [facility] [place] [facility] [address] [facility] [id number], [place] [address]- 7383 16 Jan, 2013 [facility] [place] [facility] [address] [id number] [place] [address]- 1377 14 Jan, 2013 [facility] [place] [facility] [address] [id number] [place] [address]- 6689 14 Jan, 2013 [facility] [place] [facility] [address] [id number] [place] [address]- 7515 11 Jan, 2013 [facility] [place] [facility] [address] [id number] [place] [address]- 7376 11 Jan, 2013 [facility] [place] [facility] [address] [id number] [place] [address]- 0518 10 Jan, 2013 [facility] [place] [facility] [address] [id number] [place] [address]- 8731 27 Dec, 2012 [facility] [place] [facility] [address] [id number] [place] [address]- 5785 18 Dec, 2012 [facility] [place] [facility] [address] [id number] [place] [address]- 5396 18 Dec, 2012 [facility] [place] [facility] [address] [id number] [place] [address]- 2221 30 Nov, 2012 [facility] [place] [facility] [address] [id number] [place] [address]- 7087 29 Nov, 2012 [facility] [place] [facility] [address] [id number] [place] [address]- 1376 Nov, [facility] [place] [facility] [address] [id number] [place] [address]- 8535 Nov, [facility] [place] [facility] [address] [id number] [place] [address]- 0451 Nov, [facility] [place] [facility] [address] [id number] [place] [address]- 4945 Nov, [facility] [place] [facility] [address] [id number] [place] [address]- 0325 Nov, [facility] [place] [facility] [address] [id number] [place] [address]- 9078 Nov, [facility] [place] [facility] [address] [id number] [place] [address]- 1278 Nov, [facility] [place] [facility] [address] [id number] [place] [address]- 7968 Nov, [facility] [place] [facility] [address] [id number] [place] [address]- 3744 Oct, [facility] [place] [facility] [address] [id number] [place] [address]- 0897 Oct, [facility] [place] [facility] [address] [id number] [place] [address]- 0161 Oct, [facility] [place] [facility] [address] [id number] [place] [address]- 1198 Oct, [facility] [place] [facility] [address] [id number] [place] [address]- 0160 Oct, [facility] [place] [facility] [address] [id number] [place] [address]- 6044 Oct, [facility] [place] [facility] [address] [id number] [place] [address]- 1609 Oct, [facility] [place] [facility] [address] [id number] [place] [address]- 3548 Oct, [facility] [place] [facility] [address] [id number] [place] [address]- 5137 Sep, [facility] [place] [facility] [address] [id number] [place] [address]- 0851 Sep, [facility] [place] [facility] [address] [id number] [place] [address]- 6064 Sep, [facility] [place] [facility] [address] [id number] [place] [address]- 0953 Sep, [facility] [place] [facility] [address] [id number] [place] [address]- 8932 August, [facility] [place] [facility] [address] [id number] [place] [address]- 4016 August, [facility] [address] [id number] [place] [address]- 9648 August, [facility] [address] [id number] Jul, [facility] [address] [id number] Jul, [facility] [address] [id number] [place] [address]- 4423 Jun, [facility] [address] [id number] [place] [address]- 3944 May, [facility] [address] [id number] [place] [address]- 7776 May, [facility] [address] [id number] [place] [address]- 9035 Apr, [facility] [address] [id number] [place] [address]- 4009 Feb, [facility] [address] [id number] [place] [address]- 5880 Feb, [facility] [address] [facility] [id number] [place] [address]- 8150 Jan, [facility] [place] [facility] [address] [id number] [place] [address]- 0308 Jan, [facility] [place] [facility] [address] [id number], [place] [address]- 5740 Jan, [facility] [place] [facility] [address] [id number] [place] [address]- 6748 Jan, [facility] [place] [facility] [address] [id number] [place] [address]- 5568 Jan, [facility] [place] [facility] [address] [id number] [place] [address]- 4756 Dec, [facility] [place] [facility] [address] [id number] [place] [address]- 6105 Dec, [facility] [address] [id number] [place] [id number] Nov, [facility] [address] [id number] [place] [address]- 7510 Nov, [facility] [place] [facility] [address] [id number] [place] [address]- 2530 Nov, [facility] [place] [facility] [address] [id number] [place] [address]- 9329 Nov, [facility] [place] [facility] [address] [id number] [place] [address]- 2220 August, [facility] [place] [facility] [address] [id number] [place] [address]- 0855 August, [facility] [place] [facility] [address] [id number] [place] [address]- 4998 August, [facility] [place] [facility] [address] [id number] [place] [address]- 8373 Jul, [facility] [place] [facility] [address] [id number] [place] [address]- 9861 May, [facility] [place] [facility] [address] [id number] [place] [address]- 8989 May, [facility] [place] [facility] [address] [id number], [place] [address]- 7767 May, [facility] [place] [facility] [address] [id number], [place] [address]- 5199 Mar, [facility] [place] [facility] [address] [id number] [place] [address]- 9215 Jan, [facility] [place] [facility] [address] [id number] [place] [address]- 4314 Jan, [facility] [place] [facility] [address] [id number] [place] [address]- 6193 Oct, [facility] [place] [facility] [address] [facility] [id number] [place] [address]- 7424 August, [facility] [address] [facility] [id number], [place] [address]- 8583 Jan, [facility] [address] [facility] [id number][place] 3514 Jan, [facility] [address] [facility] [id number], [place] [address]- 2134 Jan, [facility] [address] [facility] [id number], [place] [address]- 8285 Jan, IMMUNIZATIONS No Known Immunizations SOCIAL HISTORY Never Assessed REASON FOR VISIT EMR-[facility] PLAN OF CARE VITAL SIGNS MEDICATIONS Unknown [...]
--- OUTSIDE RECORDS SUMMARY | 2018-08-15 15:23 | XMS REPORT ---
Author Author Migration, Doctor Organization [facility] Address Unknown Phone Unavailable Care Team Providers Care Integrity Specialist Name Role Phone Migration, Doctor Unavailable Unavailable PROBLEMS Type Condition ICD9-CM Code [id number] Code Onset Dates Condition Status SNOMED Code Problem Allergic rhinitis, unspecified allergic rhinitis type J30.9 Active 10459409 Problem Hyperammonemia E72.20 Active 1165859 Problem Obsessive compulsive disorder F42 Active 862272329 Problem Mood disorder F39 Active 06928258 Problem Seasonal allergic rhinitis due to other allergic trigger J30.89 Active 039042566 Problem Chronic hepatitis C without hepatic coma B18.2 Active 911588674 Problem Anxiety F41.9 Active 00923146 Problem History of alcohol abuse Z87.898 Active 453560383 Problem Hypertension, benign I10 Active 76935773 Problem Generalized anxiety disorder F41.1 Active 61385536 Problem Other chronic pain G89.29 Active 37047804 Problem Mild episode of recurrent major depressive disorder F33.0 Active 543906325 ALLERGIES No Information ENCOUNTERS Encounter Location Date Diagnosis [place] [id number] [place] [address] 52815- 4481 August, [place] [address] 47425- 6104 Jun, Anxiety F41.9 [place] [address] 87063- 9556 14 Jun, 2018 Mild episode of recurrent major depressive disorder F33.0 [place] [address] 13354- 8086 May, Mood disorder F39 ; Generalized anxiety disorder F41.1 ; Mild episode of recurrent major depressive disorder F33.0 and Anxiety F41.9 [place] [id number] [place] [address] 63904- 6122 Mar, Anxiety F41.9 and Seasonal allergic rhinitis due to other allergic trigger J30.89 [facility] [address] 14320- 1879 Feb, [place] [address] 02029- 5618 Feb, Generalized anxiety disorder F41.1 ; Eczema of both hands L30.9 and Encounter for immunization Z23 [place] [address] 25203- 0345 Feb, Chronic hepatitis C without hepatic coma B18.2 [place] [address] 19674- 1098 Jan, Mood disorder F39 [place] [address] 85868- 0761 Jan, Chronic hepatitis C without hepatic coma B18.2 [place] [address] 08010- 0148 Dec, Mild episode of recurrent major depressive disorder F33.0 ; Other chronic pain G89.29 ; Pain in left shoulder M25.512 and Pain in right shoulder M25.511 [place] [address] 86567- 7477 Dec, Chronic hepatitis C without hepatic coma B18.2 [place] [address] 43686- 4934 Nov, Chronic hepatitis C without hepatic coma B18.2 [place] [id number] [place] [address] 95968- 5936 Oct, Bronchitis J40 [place] [address] 06499- 9286 Oct, Chronic hepatitis C without hepatic coma B18.2 and Cough R05 [place] [address] 25294- 1511 Sep, Chronic hepatitis C without hepatic coma B18.2 [place] [address] [address] 6220 August, Chronic hepatitis C without hepatic coma B18.2 [facility] [id number] [place] [address] 55450- 6416 Jul, Chronic hepatitis C without hepatic coma B18.2 [facility] [address] [address] 2604 Jul, Generalized anxiety disorder F41.1 ; Mood disorder F39 and History of hepatitis C Z86.19 [facility] [address] [address]- 0487 Jul, Chronic hepatitis C without hepatic coma B18.2 [facility] [id number] [place] [address] 61724- 5832 Jun, Chronic hepatitis C without hepatic coma B18.2 [facility] [id number] [place] [address] 69047- 6405 Jun, [facility] [id number] [place] [address] 55157- 3264 May, Chronic hepatitis C without hepatic coma B18.2 [facility] [address] [address]- 0171 May, Hypertension, benign I10 [facility] [address] [address]- 9898 Apr, Chronic hepatitis C without hepatic coma B18.2 [facility] [address], [place] [address]- 6124 Apr, Hypertension, benign I10 [facility] [id number] [place] [address] 84280- 8987 Mar, Chronic hepatitis C without hepatic coma B18.2 [facility] [address] [address]- 4508 Mar, Hypertension, benign I10 [facility] [id number] [place] [address] 24330- 6052 Mar, Hypertension, benign I10 ; Encounter for immunization Z23 and Strain of right Achilles tendon, initial encounter S86.011A [facility] [id number] [place] [address] 14936- 3479 Feb, Chronic hepatitis C without hepatic coma B18.2 [facility] [id number] [place] [address] 41423- 9266 Jan, Chronic hepatitis C without hepatic coma B18.2 [facility] [id number] [place] [address] 44256 -3869 Jan, Toe pain, right M79.674 and Cellulitis of foot, right L03.115 [facility] [id number] [place] [address] 91219- 3258 Dec, Chronic hepatitis C without hepatic coma B18.2 [facility] [id number] [place] [address] 58343- 7238 Nov, Chronic hepatitis C without hepatic coma B18.2 and Eczema of both hands L30.9 [facility] [id number] [place] [address] 14686- 6509 Nov, [facility] [id number] [place] [address] 79754- 0368 Oct, [facility] [id number] [place] [address] 90732- 1257 Sep, [facility] [id number] [place] [address] 47686- 5313 August, [facility] [id number] [place] [address] 48298- 4886 August, [facility] [id number] [place] [address] 10577- 9652 Jul, [facility] [id number] [place] [address] 06193- 2288 Jul, [facility] [address], [place] [address]- 4976 Jun, [facility] [address], [place] [address]- 3380 Jun, [facility] [address], [place] [address]- 2830 May, [facility] [id number] [place] [address] 95831- 3429 Apr, Chronic hepatitis C without hepatic coma B18.2 ; Hyperglycemia R73.9 and Hypertension, benign I10 [facility] [id number] [place] [address] 70073- 9102 Apr, Chronic hepatitis C without hepatic coma B18.2 ; Mood disorder F39 ; Hypertension, benign I10 and Hyperglycemia R73.9 [facility] [address], [place] [address]- 9094 Apr, [facility] [address], [place] [address]- 3607 Apr, [facility] [address], [place] [address]- 1833 Apr, [facility] [address] [address]- 1320 Feb, [facility] [address], [place] [address]- 1701 Feb, [facility] [address], [place] [address]- 1191 Feb, [facility] [address], [place] [address]- 3156 Feb, [facility] [address], [place] [address]- 5541 Jan, [facility] [address], [place] [address]- 0011 Jan, Chronic hepatitis C without hepatic coma B18.2 ; Mood disorder F39 ; Encounter for immunization Z23 and Chronic viral hepatitis C B18.2 [facility] [id number] [place] [address] 04730- 4331 Jan, [facility] [id number] [place] [address] 70431- 1705 Jan, [facility] [id number] [place] [address] 87946- 6566 Dec, [facility] [id number] [place] [address] 51871- 9304 Dec, [facility] [id number] [place] [address] 51567- 7448 Nov, [facility] [id number] [place] [address] 79101- 7788 Nov, Weakness of both legs M62.81 [facility] [id number] [place] [address] 37617- 7280 Nov, [facility] [id number] [place] [address] 46345- 0314 Nov, [facility] [id number] [place] [address] 79625- 9259 Nov, [facility] [address], [place] [address]- 1503 Nov, Eczema, unspecified type L30.9 [facility] [id number] [place] [address] 33519- 6881 Nov, [facility] [id number] [place] [address] 94628- 7696 Nov, Eczema, unspecified type L30.9 ; Cessation of tobacco use in previous 12 months Z87.891 and Weakness of both legs M62.81 [facility] [address], [place] [address]- 8530 Oct, [facility] [id number] [address]- 1697 Oct, [facility] [address], [place] [address]- 4563 Oct, [facility] [address], [place] [address]- 2776 Oct, Chronic viral hepatitis C B18.2 [facility] [id number] [place] [address] 20929- 4080 Sep, [facility] [id number] [place] [address] 73544- 8012 Sep, 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 and Generalized anxiety disorder F41.1 [facility] [id number] [place] [address] 54552- 8853 Sep, [facility] [id number] [place] [address] 04872- 6649 August, [facility] [id number] [place] [address] 73139- 3021 August, Hyperammonemia E72.20 [facility] [id number] [place] [address] 66454- 0940 August, Hyperammonemia E72.20 [facility] [address] [address]- 4433 August, Hyperammonemia E72.20 and Chronic hepatitis C without hepatic coma B18.2 [facility] [address], [place] [address]- 7906 August, Chronic viral hepatitis C B18.2 [facility] [id number] [place] [address] 06246- 6100 August, [facility] [address], [place] [address]- 8339 Jul, Chronic viral hepatitis C B18.2 and Hyperammonemia E72.20 [facility] [address] [address]- 9576 13 Jul, 2015 Chronic viral hepatitis C B18.2 [facility] [id number] [place] [address]- 6416 13 Jul, 2015 [facility] [id number] [place] [address] 2546 04 Jul, 2015 [facility] [id number] [place] [address], [place] [address] 2546 28 Jun, 2015 [facility] [id number] [place] [address] 2546 23 Jun, 2015 Chronic viral hepatitis C B18.2 and Hyperammonemia E72.20 [facility] [address] [place] [address]- 0046 21 Jun, 2015 [facility] [id number] [place] [address]- 5616 18 Jun, 2015 [facility] [id number] [place] [address]- 6796 16 Jun, 2015 Chronic viral hepatitis C B18.2 [facility] [id number] [place] [address]- 8746 10 Jun, 2015 [facility] [address] [place] [address]- 2547 07 Jun, 2015 Chronic viral hepatitis C B18.2 [facility] [address], [place] [address]- 2546 17 May, 2015 Hepatitis C, chronic B18.2 and Chronic viral hepatitis C B18.2 [facility] [address] [place]- 7726 May, [facility] [address] [address]- 9593 Apr, [facility] [address] [place] [address]- 2546 Apr, Chronic viral hepatitis C B18.2 and Hyperammonemia E72.20 [facility] [id number] [place] [address] 05861- 1272 Apr, Chronic viral hepatitis C B18.2 [facility] [id number] [place] [address] 66840- 8634 Apr, Hyperammonemia E72.20 [facility] [address] 36033- 6352 Apr, [facility] [id number] [place] [address] 84510- 1447 Apr, [place] [address] 17424- 3040 Apr, Chronic hepatitis C without hepatic coma B18.2 ; Hyperammonemia E72.20 and Chronic viral hepatitis C B18.2 [place] [id number] [place] [address] 25951- 0933 Mar, Shortness of breath R06.02 [place] [id number] [place] [address] 68535- 0540 Mar, Mood disorder F39 and Major depressive disorder, recurrent episode, unspecified 296.30 [facility] [id number] [place] [address] 58041- 7783 Mar, [place] [id number] [place] [address] 32411- 0221 18 Mar, 2015 [facility] [id number] [place] [address] 76106- 2430 15 Mar, 2015 [facility] [id number] [place] [address] 92975 -3913 Mar, Seasonal allergies J30.2 ; Shortness of breath R06.02 and Cough R05 [facility] [id number] [place] [address] 70127- 5124 Mar, Hyperammonemia E72.20 ; Mood disorder F39 and History of alcohol abuse Z87.898 [facility] [id number] [place] [address] 54865- 4411 Mar, Hyperammonemia E72.20 [facility] [id number] [place] [address] 91861- 5236 Mar, [facility] [id number] [place] [address] 64959- 4356 Feb, [facility] [id number] [place] [address] 96879- 7542 Feb, [facility] [id number] [place] [address] 28429- 8555 Feb, Hyperammonemia E72.20 [facility] [id number] [place] [address] 57289- 5916 Feb, [facility] [id number] [place] [address] 51770- 6306 Feb, [facility] [id number] [place] [address] 44833- 5701 Feb, [facility] [id number] [place] [address] 01714- 7477 Feb, [facility] [id number] [place] [address] 51696- 2575 Feb, Chronic viral hepatitis C B18.2 [facility] [id number] [place] [address] 45923 2545 Feb, Chronic viral hepatitis C B18.2 [facility] [id number] [place] [address] 30684 2546 Feb, [facility] [id number] [place] [address] 92215 254 Feb, Chronic viral hepatitis C B18.2 and Confusion R41.0 [facility] [id number] [place] [address] 60559- 2588 Feb, [facility] [address] [facility] [id number] [address]- 8422 Jan, [facility] [id number] [place] [address] 04948- 4854 Jan, Confusion R41.0 [facility] [id number] [place] [address] 58980- 7171 Jan, [facility] [id number] [place] [address] 82526- 9046 Jan, [facility] [id number] [place] [address] 66876- 0010 Jan, [facility] [id number] [place] [address] 72509- 4331 Jan, [facility] [id number] [place] [address] 61904- 5001 Jan, Chronic viral hepatitis C B18.2 and 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 [facility] [id number] [place] [address] 67919- 2011 Jan, [facility] [id number] [place] [address] 72742- 2884 Jan, [facility] [id number] [place] [address] 28748- 0133 Jan, [facility] [id number] [place] [address] 50162- 6226 Jan, [facility] [id number] [place] [address] 77380- 4639 Jan, Chronic viral hepatitis C B18.2 [facility] [id number] [place] [address] 09684- 5543 Jan, [facility] [address], [place] [address]- 2292 14 Jan, 2015 Back pain at L4-L5 level M54.5 and Confusion R41.0 [facility] [id number] [place] [address] 00180- 3109 Jan, [place] [id number] [place] [address] 50065- 0786 30 Dec, 2014 Chronic viral hepatitis C B18.2 and Flu vaccine need V04.81 [place] [address] 31589- 7483 30 Dec, 2014 Chronic viral hepatitis C B18.2 [place] [id number] [place] [address] 74081- 7598 28 Dec, 2014 [place] [address] 95530- 3334 Dec, Polyuria 788.42 [place] [id number] [place] [address] 44543- 4073 Dec, Polyuria 788.42 ; Polydipsia 783.5 ; Dizziness 780.4 and Hepatitis C, chronic 070.54 [place] [id number] [place] [address] 85142- 8388 Dec, Major depressive disorder, recurrent episode, unspecified 296.30 and Generalized anxiety disorder 300.02 [place] [id number] [place] [address] 66420- 4142 Nov, [place] [id number] [place] [address] 51049- 7373 Nov, [place] [id number] [place] [address] 61359- 7189 Nov, [facility] [id number] [place] [address] 94843- 6006 Oct, [facility] [id number] [place] [address] 32562- 7332 Sep, [facility] [id number] [place] [address] 53978- 6831 August, Obsessive-compulsive disorders 300.3 ; Generalized anxiety disorder 300.02 and Major depressive disorder, recurrent episode, unspecified 296.30 [facility] [address] [address]- 1933 August, Chronic hepatitis C without mention of hepatic coma 070.54 ; Hypertension 401.9 and Seasonal allergies 477.9 [facility] [address], [place] [address] Jul, [facility] [id number] [place] [address] Jul, [facility] [id number] [address] Jun, [facility] [id number] [place] [address] Jun, [facility] [id number] [address] May, [facility] [id number] [address] May, [facility] [id number] [address] May, [facility] [id number] [address] May, [facility] [id number] [address] Apr, [facility] [id number] [address] Apr, [facility] [id number] [address] Apr, [facility] [id number] [address] Apr, [facility] [id number] [address] Apr, [facility] [address] [facility] [id number] [place] [address] Apr, [facility] [place] [facility] [address] [id number] [place] [address] Mar, [facility] [place] [facility] [address] [id number] [place] [address] Mar, [facility] [place] [facility] [address] [id number] [place] [address] Mar, [facility] [place] [facility] [address] [id number] [place] [address] Mar, [facility] [place] [facility] [address] [id number] [place] [address] Mar, [facility] [place] [facility] [address] [id number] [place] [address] Mar, [facility] [place] [facility] [address] [id number] [place] [address] Mar, [facility] [place] [facility] [address] [id number] [place] [address] Mar, [facility] [place] [facility] [address] [id number] [place] [address] Mar, [facility] [place] [facility] [address] [id number] [place] [address] Feb, [facility] [place] [facility] [address] [id number] [place] [address] Feb, [facility] [place] [facility] [address] [id number] [place] [address] Feb, [facility] [place] [facility] [address] [id number] [place] [address]- 2094 Feb, [facility] [place] [facility] [address] [id number] [place] [address] Feb, [facility] [place] [facility] [address] [id number] [place] [address] Jan, [facility] [place] [facility] [address] [id number] [place] [address] 70[address] Jan, [facility] [place] [facility] [address] [id number] [place] [address] 66[address] Jan, [facility] [place] [facility] [address] [id number] [place] [address] 9168 Jan, [facility] [place] [facility] [address] [id number] [place] [address] 55[address] Jan, [facility] [place] [facility] [address] [id number] [place] [address]- 6839 Jan, [facility] [place] [facility] [address] [id number] [place] [address]- 365[address] Jan, [facility] [place] [facility] [address] [id number] [place] [address]- 8986 Jan, [facility] [place] [facility] [address] [id number] [place] [address] 9124 Jan, [facility] [place] [facility] [address] [id number] [place] [address]- 17[address] Nov, [facility] [place] [facility] [address] [id number] [place] [address]- 6953 Nov, [facility] [place] [facility] [address] [id number] [place] [address]- 0432 Nov, [facility] [place] [facility] [address] [id number] [place] [address]- 7246 Oct, [facility] [place] [facility] [address] [id number] [place] [address]- [address]1 Oct, [facility] [place] [facility] [address] [id number] [place] [address]- 7738 Oct, [facility] [place] [facility] [address] [id number] [place] [address]- 4062 Oct, [facility] [place] [facility] [address] [id number] [place] [address]- 9169 Sep, [facility] [place] [facility] [address] [id number] [place] [address]- 6046 Sep, [facility] [place] [facility] [address] [id number] [place] [address]- 4495 Sep, [facility] [place] [facility] [address] [id number] [place] [address]- 9587 Sep, [facility] [place] [facility] [address] [id number] [place] [address]- 7749 Sep, [facility] [place] [facility] [address] [id number] [place] [address]- [address] Sep, [facility] [place] [facility] [address] [id number] [place] [address]- 9979 August, [facility] [place] [facility] [address] [id number] [place] [address]- 0785 August, [facility] [place] [facility] [address] [id number] [place] [address]- 0445 Jul, [facility] [place] [facility] [address] [id number] [place] [address]- 8994 Jul, [facility] [place] [facility] [address] [id number] [place] [address]- 4592 Jul, [facility] [place] [facility] [address] [id number] [place] [address]- 6308 Jul, [facility] [place] [facility] [address] [id number] [place] [address]- 2955 Jul, [facility] [place] [facility] [address] [id number] [place] [address]- 7583 Jul, [facility] [place] [facility] [address] [id number] [place] [address]- 0560 Jul, [facility] [place] [facility] [address] [id number] [place] [address]- 8031 Jul, [facility] [place] [facility] [address] [id number] [place] [address]- 3041 Jul, [facility] [place] [facility] [address] [id number] [place] [address] Jul, [facility] [place] [facility] [address] [id number] [place] [address] Jun, [facility] [place] [facility] [address] [id number] [place] [address]- 8372 Jun, [facility] [place] [facility] [address] [id number] [place] [address]- 8502 Jun, [facility] [place] [facility] [address] [id number] [place] [address]- 2876 Jun, [facility] [place] [facility] [address] [facility] [id number] [place] [address]- 2023 May, [facility] [place] [facility] [address] [id number] [place] [address]- 8886 May, [facility] [place] [facility] [address] [id number] [place] [address]- 4045 May, [facility] [place] [facility] [address] [facility] [id number] [place] [address]- 4930 May, [facility] [place] [facility] [address] [facility] [id number] [place] [address]- 3257 May, [facility] [place] [facility] [address] [id number] [place] [address]- 7087 May, [facility] [place] [facility] [address] [id number] [place] [address] Mar, [facility] [place] [facility] [address] [id number] [place] [address] Mar, [facility] [place] [facility] [address] [facility] [id number] [place] [address]- 6516 Mar, [facility] [place] [facility] [address] [id number], [place] [address] 16 Mar, 2013 [facility] [place] [facility] [address] [id number] [place] [address]- 2377 16 Mar, 2013 [facility] [place] [facility] [address] [id number], [place] [address] 6409 16 Mar, 2013 [facility] [place] [facility] [address] [facility] [id number] [place] [address]- 6860 Feb, [facility] [place] [facility] [address] [id number], [place] [address] 8947 Feb, [facility] [place] [facility] [address] [facility] [id number] [place] [address]- 6826 Feb, [facility] [place] [facility] [address] [id number], [place] [address] 7107 Feb, [facility] [address] [facility] [id number], [place] [address] 5111 Feb, [facility] [place] [facility] [address] [id number], [place] [address]- 1710 12 Feb, 2013 [facility] [place] [facility] [address] [facility] [id number], [place] [address] 07 Feb, 2013 [facility] [place] [facility] [address] [facility] [id number], [place] [address]- 0970 07 Feb, 2013 [facility] [place] [facility] [address] [facility] [id number], [place] [address] 7637 18 Jan, 2013 [facility] [place] [facility] [address] [id number], [place] [address]- 2553 18 Jan, 2013 [facility] [place] [facility] [address] [id number], [place] [address]- 4397 17 Jan, 2013 [facility] [place] [facility] [address] [facility] [id number], [place] [address]- 1467 16 Jan, 2013 [facility] [place] [facility] [address] [facility] [id number], [place] [address]- 1111 16 Jan, 2013 [facility] [place] [facility] [address] [id number] [place] [address]- 4703 14 Jan, 2013 [facility] [place] [facility] [address] [id number] [place] [address]- 9099 14 Jan, 2013 [facility] [place] [facility] [address] [id number] [place] [address]- 4099 11 Jan, 2013 [facility] [place] [facility] [address] [id number] [place] [address]- 0489 11 Jan, 2013 [facility] [place] [facility] [address] [id number] [place] [address]- 7581 10 Jan, 2013 [facility] [place] [facility] [address] [id number] [place] [address]- 6339 27 Dec, 2012 [facility] [place] [facility] [address] [id number] [place] [address]- 7346 18 Dec, 2012 [facility] [place] [facility] [address] [id number] [place] [address]- 9296 18 Dec, 2012 [facility] [place] [facility] [address] [id number] [place] [address]- 8249 30 Nov, 2012 [facility] [place] [facility] [address] [id number] [place] [address]- 0256 29 Nov, 2012 [facility] [place] [facility] [address] [id number] [place] [address]- 8144 Nov, [facility] [place] [facility] [address] [id number] [place] [address]- 4573 Nov, [facility] [place] [facility] [address] [id number] [place] [address]- 6856 Nov, [facility] [place] [facility] [address] [id number] [place] [address]- 5689 Nov, [facility] [place] [facility] [address] [id number] [place] [address]- 5564 Nov, [facility] [place] [facility] [address] [id number] [place] [address]- 7901 Nov, [facility] [place] [facility] [address] [id number] [place] [address]- 6412 Nov, [facility] [place] [facility] [address] [id number] [place] [address]- 7599 Nov, [facility] [place] [facility] [address] [id number] [place] [address]- 2894 Oct, [facility] [place] [facility] [address] [id number] [place] [address]- 7242 Oct, [facility] [place] [facility] [address] [id number] [place] [address]- 6414 Oct, [facility] [place] [facility] [address] [id number] [place] [address]- 0484 Oct, [facility] [place] [facility] [address] [id number] [place] [address]- 3338 Oct, [facility] [place] [facility] [address] [id number] [place] [address]- 3599 Oct, [facility] [place] [facility] [address] [id number] [place] [address]- 9487 Oct, [facility] [place] [facility] [address] [id number] [place] [address]- 5089 Oct, [facility] [place] [facility] [address] [id number] [place] [address]- 8776 Sep, [facility] [place] [facility] [address] [id number] [place] [address]- 6579 Sep, [facility] [place] [facility] [address] [id number] [place] [address]- 7761 Sep, [facility] [place] [facility] [address] [id number] [place] [address]- 8293 Sep, [facility] [place] [facility] [address] [id number] [place] [address]- 6734 August, [facility] [place] [facility] [address] [id number] [place] [address]- 2284 August, [facility] [address] [id number] [place] [address]- 4301 August, [facility] [address] [id number] Jul, [facility] [address] [id number] Jul, [facility] [address] [id number] [place] [address]- 4146 Jun, [facility] [address] [id number] [place] [address]- 6818 May, [facility] [address] [id number] [place] [address]- 3636 May, [facility] [address] [id number] [place] [address]- 4124 Apr, [facility] [address] [id number] [place] [address]- 2335 Feb, [facility] [address] [id number] [place] [address]- 6024 Feb, [facility] [address] [facility] [id number] [place] [address]- 6264 Jan, [facility] [place] [facility] [address] [id number] [place] [address]- 4469 Jan, [facility] [place] [facility] [address] [id number], [place] [address]- 1145 Jan, [facility] [place] [facility] [address] [id number] [place] [address]- 8868 Jan, [facility] [place] [facility] [address] [id number] [place] [address]- 7350 Jan, [facility] [place] [facility] [address] [id number] [place] [address]- 7416 Dec, [facility] [place] [facility] [address] [id number] [place] [address]- 6814 Dec, [facility] [address] [id number] [place] [id number] Nov, [facility] [address] [id number] [place] [address]- 3325 Nov, [facility] [place] [facility] [address] [id number] [place] [address]- 0249 Nov, [facility] [place] [facility] [address] [id number] [place] [address]- 9726 Nov, [facility] [place] [facility] [address] [id number] [place] [address]- 8262 August, [facility] [place] [facility] [address] [id number] [place] [address]- 2303 August, [facility] [place] [facility] [address] [id number] [place] [address]- 9253 August, [facility] [place] [facility] [address] [id number] [place] [address]- 8808 Jul, [facility] [place] [facility] [address] [id number] [place] [address]- 9543 May, [facility] [place] [facility] [address] [id number] [place] [address]- 0550 May, [facility] [place] [facility] [address] [id number], [place] [address]- 9488 May, [facility] [place] [facility] [address] [id number], [place] [address]- 9147 Mar, [facility] [place] [facility] [address] [id number] [place] [address]- 8676 Jan, [facility] [place] [facility] [address] [id number] [place] [address]- 2150 Jan, [facility] [place] [facility] [address] [id number] [place] [address]- 7424 Oct, [facility] [place] [facility] [address] [facility] [id number] [place] [address]- 9965 August, [facility] [address] [facility] [id number], [place] [address]- 8740 Jan, [facility] [address] [facility] [id number] [address]205 Jan, [facility] [address] [facility] [id number], [place] [address]- 0559 Jan, [facility] [address] [facility] [id number], [place] [address]- 7771 Jan, IMMUNIZATIONS No Known Immunizations SOCIAL HISTORY Never Assessed REASON FOR VISIT EMR-[facility] PLAN OF CARE VITAL SIGNS [...]
--- OUTSIDE RECORDS SUMMARY | 2018-08-15 15:23 | XMS REPORT ---
Author Author Migration, Doctor Organization [facility] Address Unknown Phone Unavailable Care Team Providers Care Unit Secy Name Role Phone Migration, Doctor Unavailable Unavailable PROBLEMS Type Condition ICD9-CM Code GKB99-NA Code Onset Dates Condition Status SNOMED Code Problem Allergic rhinitis, unspecified allergic rhinitis type J30.9 Active 08815025 Problem Hyperammonemia E72.20 Active 2368238 Problem Obsessive compulsive disorder F42 Active 662596158 Problem Mood disorder F39 Active 46669128 Problem Seasonal allergic rhinitis due to other allergic trigger J30.89 Active 130084096 Problem Chronic hepatitis C without hepatic coma B18.2 Active 493672394 Problem Anxiety F41.9 Active 13996423 Problem History of alcohol abuse Z87.898 Active 905459084 Problem Hypertension, benign I10 Active 11109298 Problem Generalized anxiety disorder F41.1 Active 97124099 Problem Other chronic pain G89.29 Active 61289414 Problem Mild episode of recurrent major depressive disorder F33.0 Active 029069471 ALLERGIES No Information ENCOUNTERS Encounter Location Date Diagnosis [facility] [id number] [place] [address] 34343- 6902 August, [place] [address] 51763- 3493 Jun, Anxiety F41.9 [place] [address] 65896- 0671 14 Jun, 2018 Mild episode of recurrent major depressive disorder F33.0 [place] [address] 52774- 1665 May, Mood disorder F39 ; Generalized anxiety disorder F41.1 ; Mild episode of recurrent major depressive disorder F33.0 and Anxiety F41.9 [place] [id number] [place] [address] 51198- 8103 Mar, Anxiety F41.9 and Seasonal allergic rhinitis due to other allergic trigger J30.89 [facility] [address] 03319- 6791 Feb, [place] [address] 15640- 1690 Feb, Generalized anxiety disorder F41.1 ; Eczema of both hands L30.9 and Encounter for immunization Z23 [place] [address] 09778- 4335 Feb, Chronic hepatitis C without hepatic coma B18.2 [place] [address] 30301- 9044 Jan, Mood disorder F39 [place] [address] 54766- 6249 Jan, Chronic hepatitis C without hepatic coma B18.2 [place] [address] 37929- 5178 Dec, Mild episode of recurrent major depressive disorder F33.0 ; Other chronic pain G89.29 ; Pain in left shoulder M25.512 and Pain in right shoulder M25.511 [place] [address] 01066- 5412 Dec, Chronic hepatitis C without hepatic coma B18.2 [place] [address] 46562- 0889 Nov, Chronic hepatitis C without hepatic coma B18.2 [place] [id number] [place] [address] 87711- 1283 Oct, Bronchitis J40 [place] [address] 77469- 2784 Oct, Chronic hepatitis C without hepatic coma B18.2 and Cough R05 [place] [address] 87924- 4894 Sep, Chronic hepatitis C without hepatic coma B18.2 [place] [address] [address] 4248 August, Chronic hepatitis C without hepatic coma B18.2 [facility] [id number] [place] [address] 77026- 6406 Jul, Chronic hepatitis C without hepatic coma B18.2 [facility] [address] [address]- 8726 Jul, Generalized anxiety disorder F41.1 ; Mood disorder F39 and History of hepatitis C Z86.19 [facility] [address] [address] 1206 Jul, Chronic hepatitis C without hepatic coma B18.2 [facility] [id number] [place] [address] 99806- 9030 Jun, Chronic hepatitis C without hepatic coma B18.2 [facility] [id number] [place] [address] 29206- 9096 Jun, [facility] [address] [place] [address] 92829- 5415 May, Chronic hepatitis C without hepatic coma B18.2 [facility] [address] [address]- 3049 May, Hypertension, benign I10 [facility] [address] [address]- 8271 Apr, Chronic hepatitis C without hepatic coma B18.2 [facility] [address] [address]- 4176 Apr, Hypertension, benign I10 [facility] [id number] [place] [address] 54977- 8910 Mar, Chronic hepatitis C without hepatic coma B18.2 [facility] [address] [address]- 7261 Mar, Hypertension, benign I10 [facility] [id number] [place] [address] 51992- 6101 Mar, Hypertension, benign I10 ; Encounter for immunization Z23 and Strain of right Achilles tendon, initial encounter S86.011A [facility] [id number] [place] [address] 11929- 8536 Feb, Chronic hepatitis C without hepatic coma B18.2 [facility] [id number] [place] [address] 26387- 2981 Jan, Chronic hepatitis C without hepatic coma B18.2 [facility] [id number] [place] [address] 88908 -9164 Jan, Toe pain, right M79.674 and Cellulitis of foot, right L03.115 [facility] [id number] [place] [address] 16887- 0708 Dec, Chronic hepatitis C without hepatic coma B18.2 [facility] [id number] [place] [address] 69860- 1315 Nov, Chronic hepatitis C without hepatic coma B18.2 and Eczema of both hands L30.9 [facility] [id number] [place] [address] 21371- 6684 Nov, [facility] [id number] [place] [address] 69087- 0863 Oct, [facility] [id number] [place] [address] 15675- 8794 Sep, [facility] [id number] [place] [address] 64310- 6904 August, [facility] [id number] [place] [address] 44495- 2546 August, [facility] [id number] [place] [address] 51179- 2324 Jul, [facility] [id number] [place] [address] 69359- 0632 Jul, [facility] [address] [address]- 1951 Jun, [facility] [address] [address]- 2388 Jun, [facility] [address] [address]- 9106 May, [facility] [id number] [place] [address] 24297- 8120 Apr, Chronic hepatitis C without hepatic coma B18.2 ; Hyperglycemia R73.9 and Hypertension, benign I10 [facility] [id number] [place] [address] 15194- 3264 Apr, Chronic hepatitis C without hepatic coma B18.2 ; Mood disorder F39 ; Hypertension, benign I10 and Hyperglycemia R73.9 [facility] [address] [address]- 1470 Apr, [facility] [address] [address]- 6375 Apr, [facility] [address] [address]- 9861 Apr, [facility] [address] [address]- 3995 Feb, [facility] [address] [address]- 5859 Feb, [facility] [address] [address]- 7857 Feb, [facility] [address] [address]- 6716 Feb, [facility] [address] [address]- 2628 Jan, [facility] [address] [address]- 2723 Jan, Chronic hepatitis C without hepatic coma B18.2 ; Mood disorder F39 ; Encounter for immunization Z23 and Chronic viral hepatitis C B18.2 [facility] [id number] [place] [address] 16495- 9163 Jan, [facility] [id number] [place] [address] 76980- 3457 Jan, [facility] [id number] [place] [address] 82076- 6779 Dec, [facility] [id number] [place] [address] 26561- 0497 Dec, [facility] [id number] [place] [address] 37847- 7736 Nov, [facility] [id number] [place] [address] 27275- 9479 Nov, Weakness of both legs M62.81 [facility] [id number] [place] [address] 59917- 0752 Nov, [facility] [id number] [place] [address] 66205- 1778 Nov, [facility] [id number] [place] [address] 06763- 8345 Nov, [facility] [address] [address]- 7481 Nov, Eczema, unspecified type L30.9 [facility] [id number] [place] [address] 03334- 2180 Nov, [facility] [address] [place] [address] 45487- 9357 Nov, Eczema, unspecified type L30.9 ; Cessation of tobacco use in previous 12 months Z87.891 and Weakness of both legs M62.81 [facility] [address] [address]- 0313 Oct, [facility] [address] [address]- 3067 Oct, [facility] [address] [address]- 9634 Oct, [facility] [address] [address]- 5147 Oct, Chronic viral hepatitis C B18.2 [facility] [id number] [place] [address] 51836- 5580 Sep, [facility] [id number] [place] [address] 71917- 8854 Sep, 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 and Generalized anxiety disorder F41.1 [facility] [id number] [place] [address] 72200- 6216 Sep, [facility] [id number] [place] [address] 25474- 5171 August, [facility] [id number] [place] [address] 85076- 9429 August, Hyperammonemia E72.20 [facility] [id number] [place] [address] 23658- 4064 August, Hyperammonemia E72.20 [facility] [address] [address]- 1081 August, Hyperammonemia E72.20 and Chronic hepatitis C without hepatic coma B18.2 [facility] [address] [address]- 0949 August, Chronic viral hepatitis C B18.2 [facility] [id number] [place] [address] 46413- 4974 August, [facility] [address] [address]- 0726 Jul, Chronic viral hepatitis C B18.2 and Hyperammonemia E72.20 [facility] [address] [place] [address]- 6166 13 Jul, 2015 Chronic viral hepatitis C B18.2 [facility] [address] [place] [address]- 0456 13 Jul, 2015 [facility] [address] [place] [address] 2546 04 Jul, 2015 [facility] [id number] [place] [address], [place] [address] 2546 28 Jun, 2015 [facility] [address] [place] [address] 2546 23 Jun, 2015 Chronic viral hepatitis C B18.2 and Hyperammonemia E72.20 [facility] [address] [place] [address]- 3886 21 Jun, 2015 [facility] [address] [place] [address]- 1636 18 Jun, 2015 [facility] [address] [place] [address]- 4800 16 Jun, 2015 Chronic viral hepatitis C B18.2 [facility] [address] [place] [address]- 0026 10 Jun, 2015 [facility] [address] [place] [address]- 254 07 Jun, 2015 Chronic viral hepatitis C B18.2 [facility] [address] [address]- 2546 17 May, 2015 Hepatitis C, chronic B18.2 and Chronic viral hepatitis C B18.2 [facility] [address] 4176 May, [facility] [address] [address] 8265 Apr, [facility] [address] [place] [address]- 2546 Apr, Chronic viral hepatitis C B18.2 and Hyperammonemia E72.20 [facility] [id number] [place] [address] 70967- 8768 Apr, Chronic viral hepatitis C B18.2 [facility] [id number] [place] [address] 50819- 1347 Apr, Hyperammonemia E72.20 [facility] [address] 96225- 0961 Apr, [facility] [id number] [place] [address] 09691- 1828 Apr, [place] [address] 12057- 7961 Apr, Chronic hepatitis C without hepatic coma B18.2 ; Hyperammonemia E72.20 and Chronic viral hepatitis C B18.2 [place] [id number] [place] [address] 63750- 6224 Mar, Shortness of breath R06.02 [facility] [address] [place] [address] 97131- 0912 Mar, Mood disorder F39 and Major depressive disorder, recurrent episode, unspecified 296.30 [facility] [address] [place] [address] 94642- 6788 Mar, [place] [id number] [place] [address] 28540- 4122 18 Mar, 2015 [facility] [id number] [place] [address] 70493- 3281 15 Mar, 2015 [facility] [address] [place] [address] 95843 -5657 Mar, Seasonal allergies J30.2 ; Shortness of breath R06.02 and Cough R05 [facility] [address] [place] [address] 36915- 6303 Mar, Hyperammonemia E72.20 ; Mood disorder F39 and History of alcohol abuse Z87.898 [facility] [address] [place] [address] 83291- 7056 Mar, Hyperammonemia E72.20 [facility] [id number] [place] [address] 13697- 2906 Mar, [facility] [id number] [place] [address] 41364- 9166 Feb, [facility] [id number] [place] [address] 03494- 2917 Feb, [facility] [id number] [place] [address] 86535- 2511 Feb, Hyperammonemia E72.20 [facility] [id number] [place] [address] 00259- 9338 Feb, [facility] [id number] [place] [address] 06618- 8450 Feb, [facility] [id number] [place] [address] 00741- 2470 Feb, [facility] [address] [place] [address] 50012- 4396 Feb, [facility] [id number] [place] [address] 42982- 5983 Feb, Chronic viral hepatitis C B18.2 [facility] [id number] [place] [address] 56622 2549 Feb, Chronic viral hepatitis C B18.2 [facility] [id number] [place] [address] 89983 2546 Feb, [facility] [id number] [place] [address] 41635 2548 Feb, Chronic viral hepatitis C B18.2 and Confusion R41.0 [facility] [id number] [place] [address] 92365- 4564 Feb, [facility] [address] [facility] [id number] [address]- 8337 Jan, [facility] [address] [place] [address] 46376- 5465 Jan, Confusion R41.0 [facility] [id number] [place] [address] 97729- 5323 Jan, [facility] [address] [place] [address] 67796- 7836 Jan, [facility] [id number] [place] [address] 16947- 3800 Jan, [facility] [id number] [place] [address] 12582- 0044 Jan, [facility] [id number] [place] [address] 33415- 4412 Jan, Chronic viral hepatitis C B18.2 and 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 [facility] [address] [place] [address] 32902- 8327 Jan, [facility] [id number] [place] [address] 94480- 1038 Jan, [facility] [address] [place] [address] 85287- 4997 Jan, [facility] [address] [place] [address] 17814- 4542 Jan, [facility] [address] [place] [address] 91584- 2144 Jan, Chronic viral hepatitis C B18.2 [facility] [id number] [place] [address] 59426- 5653 Jan, [facility] [address] [address]- 8547 14 Jan, 2015 Back pain at L4-L5 level M54.5 and Confusion R41.0 [facility] [address] [place] [address] 69277- 2868 Jan, [place] [id number] [place] [address] 50839- 7876 30 Dec, 2014 Chronic viral hepatitis C B18.2 and Flu vaccine need V04.81 [place] [address] 24308- 9817 30 Dec, 2014 Chronic viral hepatitis C B18.2 [place] [address] [place] [address] 08118- 2397 28 Dec, 2014 [place] [address] 93556- 4603 Dec, Polyuria 788.42 [place] [address] [place] [address] 10983- 8290 Dec, Polyuria 788.42 ; Polydipsia 783.5 ; Dizziness 780.4 and Hepatitis C, chronic 070.54 [place] [address] [place] [address] 87409- 5317 Dec, Major depressive disorder, recurrent episode, unspecified 296.30 and Generalized anxiety disorder 300.02 [place] [address] [place] [address] 96896- 1831 Nov, [place] [address] [place] [address] 42960- 0954 Nov, [place] [id number] [place] [address] 49231- 4859 Nov, [facility] [id number] [place] [address] 76375- 4125 Oct, [facility] [id number] [place] [address] 03671- 4636 Sep, [facility] [id number] [place] [address] 23544- 6788 August, Obsessive-compulsive disorders 300.3 ; Generalized anxiety disorder 300.02 and Major depressive disorder, recurrent episode, unspecified 296.30 [facility] [address] [address]- 3271 August, Chronic hepatitis C without mention of hepatic coma 070.54 ; Hypertension 401.9 and Seasonal allergies 477.9 [facility] [address] [address]- 9874 Jul, [facility] [id number] [place] [address] 56921- 3439 Jul, [facility] [address] [address]- 6471 Jun, [facility] [id number] [place] [address] 43537- 6510 Jun, [facility] [address] [address]- 0760 May, [facility] [address] [address]- 5661 May, [facility] [address] [address]- 6923 May, [facility] [address] [address]- 8054 May, [facility] [address] [address]- 9509 Apr, [facility] [address] [address]- 7742 Apr, [facility] [address] [address]- 5124 Apr, [facility] [address] [address] 2949 Apr, [facility] [address] [address]- 7600 Apr, [facility] [address] [facility] [id number] [place] [address]- 9136 Apr, [facility] [place] [facility] [address] [id number] [place] [address]- 3877 Mar, [facility] [place] [facility] [address] [id number] [place] [address]- 5795 Mar, [facility] [place] [facility] [address] [id number] [place] [address]- 9243 Mar, [facility] [place] [facility] [address] [id number] [place] [address] Mar, [facility] [place] [facility] [address] [id number] [place] [address] Mar, [facility] [place] [facility] [address] [id number] [place] [address] Mar, [facility] [place] [facility] [address] [id number] [place] [address] Mar, [facility] [place] [facility] [address] [id number] [place] [address] Mar, [facility] [place] [facility] [address] [id number] [place] [address] Mar, [facility] [place] [facility] [address] [id number] [place] [address] Feb, [facility] [place] [facility] [address] [id number] [place] [address] Feb, [facility] [place] [facility] [address] [id number] [place] [address] Feb, [facility] [place] [facility] [address] [id number] [place] [address] Feb, [facility] [place] [facility] [address] [id number] [place] [address] Feb, [facility] [place] [facility] [address] [id number] [place] [address] Jan, [facility] [place] [facility] [address] [id number] [place] [address] Jan, [facility] [place] [facility] [address] [id number] [place] [address] Jan, [facility] [place] [facility] [address] [id number] [place] [address] Jan, [facility] [place] [facility] [address] [id number] [place] [address] Jan, [facility] [place] [facility] [address] [id number] [place] [address] Jan, [facility] [place] [facility] [address] [id number] [place] [address] Jan, [facility] [place] [facility] [address] [id number] [place] [address] Jan, [facility] [place] [facility] [address] [id number] [place] [address] Jan, [facility] [place] [facility] [address] [id number] [place] [address] Nov, [facility] [place] [facility] [address] [id number] [place] [address] Nov, [facility] [place] [facility] [address] [id number] [place] [address] Nov, [facility] [place] [facility] [address] [id number] [place] [address] Oct, [facility] [place] [facility] [address] [id number] [place] [address] Oct, [facility] [place] [facility] [address] [id number] [place] [address] Oct, [facility] [place] [facility] [address] [id number] [place] [address] Oct, [facility] [place] [facility] [address] [id number] [place] [address] Sep, [facility] [place] [facility] [address] [id number] [place] [address] Sep, [facility] [place] [facility] [address] [id number] [place] [address] Sep, [facility] [place] [facility] [address] [id number] [place] [address] Sep, [facility] [place] [facility] [address] [id number] [place] [address]- 7396 Sep, [facility] [place] [facility] [address] [id number] [place] [address] Sep, [facility] [place] [facility] [address] [id number] [place] [address] August, [facility] [place] [facility] [address] [id number] [place] [address] August, [facility] [place] [facility] [address] [id number] [place] [address] Jul, [facility] [place] [facility] [address] [id number] [place] [address] Jul, [facility] [place] [facility] [address] [id number] [place] [address] Jul, [facility] [place] [facility] [address] [id number] [place] [address] Jul, [facility] [place] [facility] [address] [id number] [place] [address] Jul, [facility] [place] [facility] [address] [id number] [place] [address] Jul, [facility] [place] [facility] [address] [id number] [place] [address] 27[address] Jul, [facility] [place] [facility] [address] [id number] [place] [address] Jul, [facility] [place] [facility] [address] [id number] [place] [address]40 Jul, [facility] [place] [facility] [address] [id number] [place] [address] Jul, [facility] [place] [facility] [address] [id number] [place] [address] Jun, [facility] [place] [facility] [address] [id number] [place] [address] Jun, [facility] [place] [facility] [address] [id number] [place] [address] 76[address] Jun, [facility] [place] [facility] [address] [id number] [place] [address] 134[address] Jun, [facility] [place] [facility] [address] [facility] [id number] [place] [address] May, [facility] [place] [facility] [address] [id number] [place] [address] 36[address] May, [facility] [place] [facility] [address] [id number] [place] [address] 17[address] May, [facility] [place] [facility] [address] [facility] [id number] [place] [address] 0690 May, [facility] [place] [facility] [address] [facility] [id number] [place] [address] 7[address] May, [facility] [place] [facility] [address] [id number] [place] [address]141 May, [facility] [place] [facility] [address] [id number] [place] [address] Mar, [facility] [place] [facility] [address] [id number] [place] [address] Mar, [facility] [place] [facility] [address] [facility] [id number] [place] [address] Mar, [facility] [place] [facility] [address] [id number] [place] [address] 16 Mar, 2013 [facility] [place] [facility] [address] [id number] [place] [address] 16 Mar, 2013 [facility] [place] [facility] [address] [id number] [place] [address] 16 Mar, 2013 [facility] [place] [facility] [address] [facility] [id number] [place] [address] Feb, [facility] [place] [facility] [address] [id number] [place] [address] Feb, [facility] [place] [facility] [address] [facility] [id number] [place] [address] Feb, [facility] [place] [facility] [address] [id number] [place] [address]165 Feb, [facility] [address] [facility] [id number] [place] [address] 2468 Feb, [facility] [place] [facility] [address] [id number] [place] [address] 9272 12 Feb, 2013 [facility] [place] [facility] [address] [facility] [id number] [place] [address] 07 Feb, 2013 [facility] [place] [facility] [address] [facility] [id number] [place] [address] 07 Feb, 2013 [facility] [place] [facility] [address] [facility] [id number] [place] [address] 1453 18 Jan, 2013 [facility] [place] [facility] [address] [id number] [place] [address] 8743 18 Jan, 2013 [facility] [place] [facility] [address] [id number] [place] [address] 17 Jan, 2013 [facility] [place] [facility] [address] [facility] [id number] [place] [address] 7121 16 Jan, 2013 [facility] [place] [facility] [address] [facility] [id number] [place] [address] 9310 16 Jan, 2013 [facility] [place] [facility] [address] [id number] [place] [address]38 14 Jan, 2013 [facility] [place] [facility] [address] [id number] [place] [address] 7863 14 Jan, 2013 [facility] [place] [facility] [address] [id number] [place] [address]- 5856 11 Jan, 2013 [facility] [place] [facility] [address] [id number] [place] [address]- 3156 11 Jan, 2013 [facility] [place] [facility] [address] [id number] [place] [address]- 6843 10 Jan, 2013 [facility] [place] [facility] [address] [id number] [place] [address]- 7242 27 Dec, 2012 [facility] [place] [facility] [address] [id number] [place] [address] 2790 18 Dec, 2012 [facility] [place] [facility] [address] [id number] [place] [address]- 4811 18 Dec, 2012 [facility] [place] [facility] [address] [id number] [place] [address]- 1254 30 Nov, 2012 [facility] [place] [facility] [address] [id number] [place] [address] 4[address] 29 Nov, 2012 [facility] [place] [facility] [address] [id number] [place] [address]- 0683 Nov, [facility] [place] [facility] [address] [id number] [place] [address] 2991 Nov, [facility] [place] [facility] [address] [id number] [place] [address]- 1661 Nov, [facility] [place] [facility] [address] [id number] [place] [address]- 0499 Nov, [facility] [place] [facility] [address] [id number] [place] [address] 0941 Nov, [facility] [place] [facility] [address] [id number] [place] [address] 2840 Nov, [facility] [place] [facility] [address] [id number] [place] [address] 9249 Nov, [facility] [place] [facility] [address] [id number] [place] [address]- 2556 Nov, [facility] [place] [facility] [address] [id number] [place] [address]- 7526 Oct, [facility] [place] [facility] [address] [id number] [place] [address]- 4668 Oct, [facility] [place] [facility] [address] [id number] [place] [address]- 8990 Oct, [facility] [place] [facility] [address] [id number] [place] [address]- 7793 Oct, [facility] [place] [facility] [address] [id number] [place] [address]- 0786 Oct, [facility] [place] [facility] [address] [id number] [place] [address]- 7099 Oct, [facility] [place] [facility] [address] [id number] [place] [address]- 1485 Oct, [facility] [place] [facility] [address] [id number] [place] [address] 1970 Oct, [facility] [place] [facility] [address] [id number] [place] [address]- 0653 Sep, [facility] [place] [facility] [address] [id number] [place] [address]- 5050 Sep, [facility] [place] [facility] [address] [id number] [place] [address]- 1686 Sep, [facility] [place] [facility] [address] [id number] [place] [address]- 2277 Sep, [facility] [place] [facility] [address] [id number] [place] [address]- 2922 August, [facility] [place] [facility] [address] [id number] [place] [address]- 3850 August, [facility] [address] [id number] [place] [address]- 3382 August, [facility] [address] [id number] Jul, [facility] [address] [id number] Jul, [facility] [address] [id number] [place] [address]- 4695 Jun, [facility] [address] [id number] [place] [address]- 9125 May, [facility] [address] [id number] [place] [address]- 1336 May, [facility] [address] [id number] [place] [address]- 4296 Apr, [facility] [address] [id number] [place] [address] 1943 Feb, [facility] [address] [id number] [place] [address]- 1730 Feb, [facility] [address] [facility] [id number] [place] [address]- 0251 Jan, [facility] [place] [facility] [address] [id number] [place] [address]- 3972 Jan, [facility] [place] [facility] [address] [id number] [place] [address]- 1688 Jan, [facility] [place] [facility] [address] [id number] [place] [address]- 3005 Jan, [facility] [place] [facility] [address] [id number] [place] [address]- 8750 Jan, [facility] [place] [facility] [address] [id number] [place] [address]- 1046 Dec, [facility] [place] [facility] [address] [id number] [place] [address]- 4496 Dec, [facility] [address] [id number] [place] [id number] Nov, [facility] [address] [id number] [place] [address]- 2314 Nov, [facility] [place] [facility] [address] [id number] [place] [address]- 4597 Nov, [facility] [place] [facility] [address] [id number] [place] [address]- 6052 Nov, [facility] [place] [facility] [address] [id number] [place] [address]- 9322 August, [facility] [place] [facility] [address] [id number] [place] [address]- 2653 August, [facility] [place] [facility] [address] [id number] [place] [address]- 4342 August, [facility] [place] [facility] [address] [id number] [place] [address]- 0860 Jul, [facility] [place] [facility] [address] [id number] [place] [address]- 7898 May, [facility] [place] [facility] [address] [id number] [place] [address]- 0609 May, [facility] [place] [facility] [address] [id number] [place] [address]- 7172 May, [facility] [place] [facility] [address] [id number] [place] [address]- 0224 Mar, [facility] [place] [facility] [address] [id number] [place] [address]- 6593 Jan, [facility] [place] [facility] [address] [id number] [place] [address]- 4641 Jan, [facility] [place] [facility] [address] [id number] [place] [address]- 2014 Oct, [facility] [place] [facility] [address] [facility] [id number] [place] [address]- 3651 August, [facility] [address] [facility] [id number] [place] [address]- 6535 Jan, [facility] [address] [facility] [id number] [place] [address]- 3818 Jan, [facility] [address] [facility] [id number] [place] [address]- 3121 Jan, [facility] [address] [facility] [id number] [place] [address]- 3824 Jan, IMMUNIZATIONS No Known Immunizations SOCIAL HISTORY Never Assessed REASON FOR VISIT [facility] [place] VITAL SIGNS MEDICATIONS Medication Instructions Dosage Frequency Start Date End Date Duration Status trazodone 150 mg take 0.5 tablet by Oral route 1 time per day at bedtime for 10 days then D/C August, Active Bactrim DS 800-160 mg 1 tablet by Oral route 2 times per day for 10 day(s) Sep, Active Naprosyn 500 mg 1 tablet by Oral route 2 times per day PRN Mar, Active Hydrochlorothiazide 25 mg 1 tablet by Oral route 1 time per day Nov Active Doxycycline Hyclate 100 mg 1 tablet by Oral route 2 times per day for 10 days Nov, Active Magnesium Oxide 400 mg 1 tablet by Oral route 1 time per day Mar, Active Bactroban 2 % 1 charlie by Topical route 2 times per day for 14 day(s) Jul, Active Potassium Chloride 10 mEq 10 mEq by Oral route 1 time per day Mar, Active Xanax 1 mg 1 tablet by Oral route 3 times per day PRN anxiety Jun, Active Aspirin by Oral route 81mg daily. May, Active Lexapro 20 mg 1 tablet by Oral route 1 time per day Apr, Active RESULTS No Results PROCEDURES No Known [...]
--- NOTE | 2018-08-15 15:24 | ED Lower Extremity ---
General Stated Complaint: FALL 08/13, BILAT KNEE PAIN/R FOOT PAIN Source: patient Exam Limitations: no limitations History of Present Illness Date Seen by Provider: August 15, 2018 Time Seen by Provider: 15:22 Initial Comments To ER with reports of a fall on 08/13/18. Landed on both knees in his bathroom. He 's been able to bear weight but reports that he has pain that he rates at an " 10 or 11 on a scale of 0-10. Complains of pain to the right second toe, right knee being the worst. Onset: just prior to arrival Severity: moderate Pain/Injury Location: right knee, right 2nd toe Method of Injury: fell Modifying Factors: Worse With Movement Allergies and Home Medications Allergies Coded Allergies: No Known Drug Allergies (Unverified , 12/05/11) Home Medications Alprazolam 1 Mg Tab, 1 MG PO TID PRN for ANXIETY, (Reported) NEEDED FOR ANXIETY Aspirin 81 Mg Tabec, 81 MG PO DAILY, (Reported) Cyclobenzaprine Hcl 10 Mg Tablet, 10 MG PO BID PRN for MUSCLE SPASMS, (Reported) NEEDED FOR MUSCLE SPASMS Escitalopram Oxalate 20 Mg Tablet, 20 MG PO DAILY, (Reported) Gabapentin 300 Mg Cap, 300 MG PO BID, (Reported) TAKES IN THE MORNING AND AROUND 1400 Gabapentin 300 Mg Capsule, 1,200 MG PO HS, (Reported) TAKES 4 (300MG) CAPSULES AT BEDTIME Hydrochlorothiazide 25 Mg Tablet, 25 MG PO DAILY, (Reported) Mirtazapine 15 Mg Tab, 15 MG PO HS, (Reported) Multivitamin 1 Each Tablet, 1 TAB PO DAILY, (Reported) Ondansetron 4 Mg Tab.rapdis, 4 MG SL Q4H PRN for NAUSEA/VOMITING-1ST LINE Prescribed by: LUIS ENRIQUE JAMIL on 02/08/182035 Propranolol Hcl 40 Mg Tablet, 40 MG PO TID, (Reported) Sulfamethoxazole/Trimethoprim 1 Each Tablet, 1 EACH PO BID Prescribed by: LUIS ENRIQUE JAMIL on 02/08/182035 Patient Home Medication List Home Medication List Reviewed: Yes Review of Systems Constitutional: see HPI EENTM: see HPI Respiratory: no symptoms reported Cardiovascular: no symptoms reported Genitourinary: no symptoms reported Musculoskeletal: see HPI Skin: no symptoms reported Psychiatric/Neurological: No Symptoms Reported Past Oeomkex-Cruvyr-Ghksdf Hx Patient Social History Alcohol Beverage of Choice: Beer Type Used: Smokeless Tobacco Recent Foreign Travel: No Contact w/Someone Who Travel: No Recent Hopitalizations: No Immunizations Up To Date Tetanus Booster (TDap): More than 5yrs PED Vaccines UTD: No Date of Pneumonia Vaccine: Jan 12, 2012 Date of Influenza Vaccine: Jan 11, 2014 Seasonal Allergies Seasonal Allergies: Yes Past Medical History Surgeries: Yes (CARDIAC STENT) Respiratory: Yes Sleep Apnea, COPD Cardiac: Yes (CHF, CARDIAC STENT X1 ) Heart Murmur, Hypertension Neurological: Yes TIA Reproductive Disorders: No Sexually Transmitted Disease: No HIV/AIDS: No Gastrointestinal: Yes (HEPATITIS C) Hepatitis Musculoskeletal: No (FX RIGHT THUMB, LEFT LEG AND NOSE, left hip) Fractures Endocrine: No Cancer: Yes (lip, from chewing tobacco) Psychosocial: Yes Sleep Difficulties, Anxiety, Depression Integumentary: No Blood Disorders: Yes (HEPATITIS) Adverse Reaction/Blood Tranf: No Family Medical History Family history: Hypertension Heart disease No Pertinent Family Hx Physical Exam Vital Signs Vital Signs - First Documented 08/15/18 15:20 Temp 97.9 Pulse 75 Resp 18 B/P (MAP) 147/96 (113) Pulse Ox 95 Capillary Refill : Height, Weight, BMI Height: 6'0" Weight: 235lbs. oz. 106.188190bs; 27.12 BMI Method:Stated General Appearance: WD/WN, no apparent distress Respiratory: no respiratory distress, no accessory muscle use Hips: bilateral hip non-tender, bilateral hip normal inspection, bilateral hip normal range of motion Legs: bilateral leg non-tender, bilateral leg normal inspection, bilateral leg normal range of motion Knees: right knee pain, right knee other (no deformity no effusion no abrasion or erythema or ecchymosis) Ankles: bilateral ankle non-tender, bilateral ankle normal inspection, bilateral ankle normal range of motion Feet: right foot other (there is bruising to the proximal aspect of the second toe on the right) Neurologic/Psychiatric: alert, normal mood/affect, oriented x 3 Skin: normal color, warm/dry Progress/Results/Core Measures Results/Orders My Orders Orders - ROSIE VARELA APRN Ketorolac Injection (Toradol Injection) (08/15/18 15:30) Knee, Right, 3 Views (08/15/18 15:21) Foot, Right, 3 View (5/5/19 15:21) Medications Given in ED Current Medications Medications Dose Ordered Sig/Higinio Route Start Time Stop Time Status Last Admin Dose Admin Ketorolac Tromethamine 60 mg ONCE ONCE IM 08/15/18 15:30 08/15/18 15:31 DC 08/15/18 15:36 60 MG Vital Signs/I&O 08/15/18 15:20 Temp 97.9 Pulse 75 Resp 18 B/P (MAP) 147/96 (113) Pulse Ox 95 Departure Impression Primary Impression: Toe fracture, right Qualified Codes: S92.511A - Displaced fracture of proximal phalanx of right lesser toe(s), initial encounter for closed fracture Additional Impression: Knee contusion Qualified Codes: S80.01XA - Contusion of right knee, initial encounter Disposition: HOME, SELF-CARE Condition: Stable Departure-Patient Inst. Decision time for Depature: 15:49 Referrals: [facility] (PCP) Primary Care Physician ROSIO IRBY (Family) Primary Care Physician Patient Instructions: Toe Fracture Add. Discharge Instructions: 1. Follow-up with your doctor next week 2. Return to ER for any concerns 3. Elevate foot as much as possible. Hydrocodone can be very sedating especially when given with the gabapentin and alprazolam that you're already on. As such she should take this as infrequently as possible, using acetaminophen as much as you can as well as an ice pack to help with pain. Scripts Hydrocodone/Acetaminophen ([place] 5-325 Tablet) 1 Each Tablet 1 TAB PO Q6H for Pain MDD 10 TABS for 2 Days, #10 TAB Prov: ROSIE VARELA APRN 08/15/18 ROSIE VARELA APRN August 15, 2018 15:24
--- OUTSIDE RECORDS SUMMARY | 2018-08-15 15:24 | XMS REPORT ---
Author Author Migration, Doctor Organization [facility] Address Unknown Phone Unavailable Care Team Providers Care It Security Engineer Name Role Phone Migration, Doctor Unavailable Unavailable PROBLEMS Type Condition ICD9-CM Code [id number] Code Onset Dates Condition Status SNOMED Code Problem Allergic rhinitis, unspecified allergic rhinitis type J30.9 Active 96188721 Problem Hyperammonemia E72.20 Active 9992003 Problem Obsessive compulsive disorder F42 Active 863482023 Problem Mood disorder F39 Active 53512288 Problem Seasonal allergic rhinitis due to other allergic trigger J30.89 Active 855597438 Problem Chronic hepatitis C without hepatic coma B18.2 Active 065891717 Problem Anxiety F41.9 Active 65098727 Problem History of alcohol abuse Z87.898 Active 551023859 Problem Hypertension, benign I10 Active 65296523 Problem Generalized anxiety disorder F41.1 Active 04926902 Problem Other chronic pain G89.29 Active 11680970 Problem Mild episode of recurrent major depressive disorder F33.0 Active 864471102 ALLERGIES No Information ENCOUNTERS Encounter Location Date Diagnosis [place] [id number] [place] [address] 83741- 2010 Jun, [place] [address] 95974- 4319 Jun, Mild episode of recurrent major depressive disorder F33.0 [place] [address] 61276- 8989 May, Mood disorder F39 ; Generalized anxiety disorder F41.1 ; Mild episode of recurrent major depressive disorder F33.0 and Anxiety F41.9 [place] [address] 81963- 5838 Mar, Anxiety F41.9 and Seasonal allergic rhinitis due to other allergic trigger J30.89 [place] [address] 57306- 3277 Feb, [facility] [id number] [place] [address] 97190- 7303 Feb, Generalized anxiety disorder F41.1 ; Eczema of both hands L30.9 and Encounter for immunization Z23 [facility] [id number] [place] [address] 48294- 4849 Feb, Chronic hepatitis C without hepatic coma B18.2 [facility] [address] 40196- 7650 Jan, Mood disorder F39 [facility] [id number] [place] [address] 71292- 2723 Jan, Chronic hepatitis C without hepatic coma B18.2 [facility] [id number] [place] [address] 93374- 3646 Dec, Mild episode of recurrent major depressive disorder F33.0 ; Other chronic pain G89.29 ; Pain in left shoulder M25.512 and Pain in right shoulder M25.511 [facility] [id number] [place] [address] 20134- 6177 Dec, Chronic hepatitis C without hepatic coma B18.2 [facility] [id number] [place] [address] 73986- 8264 Nov, Chronic hepatitis C without hepatic coma B18.2 [facility] [id number] [place] [address] 51743- 3698 Oct, Bronchitis J40 [facility] [id number] [place] [address] 00781- 3322 Oct, Chronic hepatitis C without hepatic coma B18.2 and Cough R05 [facility] [id number] [place] [address] 04766- 7814 Sep, Chronic hepatitis C without hepatic coma B18.2 [facility] [id number] [place] [address] 68070- 2203 August, Chronic hepatitis C without hepatic coma B18.2 [facility] [address] [address] 3210 Jul, Chronic hepatitis C without hepatic coma B18.2 [facility] [id number] [place] [address] 27776- 1436 Jul, Generalized anxiety disorder F41.1 ; Mood disorder F39 and History of hepatitis C Z86.19 [facility] [id number] [place] [address] 36138- 9426 Jul, Chronic hepatitis C without hepatic coma B18.2 [facility] [id number] [place] [address] 85785- 9190 Jun, Chronic hepatitis C without hepatic coma B18.2 [facility] [id number] [place] [address] 41468- 2246 Jun, [facility] [id number] [place] [address] 63139- 7946 May, Chronic hepatitis C without hepatic coma B18.2 [facility] [id number] [place] [address] 06827- 4656 May, Hypertension, benign I10 [facility] [id number] [place] [address] 82154- 8141 Apr, Chronic hepatitis C without hepatic coma B18.2 [facility] [id number] [place] [address] 24235- 0098 Apr, Hypertension, benign I10 [facility] [id number] [place] [address] 10404 2547 Mar, Chronic hepatitis C without hepatic coma B18.2 [facility] [id number] [place] [address] 24597- 8986 Mar, Hypertension, benign I10 [facility] [address] [address]- 9556 Mar, Hypertension, benign I10 ; Encounter for immunization Z23 and Strain of right Achilles tendon, initial encounter S86.011A [facility] [address] [address]- 2350 Feb, Chronic hepatitis C without hepatic coma B18.2 [facility] [id number] [place] [address] 69936- 3125 Jan, Chronic hepatitis C without hepatic coma B18.2 [facility] [id number] [place] [address] 63874 -1623 Jan, Toe pain, right M79.674 and Cellulitis of foot, right L03.115 [facility] [id number] [place] [address] 75099- 7508 Dec, Chronic hepatitis C without hepatic coma B18.2 [facility] [id number] [place] [address] 13075- 2086 Nov, Chronic hepatitis C without hepatic coma B18.2 and Eczema of both hands L30.9 [facility] [address] [address]- 0133 Nov, [facility] [id number] [place] [address] 70261- 1810 Oct, [facility] [id number] [place] [address] 34408- 9902 Sep, [facility] [address] [address]- 4819 August, [facility] [id number] [place] [address]- 0876 August, [facility] [address] [address]- 5001 Jul, [facility] [id number] [place] [address] 77718- 2747 Jul, [facility] [address], [place] [address]- 5575 Jun, [facility] [address] [place] [address]- 1216 Jun, [facility] [id number] [place] [address] 18994- 1194 May, [facility] [id number] [place] [address] 27326- 3620 Apr, Chronic hepatitis C without hepatic coma B18.2 ; Hyperglycemia R73.9 and Hypertension, benign I10 [facility] [id number] [place] [address] 04591- 3375 Apr, Chronic hepatitis C without hepatic coma B18.2 ; Mood disorder F39 ; Hypertension, benign I10 and Hyperglycemia R73.9 [facility] [address], [place] [address]- 2164 Apr, [facility] [id number] [place] [address] 41247- 8775 Apr, [facility] [address] [address]- 7814 Apr, [facility] [address], [place] [address]- 2601 Feb, [facility] [id number] [address]- 9290 Feb, [facility] [address] [address]- 1144 Feb, [facility] [address] [place] [address] 2541 Feb, [facility] [address], [place] [address]- 2345 Jan, [facility] [id number] [address]- 2426 Jan, Chronic hepatitis C without hepatic coma B18.2 ; Mood disorder F39 ; Encounter for immunization Z23 and Chronic viral hepatitis C B18.2 [facility] [id number] [address]- 4643 Jan, [facility] [id number] [address]- 0430 Jan, [facility] [address], [place] [address]- 4075 Dec, [facility] [id number] [place] [address] 77996- 4211 Dec, [facility] [id number] [place] [address] 57797- 5666 Nov, [facility] [id number] [place] [address] 07648- 7714 Nov, Weakness of both legs M62.81 [facility] [id number] [place] [address] 15536- 7150 Nov, [facility] [id number] [place] [address] 78241- 8191 Nov, [facility] [id number] [place] [address] 18681- 8923 Nov, [facility] [id number] [place] [address] 45960- 3718 Nov, Eczema, unspecified type L30.9 [facility] [address] [address]- 8708 Nov, [facility] [address], [place] [address]- 7546 Nov, Eczema, unspecified type L30.9 ; Cessation of tobacco use in previous 12 months Z87.891 and Weakness of both legs M62.81 [facility] [address], [place] [address]- 3537 Oct, [facility] [address], [place] [address]- 2986 Oct, [facility] [id number] [address]- 9910 Oct, [facility] [address], [place] [address]- 7983 Oct, Chronic viral hepatitis C B18.2 [facility] [id number] [address]- 8517 Sep, [facility] [id number] [place] [address] 05747- 6757 Sep, 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 and Generalized anxiety disorder F41.1 [facility] [id number] [place] [address] 20231- 4506 Sep, [facility] [id number] [place] [address] 36926- 4300 August, [facility] [id number] [place] [address] 05243- 0773 August, Hyperammonemia E72.20 [facility] [id number] [address]- 9774 August, Hyperammonemia E72.20 [facility] [id number] [place] [address] 13691- 6789 August, Hyperammonemia E72.20 and Chronic hepatitis C without hepatic coma B18.2 [facility] [address], [place] [address]- 8130 August, Chronic viral hepatitis C B18.2 [facility] [address], [place] [address]- 0005 August, [facility] [id number] [place] [address] 96295- 2239 Jul, Chronic viral hepatitis C B18.2 and Hyperammonemia E72.20 [facility] [address], [place] [address]- 2750 Jul, Chronic viral hepatitis C B18.2 [facility] [address], [place] [address]- 3427 13 Jul, 2015 [facility] [address], [place] [address]- 8201 04 Jul, 2015 [facility] [address], [place] [address]- 3198 28 Jun, 2015 [facility] [id number] [place] [address] 40140- 0937 23 Jun, 2015 Chronic viral hepatitis C B18.2 and Hyperammonemia E72.20 [facility] [address] [place] [address]- 3853 21 Jun, 2015 [facility] [id number] [place] [address] 43884- 4950 18 Jun, 2015 [facility] [id number] [place] [address] 71487- 0520 16 Jun, 2015 Chronic viral hepatitis C B18.2 [facility] [address] [place] [address]- 4904 10 Jun, 2015 [facility] [address], [place] [address]- 2263 07 Jun, 2015 Chronic viral hepatitis C B18.2 [facility] [address], [place] [address]- 8211 17 May, 2015 Hepatitis C, chronic B18.2 and Chronic viral hepatitis C B18.2 [facility] [address], [place] [address]- 1963 15 May, 2015 [facility] [address], [place] [address]- 5859 Apr, [facility] [address], [place] [address]- 9145 Apr, Chronic viral hepatitis C B18.2 and Hyperammonemia E72.20 [facility] [address], [place] [address]- 8879 Apr, Chronic viral hepatitis C B18.2 [place] [id number] [place] [address] 72836- 4244 Apr, Hyperammonemia E72.20 [place] [address] 21277- 2143 Apr, [place] [address] 33183- 6761 Apr, [place] [address] 78930- 1304 Apr, Chronic hepatitis C without hepatic coma B18.2 ; Hyperammonemia E72.20 and Chronic viral hepatitis C B18.2 [place] [address] 58488- 1655 Mar, Shortness of breath R06.02 [place] [address] 54453- 3389 Mar, Mood disorder F39 and Major depressive disorder, recurrent episode, unspecified 296.[address] 54042- 4549 Mar, [place] [address] 13368- 5501 Mar, [place] [id number] [place] [address] 53143- 9678 Mar, [facility] [address] 06332 -0521 Mar, Seasonal allergies J30.2 ; Shortness of breath R06.02 and Cough R05 [address] 06657- 7888 Mar, Hyperammonemia E72.20 ; Mood disorder F39 and History of alcohol abuse Z87.[address] 27268- 8660 Mar, Hyperammonemia E72.20 [facility] [id number] [place] [address] 68936- 1557 Mar, [facility] [id number] [place] [address] 58929- 6800 Feb, [facility] [id number] [place] [address] 86950- 8093 Feb, [facility] [id number] [place] [address] 58194- 1906 Feb, Hyperammonemia E72.20 [facility] [id number] [place] [address] 85622- 0715 Feb, [facility] [id number] [place] [address] 31886- 8355 Feb, [facility] [id number] [place] [address] 45073- 6107 Feb, [facility] [id number] [place] [address] 82849- 0612 Feb, [facility] [id number] [place] [address] 21714- 7017 Feb, Chronic viral hepatitis C B18.2 [facility] [id number] [place] [address] 84336- 0400 Feb, Chronic viral hepatitis C B18.2 [facility] [id number] [place] [address] 48876- 4323 Feb, [facility] [id number] [place] [address] 31102- 6325 Feb, Chronic viral hepatitis C B18.2 and Confusion R41.0 [facility] [id number] [place] [address] 91915- 2581 Feb, [facility] [id number] [place] [address] 02420- 5572 Jan, [facility] [id number] [address]- 5242 Jan, Confusion R41.[address] [facility] [address], [place] [address]- 6954 Jan, [facility] [address], [place] [address]- 0639 Jan, [facility] [id number] [place] [address] 76647- 4984 Jan, 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 [facility] [id number] [place] [address] 17018- 4988 Jan, [facility] [id number] [place] [address] 56834- 2631 Jan, [facility] [id number] [place] [address] 74185- 9236 Jan, [facility] [address] [address]- 7185 Jan, [facility] [address] [place] [address] 23056- 5915 Jan, Chronic viral hepatitis C B18.2 [facility] [address] [address]- 0293 Jan, [facility] [id number] [place] [address] 47442- 2597 Jan, Back pain at L4-L5 level M54.[address] [facility] [address], [place] [address]- 7615 Jan, [facility] [address] 16818- 6670 30 Dec, 2014 Chronic viral hepatitis C B18.2 and Flu vaccine need V04.81 [place] [address] 04346- 0984 30 Dec, 2014 Chronic viral hepatitis C B18.2 [place] [address] 41008- 4548 Dec, [place] [address] 84295- 9991 Dec, Polyuria 788.42 [place] [address] 44064- 6596 Dec, Polyuria 788.42 ; Polydipsia 783.5 ; Dizziness 780.4 and Hepatitis C, chronic 070.54 [place] [address] 59332- 5197 Dec, Major depressive disorder, recurrent episode, unspecified 296.30 and Generalized anxiety disorder 300.02 [place] [address] 21569- 1393 Nov, [place] [address] 73674- 1086 Nov, [place] [id number] [place] [address] 84591- 2757 Nov, [place] [address] 72308- 9273 Oct, [facility] [id number] [place] [address] 32836- 8639 Sep, [place] [address] 70633- 4483 August, Obsessive-compulsive disorders 300.3 ; Generalized anxiety disorder 300.02 and Major depressive disorder, recurrent episode, unspecified 296.30 [place] [address] 58376- 7793 August, Chronic hepatitis C without mention of hepatic coma 070.54 ; Hypertension 401.9 and Seasonal allergies 477.9 [facility] [address] [address] 2896 Jul, [facility] [address], [place] [address]- 7096 Jul, [facility] [id number] [place] [address] 57347- 1340 Jun, [facility] [id number] [address] Jun, [facility] [address], [place] [address]- 64[address] May, [facility] [id number] [place] [address]- 53[address] May, [facility] [address], [place] [address]- 2629 May, [facility] [address], [place] [address]- 6832 May, [facility] [address], [place] [address]- 3421 Apr, [facility] [address], [place] [address]- 8393 Apr, [facility] [address], [place] [address]- 4605 Apr, [facility] [address], [place] [address]- 9463 Apr, [facility] [address] 1158 Apr, [facility] [id number]- 7609 Apr, [facility] [id number] 9240 Mar, [facility] [place] [facility] [address] [id number] [place] 7085 Mar, [facility] [place] [facility] [address] [id number] [place] [address]- 4949 Mar, [facility] [place] [facility] [address] [id number] [place]- 0068 Mar, [facility] [place] [facility] [address] [id number] [place] [address]- 2597 Mar, [facility] [place] [facility] [address] [id number] [place] 7457 Mar, [facility] [place] [facility] [address] [id number] [place] [address]- 2664 Mar, [facility] [place] [facility] [address] [id number] [place] [address]- 1065 Mar, [facility] [place] [facility] [address] [id number] [place] [address]- 4036 Mar, [facility] [place] [facility] [address] [id number] [place] [address]- 9311 Feb, [facility] [place] [facility] [address] [facility] [id number] [place] [address]- 3696 Feb, [facility] [place] [facility] [address] [id number] [place] [address]- 7348 Feb, [facility] [place] [facility] [address] [id number] [place] [address]- 1391 Feb, [facility] [place] [facility] [address] [id number] [place]- 9786 Feb, [facility] [place] [facility] [address] [id number] [place] [address]- 5512 Jan, [facility] [place] [facility] [address] [id number] [place] [address]- 8151 Jan, [facility] [place] [facility] [address] [id number] [place] [address]- 4132 Jan, [facility] [place] [facility] [address] [id number] [place] [address]- 1741 Jan, [facility] [place] [facility] [address] [id number] [place] [address]- 0960 Jan, [facility] [place] [facility] [address] [id number] [place] [address]- 8081 Jan, [facility] [place] [facility] [address] [id number] [place] [address]- 9554 Jan, [facility] [place] [facility] [address] [id number] [place] [address]- 6385 Jan, [facility] [place] [facility] [address] [id number] [place] [address]- 8074 Jan, [facility] [place] [facility] [address] [id number] [place] [address]- 2493 Nov, [facility] [place] [facility] [address] [id number] [place] [address] Nov, [facility] [place] [facility] [address] [id number] [place] [address] Nov, [facility] [place] [facility] [address] [id number] [place] [address] Oct, [facility] [place] [facility] [address] [id number] [place] [address] Oct, [facility] [place] [facility] [address] [id number] [place] [address] Oct, [facility] [place] [facility] [address] [id number] [place] [address] Oct, [facility] [place] [facility] [address] [id number] [place] [address] Sep, [facility] [place] [facility] [address] [id number] [place] [address] Sep, [facility] [place] [facility] [address] [id number] [place] [address] Sep, [facility] [place] [facility] [address] [id number] [place] [address] Sep, [facility] [place] [facility] [address] [id number] [place] [address] Sep, [facility] [place] [facility] [address] [id number] [place] [address] Sep, [facility] [place] [facility] [address] [id number] [place] [address] August, [facility] [place] [facility] [address] [id number] [place] [address] August, [facility] [place] [facility] [address] [id number] [place] [address] Jul, [facility] [place] [facility] [address] [id number] [place] [address] Jul, [facility] [place] [facility] [address] [id number] [place] [address] Jul, [facility] [place] [facility] [address] [id number] [place] [address] Jul, [facility] [place] [facility] [address] [id number] [place] [address] Jul, [facility] [place] [facility] [address] [id number] [place] [address] Jul, [facility] [facility] [address] [id number] [place] [address] Jul, [facility] [place] [facility] [address] [id number] [place] [address] Jul, [facility] [place] [facility] [address] [id number] [place] [address] Jul, [facility] [place] [facility] [address] [id number] [place] [address] 08 Jul, 2013 [facility] [place] [facility] [address] [id number] [place] [address] Jun, [facility] [place] [address] [id number] [place] [address] Jun, [facility] [place] [facility] [address] [id number] [place] [address] Jun, [facility] [place] [facility] [address] [id number] [place] [address] Jun, [facility] [place] [facility] [address] [id number] [place] [address] May, [facility] [place] [facility] [address] [id number] [place] [address] May, [facility] [address] [id number] [place] [address] May, [facility] [address] [id number] [place] [address] May, [facility] [facility] [address] [id number] [place] [address] May, [facility] [address] [id number] [place] [address] May, [facility] [address] [id number] [place] [address] 15[address] Mar, [facility] [address] [id number] [place] [address] Mar, [facility] [address] [id number] [place] [address] Mar, [facility] [facility] [address] [id number] [place] [address] 16 Mar, 2013 [facility] [address] [id number], [place] [address] 16 Mar, 2013 [facility] [address] [id number] [place] [address]- [address] 16 Mar, 2013 [facility] [address] [id number], [place] [address] Feb, [facility] [address] [id number] [place] [address] Feb, [facility] [address] [id number], [place] [address] 2019 Feb, [facility] [address] [id number] [place] [address] Feb, [facility] [address] [id number], [place] [address]- 18[address] Feb, [facility] [address] [id number], [place] [address]- [address] Feb, [facility] [address] [id number], [place] [address] Feb, [facility] [address] [id number], [place] [address] 07 Feb, 2013 [facility] [address] [id number], [place] [address] 18 Jan, 2013 [facility] [address] [id number], [place] [address] 18 Jan, 2013 [facility] [address] [id number], [place] [address]- [address] 17 Jan, 2013 [facility] [address] [id number], [place] [address] 16 Jan, 2013 [facility] [address] [id number], [place] [address] 8[address] 16 Jan, 2013 [facility] [address] [id number], [place] [address] 14 Jan, 2013 [facility] [address] [id number] [place] [address]- [address] 14 Jan, 2013 [facility] [address] [id number] [place] [address]- [address] 11 Jan, 2013 [facility] [address] [id number] [place] [address]- [address] 11 Jan, 2013 [facility] [address] [id number] [place] [address]- [address] 10 Jan, 2013 [facility] [address] [id number] [place] [address]- [address] 27 Dec, 2012 [facility] [address] [id number] [place] [address]- [address] 18 Dec, 2012 [facility] [address] [id number] [place] [address]- [address] 18 Dec, 2012 [facility] [address] [id number] [place] [address]- [address] 30 Nov, 2012 [facility] [address] [id number] [place] [address]- [address] 29 Nov, 2012 [facility] [address] [id number] [place] [address]- 1315 Nov, [facility] [address] [id number] [place] [address] Nov, [facility] [address] [id number] [place] [address]- 57[address] Nov, [facility] [address] [id number] [place] [address]- 7939 Nov, [facility] [address] [id number] [place] [address]- 0530 Nov, [facility] [address] [id number] [place] [address]- 8528 14 Nov, 2012 [facility] [address] [id number] [place] [address]- [address] Nov, [facility] [address] [id number] [place] [address]- 4708 Nov, [facility] [address] [id number] [place] [address]- 1190 Oct, [facility] [address] [id number] [place] [address]- 4456 Oct, [facility] [address] [id number] [place] [address]- 3889 Oct, [facility] [address] [id number] [place] [address]- 8847 Oct, [facility] [address] [id number] [place] [address]- 8256 Oct, [facility] [address] [id number] [place] [address]- 0506 Oct, [facility] [address] [id number] [place] [address]- 8108 Oct, [facility] [address] [id number] [place] [address] 3849 Oct, [facility] [address] [id number] [place] [address]- 6976 Sep, [facility] [address] [id number] [place] [address]- 5930 Sep, [facility] [address] [id number] [place] [address]- 4914 Sep, [facility] [address] [id number] [place] [address]- 7198 Sep, [facility] [address] [id number] [place] [address]- 3036 August, [facility] [address] [id number] [place] [address]- 8101 August, [facility] [address] [id number], [place] [address] August, [facility] [address] [id number] Jul, [facility] [address] [id number] Jul, [facility] [address] [facility] [id number] [place] [address]- [address]46 Jun, [facility] [address] [id number], [place] [address]- [address]196 May, [facility] [address] [facility] [id number] [place] [address]- 2546 May, [facility] [address] [facility] [id number] [place] [address]- 9666 Apr, [facility] [address] [facility] [id number], [place] [address]- 3[address] Feb, [facility] [address] [facility] [id number] [place] [address]- 4552 Feb, [facility] [address] [facility] [id number] [place] [address]- 3587 Jan, [facility] [address] [facility] [id number], [place] [address] Jan, [facility] [address] [facility] [id number], [place] [address]- 4758 Jan, [facility] [address] [facility] [id number], [place] [address]- 4436 Jan, [facility] [address] [facility] [id number], [place] [address]- 9106 Jan, [facility] [address] [facility] [id number], [place] [address]- 2546 Dec, [facility] [address] [facility] [id number], [place] [address]- [address] Dec, [facility] [address] [facility] [id number] [id number] Nov, [facility] [address] [id number] [place] [address]- 8626 Nov, [facility] [address] [id number] [place] [address]- 9111 Nov, [facility] [address] [id number] [place] [address]- 7369 Nov, [facility] [address] [id number] [place] [address]- 3339 August, [facility] [address] [id number] [place] [address]- 0542 August, [facility] [address] [id number] [place] [address]- 1311 August, [facility] [address] [id number] [place] [address]- 3112 Jul, [facility] [address] [id number] [place] [address]- 8277 May, [facility] [address] [id number] [place] [address]- 4409 May, [facility] [address] [id number] [place] [address]- 4955 May, [facility] [address] [id number] [place] [address]- 1813 Mar, [facility] [address] [id number] [place] [address]- 0279 Jan, [facility] [address] [id number] [place] [address]- 8100 Jan, [facility] [address] [id number] [place] [address]- 2536 Oct, [facility] [address] [id number] [place] [address]- [address] August, [facility] [address] [id number] [place] [address]- 3044 Jan, [facility] [address] [facility] [id number] [place] [address]- 7713 Jan, [facility] [address] [facility] [id number], [place] [address]- 9766 Jan, [facility] [address] [facility] [id number] [place] [address]- 7616 Jan, IMMUNIZATIONS No Known Immunizations SOCIAL HISTORY Never Assessed REASON FOR VISIT EMR-[facility] [place] PLAN OF CARE VITAL [...]
--- OUTSIDE RECORDS SUMMARY | 2018-08-15 15:25 | XMS REPORT ---
Author Author ROSIO IRBY Organization [facility] Address [address] [place] [address] Care Team Providers Care Marketing Program Manager Name Role Phone ROSIO IRBY Unavailable PROBLEMS Type Condition ICD9-CM Code TNC07-GC Code Onset Dates Condition Status SNOMED Code Problem History of alcohol abuse Z87.898 Active 598511391 Problem Allergic rhinitis, unspecified allergic rhinitis type J30.9 Active 21842156 Problem Chronic hepatitis C without hepatic coma B18.2 Active 564993868 Problem Mood disorder F39 Active 60061885 Problem Other chronic pain G89.29 Active 19732404 Problem Mild episode of recurrent major depressive disorder F33.0 Active 536797423 Problem Obsessive compulsive disorder F42 Active 851658968 Problem Hyperammonemia E72.20 Active 0365669 Problem Generalized anxiety disorder F41.1 Active 56648869 Problem Hypertension, benign I10 Active 98250282 ALLERGIES No Information ENCOUNTERS Encounter Location Date Diagnosis [place] [id number] [address]- [address] Mar, [facility] [address] 88324- 4426 Feb, [facility] [address] 89465- 0769 Feb, Generalized anxiety disorder F41.1 ; Eczema of both hands L30.9 and Encounter for immunization Z23 [facility] [address] 58172- 7304 Feb, Chronic hepatitis C without hepatic coma B18.2 [facility] [address] [place] [id number] [place] [address] 89932- 0646 10 Jan, 2018 Mood disorder F39 [facility] [address] 23865- 7169 Jan, Chronic hepatitis C without hepatic coma B18.2 [facility] [address] [place] [id number] [place] [address] 78235- 8690 Dec, Mild episode of recurrent major depressive disorder F33.0 ; Other chronic pain G89.29 ; Pain in left shoulder M25.512 and Pain in right shoulder M25.511 [facility] [address] [place] [id number] [place] [address] 29700- 2670 Dec, Chronic hepatitis C without hepatic coma B18.2 [facility] [address] [place] [id number] [place] [address] 10462- 4053 Nov, Chronic hepatitis C without hepatic coma B18.2 [facility] [address] [place] [id number] [place] [address] 72938- 8725 Oct, Bronchitis J40 [facility] [address] [place] [id number] [place] [address] 07006- 5934 Oct, Chronic hepatitis C without hepatic coma B18.2 and Cough R05 [facility] [address] [place] [id number] [place] [address] 81107- 8330 Sep, Chronic hepatitis C without hepatic coma B18.2 [facility] [address] [place] [id number] [place] [address] 75243- 4970 August, Chronic hepatitis C without hepatic coma B18.2 [facility] [address] [place] [id number] [place] [address] 60279- 9626 Jul, Chronic hepatitis C without hepatic coma B18.2 [facility] [address] [place] [id number] [place] [address] 55038- 2109 Jul, Generalized anxiety disorder F41.1 ; Mood disorder F39 and History of hepatitis C Z86.19 [facility] [address] [place] [id number] [place] [address] 13242- 4535 Jul, Chronic hepatitis C without hepatic coma B18.2 [facility] [address] [place] [id number] [place] [address] 15538- 7330 Jun, Chronic hepatitis C without hepatic coma B18.2 [facility] [id number] [place] [address] 38358- 2053 Jun, [facility] [address] [place] [id number] [place] [address] 99740- 8246 May, Chronic hepatitis C without hepatic coma B18.2 [facility] [address] [place] [id number] [place] [address] 27900- 8389 May, Hypertension, benign I10 [facility] [address] [place] [id number] [place] [address] 70074- 4277 Apr, Chronic hepatitis C without hepatic coma B18.2 [facility] [address] [place] [id number] [place] [address] 29958- 8701 Apr, Hypertension, benign I10 [place] [address] [place] [id number] [place] [address] 14326- 0742 Mar, Chronic hepatitis C without hepatic coma B18.2 [facility] [address] [place] [id number] [place] [address] 96573- 1339 Mar, Hypertension, benign I10 [place] [address] [place] [id number] [place] [address] 21728- 8822 Mar, Hypertension, benign I10 ; Encounter for immunization Z23 and Strain of right Achilles tendon, initial encounter S86.011A [facility] [address] [place] [id number] [place] [address] 56288- 7262 Feb, Chronic hepatitis C without hepatic coma B18.2 [facility] [address] [place] [id number] [place] [address] 51234- 1499 Jan, Chronic hepatitis C without hepatic coma B18.2 [facility] [address] [place] [id number] [place] [address] 57187 -0172 Jan, Toe pain, right M79.674 and Cellulitis of foot, right L03.115 [facility] [address] [place] [id number] [place] [address] 11933- 1364 Dec, Chronic hepatitis C without hepatic coma B18.2 [facility] [address] [address]- 1350 Nov, Chronic hepatitis C without hepatic coma B18.2 and Eczema of both hands L30.9 [facility] [address] [address]- 9766 Nov, [facility] [address] [place] [address] [id number] [address]- 4508 Oct, [facility] [address] [address]- 4282 Sep, [facility] [address] [place] [address] [id number] [address]- 4131 August, [facility] [address] [address]- 9829 August, [facility] [address] [address]- 2564 Jul, [facility] [address] [address]- 9539 Jul, [facility] [address] [address]- 4548 Jun, [facility] [address] [address]- 0790 Jun, [facility] [address] [address]- 6709 May, [facility] [address] [address]- 1232 Apr, Chronic hepatitis C without hepatic coma B18.2 ; Hyperglycemia R73.9 and Hypertension, benign I10 [facility] [address] [place] [id number] [address]- 4570 Apr, Chronic hepatitis C without hepatic coma B18.2 ; Mood disorder F39 ; Hypertension, benign I10 and Hyperglycemia R73.9 [facility] [address] [place] [address] [id number] [place] [address]- 6128 Apr, [facility] [address] [place] [id number] [place] [address], [place] [address]- 6072 Apr, [facility] [address] [place] [address]- 5769 Apr, [facility] [address] [place] [id number] [place] [address] 39302- 4088 Feb, [facility] [address] [place] [address] [id number] [place] [address], [place] [address]- 8217 Feb, [facility] [address] [place] [id number] [place] [address], [place] [address]- 2270 Feb, [facility] [address] [place] [id number] [place] [address], [place] [address]- 0680 Feb, [facility] [address] [place] [id number] [place] [address] 16908- 6886 Jan, [facility] [address] [place] [id number] [place] [address] 87154- 9598 Jan, Chronic hepatitis C without hepatic coma B18.2 ; Mood disorder F39 ; Encounter for immunization Z23 and Chronic viral hepatitis C B18.2 [facility] [address] [address]- 5570 Jan, [facility] [address] [address]- 0244 Jan, [facility] [address] [place] [address] [id number] [place] [address]- 3994 Dec, [facility] [address] [place] [id number] [place] [address] 47990- 5663 Dec, [facility] [address] [place] [address]- 1336 Nov, [facility] [address] [place] [id number] [address]- 8947 Nov, Weakness of both legs M62.81 [facility] [address] [place] [id number] [place] [address] 01840- 1074 Nov, [facility] [address] [place] [id number] [place] [address] 62226- 4836 Nov, [facility] [address] [place] [id number] [place] [address] 23977- 4746 Nov, [facility] [address] [place] [id number] [place] [address] 44983- 0715 Nov, Eczema, unspecified type L30.9 [facility] [address] [place] [id number] [place] [address] 44661- 4540 Nov, [facility] [address] [place] [id number] [place] [address] 43080- 4780 Nov, Eczema, unspecified type L30.9 ; Cessation of tobacco use in previous 12 months Z87.891 and Weakness of both legs M62.81 [facility] [id number] [place] [address] 63689- 1065 Oct, [facility] [address] [place] [id number] [place] [address] 00861- 0025 Oct, [facility] [address] [place] [id number] [place] [address] 91472- 3746 Oct, [facility] [address] [place] [id number] [place] [address] 21516- 9334 Oct, Chronic viral hepatitis C B18.2 [facility] [id number] [place] [address] 52866- 2143 Sep, [place] [address] [place] [id number] [place] [address] 79428- 7363 Sep, 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 and Generalized anxiety disorder F41.1 [facility] [address] [place] [id number] [place] [address] 97134- 2645 Sep, [facility] [address] [address]- 1809 August, [facility] [address] [address]- 2056 August, Hyperammonemia E72.20 [facility] [address] [address]- 9999 August, Hyperammonemia E72.20 [facility] [address] [place] [id number] [address]- 7453 August, Hyperammonemia E72.20 and Chronic hepatitis C without hepatic coma B18.2 [facility] [address] [place] [id number] [place] [address] 06279- 0937 August, Chronic viral hepatitis C B18.2 [facility] [address] [place] [id number] [place] [address] 79785- 0642 August, [facility] [address] [address]- 0348 Jul, Chronic viral hepatitis C B18.2 and Hyperammonemia E72.20 [facility] [address] [address]- 6235 Jul, Chronic viral hepatitis C B18.2 [facility] [address] [address]- 9848 Jul, [facility] [address] [address]- 4654 Jul, [facility] [address] [address]- 1523 Jun, [facility] [address] [address]- 3964 Jun, Chronic viral hepatitis C B18.2 and Hyperammonemia E72.20 [facility] [address] [address]- 7406 Jun, [facility] [address] [address]- 2770 18 Jun, 2015 [facility] [address] [address]- 7236 16 Jun, 2015 Chronic viral hepatitis C B18.2 [facility] [address] [address]- 5414 10 Jun, 2015 [facility] [address] [address]- 2330 07 Jun, 2015 Chronic viral hepatitis C B18.2 [facility] [id number] [place] [address] 24945- 4014 17 May, 2015 Hepatitis C, chronic B18.2 and Chronic viral hepatitis C B18.2 [facility] [address] [address]- 4756 May, [facility] [address] [address]- 1341 Apr, [facility] [address] [address]- 1911 Apr, Chronic viral hepatitis C B18.2 and Hyperammonemia E72.20 [facility] [address] [address]- 8134 Apr, Chronic viral hepatitis C B18.2 [facility] [address] [address]- 2438 Apr, Hyperammonemia E72.20 [facility] [address] [address]- 6626 Apr, [facility] [address] [address]- 9481 Apr, [facility] [address] [address]- 1652 Apr, Chronic hepatitis C without hepatic coma B18.2 ; Hyperammonemia E72.20 and Chronic viral hepatitis C B18.2 [facility] [address] [place] [id number] [place] [address] 93594- 0762 Mar, Shortness of breath R06.02 [facility] [address] [place] [id number] [place] [address] 73999- 1660 Mar, Mood disorder F39 and Major depressive disorder, recurrent episode, unspecified 296.30 [facility] [address] 32809- 7908 Mar, [facility] [address] 92381- 6829 Mar, [facility] [address] 70050- 1323 15 Mar, 2015 [facility] [address] 88578 -6536 Mar, Seasonal allergies J30.2 ; Shortness of breath R06.02 and Cough R05 [facility] [address] [place] [id number] [place] [address] 07607- 7488 Mar, Hyperammonemia E72.20 ; Mood disorder F39 and History of alcohol abuse Z87.898 [place] [address] [place] [id number] [place] [address] 36552- 7885 Mar, Hyperammonemia E72.20 [place] [address] [place] [id number] [place] [address] 13139- 0894 Mar, [facility] [address] [place] [id number] [place] [address] 96124- 2864 Feb, [facility] [address] 23227- 7910 Feb, [facility] [address] [place] [id number] [place] [address] 85659- 0403 Feb, Hyperammonemia E72.20 [place] [address] [place] [address]- 1059 Feb, [facility] [id number] [place] [address] 01525- 1562 Feb, [facility] [id number] [place] [address] 99591- 8686 Feb, [facility] [address] [place] [id number] [place] [address] 49231- 9339 Feb, [facility] [address] [place] [id number] [place] [address] 21595- 0532 Feb, Chronic viral hepatitis C B18.2 [facility] [address] [place] [id number] [place] [address] 48840- 6349 Feb, Chronic viral hepatitis C B18.2 [facility] [address] [place] [id number] [place] [address] 90425- 7246 Feb, [facility] [address] [place] [id number] [place] [address] 24971- 2232 Feb, Chronic viral hepatitis C B18.2 and Confusion R41.0 [facility] [address] [place] [id number] [place] [address] 72423- 1178 Feb, [facility] [id number] [place] [address] 75534- 3580 Jan, [facility] [id number] [place] [address] 67538- 5054 Jan, Confusion R41.0 [facility] [address] [address]- 5098 Jan, [facility] [address] [id number] [place] [address] 44378- 9835 Jan, [facility] [address] [address]- 0279 Jan, [facility] [id number] [place] [address] 21364- 9709 Jan, [facility] [address] [address]- 7125 Jan, Chronic viral hepatitis C B18.2 and 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 [facility] [address] [address]- 4528 Jan, [facility] [address] [id number] [place] [address] 20184- 9650 Jan, [facility] [address] [place] [id number] [place] [address] 55769- 9239 Jan, [facility] [address] [place] [id number] [place] [address] 81107- 7343 Jan, [facility] [address] [id number] [place] [address] 23480- 5760 Jan, Chronic viral hepatitis C B18.2 [facility] [id number] [place] [address] 59575- 7871 16 Jan, 2015 [facility] [id number] [place] [address] 77288- 0726 Jan, Back pain at L4-L5 level M54.5 and Confusion R41.0 [facility] [address] [address]- 9409 Jan, [facility] [id number] [place] [address] 92111- 4795 30 Dec, 2014 Chronic viral hepatitis C B18.2 and Flu vaccine need V04.81 [facility] [address] [address]- 6624 30 Dec, 2014 Chronic viral hepatitis C B18.2 [facility] [id number] [place] [address] 49813- 9050 28 Dec, 2014 [facility] [address] [address]- 0896 22 Dec, 2014 Polyuria 788.42 [facility] [id number] [place] [address]- 2850 Dec, Polyuria 788.42 ; Polydipsia 783.5 ; Dizziness 780.4 and Hepatitis C, chronic 070.54 [facility] [id number] [place] [address] 52293- 5514 10 Dec, 2014 Major depressive disorder, recurrent episode, unspecified 296.30 and Generalized anxiety disorder 300.02 [facility] [id number] [place] [address] 21675- 4250 Nov, [facility] [id number] [place] [address] 66226- 3516 Nov, [facility] [address] 80998- 8563 Nov, [facility] [address] 86248- 2234 Oct, [facility] [id number] [place] [address] 05980- 9306 Sep, [facility] [id number] [place] [address] 50695- 1240 August, Obsessive-compulsive disorders 300.3 ; Generalized anxiety disorder 300.02 and Major depressive disorder, recurrent episode, unspecified 296.30 [facility] [id number] [place] [address] 14320- 3544 August, Chronic hepatitis C without mention of hepatic coma 070.54 ; Hypertension 401.9 and Seasonal allergies 477.9 [facility] [id number] [place] [address] 98767- 2969 Jul, [facility] [address] 67476- 8531 Jul, [facility] [id number] [place] [address] 74403- 1697 Jun, [facility] [id number] [place] [address] 07843- 9515 Jun, [facility] [address] [id number] [place] [address]- 0308 May, [facility] [place] [facility] [address] [id number] [place] [address]- 9801 May, [facility] [place] [facility] [address] [id number] [place] [address]- 2406 May, [facility] [place] [facility] [address] [id number] [place] [address]- 6839 May, [facility] [place] [facility] [address] [id number] [place] [address]- 8182 Apr, [facility] [place] [facility] [address] [id number] [place] [address]- 1026 Apr, [facility] [place] [facility] [address] [id number] [place] [address]- 3489 Apr, [facility] [place] [facility] [address] [id number] [place] [address]- 0242 Apr, [facility] [place] [facility] [address] [id number] [place] [address]- 9462 Apr, [facility] [place] [facility] [address] [id number] [place] [address]- 8062 Apr, [facility] [place] [facility] [address] [id number] [place] [address]- 2062 Mar, [facility] [place] [facility] [address] [id number] [address]- 9165 Mar, [facility] [place] [facility] [address] [id number] [place] [address]- 6167 Mar, [facility] [place] [facility] [address] [id number] [place] [address]- 0636 Mar, [facility] [place] [facility] [address] [id number] [place] [address]- 4645 Mar, [facility] [place] [facility] [address] [id number] [place] [address]- 6482 17 Mar, 2014 [facility] [place] [facility] [address] [id number] [place] [address]- 9706 Mar, [facility] [place] [facility] [address] [id number] [place] 8354 Mar, [facility] [place] [facility] [address] [id number] [place] 5373 Mar, [facility] [place] [facility] [address] [id number] [place] [address]- 2359 Feb, [facility] [place] [facility] [address] [id number] [place] [address]- 5199 Feb, [facility] [place] [facility] [address] [id number] [place] [address]- 5833 Feb, [facility] [place] [facility] [address] [id number] [place] [address] Feb, [facility] [place] [facility] [address] [id number] [place] [address] Feb, [facility] [place] [facility] [address] [id number] [place] [address] Jan, [facility] [place] [facility] [address] [id number] [place] [address] Jan, [facility] [place] [facility] [address] [id number] [place] [address] Jan, [facility] [place] [facility] [address] [id number] [place] [address] Jan, [facility] [place] [facility] [address] [id number] [place] [address] Jan, [facility] [place] [facility] [address] [id number] [place] [address] Jan, [facility] [place] [facility] [address] [id number] [place] [address] Jan, [facility] [place] [facility] [address] [id number] [place] [address] Jan, [facility] [place] [facility] [address] [id number] [place] [address] Jan, [facility] [place] [facility] [address] [id number] [place] [address] Nov, [facility] [place] [facility] [address] [id number] [place] [address] Nov, [facility] [place] [facility] [address] [id number] [place] [address] Nov, [facility] [place] [facility] [address] [id number] [place] [address] Oct, [facility] [place] [facility] [address] [id number] [place] [address] Oct, [facility] [place] [facility] [address] [id number] [place] [address] Oct, [facility] [place] [facility] [address] [id number] [place] [address] Oct, [facility] [place] [facility] [address] [id number] [place] [address]- [address] Sep, [facility] [place] [facility] [address] [id number] [place] [address] Sep, [facility] [place] [facility] [address] [id number] [place] [address] Sep, [facility] [place] [facility] [address] [id number] [place] [address] Sep, [facility] [place] [facility] [address] [id number] [place] [address] Sep, [facility] [place] [facility] [address] [id number] [place] [address]- [address] Sep, [facility] [place] [facility] [address] [id number] [place] [address] August, [facility] [place] [facility] [address] [id number] [place] [address] August, [facility] [place] [facility] [address] [id number] [place] [address] Jul, [facility] [place] [facility] [address] [id number] [place] [address] Jul, [facility] [place] [facility] [address] [id number] [place] [address] Jul, [facility] [place] [facility] [address] [id number] [place] [address] Jul, [facility] [place] [facility] [address] [id number] [place] [address] Jul, [facility] [place] [facility] [address] [id number] [place] [address] Jul, [facility] [place] [facility] [address] [id number] [place] [address] Jul, [facility] [place] [facility] [address] [id number] [place] [address] Jul, [facility] [place] [facility] [address] [id number] [place] [address] Jul, [facility] [place] [facility] [address] [id number] [place] [address] Jul, [facility] [place] [facility] [address] [id number] [place] [address] Jun, [facility] [place] [facility] [address] [id number] [place] [address] Jun, [facility] [place] [facility] [address] [id number] [place] [address] Jun, [facility] [place] [facility] [address] [id number] [place] [address] Jun, [facility] [place] [facility] [address] [id number] [place] [address] May, 2013 [facility] [place] [facility] [address] [id number] [place] [address] May, 2013 [facility] [place] [facility] [address] [id number] [place] [address] May, [facility] [place] [facility] [address] [id number] [place] [address] May, 2013 [facility] [place] [facility] [address] [id number] [place] [address] May, [facility] [place] [facility] [address] [id number] [place] [address] 10 May, 2013 [facility] [place] [facility] [address] [id number] [place] [address] 16 Mar, 2013 [facility] [place] [facility] [address] [id number] [place] [address] 16 Mar, 2013 [facility] [place] [facility] [address] [id number] [place] [address] 254 16 Mar, 2013 [facility] [place] [facility] [address] [id number] [place] [address] 16 Mar, 2013 [facility] [place] [facility] [address] [facility] [id number] [place] [address] 2541 16 Mar, 2013 [facility] [place] [facility] [address] [id number] [place] [address] Mar, [facility] [place] [facility] [address] [id number] [place] [address] 25[address] Feb, [facility] [place] [facility] [address] [id number] [place] [address] 2546 Feb, [facility] [place] [facility] [address] [id number] [place] [address] 2546 19 Feb, 2013 [facility] [place] [facility] [address] [id number] [place] [address] Feb, [facility] [place] [facility] [address] [id number] [place] [address] 39[address] Feb, [facility] [place] [facility] [address] [id number] [place] [address] 12 Feb, 2013 [facility] [place] [facility] [address] [id number] [place] [address] Feb, [facility] [place] [facility] [address] [id number] [place] [address] 07 Feb, 2013 [facility] [place] [facility] [address] [id number] [place] [address] 18 Jan, 2013 [facility] [place] [facility] [address] [id number] [place] [address] 18 Jan, 2013 [facility] [place] [facility] [address] [id number] [place] [address] 17 Jan, 2013 [facility] [place] [facility] [address] [id number] [place] [address] 16 Jan, 2013 [facility] [place] [facility] [address] [id number] [place] [address] 16 Jan, 2013 [facility] [place] [facility] [address] [id number] [place] [address] 14 Jan, 2013 [facility] [place] [facility] [address] [id number] [place] [address] 14 Jan, 2013 [facility] [place] [facility] [address] [id number] [place] [address] 11 Jan, 2013 [facility] [place] [facility] [address] [id number] [place] [address] 2846 11 Jan, 2013 [facility] [place] [facility] [address] [id number] [place] [address]69 10 Jan, 2013 [facility] [place] [facility] [address] [id number] [place] [address] 27 Dec, 2012 [facility] [place] [facility] [address] [id number] [place] [address] Dec, [facility] [place] [facility] [address] [id number] [place] [address] 134[address] Dec, [facility] [place] [facility] [address] [id number] [place] [address] Nov, [facility] [place] [facility] [address] [id number] [place] [address] Nov, [facility] [place] [facility] [address] [id number] [place] [address] Nov, [facility] [place] [facility] [address] [id number] [place] [address] Nov, [facility] [place] [facility] [address] [id number] [place] [address] Nov, [facility] [place] [facility] [address] [id number] [place] [address]198 Nov, [facility] [place] [facility] [address] [id number] [place] [address] Nov, [facility] [place] [facility] [address] [id number] [place] [address] Nov, [facility] [place] [facility] [address] [id number] [place] [address] Nov, [facility] [place] [facility] [address] [id number] [place] [address] Nov, [facility] [place] [facility] [address] [id number] [place] [address] Oct, [facility] [place] [facility] [address] [id number] [place] [address] 7360 Oct, [facility] [place] [facility] [address] [id number] [place] [address] Oct, [facility] [place] [facility] [address] [id number] [place] [address] Oct, [facility] [place] [facility] [address] [id number] [place] [address] Oct, [facility] [address] [id number] [place] [address] Oct, [facility] [address] [id number] [place] [address] Oct, [facility] [address] [id number] [place] [address] Oct, [facility] [address] [id number] [place] [address] Sep, [facility] [address] [id number] [place] [address]- [address]691 Sep, [facility] [address] [id number] [place] [address] 8960 Sep, [facility] [address] [id number] [place] [address]- [address] Sep, [facility] [address] [id number] [place] [address] 0267 August, [facility] [address] [id number] [place] [address]- 1096 August, [facility] [address] [id number] [place] [address] August, [facility] [address] [place] [id number] Jul, [facility] [address] [place] [id number] Jul, [facility] [address] [id number] [place] [address]46 Jun, [facility] [address] [id number] [place] [address]- [address] May, [facility] [address] [id number] [place] [address]- [address] May, [facility] [address] [id number] [place] [address]- 6[address] Apr, [facility] [address] [id number] [place] [address]- 3[address] Feb, [facility] [address] [id number] [place] [address]- 3516 Feb, [facility] [address] [id number] [place] [address]- [address]008 Jan, [facility] [address] [id number] [place] [address]- 4621 Jan, [facility] [address] [id number] [place] [address]- 65[address] Jan, [facility] [address] [id number] [place] [address]- 7486 Jan, [facility] [address] [id number] [place] [address]- 3[address] Jan, [facility] [address] [id number] [place] [address]- 1750 Dec, [facility] [address] [id number] [place] [address]- 78[address] Dec, [facility] [address] [id number][place] [id number] Nov, [facility] [address] [id number] [place] [address]- 65[address] Nov, [facility] [address] [id number] [place] [address]- 49[address] Nov, [facility] [place] [facility] [address] [id number] [place] [address]- 9706 Nov, [facility] [place] [facility] [address] [id number] [place] [address]- 4136 August, [facility] [address] [id number] [place] [address]- 1595 August, [facility] [address] [facility] [id number] [place] [address] August, [facility] [address] [facility] [id number] [place] [address] Jul, [facility] [address] [facility] [id number] [place] [address]- [address]68 May, [facility] [address] [facility] [id number] [place] [address] May, [facility] [address] [facility] [id number] [place] [address]- 9984 May, [facility] [address] [facility] [id number] [place] [address] Mar, [facility] [id number] [address] Jan, [facility] [id number] [place] [address]- [address] Jan, [facility] [id number] [address]- [address] Oct, [facility] [id number] [place] [address] August, [facility] [address] [id number] [place] [address] Jan, [facility] [address] [id number] [place] [address]- 25[address] Jan, [facility] [address] [id number] [place] [address]- [address] Jan, [facility] [address] [id number] [place] [address]- [address] Jan, IMMUNIZATIONS No Known Immunizations SOCIAL HISTORY Never Assessed REASON FOR VISIT Routine nurse call PLAN OF CARE VITAL SIGNS MEDICATIONS Unknown [...]
--- OUTSIDE RECORDS SUMMARY | 2018-08-15 15:25 | XMS REPORT ---
Author Author ROSIO IRBY Organization [facility] Address [address] [place] [address] Care Team Providers Care Director Epidemiology Name Role Phone ROSIO IRBY Unavailable PROBLEMS Type Condition ICD9-CM Code [id number] Code Onset Dates Condition Status SNOMED Code Problem History of alcohol abuse Z87.898 Active 287835246 Problem Allergic rhinitis, unspecified allergic rhinitis type J30.9 Active 43049992 Problem Chronic hepatitis C without hepatic coma B18.2 Active 344275521 Problem Mood disorder F39 Active 67874247 Problem Other chronic pain G89.29 Active 95274399 Problem Mild episode of recurrent major depressive disorder F33.0 Active 227326907 Problem Obsessive compulsive disorder F42 Active 286155240 Problem Hyperammonemia E72.20 Active 3076617 Problem Generalized anxiety disorder F41.1 Active 28373859 Problem Hypertension, benign I10 Active 66497434 ALLERGIES No Known Allergies ENCOUNTERS Encounter Location Date Diagnosis [place] [id number] [place] [address] 40619- 5058 Feb, Generalized anxiety disorder F41.1 ; Eczema of both hands L30.9 and Encounter for immunization Z23 [facility] [id number] [place] [address] 40572- 3292 Feb, Chronic hepatitis C without hepatic coma B18.2 [facility] [id number] [place] [address] 19574- 6618 Jan, Mood disorder F39 [facility] [id number] [place] [address] 61151- 5511 Jan, Chronic hepatitis C without hepatic coma B18.2 [facility] [id number] [place] [address] 66772- 5603 Dec, Mild episode of recurrent major depressive disorder F33.0 ; Other chronic pain G89.29 ; Pain in left shoulder M25.512 and Pain in right shoulder M25.511 [facility] [id number] [place] [address] 99091- 8781 04 Dec, 2017 Chronic hepatitis C without hepatic coma B18.2 [facility] [id number] [place] [address] 81176- 8666 Nov, Chronic hepatitis C without hepatic coma B18.2 [facility] [id number] [place] [address] 36084- 2424 Oct, Bronchitis J40 [facility] [id number] [place] [address] 26468- 2762 Oct, Chronic hepatitis C without hepatic coma B18.2 and Cough R05 [facility] [id number] [place] [address] 63838- 1263 Sep, Chronic hepatitis C without hepatic coma B18.2 [facility] [id number] [place] [address] 21512- 2994 August, Chronic hepatitis C without hepatic coma B18.2 [facility] [id number] [place] [address] 58635- 5827 Jul, Chronic hepatitis C without hepatic coma B18.2 [facility] [id number] [place] [address] 40489- 1994 Jul, Generalized anxiety disorder F41.1 ; Mood disorder F39 and History of hepatitis C Z86.19 [facility] [id number] [place] [address] 63279- 0496 Jul, Chronic hepatitis C without hepatic coma B18.2 [facility] [id number] [place] [address] 56829- 3778 Jun, Chronic hepatitis C without hepatic coma B18.2 [facility] [id number] [place] [address] 03087- 2081 Jun, [facility] [id number] [place] [address] 92929- 7478 13 May, 2017 Chronic hepatitis C without hepatic coma B18.2 [facility] [id number] [place] [address] 12621- 6501 May, Hypertension, benign I10 [facility] [id number] [place] [address] 64262- 5131 Apr, Chronic hepatitis C without hepatic coma B18.2 [place] [id number] [place] [address] 99624- 2302 Apr, Hypertension, benign I10 [place] [id number] [place] [address] 85457- 8863 Mar, Chronic hepatitis C without hepatic coma B18.2 [place] [id number] [place] [address] 64354- 8037 Mar, Hypertension, benign I10 [place] [id number] [place] [address] 28288- 5500 Mar, Hypertension, benign I10 ; Encounter for immunization Z23 and Strain of right Achilles tendon, initial encounter S86.011A [place] [id number] [place] [address] 21587- 6593 Feb, Chronic hepatitis C without hepatic coma B18.2 [place] [id number] [place] [address] 43593- 6271 Jan, Chronic hepatitis C without hepatic coma B18.2 [facility] [id number] [place] [address] 11406 -0382 Jan, Toe pain, right M79.674 and Cellulitis of foot, right L03.115 [facility] [id number] [place] [address] 10787- 3340 Dec, Chronic hepatitis C without hepatic coma B18.2 [facility] [id number] [place] [address] 71321- 6058 Nov, Chronic hepatitis C without hepatic coma B18.2 and Eczema of both hands L30.9 [facility] [address] [address] 1040 Nov, [facility] [address], [place] [address]- 6046 Oct, [facility] [address], [place] [address]- 6976 Sep, [facility] [id number] [place] [address] 08604- 9203 August, [facility] [address], [place] [address]- 8495 August, [facility] [id number] [place] [address] 86864- 5282 Jul, [facility] [address], [place] [address]- 4709 Jul, [facility] [address], [place] [address]- 5044 Jun, [facility] [address], [place] [address]- 0974 Jun, [facility] [address], [place] [address]- 3522 May, [facility] [address], [place] [address]- 7986 Apr, Chronic hepatitis C without hepatic coma B18.2 ; Hyperglycemia R73.9 and Hypertension, benign I10 [facility] [address], [place] [address] 2546 Apr, Chronic hepatitis C without hepatic coma B18.2 ; Mood disorder F39 ; Hypertension, benign I10 and Hyperglycemia R73.9 [facility] [id number] [address]- 9826 Apr, [facility] [address], [place] [address]- 7049 Apr, [facility] [address], [place] [address]- 4561 Apr, [facility] [id number] [place] [address] 14603- 9290 Feb, [facility] [id number] [place] [address] 46493- 8437 Feb, [facility] [id number] [place] [address] 73894- 2416 Feb, [facility] [id number] [place] [address] 33178- 0150 Feb, [facility] [id number] [place] [address] 64648- 0796 Jan, [facility] [id number] [place] [address] 72939- 4113 Jan, Chronic hepatitis C without hepatic coma B18.2 ; Mood disorder F39 ; Encounter for immunization Z23 and Chronic viral hepatitis C B18.2 [facility] [address], [place] [address]- 1817 Jan, [facility] [id number] [place] [address] 23516- 5774 Jan, [facility] [address], [place] [address]- 7544 Dec, [facility] [address], [place] [address]- 0542 Dec, [facility] [address], [place] [address]- 6466 Nov, [facility] [id number] [place] [address] 26929- 4454 Nov, Weakness of both legs M62.81 [facility] [address], [place] [address]- 8287 Nov, [facility] [id number] [address]- 0973 Nov, [facility] [id number] [place] [address] 43600- 8906 Nov, [facility] [id number] [place] [address] 24231- 3276 Nov, Eczema, unspecified type L30.9 [facility] [id number] [place] [address] 81543- 9545 Nov, [facility] [id number] [place] [address] 11287- 3781 Nov, Eczema, unspecified type L30.9 ; Cessation of tobacco use in previous 12 months Z87.891 and Weakness of both legs M62.81 [facility] [id number] [place] [address] 47672- 8092 Oct, [facility] [id number] [place] [address] 61397- 9943 Oct, [facility] [id number] [place] [address] 02248- 4643 Oct, [facility] [id number] [place] [address] 81897- 5542 Oct, Chronic viral hepatitis C B18.2 [facility] [id number] [place] [address] 39244- 2226 Sep, [facility] [id number] [place] [address] 78068- 7567 Sep, 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 and Generalized anxiety disorder F41.1 [facility] [id number] [place] [address] 70271- 9557 Sep, [facility] [id number] [place] [address] 62672- 3790 August, [facility] [id number] [place] [address] 35062- 8876 August, Hyperammonemia E72.20 [facility] [address], [place] [address]- 7117 August, Hyperammonemia E72.20 [facility] [address], [place] [address]- 8425 August, Hyperammonemia E72.20 and Chronic hepatitis C without hepatic coma B18.2 [facility] [address], [place] [address]- 3071 August, Chronic viral hepatitis C B18.2 [facility] [address], [place] [address]- 7073 August, [facility] [id number] [place] [address] 95109- 3750 Jul, Chronic viral hepatitis C B18.2 and Hyperammonemia E72.20 [facility] [address], [place] [address]- 4232 Jul, Chronic viral hepatitis C B18.2 [facility] [address], [place] [address]- 5727 Jul, [facility] [address], [place] [address]- 7279 Jul, [facility] [address], [place] [address]- 9771 28 Jun, 2015 [facility] [address], [place] [address]- 5080 23 Jun, 2015 Chronic viral hepatitis C B18.2 and Hyperammonemia E72.20 [facility] [address] [address] 9608 21 Jun, 2015 [facility] [address], [place] [address]- 7712 18 Jun, 2015 [facility] [address], [place] [address]- 0358 16 Jun, 2015 Chronic viral hepatitis C B18.2 [facility] [address], [place] [address]- 6940 Jun, [facility] [id number] [place] [address] 09893- 2135 07 Jun, 2015 Chronic viral hepatitis C B18.2 [facility] [id number] [place] [address] 65072- 1575 17 May, 2015 Hepatitis C, chronic B18.2 and Chronic viral hepatitis C B18.2 [facility] [address], [place] [address]- 9358 May, [facility] [id number] [place] [address] 51530- 5891 Apr, [facility] [id number] [place] [address] 21096- 3364 Apr, Chronic viral hepatitis C B18.2 and Hyperammonemia E72.20 [facility] [address], [place] [address]- 5101 Apr, Chronic viral hepatitis C B18.2 [facility] [id number] [place] [address] 41715- 9976 Apr, Hyperammonemia E72.20 [facility] [address], [place] [address]- 4884 Apr, [facility] [id number], [place] [address]- 7447 Apr, [facility] [address] [place] [address] 73134- 6609 Apr, Chronic hepatitis C without hepatic coma B18.2 ; Hyperammonemia E72.20 and Chronic viral hepatitis C B18.2 [facility] [address], [place] [address]- 4760 Mar, Shortness of breath R06.02 [facility] [id number] [place] [address] 01152- 1577 31 Mar, 2015 Mood disorder F39 and Major depressive disorder, recurrent episode, unspecified 296.30 [facility] [id number] [place] [address] 24194- 3128 28 Mar, 2015 [facility] [id number] [place] [address] 70202- 1791 18 Mar, 2015 [facility] [id number] [place] [address] 01114- 3408 15 Mar, 2015 [facility] [id number] [place] [address] 46387 -8001 11 Mar, 2015 Seasonal allergies J30.2 ; Shortness of breath R06.02 and Cough R05 [facility] [id number] [place] [address] 77559- 8692 Mar, Hyperammonemia E72.20 ; Mood disorder F39 and History of alcohol abuse Z87.898 [facility] [id number] [place] [address] 48507- 5085 Mar, Hyperammonemia E72.20 [facility] [id number] [place] [address] 32846- 4104 Mar, [facility] [id number] [place] [address] 33815- 7965 Feb, [facility] [id number] [place] [address] 94735- 5315 Feb, [facility] [id number] [place] [address] 73840- 2196 Feb, Hyperammonemia E72.20 [facility] [id number] [place] [address] 79132- 4966 Feb, [facility] [id number] [place] [address] 85647- 5278 Feb, [facility] [address] [place] [address]- 5460 Feb, [facility] [id number] [place] [address] 76431- 3828 Feb, [facility] [id number] [place] [address] 81211- 4145 Feb, Chronic viral hepatitis C B18.2 [facility] [id number] [place] [address] 78049- 0346 Feb, Chronic viral hepatitis C B18.2 [facility] [id number] [place] [address] 65576- 5315 Feb, [facility] [id number] [place] [address] 29470- 9320 Feb, Chronic viral hepatitis C B18.2 and Confusion R41.0 [facility] [id number] [place] [address] 85915- 2589 Feb, [facility] [address] [place] [address] 83610- 2678 Jan, [facility] [id number] [place] [address] 08511- 2200 Jan, Confusion R41.0 [facility] [id number] [place] [address] 93887- 3747 Jan, [facility] [address] [place] [address] 15624- 0741 Jan, [facility] [address] [place] [address] 18245 2543 Jan, [facility] [id number] [place] [address] 84189- 9021 Jan, [facility] [id number] [place] [address] 66267 2548 Jan, Chronic viral hepatitis C B18.2 and 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 [facility] [id number] [place] [address] 71251- 8310 Jan, [facility] [id number] [place] [address] 88587- 3388 Jan, [facility] [id number] [place] [address] 86392- 2679 Jan, [facility] [id number] [place] [address] 32885- 4312 Jan, [facility] [id number] [place] [address] 09214- 3291 Jan, Chronic viral hepatitis C B18.2 [facility] [address] 94867- 9667 16 Jan, 2015 [facility] [id number] [place] [address] 53989- 6051 14 Jan, 2015 Back pain at L4-L5 level M54.5 and Confusion R41.0 [facility] [id number] [place] [address] 83643- 2878 Jan, [facility] [id number] [place] [address] 29271- 4465 30 Dec, 2014 Chronic viral hepatitis C B18.2 and Flu vaccine need V04.81 [facility] [id number] [place] [address] 14447- 1391 30 Dec, 2014 Chronic viral hepatitis C B18.2 [facility] [id number] [place] [address] 80503- 5626 28 Dec, 2014 [facility] [id number] [place] [address] 40974- 2539 22 Dec, 2014 Polyuria 788.42 [facility] [id number] [place] [address] 07342- 6336 Dec, Polyuria 788.42 ; Polydipsia 783.5 ; Dizziness 780.4 and Hepatitis C, chronic 070.54 [facility] [address] [place] [address]- 7853 Dec, Major depressive disorder, recurrent episode, unspecified 296.30 and Generalized anxiety disorder 300.02 [facility] [address], [place] [address]- 7735 Nov, [facility] [address], [place] [address]- 8694 Nov, [facility] [id number] [place] [address] 86983- 9199 Nov, [facility] [address] [place] [address] 395630- 1034 Oct, [facility] [id number] [place] [address] 41921- 7826 Sep, [facility] [id number] [address]- 6477 August, Obsessive-compulsive disorders 300.3 ; Generalized anxiety disorder 300.02 and Major depressive disorder, recurrent episode, unspecified 296.30 [facility] [address], [place] [address]- 4768 August, Chronic hepatitis C without mention of hepatic coma 070.54 ; Hypertension 401.9 and Seasonal allergies 477.9 [facility] [address], [place] [address]- 3208 Jul, [facility] [address], [place] [address]- 6237 Jul, [facility] [address], [place] [address]- 2586 Jun, [facility] [id number] 2664 Jun, [facility] [address], [place] [address]- 5904 May, [facility] [id number], [place] [address]- 5139 May, [facility] [place] [facility] [address] [id number] [place] [address]- 1926 May, [facility] [place] [facility] [address] [id number] [place] [address]- 5536 May, [facility] [place] [facility] [address] [id number] [place] [address]- 9104 Apr, [facility] [place] [facility] [address] [id number] [place] [address]- 9349 Apr, [facility] [place] [facility] [address] [id number] [place] [address]- 2621 Apr, [facility] [place] [facility] [address] [id number] [place] [address]- 4454 Apr, [facility] [place] [facility] [address] [id number] [place] [address]- 9778 Apr, [facility] [place] [facility] [address] [id number] [place] [address]- 1621 Apr, [facility] [place] [facility] [address] [id number] [place] [address]- 2709 Mar, [facility] [place] [facility] [address] [id number] [place] [address]- 3378 Mar, [facility] [place] [facility] [address] [id number] [place] [address]- 0630 Mar, [facility] [place] [facility] [address] [id number] [place] [address]- 2318 Mar, [facility] [place] [facility] [address] [id number] [place] [address]- 3039 Mar, [facility] [place] [facility] [address] [id number] [place] [address]- 8066 Mar, [facility] [place] [facility] [address] [id number] [place] [address]- 6929 Mar, [facility] [place] [facility] [address] [id number] [place] [address]- 5271 Mar, [facility] [place] [facility] [address] [id number] [place] 9367 Mar, [facility] [place] [facility] [address] [id number] [place] [address]- 0113 Feb, [facility] [place] [facility] [address] [id number] [place] [address]- 9316 Feb, [facility] [place] [facility] [address] [id number] [place] [address]- 1951 Feb, [facility] [place] [facility] [address] [id number] [place] [address]- 4573 Feb, [facility] [place] [facility] [address] [id number] [place] [address]- 55[address] Feb, [facility] [place] [facility] [address] [id number] [place] [address] Jan, [facility] [place] [facility] [address] [id number] [place] [address] Jan, [facility] [place] [facility] [address] [id number] [place] [address] Jan, [facility] [place] [facility] [address] [facility] [id number] [place] [address] Jan, [facility] [place] [facility] [address] [id number] [place] [address] Jan, [facility] [place] [facility] [address] [id number] [place] [address] Jan, [facility] [place] [facility] [address] [id number] [place] [address] Jan, [facility] [place] [facility] [address] [id number] [place] [address] Jan, [facility] [place] [facility] [address] [id number] [place] [address] [address] Jan, [facility] [place] [facility] [address] [id number] [place] [address] Nov, [facility] [place] [facility] [address] [id number] [place] [address] Nov, [facility] [place] [facility] [address] [id number] [place] [address] Nov, [facility] [place] [facility] [address] [id number] [place] [address] Oct, [facility] [place] [facility] [address] [id number] [place] [address] Oct, [facility] [place] [facility] [address] [id number] [place] [address] Oct, [facility] [place] [facility] [address] [id number] [place] [address] Oct, [facility] [place] [facility] [address] [id number] [place] [address] Sep, [facility] [place] [facility] [address] [id number] [place] [address] Sep, [facility] [place] [facility] [address] [id number] [place] [address] Sep, [facility] [place] [facility] [address] [id number] [place] [address] Sep, [facility] [place] [facility] [address] [id number] [place] [address] Sep, [facility] [place] [facility] [address] [id number] [place] [address] Sep, [facility] [place] [facility] [address] [id number] [place] [address] August, [facility] [place] [facility] [address] [id number] [place] [address] August, [facility] [place] [facility] [address] [id number] [place] [address] Jul, [facility] [place] [facility] [address] [id number] [place] [address] Jul, [facility] [place] [facility] [address] [id number] [place] [place] [address] Jul, [facility] [place] [facility] [address] [id number] [place] [address] Jul, [facility] [place] [facility] [address] [id number] [place] [address] Jul, [facility] [place] [facility] [address] [id number] [place] [address] Jul, [facility] [place] [facility] [address] [id number] [place] [address] Jul, [facility] [place] [facility] [address] [id number] [place] [address] Jul, [facility] [place] [facility] [address] [id number] [place] [address] Jul, [facility] [place] [facility] [address] [id number] [place] [address] Jul, [facility] [place] [facility] [address] [id number] [place] [address] Jun, [facility] [place] [facility] [address] [id number] [place] [address] Jun, [facility] [place] [facility] [address] [id number] [place] [address] Jun, [facility] [place] [facility] [address] [id number] [place] [address] Jun, [facility] [place] [facility] [address] [id number] [place] [address] May, [facility] [place] [facility] [address] [id number] [place] [address] 6254 May, [facility] [place] [facility] [address] [id number] [place] [address] 9[address] 12 May, 2013 [facility] [place] [facility] [address] [id number] [place] [address]80 12 May, 2013 [facility] [place] [facility] [address] [id number] [place] [address] 1376 10 May, 2013 [facility] [place] [facility] [address] [id number] [place] [address] 10 May, 2013 [facility] [place] [facility] [address] [id number] [place] [address] 9[address] 16 Mar, 2013 [facility] [place] [facility] [address] [id number] [place] [address] 60[address] Mar, [facility] [place] [facility] [address] [id number] [place] [address] Mar, [facility] [place] [facility] [address] [id number] [place] [address] 9426 Mar, [facility] [place] [facility] [address] [id number] [place] [address] 8583 Mar, [facility] [place] [facility] [address] [id number] [place] [address] 3054 Mar, [facility] [place] [facility] [address] [id number] [place] [address] 3163 Feb, [facility] [place] [facility] [address] [id number] [place] [address]- 4152 Feb, [facility] [place] [facility] [address] [id number] [place] [address] 6588 Feb, [facility] [place] [facility] [address] [id number] [place] [address]- 8068 Feb, [facility] [place] [facility] [address] [id number] [place] [address] Feb, [facility] [place] [facility] [address] [id number] [place] [address]- 5217 12 Feb, 2013 [facility] [place] [facility] [address] [id number] [place] [address]- 7948 07 Feb, 2013 [facility] [place] [facility] [address] [id number] [place] [address]- 4[address] 07 Feb, 2013 [facility] [place] [facility] [address] [id number] [place] [address]- 6611 18 Jan, 2013 [facility] [place] [facility] [address] [id number] [place] [address]- 1320 18 Jan, 2013 [facility] [place] [facility] [address] [id number] [place] [address] 8448 17 Jan, 2013 [facility] [place] [facility] [address] [id number] [place] [address] 9143 16 Jan, 2012 [facility] [place] [facility] [address] [id number] [place] [address]- 5814 16 Jan, 2013 [facility] [place] [facility] [address] [id number] [place] [address]- 9963 14 Jan, 2013 [facility] [place] [facility] [address] [id number] [place] [address]- 3298 14 Jan, 2013 [facility] [place] [facility] [address] [id number] [place] [address] 3368 11 Jan, 2013 [facility] [place] [facility] [address] [id number], [place] [address] 11 Jan, 2013 [facility] [place] [facility] [address] [id number], [place] [address] 10 Jan, 2012 [facility] [place] [facility] [address] [id number] [place] [address]- 5206 27 Dec, 2012 [facility] [place] [facility] [address] [id number] [place] [address]- 8324 18 Dec, 2012 [facility] [place] [facility] [address] [id number] [place] [address] 18 Dec, 2012 [facility] [place] [facility] [address] [id number] [place] [address] 9491 Nov, [facility] [address] [id number] [place] [address] 2532 Nov, [facility] [place] [facility] [address] [id number] [place] [address]- 2749 Nov, [facility] [address] [id number] [place] [address]- 2009 Nov, [facility] [place] [facility] [address] [id number] [place] [address]- 9573 Nov, [facility] [place] [facility] [address] [id number] [place] [address]- 1028 Nov, [facility] [address] [id number] [place] [address]- 3934 Nov, [facility] [address] [id number] [place] [address]- 8944 Nov, [facility] [address] [id number] [place] [address]- 0224 Nov, [facility] [place] [facility] [address] [id number] [place] [address] 46[address] Nov, [facility] [address] [id number] [place] [address] 7408 Oct, [facility] [place] [facility] [address] [id number] [place] [address]- 2542 Oct, [facility] [place] [facility] [address] [id number] [place] [address]- 8684 Oct, [facility] [place] [facility] [address] [id number] [place] [address]- 3668 Oct, [facility] [place] [facility] [address] [id number] [place] [address]- 8201 Oct, [facility] [place] [facility] [address] [id number] [place] [address]- 9302 Oct, [facility] [address] [id number] [place] [address]- 4079 Oct, [facility] [address] [id number] [place] [address]- 9015 Oct, [facility] [address] [id number] [facility] [place] [address]- [address] Sep, [facility] [address] [id number] [place] [address]- 7884 Sep, [facility] [address] [id number] [place] [address]- 9318 Sep, [facility] [address] [id number] [place] [address]- 3274 Sep, [facility] [address] [id number] [place] [address]- 8258 August, [facility] [address] [id number] [place] [address]- 4045 August, [facility] [address] [id number] [place] [address]- 8289 August, [facility] [address] [id number] Jul, [facility] [address] [id number] Jul, [facility] [address] [id number] [place] [address]- 4294 Jun, [facility] [address] [id number] [place] [address]- 4183 May, [facility] [place] [facility] [address] [id number] [place] [address]- 5307 May, [facility] [place] [facility] [address] [id number] [place] [address]- 6225 Apr, [facility] [place] [facility] [address] [id number] [place] [address]- 0166 Feb, [facility] [place] [facility] [address] [id number] [place] [address]- 2546 Feb, [facility] [place] [facility] [address] [id number] [place] [address]- 1376 Jan, [facility] [place] [facility] [address] [id number] [place] [address] 2546 Jan, [facility] [place] [facility] [address] [id number] [place] [address]- 7366 Jan, [facility] [place] [facility] [address] [id number] [place] [address]- 2546 Jan, [facility] [place] [facility] [address] [id number] [place] [address]- 8256 Jan, [facility] [place] [facility] [address] [id number] [place] [address]- 6666 Dec, [facility] [address] [id number] [place] [address]- 6376 Dec, [facility] [address] [id number] [place] [id number] Nov, [facility] [place] [facility] [address] [id number] [place] [address]- 0640 Nov, [facility] [address] [id number] [place] [address]- 0716 Nov, [facility] [place] [facility] [address] [id number] [place] [address]- 3576 Nov, [facility] [place] [facility] [address] [id number] [place] [address]- 6826 August, [facility] [place] [facility] [address] [id number] [place] [address]- 3576 August, [facility] [place] [facility] [address] [id number] [place] [address]- 2016 August, [facility] [place] [facility] [address] [id number] [place] [address]- 5756 Jul, [facility] [address] [id number] [address] May, [facility] [address], [place] [address] May, [facility] [address] [id number], [place] [address] 2546 May, [facility] [address], [place] [address] 2546 Mar, [facility] [address], [place] [address] 2545 Jan, [facility] [address], [place] [address] 2216 Jan, [facility] [address], [place] [address] 4847 Oct, [facility] [address], [place] [address] 2546 August, [facility] [address], [place] [address] 6171 Jan, [facility] [address], [place] [address] 8256 Jan, [facility] [address], [place] [address]- [address] Jan, [facility] [address] [id number] [address] 3526 Jan, IMMUNIZATIONS Vaccine Route Administration Date Status FLULAVAL QUAD 0.5ML (6 MO & UP) 2018 IM Intramuscular Feb 15, 2018 Administered TDAP (BOOSTRIX) IM Intramuscular Feb 15, 2018 Administered SOCIAL HISTORY Never Assessed REASON FOR VISIT [facility] Follow up, PT reports he went into the ER 02/08 due to being lethargic and nausea. PT states they gave him bactrim. -Mor [facility] PLAN OF CARE Activity Details Pending Test PDM - 09 PANEL (PROFILE 1) VITAL SIGNS Height 72 in 2018-02-15 Weight 233.8 lbs 2018-02-15 Temperature 97.7 degrees Fahrenheit 2018-02-15 Heart Rate 64 bpm 2018-02-15 Respiratory Rate 20 2018-02-15 Oximetry 95 % 2018-02-15 BMI 31.71 kg/m2 2018-02-15 Blood pressure systolic 122 mmHg 2018-02-15 Blood pressure diastolic 70 mmHg 2018-02-15 MEDICATIONS Medication Instructions Dosage Frequency Start Date End Date Duration Status Risperdal 1 MG Orally twice a day 1 tablet 12h Jan, 90 days Active Centrum Adults Active Xanax 2 MG Orally 4 times a day 1 tablet 6h Jun, 28 days Active Chantix 1 MG Orally Twice a day 1 tablet 12h Feb, August, 30 day(s) Active Albuterol Sulfate HFA 108 (90 Base) MCG/ACT Inhalation every 4 hrs 2 puffs as needed 4h Mar, Active Propranolol HCl 40 mg TAKE 1 TABLET THREE TIMES DAILY 12h Active Tessalon Perles 100 mg Orally Three times a day 1 capsule as needed 8h Oct, Active Aspirin 81 MG Orally Once a day 1 tablet 24h May, Active Gabapentin 600 MG Orally 3 times a day 1 tablet 8h Active Ketoconazole 2 % Externally no more than twice a day 1 application to affected area Nov, Active Lisinopril-Hydrochlorothiazide 20-25 MG Orally Once a day 1 tablet 24h Mar, Active Potassium Chloride ER 10 MEQ TAKE 1 CAPSULE EVERY DAY 90 Active Triamcinolone Acetonide 0.1 % Externally Twice a day 1 application to affected area 12h Nov, Active Pepcid 20 mg Orally Once a day 1 tablet at bedtime 24h Active Lexapro 20 mg Orally Once a day 1 tablet 24h Active Meloxicam 7.5 mg Orally 2 times a day 1 tablet 12h Dec, Apr, 30 day(s) Active Mirtazapine 15 MG TAKE 1 TABLET AT BEDTIME 90 Active RESULTS No Results PROCEDURES Procedure Date Ordered Result Body Site LAB [facility] Feb 15, 2018 [facility] VISIT ESTABLISHED PATIENT Feb 15, 2018 IMMUNIZATION ADMIN, EACH ADD (please include units) Feb 15, 2018 SINGLE IMMUNIZATION ADMIN Feb 15, 2018 FLULAVAL QUAD 0.5ML (6 MO & UP) 2017Feb 15, 2018 TDAP (BOOSTRIX) Feb 15, 2018 ADMN FLU VAC NO FEE SCHED SAME DAY Feb 15, 2018 INSTRUCTIONS MEDICATIONS ADMINISTERED No Known Medications [...]
--- OUTSIDE RECORDS SUMMARY | 2018-08-15 15:26 | XMS REPORT ---
Author Author ROSIO IRBY Organization [facility] Address [address] [place] [address] Care Team Providers Care Stage Producer Name Role Phone ROSIO IRBY Unavailable PROBLEMS Type Condition ICD9-CM Code SUN49-HU Code Onset Dates Condition Status SNOMED Code Problem History of alcohol abuse Z87.898 Active 569252239 Problem Allergic rhinitis, unspecified allergic rhinitis type J30.9 Active 29105236 Problem Chronic hepatitis C without hepatic coma B18.2 Active 311234451 Problem Mood disorder F39 Active 17251792 Problem Other chronic pain G89.29 Active 87871069 Problem Mild episode of recurrent major depressive disorder F33.0 Active 501293538 Problem Obsessive compulsive disorder F42 Active 317164387 Problem Hyperammonemia E72.20 Active 0239211 Problem Generalized anxiety disorder F41.1 Active 46745566 Problem Hypertension, benign I10 Active 83170401 ALLERGIES No Information ENCOUNTERS Encounter Location Date Diagnosis [facility] [id number] [place] [address] 25372- 6881 Feb, [facility] [id number] [place] [address] 06478- 8556 Feb, Chronic hepatitis C without hepatic coma B18.2 [facility] [id number] [place] [address] 55590- 5961 Jan, Mood disorder F39 [facility] [id number] [place] [address] 36262- 8411 Jan, Chronic hepatitis C without hepatic coma B18.2 [facility] [id number] [place] [address] 04465- 9874 Dec, Mild episode of recurrent major depressive disorder F33.0 ; Other chronic pain G89.29 ; Pain in left shoulder M25.512 and Pain in right shoulder M25.511 [facility] [address] [address]- 2403 Dec, Chronic hepatitis C without hepatic coma B18.2 [facility] [address] [address] 2546 Nov, Chronic hepatitis C without hepatic coma B18.2 [facility] [id number] [place] [address] 81457- 0716 Oct, Bronchitis J40 [facility] [id number] [place] [address] 22462 2546 Oct, Chronic hepatitis C without hepatic coma B18.[address] [facility] [id number] [place] [address] 81692- 2236 Sep, Chronic hepatitis C without hepatic coma B18.2 [facility] [id number] [place] [address] 74194- 7836 August, Chronic hepatitis C without hepatic coma B18.2 [facility] [id number] [place] [address] 71863- 1335 Jul, Chronic hepatitis C without hepatic coma B18.2 [facility] [id number] [place] [address] 14675- 6022 Jul, Generalized anxiety disorder F41.1 ; Mood disorder F39 and History of hepatitis C Z86.19 [facility] [address] [address]- 4996 Jul, Chronic hepatitis C without hepatic coma B18.2 [facility] [address] [address]- 2802 Jun, Chronic hepatitis C without hepatic coma B18.2 [facility] [address] [address] 0316 Jun, [facility] [address] [address]- 6159 May, Chronic hepatitis C without hepatic coma B18.2 [facility] [address] [address]- 7839 May, Hypertension, benign I10 [facility] [id number] [place] [address] 06795- 2057 Apr, Chronic hepatitis C without hepatic coma B18.2 [facility] [id number] [place] [address] 89630- 5220 Apr, Hypertension, benign I10 [facility] [id number] [place] [address] 25045- 9934 Mar, Chronic hepatitis C without hepatic coma B18.2 [place] [facility] [id number] [place] [address] 34555- 1031 Mar, Hypertension, benign I10 [place] [id number] [place] [address] 94851- 4424 Mar, Hypertension, benign I10 ; Encounter for immunization Z23 and Strain of right Achilles tendon, initial encounter S86.011A [facility] [id number] [place] [address] 61824- 5150 Feb, Chronic hepatitis C without hepatic coma B18.2 [place] [id number] [place] [address] 46456- 2784 Jan, Chronic hepatitis C without hepatic coma B18.2 [facility] [id number] [place] [address] 62384 -2305 Jan, Toe pain, right M79.674 and Cellulitis of foot, right L03.115 [facility] [id number] [place] [address] 44625- 3293 Dec, Chronic hepatitis C without hepatic coma B18.2 [facility] [id number] [place] [address] 72584- 6353 Nov, Chronic hepatitis C without hepatic coma B18.2 and Eczema of both hands L30.9 [place] [address] [place] [address]- 0297 Nov, [facility] [address] [address]- 6522 Oct, [facility] [address] [place] [address]- 4580 Sep, [facility] [address], [place] [address] 4[address] August, [facility] [address] [address]- 2514 August, [facility] [id number] [place] [address], [place] [address]- 8562 Jul, [facility] [address] [place] [address]- 8623 Jul, [facility] [address] [place] [address]- 9426 Jun, [facility] [address], [place] [address]- 8106 Jun, [facility] [address] [place] [address]- 5835 May, [facility] [address], [place] [address]- 1312 Apr, Chronic hepatitis C without hepatic coma B18.2 ; Hyperglycemia R73.9 and Hypertension, benign I10 [facility] [address], [place] [address]- 1731 Apr, Chronic hepatitis C without hepatic coma B18.2 ; Mood disorder F39 ; Hypertension, benign I10 and Hyperglycemia R73.9 [facility] [address], [place] [address]- 5056 Apr, [facility] [address] [place] [address]- 2211 Apr, [facility] [address], [place] [address]- 5117 Apr, [facility] [address], [place] [address]- 9562 Feb, [facility] [address], [place] [address]- 0329 Feb, [facility] [id number] [place] [address] 21070- 1808 Feb, [facility] [id number] [place] [address] 89725- 4890 Feb, [facility] [id number] [place] [address] 18609- 7799 Jan, [facility] [id number] [place] [address] 14278- 5673 Jan, Chronic hepatitis C without hepatic coma B18.2 ; Mood disorder F39 ; Encounter for immunization Z23 and Chronic viral hepatitis C B18.2 [facility] [id number] [address]- 4254 Jan, [facility] [id number] [place] [address] 74070- 6662 Jan, [facility] [address], [place] [address]- 0591 Dec, [facility] [address], [place] [address]- 7308 Dec, [facility] [address], [place] [address]- 5512 Nov, [facility] [id number] [place] [address] 71227- 4352 Nov, Weakness of both legs M62.81 [facility] [address], [place] [address]- 7293 Nov, [facility] [id number] [address]- 9148 Nov, [facility] [address], [place] [address]- 3029 Nov, [facility] [id number] [place] [address] 32587- 8214 Nov, Eczema, unspecified type L30.9 [facility] [id number] [place] [address] 92878- 5662 Nov, [facility] [id number] [place] [address] 38385- 0376 Nov, Eczema, unspecified type L30.9 ; Cessation of tobacco use in previous 12 months Z87.891 and Weakness of both legs M62.81 [facility] [id number] [place] [address] 61617- 3106 Oct, [facility] [id number] [place] [address] 58111- 3144 Oct, [facility] [id number] [place] [address] 85019- 5374 Oct, [facility] [id number] [place] [address] 66758- 4720 Oct, Chronic viral hepatitis C B18.2 [facility] [id number] [place] [address] 24924- 8723 Sep, 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 [id number] [place] [address] 47933- 4084 Sep, [facility] [id number] [place] [address] 98307- 7622 August, [facility] [id number] [place] [address] 83048- 4277 August, Hyperammonemia E72.20 [facility] [address], [place] [address]- 5186 August, Hyperammonemia E72.20 [facility] [address] [place] [address] 2546 August, Hyperammonemia E72.20 and Chronic hepatitis C without hepatic coma B18.2 [facility] [id number] [address] 2546 August, Chronic viral hepatitis C B18.2 [facility] [address] [place] [address] 2546 August, [facility] [id number] [place] [address], [place] [address] 2546 Jul, Chronic viral hepatitis C B18.[address] [facility] [address] [place] [address]- 3796 Jul, Chronic viral hepatitis C B18.2 [facility] [address] [place] [address] 2546 Jul, [facility] [id number] [place] [address] 2546 Jul, [facility] [address], [place] [address] 2544 [address], [address] [facility] [address], [place] [address] 2546 Jun, Chronic viral hepatitis C B18.[address] [facility] [address] [place] [address] 2546 Jun, [facility] [address] [place] [address] 2546 18 Jun, 2015 [facility] [address] [place] [address] 2546 16 Jun, 2015 Chronic viral hepatitis C B18.2 [facility] [address], [place] [address]- 7253 10 Jun, 2015 [facility] [id number] [place] [address] 13440- 0018 07 Jun, 2015 Chronic viral hepatitis C B18.2 [facility] [id number] [place] [address] 33918- 9859 17 May, 2015 Hepatitis C, chronic B18.2 and Chronic viral hepatitis C B18.2 [facility] [id number] [place] [address] 67135- 7382 May, [facility] [id number] [place] [address] 70447- 4584 Apr, [facility] [id number] [place] [address] 70088- 5612 Apr, Chronic viral hepatitis C B18.[address] [facility] [id number] [place] [address] 19409- 1394 Apr, Chronic viral hepatitis C B18.2 [facility] [id number] [place] [address] 91520- 1909 Apr, Hyper[address]emia E72.20 [facility] [id number] [place] [address] 21651- 7006 Apr, [facility] [id number] [place] [address] 97022- 9494 Apr, [facility] [id number] [place] [address] 38173- 6047 Apr, Chronic hepatitis C without hepatic coma B18.2 ; Hyperammonemia E72.20 and Chronic viral hepatitis C B18.2 [facility] [address], [place] [address]- 3243 Mar, Shortness of breath R06.02 [facility] [id number] [place] [address] 96688- 9122 Mar, Mood disorder F39 and Major depressive disorder, recurrent episode, unspecified 296.30 [facility] [id number] [place] [address] 47899- 2296 28 Mar, 2015 [facility] [id number] [place] [address] 83112- 1335 Mar, [facility] [address] 97525- 8639 15 Mar, 2015 [facility] [address] 55739 -5866 11 Mar, 2015 Seasonal allergies J30.2 ; Shortness of breath R06.[address] [facility] [id number] [place] [address] 24073- 1182 Mar, Hyperammonemia E72.20 ; Mood disorder F39 and History of alcohol abuse Z87.898 [facility] [id number] [place] [address] 46482- 0196 Mar, Hyperammonemia E72.20 [facility] [id number] [place] [address] 40493- 6448 Mar, [facility] [id number] [place] [address] 15832- 3971 Feb, [facility] [id number] [place] [address] 50806- 7689 Feb, [facility] [id number] [place] [address] 58817- 9602 Feb, Hyperammonemia E72.20 [facility] [id number] [place] [address] 79866- 0689 Feb, [facility] [id number] [place] [address] 60692- 6038 Feb, [facility] [id number] [place] [address] 58919- 8375 Feb, [place] [address], [place] [address]- 7288 Feb, [facility] [id number] [place] [address] 74069- 0216 Feb, Chronic viral hepatitis C B18.2 [facility] [id number] [place] [address] 72492- 2036 Feb, Chronic viral hepatitis C B18.2 [facility] [id number] [place] [address] 04925- 0656 Feb, [facility] [id number] [place] [address] 73088- 0466 Feb, Chronic viral hepatitis C B18.2 and Confusion R41.0 [facility] [id number] [place] [address] 69046- 1463 Feb, [facility] [id number] [place] [address] 81632- 7096 Jan, [facility] [id number] [place] [address] 70750- 9359 Jan, Confusion R41.0 [facility] [id number] [place] [address] 98942- 3546 Jan, [facility] [id number] [place] [address] 77586- 2829 Jan, [facility] [id number] [place] [address] 88482 2540 Jan, [facility] [id number] [place] [address] 89351- 9968 Jan, [facility] [id number] [place] [address] 67700- 4470 Jan, Chronic viral hepatitis C B18.2 and 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 [address], [place] [address]- 2768 Jan, [facility] [id number] [place] [address] 04990- 7127 Jan, [facility] [id number] [place] [address] 94519- 8264 Jan, [facility] [id number] [place] [address] 69872- 0208 Jan, Chronic viral hepatitis C B18.2 [facility] [id number] [place] [address] 41717- 8900 16 Jan, 2015 [facility] [id number] [place] [address] 75410- 9451 Jan, Back pain at L4-L5 level M54.5 and Confusion R41.0 [place] [id number] [place] [address] 43304- 0415 Jan, [facility] [id number] [place] [address] 24845- 6851 30 Dec, 2014 Chronic viral hepatitis C B18.2 and Flu vaccine need V04.81 [facility] [id number] [place] [address] 72119- 8971 30 Dec, 2014 Chronic viral hepatitis C B18.2 [place] [id number] [place] [address] 21445- 2421 28 Dec, 2014 [facility] [id number] [place] [address] 25410- 9440 22 Dec, [address] [facility] [id number] [place] [address] 95971- 9916 Dec, Polyuria 788.42 ; Polydipsia 783.5 ; Dizziness 780.4 and Hepatitis C, chronic 070.54 [facility] [id number] [place] [address] 72090- 4145 10 Dec, 2014 Major depressive disorder, recurrent episode, unspecified 296.30 and Generalized anxiety disorder 300.02 [facility] [id number] [address] Nov, [facility] [id number] [place] [address]17 Nov, [facility] [id number] [place] [address]248 Nov, [facility] [id number] [place] [address] 332[address]- 9327 Oct, [facility] [id number] [place] [address]- [address]365 Sep, [facility] [id number] [place] [address]28- 3791 August, Obsessive-compulsive disorders 300.3 ; Generalized anxiety disorder 300.02 and Major depressive disorder, recurrent episode, unspecified 296.30 [facility] [id number] [place] [address] 04098- 2183 August, Chronic hepatitis C without mention of hepatic coma 070.54 ; Hypertension 401.9 and Seasonal allergies 477.9 [facility] [address] [address] Jul, [facility] [address] [address] Jul, [facility] [id number] [address] Jun, [facility] [id number] [address] Jun, [facility] [id number] [place] [address]16- 8527 May, [facility] [id number] [address] May, [facility] [id number] [place] [address] 09853- 4129 May, [facility] [address] [id number] [place] [address] May, [facility] [address] [id number] [place] [address] Apr, [facility] [address] [id number] [place] [address] Apr, [facility] [place] [facility] [address] [id number] [place] [address] 2417 Apr, [facility] [address] [id number] [place] [address] Apr, [facility] [address] [id number] [place] [address] Apr, [facility] [address] [facility] [id number] [place] [address] 1728 Apr, [facility] [address] [id number] [place] [address]408 Mar, [facility] [address] [id number] [place] [address] Mar, [facility] [place] [facility] [address] [facility] [id number] [place] [address] Mar, [facility] [place] [facility] [address] [id number] [place] [address] 35[address] Mar, [facility] [place] [facility] [address] [id number] [place] [address] Mar, [facility] [place] [facility] [address] [id number] [place] [address] Mar, [facility] [place] [facility] [address] [id number] [place] [address]- 7[address] Mar, [facility] [place] [facility] [address] [facility] [id number] [place] [address] 9[address] Mar, [facility] [place] [facility] [address] [id number] [place] [address] 72[address] Mar, [facility] [place] [facility] [address] [id number] [place] [address]- 225[address] Feb, [facility] [place] [facility] [address] [id number] [place] [address] Feb, [facility] [place] [facility] [address] [id number] [place] [address]- [address]80 Feb, [facility] [place] [facility] [address] [id number] [place] [address]- 8[address] Feb, [facility] [place] [facility] [address] [id number] [place] [address]- 7147 Feb, [facility] [place] [facility] [address] [id number] [place] [address]- 6898 Jan, [facility] [place] [facility] [address] [id number] [place] [address]- 1151 Jan, [facility] [place] [facility] [address] [id number] [place] [address]- 5430 Jan, [facility] [place] [facility] [address] [id number] [place] [address]- 5568 Jan, [facility] [place] [facility] [address] [id number] [place] [address]- 7326 Jan, [facility] [place] [facility] [address] [id number] [place] [address]- 8881 Jan, [facility] [place] [facility] [address] [id number] [place] [address]- 3636 Jan, [facility] [place] [facility] [address] [id number] [place] [address] Jan, [facility] [place] [facility] [address] [id number] [place] [address] Jan, [facility] [place] [facility] [address] [id number] [place] [address]- 9637 Nov, [facility] [place] [facility] [address] [id number] [place] [address]- 8801 Nov, [facility] [place] [facility] [address] [id number] [place] [address]- 9218 Nov, [facility] [place] [facility] [address] [id number] [place] [address] Oct, [facility] [place] [facility] [address] [id number] [place] [address]- 3079 Oct, [facility] [place] [facility] [address] [id number] [place] [address]- 8770 Oct, [facility] [place] [facility] [address] [id number] [place] [address]- 1599 Oct, [facility] [place] [facility] [address] [id number] [place] [address]- 2800 Sep, [facility] [place] [facility] [address] [id number] [place] [address]- 3444 Sep, [facility] [place] [facility] [address] [id number] [place] [address]- 7505 Sep, [facility] [place] [facility] [address] [id number] [place] [address]- 0615 Sep, [facility] [place] [facility] [address] [id number] [place] [address]- 3892 Sep, [facility] [place] [facility] [address] [id number], [place] [address]- [address] Sep, [facility] [place] [facility] [address] [id number] [place] [address]- 287[address] August, [facility] [place] [facility] [address] [id number] [place] [address]- 9248 August, [facility] [place] [facility] [address] [id number] [place] [address]- 5168 Jul, [facility] [place] [facility] [address] [id number] [place] [address]- 3747 Jul, [facility] [place] [facility] [address] [id number] [place] [address]- 0664 Jul, [facility] [place] [facility] [address] [id number] [place] [address]- 6828 Jul, [facility] [place] [facility] [address] [id number] [place] [address]- 1206 Jul, [facility] [place] [facility] [address] [id number] [place] [address]- 6150 Jul, [facility] [place] [facility] [address] [id number] [place] [address]- 9364 Jul, [facility] [place] [facility] [address] [id number] [place] [address]- 9344 Jul, [facility] [place] [facility] [address] [id number] [place] [address]- 2649 Jul, [facility] [place] [facility] [address] [id number] [place] [address]- 1560 Jul, [facility] [place] [facility] [address] [id number] [place] [address]- 0307 Jun, [facility] [place] [facility] [address] [id number] [place] [address]- 8252 Jun, [facility] [place] [facility] [address] [id number] [place] [address]- 3179 Jun, [facility] [place] [facility] [address] [id number] [place] [address]- 8567 Jun, [facility] [place] [facility] [address] [id number] [place] [address]- 4312 May, [facility] [place] [facility] [address] [id number] [place] [address]- 0650 May, [facility] [place] [facility] [address] [id number] [place] [address]- 0398 May, [facility] [place] [facility] [address] [id number] [place] [address]- 6411 12 May, 2013 [facility] [place] [facility] [address] [id number] [place] [address]- 4084 10 May, 2013 [facility] [place] [facility] [address] [id number] [place] [address]- 6336 10 May, 2013 [facility] [place] [facility] [address] [id number] [place] [address]- 4776 16 Mar, 2013 [facility] [place] [facility] [address] [id number] [place] [address]- 4150 16 Mar, 2013 [facility] [place] [facility] [address] [id number] [place] [address]- 6904 Mar, [facility] [place] [facility] [address] [id number] [place] [address]- 7217 Mar, [facility] [place] [facility] [address] [id number] [place] [address]- 1691 Mar, [facility] [place] [facility] [address] [id number] [place] [address]- 3751 Mar, [facility] [place] [facility] [address] [id number] [place] [address]- 8978 Feb, [facility] [place] [facility] [address] [id number], [place] [address]- 8261 Feb, [facility] [place] [facility] [address] [id number], [place] [address]- 7720 Feb, [facility] [place] [facility] [address] [id number] [place] [address]- 3906 Feb, [facility] [place] [facility] [address] [id number], [place] [address]- 3754 Feb, [facility] [place] [facility] [address] [id number] [place] [address]- 3403 Feb, [facility] [place] [facility] [address] [id number] [place] [address]- 0833 07 Feb, 2012 [facility] [place] [facility] [address] [id number] [place] [address]- 7375 07 Feb, 2012 [facility] [place] [facility] [address] [id number] [place] [address]- 5260 18 Jan, 2012 [facility] [place] [facility] [address] [id number] [place] [address]- 2887 18 Jan, 2012 [facility] [place] [facility] [address] [id number] [place] [address]- 3554 17 Jan, 2012 [facility] [place] [facility] [address] [id number] [place] [address]- 1254 16 Jan, 2012 [facility] [place] [facility] [address] [id number] [place] [address]- 4143 16 Jan, 2012 [facility] [place] [facility] [address] [id number] [place] [address]- 5040 14 Jan, 2012 [facility] [place] [facility] [address] [id number] [place] [address]- 9551 14 Jan, 2013 [facility] [place] [facility] [address] [id number] [place] [address]- 0925 11 Jan, 2013 [facility] [place] [facility] [address] [id number] [place] [address]- 6309 11 Jan, 2013 [facility] [place] [facility] [address] [id number] [place] [address]- 9849 10 Jan, 2013 [facility] [place] [facility] [address] [id number] [place] [address]- 4965 27 Dec, 2012 [facility] [place] [facility] [address] [id number] [place] [address]- 2336 18 Dec, 2012 [facility] [place] [facility] [address] [id number] [place] [address]- 7792 18 Dec, 2012 [facility] [place] [facility] [address] [id number] [place] 30 Nov, 2012 [facility] [place] [facility] [address] [id number] [place] [address]- 6526 Nov, [facility] [place] [facility] [address] [id number] [place] [address]- 9107 Nov, [facility] [place] [facility] [address] [id number] [place] [address]- 0077 Nov, [facility] [place] [facility] [address] [id number] [place] [address]- 3717 Nov, [facility] [place] [facility] [address] [id number] [place] [address]- 7721 Nov, [facility] [place] [facility] [address] [id number] [place] [address]- 5300 Nov, [facility] [place] [facility] [address] [id number] [place] [address]- 3005 Nov, [facility] [place] [facility] [address] [id number] [place] [address]- 6713 Nov, [facility] [place] [facility] [address] [id number] [place] [address]- 5006 Nov, [facility] [place] [facility] [address] [id number] [place] [address]- 9095 Oct, [facility] [place] [facility] [address] [id number] [place] [address]- 5844 Oct, [facility] [place] [facility] [address] [id number] [place] [address]- 5690 Oct, [facility] [place] [facility] [address] [id number] [place] [address]- 6883 Oct, [facility] [place] [facility] [address] [id number] [place] [address]- 8762 Oct, [facility] [place] [facility] [address] [id number] [place] [address]- 3145 Oct, [facility] [place] [facility] [address] [id number] [place] [address]- 9706 Oct, [facility] [address] [id number] [place] [address]- 8294 Oct, [facility] [address] [id number] [place] [address]- 9966 Sep, [facility] [address] [id number] [place] [address]- 2976 Sep, [facility] [place] [facility] [address] [id number] [place] [address]- 9773 Sep, [facility] [place] [facility] [address] [id number] [place] [address]- 8986 Sep, [facility] [address] [id number] [place] [address]- 3796 August, [facility] [address] [id number] [place] [address]- 8436 August, [facility] [address] [id number] [place] [address]- 6956 August, [facility] [address] [place] [id number] Jul, [facility] [address] [place] [id number] Jul, [facility] [address] [id number] [place] [address]- 3126 Jun, [facility] [address] [id number] [place] [address]- 9316 May, [facility] [place] [facility] [address] [id number] [place] [address]- 2546 May, [facility] [place] [facility] [address] [id number] [place] [address]- 5336 Apr, [facility] [place] [facility] [address] [id number] [place] [address]- 2546 Feb, [facility] [place] [facility] [address] [id number] [place] [address]- 2546 Feb, [facility] [place] [facility] [address] [id number] [place] [address]- 5526 Jan, [facility] [place] [facility] [address] [id number] [place] [address]- 6996 Jan, [facility] [place] [facility] [address] [id number] [place] [address]- 8516 Jan, [facility] [place] [facility] [address] [id number] [place] [address]- 1986 Jan, [facility] [place] [facility] [address] [id number] [place] [address]- 5236 Jan, [facility] [place] [facility] [address] [id number] [place] [address]- 9886 Dec, [facility] [address] [id number] [place] [address]- [address] Dec, [facility] [address] [id number] [id number] Nov, [facility] [place] [facility] [address] [id number] [place] [address]- 3936 Nov, [facility] [place] [facility] [address] [id number] [place] [address]- 2436 Nov, [facility] [place] [facility] [address] [id number], [place] [address]- 1846 Nov, [facility] [place] [facility] [address] [id number], [place] [address]- 2686 August, [facility] [place] [facility] [address] [id number] [place] [address]- 2726 August, [facility] [place] [facility] [address] [id number] [place] [address]- 0136 August, [facility] [place] [facility] [address] [id number], [place] [address]- 9006 Jul, [facility] [place] [facility] [address] [id number] [place] [address]- 7[address] May, [facility] [id number] [address] 39[address] May, [facility] [id number] [address] 4716 May, [facility] [address]005[address] [address] 9105 Mar, [facility] [address] [address] Jan, [facility] [id number] [address] 6348 Jan, [facility] [id number] [place] [address] 7643 Oct, [facility] [id number] [place] [address]- 6779 August, [facility] [id number] [address] 3242 Jan, [facility] [address] [address] 8220 Jan, [facility] [address], [place] [address] Jan, [facility] [address], [place] [address]- 6577 Jan, IMMUNIZATIONS No Known Immunizations SOCIAL HISTORY [...]
[2018-08-15] MEDS ORDERED: KETOROLAC 60 MG/2 ML VIAL IM ONE (15:30)
--- OUTSIDE RECORDS SUMMARY | 2018-08-15 15:47 | XMS REPORT | Continuity of Care Document ---
Author Organization Unknown Address Unknown Allergies Active Description Code Type Severity Reaction Onset Reported/Identified Relationship to Patient Clinical Status Yes No Known Drug Allergies [id number] Drug Allergy Unknown N/A 12/05/2011 Medications There is no data. Problems Date Dx Coded Attending Type Code Diagnosis Diagnosed By 01/29/2009 401.1 ESSENTIAL HYPERTENSION BENIGN 01/29/2009 MILVIA LEE, SADU 401.1 ESSENTIAL HYPERTENSION BENIGN 01/29/2009 401.1 ESSENTIAL HYPERTENSION BENIGN 01/29/2009 401.1 ESSENTIAL HYPERTENSION BENIGN 01/29/2009 401.1 ESSENTIAL HYPERTENSION BENIGN 01/29/2009 401.1 ESSENTIAL HYPERTENSION BENIGN 01/29/2009 401.1 ESSENTIAL HYPERTENSION BENIGN 01/29/2009 401.1 ESSENTIAL HYPERTENSION BENIGN 01/29/2009 401.1 ESSENTIAL HYPERTENSION BENIGN 01/29/2009 401.1 ESSENTIAL HYPERTENSION BENIGN 01/29/2009 401.1 ESSENTIAL HYPERTENSION BENIGN 01/29/2009 401.1 ESSENTIAL HYPERTENSION BENIGN 01/29/2009 JB TUTTLE DO 401.1 ESSENTIAL HYPERTENSION BENIGN 01/29/2009 MORRIS DO VENKAT K 401.1 ESSENTIAL HYPERTENSION BENIGN 01/29/2009 ROSIO IRBY APRN 401.1 ESSENTIAL HYPERTENSION BENIGN 01/29/2009 GOMEZ LEE, TIM North 401.1 ESSENTIAL HYPERTENSION BENIGN 01/29/2009 MORRIS DO VENKAT K 401.1 ESSENTIAL HYPERTENSION BENIGN 01/29/2009 EMMA FERNANDO APRN 401.1 ESSENTIAL HYPERTENSION BENIGN 01/29/2009 EMMA FERNANDO APRN 401.1 ESSENTIAL HYPERTENSION BENIGN 01/29/2009 MORRIS DO VENKAT K 401.1 ESSENTIAL HYPERTENSION BENIGN 01/29/2009 ROSIO IRBY APRN 401.1 ESSENTIAL HYPERTENSION BENIGN 01/29/2009 EMMA FERNANDO APRN 401.1 ESSENTIAL HYPERTENSION BENIGN 01/29/2009 ROSIO IRBY APRN 401.1 ESSENTIAL HYPERTENSION BENIGN 01/29/2009 ROSIO IRBY APRN 401.1 ESSENTIAL HYPERTENSION BENIGN 01/29/2009 LUIGI [employer] ARTILLERY OFFICER, NERISSA 401.1 ESSENTIAL HYPERTENSION BENIGN 01/29/2009 MAHAMED [employer] DEFENSE ARTILLERY OFFICER, ROSIO T 401.1 ESSENTIAL HYPERTENSION BENIGN 01/29/2009 MAHAMED AIR DEFENSE ARTILLERY OFFICER, ROSIO T 401.1 ESSENTIAL HYPERTENSION BENIGN 01/29/2009 LUIGI [employer] DEFENSE ARTILLERY OFFICER, NERISSA 401.1 ESSENTIAL HYPERTENSION BENIGN 01/29/2009 MAHAMED AIR DEFENSE ARTILLERY OFFICER, ROSIO T 401.1 ESSENTIAL HYPERTENSION BENIGN 01/29/2009 MAHAMED AIR DEFENSE ARTILLERY OFFICER, ROSIO T 401.1 ESSENTIAL HYPERTENSION BENIGN 01/29/2009 MAHAMED AIR DEFENSE ARTILLERY OFFICER, ROSIO T 401.1 ESSENTIAL HYPERTENSION BENIGN 01/29/2009 LUIGI [employer]ENSE ARTILLERY OFFICER, NERISSA 401.1 ESSENTIAL HYPERTENSION BENIGN 01/29/2009 LUIGI [employer]ENSE ARTILLERY OFFICER, NERISSA 401.1 ESSENTIAL HYPERTENSION BENIGN 01/22/2011 780.52 INSOMNIA UNSPECIFIED 01/22/2011 SAUD STEEL MD 780.52 INSOMNIA UNSPECIFIED 01/22/2011 780.52 INSOMNIA UNSPECIFIED 01/22/2011 780.52 INSOMNIA UNSPECIFIED 01/22/2011 780.52 INSOMNIA UNSPECIFIED 01/22/2011 780.52 INSOMNIA UNSPECIFIED 01/22/2011 780.52 INSOMNIA UNSPECIFIED 01/22/2011 780.52 INSOMNIA UNSPECIFIED 01/22/2011 780.52 INSOMNIA UNSPECIFIED 01/22/2011 780.52 INSOMNIA UNSPECIFIED 01/22/2011 780.52 INSOMNIA UNSPECIFIED 01/22/2011 780.52 INSOMNIA UNSPECIFIED 01/22/2011 JB TUTTLE DO 780.52 INSOMNIA UNSPECIFIED 01/22/2011 ROBY MORRIS DOA K 780.52 INSOMNIA UNSPECIFIED 01/22/2011 ROSIO IRBY APRN 780.52 INSOMNIA UNSPECIFIED 01/22/2011 TIM DYER MD 780.52 INSOMNIA UNSPECIFIED 01/22/2011 ARTURO PITTS VENKAT K 780.52 INSOMNIA UNSPECIFIED 01/22/2011 EMMA FERNANDO APRN 780.52 INSOMNIA UNSPECIFIED 01/22/2011 EMMA FERNANDO APRN 780.52 INSOMNIA UNSPECIFIED 01/22/2011 ARTURO PITTS VENKAT K 780.52 INSOMNIA UNSPECIFIED 01/22/2011 ROSIO IRBY APRN 780.52 INSOMNIA UNSPECIFIED 01/22/2011 EMMA FERNANDO APRN 780.52 INSOMNIA UNSPECIFIED 01/22/2011 ROSIO IRBY APRN 780.52 INSOMNIA UNSPECIFIED 01/22/2011 ROSIO IRBY APRN 780.52 INSOMNIA UNSPECIFIED 01/22/2011 LU[employer]I [employer]ILL[employer] OFFICER, NERISSA 780.52 INSOMNIA UNSPECIFIED 01/22/2011 ROSIO IRBY APRN T 780.52 INSOMNIA UNSPECIFIED 01/22/2011 MAHAMED WHITMORE, ROSIO T 780.52 INSOMNIA UNSPECIFIED 01/22/2011 LUIGI [employer]ILL[employer] OFFICER, NERISSA 780.52 INSOMNIA UNSPECIFIED 01/22/2011 ROSIO IRBY APRN T 780.52 INSOMNIA UNSPECIFIED 01/22/2011 ROSIO IRBY APRN T 780.52 INSOMNIA UNSPECIFIED 01/22/2011 ROSIO IRBY APRN T 780.52 INSOMNIA UNSPECIFIED 01/22/2011 LUIGI [employer]ILL[employer] OFFICER, NERISSA 780.52 INSOMNIA UNSPECIFIED 01/22/2011 LUIGI [employer] ARTILLERY OFFICER, NERISSA 780.52 INSOMNIA UNSPECIFIED 08/22/2011 070.54 CHRONIC [...] WITHOUT HEPATIC COMA 08/22/2011 ARTURO PITTS VENKAT K 070.54 CHRONIC HEPATITIS C WITHOUT HEPATIC COMA 08/22/2011 ROSIO IRBY APRN T 070.54 CHRONIC HEPATITIS C WITHOUT HEPATIC COMA 08/22/2011 ABDULLAHI WHITMORE EMMA ISAAC 070.54 CHRONIC HEPATITIS C WITHOUT [...] IRBY APRN 780.79 MALAISE AND FATIGUE 12/03/2011 TIM DYER MD M 458.9 HYPOTENSION 12/03/2011 TIM DYER MD M 780.79 MALAISE AND FATIGUE 12/03/2011 MORRIS DO, VENKAT K 458.9 HYPOTENSION 12/03/2011 MORRIS DO, VENKAT K 780.79 MALAISE AND FATIGUE 12/03/2011 ABDULLAHI WHITMORE EMMA PONCHO 458.9 HYPOTENSION 12/03/2011 ABDULLAHI WHITMORE EMMA PONCHO 780.79 MALAISE AND FATIGUE 12/03/2011 ABDULLAHI WHITMORE EMMA PONCHO 458.9 HYPOTENSION 12/03/2011 ABDULLAHI WHITMORE EMMA PONCHO 780.79 MALAISE AND FATIGUE 12/03/2011 MORRIS DO, VENKAT K 458.9 HYPOTENSION 12/03/2011 MORRIS DO VENKAT K 780.79 MALAISE AND FATIGUE 12/03/2011 ROSIO IRBY APRN T 458.9 HYPOTENSION 12/03/2011 ROSIO IRBY APRN 780.79 MALAISE AND FATIGUE 12/03/2011 ABDULLAHI WHITMORE EMMA PONCHO 458.9 HYPOTENSION 12/03/2011 EMMA FERNANDO APRN 780.79 MALAISE AND FATIGUE 12/03/2011 ROSIO IRBY APRN T 458.9 HYPOTENSION 12/03/2011 ORSIO IRBY APRN 780.79 MALAISE AND FATIGUE 12/03/2011 ROSIO IRBY APRN T 458.9 HYPOTENSION 12/03/2011 MAHAMED [employer] OFFICER, ROSIO T 780.79 MALAISE AND FATIGUE 12/03/2011 NAZIA MEYERS APRNETTE 458.9 HYPOTENSION 12/03/2011 NERISSA MEYERS APRN 780.79 MALAISE AND FATIGUE 12/03/2011 ROSIO IRBY APRN T 458.9 HYPOTENSION 12/03/2011 ROSIO IRBY APRN 780.79 MALAISE AND FATIGUE 12/03/2011 ROSIO IRBY APRN T 458.9 HYPOTENSION 12/03/2011 ROSOI IRBY APRN T 780.79 MALAISE AND FATIGUE 12/03/2011 LUIGI WHITMORE NERISSA 458.9 HYPOTENSION 12/03/2011 NERISSA MEYERS APRN 780.79 MALAISE AND FATIGUE 12/03/2011 ROSIO IRBY APRN 458.9 HYPOTENSION 12/03/2011 ROSIO IRBY APRN 780.79 MALAISE AND FATIGUE 12/03/2011 ROSIO IRBY APRN 458.9 HYPOTENSION 12/03/2011 ROSIO IRBY APRN 780.79 MALAISE AND FATIGUE 12/03/2011 ROSIO IRBY APRN 458.9 HYPOTENSION 12/03/2011 ROSIO IRBY APRN T 780.79 MALAISE AND FATIGUE 12/03/2011 LUIGIAJ WHITMORE NERISSA 458.9 HYPOTENSION 12/03/2011 NERISSA MEYERS APRN 780.79 MALAISE AND FATIGUE 12/03/2011 NERISSA MEYERS [...] DX (3 YRS AND ABOVE, IM) 01/30/2012 SAUD STEEL MD V04.81 FLU DX (3 YRS AND [...] AND ABOVE, IM) 01/30/2012 VENKAT MORRIS DO K V04.81 FLU DX (3 YRS AND ABOVE, IM) 01/30/2012 ROSIO IRBY APRN V04.81 FLU DX (3 YRS AND ABOVE, IM) 01/30/2012 TIM DYER MD V04.81 FLU DX (3 YRS AND ABOVE, IM) 01/30/2012 VENKAT MORRIS DO K V04.81 FLU DX (3 YRS AND ABOVE, [...] (3 YRS AND ABOVE, IM) 01/30/2012 MAHAMED [employer] OFFICER, ROSIO T V04.81 FLU DX (3 YRS AND ABOVE, IM) 01/30/2012 MAHAMED [employer] DEFENSE ARTILLERY OFFICER, ROSIO T V04.81 FLU DX (3 YRS AND ABOVE, IM) 01/30/2012 LUIGI [employer] ARTILLERY OFFICER, NERISSA V04.81 FLU DX (3 YRS AND ABOVE, IM) 01/30/2012 MAHAMED [employer]ENSE ARTILLERY OFFICER, ROSIO T V04.81 FLU DX (3 YRS AND ABOVE, IM) 01/30/2012 MAHAMED [employer] DEFENSE ARTILLERY OFFICER, ROSIO T V04.81 FLU DX (3 YRS AND ABOVE, IM) 01/30/2012 LUIGI [employer] DEF[employer] ARTILLERY OFFICER, NERISSA V04.81 FLU DX (3 YRS AND ABOVE, IM) 01/30/2012 MAHAMED [employer] DEF[employer] ARTILLERY OFFICER, ROSIO T V04.81 FLU DX (3 YRS AND ABOVE, IM) 01/30/2012 MAHAMED [employer] DEFENSE ARTILLERY OFFICER, ROSIO T V04.81 FLU DX (3 YRS AND ABOVE, IM) 01/30/2012 MAHAMED [employer] DEFENSE ARTILLERY OFFICER, ROSIO T V04.81 FLU DX (3 YRS AND ABOVE, IM) 01/30/2012 LUIGI [employer] ARTILLERY OFFICER, NERISSA V04.81 FLU DX (3 YRS AND ABOVE, IM) 01/30/2012 LUIGI [employer] ARTILLERY OFFICER, NERISSA V04.81 FLU DX (3 YRS AND ABOVE, IM) 05/13/2012 Ot 070.70 UNSPECIFIED VIRAL HEPATITIS C WITHOUT HE 05/13/2012 Ot 303.91 ALCOH DEP NEC/NOS-CONTIN 05/13/2012 Ot 401.9 HYPERTENSION NOS 05/13/2012 Ot 414.01 CORONARY ATHEROSCLEROSIS OF [place] CORON 05/13/2012 Ot V03.82 PROPHYLACTIC VACC AGAINST [...] UNSPECIFIED ALCOHOL DEPENDENCE UNSPECIFIED DRINKING BEHAVIOR 05/25/2012 EMMA FERNANDO APRN 682.9 CELLULITIS AND ABSCESS OF UNSPECIFIED SITES 05/25/2012 ABDULLAHI WHITMORE EMMA PONCHO 303.90 OTHER AND UNSPECIFIED ALCOHOL DEPENDENCE UNSPECIFIED DRINKING BEHAVIOR 05/25/2012 ABDULLAHI WHITMORE EMMA PONCHO 682.9 CELLULITIS AND ABSCESS OF UNSPECIFIED SITES 05/25/2012 MORRIS DOROBYA K 303.90 OTHER AND UNSPECIFIED ALCOHOL DEPENDENCE UNSPECIFIED DRINKING BEHAVIOR 05/25/2012 MORRIS DOROBYA K 682.9 CELLULITIS AND ABSCESS OF UNSPECIFIED SITES 05/25/2012 ROSIO IRBY APRN T 303.90 OTHER AND UNSPECIFIED ALCOHOL DEPENDENCE UNSPECIFIED DRINKING BEHAVIOR 05/25/2012 ROSIO IRBY APRN 682.9 CELLULITIS AND ABSCESS OF UNSPECIFIED SITES 05/25/2012 EMMA FERNANDO APRN 303.90 OTHER AND UNSPECIFIED ALCOHOL DEPENDENCE UNSPECIFIED DRINKING BEHAVIOR 05/25/2012 ABDULLAHI WHITMORE EMMA PONCHO 682.9 CELLULITIS AND ABSCESS OF UNSPECIFIED SITES 05/25/2012 ROSIO IRBY APRN 303.90 OTHER AND UNSPECIFIED ALCOHOL DEPENDENCE UNSPECIFIED DRINKING BEHAVIOR 05/25/2012 ROSIO IRBY APRN 682.9 CELLULITIS AND ABSCESS OF UNSPECIFIED SITES 05/25/2012 ROSIO IRBY APRN T 303.90 OTHER AND UNSPECIFIED ALCOHOL DEPENDENCE UNSPECIFIED DRINKING BEHAVIOR 05/25/2012 ROSIO IRBY APRN 682.9 CELLULITIS AND ABSCESS OF UNSPECIFIED SITES 05/25/2012 NERISSA MEYERS APRN 303.90 OTHER AND UNSPECIFIED ALCOHOL DEPENDENCE [...] UNSPECIFIED ALCOHOL DEPENDENCE UNSPECIFIED DRINKING BEHAVIOR 05/25/2012 ORSIO IRBY APRN 682.9 CELLULITIS AND ABSCESS OF UNSPECIFIED SITES 05/25/2012 ROSIO IRBY APRN T 303.90 OTHER AND UNSPECIFIED ALCOHOL DEPENDENCE UNSPECIFIED DRINKING BEHAVIOR 05/25/2012 ROSIO IRBY APRN T 682.9 CELLULITIS AND ABSCESS OF UNSPECIFIED SITES 05/25/2012 ROSIO IRBY APRN T 303.90 OTHER AND UNSPECIFIED ALCOHOL DEPENDENCE UNSPECIFIED DRINKING BEHAVIOR 05/25/2012 ROSIO IRBY APRN 682.9 CELLULITIS AND ABSCESS OF UNSPECIFIED SITES 05/25/2012 LUIGIAJ WHITMORE NERISSA 303.90 OTHER AND UNSPECIFIED ALCOHOL DEPENDENCE UNSPECIFIED DRINKING BEHAVIOR 05/25/2012 LUIGIAJ WHITMORE NERISSA 682.9 CELLULITIS AND ABSCESS OF UNSPECIFIED SITES 05/25/2012 LUIGIAJ WHITMORE NERISSA 303.90 OTHER AND UNSPECIFIED ALCOHOL DEPENDENCE UNSPECIFIED DRINKING BEHAVIOR 05/25/2012 LUIGIAJ WHITMORE NERISSA 682.9 CELLULITIS AND ABSCESS OF UNSPECIFIED SITES 08/03/2012 787.91 DIARRHEA 08/03/2012 787.91 DIARRHEA 08/03/2012 787.91 DIARRHEA 08/03/2012 787.91 DIARRHEA 08/03/2012 787.91 DIARRHEA 08/03/2012 787.91 DIARRHEA 08/03/2012 787.91 DIARRHEA 08/03/2012 787.91 DIARRHEA 08/03/2012 JB TUTTLE DO 787.91 DIARRHEA 08/03/2012 VENKAT MORRIS DO K 787.91 DIARRHEA 08/03/2012 ROSIO IRBY APRN 787.91 DIARRHEA 08/03/2012 TIM DYER MD 787.91 DIARRHEA 08/03/2012 VENKAT MORRIS DO K 787.91 DIARRHEA 08/03/2012 EMMA FERNANDO APRN 787.91 DIARRHEA 08/03/2012 EMMA FERNANDO APRN 787.91 DIARRHEA 08/03/2012 VENKAT MORRIS DO K 787.91 DIARRHEA 08/03/2012 ROSIO IRBY APRN 787.91 DIARRHEA 08/03/2012 EMMA FERNANDO APRN 787.91 DIARRHEA 08/03/2012 ROSIO IRBY APRN 787.91 DIARRHEA 08/03/2012 ROSIO IRBY APRN T 787.91 DIARRHEA 08/03/2012 NAZIA MEYERS APRNETTE 787.91 DIARRHEA 08/03/2012 ROSIO IRBY APRN T 787.91 DIARRHEA 08/03/2012 ROSIO IRBY APRN T 787.91 DIARRHEA 08/03/2012 LUIGI WHITMORE, NERISSA 787.91 DIARRHEA 08/03/2012 ROSIO IRBY APRN T 787.91 DIARRHEA 08/03/2012 ROSIO IRBY APRN T 787.91 DIARRHEA 08/03/2012 ROSIO IRBY APRN T 787.91 DIARRHEA 08/03/2012 LUIGI WHITMORE, NERISSA 787.91 DIARRHEA 08/03/2012 NERISSA MEYERS APRN 787.91 DIARRHEA 08/27/2012 275.2 HYPOMAGNESEMIA 08/27/2012 275.2 HYPOMAGNESEMIA 08/27/2012 275.2 HYPOMAGNESEMIA 08/27/2012 275.2 HYPOMAGNESEMIA 08/27/2012 275.2 HYPOMAGNESEMIA 08/27/2012 275.2 HYPOMAGNESEMIA 08/27/2012 275.2 HYPOMAGNESEMIA 08/27/2012 JB TUTTLE DO 275.2 HYPOMAGNESEMIA 08/27/2012 VENKAT MORRIS DO K 275.2 HYPOMAGNESEMIA 08/27/2012 ROSIO IRBY APRN 275.2 HYPOMAGNESEMIA 08/27/2012 GOMEZ LEE, TIM North 275.2 HYPOMAGNESEMIA 08/27/2012 VENKAT MORRIS DO K 275.2 HYPOMAGNESEMIA 08/27/2012 EMMA FERNANDO APRN 275.2 HYPOMAGNESEMIA 08/27/2012 EMMA FERNANDO APRN 275.2 HYPOMAGNESEMIA 08/27/2012 VENKAT MORRIS DO K 275.2 HYPOMAGNESEMIA 08/27/2012 ROSIO IRBY APRN 275.2 HYPOMAGNESEMIA 08/27/2012 EMMA FERNANDO APRN 275.2 HYPOMAGNESEMIA 08/27/2012 ROSIO IRBY APRN 275.2 HYPOMAGNESEMIA 08/27/2012 ROSIO IRBY APRN 275.2 HYPOMAGNESEMIA 08/27/2012 LUIGI [employer]ILL[employer] OFFICER, NERISSA 275.2 HYPOMAGNESEMIA 08/27/2012 ROSIO IRBY APRN T 275.2 HYPOMAGNESEMIA 08/27/2012 ROSIO IRBY APRN T 275.2 HYPOMAGNESEMIA 08/27/2012 NERISSA MEYERS APRN 275.2 HYPOMAGNESEMIA 08/27/2012 ROSIO IRBY APRN T 275.2 HYPOMAGNESEMIA 08/27/2012 ROSIO IRBY APRN T 275.2 HYPOMAGNESEMIA 08/27/2012 ROSIO IRBY APRN T 275.2 HYPOMAGNESEMIA 08/27/2012 NAZIA MEYERS APRNETTE 275.2 HYPOMAGNESEMIA 08/27/2012 LUIGIAJ WHITMORE, NERISSA 275.2 HYPOMAGNESEMIA 09/22/2012 296.90 MOOD DISORDER 09/22/2012 477.9 RHINITIS 09/22/2012 296.90 MOOD DISORDER 09/22/2012 477.9 RHINITIS 09/22/2012 296.90 MOOD DISORDER 09/22/2012 477.9 RHINITIS 09/22/2012 296.90 MOOD DISORDER 09/22/2012 477.9 RHINITIS 09/22/2012 296.90 MOOD DISORDER 09/22/2012 477.9 RHINITIS 09/22/2012 WERMAURICE DO, JB F 296.90 MOOD DISORDER 09/22/2012 WERDER DO, JB F 477.9 RHINITIS 09/22/2012 MORRIS DO, VENKAT K 296.90 MOOD DISORDER 09/22/2012 MORRIS DO VENKAT K 477.9 RHINITIS 09/22/2012 ROSIO IRBY APRN T 296.90 MOOD DISORDER 09/22/2012 ROSIO IRBY APRN T 477.9 RHINITIS 09/22/2012 TIM DYER MD 296.90 MOOD DISORDER 09/22/2012 TIM DYER MD 477.9 RHINITIS 09/22/2012 MORRIS DO, VENKAT K 296.90 MOOD DISORDER 09/22/2012 MORRIS DO VENKAT K 477.9 RHINITIS 09/22/2012 EMMA FERNANDO APRN 296.90 MOOD DISORDER 09/22/2012 FERNANDO EMMA WHITMORE 477.9 RHINITIS 09/22/2012 EMMA FERNANDO APRN 296.90 MOOD DISORDER 09/22/2012 ABDULLAHI WHITMORE EMMA PONCHO 477.9 RHINITIS 09/22/2012 MORRIS DO, VENKAT K 296.90 MOOD DISORDER 09/22/2012 MORRIS DO, VENKAT K 477.9 RHINITIS 09/22/2012 ROSIO IRBY APRN T 296.90 MOOD DISORDER 09/22/2012 MAHAMED WHITMORE, ROSIO T 477.9 RHINITIS 09/22/2012 FERNANDO AIR DEFENSE ARTILLERY OFFICER, EMMA ISAAC 296.90 MOOD DISORDER 09/22/2012 FERNANDO AIR DEFENSE ARTILLERY OFFICER, EMMA ISAAC 477.9 RHINITIS 09/22/2012 MAHAMED BATRESN ROSIO T 296.90 MOOD DISORDER 09/22/2012 MAHAMED BATRESN, ROSIO T 477.9 RHINITIS 09/22/2012 MAHAMED BATRESN, ROSIO T 296.90 MOOD DISORDER 09/22/2012 ROSIO IRBY APRN T 477.9 RHINITIS 09/22/2012 LUIGI AIR DEFENSE ARTILLERY OFFICER, NERISSA 296.90 MOOD DISORDER 09/22/2012 LUIGI [employer] DEFENSE ARTILLERY OFFICER, NERISSA 477.9 RHINITIS 09/22/2012 MAHAMED WHITMORE ROSIO T 296.90 MOOD DISORDER 09/22/2012 ROSIO IRBY APRN T 477.9 RHINITIS 09/22/2012 MAHAMED WHITMORE ROSIO T 296.90 MOOD DISORDER 09/22/2012 MAHAMED BATRESN, ROSIO T 477.9 RHINITIS 09/22/2012 LUIGI [employer] ARTILLERY OFFICER, NERISSA 296.90 MOOD DISORDER 09/22/2012 LUIGIAJ WHITMORE, NERISSA 477.9 RHINITIS 09/22/2012 MAHAMED WHITMORE ROSIO T 296.90 MOOD DISORDER 09/22/2012 MAHAMED WHITMORE ROSIO T 477.9 RHINITIS 09/22/2012 MAHAMED WHITMORE ROSIO T 296.90 MOOD DISORDER 09/22/2012 ROSIO RIBY APRN T 477.9 RHINITIS 09/22/2012 MAHAMED WHITMORE ROSIO T 296.90 MOOD DISORDER 09/22/2012 MAHAMED BATRESN, ROSIO T 477.9 RHINITIS 09/22/2012 LUIGI AIR DEF[employer] ARTILLERY OFFICER, NERISSA 296.90 MOOD DISORDER 09/22/2012 LUIGI AIR DEFENSE ARTILLERY OFFICER, NERISSA 477.9 RHINITIS 09/22/2012 LUIGI [employer] DEFENSE ARTILLERY OFFICER, NERISSA 296.90 MOOD DISORDER 09/22/2012 LUIGI AIR DEFENSE ARTILLERY OFFICER, NERISSA 477.9 RHINITIS 10/13/2012 327.23 SLEEP APNEA, OBSTRUCTIVE (ADULT/PED) 10/13/2012 786.07 WHEEZING 10/13/2012 327.23 SLEEP APNEA, OBSTRUCTIVE (ADULT/PED) 10/13/2012 786.07 WHEEZING 10/13/2012 327.23 SLEEP APNEA, OBSTRUCTIVE (ADULT/PED) 10/13/2012 786.07 WHEEZING 10/13/2012 327.23 SLEEP APNEA, OBSTRUCTIVE (ADULT/PED) 10/13/2012 786.07 WHEEZING 10/13/2012 JB TUTTLE DO 327.23 SLEEP APNEA, OBSTRUCTIVE (ADULT/PED) 10/13/2012 JB TUTTLE DO 786.07 WHEEZING 10/13/2012 VENKAT MORRIS DO K 327.23 SLEEP APNEA, OBSTRUCTIVE (ADULT/PED) 10/13/2012 VENKAT MORRIS DO K 786.07 WHEEZING 10/13/2012 ROSIO IRBY APRN 327.23 SLEEP APNEA, OBSTRUCTIVE (ADULT/PED) 10/13/2012 ROSIO IRBY APRN 786.07 WHEEZING 10/13/2012 TIM DYER MD 327.23 SLEEP APNEA, OBSTRUCTIVE (ADULT/PED) 10/13/2012 TIM DYER MD 786.07 WHEEZING 10/13/2012 VENKAT MORRIS DO 327.23 SLEEP APNEA, OBSTRUCTIVE (ADULT/PED) 10/13/2012 VENKAT MORRIS DO K 786.07 WHEEZING 10/13/2012 EMMA FERNANDO APRN 327.23 SLEEP APNEA, OBSTRUCTIVE (ADULT/PED) 10/13/2012 EMMA FERNANDO APRN 786.07 WHEEZING 10/13/2012 EMMA FERNANDO APRN 327.23 SLEEP APNEA, OBSTRUCTIVE (ADULT/PED) 10/13/2012 EMMA FERNANDO APRN 786.07 WHEEZING 10/13/2012 VENKAT MORRIS DO 327.23 SLEEP APNEA, OBSTRUCTIVE (ADULT/PED) 10/13/2012 VENKAT MORRIS DO K 786.07 WHEEZING 10/13/2012 ROSIO IRBY APRN [...] IRBY APRN T 786.07 WHEEZING 10/13/2012 LUIGI [employer] DEF[employer] ARTILLERY OFFICERNAZIA SalazarNERISSA 327.23 SLEEP APNEA, OBSTRUCTIVE (ADULT/PED) 10/13/2012 LUIGI WHITMORE, NERISSA 786.07 WHEEZING 10/13/2012 ROSIO IRBY APRN T 327.23 SLEEP APNEA, OBSTRUCTIVE (ADULT/PED) 10/13/2012 ROSIO IRBY APRN T 786.07 WHEEZING 10/13/2012 ROSIO IRBY APRN T 327.23 SLEEP APNEA, OBSTRUCTIVE (ADULT/PED) 10/13/2012 ROSIO IRBY APRN T 786.07 WHEEZING 10/13/2012 NAZIA MEYERS APRNETTE 327.23 SLEEP APNEA, OBSTRUCTIVE (ADULT/PED) 10/13/2012 NAZIA MEYERS APRNETTE 786.07 WHEEZING 10/13/2012 ROSIO IRBY APRN 327.23 SLEEP APNEA, OBSTRUCTIVE (ADULT/PED) 10/13/2012 ROSIO IRBY APRN 786.07 WHEEZING 10/13/2012 ROSIO IRBY APRN T 327.23 SLEEP APNEA, OBSTRUCTIVE (ADULT/PED) 10/13/2012 ROSIO IRBY APRN T 786.07 WHEEZING 10/13/2012 ROSIO IRBY APRN T 327.23 SLEEP APNEA, OBSTRUCTIVE (ADULT/PED) 10/13/2012 ROSIO IRBY APRN 786.07 WHEEZING 10/13/2012 LUIGI WHITMORE, NERISSA 327.23 SLEEP APNEA, OBSTRUCTIVE (ADULT/PED) 10/13/2012 NAZIA MEYERS APRNETTE 786.07 WHEEZING 10/13/2012 NAZIA MEYERS APRNETTE 327.23 SLEEP APNEA, OBSTRUCTIVE (ADULT/PED) 10/13/2012 LUIGI WHITMORE NERISSA 786.07 WHEEZING 11/04/2012 ROSIO IRBY Ot 780.79 OTH MALAISE FATIGUE 11/04/2012 ROSIO IRBY Ot 784.0 HEADACHE 11/04/2012 ROSIO IRBY Ot 786.03 APNEA 11/10/2012 275.42 HYPERCALCEMIA 11/10/2012 786.2 COUGH 11/10/2012 275.42 HYPERCALCEMIA 11/10/2012 786.2 COUGH 11/10/2012 275.42 HYPERCALCEMIA 11/10/2012 786.2 COUGH 11/10/2012 275.42 HYPERCALCEMIA 11/10/2012 786.2 COUGH 11/10/2012 WERDER DOREJIEN F 275.42 HYPERCALCEMIA 11/10/2012 WERDER DO, JB F 786.2 COUGH 11/10/2012 MORRIS DO, VENKAT K 275.42 HYPERCALCEMIA 11/10/2012 MORRIS DO, VENKAT K 786.2 COUGH 11/10/2012 ROSIO IRBY APRN 275.42 HYPERCALCEMIA 11/10/2012 ROSIO IRBY APRN 786.2 COUGH 11/10/2012 TIM DYER MD 275.42 HYPERCALCEMIA 11/10/2012 TIM DYER MD 786.2 COUGH 11/10/2012 MORRIS DO, VENKAT K 275.42 HYPERCALCEMIA 11/10/2012 MORRIS DO, VENKAT K 786.2 COUGH 11/10/2012 ABDULLAHI WHITMORE, EMMA ISAAC 275.42 HYPERCALCEMIA 11/10/2012 FERNANDORICK WHITMORE, EMMA JAVIERH 786.2 COUGH 11/10/2012 FERNANDORICK WHITMORE, [facility] 275.42 HYPERCALCEMIA 11/10/2012 FERNANDO MYRANDA, [facility] 786.2 COUGH 11/10/2012 MORRIS DO, VENKAT K 275.42 HYPERCALCEMIA 11/10/2012 MORRIS DO, VENKAT K 786.2 COUGH 11/10/2012 ROSIO IRBY APRN 275.42 HYPERCALCEMIA 11/10/2012 ROSIO IRBY APRN 786.2 COUGH 11/10/2012 FERNANDORICK WHITMORE, EMMA JAVIERH 275.42 HYPERCALCEMIA 11/10/2012 ABDULLAHI WHITMORE, [facility] 786.2 COUGH 11/10/2012 ROSIO IRBY APRN 275.42 HYPERCALCEMIA 11/10/2012 ROSIO IRBY APRN 786.2 COUGH 11/10/2012 ROSIO IRBY APRN 275.42 HYPERCALCEMIA 11/10/2012 ROSIO IRBY APRN 786.2 COUGH 11/10/2012 NERISSA MEYERS APRN 275.42 HYPERCALCEMIA 11/10/2012 NERISSA MEYERS APRN 786.2 COUGH 11/10/2012 ROSIO IRBY APRN 275.42 HYPERCALCEMIA 11/10/2012 ROSIO IRBY APRN 786.2 COUGH 11/10/2012 ROSIO IRBY APRN 275.42 HYPERCALCEMIA 11/10/2012 ROSIO IRBY APRN 786.2 COUGH 11/10/2012 [employer], NERISSA 275.42 HYPERCALCEMIA 11/10/2012 [employer], NERISSA 786.2 COUGH 11/10/2012 ROSIO IRBY APRN T 275.42 HYPERCALCEMIA 11/10/2012 MAHAMED WHITMORE, ROSIO T 786.2 COUGH 11/10/2012 MAHAMED WHITMORE, ROSIO T 275.42 HYPERCALCEMIA 11/10/2012 ROSIO IRBY APRN T 786.2 COUGH 11/10/2012 ROSIO IRBY APRN T 275.42 HYPERCALCEMIA 11/10/2012 MAHAMED WHITMORE, ROSIO T 786.2 COUGH 11/10/2012 [employer], NERISSA 275.42 HYPERCALCEMIA 11/10/2012 [employer]ER, NERISSA 786.2 COUGH 11/10/2012 [employer], NERISSA 275.42 HYPERCALCEMIA 11/10/2012 [employer], NERISSA 786.2 COUGH 11/17/2012 NICKO LEE, DEDE Mar Ot 724.5 BACKACHE NOS 11/24/2012 786.50 CHEST PAIN 11/24/2012 786.50 CHEST PAIN 11/24/2012 786.50 CHEST PAIN 11/24/2012 786.50 CHEST PAIN 11/24/2012 JB TUTTLE DO 786.50 CHEST PAIN 11/24/2012 ARTURO DO, VENKAT K 786.50 CHEST PAIN 11/24/2012 ROSIO IRBY APRN T 786.50 CHEST PAIN 11/24/2012 GOMEZ LEE, TIM [place] 786.50 CHEST PAIN 11/24/2012 ARTURO PITTS, VENKAT K 786.50 CHEST PAIN 11/24/2012 ABDULLAHI WHITMORE EMMA PONCHO 786.50 CHEST PAIN 11/24/2012 ABDULLAHI WHITMORE EMMA JAVIERH 786.50 CHEST PAIN 11/24/2012 ARTURO PITTS, VENKAT K 786.50 CHEST PAIN 11/24/2012 ROSIO IRBY APRN T 786.50 CHEST PAIN 11/24/2012 ABDULLAHI WHITMORE EMMA PONCHO 786.50 CHEST PAIN 11/24/2012 ROSIO IRBY APRN T 786.50 CHEST PAIN 11/24/2012 ROSIO IRBY APRN T 786.50 CHEST PAIN 11/24/2012 NAZIA MEYERS APRNETTE 786.50 CHEST PAIN 11/24/2012 ROSIO IRBY APRN T 786.50 CHEST PAIN 11/24/2012 ROSIO IRBY APRN T 786.50 CHEST PAIN 11/24/2012 LUIGI WHITMORE, NERISSA 786.50 CHEST PAIN 11/24/2012 ROSIO IRBY APRN T 786.50 CHEST PAIN 11/24/2012 MAHAMED WHITMORE, ROSIO T 786.50 CHEST PAIN 11/24/2012 ROSIO IRBY APRN T 786.50 CHEST PAIN 11/24/2012 [employer], NERISSA 786.50 CHEST PAIN 11/24/2012 LUIGI BATRESN, NERISSA 786.50 CHEST PAIN 11/29/2012 V58.69 MEDICATION HIGH RISK 11/29/2012 V58.69 MEDICATION HIGH RISK 11/29/2012 JB TUTTLE DO F 296.30 MO DEPRESSIVE RECURRENT UNSPECIFIED 11/29/2012 JB TUTTLE DO F V58.69 MEDICATION HIGH RISK 11/29/2012 ARTURO PITTS VENKAT K 296.30 MO DEPRESSIVE RECURRENT UNSPECIFIED 11/29/2012 ARTURO PITTS VENKAT K V58.69 MEDICATION HIGH RISK 11/29/2012 ROSIO IRBY APRN 296.30 MO DEPRESSIVE RECURRENT UNSPECIFIED 11/29/2012 ROSIO IRBY APRN V58.69 MEDICATION HIGH RISK 11/29/2012 GOMEZ LEE, TIM M 296.30 MO DEPRESSIVE RECURRENT UNSPECIFIED 11/29/2012 GOMEZ LEE, TIM M V58.69 MEDICATION HIGH RISK 11/29/2012 MORRIS DO VENKAT K 296.30 MO DEPRESSIVE RECURRENT UNSPECIFIED 11/29/2012 MORRIS DO VENKAT K V58.69 MEDICATION HIGH RISK 11/29/2012 EMMA FERNANDO APRN 296.30 MO DEPRESSIVE RECURRENT UNSPECIFIED 11/29/2012 EMMA FERNANDO APRN V58.69 MEDICATION HIGH RISK 11/29/2012 EMMA FERNANDO APRN 296.30 MO DEPRESSIVE RECURRENT UNSPECIFIED 11/29/2012 EMMA FERNANDO APRN V58.69 MEDICATION HIGH RISK 11/29/2012 MORRIS DO VENKAT K 296.30 MO DEPRESSIVE RECURRENT UNSPECIFIED 11/29/2012 MORRIS DO VENKAT K V58.69 MEDICATION HIGH RISK 11/29/2012 ROSIO IRBY APRN 296.30 MO DEPRESSIVE RECURRENT UNSPECIFIED 11/29/2012 ROSIO IRBY APRN V58.69 MEDICATION HIGH RISK 11/29/2012 EMMA FERNANDO APRN 296.30 MO DEPRESSIVE RECURRENT UNSPECIFIED 11/29/2012 EMMA FERNANDO APRN V58.69 MEDICATION HIGH RISK 11/29/2012 MAHAMED WHITMORE ROSIO T 296.30 MO DEPRESSIVE RECURRENT UNSPECIFIED 11/29/2012 MAHAMED WHITMORE ROSIO T V58.69 MEDICATION HIGH RISK 11/29/2012 MAHAMED WHITMORE, ROSIO T 296.30 MO DEPRESSIVE RECURRENT UNSPECIFIED 11/29/2012 ROSIO IRBY APRN T V58.69 MEDICATION HIGH RISK 11/29/2012 [employer], NERISSA 296.30 MO DEPRESSIVE RECURRENT UNSPECIFIED 11/29/2012 [employer], NERISSA V58.69 MEDICATION HIGH RISK 11/29/2012 ROSIO IRBY APRN T 296.30 MO DEPRESSIVE RECURRENT UNSPECIFIED 11/29/2012 ROSIO IRBY APRN T V58.69 MEDICATION HIGH RISK 11/29/2012 MAHAMED WHITMORE ROSIO T 296.30 MO DEPRESSIVE RECURRENT UNSPECIFIED 11/29/2012 MAHAMED WHITMORE ROSIO T V58.69 MEDICATION HIGH RISK 11/29/2012 [employer]I [employer] 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, NERISSA 296.30 MO DEPRESSIVE RECURRENT UNSPECIFIED 11/29/2012 [employer] OFFICER, NERISSA V58.69 MEDICATION HIGH RISK 11/29/2012 MAHAMED WHITMORE ROSIO T 296.30 MO DEPRESSIVE RECURRENT UNSPECIFIED 11/29/2012 MAHAMED WHITMORE ROSIO T V58.69 MEDICATION HIGH RISK 11/29/2012 MAHAMED WHITMORE ROSIO T 296.30 MO DEPRESSIVE RECURRENT UNSPECIFIED 11/29/2012 MAHAMED WHITMORE ROSIO T V58.69 MEDICATION HIGH RISK 11/29/2012 MAHAMED WHITMORE ROSIO T 296.30 MO DEPRESSIVE RECURRENT UNSPECIFIED 11/29/2012 MAHAMED WHITMORE ROSIO T V58.69 MEDICATION HIGH RISK 11/29/2012 [employer]ILL[employer] OFFICER, NERISSA 296.30 MO DEPRESSIVE RECURRENT UNSPECIFIED 11/29/2012 LU[employer]I [employer]ILL[employer] OFFICER, NERISSA V58.69 MEDICATION HIGH RISK 11/29/2012 [employer]I [employer] OFFICER, NERISSA 296.30 MO DEPRESSIVE RECURRENT UNSPECIFIED 11/29/2012 [employer]I [employer] OFFICER, NERISSA V58.69 MEDICATION HIGH RISK 01/14/2013 GOMEZ LEE, TIM [place] Ot 041.12 METHICILLIN RESISTANT STAPHYLOCOCCUS AUR 01/14/2013 TIM DYER MD Ot 070.70 UNSPECIFIED VIRAL HEPATITIS C WITHOUT HE 01/14/2013 TIM DYER MD Ot 275.2 DIS MAGNESIUM METABOLISM 01/14/2013 TIM DYER MD Ot 276.51 DEHYDRATION 01/14/2013 TIM DYER MD Ot 288.1 FUNCTION DIS NEUTROPHILS 01/14/2013 TIM DYER MD Ot 300.00 ANXIETY STATE NOS 01/14/2013 TIM DYER MD Ot 311 DEPRESSIVE DISORDER NEC 01/14/2013 TIM DYER MD Ot 345.90 EPILEPSY UNSPEC W/O MENTION INTRACTABLE 01/14/2013 TIM DYER MD Ot 401.9 HYPERTENSION NOS 01/14/2013 TIM DYER MD Ot 414.01 CORONARY ATHEROSCLEROSIS OF [place] CORON 01/14/2013 TIM DYER MD Ot 493.90 ASTHMA, UNSPECIFIED 01/14/2013 TIM DYER MD Ot 593.9 RENAL URETERAL DIS NOS 01/14/2013 TIM DYER MD Ot 682.6 CELLULITIS OF LEG 01/14/2013 TIM DYER MD Ot V04.81 ND FOR PROPHYLACTIC VACCIN AND INOCULATI 01/14/2013 TIM DYER MD Ot V45.82 PERCUTANEOUS TRANSLUM CORON ANGIOPLASTY 01/24/2013 [...] AND ABSCESS OF LEG EXCEPT FOOT 03/05/2013 ABDULLAHI WHITMORE EMMA PONCHO 296.32 MO DEPRESSIVE RECURRENT MODERATE 03/05/2013 EMMA FERNANDO APRN 300.3 AN OBCESS COMP DIS 03/05/2013 FERNANDORICK WHITMORE EMMA PONCHO 296.32 MO DEPRESSIVE RECURRENT MODERATE 03/05/2013 FERNANDORICK WHITMORE EMMA PONCHO 300.3 AN OBCESS COMP DIS 03/05/2013 VENKAT MORRIS DO K 296.32 MO DEPRESSIVE RECURRENT MODERATE 03/05/2013 VENKAT MORRIS DO K 300.3 AN OBCESS COMP DIS 03/05/2013 ROSIO IRBY APRN 296.32 MO DEPRESSIVE RECURRENT MODERATE 03/05/2013 ROSIO IRBY APRN 300.3 AN OBCESS COMP DIS 03/05/2013 ABDULLAHI WHITMORE EMMA PONCHO 296.32 MO DEPRESSIVE RECURRENT MODERATE 03/05/2013 EMMA FERNANDO APRN 300.3 AN OBCESS COMP DIS 03/05/2013 ROSIO IRBY APRN 296.32 MO DEPRESSIVE RECURRENT MODERATE 03/05/2013 ROSIO IRBY APRN 300.3 AN OBCESS COMP DIS 03/05/2013 ROSIO IRBY APRN 296.32 MO DEPRESSIVE RECURRENT MODERATE 03/05/2013 ROSIO IRBY APRN T 300.3 AN OBCESS COMP DIS 03/05/2013 NERISSA MEYERS APRN 296.32 MO DEPRESSIVE RECURRENT MODERATE 03/05/2013 NAZIA MEYERS APRNETTE 300.3 AN OBCESS COMP DIS 03/05/2013 ROSIO IRBY APRN T 296.32 MO DEPRESSIVE RECURRENT MODERATE 03/05/2013 ROSIO IRBY APRN T 300.3 AN OBCESS COMP DIS 03/05/2013 ROSIO IRYB APRN T 296.32 MO DEPRESSIVE RECURRENT MODERATE 03/05/2013 ROSIO IRBY APRN T 300.3 AN OBCESS COMP DIS 03/05/2013 NAZIA MEYERS APRNETTE 296.32 MO DEPRESSIVE RECURRENT MODERATE 03/05/2013 NERISAS MEYERS APRN 300.3 AN OBCESS COMP DIS [...] APRN 300.3 AN OBCESS COMP DIS 03/05/2013 NAZIA MEYERS APRNETTE 296.32 MO DEPRESSIVE RECURRENT MODERATE 03/05/2013 NERISSA MEYERS APRN 300.3 AN OBCESS COMP DIS 03/21/2013 MOHINDER MENA MANAGER EDITORIAL Ot 041.12 METHICILLIN RESISTANT STAPHYLOCOCCUS AUR 03/21/2013 MOHINDER MENA MANAGER EDITORIAL Ot 682.6 CELLULITIS OF LEG 03/30/2013 NICKO LEE, DEDE Mar Ot 599.71 GROSS HEMATURIA 03/30/2013 DEDE MAHARAJ MD Ot 724.2 LUMBAGO 03/30/2013 DEDE MAHARAJ MD Ot 724.4 LUMBOSACRAL NEURITIS NOS 07/22/2013 VENKAT MORRIS DO Ot 070.70 UNSPECIFIED VIRAL HEPATITIS C WITHOUT HE 07/22/2013 VENKAT MORRIS DO Ot 276.8 HYPOPOTASSEMIA 07/22/2013 VENKAT MORRIS DO Ot 300.00 ANXIETY STATE NOS 07/22/2013 VENKAT MORRIS DO Ot 303.90 ALCOH DEP NEC/NOS-UNSPEC 07/22/2013 VENKAT MORRIS DO Ot 305.70 AMPHETAMINE ABUSE-UNSPEC 07/22/2013 VENKAT MORRIS DO Ot 345.90 EPILEPSY UNSPEC W/O MENTION INTRACTABLE 07/22/2013 VENKAT MORRIS DO Ot 401.9 HYPERTENSION NOS 07/22/2013 VENKAT MORRIS DO Ot 414.01 CORONARY ATHEROSCLEROSIS OF [place] CORON 07/22/2013 VENKAT MORRIS DO Ot 572.2 HEPATIC ENCEPHALOPATHY 07/22/2013 VENKAT MORRIS DO Ot 584.9 ACUTE RENAL FAILURE, UNSPECIFIED 07/22/2013 [...] 296.32 MO DEPRESSIVE RECURRENT MODERATE 01/27/2014 MAHAMED [employer]ILL[employer] OFFICER, ROSIO T 296.32 MO DEPRESSIVE RECURRENT MODERATE 01/27/2014 MAHAMED [employer] ARTILL[employer] OFFICER, ROSIO T 296.32 MO DEPRESSIVE RECURRENT MODERATE 01/27/2014 MAHAMED [employer] ARTILLERY OFFICER, ROSIO T 296.32 MO DEPRESSIVE RECURRENT MODERATE 01/27/2014 LU[employer]I [employer] OFFICER, NERISSA 296.32 MO DEPRESSIVE RECURRENT MODERATE 01/27/2014 LUIGI [employer] ARTILL[employer] OFFICER, NERISSA 296.32 MO DEPRESSIVE RECURRENT MODERATE 02/01/2014 MAHAMED [employer] ARTILL[employer] OFFICER, ROSIO T V04.81 FLU SHOT 02/01/2014 LU[employer]I [employer] OFFICER, NERISSA V04.81 FLU SHOT 02/01/2014 MAHAMED [employer] OFFICER, ROSIO T V04.81 FLU SHOT 02/01/2014 MAHAMED [employer] ARTILLERY OFFICER, ROSIO T V04.81 FLU SHOT 02/01/2014 MAHAMED [employer] ARTILLERY OFFICER, ROSIO T V04.81 FLU SHOT 02/01/2014 LUIGI [employer] ART[employer] OFFICER, NERISSA V04.81 FLU SHOT 02/01/2014 LUIGI [employer] OFFICER, NERISSA V04.81 FLU SHOT 03/17/2014 ROSIO IRBY MANAGER EDITORIAL Ot 070.54 03/17/2014 ROSIO IRBY MANAGER EDITORIAL Ot 401.1 03/17/2014 ROSIO IRBY MANAGER EDITORIAL Ot 780.79 03/17/2014 ROSIO IRBY MANAGER EDITORIAL Ot 785.2 03/17/2014 ROSIO IRBY MANAGER EDITORIAL Ot 786.50 03/17/2014 Ot 041.12 03/17/2014 Ot 682.6 03/18/2014 MARIA FERNANDA LEE, LEIGHTON T Ot 276.8 HYPOPOTASSEMIA 03/18/2014 MARIA FERNANDA LEE, LEIGHTON T Ot 584.9 ACUTE RENAL FAILURE, UNSPECIFIED 03/18/2014 MARIA FERNANDA LEE, LEIGHTON T Ot 599.0 URIN TRACT INFECTION NOS 03/18/2014 MARIA FERNANDA LEE, LEIGHTON T Ot 780.97 ALTERED MENTAL STATUS 03/18/2014 ROSIO IRBY MANAGER EDITORIAL Ot 070.54 03/18/2014 ROSIO IRBY MANAGER EDITORIAL Ot 401.1 03/18/2014 ROSIO IRBY MANAGER EDITORIAL Ot 780.79 03/18/2014 ROSIO IRBY MANAGER EDITORIAL Ot 785.2 03/18/2014 ROSIO IRBY MANAGER EDITORIAL Ot 786.50 03/18/2014 Ot 041.12 03/18/2014 Ot 682.6 03/29/2014 ROSIO IRBY APRN T 276.8 HYPOPOTASSEMIA 03/29/2014 MAHAMED [employer] OFFICER, ROSIO T 723.1 PAIN NECK 03/29/2014 MAHAMED [employer] ART[employer] OFFICER, ROSIO T 276.8 HYPOPOTASSEMIA 03/29/2014 MAHAMED [employer] ARTILLERY OFFICER, ROSIO T 723.1 PAIN NECK 03/29/2014 LU[employer]I [employer] ART[employer] OFFICER, NERISSA 276.8 HYPOPOTASSEMIA 03/29/2014 LUIGI [employer] ARTILLERY OFFICER, NERISSA 723.1 PAIN NECK 03/29/2014 LUIGI [employer] ARTILLERY OFFICER, NERISSA 276.8 HYPOPOTASSEMIA 03/29/2014 LU[employer]I [employer] ARTILLERY OFFICER, NERISSA 723.1 PAIN NECK 04/20/2014 LU[employer]I [employer] OFFICER, NERISSA 296.35 MO DEPRESSIVE RECURRENT IN PART OR UNSPECIFIED REMISSION 04/20/2014 LU[employer]I [employer] OFFICER, NERISSA 300.02 AN GEN ANXIETY 04/20/2014 LU[employer]I [employer] OFFICER, NERISSA 296.35 MO DEPRESSIVE RECURRENT IN PART OR UNSPECIFIED REMISSION 04/20/2014 LU[employer]I [employer] ART[employer] OFFICER, NERISSA 300.02 AN GEN ANXIETY 02/15/2015 ROSIO IRBYP Ot 070.54 02/15/2015 ROSIO IRBYP Ot 401.1 02/15/2015 ROSIO IRBYP Ot 780.79 02/15/2015 ROSIO IRBYP Ot 785.2 02/15/2015 ROSIO IRBYP Ot 786.50 02/15/2015 Ot 041.12 02/15/2015 Ot 682.6 02/16/2015 ROSIO IBRYP Ot 070.54 02/16/2015 ROSIO IRBYP Ot 401.1 02/16/2015 ROSIO IRBY MANAGER EDITORIAL Ot 780.79 02/16/2015 ROSIO IRBY MANAGER EDITORIAL Ot 785.2 02/16/2015 ROSIO IRBYP Ot 786.50 02/16/2015 Ot 041.12 02/16/2015 Ot 682.6 02/21/2015 ROSIO IRBY MANAGER EDITORIAL Ot B18.2 03/13/2015 ROSIO IRBYP Ot B18.2 03/27/2015 ROSIO IRBYP Ot B18.2 08/02/2016 ROSIO IRBYP Ot 070.54 CHRONIC HEPATITIS C W/O HEPATIC COMA 08/02/2016 ROSIO IRBYP Ot 401.1 BENIGN HYPERTENSION 08/02/2016 MAHAMED ROSIO Otero MANAGER EDITORIAL Ot 780.79 OTH MALAISE FATIGUE 08/02/2016 MAHAMED ROSIO Otero MANAGER EDITORIAL Ot 785.2 CARDIAC MURMURS NEC 08/02/2016 MAHAMED ROSIO Otero MANAGER EDITORIAL Ot 786.50 CHEST PAIN NOS 08/02/2016 Ot 041.12 METHICILLIN RESISTANT STAPHYLOCOCCUS AUR 08/02/2016 Ot 682.6 CELLULITIS OF LEG 08/02/2016 ROSIO IRBY MANAGER EDITORIAL Ot B18.2 CHRONIC VIRAL HEPATITIS C 08/02/2016 TARA SANABRIA MD Ot H44.9 UNSPECIFIED DISORDER OF GLOBE 08/02/2016 TARA SANABRIA MD Ot I10 ESSENTIAL (PRIMARY) HYPERTENSION 08/02/2016 TARA SANABRIA MD Ot J06.9 ACUTE UPPER RESPIRATORY INFECTION, UNSPE 08/02/2016 TARA SANABRIA MD Ot R06.00 DYSPNEA, UNSPECIFIED 08/02/2016 TARA SANABRIA MD Ot Z79.82 ETCHER AIRCRAFT (CURRENT) USE OF ASPIRIN 08/02/2016 TARA SANABRIA MD A Ot Z79.899 OTHER CUSTODIAL (CURRENT) DRUG THERAPY 08/02/2016 MAHAMED ROSIO Otero MANAGER EDITORIAL Ot 070.54 CHRONIC HEPATITIS C W/O HEPATIC COMA 08/02/2016 MAHAMED ROSIO Otero MANAGER EDITORIAL Ot 401.1 BENIGN HYPERTENSION 08/02/2016 MAHAMED ROSIO Otero MANAGER EDITORIAL Ot 780.79 OTH MALAISE FATIGUE 08/02/2016 MAHAMED ROSIO Otero MANAGER EDITORIAL Ot 785.2 CARDIAC MURMURS NEC 08/02/2016 MAHAMED ROSIO Otero MANAGER EDITORIAL Ot 786.50 CHEST PAIN NOS 08/02/2016 Ot 041.12 METHICILLIN RESISTANT STAPHYLOCOCCUS AUR 08/02/2016 Ot 682.6 CELLULITIS OF LEG 08/02/2016 ROSIO IRBY MANAGER EDITORIAL Ot B18.2 CHRONIC VIRAL HEPATITIS C 08/04/2016 TARA SANABRIA MD A Ot H44.9 UNSPECIFIED DISORDER OF GLOBE 08/04/2016 TARA SANABRIA MD Ot I10 ESSENTIAL (PRIMARY) HYPERTENSION 08/04/2016 TARA SANABRIA MD A Ot J06.9 ACUTE UPPER RESPIRATORY INFECTION, UNSPE 08/04/2016 TARA SANABRIA MD A Ot R06.00 DYSPNEA, UNSPECIFIED 08/04/2016 TARA SANABRIA MD Ot Z79.82 CUSTODIAL (CURRENT) USE OF ASPIRIN 08/04/2016 TARA SANABRIA MD Ot Z79.899 OTHER CUSTODIAL (CURRENT) DRUG THERAPY 09/16/2016 TARA SANABRIA MD Ot H44.9 UNSPECIFIED DISORDER OF GLOBE 09/16/2016 TARA SANABRIA MD Ot I10 ESSENTIAL (PRIMARY) HYPERTENSION 09/16/2016 TARA SANABRIA MD Ot J06.9 ACUTE UPPER RESPIRATORY INFECTION, UNSPE 09/16/2016 TARA SANABRIA MD Ot R06.00 DYSPNEA, UNSPECIFIED 09/16/2016 TARA SANABRIA MD Ot Z79.82 ETCHER AIRCRAFT (CURRENT) USE OF ASPIRIN 09/16/2016 TARA SANABRIA MD Ot Z79.899 OTHER CUSTODIAL (CURRENT) DRUG THERAPY 02/08/2018 ROSIO IRBY MANAGER EDITORIAL Ot 070.54 CHRONIC HEPATITIS C W/O HEPATIC COMA 02/08/2018 ROSIO IRBY MANAGER EDITORIAL Ot 401.1 BENIGN HYPERTENSION 02/08/2018 ROSIO IRBY MANAGER EDITORIAL Ot 780.79 OTH MALAISE FATIGUE 02/08/2018 ROSIO IRBY MANAGER EDITORIAL Ot 785.2 CARDIAC MURMURS NEC 02/08/2018 ROSIO IRBY MANAGER EDITORIAL Ot 786.50 CHEST PAIN NOS 02/08/2018 Ot 041.12 METHICILLIN RESISTANT STAPHYLOCOCCUS AUR 02/08/2018 Ot 682.6 CELLULITIS OF LEG 02/08/2018 ROSIO IRBY MANAGER EDITORIAL Ot B18.2 CHRONIC VIRAL HEPATITIS C 02/08/2018 SCOTTIE JAMILIS Ot B19.20 UNSPECIFIED VIRAL HEPATITIS C WITHOUT HE 02/08/2018 LUIS ENRIQUE JAMIL Ot F17.200 NICOTINE DEPENDENCE, UNSPECIFIED, UNCOMP 02/08/2018 LUIS ENRIQUE JAMIL Ot F32.9 MAJOR DEPRESSIVE DISORDER, SINGLE EPISOD 02/08/2018 SCOTTIE JAMILIS Ot F41.9 ANXIETY DISORDER, UNSPECIFIED 02/08/2018 SCOTTIE JAMILIS Ot G47.30 SLEEP APNEA, UNSPECIFIED 02/08/2018 LUIS ENRIQUE JAMIL Ot I11.0 HYPERTENSIVE HEART DISEASE WITH HEART FA 02/08/2018 LUIS ENRIQUE JAMIL Ot I50.9 HEART FAILURE, UNSPECIFIED 02/08/2018 LUIS ENRIQUE JAMIL Ot J44.9 CHRONIC OBSTRUCTIVE PULMONARY DISEASE, U 02/08/2018 LUIS ENRIQUE JAMIL Ot N39.0 URINARY TRACT INFECTION, SITE NOT SPECIF 02/08/2018 BERNOT, LUIS ENRIQUE Ot R11.2 NAUSEA WITH VOMITING, UNSPECIFIED 02/08/2018 BERNOT, LUIS ENRIQUE Ot Z79.82 ETCHER AIRCRAFT (CURRENT) USE OF ASPIRIN 02/08/2018 BERNOT, LUIS ENRIQUE Ot Z86.73 PRSNL HX OF TIA (TIA), AND CEREB INFRC W 02/08/2018 BERNOT, LUIS ENRIQUE Ot Z95.5 PRESENCE OF CORONARY ANGIOPLASTY IMPLANT 02/10/2018 LOULOU, LUIS ENRIQUE Ot B19.20 UNSPECIFIED VIRAL HEPATITIS C WITHOUT HE 02/10/2018 BERNMOLINA, LUIS ENRIQUE Ot F17.200 NICOTINE DEPENDENCE, UNSPECIFIED, UNCOMP 02/10/2018 BERNMOLINA, LUIS ENRIQUE Ot F32.9 MAJOR DEPRESSIVE DISORDER, SINGLE EPISOD 02/10/2018 BERNOT, LUIS ENRIQUE Ot F41.9 ANXIETY DISORDER, UNSPECIFIED 02/10/2018 BERNMOLINA, LUIS ENRIQUE Ot G47.30 SLEEP APNEA, UNSPECIFIED 02/10/2018 BERNOT, LUIS ENRIQUE Ot I11.0 HYPERTENSIVE HEART DISEASE WITH HEART FA 02/10/2018 LOULOU LUIS ENRIQUE Ot I50.9 HEART FAILURE, UNSPECIFIED 02/10/2018 LOULOU, LUIS ENRIQUE Ot J44.9 CHRONIC OBSTRUCTIVE PULMONARY DISEASE, U 02/10/2018 BERNMOLINA, LUIS ENRIQUE Ot N39.0 URINARY TRACT INFECTION, SITE NOT SPECIF 02/10/2018 LOULOU, LUIS ENRIQUE Ot R11.2 NAUSEA WITH VOMITING, UNSPECIFIED 02/10/2018 BERNMOLINA, LUIS ENRIQUE Ot Z79.82 ETCHER AIRCRAFT (CURRENT) USE OF ASPIRIN 02/10/2018 LOULOU, LUIS ENRIQUE Ot Z86.73 PRSNL HX OF TIA (TIA), AND CEREB INFRC W 02/10/2018 ALFONSOOT, LUIS ENRIQUE Ot Z95.5 PRESENCE OF CORONARY ANGIOPLASTY IMPLANT Procedures Code Description Performed By Performed On 94.62 ALCOHOL DETOXIFICATION 05/10/2012 87082 ROUTINE VENIPUNCTURE 07/27/2012 46466 CMP 07/27/2012 44148 MAGNESIUM 07/27/2012 25021 CBC 07/27/2012 18382 ROUTINE VENIPUNCTURE 09/02/2012 66914 CBC 09/02/2012 61955 CMP 09/02/2012 86091 LIPID PANEL 09/02/2012 [id number] GFR CALC (RESULT ONLY) 09/02/2012 83774 VITAMIN D 25-HYDROXY (D2,D3 , TOTAL) 09/02/2012 14703 TSH 09/02/2012 26370 EKG, TRACING (IN-HOUSE) 11/04/2012 06621 ECHO 2D 11/04/2012 01956 ROUTINE VENIPUNCTURE 11/10/2012 42374 XRAY CHEST 2 VIEW 11/10/2012 49814 PT/INR 11/10/2012 65770 CALCIUM IONIZED 11/11/2012 75213 CALCIUM 11/11/2012 45595 HEP C PCR QUANT (SERIAL) 11/17/2012 72542 A1C (IN-HOUSE) 11/24/2012 39728 ROUTINE VENIPUNCTURE 11/29/2012 73221 CMP 11/29/2012 60285 MAGNESIUM 11/29/2012 06995 TSH 11/29/2012 39730 CBC 11/29/2012 INFECTIOU SWEET, CLINIC 12/06/2012 48925 ROUTINE VENIPUNCTURE 12/07/2012 29135 AFP TUMOR MARKER 12/08/2012 56494 GENOTYPE DNA HEPATITIS C 12/09/2012 86.04 OTHER SKIN SUBQ I D 01/13/2013 Physical Wound Care, [facility] 02/21/2013 94.62 ALCOHOL DETOXIFICATION 07/19/2013 29169 ROUTINE VENIPUNCTURE 12/07/2013 83144 PTH (intact) (ORDER ONLY) 12/07/2013 71473 URINE DRUG SCREEN (IN-HOUSE ) 12/07/2013 [id number] GFR CALC (RESULT ONLY) 12/07/2013 86564 CMP 12/07/2013 13783 LIPID PANEL 12/07/2013 71174 CBC 12/07/2013 03748 TSH 12/07/2013 86102 HEP B SURFACE ANTIGEN (RML) 12/07/2013 80981 HEP A ANTIBODY, IGM (RML) 12/07/2013 17768 HIV ANTIBODIES (RML) 12/07/2013 4221389 CALCIUM (RESULT ONLY) 12/08/2013 3822994 PTH INTACT KIKO (RESULT ONLY) 12/08/2013 89656 HEP B SURFACE ANTIBODY 12/08/2013 28773 ROUTINE VENIPUNCTURE 01/30/2014 32867 HEP C PCR QUANT (SERIAL) 01/30/2014 01750 URINE DRUG SCREEN (IN-HOUSE ) 01/30/2014 95178 URINE DRUG SCREEN (IN-HOUSE ) 03/13/2014 88502 ROUTINE VENIPUNCTURE 2014 73226 URINE DRUG SCREEN (IN-HOUSE ) 2014 [id number] GFR CALC (RESULT ONLY) 2014 70975 [facility] 2014 23194 [facility] 2014 Results Test Result Range CBC With [...] Uric Acid, Serum 8.6 mg/dL 3.7-8.6 Sedimentation Rate-[place] - 01/26/17 11:31 Sedimentation Rate-[facility] 19 mm/hr 0-30 CBC - 03/16/17 10:15 WHITE BLOOD CELL COUNT 8.6 Thousand/uL 3.8-10.8 RED BLOOD CELL COUNT 5.06 Million/uL 4.20-5.80 HEMOGLOBIN 15.9 g/dL 13.2-17.1 HEMATOCRIT 45.3 % 38.5-50.0 MCV 89.5 fL 80.0-100.0 MCH 31.4 pg 27.0-33.0 MCHC 35.1 g/dL 32.0-36.0 RDW 12.5 % 11.0-15.0 PLATELET COUNT 190 Thousand/uL 140-400 MPV 10.6 fL 7.5-12.5 ABSOLUTE NEUTROPHILS 5134 cells/uL 9956-1133 ABSOLUTE LYMPHOCYTES 2589 cells/uL 850-3900 ABSOLUTE MONOCYTES [...] medMATCH Buprenorphine CONSISTENT NRG Ethyl Glucuronide (ETG) 889164 ng/mL <500 medMATCH ETG INCONSISTENT NRG Ethyl Sulfate (ETS) 68997 ng/mL <100 medMATCH ETS INCONSISTENT NRG Complete [...] urinalysis with reflex to culture YES NRG Bacterial urine culture - 02/08/18 19:41 Bacterial urine culture NG NRG PDM - 09 PANEL (PROFILE 1) - 02/15/18 14:41 Prescribed Drug 1 Xanax(TM) NRG Creatinine 76.6 mg/dL > or=20.0 pH 6.01 4.5 - 9.0 Oxidant NEGATIVE mcg/mL <200 Amphetamines NEGATIVE ng/mL <500 medMATCH Amphetamines CONSISTENT NRG Benzodiazepines POSITIVE ng/mL <100 Marijuana Metabolite POSITIVE ng/mL <20 Cocaine Metabolite NEGATIVE ng/mL <150 medMATCH Cocaine Metab CONSISTENT NRG Opiates NEGATIVE ng/mL <100 medMATCH Opiates CONSISTENT NRG Oxycodone NEGATIVE ng/mL <100 medMATCH Oxycodone CONSISTENT NRG COMMENT NRG Alphahydroxyalprazolam 43 ng/mL <25 medMATCH aOH alprazolam CONSISTENT NRG [...] NEGATIVE ng/mL <50 medMATCH Temazepam CONSISTENT NRG Marijuana Metabolite 229 ng/mL <5 medMATCH Marijuana Metab INCONSISTENT NRG Barbiturates NEGATIVE ng/mL <300 medMATCH Barbiturates CONSISTENT NRG Methadone Metabolite NEGATIVE ng/mL <100 medMATCH Methadone Metab CONSISTENT NRG Phencyclidine NEGATIVE ng/mL <25 medMATCH Phencyclidine CONSISTENT NRG Encounters ACCT No. Visit Date/Time Discharge Status Pt. Type Provider Facility Loc./Unit Complaint [id number] 04/20/2014 10:34:00 04/20/2014 23:59:59 [facility] Outpatient NERISSA MEYERS APRN [id number] 04/20/2014 10:34:00 04/20/2014 23:59:59 [facility] Outpatient NERISSA MEYERS APRN [id number] 2014 12:01:00 2014 23:59:59 [facility] Outpatient ROSIO IRBY APRN [id number] 03/29/2014 16:18:00 03/29/2014 23:59:59 CLS Outpatient ROSIO IRBY APRN [id number] 03/13/2014 12:11:00 03/13/2014 23:59:59 CLS Outpatient ROSIO IRBY APRN [id number] 02/28/2014 09:53:00 02/28/2014 23:59:59 [facility] Outpatient NERISSA MEYERS APRN [id number] 02/01/2014 09:53:00 02/01/2014 23:59:59 CLS Outpatient MAHAMED [employer] ARTILLERY OFFICERROSIO Salazar [id number] 01/30/2014 15:41:00 01/30/2014 23:59:59 CLS Outpatient ROSIO IRBY APRN [id number] 01/27/2014 12:54:00 01/27/2014 23:59:59 CLS Outpatient LUIGI [employer] DEFENSE ARTILLERY OFFICERNERISSA Salazar [id number] 12/07/2013 10:26:00 12/07/2013 23:59:59 CLS Outpatient ROSIO IRBY APRN [id number] 11/09/2013 11:32:00 11/09/2013 23:59:59 CLS Outpatient ROSIO IRBY APRN [id number] 09/19/2013 10:14:00 09/19/2013 23:59:59 CLS Outpatient ABDULLAHI AIR DEFENSE ARTILLERY OFFICEREMMA [id number] 09/16/2013 12:05:00 09/16/2013 23:59:59 CLS Outpatient ROSIO IRBY APRN [id number] 08/09/2013 08:53:00 08/09/2013 23:59:59 CLS Outpatient VENKAT MORRIS DO [id number] 06/18/2013 13:39:00 06/18/2013 23:59:59 CLS Outpatient ABDULLAHI [employer]ENSE ARTILLERY OFFICEREMMA [id number] 03/05/2013 09:59:00 03/05/2013 23:59:59 CLS Outpatient ABDULLAHI [employer] ARTILLERY OFFICEREMMA [id number] 02/15/2013 05:41:00 02/15/2013 23:59:59 CLS Outpatient TIM DEYR MD [id number] 01/28/2013 09:42:00 01/28/2013 23:59:59 CLS Outpatient ROSIO IRBY APRN [id number] 01/24/2013 15:09:00 01/24/2013 23:59:59 CLS Outpatient VENKAT MORRIS DO [id number] 01/21/2013 00:00:00 01/21/2013 23:59:59 CLS Outpatient VENKAT MORRIS DO [id number] 12/29/2012 11:17:00 12/29/2012 23:59:59 CLS Outpatient JB TUTTLE DO [id number] 05/26/2012 13:16:00 05/26/2012 23:59:59 CLS Outpatient SAUD STEEL MD [id number] 03/03/2012 00:00:00 03/03/2012 23:59:59 CLS Outpatient [id number] 01/30/2012 09:03:00 01/30/2012 23:59:59 CLS Outpatient [id number] 12/07/2012 12:02:00 Document Registration [id number] 12/06/2012 11:13:00 Document Registration [id number] 11/29/2012 09:36:00 Document Registration [id number] 11/04/2012 00:00:00 Document Registration [id number] 09/22/2012 10:15:00 Document Registration [id number] 09/02/2012 08:53:00 Document Registration [id number] 08/27/2012 09:16:00 Document Registration [id number] 08/03/2012 09:28:00 Document Registration [id number] 07/27/2012 10:22:00 Document Registration [id number] 08/04/2018 08:00:00 08/04/2018 23:59:59 CLS Outpatient ROSIO IRBY APRN [facility] [id number] 02/15/2018 14:00:00 Document Registration [id number] 07/17/2017 08:40:00 Document Registration [id number] 03/16/2017 10:40:00 Document Registration [id number] 01/26/2017 10:50:00 Document Registration [id number] 01/27/2017 10:10:00 Document Registration [id number] 02/03/2016 07:05:00 Document Registration [id number] 05/10/2016 08:36:00 Document Registration [id number] 12/09/2016 08:06:00 Document Registration [id number] 05/10/2016 10:07:00 Document Registration [id number] 02/08/2018 18:47:00 02/08/2018 21:10:00 DIS Emergency LUIS ENRIQUE JAMIL [facility] ER N/V/D [id number] 08/02/2016 19:28:00 08/02/2016 20:55:00 DIS Emergency TARA SANABRIA MD [facility] ER TROUBLE BREATHING [id number] 02/16/2015 11:21:00 02/16/2015 23:59:59 CLS Outpatient ROSIO IRBY [facility] RAD CHRONIC HEP C, WORSENING AMMONIA LEVELS [id number] 03/17/2014 18:03:00 03/18/2014 00:45:00 DIS Emergency MARIA FERNANDA LEE, LEIGHTON Otero [facility] ER AMS [id number] 07/19/2013 20:18:00 07/22/2013 13:05:00 DIS Inpatient VENKAT MORRIS DO [facility] 4TH AMS,ACUTE ON CHRONIC HEPATITIS,ARF [id number] 03/30/2013 09:46:00 03/30/2013 11:06:00 DIS Emergency NICKO LEE, DEDE Mar [facility] ER BACK PAIN [id number] 03/07/2013 11:00:00 03/21/2013 11:39:00 DIS Outpatient MOHINDER MENA [facility] WOUNDCARE CELLULITIS, LEFT LEG [id number] 01/09/2013 21:12:00 01/14/2013 13:00:00 DIS Inpatient GOMEZ LEE, TIM North [facility] 4TH CELLULITIS L LEG, DEHYDRATION [id number] 11/29/2012 10:46:00 11/29/2012 23:59:59 CLS Outpatient ROSIO IRBY [facility] CARD CP, MURMUR [id number] 11/17/2012 14:36:00 11/17/2012 16:10:00 DIS Emergency NICKO LEE, DEDE Mar [facility] ER MULTIPLE COMPLAINTS [id number] 11/03/2012 21:09:00 11/04/2012 06:35:00 DIS Outpatient ROSIO IRBY [facility] SLEEP WINDY,EXCESSIVE DAYTIME SLEEPINESS,MORNING HEADACHE [id number] 03/22/2013 14:00:00 Document Registration [id number] 05/10/2012 14:34:00 Document Registration [id number] 12/05/2011 14:14:00 Document Registration
[2018-08-15] MEDS ORDERED: HYDR-4226 PO (15:50)
[2018-08-15] MEDS ORDERED: HYDROcodone/APAP 5 MG/325 MG (LORTAB) TAB PO ONE (16:45)
--- NOTE | 2018-08-15 16:53 | Diagnostic Imaging Report ---
PATIENT HISTORY: Fall, right knee pain. TECHNIQUE: Three views of the right knee. COMPARISON: None. FINDINGS: No acute fracture or dislocation is seen in the right knee. Alignment appears normal. Joint spaces are preserved. There is no right knee joint effusion. A small joint body is noted, posteriorly. There is chondrocalcinosis. IMPRESSION: No acute osseous abnormality is seen in the right knee. Dictated by: Dictated on workstation # [id number]
--- NOTE | 2018-08-15 16:54 | Diagnostic Imaging Report ---
EXAM: Foot, right, 3 view. INDICATION: Fall. Right foot pain. COMPARISON: None. FINDINGS: Lucency and mild angulation through the base of the right fourth proximal phalanx. No other fractures. No suspicious osteoblastic or lytic lesions. Soft tissue shadows are unremarkable. IMPRESSION: Mildly angulated fracture through the base of the right fourth proximal phalanx. Dictated by: Dictated on workstation # [id number]
[2018-08-15 16:57] VITALS: BP 147/96
== END 2018-08-15 16:57 | disposition home or self-care (01) ==
LOC: EDUNIT# 15:13 → ER 15:15
DX: S92.511A Displaced fracture of proximal phalanx of right lesser toe(s), initial encounter for closed fracture (principal); S80.01XA Contusion of right knee, initial encounter; G47.30 Sleep apnea, unspecified; J44.9 Chronic obstructive pulmonary disease, unspecified; I11.0 Hypertensive heart disease with heart failure; I50.9 Heart failure, unspecified; B19.20 Unspecified viral hepatitis C without hepatic coma; F41.9 Anxiety disorder, unspecified; F32.9 Major depressive disorder, single episode, unspecified; Z79.82 Long term (current) use of aspirin; Z86.73 Personal history of transient ischemic attack (TIA), and cerebral infarction without residual deficits; Z95.5 Presence of coronary angioplasty implant and graft; W18.30XA Fall on same level, unspecified, initial encounter; Y92.002 Bathroom of unspecified non-institutional (private) residence as the place of occurrence of the external cause
CPT/HCPCS: 73562; 73630; 96372

== ENCOUNTER → 2019-08-18 | Outpatient (CLI) | payer MEDICARE ==
[~2019-08-18] MED LIST changes: +HYDR-4226 PO
--- NOTE | 2019-08-18 10:26 | Diagnostic Imaging Report ---
PROCEDURE: US Hepatic (Liver). TECHNIQUE: Multiple real-time grayscale images were obtained over the right upper quadrant in various projections. INDICATION: Cirrhosis of the liver There are no prior ultrasound examinations available for comparison. The CT abdomen/pelvis exam of 02/16/2015 did note a micronodular contour to the liver and raised a question of cirrhosis. On this exam, the micronodular contour of the liver is difficult to appreciate. The liver itself is not enlarged measuring 17 cm in length. There is no focal mass involving the liver and the biliary tree is not abnormally dilated. The caudate lobe may be somewhat prominent, however. Spectral and color-flow imaging of the portal vein shows the vein is patent and that there is normal directional flow within the vein. There is no evidence for cholelithiasis or acute cholecystitis and the common bile duct is not dilated. The pancreas, right kidney, aorta and inferior vena cava show no sign of an acute abnormality. There is no mass or free fluid collection evident. IMPRESSION: 1. The micronodular contour of the liver suggested on the CT exam is difficult to appreciate on this study. The liver does not appear to be enlarged but the caudate lobe does seem somewhat prominent. The possibility of cirrhosis should still be considered. 2. There is no acute abnormality of the right upper quadrant. Dictated by: Dictated on workstation # [id number]
== END ==
LOC: RAD 08:45
PROVIDERS: ATTEND Internal Medicine
DX: K74.69 Other cirrhosis of liver (principal)
CPT/HCPCS: 76705

== ENCOUNTER 2021-11-09 08:45 | Emergency (ER) | payer MEDICARE ==
[~2021-11-09] VITALS: Ht 182.8 cm; Wt 95.1 kg
[~2021-11-09 08:45] MED LIST changes: -SULF1TAB35 PO; +SULF1TAB38 PO
[2021-11-09 08:58] VITALS: BP 162/91
[2021-11-09] MEDS ORDERED: COLCHICINE 0.6 MG (COLCRYS) TABLET PO STA (09:12)
--- NOTE | 2021-11-09 10:23 | ED Lower Extremity ---
General Chief Complaint: Lower Extremity Stated Complaint: L FOOT PAIN Nursing Triage Note: Pt states that he has been dealing with gout in his left foot for over 2 weeks and it has not gotten any better. He has been taking allopurinol and it is not helping. Pain worse w/ movement and previous uric acid was elevated at his PCP office. Source: patient Exam Limitations: no limitations History of Present Illness Date Seen by Provider: Nov 09, 2021 Time Seen by Provider: 09:07 Allergies and Home Medications Allergies Coded Allergies: No Known Drug Allergies (Unverified , 12/05/11) Patient Home Medication List Alprazolam (Xanax Tablet) 1 Mg Tab, 1 MG PO TID PRN for ANXIETY, (Reported) Entered as Reported by: SHERICE GARCÍA on 07/20/13 1006 Aspirin (Aspirin Ec 81 Mg) 81 Mg Tabec, 81 MG PO DAILY, (Reported) Entered as Reported by: LUCAS SANTOS on 05/10/12 1533 Cyclobenzaprine Hcl (Cyclobenzaprine Hcl) 10 Mg Tablet, 10 MG PO BID PRN for MUS ROBER SPASMS, (Reported) Entered as Reported by: SHERICE GARCÍA on 07/20/13 0950 Escitalopram Oxalate (Escitalopram Oxalate) 20 Mg Tablet, 20 MG PO DAILY, (Reported) Entered as Reported by: CLARY CAMPO on 03/17/141917 Gabapentin (Neurontin) 300 Mg Cap, 300 MG PO BID, (Reported) Entered as Reported by: SHERICE GARCÍA on 01/10/13 0841 Gabapentin (Gabapentin) 300 Mg Capsule, 1,200 MG PO HS, (Reported) Entered as Reported by: SHERICE GARCÍA on 07/20/13 1000 Hydrochlorothiazide (Hydrochlorothiazide) 25 Mg Tablet, 25 MG PO DAILY, (Reported) Entered as Reported by: CLARY CAMPO on 03/17/141917 Hydrocodone/Acetaminophen (Hydrocodone/Acetaminophen 5 MG/325 MG TAB) 1 Each Tablet, 1 TAB PO Q6H Prescribed by: ROSIE VARELA on 08/15/18 1550 Mirtazapine (Remeron Tab) 15 Mg Tab, 15 MG PO HS, (Reported) Entered as Reported by: ELIE CROCKETT on 11/17/12 1446 Multivitamin (Multi Vitamin Daily) 1 Each Tablet, 1 TAB PO DAILY, (Reported) Entered as Reported by: SHERICE GARCÍA on 01/10/13 0843 Ondansetron (Zofran Odt) 4 Mg Tab.rapdis, 4 MG SL Q4H PRN for NAUSEA/VOMITING- 1ST LINE Prescribed by: LUIS ENRIQUE JAMIL on 02/08/182035 Propranolol Hcl (Propranolol Hcl) 40 Mg Tablet, 40 MG PO TID, (Reported) Entered as Reported by: CLARY CAMPO on 03/17/14 191 Sulfamethoxazole/Trimethoprim (Bactrim Ds Tablet) 1 Each Tablet, 1 EACH PO BID Prescribed by: LUIS ENRIQUE JAMIL on 02/08/182035 Past Jqchiiw-Uontpf-Ltbleg Hx Patient Social History Tobacco Use?: No Use of E-Cig and/or Vaping dev: No Substance use?: No Alcohol Use?: Yes Alcohol type: Hard Liquor Alcohol Frequency: Daily Pt feels they are or have been: No Immunizations Up To Date Tetanus Booster (TDap): More than 5yrs PED Vaccines UTD: No Seasonal Allergies Seasonal Allergies: Yes Past Medical History Surgeries: Yes (CARDIAC STENT) Respiratory: Yes Sleep Apnea, COPD Cardiac: Yes (CHF, CARDIAC STENT X1 ) Heart Murmur, Hypertension Neurological: Yes TIA Reproductive Disorders: No Sexually Transmitted Disease: No HIV/AIDS: No Gastrointestinal: Yes (HEPATITIS C) Hepatitis Musculoskeletal: No (FX RIGHT THUMB, LEFT LEG AND NOSE, left hip) Fractures Endocrine: No Cancer: Yes (lip, from chewing tobacco) Psychosocial: Yes Sleep Difficulties, Anxiety, Depression Integumentary: No Blood Disorders: Yes (HEPATITIS) Adverse Reaction/Blood Tranf: No Family Medical History Family history: Hypertension Heart disease No Pertinent Family Hx Physical Exam Vital Signs Vital Signs - First Documented 11/09/21 08:58 Temp 36.5 Pulse 64 Resp 16 B/P (MAP) 162/91 (114) Pulse Ox 98 O2 Delivery Room Air Capillary Refill : Less Than 3 Seconds Height, Weight, BMI Height: 6'0" Weight: 230lbs. oz. 104.079460si; 28.00 BMI Method:Stated Progress/Results/Core Measures Results/Orders My Orders Orders - LEIGHTON IRVING MD Colchicine Tablet (Colcrys Tablet) (11/09/21 09:12) Vital Signs/I&O 11/09/21 08:58 Temp 36.5 Pulse 64 Resp 16 B/P (MAP) 162/91 (114) Pulse Ox 98 O2 Delivery Room Air Blood Pressure Mean: 114 Departure Impression Primary Impression: Acute gout Qualified Codes: M10.9 - Gout, unspecified Additional Impression: Injury of toe on left foot Qualified Codes: S99.922A - Unspecified injury of left foot, initial encounter Disposition: 01 HOME, SELF-CARE Condition: Improved Departure-Patient Inst. Decision time for Depature: 10:19 Referrals: [facility] (PCP) Primary Care Physician ROSIO IRBY (Family) Primary Care Physician Patient Instructions: Gout ED, Lifestyle Changes to Manage Gout Add. Discharge Instructions: Read the attached instructions and follow the lifestyle recommendations. Drink lots of water. For treatment of pain you may use Tylenol (acetaminophen) up to 1000 mg every 6 hours as needed. For short-term pain management you may also use ibuprofen either 800 mg every 8 hours or 600 mg every 6 hours. Fill your colchicine prescription this morning and take the next dose when you pick it up. Tomorrow start taking once or twice a day until you see Dr. Teixeira. Discuss further management with Dr. Teixeira at your appointment. Because there appears to be a break in your skin near the area of irritation, infection cannot be ruled out as a contributing factor. For this reason, take antibiotics as prescribed and discuss further with Dr. Teixeira in follow-up. Elevating your foot to the level of your heart should help with pain and swelling as well. Call with questions or concerns, and return to the ER if you have worsening symptoms despite following these instructions. All discharge instructions reviewed with patient and/or family. Voiced understanding. Scripts Cephalexin (Cephalexin) 500 Mg Tablet 500 MG PO QID, #20 TAB Prov: LEIGHTON IRVING MD 11/09/21 Colchicine (Colchicine) 0.6 Mg Tablet 1 MG PO BID, #10 TAB Prov: LEIGHTON IRVING MD 11/09/21 Copy Copies To 1: MARIANO TEIXEIRA MD, JOSHUA T MD Nov 09, 2021 10:23
[2021-11-09] MEDS ORDERED: COLC0.6T59 PO (10:24)
[2021-11-09] MEDS ORDERED: CEPH500T PO (10:24)
== END 2021-11-09 10:35 | disposition home or self-care (01) ==
LOC: EDUNIT# 08:45 → ER 08:46
DX: S99.922A Unspecified injury of left foot, initial encounter (principal); M10.9 Gout, unspecified; X58.XXXA Exposure to other specified factors, initial encounter
CPT/HCPCS: 99283

== ENCOUNTER → 2022-02-04 | Outpatient (CLI) | payer MEDICARE ==
[~2022-02-04] MED LIST changes: +CEPH500T PO; +COLC0.6T59 PO
--- NOTE | 2022-02-04 10:59 | Diagnostic Imaging Report ---
INDICATION: Postmenopausal screening COMPARISON: None FINDINGS: AP Spine L1-L4: [BMD (g/cm2): 1.160] [T-Score: -0.7] [Z-Score: -0.9] [BMD Previous: na] [BMD % Change: na] LT Hip Neck: [BMD (g/cm2): 0.676] [T-Score: -3.0] [Z-Score: -2.4] LT Hip Total: [BMD (g/cm2):0.832] [T-Score:-1.9] [Z-Score: -1.8] [BMD Previous: na] [BMD % Change: na] RT Hip Neck: [BMD (g/cm2):0.887] [T-Score:-1.4] [Z-Score:-0.8] RT Hip Total: [BMD (g/cm2):0.883] [T-score:-1.5] [Z-Score:-1.4] [BMD Previous:na] [BMD % Change:na] *Indicates significant change from prior examination based on 95% confidence level. World Health Organization criteria for BMD interpretation classify patients as Normal (T-score at or above -1.0), Osteopenic (T-score between -1.0 and -2.5) or Osteoporotic (T-score at or below -2.5). LIMITATIONS AND MODIFICATION: None. FRACTURE RISK (FRAX SCORE): The ten year probability of (%): Major Osteoporotic Fracture: [13.7] Hip Fracture: [5.4] IMPRESSION: 1. Osteopenia 2. See below National Osteoporosis Foundation guidelines on when to potentially initiate pharmacologic therapy. Based on the National Osteoporosis Foundation Guidelines, pharmacologic treatment should be initiated in any of the following, unless clinical conditions suggest otherwise: * Any patient with prior fragility fracture of the hip or vertebrae. A spine fracture indicates 5X risk for subsequent spine fracture and 2X risk for subsequent hip fracture. * Osteoporosis (T-score <-2.5). * Postmenopausal women and men age 50 and older with low bone mass/osteopenia (T-score between -1.0 and -2.5) by DXA and 10-year major osteoporotic fracture greater than 20% or a 10-year probability of hip fracture greater than 3%. These fracture risks are supplied above in the FRAX score, if applicable. * Clinician judgement and/or patient preferences may indicate treatment for people with 10-year fracture probabilities above or below these levels. Dictated by: Dictated on workstation # [id number]
== END ==
LOC: RAD 09:31
PROVIDERS: ATTEND Internal Medicine
DX: M85.80 Other specified disorders of bone density and structure, unspecified site (principal); E21.3 Hyperparathyroidism, unspecified
CPT/HCPCS: 77080